=== PATIENT | female | born 1955 | race Caucasian/White ===

== ENCOUNTER 2020-07-27 19:47 | Emergency (ER) | payer OTHER, SELFPAY ==
[2020-07-27] VITALS (16 sets, daily range): BP systolic 140–192; BP diastolic 77–97; PULSE 60–78; RESP 8–20; TEMP 36.8; O2SAT 96–100
--- NOTE | ~2020-07-27 | XR_ITS ---
EXAMINATION: XR chest 2V DATE: 07/27/2020 20:49 INDICATION: Left-sided chest pain radiating down the left arm TECHNIQUE: PA and lateral views of the chest were obtained. COMPARISON: None FINDINGS: The lungs are clear with no focal airspace opacities, pulmonary edema, pleural effusion or pneumothor ax. The cardiomediastinal silhouette is normal. Dual lead pacemaker/AICD seen with leads projecting o ame the expected locations of the right atrium and right ventricle. Large calcified mediastinal lymph nodes consistent with old granulomatous disease. Cholecystectomy clips in right upper quadrant. Mild thoracic spondylosis. IMPRESSION: 1. No acute cardiopulmonary disease. Reviewed, dictated and finalized at location H. LOADER
--- NOTE | 2020-07-27 19:48 | ECG_ITS ---
Measurements Intervals [place] Rate: 68 P: 66 [place]: 166 QRS: -30 QRSD: 94 T: 12 QT: 441 QTc: 469 Interpretive Statements SINUS RHYTHM POSSIBLE LEFT ATRIAL ENLARGEMENT DELAYED PRECORDIAL R/S TRANSITION BORDERLINE ECG Electronically Signed On 07-27-2020 20:21:58 SLASHER TENDER HELPER by Cameron Rodrigues D.O.
--- NOTE | 2020-07-27 20:15 | PC.NURSE ---
patient in ED room 11 with elevated BP and left arm pain. see triage notes and initial assessment. patient on registered nurse cardiac telemetry. alert.oriented. daughter at bedside. patient initially frustrated with wait time and states that she had an EKG done but has not had labs drawn. states she has been here 30 minutes. SL inserted. labs drawn. warm blanket given. reviewed current treatment plan and expected wait time with patient and daughter. call light in reach.
[2020-07-27] MEDS: ASPIRIN 81 MG CHEWABLE TABLET 324 MG PO (20:30)
[2020-07-27 20:39] LABS: Basophils Absolute Auto 0.1 K/mm3 (0.0-0.1); Basophils Percent Auto 0.5 % (0.2-1.2); Eosinophils Absolute Auto 0.1 K/mm3 (0-0.3); Eosinophils Percent Auto 1.3 % (0-4.4); Hemoglobin 13.8 g/dL (12.0-15.0); Immature Granulocyte Absolute 0.04 K/mm3 (0.00-0.031); Immature Granulocyte Percent A 0.4 % (0-0.5); Lymphocytes Absolute Auto 1.04 K/mm3 (0.9-3.2); Mean Corpuscular HGB Conc 33.7 g/dl (32-36); Mean Corpuscular Hemoglobin 30.3 pg (26-34); Mean Corpuscular Volume 90.1 fl (80-100); Mean Platelet Volume 10.9 fl (7.4-10.4); Monocytes Absolute Auto 0.6 K/mm3 (0.1-0.6); Monocytes Percent Auto 6.7 % (2.6-8.5); Neutrophils Absolute Auto 7.6 K/mm3 (1.3-6.7); Neutrophils Percent Auto 80.1 % (45.5-73.1); Platelet Count Result 189 k/mm3 (150-375); Red Blood Count 4.55 M/mm3 (4.2-5.4); Red Cell Distribution Width 13.1 % (11.5-14.5); White Blood Count 9.5 K/mm3 (4.5-10.0)
[2020-07-27 20:50] LABS: Anion Gap 11 mmol/L (8-16); Blood Urea Nitrogen 18 mg/dL (7-17); Calcium 8.5 mg/dL (8.4-10.2); Carbon Dioxide 25 mmol/L (22-30); Chloride 105 mmol/L (98-107); Estimated Glomerular Filt Rate > 60; Glucose 164 mg/dL (65-105); INR 0.9; Potassium 3.2 mmol/L (3.4-5.0); Sodium 141 mmol/L (137-145)
[2020-07-27 20:51] LABS: Partial Thromboplastin Time 31.2 SECONDS (22.3-36.8)
--- NOTE | 2020-07-27 21:00 | ED.CHESTPAIN ---
HPI - Chest Pain General Chief Complaint: Chest Pain Stated Complaint: left arm pain Time Seen by Provider: 07/27/20 20:15 History of Present Illness HPI narrative: Patient is a 65-year-old female who presents the emergency department with chief complaint of chest pain. Patient reports that she had discomfort in her chest that radiated to her left arm. Patient reports that it is not improved by anything nor is worsened by anything. Patient reports that she has history of thyroid cancer and had a thyroidectomy that was complicated with having episodes of torsades that she had a AICD placed. The patient reports that she had a cardiac catheterization and stress test approximately 6 years ago that showed no evidence of blockages started at that time. Her Related Data Home Medications Medication Instructions Recorded Confirmed levothyroxine [Synthroid] 100 mcg DAILY 07/27/20 07/27/20 potassium chloride 20 meq PO DAILY 07/27/20 07/27/20 Allergies Allergy/AdvReac Type Severity Reaction Status Date / Time No Known Allergies Allergy Verified 07/27/20 22:34 Review of Systems Review of Systems: Narrative: CONSTITUTIONAL: Denies fever, chills, or sweats. EYES: Denies visual changes, redness, or discharge. ENT: Denies rhinorrhea, congestion, sore throat, or otalgia. CARDIOVASCULAR: Denies chest pain, palpitations, or edema. RESPIRATORY: Denies cough or dyspnea. GASTROINTESTINAL: Denies abdominal pain, nausea, vomiting, or diarrhea. GENITOURINARY: Denies dysuria or hematuria. SKIN: Denies rash or itching. MUSCULOSKELETAL: Denies back pain, joint pain, or myalgia. NEUROLOGIC: Denies headache, numbness, or weakness. PSYCHIATRIC: Denies anxiety or depression. All systems reviewed & are unremarkable except as noted in HPI and below PMFSH Comments Thyroid cancer, patient hemodynamically cardiac dysrhythmia room during prior COVID-19 low-dose infection AICD thyroidectomy Social history the patient denies smoking reports that she recently moved to the area after of her who from COVID-19 Exam Narrative: Exam Narrative: GENERAL: Well-appearing, well-nourished, and in no acute distress. HEAD: Normocephalic, atraumatic. EYES: PERRLA and EOMI. ENT: Nares clear, no rhinorrhea or epistaxis. Mucous membranes moist. NECK: Supple. CHEST: Clear to auscultation. No respiratory distress. HEART: Regular rate and rhythm. No murmur heard. Normal peripheral pulses. ABDOMEN: Soft, nontender, nondistended, normal active bowel sounds. EXTREMITIES: Normal range of motion. No edema. SKIN: Warm, dry, no rash. NEURO: No focal deficits. Alert and oriented x3. PSYCH: Normal mood and affect. Course Course Emergency Course: EKG shows sinus rhythm with no ST elevation or ST depression. Initial troponin was negative and repeat 3-hour troponin was negative. Patient's discomfort is feeling much better at this time Vital Signs Vital signs: Vital Signs Pulse Rate 70 07/27/20 19:56 Respiratory Rate 10 L 07/27/20 19:56 Pulse Oximetry 98 07/27/20 19:56 Temperature 36.8 C 07/27/20 23:25 Pulse Rate 60 07/27/20 23:25 Respiratory Rate 16 07/27/20 23:25 Blood Pressure 140/79 07/27/20 23:25 Pulse Oximetry 98 07/27/20 23:25 MDM - Chest Pain Lab Data Result diagrams: 07/27/20 20:32 07/27/20 20:32 Labs: Lab Results 07/27/20 07/27/20 07/27/20 Range/Units 20:32 20:32 20:32 WBC 9.5 (4.5-10.0) K/mm3 RBC 4.55 (4.2-5.4) M/mm3 Hgb 13.8 (12.0-15.0) g/dL Hct 41.0 (37.0-47.0) % MCV 90.1 (80-100) fl MCH 30.3 (26-34) pg MCHC 33.7 (32-36) g/dl RDW 13.1 (11.5-14.5) % Plt Count 189 (150-375) k/mm3 MPV 10.9 H (7.4-10.4) fl Immature Gran % (Auto) 0.4 (0-0.5) % Neut % (Auto) 80.1 H (45.5-73.1) % Lymph % (Auto) 11.0 L (18.3-44.2) % Mcdonough % (Auto) 6.7 (2.6-8.5) % Eos % (Auto) 1.3 (0-4.4) % Baso % (Auto) 0.5 (0.2-
[2020-07-27 21:02] LABS: Troponin I < 0.012 ng/mL (0.000-0.034)
--- NOTE | 2020-07-27 22:01 | PC.NURSE ---
provider at bedside. all test results reviewed with patient and daughter. will get repeat trop level around 2230 and plan for discharge. denies pain or needs at this time.
--- NOTE | 2020-07-27 22:35 | PC.NURSE ---
repeat trop drawn. patient wants to take monitors off and put her clothes back on. monitors removed. SL still in. daughter in room. call light in reach denies needs. aware of expected wait time for test results.
[2020-07-27 23:13] LABS: Troponin I < 0.012 ng/mL (0.000-0.034)
== END 2020-07-27 23:25 | disposition home or self-care (01) ==
PROVIDERS: Emergency Medicine; Emergency Provider Emergency Medicine; PCP Family Medicine
DX: R07.9 Chest pain, unspecified (principal); E89.0 Postprocedural hypothyroidism; Z85.850 Personal history of malignant neoplasm of thyroid; Z85.89 Personal history of malignant neoplasm of other organs and systems
CPT/HCPCS: 36415; 71046; 80048; 84484; 85025; 85610; 85730; 93005; 99284; A9270

== ENCOUNTER 2020-11-01 17:07 | Emergency (ER) | payer BC, SELFPAY ==
--- NOTE | ~2020-11-01 | XR_ITS ---
EXAMINATION: XR chest 2V DATE: 11/01/2020 17:47 INDICATION: Feeling of mass in throat. TECHNIQUE: Frontal and lateral views of the chest were obtained. COMPARISON: Chest 2 views 07/27/2020 FINDINGS: There is mild scarring at the lung apices. No pleural effusion or pneumothorax. The heart s ize is normal. Calcified mediastinal lymph nodes are consistent with old granulomatous disease. There is a left chest wall pacer with leads in the right atrium and right ventricle. Surgical clips in the right upper quadrant are likely from cholecystectomy. IMPRESSION: 1. Mild scarring at the lung apices. Reviewed, dictated and finalized at location A. SSED OR IMPRESSED LETTERING PAINTER
--- NOTE | ~2020-11-01 | XR_ITS ---
. EXAMINATION: XR soft tissue neck DATE: 11/01/2020 17:47 INDICATION: Feeling a mass in the throat. TECHNIQUE: 2 views of the neck soft tissues were obtained. COMPARISON: None. FINDINGS: The palatine tonsils, epiglottis, prevertebral soft tissues, and airway are normal. There a re surgical clips in the neck. IMPRESSION: 1. Normal neck soft tissues. Reviewed, dictated and finalized at location A. PENDENT SALES REPRESENTATIVE
--- NOTE | 2020-11-01 17:09 | ED.GENADULT ---
HPI - General Adult General Chief complaint: Skin/Abscess/Foreign Body Stated complaint: feeling like something is stuck in throat Time Seen by Provider: 11/01/20 17:09 Source: patient Mode of arrival: ambulatory Limitations: no limitations History of Present Illness HPI narrative: 65-year-old female patient presents to the [facility] with complaints of a sensation like something is in her throat. Patient states that she woke up about 330 this morning with the sensation and felt like she had to hack up a hairball . Patient states that she had Covid back in May and has been having intermittent nausea since then. Patient states she did take some meclizine which has helped the nausea. Denies any chest pain, shortness of breath. Patient states she is not having any trouble breathing or swallowing. Patient states she has been able to eat and drink without difficulty. Patient states she does take omeprazole twice a day as well as takes Tums intermittently. Related Data Home Medications Medication Instructions Recorded Confirmed levothyroxine [Synthroid] 100 mcg PO DAILY 11/01/20 11/01/20 omeprazole 20 mg PO DAILY 11/01/20 11/01/20 potassium chloride 10 meq PO DAILY 11/01/20 11/01/20 Allergies Allergy/AdvReac Type Severity Reaction Status Date / Time No Known Allergies Allergy Verified 11/01/20 17:09 Review of Systems Review of Systems: Narrative: CONSTITUTIONAL: Denies fever, chills, or sweats. EYES: Denies visual changes, redness, or discharge. ENT: Denies rhinorrhea, congestion, sore throat, or otalgia. Positive sensation of something in her throat since this morning CARDIOVASCULAR: Denies chest pain, palpitations, or edema. RESPIRATORY: Denies cough or dyspnea. GASTROINTESTINAL: Denies abdominal pain, nausea, vomiting, or diarrhea. GENITOURINARY: Denies dysuria or hematuria. SKIN: Denies rash or itching. MUSCULOSKELETAL: Denies back pain, joint pain, or myalgia. NEUROLOGIC: Denies headache, numbness, or weakness. PSYCHIATRIC: Denies anxiety or depression. [facility] Past Medical History Medical History (Updated 11/01/20 @ 17:53 by JIMENEZ Ochoa) GERD (gastroesophageal reflux disease) ICD (implantable cardioverter-defibrillator) battery depletion QT prolongation Thyroid cancer TMJ (dislocation of temporomandibular joint) Torsades de pointes Surgical History Surgical History (Updated 11/01/20 @ 17:49 by JIMENEZ Ochoa) History of appendectomy Hx of cholecystectomy Social History Social History Gender identity (if verbalized by the patient): Female Comments At the time of my signature I agree with nursing past medical history, surgical, social, and family history. There is no relevant family history pertinent to the presenting complaint. Exam Narrative: Exam Narrative: GENERAL: Well-appearing, well-nourished, and in no acute distress. HEAD: Normocephalic, atraumatic. EYES: PERRLA and EOMI. ENT: Nares clear, no rhinorrhea or epistaxis. Mucous membranes moist. Posterior pharynx with no erythema, tonsillar enlargement, exudates or lesions present. NECK: Supple. No lymphadenopathy CHEST: Clear to auscultation. No respiratory distress. Patient able talk in clear complete sentences. HEART: Regular rate and rhythm. No murmur heard. Normal peripheral pulses. ABDOMEN: Soft, nontender, nondistended, normal active bowel sounds. EXTREMITIES: Normal range of motion. No edema. SKIN: Warm, dry, no rash. NEURO: No focal deficits. Alert and oriented x3. Course Reevaluation(s) Reevaluation #1: Reevaluated patient after her x-rays had resulted. Notified her that the x-rays do not show any obvious foreign bodies or masses at this time. Discussed with patient that she could definitely have a flareup worsening of her GERD. Discussed with patient and we will go ahead and put her on some Pepcid along with her omeprazole for the next couple of weeks and s
[2020-11-01 17:18] VITALS: BP 132/78; PULSE 76; RESP 20; TEMP 36.7; O2SAT 99
== END 2020-11-01 17:55 | disposition home or self-care (01) ==
PROVIDERS: Emergency Provider Nurse Practitioner Family; PCP Family Medicine
DX: K21.9 Gastro-esophageal reflux disease without esophagitis (principal); Z95.810 Presence of automatic (implantable) cardiac defibrillator; Z85.850 Personal history of malignant neoplasm of thyroid
CPT/HCPCS: 70360; 71046; 99213; G0463

== ENCOUNTER 2021-06-27 02:47 | Day surgery (SDC) | payer MEDICARE, OTHER, SELFPAY ==
[2021-06-11 14:38] VITALS: BMI 24.9
--- NOTE | 2021-06-26 10:25 | WPDANESEPPF ---
Anes - Initial Pre Proc Eval Procedure: Operation Date: 06/27/21 09:15 Proposed Procedures p Esophagogastroduodenoscopy & Screening Colonoscopy - Ralph Hammonds MD Date/Time: 06/26/21 10:25 Surgeon: Ralph Hammonds MD Pre Op Diagnosis: neoplasm screening, GERD Patient Data Age: 66 Gender: F Height: 1.65 m Weight: 68 kg Allergies Allergy/AdvReac Type Severity Reaction Status Date / Time No Known Allergies Allergy Verified 06/27/21 08:18 Home Medications Medication Instructions Recorded Confirmed Type levothyroxine [Synthroid] 100 mcg PO DAILY 11/01/20 06/27/21 History omeprazole 20 mg PO DAILY 11/01/20 06/27/21 History potassium chloride 10 meq PO DAILY 11/01/20 06/27/21 History cholecalciferol (vitamin D3) 50 mcg PO DAILY 06/11/21 06/27/21 History [Vitamin D3] Patient hx anesthesia problems: none Family hx anesthesia problems: none Results Review: All pre-operative results and documents have been reviewed as part of the pre-operative evaluation. [facility] Past Medical History Medical History (Updated 05/31/21 @ 09:33 by Ralph Hammonds MD) Colon cancer screening GERD (gastroesophageal reflux disease) ICD (implantable cardioverter-defibrillator) battery depletion QT prolongation Thyroid cancer TMJ (dislocation of temporomandibular joint) Torsades de pointes Surgical History Surgical History History of appendectomy Hx of cholecystectomy Social History Social History (Updated 05/31/21 @ 09:09 by Natali Paige CMA) Smoking status: Never smoker Alcohol intake: never Substance use: never Living arrangements: with family Gender identity (if verbalized by the patient): Female Spiritual care concerns: No Anes - Eval Final PreProcedure Day of Procedure 06/26/21 10:25 Patient weight: normal Heart: regular rate and rhythm Lungs: clear to auscultation and normal air movement Airway: Mallampati scale class II Neurological: alert and oriented Last oral intake: >/= 8 hours ASA classification: IV Emergent: no Anesthetic plan: proceed Anesthesia type and monitoring: general GIVS and standard monitoring Results Review: All pre-operative results and documents have been reviewed as part of the pre-operative evaluation. Informed Consent: The patient's anesthetic plan and its attendant risks and benefits were discussed with the patient/family/POA. Questions were solicited and answers provided to the satisfaction of the patient/family/POA.
[2021-06-27 08:20] VITALS: BP 124/95; PULSE 84; RESP 16; TEMP 37; O2SAT 98
[2021-06-27] MEDS: LACTATED RINGERS 1,000 ML 150 ML IV CONT (08:30)
--- NOTE | 2021-06-27 09:47 | WPDHPUPDATE1 ---
History and Physical Update Update Date/Time: 06/27/21 09:47 History and Physical has been reviewed, including an updated exam of the patient. There are NO changes in the patient's condition. Risks, benefits, and alternatives have been discussed and questions answered. Patient agrees to proceed with procedure.
[2021-06-27 10:20] VITALS: BP 103/78; PULSE 85; RESP 21; O2SAT 100
[2021-06-27 10:30] VITALS: BP 129/72; PULSE 68; RESP 14; O2SAT 99
[2021-06-27 10:40] VITALS: BP 133/68; PULSE 70; RESP 24; O2SAT 100
== END 2021-06-27 11:04 | disposition home or self-care (01) ==
PROVIDERS: PCP Family Medicine; Visit Provider Internal Medicine Gastroenterology
PROC: 0DJ08ZZ Inspection of Upper Intestinal Tract, Via Natural or Artificial Opening Endoscopic (ICD-10-PCS; CPT 43235; principal; 2021-06-27 09:15)
DX: Z12.11 Encounter for screening for malignant neoplasm of colon (principal); K64.8 Other hemorrhoids; K44.9 Diaphragmatic hernia without obstruction or gangrene; K29.50 Unspecified chronic gastritis without bleeding; K21.9 Gastro-esophageal reflux disease without esophagitis; Z85.850 Personal history of malignant neoplasm of thyroid
CPT/HCPCS: 43239; G0121; 88305; J2704; J7120

== ENCOUNTER 2021-07-22 05:22 | Emergency (ER) | payer MEDICARE, OTHER, SELFPAY ==
--- NOTE | ~2021-07-22 | CT_ITS ---
EXAMINATION: CT thoracic spine wo con DATE: 07/22/2021 06:09 INDICATION: Thoracic back pain TECHNIQUE: Computed tomography (CT) of the thoracic spine was performed without intravenous contrast. The dose-length product (DLP) was 470.91 mGy-cm. Iterative reconstruction was used. COMPARISON: None FINDINGS: There is no fracture, dislocation, or subluxation. Thoracic dextrocurvature is noted. There is mild loss of intervertebral disc space height in the midthoracic spine. The vertebral body height s are maintained. The paravertebral soft tissues are normal. Small degenerative osteophytes project f rom the anterior endplates of multiple vertebral bodies. IMPRESSION: 1. Mild thoracic spondylosis without acute findings. Reviewed, dictated and finalized at location A. TEACHER
[2021-07-22 05:28] VITALS: BP 179/91; PULSE 97; RESP 18; TEMP 36.3; O2SAT 99
[2021-07-22] MEDS: KETOROLAC 30 MG/ML VIAL (*BKC) IM (05:50)
--- NOTE | 2021-07-22 05:57 | PC.NURSE ---
Patient in CT at this time.
--- NOTE | 2021-07-22 06:15 | ED.GENADULT ---
HPI - General Adult General Chief complaint: Back Pain/Injury <Leno Hammond MD - Last Filed: 07/22/21 06:18> Stated complaint: back pain since fri <Leno Hammond MD - Last Filed: 07/22/21 06:18> Time Seen by Provider: 07/22/21 05:37 <Leno Hammond MD - Last Filed: 07/22/21 06:18> History of Present Illness HPI narrative: Patient is a 66-year-old female who presents the emergency department. The patient is said several ago right is with her family and that she started having pain in her low back and also in her thoracic area. Patient reports she was manipulated by a chiropractor and still has been having pain severe in the thoracic region between her shoulder blades and reports that tonight she had some tingling in her left arm <Leno Hammond MD - Last Filed: 07/22/21 06:18> Related Data Home medications: Home Medications Medication Instructions Recorded Confirmed levothyroxine [Synthroid] 100 mcg PO DAILY 11/01/20 06/27/21 omeprazole 20 mg PO DAILY 11/01/20 06/27/21 potassium chloride 10 meq PO DAILY 11/01/20 06/27/21 cholecalciferol (vitamin D3) 50 mcg PO DAILY 06/11/21 06/27/21 [Vitamin D3] meclizine mg 07/22/21 <Leno Hammond MD - Last Filed: 07/22/21 06:18> Allergies/adverse reactions: Allergies Allergy/AdvReac Type Severity Reaction Status Date / Time No Known Allergies Allergy Verified 07/22/21 05:34 <Leno Hammond MD - Last Filed: 07/22/21 06:18> Review of Systems Review of Systems: A 10 system review of systems was completed on the patient and is negative except for what is stated in the HPI. Nursing and ancillary documentation was reviewed. <Leno Hammond MD - Last Filed: 07/22/21 06:18> PMFSH Past Medical History Medical History: Medical History Colon cancer screening GERD (gastroesophageal reflux disease) ICD (implantable cardioverter-defibrillator) battery depletion QT prolongation Thyroid cancer TMJ (dislocation of temporomandibular joint) Torsades de pointes <Leno Hammond MD - Last Filed: 07/22/21 06:18> Surgical History Surgical History: Surgical History History of appendectomy Hx of cholecystectomy <Leno Hammond MD - Last Filed: 07/22/21 06:18> Social History Social History: Social History Smoking status: Never smoker Alcohol intake: never Substance use: never Gender identity (if verbalized by the patient): Female Spiritual care concerns: No <Leno Hammond MD - Last Filed: 07/22/21 06:18> Exam Narrative: GENERAL: Well-appearing, well-nourished, and in no acute distress. HEAD: Normocephalic, atraumatic. EYES: PERRLA and EOMI. ENT: Nares clear, no rhinorrhea or epistaxis. Mucous membranes moist. NECK: Supple. CHEST: Clear to auscultation. No respiratory distress. HEART: Regular rate and rhythm. No murmur heard. Normal peripheral pulses. ABDOMEN: Soft, nontender, nondistended, normal active bowel sounds. EXTREMITIES: Normal range of motion. No edema. SKIN: Warm, dry, no rash. NEURO: No focal deficits. Alert and oriented x3. PSYCH: Normal mood and affect. <Leno Hammond MD - Last Filed: 07/22/21 06:18> Course Reevaluation(s) Reevaluation #1: Received signout on the patient pending imaging and urine. Imaging was without acute process urine did appear infectious. Patient was reassessed notified of results she did report some increased urinary frequency and subjective fever at home prior to arrival to the ER. Patient all did feel improved. Suspect UTI possibly early pyelonephritis patient is comfortable with a trial of outpatient antibiotics given her improvement. Return precautions given <Refugio Razo
[2021-07-22 06:40] LABS: Add Urine Microscopic? YES; Appearance Urine Cloudy (Clear); Bacteria Urine Trace /hpf; Bilirubin Urine Negative (Negative); Blood Urine Negative (Negative); Color Urine Yellow (Yellow); Glucose Urine UA Negative (Negative); Ketones Urine Negative (Negative); Leukocyte Esterase Ur 1+ LEU/UL (Negative); Mucus Urine Rare /lpf; Nitrate Urine Negative (Negative); Protein Urine 1+ mg/dL (Negative); Specific Grav Ur 1.013 (1.001-1.035); Urobilinogen Urine Negative mg/dL (<2.0); WBC Urine >75 /hpf
[2021-07-22 07:02] VITALS: BP 155/83; PULSE 90; RESP 17; O2SAT 98
== END 2021-07-22 07:56 | disposition home or self-care (01) ==
PROVIDERS: Emergency Medicine; Emergency Provider Emergency Medicine; PCP Family Medicine
DX: N39.0 Urinary tract infection, site not specified (principal); M54.9 Dorsalgia, unspecified; Z87.19 Personal history of other diseases of the digestive system; Z85.850 Personal history of malignant neoplasm of thyroid; Z90.89 Acquired absence of other organs; Z90.49 Acquired absence of other specified parts of digestive tract
CPT/HCPCS: 72128; 81001; 87077; 87086; 87186; 96372; 99284; J1885

== ENCOUNTER 2021-08-30 13:46 | Emergency (ER) | payer MEDICARE, OTHER, SELFPAY ==
[2021-08-30 14:27] VITALS: BP 136/74; PULSE 90; RESP 18; TEMP 37.3; O2SAT 98
--- NOTE | 2021-08-30 15:42 | ED.URI ---
HPI - URI/Sore Throat General Chief Complaint: Upper Respiratory Infection Stated Complaint: Headache,Nausea,Diarrhea,Cough,Body Aches Time Seen by Provider: 08/30/21 15:15 Source: patient, family and RN notes reviewed Mode of arrival: ambulatory Limitations: no limitations History of Present Illness HPI Narrative: 66 [facility] old [facility] by son with stated symptoms of headache cough, sore throat with some nausea and episodes of diarrhea. She reports that she has had symptoms for the past 3-4 days. She states that she has been COVID and flu vacciated and took home COVID test today which was negative.Patient reports that she has been taking some Tylenol and Ibuprofen and some OTC sinus medication. MD elicited complaint: cough, sore throat, rhinorrhea, nasal congestion and other (headache with nausea and diarrhea) Related Data Home Medications Medication Instructions Recorded Confirmed levothyroxine [Synthroid] 0.1 mcg DAILY 08/30/21 08/30/21 omeprazole 20 mg BID 08/30/21 08/30/21 potassium chloride 10 meq BID 08/30/21 08/30/21 Allergies Allergy/AdvReac Type Severity Reaction Status Date / Time anything prolongs QT Allergy Unknown Uncoded 08/30/21 14:42 Review of Systems Review of Systems: CONSTITUTIONAL: Reports low grade fever, no chills, or sweats. EYES: Denies visual changes, redness, or discharge. ENT:Positive for rhinorrhea, congestion, sore throat, no otalgia. CARDIOVASCULAR: Denies chest pain, palpitations, or edema. RESPIRATORY: Positive for cough denies dyspnea. GASTROINTESTINAL: Denies abdominal pain, positive for nausea,no vomiting, positive for episodes of diarrhea. GENITOURINARY: Denies dysuria or hematuria. SKIN: Denies rash or itching. MUSCULOSKELETAL: Denies back pain, joint pain,denies body aches. NEUROLOGIC: Positive for headache,no numbness, or weakness. PSYCHIATRIC: Denies anxiety or depression. All systems reviewed & are unremarkable except as noted in HPI and below PMFSH Past Medical History Medical History Colon cancer screening GERD (gastroesophageal reflux disease) ICD (implantable cardioverter-defibrillator) battery depletion QT prolongation Thyroid cancer TMJ (dislocation of temporomandibular joint) Torsades de pointes Surgical History Surgical History History of appendectomy Hx of cholecystectomy Social History Social History Smoking status: Never smoker Alcohol intake: never Substance use: never Gender identity (if verbalized by the patient): Female Spiritual care concerns: No Comments At time of signature, agree with nursing past medical, surgical, social and family history. There is no relevant family history pertinent to the presenting complaint Exam Narrative: GENERAL: Well-appearing, well-nourished, and in no acute distress. HEAD: Normocephalic, atraumatic. EYES: PERRLA and EOMI. ENT: Nares red with membranes swollen clear rhinorrhea no epistaxis. Mucous membranes moist.TM's normal with good light reflex, some dried wax noted.throat red with no lesions or exudates no acute tonsil enlargement. NECK: Supple.no lymphadenopathy CHEST: Clear to auscultation. No respiratory distress.cough noted with no tachypnea or dyspnea, SAO2 98% on room air. HEART: Regular rate and rhythm. No murmur heard. Normal peripheral pulses. ABDOMEN: Soft, nontender to palpation., nondistended, normal active bowel sounds. EXTREMITIES: Normal range of motion. No edema. SKIN: Warm, dry, no rash. NEURO: No focal deficits. Alert and oriented x3. Course Vital Signs Vital signs: Vital Signs Temperature 37.3 C 08/30/21 14:27 Pulse Rate 90 08/30/21 14:27 Respiratory Rate 18 08/30/21 14:27 Blood Pressure 136/74 08/30/21 14:27 Pulse Oximetry 98 08/30/21 14:27 Temperature 37.3 C
== END 2021-08-30 16:18 | disposition home or self-care (01) ==
PROVIDERS: Emergency Provider Registered Nurse; PCP Family Medicine
DX: J32.9 Chronic sinusitis, unspecified (principal); B96.89 Other specified bacterial agents as the cause of diseases classified elsewhere
CPT/HCPCS: 87081; 87804; 87880; 99213; G0463

== ENCOUNTER 2021-09-20 09:19 | Outpatient (CLI) | payer MEDICARE, OTHER, SELFPAY ==
--- NOTE | ~2021-09-20 | XR_ITS ---
EXAMINATION: XR chest 2V EXAM DATE: 09/20/2021 09:33 INDICATION: COVID follow-up. TECHNIQUE: Frontal and lateral projections of the chest obtained and reviewed. Comparison is made to prior examination from 11/01/2020. FINDINGS: Mild hyperinflation with narrow cardiac silhouette. There is a dual lead pacemaker/AICD se en with leads projecting over the expected locations of the right atrial appendage and right ventricl e. There are cholecystectomy clips. No confluent consolidation, pneumothorax or pleural effusion susp ected. There are no osseous abnormalities identified. IMPRESSION: No focal airspace disease. Reviewed, dictated and finalized at location A. RLEADER IMPRESSION: No focal airspace disease.
== END 2021-09-20 09:20 | disposition home or self-care (01) ==
PROVIDERS: PCP Family Medicine; Visit Provider Family Medicine
DX: R05.9 Cough, unspecified (principal)
CPT/HCPCS: 71046

== ENCOUNTER 2021-10-29 16:37 | Emergency (ER) | payer MEDICARE, OTHER, SELFPAY ==
--- NOTE | ~2021-10-29 | CT_ITS ---
EXAMINATION: CT abdomen pelvis w con EXAM DATE: 10/30/2021 00:15 INDICATION: Epigastric pain X 1 DAY. TECHNIQUE: Spiral CT of the abdomen and pelvis was performed following intravenous injection of 100 m L Omnipaque 350. Axial, coronal and sagittal images of the abdomen and pelvis were reviewed. The do se-length product (DLP) for this examination was 388.26 mGy-cm. The exposure was tailored according to patient size (auto mA exposure control), and iterative reconstruction (ASIR) was used as additiona l dose reduction technique. There is no prior study for comparison. FINDINGS: The liver, spleen, adrenal glands and pancreas are unremarkable. There are cholecystectomy clips. Portal and splenic veins are patent. Kidneys enhance symmetrically. There is no hydronephr osis. There is a 6 cm right renal cyst. The uterus is retroverted and morphologically normal. The bladder is unremarkable. There is no retroperitoneal or pelvic lymphadenopathy. The appendix is not positively visualized. There is no pericecal inflammatory change to suggest appe ndicitis. The stomach and small bowel are unremarkable. There is expected amount of colonic stool. No free intraperitoneal gas. The heart is normal in size. There are no pericardial or pleural e ffusions. The lung bases are unremarkable. The bones are unremarkable. Small bone island in L3. Car diac/AICD lead. IMPRESSION: 1. No acute intra-abdominal findings. Reviewed, dictated and finalized at location A. [employer] O[employer]UPATIONAL THER[employer]IST
[2021-10-29 16:40] VITALS: BP 164/88; PULSE 73; RESP 18; TEMP 36.4; O2SAT 100
[2021-10-29 20:23] VITALS: BP 152/78; PULSE 70; RESP 17; TEMP 36.6; O2SAT 99
--- NOTE | 2021-10-29 22:42 | ECG_ITS ---
Measurements Intervals [place] Rate: 72 P: 71 [place]: 177 QRS: -10 QRSD: 90 T: 30 QT: 433 QTc: 477 Interpretive Statements SINUS RHYTHM POSSIBLE LEFT ATRIAL ENLARGEMENT CANNOT RULE OUT SEPTAL INFARCT, AGE INDETERMINATE BORDERLINE ST ABNORMALITY- ANTEROLATERAL LEADS ABNORMAL ECG Electronically Signed On 10-30-2021 6:17:10 INSIDE SALES PROFESSIONAL by Cameron Rodrigues D.O.
--- NOTE | 2021-10-29 23:01 | ED.ABDPAIN ---
HPI - Abdominal Pain General Chief Complaint: Abdominal Pain Stated Complaint: epigastric pain, diaphoretic Time Seen by Provider: 10/29/21 22:44 Source: patient Mode of arrival: ambulatory Limitations: no limitations History of Present Illness HPI narrative: This is a 66 year old female that presents to the ER for epigastric pain. Reports it started earlier this afternoon. It has been constant since onset, but has improved. Reports history of similar episodes for which she has been diagnosed with Sphincter of Oddi spasm. Reports the pain is an intense ache. Denies fever, chest pain, shortness of breath, nausea, or vomiting. Related Data Home Medications Medication Instructions Recorded Confirmed levothyroxine [Synthroid] 0.1 mcg DAILY 08/30/21 08/30/21 omeprazole 20 mg BID 08/30/21 08/30/21 potassium chloride 10 meq BID 08/30/21 08/30/21 Allergies Allergy/AdvReac Type Severity Reaction Status Date / Time anything prolongs QT Allergy Unknown Uncoded 08/30/21 14:42 Review of Systems Review of Systems: CONSTITUTIONAL: Denies fever CARDIOVASCULAR: Denies chest pain RESPIRATORY: Denies dyspnea. GASTROINTESTINAL: Reports abdominal pain. Denies nausea, vomiting, or diarrhea. GENITOURINARY: Denies dysuria All systems reviewed & are unremarkable except as noted in HPI and below PMFSH Past Medical History Medical History Colon cancer screening GERD (gastroesophageal reflux disease) ICD (implantable cardioverter-defibrillator) battery depletion QT prolongation Thyroid cancer TMJ (dislocation of temporomandibular joint) Torsades de pointes Surgical History Surgical History History of appendectomy Hx of cholecystectomy Social History Social History Smoking status: Never smoker Alcohol intake: never Substance use: never Gender identity (if verbalized by the patient): Female Spiritual care concerns: No Exam Narrative: GENERAL: Well-appearing, well-nourished, and in no acute distress. HEAD: Normocephalic, atraumatic. EYES: EOMI. CHEST: Clear to auscultation. No respiratory distress. No wheezes rales or rhonchi HEART: Regular rate and rhythm. No murmur heard. Normal peripheral pulses. ABDOMEN: Soft, nondistended, normal active bowel sounds. Tender to palpation in epigastrium, without guarding EXTREMITIES: Normal range of motion. No edema. SKIN: Warm, dry, no rash. NEURO: No focal deficits. Alert and oriented x3. PSYCH: Normal mood and affect Course Vital Signs Vital signs: Vital Signs Temperature 97.6 F 10/29/21 16:40 Pulse Rate 73 10/29/21 16:40 Respiratory Rate 18 10/29/21 16:40 Blood Pressure 164/88 H 10/29/21 16:40 Pulse Oximetry 100 10/29/21 16:40 Temperature 97.9 F 10/29/21 20:23 Pulse Rate 70 10/29/21 23:35 Respiratory Rate 16 10/29/21 23:35 Blood Pressure 163/80 H 10/29/21 23:35 Pulse Oximetry 100 10/29/21 23:35 MDM - Abdominal Pain MDM Narrative Medical decision making narrative: Patient presents to the emergency department for epigastric pain present since this afternoon. She is afebrile and nontoxic-appearing. Abdominal exam is benign. CBC and metabolic panel without concerning findings. Lipase is normal. UA without evidence of infection. CT scan of the abdomen and pelvis shows findings consistent with distal esophagitis and antral gastritis. EKG without acute ST changes. Patient was updated on case findings. She reports relief with Protonix. 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 She was given warnings to return to the ER Lab Data Attestation: I reviewed the patient's lab results. Result diagrams: 10/29/21 23:28 10/29/21 23:28 Labs: Lab Results 10/29/21 10/29/21 10/29/21 Range/Units 23:28 23:28 23:28 WBC 7.4 (4.5-10.0) K/mm3 RB
[2021-10-29 23:35] VITALS: BP 163/80; PULSE 70; RESP 16; O2SAT 100
[2021-10-29 23:36] LABS: Basophils Percent Auto 0.5 % (0.2-1.2); Eosinophils Absolute Auto 0.1 K/mm3 (0-0.3); Eosinophils Percent Auto 1.7 % (0-4.4); Hematocrit 41.9 % (37.0-47.0); Immature Granulocyte Absolute 0.03 K/mm3 (0.00-0.031); Immature Granulocyte Percent A 0.4 % (0-0.5); Lymphocytes Absolute Auto 1.86 K/mm3 (0.9-3.2); Mean Corpuscular HGB Conc 33.4 g/dl (32-36); Mean Corpuscular Hemoglobin 30.8 pg (26-34); Mean Corpuscular Volume 92.1 fl (80-100); Mean Platelet Volume 10.9 fl (7.4-10.4); Monocytes Absolute Auto 0.6 K/mm3 (0.1-0.6); Monocytes Percent Auto 8.5 % (2.6-8.5); Neutrophils Absolute Auto 4.7 K/mm3 (1.3-6.7); Neutrophils Percent Auto 63.9 % (45.5-73.1); Platelet Count Result 198 k/mm3 (150-375); Red Blood Count 4.55 M/mm3 (4.2-5.4); White Blood Count 7.4 K/mm3 (4.5-10.0)
[2021-10-29] MEDS: PANTOPRAZOLE SODIUM IV 40 MG VIAL IV PUSH (23:36)
[2021-10-29 23:46] LABS: Add Urine Microscopic? YES; Appearance Urine Clear (Clear); Bilirubin Urine Negative (Negative); Blood Urine Negative (Negative); Color Urine Yellow (Yellow); Glucose Urine UA Negative (Negative); Ketones Urine 1+ mg/dL (Negative); Leukocyte Esterase Ur Negative LEU/UL (Negative); Mucus Urine Rare /lpf; Nitrate Urine Negative (Negative); Protein Urine Negative (Negative); RBC Urine 0-2 /hpf (0-2); Specific Grav Ur 1.017 (1.001-1.035); Urobilinogen Urine Negative mg/dL (<2.0); WBC Urine 0-3 /hpf
[2021-10-29 23:53] LABS: Alanine Aminotransferase 19 U/L (4-35); Albumin Level 4.5 g/dL (3.5-5.1); Alkaline Phosphatase 80 U/L (38-126); Anion Gap 8 mmol/L (8-16); Aspartate Amino Transferase 35 U/L (14-36); Bilirubin,Total 1.2 mg/dL (0.2-1.3); Blood Urea Nitrogen 22 mg/dL (7-17); Calcium 8.4 mg/dL (8.4-10.2); Carbon Dioxide 24 mmol/L (22-30); Chloride 105 mmol/L (98-107); Estimated CRCL calculation 62 ml/min; Estimated Glomerular Filt Rate > 60; Glucose 95 mg/dL (65-110); Lipase 115 U/L (23-300); Potassium 3.9 mmol/L (3.4-5.0); Sodium 137 mmol/L (137-145)
[2021-10-30 01:34] VITALS: BP 153/91; PULSE 100; RESP 14; O2SAT 100
== END 2021-10-30 01:35 | disposition home or self-care (01) ==
PROVIDERS: Physician Assistant; Emergency Provider Emergency Medicine; PCP Family Medicine
DX: K29.00 Acute gastritis without bleeding (principal); K21.9 Gastro-esophageal reflux disease without esophagitis; Z85.850 Personal history of malignant neoplasm of thyroid; R94.31 Abnormal electrocardiogram [ECG] [EKG]
CPT/HCPCS: 36415; 74177; 80053; 81001; 83690; 85025; 85610; 85730; 93005; 96374; 99284; C9113; Q9967

== ENCOUNTER 2021-12-04 14:58 | Outpatient (CLI) | payer MEDICARE, OTHER, SELFPAY ==
[2021-12-04 15:32] LABS: Alanine Aminotransferase 25 U/L (4-35); Albumin Level 4.1 g/dL (3.5-5.1); Alkaline Phosphatase 83 U/L (38-126); Aspartate Amino Transferase 27 U/L (14-36); Bilirubin,Total 0.4 mg/dL (0.2-1.3)
== END 2021-12-04 14:59 | disposition home or self-care (01) ==
LOC: ANHLAB 15:02
PROVIDERS: PCP Family Medicine; Visit Provider Nurse Practitioner Family
DX: R10.13 Epigastric pain (principal)
CPT/HCPCS: 36415; 80076

== ENCOUNTER 2022-10-23 04:03 | Emergency (ER) | payer MEDICARE, OTHER, SELFPAY ==
[2022-10-23 04:07] VITALS: BP 170/90; PULSE 76; RESP 20; TEMP 37; O2SAT 100
[2022-10-23 06:23] VITALS: BP 149/85; PULSE 64; RESP 16; O2SAT 100
== END 2022-10-23 06:25 | disposition left against medical advice (07) ==
PROVIDERS: PCP Family Medicine
DX: R51.9 Headache, unspecified (principal)
CPT/HCPCS: 99199

== ENCOUNTER 2022-12-21 16:06 | Emergency (ER) | payer MEDICARE, OTHER, SELFPAY ==
[2022-12-21 16:21] VITALS: BP 140/75; PULSE 80; RESP 18; TEMP 37.2; O2SAT 98
--- NOTE | 2022-12-21 16:52 | ED.URI ---
HPI - URI/Sore Throat General Chief Complaint: Upper Respiratory Infection Stated Complaint: sorethroat Time Seen by Provider: 12/21/22 16:25 Source: patient Mode of arrival: ambulatory Limitations: no limitations History of Present Illness HPI Narrative: Yasmine is a 67-year-old female patient presenting to the clinic today with complaints of sore throat, cough, and mild congestion times rate 3 days. She reports that her grandkids were positive with strep. She denies any fever or chills. MD elicited complaint: cough, sore throat and nasal congestion Related Data Home Medications Medication Instructions Recorded Confirmed levothyroxine 100 mcg tablet 0.1 mcg DAILY 08/30/21 12/04/21 (Synthroid) omeprazole 20 mg capsule,delayed 20 mg BID 08/30/21 12/04/21 release potassium chloride 10 mEq 10 meq BID 08/30/21 12/04/21 capsule,extended release cholecalciferol (vitamin D3) 250 2,000 mcg PO DAILY 12/04/21 12/04/21 mcg (10,000 unit) capsule Allergies Allergy/AdvReac Type Severity Reaction Status Date / Time anything prolongs QT Allergy Unknown Uncoded 12/04/21 13:50 Review of Systems Review of Systems: Pertinent positives per HPI. Patient denies any fever, chills, rash, headache, visual changes, dizziness, shortness of breath, chest pain, palpitations, nausea, vomiting, diarrhea, constipation, abdominal pain, or any urinary issues. [facility] Past Medical History Medical History (Updated 12/21/22 @ 16:53 by Ignacio Holbrook APRN) GERD (gastroesophageal reflux disease) ICD (implantable cardioverter-defibrillator) battery depletion QT prolongation Thyroid cancer TMJ (dislocation of temporomandibular joint) Torsades de pointes Surgical History Surgical History History of appendectomy Hx of cholecystectomy Social History Social History Smoking status: Never smoker Alcohol intake: never Substance use: never Living arrangements: with family Gender identity (if verbalized by the patient): Female Spiritual care concerns: No Comments At the time of my signature, I reviewed and agree with the nursing past medical, surgical, social, and family history. There is no relevant family history pertinent to the patient complaint. Exam Narrative: General: Well-developed, well nourished, in no apparent distress Head: Normocephalic, atraumatic Eyes: Pupils equally round and reactive to light bilaterally, EOM intact, sclera and conjunctive clear, no discharge, lids normal Ears: TMs intact and clear, ear canals clear, no drainage, grossly hearing normal. Nose: Nares patent, clear discharge, no inflammation, no sinus tenderness. Mouth: Oral pharynx mildly red without lesions or masses, good dentition, MMM. Postnasal drip Neck: Supple, trachea midline, no enlargement of anterior or posterior cervical nodes, no thyroid masses or goiter palpable. Cardio: Regular rate and rhythm, s1 and s2 normal, no murmur appreciated. Resp: Clear to auscultation bilaterally, no rhonchi, rales, wheezing or rubs Course Course Emergency Course: Portions of this record may have been created with voice recognition software. Level of Care: Express Care Visit Vital Signs Vital signs: Vital Signs Temperature 37.2 C 12/21/22 16:21 Pulse Rate 80 12/21/22 16:21 Respiratory Rate 18 12/21/22 16:21 Blood Pressure 140/75 12/21/22 16:21 Pulse Oximetry 98 12/21/22 16:21 Oxygen Delivery Room Air 12/21/22 16:21 Temperature 37.2 C 12/21/22 16:21 Pulse Rate 80 12/21/22 16:21 Respiratory Rate 18 12/21/22 16:21 Blood Pressure 140/75 12/21/22 16:21 Pulse Oximetry 98 12/21/22 16:21 Oxygen Delivery Room Air 12/21/22 16:21 Vital signs reviewed MDM - URI/Sore Throat MDM Narrative Medical decision making narrative: At the time of visit patient is resting comfor
== END 2022-12-21 16:55 | disposition home or self-care (01) ==
PROVIDERS: Emergency Provider Nurse Practitioner Family; PCP Family Medicine
DX: J06.9 Acute upper respiratory infection, unspecified (principal); J02.9 Acute pharyngitis, unspecified; Z20.822 Contact with and (suspected) exposure to COVID-19; K21.9 Gastro-esophageal reflux disease without esophagitis; Z95.810 Presence of automatic (implantable) cardiac defibrillator; Z85.850 Personal history of malignant neoplasm of thyroid
CPT/HCPCS: 87081; 87426; 87880; 99213; C9803; G0463

== ENCOUNTER 2022-12-27 10:15 | Emergency (ER) | payer MEDICARE, OTHER, SELFPAY ==
[2022-12-27 10:18] VITALS: BP 135/83; PULSE 65; RESP 15; TEMP 36.7; O2SAT 98
--- NOTE | 2022-12-27 10:35 | ED.GENADULT ---
HPI - General Adult General Chief complaint: Ear Stated complaint: Rt Ear Irritation,Sinus Pressure Time Seen by Provider: 12/27/22 10:26 Source: patient and RN notes reviewed Mode of arrival: ambulatory Limitations: no limitations History of Present Illness HPI narrative: Patient presents today complaining of a one-week history of nasal congestion and cough, worse over the last 2 days, 2 day history of right ear pain. Denies shortness of breath or fever. She has been taking Advil sinus and allergy with Mucinex DM with mild relief. Denies history of asthma or COPD. She is a nonsmoker. Related Data Home Medications Medication Instructions Recorded Confirmed levothyroxine 100 mcg tablet 0.1 mcg DAILY 08/30/21 12/27/22 (Synthroid) omeprazole 20 mg capsule,delayed 20 mg BID 08/30/21 12/27/22 release potassium chloride 10 mEq 10 meq BID 08/30/21 12/27/22 capsule,extended release cholecalciferol (vitamin D3) 250 2,000 mcg PO DAILY 12/04/21 12/27/22 mcg (10,000 unit) capsule Allergies Allergy/AdvReac Type Severity Reaction Status Date / Time diphenhydramine AdvReac Severe Palpitation Verified 12/27/22 10:27 [From Benadryl] s erythromycin base AdvReac Severe Palpitation Verified 12/27/22 10:28 s anything prolongs QT AdvReac Unknown Uncoded 12/27/22 10:16 Review of Systems Review of Systems: CONSTITUTIONAL: Denies body aches, fever, chills, or sweats. EYES: Denies visual changes, redness, or discharge. ENT: Denies rhinorrhea, sore throat.+ congestion, right ear pain, sinus pressure CARDIOVASCULAR: Denies chest pain, palpitations, or edema. RESPIRATORY: Denies dyspnea.+ cough GASTROINTESTINAL: Denies abdominal pain, nausea, vomiting, or diarrhea. GENITOURINARY: Denies dysuria or hematuria. SKIN: Denies rash, itching, or wounds. MUSCULOSKELETAL: Denies back pain, joint pain, or myalgia. NEUROLOGIC: Denies headache, numbness, tingling, or weakness. PSYCH: Denies depression or anxiety. [facility] Past Medical History Medical History GERD (gastroesophageal reflux disease) ICD (implantable cardioverter-defibrillator) battery depletion QT prolongation Thyroid cancer TMJ (dislocation of temporomandibular joint) Torsades de pointes Surgical History Surgical History History of appendectomy Hx of cholecystectomy Social History Social History Smoking status: Never smoker Alcohol intake: never Substance use: never Living arrangements: with family Gender identity (if verbalized by the patient): Female Spiritual care concerns: No Comments At time of signature, I have reviewed and agree with nursing past medical, surgical, social and family history unless otherwise noted. Please see nursing chart for further information. There is no relevant family history pertinent to the presenting complaint Exam Narrative: GENERAL: Well-appearing, well-nourished, and in no acute distress. HEAD: Normocephalic, atraumatic. EYES: EOMI. No redness or drainage. Conjunctivae normal. ENT: Mucous membranes pink and moist. Nares congested. Mucous membranes swollen with rhinorrhea. Left TM normal. Right TM with clear air-fluid line. Throat normal with small amount of postnasal drainage. Uvula midline. NECK: Normal AROM. Supple. No lymphadenopathy. CHEST: No respiratory distress. Clear to auscultation. Tight cough noted. HEART: Regular rate and rhythm. No murmur appreciated. Normal peripheral pulses. EXTREMITIES: Normal range of motion. No edema. SKIN: Warm, dry, no rash. Capillary refill normal. Normal skin turgor. NEURO: No focal deficits. Alert and oriented x3. Gait steady. PSYCH: Normal affect. No signs of depression or anxiety. Course Course Level of Care: Express Care Visit Vital Signs Vital signs: Vital Signs
== END 2022-12-27 10:40 | disposition home or self-care (01) ==
PROVIDERS: Emergency Provider Nurse Practitioner; PCP Family Medicine
DX: J30.2 Other seasonal allergic rhinitis (principal); J40 Bronchitis, not specified as acute or chronic; K21.9 Gastro-esophageal reflux disease without esophagitis; Z95.810 Presence of automatic (implantable) cardiac defibrillator; Z85.850 Personal history of malignant neoplasm of thyroid
CPT/HCPCS: 99213; G0463

== ENCOUNTER 2023-03-05 10:49 | Outpatient (CLI) | payer MEDICARE, OTHER, SELFPAY ==
--- NOTE | ~2023-03-05 | CT_ITS ---
Non-contrast Head CT History: Headache Technique: Axial non-contrast imaging of the brain was performed. Dose reduction technique was used on this scan by utilizing automated exposure control and iterative reconstruction technique. The dose -length product (DLP) was 605.33 mGy-cm. Findings: There is no evidence of intracranial hemorrhage, mass lesion, or acute infarct. Brain par enchyma appears normal. The ventricles and subarachnoid spaces are normal in size. The calvarium ap pears normal. The visualized paranasal sinuses and mastoid air cells are clear. Impression: No significant abnormality seen. Reviewed, dictated and finalized at location . Impression: No significant abnormality seen.
== END 2023-03-05 10:50 | disposition home or self-care (01) ==
PROVIDERS: PCP Family Medicine
DX: G44.89 Other headache syndrome (principal)
CPT/HCPCS: 70450

== ENCOUNTER 2023-05-13 19:08 | Emergency (ER) | payer MEDICARE, OTHER, SELFPAY ==
--- NOTE | 2023-05-13 19:11 | ED.URI ---
HPI - URI/Sore Throat General Chief Complaint: Upper Respiratory Infection Stated Complaint: Headache Time Seen by Provider: 05/13/23 19:10 Source: patient Mode of arrival: ambulatory Limitations: no limitations History of Present Illness HPI Narrative: Yasmine is a 68-year-old female patient presenting to the clinic today with complaints of a headache and nausea that just started around 230 today. She reports no history of high blood pressure and does not take any blood pressure medications currently. Blood pressure was 183/88 in the clinic initially-manual blood pressure was taken and was 182/102 in the left arm and then retaken again at patient's request and was 180/98 in the left arm. Patient denies any chest pain or shortness of breath. Reports headache behind the right eye and to the right occipital area. Denies any photosensitivity or aura-no history of migraine headaches MD elicited complaint: nasal congestion and other (Headache) Related Data Home Medications Medication Instructions Recorded Confirmed levothyroxine 100 mcg tablet 0.1 mcg DAILY 08/30/21 05/13/23 (Synthroid) omeprazole 20 mg capsule,delayed 20 mg BID 08/30/21 05/13/23 release potassium chloride 10 mEq 10 meq BID 08/30/21 05/13/23 capsule,extended release cholecalciferol (vitamin D3) 250 2,000 mcg PO DAILY 12/04/21 05/13/23 mcg (10,000 unit) capsule Allergies Allergy/AdvReac Type Severity Reaction Status Date / Time diphenhydramine AdvReac Severe Palpitation Verified 05/13/23 19:11 [From Benadryl] s erythromycin base AdvReac Severe Palpitation Verified 05/13/23 19:11 s anything prolongs QT AdvReac Unknown Uncoded 05/13/23 19:11 Review of Systems Review of Systems: Pertinent positives per HPI. Patient denies any fever, chills, rash, visual changes, dizziness, cough, shortness of breath, chest pain, palpitations, nausea, vomiting, diarrhea, constipation, abdominal pain, or any urinary issues. [facility] Past Medical History Medical History GERD (gastroesophageal reflux disease) ICD (implantable cardioverter-defibrillator) battery depletion QT prolongation Thyroid cancer TMJ (dislocation of temporomandibular joint) Torsades de pointes Surgical History Surgical History History of appendectomy Hx of cholecystectomy Social History Social History Smoking status: Never smoker Alcohol intake: never Substance use: never Living arrangements: with family Gender identity (if verbalized by the patient): Female Spiritual care concerns: No Comments At the time of my signature, I reviewed and agree with the nursing past medical, surgical, social, and family history. There is no relevant family history pertinent to the patient complaint. Exam Narrative: General: Well-developed, well nourished, in no apparent distress Head: Normocephalic, atraumatic. Pain behind the right eye and to the posterior right occipital area Cardio: Regular rate and rhythm, s1 and s2 normal, no murmur appreciated. Resp: Clear to auscultation bilaterally, no rhonchi, rales, wheezing or rubs. Extremities: No deformity, no edema, no cyanosis, capillary refill less than 2 seconds, peripheral pulses palpable and strong. Integumentary: [place], warm, and dry, intact without lesion, no rashes. Course Course Emergency Course: Portions of this record may have been created with voice recognition software. Level of Care: Express Care Visit Vital Signs Vital signs: Vital signs reviewed Transfer Transfered to: Dom Transportation: Other (Private car) Transfer rationale: Hypertension urgency-headache Accepting physician: Dr. Rodrigues Transfer comments: Transfer via private car. MDM - URI/Sore Throat MDM Narrative Medical decision making narrative: At the
[2023-05-13 19:17] VITALS: BP 183/88; PULSE 70; RESP 16; TEMP 36.4; O2SAT 100
[2023-05-13 19:30] VITALS: BP 182/102
[2023-05-13 19:45] VITALS: BP 180/98
[2023-05-13] MEDS: cloNIDine HCL 0.1 MG TABLET PO (19:45)
== END 2023-05-13 20:01 | disposition short-term general hospital (02) ==
PROVIDERS: Emergency Provider Nurse Practitioner Family; PCP Family Medicine
DX: I16.0 Hypertensive urgency (principal); K21.9 Gastro-esophageal reflux disease without esophagitis; Z85.850 Personal history of malignant neoplasm of thyroid
CPT/HCPCS: 99213; A9270; G0463

== ENCOUNTER 2023-05-13 20:00 | Emergency (ER) | payer MEDICARE, OTHER, SELFPAY ==
[2023-05-13 20:25] VITALS: BP 159/90; PULSE 75; RESP 16; TEMP 36.4; O2SAT 100
--- NOTE | 2023-05-13 20:29 | PC.NURSE ---
patient states that since her blood pressure is down she no longer wants to be seen. states will call md in am and left from waiting area
== END 2023-05-13 20:29 | disposition left against medical advice (07) ==
PROVIDERS: PCP Family Medicine
DX: R51.9 Headache, unspecified (principal)
CPT/HCPCS: 99199

== ENCOUNTER 2023-05-25 18:52 | Emergency (ER) | payer MEDICARE, OTHER, SELFPAY ==
[2023-05-25] VITALS (22 sets, daily range): BP systolic 143–182; BP diastolic 78–97; PULSE 60–74; RESP 9–22; TEMP 36.4; O2SAT 97–100
--- NOTE | ~2023-05-25 | XR_ITS ---
EXAMINATION: XR chest 1V portable DATE: 05/25/2023 20:24 INDICATION: Hypertension TECHNIQUE: frontal view of the chest was obtained. COMPARISON: Chest radiograph dated 09/20/2021 FINDINGS: The lungs remain clear with no focal airspace opacities, pulmonary edema, pleural effusion or pneumot horax. Heart size is normal. Dual lead pacemaker/AICD seen with leads projecting over the expected lo cations of the right atrium and right ventricle. Calcified mediastinal lymph nodes consistent with ol d granulomatous disease. IMPRESSION: 1. No acute cardiopulmonary disease. Reviewed, dictated and finalized at location A.
--- NOTE | 2023-05-25 19:55 | PC.NURSE ---
EDP at bedside to assess pt.
--- NOTE | 2023-05-25 19:59 | ED.GENADULT ---
HPI - General Adult General Chief complaint: Recheck/Abnormal Lab/Rx Stated complaint: blood pressure check Time Seen by Provider: 05/25/23 19:45 History of Present Illness HPI narrative: Patient presents the emergency department with concern for blood pressure. Patient does not normally take medication for her blood pressure. However she has had a couple headaches recently and blood pressure has been elevated at that time. She has been seen by her primary care provider and advised to take clonidine as needed for hypertension. She has been keeping track of her blood pressure and it has been 140s to 150s systolic. She woke up couple nights ago with a headache and it was 170 systolic. Prior to arrival today was elevated and increasingly worsened until she came to the emergency department where it was 166/95. Patient is slightly concerned about her thyroid function because she had thyroid cancer a few years ago. The 3-year anniversary of her 's is this weekend and she becomes tearful when discussing it. She is accompanied by her son who is very pleasant but does not contribute to her history. Patient is very nice and in no acute distress Related Data Home Medications Medication Instructions Recorded Confirmed levothyroxine 100 mcg tablet 0.1 mcg DAILY 08/30/21 05/13/23 (Synthroid) omeprazole 20 mg capsule,delayed 20 mg BID 08/30/21 05/13/23 release potassium chloride 10 mEq 10 meq BID 08/30/21 05/13/23 capsule,extended release cholecalciferol (vitamin D3) 250 2,000 mcg PO DAILY 12/04/21 05/13/23 mcg (10,000 unit) capsule Allergies Allergy/AdvReac Type Severity Reaction Status Date / Time diphenhydramine AdvReac Severe Palpitation Verified 05/25/23 19:56 [From Benadryl] s erythromycin base AdvReac Severe Palpitation Verified 05/25/23 19:56 s anything prolongs QT AdvReac Unknown Uncoded 05/25/23 19:56 Review of Systems Review of Systems: Review of systems negative except what is documented in the [facility] Past Medical History Medical History GERD (gastroesophageal reflux disease) ICD (implantable cardioverter-defibrillator) battery depletion QT prolongation Thyroid cancer TMJ (dislocation of temporomandibular joint) Torsades de pointes Surgical History Surgical History History of appendectomy Hx of cholecystectomy Social History Social History Smoking status: Never smoker Alcohol intake: never Substance use: never Living arrangements: with family Gender identity (if verbalized by the patient): Female Spiritual care concerns: No Course Course Emergency Course: Patient's blood pressure has been variable. She is concerned about it. Reassured. She is COVID-positive. Telemetry ordered due to hypertension to evaluate for dysrhythmias. Evaluated by myself. Rhythm NSR Rate 63 Vital Signs Vital signs: Vital Signs Temperature 36.4 C 05/25/23 18:56 Pulse Rate 74 05/25/23 18:56 Respiratory Rate 15 05/25/23 18:56 Blood Pressure 166/95 H 05/25/23 18:56 Pulse Oximetry 99 05/25/23 18:56 Temperature 36.4 C 05/25/23 18:56 Pulse Rate 63 05/25/23 23:00 Respiratory Rate 15 05/25/23 23:00 Blood Pressure 156/82 H 05/25/23 22:46 Pulse Oximetry 98 05/25/23 23:00 Medical Decision Making MDM Narrative Medical decision making narrative: Patient's labs ordered and reviewed. Troponin unremarkable. Mild hypocalcemia but additional electrolytes normal. Patient's blood pressure continues to be labile and elevated in the emergency department. She is very concerned about the number. I reassured her but she is very concerned. Will order home clonidine and advise following up with her primary care tomorrow just possibly start on low-dose antihypertensive medication.
--- NOTE | 2023-05-25 20:09 | ECG_ITS ---
Measurements Intervals Williams Rate: 63 P: 43 MA: 173 QRS: -22 QRSD: 93 T: 11 QT: 444 QTc: 456 Interpretive Statements SINUS RHYTHM DELAYED PRECORDIAL R/S TRANSITION VOLTAGE CRITERIA FOR LVH BASELINE WANDER- V4, V6 BORDERLINE ECG COMPARED TO ECG 10/29/2021 23:25:54 NO SIGNIFICANT CHANGES Electronically Signed On 05-26-2023 6:33:35 CDT by Cameron Rodrigues D.O.
[2023-05-25 20:30] LABS: Basophils Percent Auto 0.3 % (0.2-1.2); Eosinophils Absolute Auto 0.2 K/mm3 (0-0.3); Eosinophils Percent Auto 3.8 % (0-4.4); Hematocrit 37.4 % (37.0-47.0); Hemoglobin 12.4 g/dL (12.0-15.0); Immature Granulocyte Absolute 0.02 K/mm3 (0.00-0.031); Immature Granulocyte Percent A 0.3 % (0-0.5); Lymphocytes Percent Auto 19.9 % (18.3-44.2); Mean Corpuscular HGB Conc 33.2 g/dl (32-36); Mean Corpuscular Hemoglobin 29.9 pg (26-34); Mean Corpuscular Volume 90.1 fl (80-100); Mean Platelet Volume 11.2 fl (7.4-10.4); Monocytes Absolute Auto 0.4 K/mm3 (0.1-0.6); Monocytes Percent Auto 7.3 % (2.6-8.5); Neutrophils Absolute Auto 4.1 K/mm3 (1.3-6.7); Neutrophils Percent Auto 68.4 % (45.5-73.1); Platelet Count Result 177 k/mm3 (150-375); Red Blood Count 4.15 M/mm3 (4.2-5.4); Red Cell Distribution Width 12.8 % (11.5-14.5)
[2023-05-25 20:40] LABS: Alanine Aminotransferase 16 U/L (6-35); Albumin Level 3.9 g/dL (3.5-5.1); Alkaline Phosphatase 74 U/L (38-126); Anion Gap 7 mmol/L (8-16); Aspartate Amino Transferase 22 U/L (14-36); Bilirubin,Total 0.4 mg/dL (0.2-1.3); Blood Urea Nitrogen 18 mg/dL (7-17); Calcium 7.8 mg/dL (8.4-10.2); Carbon Dioxide 23 mmol/L (22-30); Chloride 108 mmol/L (98-107); Estimated CRCL calculation 56 ml/min; Estimated Glomerular Filt Rate > 60; Glucose 112 mg/dL (65-110); Potassium 3.4 mmol/L (3.4-5.0); Sodium 138 mmol/L (137-145)
[2023-05-25 21:05] LABS: Influenza A QL RT-PCR Negative (Negative); Influenza B QL RT-PCR Negative (Negative); SARS-CoV-2 RNA PCR Positive (Negative)
[2023-05-25 22:02] LABS: Magnesium 2.2 mg/dL (1.6-2.3)
[2023-05-25 22:15] LABS: Troponin I < 0.012 ng/mL (0.000-0.034)
--- NOTE | 2023-05-25 23:07 | PC.NURSE ---
Patient report given to Chantelle RN and Travis RN. All questions answered and care of patient transferred.
--- NOTE | 2023-05-25 23:10 | PC.NURSE ---
Assumed care of pt from ERIC Frye at this time.
[2023-05-25 23:39] LABS: Troponin I < 0.012 ng/mL (0.000-0.034)
[2023-05-26] MEDS: cloNIDine HCL 0.2 MG TABLET PO (00:08)
[2023-05-26 00:26] VITALS: BP 165/90; PULSE 70; RESP 16; O2SAT 98
== END 2023-05-26 00:33 | disposition home or self-care (01) ==
PROVIDERS: Emergency Provider Emergency Medicine; PCP Family Medicine
DX: U07.1 COVID-19 (principal); I10 Essential (primary) hypertension; E83.51 Hypocalcemia; Z85.850 Personal history of malignant neoplasm of thyroid; K21.9 Gastro-esophageal reflux disease without esophagitis; Z95.810 Presence of automatic (implantable) cardiac defibrillator
CPT/HCPCS: 36415; 71045; 80053; 83735; 84443; 84484; 85025; 87636; 93005; 99284; A9270

== ENCOUNTER 2023-06-02 14:02 | Outpatient (CLI) | payer MEDICARE, OTHER, SELFPAY ==
[2023-06-10 15:57] LABS: PRA 0.67 ng/mL/h (0.25-5.82)
== END 2023-06-02 14:03 | disposition home or self-care (01) ==
LOC: ANHLAB 14:05
PROVIDERS: PCP Family Medicine; Visit Provider Internal Medicine Cardiovascular Disease
DX: I10 Essential (primary) hypertension (principal); E87.6 Hypokalemia
CPT/HCPCS: 36415; 82088; 84244

== ENCOUNTER 2023-07-28 10:54 | Outpatient (CLI) | payer MEDICARE, OTHER, SELFPAY ==
--- NOTE | ~2023-07-28 | XR_ITS ---
EXAMINATION:XR cervical spine 4-5V DATE: 07/28/2023 11:56 INDICATION: Neck pain TECHNIQUE: AP, lateral, lateral swimmers and odontoid views of the cervical spine are provided. COMPARISON: None FINDINGS: There are 2 mm of anterolisthesis of C3 on C4 and 2 mm of retrolisthesis of C5 on C6. Align ment is otherwise normal. The odontoid process is intact. No fracture is identified. The vertebral jonah dy heights are maintained. There is mild loss of intervertebral disc space height at C5-6 and C6-7. S urgical clips in the neck are likely related to thyroidectomy. There is moderate uncovertebral joint osteoarthritis at C5-6 and C6-7. Prevertebral soft tissues are normal. IMPRESSION: 1. Mild cervical spondylosis without acute findings. Reviewed, dictated and finalized at location F. L [employer]
--- NOTE | ~2023-07-28 | XR_ITS ---
EXAMINATION: XR thoracic spine 2V DATE: 07/28/2023 11:56 INDICATION: Thoracic back pain TECHNIQUE: AP, lateral and lateral swimmer's views of the thoracic spine were obtained. COMPARISON: 07/22/2021 FINDINGS: Bone alignment is normal. There is no fracture. There is mild loss of intervertebral disc s pace height in the upper and midthoracic spine. The vertebral body heights are maintained. Small dege nerative osteophytes project from the anterior endplates of multiple vertebral bodies. Calcified medi astinal lymph nodes are consistent with old granulomatous disease. A dual-lead cardiac pacemaker of t he left chest wall ends with leads in expected locations. IMPRESSION: 1. Mild thoracic spondylosis without acute findings or significant interval change. Reviewed, dictated and finalized at location F. AISAL COORDINATOR IMPRESSION: 1. Mild thoracic spondylosis without acute findings or significant interval onesimo nge.
[2023-07-28 12:02] LABS: Hematocrit 41.9 % (37.0-47.0); Hemoglobin 13.2 g/dL (12.0-15.0); Mean Corpuscular HGB Conc 31.5 g/dl (32-36); Mean Corpuscular Hemoglobin 29.9 pg (26-34); Mean Corpuscular Volume 94.8 fl (80-100); Mean Platelet Volume 11.4 fl (7.4-10.4); Platelet Count Result 202 k/mm3 (150-375); Red Blood Count 4.42 M/mm3 (4.2-5.4); Red Cell Distribution Width 13.9 % (11.5-14.5); White Blood Count 6.9 K/mm3 (4.5-10.0)
[2023-07-28 12:12] LABS: Alanine Aminotransferase 17 U/L (6-35); Albumin Level 4.4 g/dL (3.5-5.1); Alkaline Phosphatase 82 U/L (38-126); Anion Gap 8 mmol/L (8-16); Aspartate Amino Transferase 23 U/L (14-36); Bilirubin,Total 0.8 mg/dL (0.2-1.3); Blood Urea Nitrogen 21 mg/dL (7-17); Calcium 8.5 mg/dL (8.4-10.2); Carbon Dioxide 28 mmol/L (22-30); Chloride 105 mmol/L (98-107); Estimated Glomerular Filt Rate > 60; Glucose 69 mg/dL (65-110); Lipase 165 U/L (23-300); Potassium 4.9 mmol/L (3.4-5.0); Sodium 141 mmol/L (137-145)
[2023-07-31 00:06] LABS: H pylori, Urea Breath NOT DETECTED (NOT DETECTED)
== END 2023-07-28 10:55 | disposition home or self-care (01) ==
PROVIDERS: PCP Family Medicine; Visit Provider Nurse Practitioner Family
DX: M54.2 Cervicalgia (principal); K21.9 Gastro-esophageal reflux disease without esophagitis; M43.02 Spondylolysis, cervical region; M43.04 Spondylolysis, thoracic region
CPT/HCPCS: 36415; 72050; 72070; 80053; 83013; 83690; 85027

== ENCOUNTER 2023-07-29 23:39 | Emergency (ER) | payer MEDICARE, OTHER, SELFPAY ==
--- NOTE | ~2023-07-29 | CT_ITS ---
EXAMINATION: CTA chest PE protocol DATE: 07/30/2023 01:16 INDICATION: Shortness of breath TECHNIQUE: Computed tomography angiography (CTA) of the chest was performed with 100 mL Omnipaque-350 intravenous contrast timed to evaluate the pulmonary arteries. Coronal maximum intensity projection 3D-reconstructions were created by the technologist. The dose-length product (DLP) was 274.51 mGy-cm. Automated exposure control and iterative reconstruction technique were employed. COMPARISON: None. FINDINGS: The pulmonary arteries are well-opacified. No pulmonary embolism is identified. The lungs a re free of acute opacities. No pleural effusion or pneumothorax. No pathologically enlarged thoracic lymph nodes are identified. The heart size is normal. Calcified right paratracheal lymph nodes are co nsistent with old granulomatous disease. Changes of cholecystectomy are noted. There is mild thoracic spondylosis. IMPRESSION: 1. No pulmonary embolism or acute cardiopulmonary abnormality. Reviewed, dictated and finalized at location F. RUPTCY PARALEGAL
--- NOTE | 2023-07-29 23:40 | ECG_ITS ---
Measurements Intervals [place] Rate: 73 P: 69 FL: 167 QRS: -18 QRSD: 90 T: 29 QT: 413 QTc: 456 Interpretive Statements SINUS RHYTHM POSSIBLE LEFT ATRIAL ENLARGEMENT CANNOT RULE OUT SEPTAL INFARCT, AGE INDETERMINATE BORDERLINE ST ABNORMALITY- LAT/HIGH LAT LEADS ABNORMAL ECG COMPARED TO ECG 05/25/2023 20:26:09 NO SIGNIFICANT CHANGES Electronically Signed On 07-30-2023 6:56:04 RN CLINICAL COORDINATOR by Cameron Rodrigues D.O.
[2023-07-29 23:41] VITALS: BP 173/94; PULSE 75; RESP 18; TEMP 37; O2SAT 100
[2023-07-30] VITALS (12 sets, daily range): BP systolic 164–186; BP diastolic 85–92; PULSE 66–82; RESP 14–17; O2SAT 92–100
--- NOTE | 2023-07-30 00:03 | ED.BACK ---
HPI - Back Pain/Injury General Chief Complaint: Back Pain/Injury Stated Complaint: back pain Time Seen by Provider: 07/29/23 23:52 History of Present Illness HPI Narrative: patient presents the emergency department from home. She has had mid back pain intermittent for the past few weeks. 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 Blood pressure has been under control. Tonight she became anxious associated with the back pain and her blood pressure continued to rise. Patient appears anxious on exam. Denies active chest pain Related Data Home Medications Medication Instructions Recorded Confirmed levothyroxine 100 mcg tablet 0.1 mcg DAILY 08/30/21 07/28/23 (Synthroid) potassium chloride 10 mEq 10 meq BID 08/30/21 07/28/23 capsule,extended release cholecalciferol (vitamin D3) 250 2,000 mcg PO DAILY 12/04/21 07/28/23 mcg (10,000 unit) capsule losartan 100 mg tablet 100 mg PO DAILY 07/28/23 07/28/23 Allergies Allergy/AdvReac Type Severity Reaction Status Date / Time diphenhydramine AdvReac Severe Palpitation Verified 07/28/23 09:59 [From Benadryl] s erythromycin base AdvReac Severe Palpitation Verified 07/28/23 09:59 s anything prolongs QT AdvReac Unknown Uncoded 07/28/23 09:59 Review of Systems Review of Systems: review of systems negative except what is documented in the [facility] Past Medical History Medical History (Updated 07/30/23 @ 03:37 by Claritza Moyer MD) Gastroesophageal reflux disease GERD (gastroesophageal reflux disease) ICD (implantable cardioverter-defibrillator) battery depletion Neck pain QT prolongation Thyroid cancer TMJ (dislocation of temporomandibular joint) Torsades de pointes Surgical History Surgical History History of appendectomy Hx of cholecystectomy Social History Social History Smoking status: Never smoker Alcohol intake: never Substance use: never Living arrangements: with family Gender identity (if verbalized by the patient): Female Spiritual care concerns: No Exam Narrative: GENERAL: Well-appearing, well-nourished, and in no acute distress. anxious HEAD: Normocephalic, atraumatic. EYES: PERRLA and EOMI. ENT: Nares clear, no rhinorrhea or epistaxis. Mucous membranes moist. NECK: Supple. CHEST: Clear to auscultation. No respiratory distress. HEART: Regular rate and rhythm. ABDOMEN: Soft, nontender, nondistended. EXTREMITIES: Normal range of motion. No edema. SKIN: Warm, dry, no rash. NEURO: No focal deficits. Alert and oriented x3. PSYCH: Normal mood and affect. Course Course Emergency Course: differential diagnosis includes but not limited to costochondritis, pleurisy, pulmonary embolism, pneumonia, dissection, CAD, anxiety EKG shows sinus rhythm with normal ST T waves. Rate 73 Telemetry ordered due to chest pain to evaluate for dysrhythmias. Evaluated by myself. Rhythm NS Rate 99 EKG ordered and reviewed by myself. almost identical to ekg aniket 05/31. Vital Signs Vital signs: Vital Signs Temperature 37.0 C 07/29/23 23:41 Pulse Rate 75 07/29/23 23:41 Respiratory Rate 18 07/29/23 23:41 Blood Pressure 173/94 H 07/29/23 23:41 Pulse Oximetry 100 07/29/23 23:41 Oxygen Delivery Room Air 07/29/23 23:41 Temperature 37.0 C 07/29/23 23:41 Pulse Rate 78 07/30/23 01:20 Respiratory Rate 17 07/30/23 00:02 Blood Pressure 184/86 H 07/30/23 01:20 Pulse Oximetry 100 07/30/23 01:20 Oxygen Delivery Room Air 07/29/23 23:41 MDM - Back Pain/Injury MDM Narrative Medical decision making narrative: CTA chest negative for acute pathology. Patient has been resting since her arrival. Initial repeat troponin negative. EKG no signs of acute ischemia. patient has been p
[2023-07-30 00:25] LABS: Basophils Percent Auto 0.5 % (0.2-1.2); Eosinophils Absolute Auto 0.2 K/mm3 (0-0.3); Eosinophils Percent Auto 1.9 % (0-4.4); Hematocrit 41.4 % (37.0-47.0); Hemoglobin 13.4 g/dL (12.0-15.0); Immature Granulocyte Absolute 0.02 K/mm3 (0.00-0.031); Immature Granulocyte Percent A 0.3 % (0-0.5); Lymphocytes Absolute Auto 1.43 K/mm3 (0.9-3.2); Lymphocytes Percent Auto 18.4 % (18.3-44.2); Mean Corpuscular HGB Conc 32.4 g/dl (32-36); Mean Corpuscular Hemoglobin 30.5 pg (26-34); Mean Corpuscular Volume 94.3 fl (80-100); Mean Platelet Volume 11.1 fl (7.4-10.4); Monocytes Absolute Auto 0.6 K/mm3 (0.1-0.6); Monocytes Percent Auto 7.5 % (2.6-8.5); Neutrophils Absolute Auto 5.6 K/mm3 (1.3-6.7); Neutrophils Percent Auto 71.4 % (45.5-73.1); Platelet Count Result 192 k/mm3 (150-375); Red Blood Count 4.39 M/mm3 (4.2-5.4); Red Cell Distribution Width 13.9 % (11.5-14.5); White Blood Count 7.8 K/mm3 (4.5-10.0)
[2023-07-30 00:31] LABS: Alanine Aminotransferase 18 U/L (6-35); Albumin Level 4.4 g/dL (3.5-5.1); Alkaline Phosphatase 79 U/L (38-126); Anion Gap 11 mmol/L (8-16); Aspartate Amino Transferase 27 U/L (14-36); Bilirubin,Total 0.6 mg/dL (0.2-1.3); Blood Urea Nitrogen 24 mg/dL (7-17); Calcium 8.3 mg/dL (8.4-10.2); Carbon Dioxide 25 mmol/L (22-30); Chloride 105 mmol/L (98-107); Estimated CRCL calculation 56 ml/min; Estimated Glomerular Filt Rate > 60; Glucose 107 mg/dL (65-110); Potassium 4.2 mmol/L (3.4-5.0); Sodium 141 mmol/L (137-145)
[2023-07-30 00:39] LABS: Troponin I < 0.012 ng/mL (0.000-0.034)
--- NOTE | 2023-07-30 01:07 | PC.NURSE ---
Patient stated she had to use the bathroom, and had an episode of diarrhea. Paper pants provided to patient.
[2023-07-30 03:23] LABS: Troponin I < 0.012 ng/mL (0.000-0.034)
[2023-07-30] MEDS: BELLADONNA ALK/PHENOB ELIX 10 ML, MAG HYDROX/ALUMINUM HYD/SIMETH 30 ML, LIDOCAINE HCL 2... PO (03:44)
== END 2023-07-30 04:06 | disposition home or self-care (01) ==
PROVIDERS: Physician Assistant; Emergency Provider Emergency Medicine; PCP Family Medicine
DX: M54.9 Dorsalgia, unspecified (principal); I10 Essential (primary) hypertension; K21.9 Gastro-esophageal reflux disease without esophagitis
CPT/HCPCS: 36415; 71275; 80053; 84484; 85025; 93005; 99284; A9270; Q9967

== ENCOUNTER 2023-09-04 08:00 | Outpatient (CLI) | payer MEDICARE, OTHER, SELFPAY ==
--- NOTE | ~2023-09-04 | XR_ITS ---
XR UGIAC w barium swallow DATE: 09/04/2023 09:20 INDICATION: Gastroesophageal reflux, epigastric burning, nausea TECHNIQUE: Air-contrast upper gastrointestinal series including rapid sequence spot images of the eso phagus during swallowing 2.2 minutes fluoroscopy time 33.5 Gycm2 total DAP 101 images COMPARISON: None FINDINGS: There is normal deglutition and esophageal peristalsis. No stricture, mucosal fold thickeni ng, erosion, ulceration or intraluminal mass lesion of the esophagus, stomach or duodenum is detected . The duodenal bulb is normally shaped, duodenal C-loop is normal. There is a small diverticulum of the second portion of the duodenum. Surgical clips at the gallbladder fossa, consistent with cholecystectomy. The proximal small bowel mucosal pattern appears normal. Left dual-lead pacemaker/defibrillator with leads overlying right atrium and right ventricle. IMPRESSION: Small diverticulum of second portion of duodenum No erosions or ulcerations, intraluminal mass lesion, hiatal hernia or gastroesophageal reflux Status post cholecystectomy Reviewed, dictated and finalized at Location [facility]. Reviewed, dictated and finalized at location A. SUPERVISOR IMPRESSION: Small diverticulum of second portion of duodenum No erosions or ulcerations, intraluminal mass lesion, hiatal hernia or gastroes ophageal reflux Status post cholecystectomy
== END 2023-09-04 08:01 | disposition home or self-care (01) ==
PROVIDERS: PCP Family Medicine; Visit Provider Nurse Practitioner Family
DX: K21.9 Gastro-esophageal reflux disease without esophagitis (principal); K57.10 Diverticulosis of small intestine without perforation or abscess without bleeding; Z90.49 Acquired absence of other specified parts of digestive tract
CPT/HCPCS: 74246

== ENCOUNTER 2023-10-28 17:34 | Emergency (ER) | payer MEDICARE, OTHER, SELFPAY ==
--- NOTE | 2023-10-28 17:41 | ED.GENADULT ---
HPI - General Adult General Chief complaint: Urogenital-Female Stated complaint: Urinary Problems Source: patient, RN notes reviewed and old records reviewed Mode of arrival: ambulatory Limitations: no limitations History of Present Illness HPI narrative: 68-year-old female presents to [facility] with complaints urinary frequency with suprapubic pain bilateral flank pain that started 1-2 days ago. Patient states gets frequent UTIs, and this is similar. Related Data Home Medications Medication Instructions Recorded Confirmed levothyroxine 100 mcg tablet 0.1 mcg DAILY 08/30/21 10/28/23 (Synthroid) potassium chloride 10 mEq 10 meq BID 08/30/21 10/28/23 capsule,extended release cholecalciferol (vitamin D3) 250 2,000 mcg PO DAILY 12/04/21 10/28/23 mcg (10,000 unit) capsule losartan 100 mg tablet 100 mg PO DAILY 07/28/23 10/28/23 meclizine 25 mg tablet 25 mg PO PRN Nausea 10/28/23 10/28/23 Allergies Allergy/AdvReac Type Severity Reaction Status Date / Time diphenhydramine AdvReac Severe Palpitation Verified 10/28/23 17:47 [From Benadryl] s erythromycin base AdvReac Severe Palpitation Verified 10/28/23 17:47 s anything prolongs QT AdvReac Unknown Uncoded 10/28/23 17:47 Review of Systems Constitutional: Constitutional: Reports no additional constitutional complaints, Denies body ache(s), Denies chills, Denies fatigue, Denies fever(s) and Denies headache(s) Eyes: Eyes: Reports no additional eye complaints and Denies blurry vision ENT: Reports system reviewed and no additional complaints, except as documented, Denies vertigo, Denies dizziness, Denies ear discharge, Denies otalgia, Denies facial pain, Denies headache(s), Denies nasal congestion, Denies nasal discharge, Denies sinus pain, Denies sinus pressure and Denies sore throat Cardiovascular: Cardiovascular: Reports no additional cardiovascular complaints, Denies chest pain, Denies chest pain at rest, Denies rapid heart rate and Denies dyspnea Respiratory: Respiratory: Reports no additional respiratory complaints, Denies chest congestion, Denies cough, Denies pain on inspiration, Denies pain with cough and Denies dyspnea Gastrointestinal: Gastrointestinal: Reports abdominal pain, Denies diarrhea, Denies nausea and Denies vomiting Genitourinary: Genitourinary: Reports nocturia, Denies dysuria, Reports flank pain, Denies urinary incontinence, Denies urinary hesitancy, Denies urinary urgency and Denies vaginal discharge Integumentary/Breasts: Skin/Breast: Denies rash Neurologic: Reports system reviewed and no additional complaints, except as documented, Denies vertigo, Denies dizziness and Denies headache(s) Endocrine: Endocrine: Denies fatigue PMFSH Past Medical History Medical History Gastroesophageal reflux disease GERD (gastroesophageal reflux disease) ICD (implantable cardioverter-defibrillator) battery depletion Neck pain QT prolongation Thyroid cancer TMJ (dislocation of temporomandibular joint) Torsades de pointes Surgical History Surgical History History of appendectomy Hx of cholecystectomy Social History Social History Smoking status: Never smoker Alcohol intake: never Substance use: never Living arrangements: with family Gender identity (if verbalized by the patient): Female Spiritual care concerns: No Comments At the time of my signature, I reviewed and agree with the nursing past medical, surgical, social, and family history. There is no relevant family history pertinent to the patient complaint. Exam Const: General: cooperative, healthy appearing, no acute distress and well nourished Nutritional Appearance: well nourished Orientation/consciousness: patient oriented x3 Limitations: no limitations HENMT: Head: normal to inspection and normocephal
[2023-10-28 17:50] VITALS: BP 148/83; PULSE 72; RESP 16; TEMP 36.7; O2SAT 100
== END 2023-10-28 18:01 | disposition home or self-care (01) ==
PROVIDERS: Emergency Provider Registered Nurse; PCP Family Medicine
DX: R35.89 Other polyuria (principal); K21.9 Gastro-esophageal reflux disease without esophagitis; Z95.810 Presence of automatic (implantable) cardiac defibrillator; Z85.850 Personal history of malignant neoplasm of thyroid
CPT/HCPCS: 81003; 87086; 99213; G0463

== ENCOUNTER 2023-10-30 12:55 | Emergency (ER) | payer MEDICARE, OTHER, SELFPAY ==
[2023-10-30 12:57] VITALS: BP 177/70; PULSE 87; RESP 20; TEMP 36.3; O2SAT 100
[2023-10-30 14:50] VITALS: BP 156/98; PULSE 75; RESP 16; O2SAT 98
[2023-10-30 14:50] LABS: Basophils Percent Auto 0.5 % (0.2-1.2); Eosinophils Absolute Auto 0.1 K/mm3 (0-0.3); Eosinophils Percent Auto 0.8 % (0-4.4); Hematocrit 40.4 % (37.0-47.0); Hemoglobin 13.1 g/dL (12.0-15.0); Immature Granulocyte Absolute 0.04 K/mm3 (0.00-0.031); Immature Granulocyte Percent A 0.6 % (0-0.5); Lymphocytes Absolute Auto 0.98 K/mm3 (0.9-3.2); Lymphocytes Percent Auto 15.1 % (18.3-44.2); Mean Corpuscular HGB Conc 32.4 g/dl (32-36); Mean Corpuscular Hemoglobin 29.8 pg (26-34); Mean Corpuscular Volume 91.8 fl (80-100); Mean Platelet Volume 10.5 fl (7.4-10.4); Monocytes Absolute Auto 0.4 K/mm3 (0.1-0.6); Monocytes Percent Auto 6.2 % (2.6-8.5); Neutrophils Percent Auto 76.8 % (45.5-73.1); Platelet Count Result 206 k/mm3 (150-375); Red Cell Distribution Width 12.6 % (11.5-14.5); White Blood Count 6.5 K/mm3 (4.5-10.0)
[2023-10-30 15:01] LABS: Alanine Aminotransferase 30 U/L (6-35); Albumin Level 4.3 g/dL (3.5-5.1); Alkaline Phosphatase 100 U/L (38-126); Anion Gap 7 mmol/L (8-16); Aspartate Amino Transferase 31 U/L (14-36); Bilirubin,Total 0.7 mg/dL (0.2-1.3); Blood Urea Nitrogen 18 mg/dL (7-17); CRP < 0.5 mg/dL (<1.0); Calcium 8.9 mg/dL (8.4-10.2); Carbon Dioxide 26 mmol/L (22-30); Chloride 106 mmol/L (98-107); Estimated CRCL calculation 54 ml/min; Estimated Glomerular Filt Rate > 60; Glucose 111 mg/dL (65-110); Potassium 3.8 mmol/L (3.4-5.0); Sodium 139 mmol/L (137-145)
[2023-10-30 15:36] LABS: Erythrocyte Sedimentation Rate 18 mm/hr (0-20)
--- NOTE | 2023-10-30 16:22 | ED.GENADULT ---
HPI - General Adult General Chief complaint: Extremity Problem,Nontraumatic Stated complaint: feet Time Seen by Provider: 10/30/23 14:06 History of Present Illness HPI narrative: Patient is a 68-year-old female who presents ER with pain to her toes. Ongoing intermittently over last days. It been preceded by pain in her elbow and hands. She is going to the [facility] while months make sure there was not something more serious occurring. Denies trauma. Denies any redness. No fevers. She reports she she recently underwent vaccinations in last 6 weeks and was concerned that she had Guillain-[place] syndrome. She has no weakness. Related Data Home Medications Medication Instructions Recorded Confirmed levothyroxine 100 mcg tablet 0.1 mcg DAILY 08/30/21 10/28/23 (Synthroid) potassium chloride 10 mEq 10 meq BID 08/30/21 10/28/23 capsule,extended release cholecalciferol (vitamin D3) 250 2,000 mcg PO DAILY 12/04/21 10/28/23 mcg (10,000 unit) capsule losartan 100 mg tablet 100 mg PO DAILY 07/28/23 10/28/23 meclizine 25 mg tablet 25 mg PO PRN Nausea 10/28/23 10/28/23 Allergies Allergy/AdvReac Type Severity Reaction Status Date / Time diphenhydramine AdvReac Severe Palpitation Verified 10/30/23 14:45 [From Benadryl] s erythromycin base AdvReac Severe Palpitation Verified 10/30/23 14:45 s anything prolongs QT AdvReac Unknown Uncoded 10/30/23 14:45 Review of Systems Constitutional: Constitutional: Reports no additional constitutional complaints ENT: Reports system reviewed and no additional complaints, except as documented Cardiovascular: Cardiovascular: Reports no additional cardiovascular complaints Respiratory: Respiratory: Reports no additional respiratory complaints Musculoskeletal: Musculoskeletal: Denies myalgias, Reports arthralgias and Denies muscle cramps Comments: Pain in the toes PMFSH Past Medical History Medical History Gastroesophageal reflux disease GERD (gastroesophageal reflux disease) ICD (implantable cardioverter-defibrillator) battery depletion Neck pain QT prolongation Thyroid cancer TMJ (dislocation of temporomandibular joint) Torsades de pointes Surgical History Surgical History History of appendectomy Hx of cholecystectomy Social History Social History Smoking status: Never smoker Alcohol intake: never Substance use: never Living arrangements: with family Gender identity (if verbalized by the patient): Female Spiritual care concerns: No Exam Narrative: GENERAL: Well-appearing, well-nourished, and in no acute distress. HEAD: Normocephalic, atraumatic. CHEST: Clear to auscultation. No respiratory distress. HEART: Regular rate and rhythm. Normal peripheral pulses. EXTREMITIES: Normal range of motion. No edema. toes without tenderness to palpation. No deformity. SKIN: Warm, dry . Feet bilaterally have flaky skin to the soles. No cracks between the toes. NEURO: Alert and oriented x3. PSYCH: Normal mood and affect. Course Course Emergency Course: Symptoms resolved during workup. Discussed that given the flaking discomfort to the toe she could have athlete's foot and will prescribe clotrimazole. I did not feel she has Guillain-[place] syndrome as there is weakness the feet. Vital Signs Vital signs: Vital Signs Temperature 97.3 F L 10/30/23 12:57 Pulse Rate 87 10/30/23 12:57 Respiratory Rate 20 10/30/23 12:57 Blood Pressure 177/70 H 10/30/23 12:57 Pulse Oximetry 100 10/30/23 12:57 Oxygen Delivery Room Air 10/30/23 12:57 Temperature 97.3 F L 10/30/23 12:57 Pulse Rate 75 10/30/23 14:50 Respiratory Rate 16 10/30/23 14:50 Blood Pressure 156/98 H 10/30/23 14:50 Pulse Oximetry 98 10/30/23 14:50 Oxygen Delivery Room Air 0
== END 2023-10-30 16:35 | disposition home or self-care (01) ==
PROVIDERS: Emergency Provider Emergency Medicine; PCP Family Medicine
DX: B35.3 Tinea pedis (principal); K21.9 Gastro-esophageal reflux disease without esophagitis; Z85.850 Personal history of malignant neoplasm of thyroid; Z90.49 Acquired absence of other specified parts of digestive tract
CPT/HCPCS: 36415; 80053; 85025; 85652; 86140; 99283

== ENCOUNTER 2024-01-02 13:44 | Emergency (ER) | payer MEDICARE, OTHER, SELFPAY ==
[2024-01-02 14:02] VITALS: BP 154/85; PULSE 100; RESP 16; TEMP 36.3; O2SAT 100
[2024-01-02 14:06] VITALS: BP 154/85; PULSE 100; RESP 16; TEMP 36.3; O2SAT 100
--- NOTE | 2024-01-02 14:06 | ED.FEMALEGU ---
HPI - Female Genitourinary General Chief complaint: Urogenital-Female Stated complaint: Urinary Problems Source: patient and RN notes reviewed Mode of arrival: ambulatory Limitations: no limitations History of Present Illness HPI Narrative: 68-year-old female presented for complaint of burning with urination over the past few days. Reports a history of chronic stress incontinence. Endorses most recent UTI 10/28/2023. Denies hematuria, nausea, vomiting, abdominal pain, flank pain, constipation, diarrhea, fevers or chills. Related Data Home Medications Medication Instructions Recorded Confirmed levothyroxine 100 mcg tablet 0.1 mcg DAILY 08/30/21 10/28/23 (Synthroid) potassium chloride 10 mEq 10 meq BID 08/30/21 10/28/23 capsule,extended release cholecalciferol (vitamin D3) 250 2,000 mcg PO DAILY 12/04/21 10/28/23 mcg (10,000 unit) capsule losartan 100 mg tablet 75 mg PO DAILY 07/28/23 10/28/23 meclizine 25 mg tablet 25 mg PO DIRECTED Nausea 10/28/23 10/28/23 cyanocobalamin (vitamin B-12) 50 50 mcg PO DAILY 01/02/24 01/02/24 mcg tablet dicyclomine 10 mg capsule 10 mg PO TID abdominal discomfort 01/02/24 omeprazole 20 mg capsule,delayed mg 01/02/24 01/02/24 release Allergies Allergy/AdvReac Type Severity Reaction Status Date / Time diphenhydramine AdvReac Severe Palpitation Verified 01/02/24 14:04 [From Benadryl] s erythromycin base AdvReac Severe Palpitation Verified 01/02/24 14:04 s anything prolongs QT AdvReac Unknown Uncoded 10/30/23 14:45 Review of Systems Review of Systems: CONSTITUTIONAL: Denies body aches, fever, chills, or sweats. CARDIOVASCULAR: Denies chest pain, palpitations, or edema. RESPIRATORY: Denies cough or dyspnea. GASTROINTESTINAL: Denies abdominal pain, nausea, vomiting, or diarrhea. GENITOURINARY: Reports dysuria, frequency, urgency, denies hematuria, flank pain SKIN: Denies rash, itching, or wounds. MUSCULOSKELETAL: Denies back pain or myalgia. [facility] Past Medical History Medical History Gastroesophageal reflux disease GERD (gastroesophageal reflux disease) ICD (implantable cardioverter-defibrillator) battery depletion Neck pain QT prolongation Thyroid cancer TMJ (dislocation of temporomandibular joint) Torsades de pointes Surgical History Surgical History History of appendectomy Hx of cholecystectomy Social History Social History Smoking status: Never smoker Alcohol intake: never Substance use: never Living arrangements: with family Gender identity (if verbalized by the patient): Female Spiritual care concerns: No Comments At time of signature, I have reviewed and agree with nursing past medical, surgical, social and family history unless otherwise noted. Please see nursing chart for further information. There is no relevant family history pertinent to the presenting complaint Exam Narrative: GENERAL: Well-appearing ENT: Mucous membranes pink and moist. NECK: Normal AROM. Supple. CHEST: No respiratory distress. Clear to auscultation. HEART: Regular rate and rhythm. ABDOMEN: Soft, nontender, nondistended, normal active bowel sounds. No CVA tenderness SKIN: Warm, dry, no rash. NEURO: No focal deficits. Alert and oriented x3. Gait steady. PSYCH: Normal affect. Course Course Emergency Course: Patient is aware of diagnosis, understands and agrees to treatment plan. Anticipatory guidance given. Patient agrees to follow-up as directed and is aware of reasons to seek care at the emergency department. Portions of this record may have been created with voice recognition software Level of Care: Express Care Visit Vital Signs Vital signs: Vital Signs Temperature 97.3 F L 01/02/24 14:02 Pulse Rate 100 01/02/24 14:02 Respiratory Rate 16 04
== END 2024-01-02 14:18 | disposition home or self-care (01) ==
PROVIDERS: Emergency Provider Nurse Practitioner Family; PCP Family Medicine
DX: N39.0 Urinary tract infection, site not specified (principal); K21.9 Gastro-esophageal reflux disease without esophagitis; Z95.810 Presence of automatic (implantable) cardiac defibrillator; Z85.850 Personal history of malignant neoplasm of thyroid
CPT/HCPCS: 81003; 87086; 87088; 99213; G0463

== ENCOUNTER 2024-04-02 09:54 | Emergency (ER) | payer MEDICARE, OTHER, SELFPAY ==
--- NOTE | ~2024-04-02 | CT_ITS ---
EXAMINATION: CT abdomen pelvis w con DATE: 04/02/2024 11:17 INDICATION: Colitis. Abdomen pain. TECHNIQUE: Computed tomography (CT) of the abdomen and pelvis was performed without intravenous contr ast. The dose-length product was 500.43 mGy-cm. Automated exposure control and iterative reconstructi on technique were employed. COMPARISON: CT dated 10/30/2021. FINDINGS: Heart size normal. No significant pleural or pericardial effusion. Fatty infiltration of th e liver. Status post cholecystectomy. There are calcified granulomas of the spleen. The pancreas, adr enal glands and left kidney are unremarkable. There is a 7.5 cm right renal cyst. Nonobstructive bob l gas pattern. No free air or free fluid. There is moderate spondylosis at L5-S1. There is a hemangio ma of L3. Additionally, there is a sclerotic lesion of L3, likely benign bone island. No significant vascular abnormality. No lymphadenopathy. No free air or free fluid. IMPRESSION: 1. No acute abdominal abnormality. Reviewed, dictated and finalized at location B.
[2024-04-02 10:00] VITALS: BP 119/80; PULSE 84; RESP 15; TEMP 36.9; O2SAT 98
[2024-04-02 10:31] LABS: Basophils Percent Auto 0.8 % (0.2-1.2); Eosinophils Absolute Auto 0.2 K/mm3 (0-0.3); Eosinophils Percent Auto 4.3 % (0-4.4); Hematocrit 42.4 % (37.0-47.0); Hemoglobin 14.2 g/dL (12.0-15.0); Immature Granulocyte Absolute 0.01 K/mm3 (0.00-0.031); Immature Granulocyte Percent A 0.2 % (0-0.5); Lymphocytes Absolute Auto 1.23 K/mm3 (0.9-3.2); Lymphocytes Percent Auto 24.2 % (18.3-44.2); Mean Corpuscular HGB Conc 33.5 g/dl (32-36); Mean Corpuscular Hemoglobin 31.1 pg (26-34); Mean Corpuscular Volume 92.8 fl (80-100); Monocytes Absolute Auto 0.4 K/mm3 (0.1-0.6); Monocytes Percent Auto 8.3 % (2.6-8.5); Neutrophils Absolute Auto 3.2 K/mm3 (1.3-6.7); Neutrophils Percent Auto 62.2 % (45.5-73.1); Platelet Count Result 190 k/mm3 (150-375); Red Blood Count 4.57 M/mm3 (4.2-5.4); Red Cell Distribution Width 12.4 % (11.5-14.5); White Blood Count 5.1 K/mm3 (4.5-10.0)
[2024-04-02 10:45] LABS: Lactic Acid Reflex 1.3 mmol/L (0.7-2.0)
[2024-04-02 10:46] LABS: Alanine Aminotransferase 14 U/L (6-35); Albumin Level 4.6 g/dL (3.5-5.1); Alkaline Phosphatase 61 U/L (38-126); Anion Gap 13 mmol/L (4-12); Aspartate Amino Transferase 23 U/L (14-36); Bilirubin,Total 0.6 mg/dL (0.2-1.3); Blood Urea Nitrogen 18 mg/dL (7-17); Calcium 8.5 mg/dL (8.4-10.2); Carbon Dioxide 24 mmol/L (22-30); Chloride 105 mmol/L (98-107); Estimated CRCL calculation 55 ml/min; Estimated Glomerular Filt Rate > 60; Glucose 104 mg/dL (65-110); Lipase 148 U/L (23-300); Potassium 3.7 mmol/L (3.4-5.0); Sodium 142 mmol/L (137-145)
--- NOTE | 2024-04-02 10:49 | ED.ABDPAIN ---
HPI - Abdominal Pain General Chief Complaint: Abdominal Pain Stated Complaint: abd pain Time Seen by Provider: 04/02/24 10:00 Source: patient Mode of arrival: ambulatory Limitations: no limitations History of Present Illness HPI narrative: Patient is a 69-year-old female who presents the ED with report of bright red rectal bleeding. Patient reports she has had intermittent abdominal pain over the last 2 weeks. She has been seeing her primary care doctor for this. She had an outpatient CT scan performed which showed colitis. She was started on Augmentin 3 days ago and has been taking this as prescribed. States symptoms have improved, pain was nearly resolved yesterday. She does note that she was constipated for the last 2 days. She was taking Dulcolax and Colace at home and had a bowel movement this morning, which was nonpainful. She did not have to strain. She did notice some bright red blood mixed in with the stool as well as with wiping. She then prompted here for further evaluation. She denies significant abdominal pain currently, nausea, vomiting, fevers. She does note history of internal hemorrhoid, but states she has never had issues with it before. Patient is not on any anticoagulation. Related Data Home Medications Medication Instructions Recorded Confirmed levothyroxine 100 mcg tablet 0.1 mcg DAILY 08/30/21 10/28/23 (Synthroid) potassium chloride 10 mEq 10 meq BID 08/30/21 10/28/23 capsule,extended release cholecalciferol (vitamin D3) 250 2,000 mcg PO DAILY 12/04/21 10/28/23 mcg (10,000 unit) capsule losartan 100 mg tablet 75 mg PO DAILY 07/28/23 10/28/23 meclizine 25 mg tablet 25 mg PO DIRECTED Nausea 10/28/23 10/28/23 cyanocobalamin (vitamin B-12) 50 50 mcg PO DAILY 01/02/24 01/02/24 mcg tablet dicyclomine 10 mg capsule 10 mg PO TID abdominal discomfort 01/02/24 omeprazole 20 mg capsule,delayed mg 01/02/24 01/02/24 release Allergies Allergy/AdvReac Type Severity Reaction Status Date / Time diphenhydramine AdvReac Severe Palpitation Verified 04/02/24 10:22 [From Benadryl] s erythromycin base AdvReac Severe Palpitation Verified 04/02/24 10:22 s anything prolongs QT AdvReac Unknown Uncoded 04/02/24 10:22 Review of Systems Review of Systems: CONSTITUTIONAL: Denies fever, chills, or sweats. GASTROINTESTINAL: See HPI. GENITOURINARY: Denies dysuria or hematuria. MUSCULOSKELETAL: Denies back pain, extremity pain, myalgia. All systems reviewed & are unremarkable except as noted in HPI and below PMFSH Past Medical History Medical History Gastroesophageal reflux disease GERD (gastroesophageal reflux disease) ICD (implantable cardioverter-defibrillator) battery depletion Neck pain QT prolongation Thyroid cancer TMJ (dislocation of temporomandibular joint) Torsades de pointes Surgical History Surgical History History of appendectomy Hx of cholecystectomy Social History Social History Smoking status: Never smoker Alcohol intake: never Substance use: never Living arrangements: with family Gender identity (if verbalized by the patient): Female Spiritual care concerns: No Exam Narrative: GENERAL: Well appearing, well-nourished, non-toxic, in no acute distress. HEAD: Normocephalic, atraumatic. RESPIRATORY: Airway patent, respirations nonlabored. Clear to auscultation bilaterally, no rales, rhonchi, wheezing. CARDIOVASCULAR: Regular rate and rhythm ABDOMINAL: Soft, no significant tenderness throughout abdomen, nondistended. Normoactive BS. RECTAL: Normal external rectal exam. No external hemorrhoids. Normal rectal tone. Stool brown, guaiac negative. No palpable internal hemorrhoids. MUSCULOSKELETAL: Moves all extremities. No gross deformities. SKIN: Warm, dry, normal color.
[2024-04-02 11:05] LABS: Appearance Urine Clear (Clear); Bilirubin Urine Negative (Negative); Blood Urine Negative (Negative); Color Urine Yellow (Yellow); Glucose Urine UA Negative (Negative); Ketones Urine Negative (Negative); Leukocyte Esterase Ur Negative LEU/UL (Negative); Nitrate Urine Negative (Negative); Protein Urine Negative (Negative); Specific Grav Ur 1.015 (1.001-1.035); Urobilinogen Urine 0.2 mg/dL (<2.0); pH Urine 5.5 (5.0-9.0)
[2024-04-02 11:08] LABS: Add Urine Microscopic? NO
[2024-04-02 11:17] VITALS: BP 149/87; PULSE 74; RESP 14; O2SAT 100
[2024-04-02 13:23] VITALS: BP 124/80; PULSE 75; RESP 14; O2SAT 100
== END 2024-04-02 13:25 | disposition home or self-care (01) ==
PROVIDERS: Emergency Provider Physician Assistant; PCP Family Medicine
DX: K62.5 Hemorrhage of anus and rectum (principal); K52.9 Noninfective gastroenteritis and colitis, unspecified; K21.9 Gastro-esophageal reflux disease without esophagitis; Z85.850 Personal history of malignant neoplasm of thyroid; Z90.49 Acquired absence of other specified parts of digestive tract
CPT/HCPCS: 36415; 74177; 80053; 81003; 83605; 83690; 85025; 86850; 86900; 86901; 99284; Q9967

== ENCOUNTER 2024-04-08 10:59 | Outpatient (CLI) | payer MEDICARE, OTHER, SELFPAY ==
[2024-04-15 20:24] LABS: Calprotectin, Stool 66 mcg/g
== END 2024-04-08 11:00 | disposition home or self-care (01) ==
LOC: ANHLAB 10:59
PROVIDERS: PCP Family Medicine; Visit Provider Nurse Practitioner Family
DX: R93.3 Abnormal findings on diagnostic imaging of other parts of digestive tract (principal)
CPT/HCPCS: 83993

== ENCOUNTER 2024-04-22 08:23 | Outpatient (CLI) | payer MEDICARE, OTHER, SELFPAY ==
--- NOTE | ~2024-04-22 | US_ITS ---
EXAMINATION: US abdomen limited DATE: 04/22/2024 09:10 INDICATION: Gallstones. TECHNIQUE: Multiple grayscale and Doppler ultrasound images of the abdomen were obtained. COMPARISON: CT abdomen and pelvis 04/02/2024 FINDINGS: The visualized portions of the head and body of the pancreas are normal. There is diffuse h epatic steatosis. There is normal flow in main portal vein. The gallbladder is absent. There are ston es in the cystic duct. The common duct is normal and measures 6 mm. IMPRESSION: 1. Diffuse hepatic steatosis. 2. Cholecystectomy. Cystic duct stones again seen. Reviewed, dictated and finalized at location A.
== END 2024-04-22 08:24 | disposition home or self-care (01) ==
PROVIDERS: PCP Family Medicine; Visit Provider Nurse Practitioner Family
DX: R93.2 Abnormal findings on diagnostic imaging of liver and biliary tract (principal); K76.0 Fatty (change of) liver, not elsewhere classified
CPT/HCPCS: 76705

== ENCOUNTER 2024-04-27 11:10 | Outpatient (CLI) | payer MEDICARE, OTHER, SELFPAY ==
--- NOTE | ~2024-04-27 | US_ITS ---
EXAMINATION: US renal BI DATE: 04/27/2024 11:37 INDICATION: Renal cysts TECHNIQUE: Multiple ultrasound grayscale images of the kidneys were obtained. COMPARISON: CT dated 04/02/2024 FINDINGS: The right kidney measures 9.8 x 3.8 x 3.3, exclusive of a 9.0 x 5.7 x 7.2 cm exophytic cyst arising f rom the lower pole. The left kidney measures 9.2 x 2.6 x 5.2 cm. The kidneys demonstrate normal echog enicity. There is no hydronephrosis in either kidney. No stones identified. The bladder is normal. IMPRESSION: 1. 9.0 cm simple appearing exophytic right renal cyst. Otherwise normal kidneys with no hydronephros is. Reviewed, dictated and finalized at location A. IMPRESSION: 1. 9.0 cm simple appearing exophytic right renal cyst. Otherwise normal kidney s with no hydronephrosis.
== END 2024-04-27 11:11 ==
LOC: GOSHIMG 11:12
PROVIDERS: PCP Family Medicine; Visit Provider Urology
DX: N28.1 Cyst of kidney, acquired (principal)
CPT/HCPCS: 76775

== ENCOUNTER 2024-07-06 09:01 | Outpatient (CLI) | payer MEDICARE, OTHER, SELFPAY ==
[2024-07-06] VITALS (10 sets, daily range): BP systolic 123–153; BP diastolic 73–89; PULSE 60–75; RESP 16–18; O2SAT 98–100
--- NOTE | ~2024-07-06 | US_ITS ---
CORRECTED REPORT corrected examination description to US guide asp renal cyst RT [facility] 07/12/24 This report was recreated on 07/12/24. Original report was INATION: US guide asp renal cyst RT DATE: 07/06/2024 11:27 INDICATION: Right renal cyst TECHNIQUE: The procedure and its risks and benefits were discussed with the patient. Potential risks discussed included bleeding and infection. The skin was prepped and draped in sterile fashion. 1% lidocaine was used for local anesthesia. Under ultrasound guidance, a 5 Fr catheter with trochar was advanced into the cyst at the lower pole of the right kidney. Fluid was aspirated until the cyst was completely decompressed. The catheter was removed, and a dressing was applied. There were no immediate complications. FINDINGS: Ultrasound images demonstrate an 8.6 x 5.9 x 7.6 cm anechoic cyst at the lower pole of the right kidney with catheter within the cyst. 240 mL of clear yellow fluid was aspirated from the cyst. Final images demonstrate residual cortical defect at the site of the now completely decompressed cyst at the lower pole of the right kidney. IMPRESSION: 1. Successful ultrasound-guided aspiration of an 8.6 cm cyst at the lower pole of the right kidney. Reviewed, dictated and finalized at location A. MTDD
[2024-07-06 09:35] LABS: Mean Platelet Volume 10.4 fl (7.4-10.4); Platelet Count Result 195 k/mm3 (150-375)
== END 2024-07-06 15:00 | disposition home or self-care (01) ==
PROVIDERS: Radiology Diagnostic Radiology; PCP Family Medicine; Visit Provider Urology
PROC: (CPT 76942; principal; 2024-07-06 10:30)
DX: N28.1 Cyst of kidney, acquired (principal)
CPT/HCPCS: 10160; 36415; 50390; 76942; 85049; 85610; C1729

== ENCOUNTER 2024-07-31 14:48 | Emergency (ER) | payer MEDICARE, OTHER, SELFPAY ==
--- NOTE | 2024-07-31 14:52 | ED_ITS ---
HPI - Female Genitourinary General Chief complaint: Urogenital-Female Stated complaint: uti symptoms Time Seen by Provider: 07/31/24 14:59 Source: patient, RN notes reviewed and old records reviewed Mode of arrival: ambulatory Limitations: no limitations History of Present Illness HPI Narrative: 69-year-old female presents to the [facility] with concerns for a UTI. Reports this morning started with frequency, urgency and burning with urination. Just noticed blood on her urine when she urinated. A couple weeks ago did have surgery on a kidney. Is scheduled on Friday for a CT scan for continued discomfort. Denies any new back pain, abdominal pain. Denies fevers. Related Data Home Medications Medication Instructions Recorded Confirmed levothyroxine 100 mcg tablet 0.1 mcg DAILY 08/30/21 07/31/24 (Synthroid) potassium chloride 10 mEq 10 meq BID 08/30/21 07/31/24 capsule,extended release cholecalciferol (vitamin D3) 250 2,000 mcg PO DAILY 12/04/21 07/31/24 mcg (10,000 unit) capsule meclizine 25 mg tablet 25 mg PO DIRECTED Nausea 10/28/23 07/31/24 cyanocobalamin (vitamin B-12) 50 50 mcg PO DAILY 01/02/24 07/31/24 mcg tablet omeprazole 20 mg capsule,delayed 20 mg DAILY 01/02/24 07/31/24 release losartan 100 mg tablet 50 mg PO BID 06/25/24 07/31/24 Allergies Allergy/AdvReac Type Severity Reaction Status Date / Time diphenhydramine AdvReac Severe Palpitation Verified 07/31/24 15:00 [From Benadryl] s erythromycin base AdvReac Severe Palpitation Verified 07/31/24 15:00 s anything prolongs QT AdvReac Unknown Uncoded 07/31/24 15:00 Review of Systems Review of Systems: All systems reviewed & are unremarkable except as noted in HPI and below Constitutional: Constitutional: Reports no additional constitutional com plaints ENT: Reports system reviewed and no additional complaints, except as documented Cardiovascular: Cardiovascular: Reports no additional cardiovascular complaints, Denies chest pain and Denies dyspnea Respiratory: Respiratory: Reports no additional respiratory complaints, Denies chest congestion, Denies cough and Denies dyspnea Gastrointestinal: Gastrointestinal: Reports no additional gastrointestinal complaints, Denies abdominal pain, Denies nausea and Denies vomiting Genitourinary: Genitourinary: Reports as per HPI Musculoskeletal: Musculoskeletal: Reports no additional musculoskeletal complaints Integumentary/Breasts: Skin/Breast: Reports system reviewed and no additional complaints, except as docu [facility] Past Medical History Medical History Abdominal pain Abnormal CT of the abdomen Calculus of cystic duct without obstruction Gastroesophageal reflux disease GERD (gastroesophageal reflux disease) ICD (implantable cardioverter-defibrillator) battery depletion Neck pain QT prolongation Rectal bleeding Thyroid cancer TMJ (dislocation of temporomandibular joint) Torsades de pointes Surgical History Surgical History History of appendectomy History of sphincterotomy of sphincter of Oddi Hx of cholecystectomy Social History Social History Smoking status: Never smoker Alcohol intake: never Substance use: never Living arrangements: with family Gender identity (if verbalized by the patient): Female Spiritual care concerns: No Comments At the time of my signature, I reviewed and agree with the nursing past medical, surgical, social, and family history. There is no relevant family history p ertinent to the patient complaint. Exam Const: General: cooperative, healthy appearing, comfortable, no acute distress, well developed, alert and well nourished Nutritional Appearance: well nourished Orientation/consciousness: patient oriented x3 Limitations: no limitations HENMT: Head: normal to inspection Ears: hearing grossly normal bilaterally and external ears normal Face/Nose/Sinus: Normal external nose present, normal facial exam and face symmetric Face and sinus: normal facial exam and face symmetric Eyes: General: appearance normal, both eyes and all related structures Alignment and Position: alignment normal Periorbital: periorbital findings normal Neck: Neck: normal visual inspection, full ROM, no lymphadenopathy and no meningeal signs Chest: Chest palpation & inspection: normal inspection of the chest Resp: Effort & Inspection: normal respiratory effort and able to speak in complete sentences Auscultation: clear to auscultation bilaterally, no crackles, no rales, no rhonchi and no wheezes Cardio: Rate: regular rate GI: GI Palp: No abdominal tenderness Skin: General skin exam: normal color and no rashes or lesions noted Lesions: no lesions Rashes: no rashes Wounds: no wounds Neuro: General: patient oriented x3, gait normal, tone normal, moves all extremities and no meningeal signs Cognition (Neuro): normal cognition Speech: normal speech Gait exam (Neuro): Normal gait present Extrem: General: normal to inspection, full ROM, capillary refill normal and normal gait Psych: Appearance: grossly normal and well kempt Mental Status: mental status grossly normal Speech and movement: Normal speech and movement present and Clear speech present Affect: normal affect Attitude: cooperative Course Course Level of Care: Express Care Visit Vital Signs Vital signs: Vital Signs Temperature 97.1 F L 07/31/24 14:56 Pulse Rate 72 07/31/24 14:56 Respiratory Rate 18 07/31/24 14:56 Blood Pressure 147/75 H 07/31/24 14:56 Pulse Oximetry 97 07/31/24 14:56 Oxygen Delivery Room Air 07/31/24 14:56 Temperature 97.1 F L 07/31/24 15:01 Pulse Rate 72 07/31/24 15:01 Respiratory Rate 18 07/31/24 15:01 Blood Pressure 147/75 H 07/31/24 15:01 Pulse Oximetry 97 07/31/24 15:01 Oxygen Delivery Room Air 07/31/24 15:01 Reviewed MDM - Female Genitourinary MDM Narrative Medical decision making narrative: Patient sitting comfortably in exam room. Nontoxic, vitals stable. Patient in no acute distress Patient presents with concerns for UTI Urine dip shows probability of a UTI, will treat with antibiotics. Culture sent Patient appropriate for outpatient treatment and follow-up Discharge instructions reviewed with patient, as well as provided in writing per nursing staff. The instructions also include specific and strict return/GO TO THE ER as well as f/u information. All questions have been answered, and the patient deny any further questions with discharge and discharge plan. Some parts of this dictation were generated by voice recognition software and may contain typographical and/or grammatical inaccuracies. Differential Diagnosis Differential diagnosis: Likely urinary tract infection and cystitis Lab Data Labs: Lab Results 07/31/24 Range/Units 15:02 POC Urine Color Light/pale POC Urine Clarity Cloudy POC Urine pH 6.0 POC Ur Specif [place] 1.015 POC Urine Protein 1+ (Negative) POC Ur Glucose (UA) Negative (Negative) POC Urine Ketones Negative (Negative) POC Urine Blood 3+ (Negative) POC Urine Nitrite Negative (Negative) POC Urine Bilirubin Negative (Negative) POC Urine Urobilinogen 0.2 POC U Leukocyte Esteras 2+ (Negative) Review Critical Care Time Critical Care Time Critical Care Time: No Discharge Plan Discharge Clinical Impression: Urinary tract infection Qualifiers: Urinary tract infection type: acute cystitis Hematuria presence: with hematuria Qualified Code(s): N30.01 - Acute cystitis with hematuria Patient Disposition: Home, Self-Care Condition: Stable Instructions: Antibiotic Form, Urinary Tract Infection in Women (DC) Additional Instructions: Increased water intake Take Tylenol as needed for pain Take antibiotic as prescribed Today your urine dip showed a probability of a UTI. You have been prescribed an antibiotic. Your urine will be sent to our lab for a culture. If at that time a bacteria grows that is not covered by the antibiotic prescribed you will be notified. Is important to keep your appointment for your CT scan on Friday. Follow-up with primary care For new or worsening symptoms go directly to the emergency room Patient Language: Amharic Prescriptions: New amoxicillin-pot clavulanate 875-125 mg tablet 1 tablet PO Q12H Qty: 10 0RF No Action potassium chloride 10 mEq capsule, extended release 10 meq BID levothyroxine [Synthroid] 100 mcg tablet 0.1 mcg DAILY meclizine 25 mg tablet 25 mg PO DIRECTED omeprazole 20 mg capsule,delayed release(DR/EC) 20 mg DAILY cyanocobalamin (vitamin B-12) 50 mcg Tablet 50 mcg PO DAILY losartan 100 mg tablet 50 mg PO BID cholecalciferol (vitamin D3) 250 mcg (10,000 unit) capsule 2,000 mcg PO DAILY dicyclomine 10 mg capsule 10 mg PO TID Qty: 90 3RF Follow-up/Referrals: Maeve,MD Amarilis [Primary Care Provider] - (express care follow up ) Time of Disposition: 15:13
[2024-07-31 14:56] VITALS: BP 147/75; PULSE 72; RESP 18; TEMP 36.2; O2SAT 97
[2024-07-31 15:01] VITALS: BP 147/75; PULSE 72; RESP 18; TEMP 36.2; O2SAT 97
[2024-07-31 15:05] LABS: EDUAAPPEAR Cloudy; EDUABILI Negative (Negative); EDUABLOOD 3+ (Negative); EDUACOLOR1 Light/Pale; EDUAGLUCOSE Negative (Negative); EDUAKETONE Negative (Negative); EDUALEUKO 2+ (Negative); EDUANITRATE Negative (Negative); EDUAPROTEIN 1+ (Negative); EDUASPGRAVITY 1.015; EDUAUROBILI 0.2
== END 2024-07-31 15:18 | disposition home or self-care (01) ==
PROVIDERS: Emergency Provider Nurse Practitioner; PCP Family Medicine
DX: N30.01 Acute cystitis with hematuria (principal); K21.9 Gastro-esophageal reflux disease without esophagitis; Z95.810 Presence of automatic (implantable) cardiac defibrillator; Z85.850 Personal history of malignant neoplasm of thyroid
CPT/HCPCS: 81003; 87086; 99213; G0463

== ENCOUNTER 2024-08-03 10:46 | Outpatient (CLI) | payer MEDICARE, OTHER, SELFPAY ==
--- NOTE | ~2024-08-03 | CT_ITS ---
EXAMINATION: CT abdomen pelvis wo con DATE: 08/03/2024 11:00 INDICATION: RENAL CYST TECHNIQUE: Computed tomography (CT) of the abdomen and pelvis was performed without intravenous contr ast. Automated exposure control and iterative reconstruction technique were employed. The dose-length product was 640.19 mGy-cm. COMPARISON: 04/02/2024. FINDINGS: Lower thorax: Small volume pericardial fluid. Pacer/AICD leads, terminating in expected position. Liver: Normal. Biliary/Gallbladder: Gallbladder is absent. Unchanged calcifications in the gallbladder fossa, likely dropped stones. No bile duct dilation. Pancreas: No mass or duct dilation. Spleen: Granulomatous calcifications. Adrenals:No mass. Kidneys: No suspicious mass, obstructing stone, or hydronephrosis. Punctate left lower pole calcifica tion. Mildly lobulated cyst in the right lower pole measuring up to 4.1 cm. GI tract: No small or large bowel dilation. Appendix surgically absent. Mesentery/Peritoneum: No ascites, mass, or free air. Retroperitoneum: No mass. Pelvis: Calcified peritoneal loose body in the right pelvis. Normal urinary bladder, uterus, and ovar ies. Soft Tissues: Soft tissues and body wall unremarkable. Bones: No acute osseous finding. L3 hemangioma and bone island. IMPRESSION: Small pericardial effusion. No acute abdominopelvic process detected. 4.1 cm simple right lower pole cyst, lobulated border likely related to recent drainage. Reviewed, dictated and finalized at location K. RERS HELPER
== END 2024-08-03 10:47 | disposition home or self-care (01) ==
LOC: MICIMG 10:46
PROVIDERS: PCP Family Medicine; Visit Provider Urology
DX: I31.39 Other pericardial effusion (noninflammatory) (principal); N28.1 Cyst of kidney, acquired
CPT/HCPCS: 74176

== ENCOUNTER 2024-10-26 16:48 | Emergency (ER) | payer MEDICARE, OTHER, SELFPAY ==
--- NOTE | ~2024-10-26 | XR_ITS ---
EXAMINATION: XR chest 2V Exam Date/Time: 10/26/2024 17:20 ROLLER HISTORY: CP WITH LEFT ARM PAIN INTERMITTENTLY Comparison: 05/25/2023. RESULT: Lines, tubes, and devices: Cholecystectomy clips. Right chest pacer/AICD, with intact leads. Lungs and pleura: Clear. Cardiomediastinal silhouette: Stable. Calcified nodes. Other: No acute osseous or upper abdominal finding. IMPRESSION: No acute cardiopulmonary process. Reviewed, dictated and finalized at location [facility]. ER
--- NOTE | 2024-10-26 16:49 | ECG_ITS ---
Test Date: 2024-10-26 16:53:57 Measurements Intervals Bee Rate: 88 P: 64 LA: 160 QRS: -20 QRSD: 89 T: 57 QT: 377 QTc: 458 Interpretive Statements SINUS RHYTHM CANNOT R/O SEPTAL INFARCT, AGE INDETERMINATE BORDERLINE ST ABNORMALITY- LAT/HIGH LAT LEADS ABNORMAL ECG No previous ECG available for comparison Electronically Signed On 10-26-2024 17:45:24 [employer]ARNESS [employer] HANDICAPPER by Cameron Rodrigues D.O.
--- OUTSIDE RECORDS SUMMARY | 2024-10-26 16:50 | XMS_ITS | Encounter Summary ---
Author Organization [facility] Care Team Providers Care Systems Administration Analyst Name Role Phone Brielle Mack MD Primary Care Provider Amarilis Mcfarlane MD Primary Care Provi julito Bayron Barclay DO Unavailable [phone] Encounter Details Date Type Department Care Team (Latest Contact Info) Description 02/29/2016 Orders Only [facility] CLINCONV ProviderIvonne MD [address] [place] [id number] Social History Tobacco Use Types Packs/Day Years Used Date Smoking Tobacco: Never Assessed Comments Unknown Sex and Gender Information Value Date Recorded Sex Assigned at Not on file Legal Sex Female 7:51 AM [employer] PUD[employer]ER Gender Identity Female 06/06/2023 10:34 AM CDT Sexual Orientation Straight 06/06/2023 10 :34 AM CDT documented as of this encounter Plan of Treatment Not on file documented as of this encounter Procedures Procedure Name Priority Date/Time Associated Diagnosis Comments CARDIOLOGY REPORT 03/06/2016 12: 00 AM CDT CARDIOLOGY REPORT 02/29/2016 12: 00 AM CDT documented in this encounter Results * CARDIOLOGY REPORT (03/06/2016 12:00 AM CDT) Anatomical Region Laterality Modality Other Narrative 03/06/2016 12:00 AM CDT Ordered by an unspecified provider. us Historical Provider [facility] C[facility] SERVICES PROCE DURES Final Result * CARDIOLOGY REPORT (02/29/2016 12:00 AM CDT) Anatomical Region Laterality Modality Other Narrative 02/29/2016 12:00 AM CDT Ordered by an unspecified provider. us Historical Provider CV CARDIAC SERVICES PROCE DURES Final Result documented in this encounter Visit Diagnoses Not on filedocumented in this encounter Additional Health Concerns Infection Onset Date Last Indicated Resolved Time COVID: Suspected 09/13/2021 09/13/2021 09/14/2021 12:34 AM C[employer] PUD[employer]ER COVID: Suspected 05/25/2024 05/25/2024 05/25/2024 9:56 AM CDT documented as of this encounter Care Teams Systems Administration Analyst Relationship Specialty Start Date End Date Brielle Mack MD PCP - General 10/23/17 06/28/20 Amarilis Mcfarlane MD [facility] [address] [place] [id number] PCP - General Family Medicine 06/29/20 Bayron Barclay DO [address] [place] [address] MEDICAL ONCOLOGY, [facility] [address] [place], [place] [id number] Medical Oncologist/Miter Operator Hematology and Oncology 04/28/23 documented as of this encounter
--- OUTSIDE RECORDS SUMMARY | 2024-10-26 16:50 | XMS_ITS | Patient Health Summary ---
Author Organization [facility] Address [address] [place] [address] Care Team Providers Care Release Engineer Name Role Phone Brielle Mack MD Primary Care Provider [phone] Note from [facility],non-owned Affiliates and Associated Physician Practices is amultiple site organization consisting of ambulatory clinics and hospital sitesin [place], [place], [place] and [place]. This disclosure is being madepursuant to the Care Everywhere program and may not contain all information available regarding this patient. Last updated 18.[facility] Allergies * Sulfa Drugs(Cardiac Injury) Medications * Be aware that medications may not be up to date on this document. Alwaysverify current medications with the patient. * propranolol (INDERAL) 10 MG tablet Take 10 mg by mouth once daily as needed * vitamin D, cholecalciferol, 2000 UNITS tablet Take 2,000 Units by mouth every morning * aspirin (ASPIRIN) 81 MG tablet Take 81 mg by mouth every morning * levothyroxine (SYNTHROID) 112 MCG tablet Take 112 mcg by mouth daily before breakfast * omeprazole (PRILOSEC) 20 MG capsule Take 20 mg by mouth every morning Active Problems Problem Noted Date Diagnosed Date Defibrillator discharge 06/17/2015 History of thyroid cancer 06/17/2015 Social History Tobacco Use Types Packs/Day Years Used Date Smoking Tobacco: Never Alcohol Use Standard Drinks/Week Comments No 0 (1 standard drink = 0.6 oz pur e alcohol) Sex and Gender Information Value Date Recorded Sex Assigned at Not on file Gender Identity Not on file Sexual Orientation Not on file Last Filed Vital Signs Vital Sign Reading Time Taken Comments Blood Pressure 154/87 01/08/2019 6:14 PM CDT Pulse 81 01/08/2019 3:40 PM CDT Temperature 36.5 C (97.7 F) 01/08/2019 3:40 PM CDT Respiratory Rate 20 01/08/2019 3:40 PM CDT Oxygen Saturation 98% 01/08/2019 6:23 PM CDT Inhaled Oxygen Concentration 100% 01/08/2019 3 :40 PM CDT Weight 79.1 kg (174 lb 6.1 oz) 01/08/2019 3:40 P M CDT Height 166.4 cm (5' 5.5 ) 01/08/2019 3:40 PM CDT Body Mass Index 28.58 01/08/2019 3:40 PM CDT Procedures * DIFFERENTIAL MANUAL(Performed 01/08/2019) * COMPREHENSIVE METABOLIC PANEL(Performed 01/08/2019) * CBC W AUTO DIFFERENTIAL(Performed 01/08/2019) * EKG 12-LEAD(Performed 01/08/2019) Performed for Dizziness * CT HEAD WO CONTRAST(Performed 01/08/2019) Performed for Dizziness * CULTURE URINE(Performed 06/17/2015) Performed for Dysuria * URINALYSIS AUTO - POINT OF CARE (AMB) [facility](Performed 06/17/2015) Performed for Dysuria Results * (ABNORMAL) DIFFERENTIAL MANUAL (01/08/2019 4:48 PM CDT) WBC Auto 11.5(H) 4.0 - 10.0 x10E9/L 01/08/2019 5:50 PM CDT [facility] Neutrophils % Manual 95(H) 40 - 75 % 01/08/2019 5:50 PM CDT [facility] Lymphocytes % Manual 2(L) 19 - 53 % 01/08/2019 5:50 PM CDT [facility] Monocytes % Manual 1(L) 5 - 13 % 01/08/2019 5:50 PM CDT [facility] Eosinophils % Manual 2 1 - 7 % 01/08/2019 5:50 PM CDT [facility] Neutrophils Absolute Manual 10.9(H) 1.6 - 6.1 x10E3/uL 01/08/2019 5:50 PM CDT [facility] Lymphocytes Absolute Manual 0.2(L) 1.2 - 3.7 x10E3/uL 01/08/2019 5:50 PM CDT [facility] Monocytes Absolute Manual 0.1(L) 0.2 - 0.9 x10E3/uL 01/08/2019 5:50 PM CDT [facility] Eosinophils Absolute Manual 0.2 0.0 - 0.5 x10E3/uL 01/08/2019 5:50 PM CDT [facility] Cells Counted 100 # cells 01/08/2019 5:50 PM CDT [facility] Platelet Estimation Adequate platelets Normal, Adequate platelets 01/08/2019 5:50 PM CDT [facility] RBC Morphology Normal 01/08/2019 5:50 PM CDT [facility] WBC Morph Normal 01/08/2019 5:50 PM CDT [facility] Large Platelets 1+(A) None 01/08/2019 5:50 PM CDT [facility] Blood BLOOD SPECIMEN / Unknown Venipuncture / Unknown 01/08/2019 4:48 PM CDT 01/08/2019 4:54 PM CDT Ashlylaura Ruano TARP REPAIRER-LEAD EMBEDDED SOFTWARE ENGINEER LAB - HEMATOL OGY ORDERABLES Performing Organization Address City/State/[facility] Co de Phone Number [facility] [address] * (ABNORMAL) CBC W AUTO DIFFERENTIAL (01/08/2019 4:48 PM CDT) WBC 11.5(H) 4.0 - 10.0 x10E9/L 01/08/2019 4:59 PM CDT [facility] RBC 4.57 3.93 - 5.22 x10E12/L 01/08/2019 4:59 PM CDT [facility] Hemoglobin 14.2 11.2 - 15.7 gm/dL 01/08/2019 4:59 PM CDT [facility] Hematocrit 42.0 34.1 - 44.9 % 01/08/2019 4:59 PM CDT [facility] MCV 91.9 78.0 - 100.0 fl 01/08/2019 4:59 PM CDT [facility] MCH 31.1 25.6 - 34.0 pg 01/08/2019 4:59 PM CDT [facility] MCHC 33.8 32.3 - 36.5 gm/dL 01/08/2019 4:59 PM CDT [facility] RDW 12.9 11.6 - 14.4 % 01/08/2019 4:59 PM CDT [facility] MPV 11.1 9.4 - 12.4 fl 01/08/2019 4:59 PM CDT [facility] Platelet Count 180 163 - 369 x10E9/L 01/08/2019 4:59 PM CDT [facility] nRBC Auto 0 <=0 /100 WBC 01/08/2019 4:59 PM CDT [facility] nRBC Absolute 0.00 <=0 x10E9/L 01/08/2019 4:59 PM CDT [facility] Blood BLOOD SPECIMEN / Unknown Venipuncture / Unknown 01/08/2019 4:48 PM CDT 01/08/2019 4:54 PM CDT Ashly Ruano TARP REPAIRER-LEAD EMBEDDED SOFTWARE ENGINEER LAB - HEMATOL OGY ORDERABLES Performing Organization Address City/State/[facility] Co de Phone Number [facility] [address] * (ABNORMAL) COMPREHENSIVE METABOLIC PANEL (01/08/2019 4:48 PM CDT) Glucose 129(H) 70 - 125 mg/dL 01/08/2019 5:25 PM CDT [facility] Sodium 142 136 - 145 mmol/L 01/08/2019 5:25 PM CDT [facility] Potassium 3.5 3.4 - 4.5 mmol/L 01/08/2019 5:25 PM CDT [facility] Chloride 109(H) 98 - 107 mmol/L 01/08/2019 5:25 PM CDT [facility] CO2 25 22 - 29 mmol/L 01/08/2019 5:25 PM CDT [facility] Calcium 9.13 8.4 - 10.2 mg/dL 01/08/2019 5:25 PM CDT [facility] Anion Gap 12 10 - 20 mmol/L 01/08/2019 5:25 PM CDT [facility] BUN 21.2(H) 9.8 - 20.1 mg/dL 01/08/2019 5:25 PM CDT [facility] Creatinine 0.96 0.57 - 1.11 mg/dL 01/08/2019 5:25 PM CDT [facility] eGFR by MDRD 59(L) >60 mL/min/1.7 3m2 01/08/2019 5:25 PM CDT [facility] eGFR by MDRD >60 >60 mL/min/1.7 3m2 01/08/2019 5:25 PM CDT [facility] Alkaline Phosphatase 82 40 - 150 U/L 01/08/2019 5:25 PM CDT [facility] ALT 18 5 - 55 U/L 01/08/2019 5:25 PM CDT [facility] AST 17 5 - 34 U/L 01/08/2019 5:25 PM CDT [facility] Protein Total 7.0 6.4 - 8.3 gm/dL 01/08/2019 5:25 PM CDT [facility] Albumin 4.2 3.5 - 5.0 gm/dL 01/08/2019 5:25 PM CDT [facility] Globulin Total 2.8 2.6 - 4.0 gm/dL 01/08/2019 5:25 PM CDT [facility] Albumin/Globulin Ratio 1.5 0.9 - 1.6 01/08/2019 5:25 PM CDT [facility] Bilirubin Total 0.5 0.2 - 1.2 mg/dL 01/08/2019 5:25 PM CDT [facility] Blood BLOOD SPECIMEN / Unknown Venipuncture / Unknown 01/08/2019 4:48 PM CDT 01/08/2019 4:54 PM CDT Ashly Ruano TARP REPAIRER-LEAD EMBEDDED SOFTWARE ENGINEER LAB - METAL WORK DUCT INSTALLER RY ORDERABLES [facility] [address] [place] [address], [facility] * EKG 12-LEAD (01/08/2019 4:05 PM CDT) Ventricular Rate 77 BPM [facility] Atrial Rate 77 BPM [facility] P-R Interval 156 ms [facility] QRS Duration ms 76 ms [facility] Q-T Interval ms 430 ms [facility] QTC Calculation (Bezet) 486 ms [facility] Calculated P [place] 64 degrees [facility] Calculated R [place] -3 degrees [facility] Calculated T [place] 38 degrees [facility] Interpretation EKG Sinus rhythm with Premature atrial complexes Otherwise normal ECG No previous ECGs available Confirmed by MD Samantha, [facility] ([id number]) on 01/08/2019 4:21:34 PM [facility] 01/08/2019 4:05 PM CDT 01/08/2019 4:21 PM CDT Mahin Santos MD ECG ORDERABLES [facility] * CT BRAIN WO CONTRAST [id number] (01/08/2019 3:54 PM CDT) Anatomical Region Laterality Modality Head Computed Tomogra phy 01/08/2019 3:55 PM CDT Impressions 01/08/2019 3:57 PM CDT 1. No acute intracranial process noted. Narrative 01/08/2019 3:57 PM CDT STUDY: CT HEAD WO CONTRAST. 01/08/2019 3:55 PM Radiation dose reduction technique was utilized. COMPARISON: No prior studies available HISTORY: Dizziness and giddiness FINDINGS: Ventricles are of normal size and configuration. No evidence of an acute bleed or acute infarct. No extra-axial collections noted. Partially visualized mucosal thickening/retention cyst in the right maxillary sinus. Rest of the visualized paranasal sinuses and mastoid air cells are clear. Calvarium is intact. Procedure Note Phani Smith, DO - 01/08/2019 STUDY: CT HEAD WO CONTRAST. 01/08/2019 3:55 PM Radiation dose reduction technique was utilized. COMPARISON: No prior studies available HISTORY: Dizziness and giddiness FINDINGS: Ventricles are of normal size and configuration. No evidence of an acute bleed or acute infarct. No extra-axial collections noted. Partially visualized mucosal thickening/retention cyst in the right maxillary sinus. Rest of the visualized paranasal sinuses and mastoid air cells are clear. Calvarium is intact. IMPRESSION 1. No acute intracranial process noted. Mahin Santos MD CT ORDERABLES * (ABNORMAL) CULTURE URINE (06/17/2015 10:29 AM CDT) Pathologist [facility] Culture >100,000 CFU/mL Escherichia coli(A) GRACE 06/19/2015 7:28 AM CDT [facility] Urine URINE SPECIMEN OBTAINED BY CLEAN CATCH PROCEDURE / Unknown Collection / Unknown 06/17/2015 10:29 AM CDT 06/17/2015 10:29 AM CDT Narrative Organism Antibiotic Method Susceptibility Escherichia coli Ampicillin GRACE <=2 ug/mL: Susceptible Escherichia coli Cefazolin GRACE <=4 ug/mL: Susceptible Escherichia coli Gentamicin GRACE <=1 ug/mL: Susceptible Escherichia coli Levofloxacin GRACE <=0.12 ug/mL: Susceptible Escherichia coli Nitrofurantoin GRACE <=16 ug/mL: Susceptible Escherichia coli Tobramycin GRACE <=1 ug/mL: Susceptible Escherichia coli Trimethoprim-sulfamethoxazole GRACE <=20 ug/mL: Susceptible Belen Arianna Samuel [facility] - MICROBIOLO GY ORDERABLES [facility] [address] [place] [address] * (ABNORMAL) URINALYSIS AUTO - POINT OF CARE (AMB) [facility] (06/17/2015 10:13 AM CDT) Pathologist [facility] Clarity UA POCT cloudy Color UA POCT yellow Glucose UA Negative Negative Bilirubin UA POCT Negative Negative Ketone UA Negative Negative Specific [place] UA POCT 1.020 1.015, 1.020, 1.025 Blood UA POCT Moderate(A) Negative pH UA 5.5 5.0 - 8.0 pH units Protein UA Trace(A) Negative Urobilinogen UA 0.2 0.1 - 1.0 Nitrite UA Negative Negative Leukocyte UA Large(A) Negative QC Verified Yes Yes Urine specimen (specimen) URINE / Unknown 06/17/2015 10:13 AM CDT Belen Baker APRN-[facility] - POINT OF C ARE ORDERABLES Care Teams Release Engineer Relationship Specialty Start Date End Date Brielle Mack MD PCP - General Family Medicine 01/08/19
--- OUTSIDE RECORDS SUMMARY | 2024-10-26 16:50 | XMS_ITS | Encounter Summary ---
Author Organization [facility] Facility Care Team Providers Care Tree Loader Meat Name Role Phone Brielle Mack MD Primary Care Provider Amarilis Mcfarlane MD Primary Care Provi julito Bayron Barclay DO Unavailable [phone] Encounter Details Date Type Department Care Team (Latest Contact Info) Description 11/11/2016 Orders Only [facility] CLINCON[facility] ProviderIvonne MD [address] [place] [address] Social History Tobacco Use Types Packs/Day Years Used Date Smoking Tobacco: Never Assessed Comments Unknown Sex and Gender Information Value Date Recorded Sex Assigned at Not on file Legal Sex Female 7:51 AM BETA TESTER Gender Identity Female 06/06/2023 10:34 AM CDT Sexual Orientation Straight 06/06/2023 10 :34 AM CDT documented as of this encounter Plan of Treatment Not on file documented as of this encounter Procedures Procedure Name Priority Date/Time Associated Diagnosis Comments CARDIOLOGY REPORT 11/13/2016 12: 00 AM BETA TESTER documented in this encounter Results * CARDIOLOGY REPORT (11/13/2016 12:00 AM BETA TESTER) Anatomical Region Laterality Modality Other Narrative 11/13/2016 12:00 AM BETA TESTER Ordered by an unspecified provider. Historical Provider [facility] YAMILET ZHANG Final Result documented in this encounter Visit Diagnoses Not on filedocumented in this encounter Additional Health Concerns Infection Onset Date Last Indicated Resolved Time COVID: Suspected 09/13/2021 09/13/2021 09/14/2021 12:34 AM BETA TESTER COVID: Suspected 05/25/2024 05/25/2024 05/25/2024 9:56 AM CDT documented as of this encounter Care Teams Tree Loader Meat Relationship Specialty Start Date End Date Brielle Mack MD PCP - General 10/23/17 06/28/20 Amarilis Mcfarlane MD [facility] [address] [place], [place] [id number] PCP - General Family Medicine 06/29/20 Bayron Barclay DO [address] [place] [address] MEDICAL ONCOLOGY, [facility] [address] [place] [address] Medical Oncologist/Grain Roaster Hematology and Oncology 04/28/23 documented as of this encounter
--- OUTSIDE RECORDS SUMMARY | 2024-10-26 16:50 | XMS_ITS | Referral Summary ---
Author Organization [facility] Address [address] [place] [address] Care Team Providers Care Guest History Clerk Name Role Phone Brielle Mack MD Primary Care Provider [phone] [facility],non-owned Affiliates and Associated Physician Practices is amultiple site organization consisting of ambulatory clinics and hospital sitesin [place], [place], [place] and [place]. This disclosure is being madepursuant to the Care Everywhere program and may not contain all information available regarding this patient. Last updated 18.[facility] Allergies Active Allergy Reactions Criticality Noted Date Comments Sulfa Drugs Cardiac Injury 06/17/2015 Episodes of Torsads - Medications * Be aware that medications may not be up to date on this document. Alwaysverify current medications with the patient. Medication Sig Dispensed Refills Start Date End Date Status propranolol (INDERAL) 10 MG tablet Take 10 mg by mouth once daily as needed Active vitamin D, cholecalciferol, 2000 UNITS tablet Take 2,000 Units by mouth every morning Active aspirin (ASPIRIN) 81 MG tablet Take 81 mg by mouth every morning Active levothyroxine (SYNTHROID) 112 MCG tablet Take 112 mcg by mouth daily before breakfast Active omeprazole (PRILOSEC) 20 MG capsule Take 20 mg by mouth every morning Active Active Problems Problem Noted Date Diagnosed Date [...] Mass Index 28.58 01/08/2019 3:40 PM CDT Plan of Treatment Not on file Care Teams Guest History Clerk Relationship Specialty Start Date End Date Brielle Mack MD PCP - General Family Medicine 01/08/19
--- OUTSIDE RECORDS SUMMARY | 2024-10-26 16:50 | XMS_ITS | Encounter Summary ---
Author Organization [facility] Facility Care Team Providers Care Art Museum Aide Name Role Phone Brielle Mack MD Primary Care Provider Amarilis Mcfarlane MD Primary Care Provi julito Bayron Barclay DO Unavailable [phone] Encounter Details Date Type Department Care Team (Latest Contact Info) Description 12/01/2017 Orders Only [facility] CLINCONV ProviderIvonne MD [address] [place] [address] Social History Tobacco Use Types Packs/Day Years Used Date Smoking Tobacco: Never Assessed Comments Unknown Sex and Gender Information Value Date Recorded Sex Assigned at Not on file Legal Sex Female 7:51 AM SEAFOOD CLERK Gender Identity Female 06/06/2023 10:34 AM CDT Sexual Orientation Straight 06/06/2023 10 :34 AM CDT documented as of this encounter Plan of Treatment Not on file documented as of this encounter Procedures Procedure Name Priority Date/Time Associated Diagnosis Comments CARDIOLOGY REPORT 12/01/2017 12: 00 AM CDT documented in this encounter Results * CARDIOLOGY REPORT (12/01/2017 12:00 AM CDT) Anatomical Region Laterality Modality Other Narrative 12/01/2017 12:00 AM CDT Ordered by an unspecified provider. Historical Provider [facility] YAMILET ZHANG Final Result documented in this encounter Visit Diagnoses Not on filedocumented in this encounter Additional Health Concerns Infection Onset Date Last Indicated Resolved Time COVID: Suspected 09/13/2021 09/13/2021 09/14/2021 12:34 AM SEAFOOD CLERK COVID: Suspected 05/25/2024 05/25/2024 05/25/2024 9:56 AM CDT documented as of this encounter Care Teams Art Museum Aide Relationship Specialty Start Date End Date Brielle Mack MD PCP - General 10/23/17 06/28/20 Amarilis Mcfarlane MD [address] [place] [address] PCP - General Family Medicine 06/29/20 Bayron Barclay DO [address] [place] [address] MEDICAL ONCOLOGY, [facility] [address] [place] [address] Medical Oncologist/Copy Camera Operator Hematology and Oncology 04/28/23 documented as of this encounter
--- OUTSIDE RECORDS SUMMARY | 2024-10-26 16:50 | XMS_ITS | Encounter Summary ---
Author Organization [facility] Facility Care Team Providers Care Security Auditor Name Role Phone Brielle Mack MD Primary Care Provider Amarilis Mcfarlane MD Primary Care Provi julito Bayron Barclay DO Unavailable [phone] Encounter Details Date Type Department Care Team (Latest Contact Info) Description 05/27/2016 Orders Only [facility] CLINCONV ProviderIvonne MD [address] [place] [address] Social History Tobacco Use Types Packs/Day Years Used Date Smoking Tobacco: Never Assessed Comments Unknown Sex and Gender Information Value Date Recorded Sex Assigned at Not on file Legal Sex Female 7:51 AM PAPER AND PULP MILL WORKER Gender Identity Female 06/06/2023 10:34 AM CDT Sexual Orientation Straight 06/06/2023 10 :34 AM CDT documented as of this encounter Plan of Treatment Not on file documented as of this encounter Procedures Procedure Name Priority Date/Time Associated Diagnosis Comments CARDIOLOGY REPORT 05/27/2016 12: 00 AM CDT CARDIOLOGY REPORT 05/27/2016 12: 00 AM CDT documented in this encounter Results * CARDIOLOGY REPORT (05/27/2016 12:00 AM CDT) Anatomical Region Laterality Modality Other Narrative 05/27/2016 12:00 AM CDT Ordered by an unspecified provider. us Historical Provider [facility] PROCE DURES Final Result * CARDIOLOGY REPORT (05/27/2016 12:00 AM CDT) Anatomical Region Laterality Modality Other Narrative 05/27/2016 12:00 AM CDT Ordered by an unspecified provider. us Historical Provider [facility] PROCE DURES Final Result documented in this encounter Visit Diagnoses Not on filedocumented in this encounter Additional Health Concerns Infection Onset Date Last Indicated Resolved Time COVID: Suspected 09/13/2021 09/13/2021 09/14/2021 12:34 AM PAPER AND PULP MILL WORKER COVID: Suspected 05/25/2024 05/25/2024 05/25/2024 9:56 AM CDT documented as of this encounter Care Teams Security Auditor Relationship Specialty Start Date End Date Brielle Mack MD PCP - General 10/23/17 06/28/20 Amarilis Mcfarlane MD [facility] [address] [place] [address] PCP - General Family Medicine 06/29/20 Bayron Barclay DO [address] [place] [address] MEDICAL ONCOLOGY, [facility] [address] [place], [place] [address] Medical Oncologist/A R Specialist Hematology and Oncology 04/28/23 documented as of this encounter
--- OUTSIDE RECORDS SUMMARY | 2024-10-26 16:50 | XMS_ITS | Encounter Summary ---
Author Organization [facility] Facility Care Team Providers Care Cardiology Clinical Consultant Name Role Phone Brielle Mack MD Primary Care Provider Amarilis Mcfarlane MD Primary Care Provi julito Bayron Barclay DO Unavailable [phone] Encounter Details Date Type Department Care Team (Latest Contact Info) Description 08/29/2016 Orders Only [facility] CLINCONV ProviderIvonne MD [address] [place] [address] Social History Tobacco Use Types Packs/Day Years Used Date Smoking Tobacco: Never Assessed Comments Unknown Sex and Gender Information Value Date Recorded Sex Assigned at Not on file Legal Sex Female 7:51 AM ESCALATOR OPERATOR Gender Identity Female 06/06/2023 10:34 AM CDT Sexual Orientation Straight 06/06/2023 10 :34 AM CDT documented as of this encounter Plan of Treatment Not on file documented as of this encounter Procedures Procedure Name Priority Date/Time Associated Diagnosis Comments CARDIOLOGY REPORT 09/04/2016 12: 00 AM ESCALATOR OPERATOR CARDIOLOGY REPORT 08/29/2016 12: 00 AM ESCALATOR OPERATOR documented in this encounter Results * CARDIOLOGY REPORT (09/04/2016 12:00 AM ESCALATOR OPERATOR) Anatomical Region Laterality Modality Other Narrative 09/04/2016 12:00 AM ESCALATOR OPERATOR Ordered by an unspecified provider. Historical Provider MD [facility] PROCE DURES Final Result * CARDIOLOGY REPORT (08/29/2016 12:00 AM ESCALATOR OPERATOR) Anatomical Region Laterality Modality Other Narrative 08/29/2016 12:00 AM ESCALATOR OPERATOR Ordered by an unspecified provider. Historical Provider [facility] PROCE DURPETR Final Result documented in this encounter Visit Diagnoses Not on filedocumented in this encounter Additional Health Concerns Infection Onset Date Last Indicated Resolved Time COVID: Suspected 09/13/2021 09/13/2021 09/14/2021 12:34 AM ESCALATOR OPERATOR COVID: Suspected 05/25/2024 05/25/2024 05/25/2024 9:56 AM CDT documented as of this encounter Care Teams Cardiology Clinical Consultant Relationship Specialty Start Date End Date Brielle Mack MD PCP - General 10/23/17 06/28/20 Amarilis Mcfarlane MD [address] [place] [phone] PCP - General Family Medicine 06/29/20 Bayron Barclay DO [address] [place] [address] MEDICAL ONCOLOGY, [facility] [address] [place] [address] Medical Oncologist/Business Support Associate Hematology and Oncology 04/28/23 documented as of this encounter
--- OUTSIDE RECORDS SUMMARY | 2024-10-26 16:50 | XMS_ITS | Clinical Summary ---
Author Organization [facility] Care Team Providers Care Biodiesel Engineering Manager Name Role Phone Unavailable Primary Care Provider Unavailabl e Social History Tobacco Use Types Packs/Day Years Used Date Smoking Tobacco: Never Assessed Comments Unknown Sex and Gender Information Value Date Recorded Sex Assigned at Not on file Legal Sex Female 8:12 AM HALL SUPERVISOR Gender Identity Not on file Sexual Orientation Not on file Plan of Treatment Health Maintenance Due Date Last Done Comments DEXA Bone Density 1955 Hepatitis C Virus (HCV) Screening 1955 TdaP Immunization 1955 Colonoscopy 2001 Colorectal Cancer Screening 2001 Cologuard 2006 Immunochemical Fecal Occult Blood 2006 Mammogram 2006 Pneumococcal Immunization (5 0+ years) (1 of 1 - PCV) 2006 Zoster Immunization (1 of 2) 2006 Influenza Immunization (#1) 05/09/202406/08, 06/29/2020 SARS-COV-2 Immunization ( season) 2024 11/13/2020, 10/21/2020 Respiratory Syncytial Virus (RSV) Immunization (Adult) (1 - 1-dose 75+ series) 2031 Hepatitis B Immunization Aged Out No longer eligible based on patient's age to complete this topic Meningococcal Immunization (ACWY) Aged Out No longer eligible b ased on patient's age to complete this topic Rotavirus Immunization Aged Out No lo nger eligible based on patient's age to complete this topic
--- OUTSIDE RECORDS SUMMARY | 2024-10-26 16:50 | XMS_ITS | Encounter Summary ---
Author Organization [facility] Address [address] [place] [address] Care Team Providers Care Intermediate Project Manager Name Role Phone Amarilis Mcfarlane MD Primary Care Provi julito Bayron Barclay DO Unavailable [phone] Reason for Visit * Reason Comments Hypertension Patient arrives with blood pressure concerns. No sxs Encounter Details Date Type Department Care Team (Late st Contact Info) Description 10/04/2024 1:30 PM CHOP SAW OPERATOR Office Visit [facility] Family Medicine [address] [id number] Angela Garrison PA [address] [address] Primary hypertension (Primary Dx); Postoperative hypothyroidism; Low serum calcium; Low bone mass; BMI 28.0-28.9,adult; Low serum vitamin B12; Medication monitoring encounter; Mixed hyperlipidemia Social History Tobacco Use Types Packs/Day Years Used Date Smoking Tobacco: Never Smokeless Tobacco: Never Tobacco Cessation:Counseling Given: Not Answered Alcohol Use Standard Drinks/Week Comments No 0 (1 standard drink = 0.6 oz pur e alcohol) AUDIT-C Answer Date Recorded Q1: How often do you have a drink containing alcohol? Never 10/04/2024 Q2: How many drinks containi ng alcohol do you have on a typical day when you are drinking? Patient does not drink Q3: How often do you have si x or more drinks on one occasion? Never 10/04/2024 PHQ-2 Answer Date Recorded PHQ-2 Total Score (If total score is 3 or more points, staff should administer the PHQ-9) 0 10/04/2024 Comments No Sex and Gender Information Value Date Recorded Sex Assigned at Not on file Legal Sex Female 7:51 AM CHOP SAW OPERATOR Gender Identity Female 06/06/2023 10:34 AM CDT Sexual Orientation Straight 06/06/2023 10 :34 AM CDT documented as of this encounter Last Filed Vital Signs Vital Sign Reading Time Taken Comments Blood Pressure 124/82 10/04/2024 1:11 PM CHOP SAW OPERATOR Pulse 78 10/04/2024 1:11 PM CHOP SAW OPERATOR Temperature 36.7 C (98.1 F) 10/04/2024 1:11 PM CHOP SAW OPERATOR Respiratory Rate 16 10/04/2024 1:11 PM CHOP SAW OPERATOR Oxygen Saturation 98% 10/04/2024 1:11 PM CHOP SAW OPERATOR Inhaled Oxygen Concentration - - Weight 78.8 kg (173 lb 12.8 oz) 10/04/2024 1:11 PM CHOP SAW OPERATOR Height 165.1 cm (5' 5 ) 10/04/2024 1:11 PM CHOP SAW OPERATOR Body Mass Index 28.92 10/04/2024 1:11 PM CHOP SAW OPERATOR documented in this encounter Functional Status * Audit-C Score Answer Date of Assessment Author 0 10/04/2024 1:11 PM CHOP SAW OPERATOR Shari Paredes MA * Question Answer Date of Assessment Author Q1: How often do you have a drink containing alcohol? Never 10/04/2024 1:11 PM Shari Valenzuela MA Q2: How many drinks containing alcohol do you have on a typical day when you are drinking? Patient does not drink 10/04/2024 1:11 PM CHOP SAW OPERATOR Shari Paredes MA Q3: How often do you have six or more drinks on one occasion? Never 10/04/2024 1:11 PM Shari Valenzuela MA documented as of this encounter Ordered Prescriptions Prescription Sig Dispense Quantity Refills Last Filled Start Date End Date levothyroxine (SYNTHROID) 112 mcg tablet Take 1 tablet (112 mcg total) by mouth congressional representative before breakfast 90 tablet 1 10/04/2024 documented in this encounter Progress Notes * Angela Garrison, PA - 10/04/2024 1:30 PM CST Images from the original note were not included. Subjective/Objective Patient ID: Yasmine Menjivar is a 69 y.o. female. Chief Complaint Hypertension (Patient arrives with blood pressure concerns. No sxs) HPI Patient presents for evaluation management of hypertension. Home log ranges from 115-135 systolic with occasional high of 160 over diastolic 70-80 with occasional highs of 98. She often feels anxious when blood is high. Currently taking Losartan 100 mg daily and Clonidine 0.1 mg as needed. She rarely uses the clonidine but was instructed to use from Cardiology if blood pressure is greater than 170/90. Denies CP, SOB, headache, blurry vision, decreased urinary output. Labs with recent hypocalcemia. She is taking supplemental vitamin D, calcium for low bone mass. Hypothyroidism - TSH elevated at last check. Patient would like to consider adjusting levothyroxine. Review of Systems Constitutional: Negative for chills and fever. HENT: Negative for congestion and sore throat. Respiratory: Negative for cough and shortness of breath. Gastrointestinal: Negative for abdominal pain, nausea and vomiting. Musculoskeletal: Negative for myalgias. Skin: Negative for rash. Neurological: Negative for headaches. Vitals: 10/04/24 1311 BP: 124/82 BP Location: Left arm Patient Position: Sitting Pulse: 78 Resp: 16 Temp: 36.7 ??C (98.1 ??F) TempSrc: Oral SpO2: 98% Weight: 78.8 kg (173 lb 12.8 oz) Height: 165.1 cm (5' 5 ) Physical Exam Vitals and nursing note reviewed. Constitutional: General: She is not in acute distress. Appearance: Normal appearance. HENT: Head: Normocephalic and atraumatic. Eyes: Conjunctiva/sclera: Conjunctivae normal. Cardiovascular: Rate and Rhythm: Normal rate and regular rhythm. Heart sounds: Normal heart sounds. Pulmonary: Effort: Pulmonary effort is normal. No respiratory distress. Breath sounds: Normal breath sounds. No wheezing, rhonchi or rales. Skin: General: Skin is warm and dry. Neurological: Mental Status: She is alert and oriented to person, place, and time. Psychiatric: Mood and Affect: Mood normal. Behavior: Behavior normal. Assessment/Plan Diagnoses and all orders for this visit: Primary hypertension (Primary) Assessment & Plan: Chronic. Mostly controlled. Patient's average readings from home log are 115-135 systolic though she does have some highs around 160 on occasion. Diastolic averaging 70-80 with high of 90 on occasion. - At this time recommend continuing losartan 100 mg daily and utilizing the clonidine if you noticeblood pressure greater than 170/ 90. - continue to keep log- can check 1-2x daily. - may consider trying new BP med if continues to have sporadic readings Postoperative hypothyroidism Assessment & Plan: Chronic. Elevated mildly at last 2 lab checks. - Increase levothyroxine from 100-112 mcg daily - Repeat labs in 6 weeks Orders: - TSH; Future - T4, free; Future Low serum calcium Comments: New issue. Patient reports history of low calcium after her thyroid ablation. - Check vitamin-D, PTH, further managment pending results Orders: - PTH; Future - Vitamin D 25 hydroxy; Future Low bone mass Assessment & Plan: Chronic. Discussed recommendation for 500 mg of calcium daily or 3 servings of calcium in diet daily. Discussed recommendation for vitamin-D [id number] international units daily. She may try to get this all from a multivitamin. Orders: - Vitamin D 25 hydroxy; Future BMI 28.0-28.9,adult Assessment & Plan: BMI Follow-up includes: education provided. Low serum vitamin B12 - Vitamin B12; Future Medication monitoring encounter - Lipid panel; Future Mixed hyperlipidemia - Lipid panel; Future Other orders - levothyroxine (SYNTHROID) 112 mcg tablet; Take 1 tablet (112 mcg total) by mouth congressional representative before breakfast No follow-ups on file. *This note is dictated using [email or web address] voice recognition software, variances in spelling and vocabulary are possible and unintentional.* JUAREZ Britt SAW OPERATOR documented in this encounter Miscellaneous Notes * Assessment & Plan Note - Angela Garrison PA - 10/04/2024 2:52 PM CHOP SAW OPERATOR Associated Problem(s): Primary hypertension Chronic. Mostly controlled. Patient's average readings from home log are 115-135 systolic though she does have some highs around 160 on occasion. Diastolic averaging 70-80 with high of 90 on occasion. - At this time recommend continuing losartan 100 mg daily and utilizing the clonidine if you noticeblood pressure greater than 170/ 90. - continue to keep log- can check 1-2x daily. - may consider trying new BP med if continues to have sporadic readings SAW OPERATOR * Assessment & Plan Note - Angela Garrison PA - 10/04/2024 2:50 PM CHOP SAW OPERATOR Associated Problem(s): Postoperative hypothyroidism Chronic. Elevated mildly at last 2 lab checks. - Increase levothyroxine from 100-112 mcg daily - Repeat labs in 6 weeks SAW OPERATOR * Assessment & Plan Note - Angela Garrison PA - 10/04/2024 2:49 PM CHOP SAW OPERATOR Associated Problem(s): Low bone mass Chronic. Discussed recommendation for 500 mg of calcium daily or 3 servings of calcium in diet daily. Discussed recommendation for vitamin-D [id number] international units daily. She may try to get this all from a multivitamin. SAW OPERATOR * Assessment & Plan Note - Angela Garrison PA - 10/04/2024 2:48 PM CHOP SAW OPERATOR Associated Problem(s): BMI 28.0-28.9,adult BMI Follow-up includes: education provided. SAW OPERATOR * Addendum Note - Itzel Kumar MA - 10/04/2024 1:30 PM CSTAddended by: ITZEL KUMAR on: 10/26/2024 02:21 PM Modules accepted: Orders SAW OPERATOR documented in this encounter Plan of Treatment Scheduled Orders Name Type Priority Associated Diagnoses Orde r Schedule Lipid panel Lab Routine Medication monitoring encounter Mixed hyperlipidemia Expected: 10/04/2024, Expires: 10/04/2025 Vitamin D 25 hydroxy Lab Routine Low serum calcium Low bone mass Expected: 10/07/2024, Expires: 10/04/2025 PTH Lab Routine Low serum calcium Expected: 10/07/2024, Expires: 10/04/2025 Vitamin B12 Lab Routine Low serum vitamin B12 Expected: 10/07/2024, Expires: 10/04/2025 T4, free Lab Routine Postoperative hypothyroidism Expected: 11/15/2024, Expires: 10/04/2025 TSH Lab Routine Postoperative hypothyroidism Expected: 11/15/2024, Expires: 10/04/2025 documented as of this encounter Visit Diagnoses Diagnosis Primary hypertension- Primary Unspecified essential hypertension Postoperative hypothyroidism Postsurgical hypothyroidism Low serum calcium Low bone mass BMI 28.0-28.9,adult Low serum vitamin B12 Medication monitoring encounter Encounter for therapeutic drug monitoring Mixed hyperlipidemia documented in this encounter Discontinued Medications Medication Sig Discontinue Reason Start Date End Da te levothyroxine (SYNTHROID) 100 mcg tablet Take 1 tablet (100 mcg total) by mouth daily Alternate therapy 03/01/2024 10/04/2024 documented as of this encounter Care Teams Intermediate Project Manager Relationship Specialty Start Date End Date Amarilsi Mcfarlane MD [facility] [address] [place] [id number] PCP - General Family Medicine 06/29/20 Bayron Barclay DO [address] [place] [address] MEDICAL ONCOLOGY, [address] [address] Medical Oncologist/Head Of Training And Development Hematology and Oncology 04/28/23 documented as of this encounter
--- OUTSIDE RECORDS SUMMARY | 2024-10-26 16:50 | XMS_ITS | Clinical Summary ---
Author Organization [facility] Address [address] [place] [address] Care Team Providers Care Firestop/Containment Worker Name Role Phone Brielle Mack MD Primary Care Provider [phone] Source Comments [facility]),non-owned Affiliates and Associated Physician Practices is amultiple site organization consisting of ambulatory clinics and hospital sitesin [place], [place], [place] and [place]. This disclosure is being madepursuant to the Care Everywhere program and may not contain all information available regarding this patient. Last updated 18.[facility] Allergies Active Allergy Reactions Criticality Noted Date [...] discharge 06/17/2015 History of thyroid cancer 06/17/2015 Family History Medical History Relation Name Comments Diabetes Brother 1 Heart Disease Brother 1 Lymphoma Brother 2 Diabetes Father Heart Disease Father Cancer - Prostate Maternal Grandfather Cancer - Colon Maternal Grandmother Hypertension Mother CVA Paternal Grandfather CVA Paternal Grandmother Cancer - Breast Sister Relation Name Status Comments Brother 1 Brother 2 Alive Father Maternal Grandfather Maternal Grandmother Mother Alive Paternal Grandfather Paternal Grandmother Sister Social History Tobacco Use Types Packs/Day Years [...] 01/08/2019 3:40 PM CDT Plan of Treatment Health Maintenance Due Date Last Done Comments BONE DENSITY TESTING 1955 COLOGUARD (AGES 45-75) - COL ON CA SCREENING 1955 COLON MONITORING 1956 COLONOSCOPY - COLON CA SCREENING 1956 CT COLONOGRAPHY - COLON CA SCREENING 1956 Colorectal Cancer Screening 1956 FIT - COLON CA SCREENING 1956 FLEX SIG - COLON CA SCREENING 1956 LIPID TESTING 1956 MAMMOGRAM 1956 MEDICARE AWV 12 MONTHS 1956 HEPATITIS C SCREENING 03/29/1974 DTAP/TDAP/TD VACCINES (1 - Tdap) 1975 PNEUMOCOCCAL VACCINE 50+ (1 of 1 - PCV) 2006 ZOSTER VACCINE (1 of 2) 2006 COVID-19 VACCINE ( - 2023-2 5 season) 2024 INFLUENZA VACCINE (#1) 2024 06/08/2017 DEPRESSION SCREENING 09/08/2024 Respiratory Syncytial Virus (RSV) Vaccine Pt: or over 60 yrs (1 - 1-dose 75+ series) 2031 HEPATITIS B VACCINE Aged Out No longe r eligible based on patient's age to complete this topic HIB VACCINE Aged Out No longer eligi ble based on patient's age to complete this topic HPV VACCINE Aged Out No longer eligi ble based on patient's age to complete this topic MENINGOCOCCAL (Group B) VACCINE Aged Out No longer eligible based on patient's age to complete this topic MENINGOCOCCAL VACCINE Aged Out No adamaris pam eligible based on patient's age to complete this topic Care Teams Firestop/Containment Worker Relationship Specialty Start Date End Date Brielle Mack MD PCP - General Family Medicine 01/08/19
--- OUTSIDE RECORDS SUMMARY | 2024-10-26 16:50 | XMS_ITS | Encounter Summary ---
Author Organization [facility] Care Team Providers Care Dough Machine Operator Name Role Phone Brielle Mack MD Primary Care Provider Amarilis Mcfarlane MD Primary Care Provi julito Bayron Barclay DO Unavailable [phone] Encounter Details Date Type Department Care Team (Latest Contact Info) Description 07/02/2017 Orders Only [facility] CLINCON[facility] ProviderIvonne MD [address] [place] [id number] Social History Tobacco Use Types Packs/Day Years Used Date Smoking Tobacco: Never Assessed Comments Unknown Sex and Gender Information Value Date Recorded Sex Assigned at Not on file Legal Sex Female 7:51 AM VP INTEGRITY Gender Identity Female 06/06/2023 10:34 AM CDT Sexual Orientation Straight 06/06/2023 10 :34 AM CDT documented as of this encounter Plan of Treatment Not on file documented as of this encounter Procedures Procedure Name Priority Date/Time Associated Diagnosis Comments CARDIOLOGY REPORT 07/04/2017 12: 00 AM CDT documented in this encounter Results * CARDIOLOGY REPORT (07/04/2017 12:00 AM CDT) Anatomical Region Laterality Modality Other Narrative 07/04/2017 12:00 AM CDT Ordered by an unspecified provider. Historical Provider [facility] YAMILET ZHANG Final Result documented in this encounter Visit Diagnoses Not on filedocumented in this encounter Additional Health Concerns Infection Onset Date Last Indicated Resolved Time COVID: Suspected 09/13/2021 09/13/2021 09/14/2021 12:34 AM VP INTEGRITY COVID: Suspected 05/25/2024 05/25/2024 05/25/2024 9:56 AM CDT documented as of this encounter Care Teams Dough Machine Operator Relationship Specialty Start Date End Date Brielle Mack MD PCP - General 10/23/17 06/28/20 Amarilis Mcfarlane MD [address] [place] [address] PCP - General Family Medicine 06/29/20 Bayron Barclay DO [address] [place] [address] MEDICAL ONCOLOGY, [facility] [address] [place] [address] Medical Oncologist/Want Ad Receiver Hematology and Oncology 04/28/23 documented as of this encounter
--- OUTSIDE RECORDS SUMMARY | 2024-10-26 16:51 | XMS_ITS | Referral Summary ---
Author Organization [facility] Address [address] [place] [address] Care Team Providers Care Manager Food Name Role Phone Amarilis Mcfarlane MD Primary Care Provi julito Bayron Barclay DO Unavailable [phone] Encounters Date Type Department Care Team Description 10/04/2024 1:30 PM STOCK TRACER [facility] Family Medicine [address] [address] Angela Garrison PA Primary hypertension (Primary Dx); Postoperative hypothyroidism; Low serum calcium; Low bone mass; BMI 28.0-28.9,adult; Low serum vitamin B12; Medication monitoring encounter; Mixed hyperlipidemia 08/23/2024 Telephone [facility] Cardiology [address] [facility] [address] [place] [address] Claude Milton MD 08/23/2024 3:00 PM STOCK TRACER Ancillary Procedure [facility] Cardiology [address] [place] [address] Pericardial effusion 08/19/2024 Telephone [facility] Family Medicine [address] [address] Amarilis Mcfarlane MD 08/19/2024 Orders Only [facility] Cardiology [address] [facility] 8th [place] [address] [place] [address] Brandy Jj MD ICD (implantable cardioverter-defibrill ator) in place (Primary Dx) 08/19/2024 Telephone [facility] Cardiology [address] [facility] 8th [place] [address] [place] [address] Sury Bournee 08/19/2024 8:30 AM STOCK TRACER Office Visit [facility] Cardiology [address] [place] [address] Claude Milton MD ICD (implantable cardioverter-defibrill ator) in place (Primary Dx); Pericardial effusion; PVC's (premature ventricular contractions); Nonsustained ventricular tachycardia (HCC); H/O cardiac arrest; Primary hypertension; Torsades de pointes (HCC); Mixed hyperlipidemia 08/12/2024 Orders Only [facility] Medicine [address] [place] [address] Amarilis Mcfarlane MD Hematuria, unspecified type (Primary Dx) 08/12/[address] [address] Amarilis Mcfarlane MD 08/11/[address] [address] Amarilis Mcfarlane MD 08/06/2024 8:30 AM STOCK TRACER Ancillary Procedure [facility] Cardiology [address] [facility] [address] [place] [address] ICD (implantable cardioverter-defibrill ator) in place; Torsades de pointes (HCC); QT prolongation from Last 3 Months Allergies Active Allergy Reactions Criticality Noted Date Comments Sulfasalazine Other (See comments) Low 06/17/2015 Episodes of Torsads - Prologs the QT interval Medications cholecalcifero l (VITAMIN D-3) 2000 unit capsule 1 capsule (2,000 Units total) Active miscellaneous medical supply (Blood Pressure Cuff) miscIndication s:Elevated blood pressure reading 1 arm blood pressure cuff. Check blood pressure once daily. 1 each 3 Active dicyclomine (BENTYL) 10 mg capsule Take 1 capsule (10 mg total) by mouth 3 Active cyanocobalamin (Vitamin B-12) 1,000 mcg sublingual tablet Take 2 tablets (2,000 mcg total) by mouth daily Active omeprazole (PriLOSEC) 20 mg capsuleIndicat ions:Nausea Take 1 capsule (20 mg total) by mouth 2 (two) times a day 180 capsule 1 4 Active Additional Information Patient not taking.Reported on 10/04/2024 potassium chloride ER 10 mEq CR tabletIndicati ons:ICD (implantable cardioverter-d efibrillator) in place Take 1 tablet/capsule (10 mEq total) by mouth daily 90 tablet/capsu le 1 4 Active losartan (COZAAR) 50 mg tablet Take 1 tablet (50 mg total) by mouth 2 (two) times a day 180 tablet 1 4 Active Additional Information Patient taking differently: 100 mgoralDaily, Reported on 10/04/2024 atorvastatin (LIPITOR) 20 mg tablet Take 1 tablet (20 mg total) by mouth daily 90 tablet 3 4 08/26/20 25 Active Additional Information Patient taking differently: 10 mgoral Daily, Reported on 10/04/2024 meclizine (ANTIVERT) 25 mg tablet TAKE 1 TABLET(25 MG) BY MOUTH THREE TIMES DAILY NEEDED FOR DIZZINESS 30 tablet 5 Active cloNIDine (CATAPRES) 0.1 mg tabletIndicati ons:Elevated blood pressure reading Take 1 tablet (0.1 mg total) by mouth daily as needed for high blood pressure 15 tablet 5 Active levothyroxine (SYNTHROID) 112 mcg tablet Take 1 tablet (112 mcg total) by mouth dining room attendant before breakfast 90 tablet 1 5 Active levothyroxine (SYNTHROID) 100 mcg tablet Take 1 tablet (100 mcg total) by mouth daily 90 tablet 3 4 10/04/19 25 Discontin ued(Alter miguel therapy) cloNIDine (CATAPRES) 0.1 mg tabletIndicati ons:Elevated blood pressure reading Take 1 tablet (0.1 mg total) by mouth daily as needed for high blood pressure 15 tablet 4 10/04/19 25 Discontin ued(Reord er) Active Problems Problem Noted Date Diagnosed Date BMI 28.0-28.9,adult 10/04/2024 Assessment & Plan (10/04/2024 2:48 PM STOCK TRACER): BMI Follow-up includes: education provided. Pericardial effusion 08/19/2024 Mixed hyperlipidemia 07/22/2024 Torsades de pointes 02/05/2024 Postoperative hypothyroidism 01/01/2024 Assessment & Plan (10/04/2024 2:50 PM STOCK TRACER): Chronic. Elevated mildly at last 2 lab checks. - Increase levothyroxine from 100-112 mcg daily - Repeat labs in 6 weeks Tingling in extremities 01/01/2024 Bilateral carpal tunnel syndrome 01/01/2024 Sphincter of Oddi dysfunction 07/22/2023 Overview (07/22/2024): Followed by GI Primary hypertension 05/26/2023 Assessment & Plan (10/04/2024 2:52 PM STOCK TRACER): Chronic. Mostly controlled. Patient's average readings from home log are 115-135 systolic though she does have some highs around 160 on occasion. Diastolic averaging 70-80 with high of 90 on occasion. - At this time recommend continuing losartan 100 mg daily and utilizing the clonidine if you notice blood pressure greater than 170/ 90. - continue to keep log- can check 1-2x daily. - may consider trying new BP med if continues to have sporadic readings Assessment & Plan (05/25/2024 10:01 AM CDT): Chronic. Evening blood pressure readings have been elevated for the past month. Patient increased her losartan to 100 mg daily, but blood pressure remains elevated. Recommend initially splitting her dosing, take losartan 50 mg twice daily. Will see if this helps improve her evening blood pressure readings. She will continue to monitor her blood pressure twice daily. If there is no improvement in her blood pressure readings then will add another daily medication. Patient voiced understanding. Update us in about a week. Assessment & Plan (07/22/2023 3:39 PM STOCK TRACER): Chronic, stabe Continue current regimen Assessment & Plan (06/10/2023 11:28 AM CDT): Chronic, improved Continue losartan Continue clonidine only if needed Continue to follow with Cardiology Update me with any changes Call for questions Low bone mass 05/30/2022 Assessment & Plan (10/04/2024 2:49 PM STOCK TRACER): Chronic. Discussed recommendation for 500 mg of calcium daily or 3 servings of calcium in diet daily. Discussed recommendation for vitamin-D 7946-3593 international units daily. She may try to get this all from a multivitamin. Assessment & Plan (07/22/2023 3:39 PM STOCK TRACER): Chronic, stable Continue vitamin d Follow up testing ordered Assessment & Plan (05/30/2022 10:13 AM CDT): Continue vitamin d, calcium Strength training, walking H/O cardiac arrest 11/13/2021 Assessment & Plan (07/22/2023 3:37 PM STOCK TRACER): Chronic, stable Managed by cardiology Update me with any changes or concerns Assessment & Plan (05/30/2022 10:11 AM CDT): Following with cardiology Other headache syndrome 10/31/2021 Assessment & Plan (07/22/2023 3:39 PM STOCK TRACER): Acute, resolved Continue to monitor Update me if anything changes or worsens Assessment & Plan (05/30/2022 10:14 AM CDT): Occasional headaches Keep track of headaches Avoid triggers Update me if her symptoms change or worsen Assessment & Plan (10/31/2021 1:02 PM STOCK TRACER): Differential migraine versus cluster versus other With her history of prolonged QT, we are limited in the medications we can use. We discussed verapamil versus propranolol Patient would like to hold off on medications at this time We reviewed rebound headache and use of ibuprofen, Aleve, Tylenol Encouraged to keep a headache journal Update me with any changes or concerns QT prolongation 05/11/2021 Assessment & Plan (07/22/2023 3:40 PM STOCK TRACER): Chronic, stable Managed by cardiology S/p ICD placement Assessment & Plan (05/30/2022 10:13 AM CDT): S/p pacemaker Continue to follow with cardiology PVC's (premature ventricular contractions) 05/11 Assessment & Plan (07/22/2023 3:40 PM STOCK TRACER): Chronic, stable Managed by cardiology Update me with any changes or concerns Assessment & Plan (05/30/2022 10:13 AM CDT): S/p pacemaker Continue to follow with cardiology Nonsustained ventricular tachycardia 05/11/2021 Assessment & Plan (07/22/2023 3:39 PM STOCK TRACER): Chronic, stable Managed by cardiology S/p ICD placement Assessment & Plan (05/30/2022 10:13 AM CDT): S/p pacemaker Continue to follow with cardiology Family history of heart disease 05/11/2021 Assessment & Plan (07/22/2023 3:29 PM STOCK TRACER): Chronic, stable Managed by cardiology Continue current regimen Assessment & Plan (05/30/2022 10:10 AM CDT): Chronic, stable Continue to follow with cardiology Encounter for Medicare annual wellness exam 04/08 Overview (07/22/2024): Encouraged healthy diet and activity Please look into a power of criminal defense attorney or living will Health Maintenance: Last mammogram:07/31, 08/01- WNL Last DEXA: 01/27- Low bone mass-ordered Last colonoscopy: 06/28-repeat in 10 years Last Tdap: encouraged Last pneumonia: up to date Last Shingrix: reviewed Last Flu: reviewed Last COVID: reviewed Assessment & Plan (07/22/2024 8:04 AM STOCK TRACER): Encouraged healthy diet and activity Please look into a power of criminal defense attorney or living will Health Maintenance: Last mammogram:07/31, 08/01- WNL Last DEXA: 01/27- Low bone mass-ordered Last colonoscopy: 06/28-repeat in 10 years Last Tdap: encouraged Last pneumonia: up to date Last Shingrix: reviewed Last Flu: reviewed Last COVID: reviewed Assessment & Plan (07/22/2023 3:28 PM STOCK TRACER): Encouraged healthy diet and activity Please look into a power of criminal defense attorney or living will Health Maintenance: Last mammogram:07/31- WNL Last DEXA: 01/27- Low bone mass Last colonoscopy: 06/28-repeat in 10 years Last Tdap: encouraged Last pneumonia: up to date Last Shingrix: reviewed Last Flu: reviewed Last COVID: reviewed Assessment & Plan (05/30/2022 10:09 AM CDT): Encouraged healthy diet and activity Please look into a power of criminal defense attorney or living will Health Maintenance: Last mammogram:scheduled Last DEXA: 2020- Low bone mass Last colonoscopy: 06/28-repeat in 10 years Last Tdap: encouraged Last pneumonia: due second one Last Shingrix: reviewed Last Flu: reviewed Last COVID: reviewed Assessment & Plan (04/25/2021 2:08 PM CDT): Encouraged healthy diet and activity Please look into a power of criminal defense attorney or living will Wear sun screen, seat belts Health Maintenance: Last mammogram:scheduled Last DEXA: ordered Last Pap: today Last colonoscopy: referral placed Last Tdap: encouraged Last pneumonia/Prevnar: reviewed Last Shingrix: reviewed Last Flu: up to date Last COVID: up to date GERD (gastroesophageal reflux disease) Assessment & Plan (07/22/2023 3:36 PM STOCK TRACER): Chronic, stable Continue prilosec for now Consider referral to gi for follow up Update me with any changes or concerns Assessment & Plan (05/30/2022 10:11 AM CDT): Continue prilosec We reviewed the benefits, cons, and possible side effects of the medication including the risk of C diff, pneumonia, bone loss, and possible kidney issues with proton pump inhibitors. We also reviewed the risks of leaving GERD untreated Assessment & Plan (10/31/2021 1:01 PM STOCK TRACER): With esophagitis and gastritis on her CT scan Continue Prilosec b.i.d. 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 land surveyor manager Update me after the visit Assessment & Plan (04/25/2021 12:16 PM CDT): Continue omeprazole Reviewed the risk and benefits of medication Grief 08/01/2020 Assessment & Plan (07/22/2023 3:37 PM STOCK TRACER): Chronic, stable Continue supportive care Assessment & Plan (05/30/2022 10:11 AM CDT): Improved, doing well with supportive care Assessment & Plan (04/25/2021 12:15 PM CDT): Patient with a significant amount of loss over the last year Continue supportive care Update me if her mood worsens or changes Assessment & Plan (08/01/2020 1:22 PM STOCK TRACER): Some of her symptoms may be related to her most recent loss- weight loss Continue to use the support around her Update me with any concerns ICD (implantable cardioverter-defibrillator) in place 05/27/2016 Overview (06/19/2022): Medtronic Dual ICD-Evera. Dx; Cardiac Arrest, VT. DOI 07/18/2014-Dr Bell. [employer] remote is not working. Patient prefers office checks Q3 months. Assessment & Plan (07/22/2023 3:38 PM STOCK TRACER): Chronic, stable Managed by cardiology Assessment & Plan (05/30/2022 10:12 AM CDT): S/p pacemaker Continue to follow with cardiology Assessment & Plan (04/25/2021 2:09 PM CDT): Continue to follow with cardiology- update me after the visit with her new EP Assessment & Plan (01/13/2020 1:11 PM CDT): Check remote today shows normal function. Underlying rhythm sinus. Excellent lead function. No treated events. Rare short runs of nonsustained VT. Only 1 event over the last 3 months. Seven beats on December 09. No episodes since. Assessment & Plan (01/07/2019 3:45 PM CDT): Check today shows normal function. 37% a pace no V pacing. Six years. History of thyroid cancer 06/17/2015 Assessment & Plan (07/22/2023 3:38 PM STOCK TRACER): Chronic, stable Managed by oncology Continue to monitor Assessment & Plan (05/30/2022 10:12 AM CDT): Chronic, stable Follows with oncology Continue synthroid Assessment & Plan (04/25/2021 2:10 PM CDT): Continue levothyroxine at current dose Continue to follow with Dr Barclay Resolved Problems Problem Noted Date Diagnosed Date Resolved Date Hypokalemia 06/02/2023 07/22/2024 Assessment & Plan (07/22/2023 3:38 PM STOCK TRACER): Chronic,s table Continue replacement History of torsades de pointes 05/08/2021 07/22/2024 Assessment & Plan (07/22/2023 3:38 PM STOCK TRACER): Chronic, stable Managed by cardiology S/p pacemaker Assessment & Plan (05/30/2022 10:12 AM CDT): S/p pacemaker Continue to follow with cardiology Allergic rhinitis 04/25/2021 07/22/2024 Assessment & Plan (07/22/2023 3:29 PM STOCK TRACER): Chronic, stable Asymptomatic Continue to monitor Assessment & Plan (05/30/2022 10:09 AM CDT): Chronic, stable Assessment & Plan (04/25/2021 2:11 PM CDT): Continue flonase Thyroid cancer ([facility]/HCC) 04/17/2018 Cardiac arrest 05/27/2016 11/13/2021 Assessment & Plan (04/25/2021 12:15 PM CDT): Continue to follow with Cardiology ICD in place Update me with any changes Assessment & Plan (01/13/2020 1:11 PM CDT): No indication for antiarrhythmics. Continue Inderal as needed for palpitations Assessment & Plan (01/07/2019 3:45 PM CDT): Intraop. Etiology unclear Defibrillator discharge 06/17/20150 11/2020 Immunizations Immunization Administration Dates Next Due Influenza, Quad, Adjuvantate d, Intramuscular 06/23/2023,06/03/2022,06/25/2021 Influenza, Quadrivalent, Rec ombinant, Egg Free, Preservative Free, Intramuscular 06/29/2020 Influenza, Quadrivalent, Spl it, Preservative Free, Intramuscular 06/16/2019 Influenza, Trivalent, Adjuva nted, Intramuscular 06/18/2024 Influenza, Unspecified 06/10/2023(Deferr ed: Patient ill today),05/26/2023(Deferred: Patient Refused),06/08/2017 Moderna SARS-CoV-2 Monovalen t Vaccination (12+ YRS) 11/13/2020,10/17/2020 Pneumococcal Conjugate PCV 13 10/31/2021 Pneumococcal Polysaccharide PPV23 12/09/2022 RSV Vaccine, Pref, Recombina nt, Subunit, Adjuvanted, PF, IM (Arexvy) 09/15/2023 TD Preservative Free 09/03/2023 Tdap 09/13/2023, 3(Deferred: Patient Refused) Varicella 06/10/2023(Deferred: Patient Ref used) Social History Tobacco Use Types Packs/Day Years [...] on file Legal Sex Female 7:51 AM STOCK TRACER Gender Identity Female 06/06/2023 10:34 AM CDT Sexual Orientation Straight 06/06/2023 10 :34 AM CDT Last Filed Vital Signs Vital Sign Reading Time Taken Comments Blood Pressure 124/82 10/04/2024 1:11 PM STOCK TRACER Pulse 78 10/04/2024 1:11 PM STOCK TRACER Temperature 36.7 C (98.1 F) 10/04/2024 1:11 PM STOCK TRACER Respiratory Rate 16 10/04/2024 1:11 PM STOCK TRACER Oxygen Saturation 98% 10/04/2024 1:11 PM STOCK TRACER Inhaled Oxygen Concentration - - Weight 78.8 kg (173 lb 12.8 oz) 10/04/2024 1:11 PM STOCK TRACER Height 165.1 cm (5' 5 ) 10/04/2024 1:11 PM STOCK TRACER Body Mass Index 28.92 10/04/2024 1:11 PM STOCK TRACER Plan of Treatment Not on file Procedures Procedure Name Priority Date/Time Associated Diagnosis Comments T4, FREE Routine 09/14/2024 8:10 AM STOCK TRACER COMPREHENSIVE METABOLIC PANEL Routine 09/14/2024 8:10 AM STOCK TRACER Primary hypertension Calculus of bile duct without cholecystitis and without obstruction THYROID FUNCTION CASCADE Routine 09/14/2024 8:10 AM STOCK TRACER Postoperative hypothyroidism TRANSTHORACIC ECHO (TTE) COMPLETE W DOPPLER/CF WO CONTRAST Routine 08/23/2024 4:18 PM STOCK TRACER Pericardial effusion REFLEXIVE URINE CULTURE Routine 08/19/2024 10:08 AM STOCK TRACER URINALYSIS AND REFLEX TO MICROSCOPIC AND CULTURE Routine 08/19/2024 10:08 AM STOCK TRACER Hematuria, unspecified type DEVICE CHECK - REMOTE Routine 08/09/2024 9:09 AM STOCK TRACER ICD (implantable cardioverter-defibri llator) in place Torsades de pointes (HCC) QT prolongation SCREENING MAMMOGRAM BILATERAL W ISAC Schedule Routine, Read Routine (OP Routine) 07/16/2024 9:37 AM STOCK TRACER Screening mammogram, encounter for HEPATITIS C ANTIBODY Routine 06/04/2022 9:22 AM CDT Need for hepatitis C screening test DEXA AXIAL SKELETON BONE DENSITY 1 OR MORE SITES Schedule Routine, Read Routine (OP Routine) 01/31/2022 9:03 AM CDT Postmenopausal status COLONOSCOPY Routine 06/27/2021 from Last 3 Months or Most Recently Relevant to Health Maintenance Results * (ABNORMAL) Thyroid Function [place] (09/14/2024 8:10 AM STOCK TRACER) TSH 4.89(H) 0.40 - 4.50 mIU/L [facility] Blood 09/14/2024 8:10 AM STOCK TRACER 09/14/2024 8:10 AM STOCK TRACER us Amarilis Mcfarlane MD LAB BLOOD ORDERABLE S Final Result [facility] [address] [place] [address] * T4, free (09/14/2024 8:10 AM STOCK TRACER) Free T4 1.3 0.8 - 1.8 ng/dL [facility] 09/14/2024 8:10 AM STOCK TRACER 09/14/2024 8:10 AM STOCK TRACER us Amarilis Mcfarlane MD LAB BLOOD ORDERABLE S Final Result [facility] [address] [place] [address] * (ABNORMAL) Comprehensive metabolic panel (09/14/2024 8:10 AM STOCK TRACER) Pathologist [facility] Glucose 81 65 - 99 mg/dL [facility] Comment: Fasting reference interval BUN 21 7 - 25 mg/dL [facility] Creatinine 0.94 0.50 - 1.05 mg/dL [facility] eGFR 66 > OR = 60 mL/min/1.7 3m2 [facility] BUN/creat ratio SEE NOTE: 6 - 22 (calc) [facility] Comment: Not Reported: BUN and Creatinine are within reference range. Sodium 143 135 - 146 mmol/L [facility] Potassium, pl 3.8 3.5 - 5.3 mmol/L [facility] Chloride 104 98 - 110 mmol/L [facility] CO2 31 20 - 32 mmol/L [facility] Calcium 8.5(L) 8.6 - 10.4 mg/dL [facility] Protein, sr 6.5 6.1 - 8.1 g/dL [facility] Albumin 4.3 3.6 - 5.1 g/dL [facility] GLOBULIN 2.2 1.9 - 3.7 g/dL (calc) [facility] Alb/glob ratio 2.0 1.0 - 2.5 (calc) [facility] Bilirubin, total 0.6 0.2 - 1.2 mg/dL [facility] Alk phos 78 37 - 153 U/L [facility] AST 17 10 - 35 U/L [facility] ALT (SGPT) 17 6 - 29 U/L [facility] Blood 09/14/2024 8:10 AM STOCK TRACER 09/14/2024 8:10 AM STOCK TRACER us Amarilis Mcfarlane MD LAB BLOOD ORDERABLE S Final Result [facility] [address] [place] [address] * TRANSTHORACIC ECHO (TTE) COMPLETE W DOPPLER/CF WO CONTRAST (08/23/2024 4:18 PM STOCK TRACER) Anatomical Region Laterality Modality Ultrasound 08/23/2024 3:28 PM STOCK TRACER Narrative 08/24/2024 11:46 AM STOCK TRACER [facility] Card[facility] [address] [facility] [address], [place] [address] [address] [facility] [address] [address] P:[phone] P:[phone] Echocardiographic Report Patient Name: YASMINE MENJIVAR M : 1955 Study Date: 08/23/2024 3:28:02 PM Gender: F Tech: Location: [facility] Provider: CLAUDE MILTON Height(Cm): 165 BSA: 1.9 Weight(Kg): 78.9 Heart Rate: 86 BP: 140 / 81 Quality: Good Order Provider: CLAUDE MILTON PROCEDURES: Echocardiographic Report: Transthoracic echocardiogram with complete 2D, M-Mode, and color Doppler examination. With Strain Analysis. INDICATIONS: I31.39 Other pericardial effusion (noninflammatory). MEASUREMENTS: 2D/MM Value Range Doppler Value Range Estimated EF 62 % RAMA Vmax 2.02 cm2 [ 2.00 - 4.00 ] LVIDd 2D 4.00 cm [ 3.80 - 5.20 ] AV Mean PG 5 mmHg LVIDs 2D 2.30 cm [ 2.20 - 3.50 ] AV Peak Antonio 1.44 m/s [ 1.00 - 1.70 ] LVPWd 2D 0.98 cm [ 0.60 - 0.90 ] AV Peak PG 8 mmHg IVSd 2D 1.05 cm [ 0.60 - 0.90 ] AV VTI 26.90 cm LA Volume Index 24 cc/m2 [ 16 - 34 ] LVOT Diam 1.96 cm [ 1.70 - 2.10 ] LVOT Peak Antonio 0.80 m/s [ 0.70 - 1.10 ] LVOT VTI 16.95 cm MV E Peak Antonio 0.95 m/s [ 0.60 - 1.30 ] MV A Peak Antonio 1.13 m/s [ 1.00 - 1.20 ] MV Decel Time 184 msec [ 104 - 258 ] TR Peak Antonio 2.47 m/s [ 1.00 - 2.80 ] TR Peak PG 24 mmHg Lateral E` 0.06 m/s [ 0.10 - 0.15 ] E` 0.06 m/s E/E` 16 2D/MM Value Range Doppler Value Range - FINDINGS: Interpretation Site: Exam was interpreted at [facility]. Left Ventricle: Ejection Fraction is visually estimated to be 62 %. Global Longitudinal Strain is -20 %. The left ventricle is normal in size and systolic function. The left ventricular ejection fraction is visually estimated to be 60-65%. Resting Segmental Wall Motion Analysis: Total wall motion score is 1.00. There are no regional wall motion abnormalities. Right Ventricle: Linear artifact in right ventricle suggestive of catheter(s), pacemaker lead(s), or ICD lead(s). The right ventricle is normal in size and systolic function. Left Atrium: The left atrium is normal in size. Right Atrium: The right atrium is normal in size. Atrial Septum: The atrial septum is not well visualized. Mitral Valve: The mitral valve is normal. There is trace mitral regurgitation. Aortic Valve: The aortic valve is trileaflet and opens well. There is no aortic regurgitation. Tricuspid Valve: The tricuspid valve is grossly normal. There is trace tricuspid regurgitation. Pulmonic Valve: The pulmonic valve is not well visualized. There is no pulmonic valve regurgitation. Pericardium: Small pericardial effusion. There is a 0.4 cm size pericardial effusion that is seen in the available views anterior to the right ventricle. Aorta: The aortic root measures 3.0 cm in diameter. IVC: The IVC is not well visualized. CONCLUSIONS: Small pericardial effusion. There is a 0.4 cm size pericardial effusion that is seen in the available views anterior to the right ventricle. Electronically Signed By: Dr. Ayaan Mitchell 08/24/2024 11:46:08 AM STOCK TRACER 62 Procedure Note Ayaan Mitchell MD - 08/24/2024 [facility] [address] [facility] [address], [place] [address] [address] [facility] [address] [address] P:[phone] P:[phone] Echocardiographic Report Patient Name: YASMINE MENJIVAR M : 1955 Study Date: 08/23/2024 3:28:02 PM Gender: F Tech: Location: [facility] Provider: CLAUDE MILTON Height(Cm): 165 BSA: 1.9 Weight(Kg): 78.9 Heart Rate: 86 BP: 140 / 81 Quality: Good Order Provider: CLAUDE MILTON PROCEDURES: Echocardiographic Report: Transthoracic echocardiogram with complete 2D, M-Mode, and color Dopplerexamination. With Strain Analysis. INDICATIONS: I31.39 Other pericardial effusion (noninflammatory). MEASUREMENTS: 2D/MM Value Range Doppler ValueRange Estimated EF 62 % RAMA Vmax 2.02cm2 [ 2.00 - 4.00 ] LVIDd 2D 4.00 cm [ 3.80 - 5.20 ] AV Mean PG 5mmHg LVIDs 2D 2.30 cm [ 2.20 - 3.50 ] AV Peak Antonio 1.44m/s [ 1.00 - 1.70 ] LVPWd 2D 0.98 cm [ 0.60 - 0.90 ] AV Peak PG 8mmHg IVSd 2D 1.05 cm [ 0.60 - 0.90 ] AV VTI 26.90cm LA Volume Index 24 cc/m2 [ 16 - 34 ] LVOT Diam 1.96 cm[ 1.70 - 2.10 ] LVOT Peak Antonio 0.80 m/s [ 0.70 - 1.10 ] LVOT VTI 16.95 cm MV E Peak Antonio 0.95 m/s [ 0.60 - 1.30 ] MV A Peak Antonio 1.13 m/s [ 1.00 - 1.20 ] MV Decel Time 184 msec [ 104 - 258 ] TR Peak Antonio 2.47 m/s [ 1.00 - 2.80 ] TR Peak PG 24 mmHg Lateral E` 0.06 m/s [ 0.10 - 0.15 ] E` 0.06 m/s E/E` 16 2D/MM Value Range Doppler ValueRange - FINDINGS: Interpretation Site: Exam was interpreted at [facility]. Left Ventricle: Ejection Fraction is visually estimated to be 62 %. Global LongitudinalStrain is -20 %. The left ventricle is normal in size and systolic function. The leftventricular ejection fraction is visually estimated to be 60-65%. Resting Segmental Wall Motion Analysis: Total wall motion score is 1.00. There are no regional wall motionabnormalities. Right Ventricle: Linear artifact in right ventricle suggestive of catheter(s), pacemakerlead(s), or ICD lead(s). The right ventricle is normal in size and systolic function. Left Atrium: The left atrium is normal in size. Right Atrium: The right atrium is normal in size. Atrial Septum: The atrial septum is not well visualized. Mitral Valve: The mitral valve is normal. There is trace mitral regurgitation. Aortic Valve: The aortic valve is trileaflet and opens well. There is no aorticregurgitation. Tricuspid Valve: The tricuspid valve is grossly normal. There is trace tricuspidregurgitation. Pulmonic Valve: The pulmonic valve is not well visualized. There is no pulmonic valveregurgitation. Pericardium: Small pericardial effusion. There is a 0.4 cm size pericardial effusionthat is seen in the available views anterior to the right ventricle. Aorta: The aortic root measures 3.0 cm in diameter. IVC: The IVC is not well visualized. CONCLUSIONS: Small pericardial effusion. There is a 0.4 cm size pericardial effusionthat is seen in the available views anterior to the right ventricle. Electronically Signed By: Dr. Ayaan Mitchell 08/24/2024 11:46:08 AM STOCK TRACER 62 us Claude Milton MD CV ECHO PROCEDURES Milagros l Result * REFLEXIVE URINE CULTURE (08/19/2024 10:08 AM STOCK TRACER) Urine culture [facility] Comment:NO CULTURE INDICATED 08/19/2024 10:0 8 AM STOCK TRACER 08/19/2024 10:08 AM STOCK TRACER us Amarilis Mcfarlane MD LAB MICROBIOLOGY - GENERAL ORDERABLES Final Result [facility] [address] [place] [address] * Urinalysis reflex to microscopic and culture Urine (08/19/2024 10:08 AM STOCK TRACER) Color, ur YELLOW YELLOW [facility] Appearance, ur CLEAR CLEAR [facility] Specific gravity 1.016 1.001 - 1.035 [facility] pH, ur 5.5 5.0 - 8.0 [facility] Glucose, ur NEGATIVE NEGATIVE [facility] Bilirubin, ur NEGATIVE NEGATIVE [facility] Ketones, ur NEGATIVE NEGATIVE [facility] Blood, ur NEGATIVE NEGATIVE [facility] Protein, ur, quant NEGATIVE NEGATIVE [facility] Nitrites, ur NEGATIVE NEGATIVE [facility] Leukocyte esterase, ur NEGATIVE NEGATIVE [facility] WBC, ur NONE SEEN < OR = 5 /HPF [facility] RBC, ur NONE SEEN < OR = 2 /HPF [facility] Epithelial cells, squamous, ur NONE SEEN < OR = 5 /HPF [facility] Bacteria, ur, quant NONE SEEN NONE SEEN /HPF [facility] Hyaline cast NONE SEEN NONE SEEN /LPF [facility] Note [facility] Comment: This urine was analyzed for the presence of WBC, RBC, bacteria, casts, and other formed elements. Only those elements seen were reported. Urine 08/19/2024 10:0 8 AM STOCK TRACER 08/19/2024 10:08 AM STOCK TRACER us Amarilis Mcfarlane MD LAB MICROBIOLOGY - GENERAL ORDERABLES Final Result [facility] [address] [place] [address] * DEVICE CHECK - REMOTE (08/09/2024 9:09 AM STOCK TRACER) Anatomical Region Laterality Modality Other Narrative 09/10/2024 8:46 AM STOCK TRACER Table formatting from the original result was not included. Patient ID: Yasmine Menjivar is a 69 y.o. female This patient has a(n) Medtronic dual chamber ICD. They had a remote transmission on 08/06/2024. Device implant indications: VT arrest Interrogation of the patient's device demonstrates the following: Presenting EGM: /VS Mode: MVP 60/130 bpm Device Settings Right Atrium Right Ventricle Sensitivity 0.30 mV 0.60 mV Pacing outputs 1.5 V @ 0.4 ms 3.0 V @ 0.4 ms Testing Measurements Right Atrium RA previous/trend Right Ventricle RV previous/trend Sensitivity 3.0 mV 4.9 mV 9.6 mV 11.4 mV Impedance 551 ohms 589 ohms 608 ohms 722 ohms HV lead impedance 42 ohms 47 ohms Pacing threshold 0.375 V @ 0.4 ms 0.5 V @ 0.4 ms 1.5 V @ 0.4 ms 0.5 V @ 0.4 ms Pacing % 28.6% 10.5% <0.1% <0.1% Battery Status: 7 months to ZARINA. Charge time 4.6 seconds Episodes last 90 days: None Comments: Programming appropriate for device measurements. RV threshold increase since last in-clinic check in January. Less than a year to ZARINA. See attached report. Medications: Anticoagulant(s): n/a Antiarrhythmic(s): n/a Plan: EP follow up scheduled with Dr. Muhammad at [facility]. Yun Viera RN Addendum: 7 months to ZARNIA Increase in RV capture threshold since previous. Review of graft shows gradual increase over the last 6-8 months, continuing to increase from a baseline of approximately 0.5, increasing then to 1, now to 1.5. Other lead metrics are stable Eliceo Montanez MD Cardiac Electrophysiology us Eliceo Montanez MD CV CARDIAC SERVICES PROCE [facility] Final Result * Screening Mammogram Bilateral [facility] (07/16/2024 9:37 AM STOCK TRACER) Anatomical Region Laterality Modality Breast Bilateral Mammography Impressions 07/16/2024 5:12 PM STOCK TRACER BI-RADS ATLAS category (overall): 1 - Negative There is no mammographic evidence of malignancy. A 1 year screening mammogram is recommended. The patient has been or will be contacted. We recommend annual screening mammography for women at average risk of breast cancer beginning at age 40, based on guidelines of the [employer] [employer] (ACR Practice Parameter for the Performance of Screening and Diagnostic Mammography) and [place] [employer]. For women with and elevated risk of breast cancer, please refer to the ACR Practice Parameter for specific screening recommendations. The patient will be entered into a reminder system with a target due date of 1 year for her next screening exam. Narrative 07/16/2024 5:12 PM STOCK TRACER Screening Mammogram Bilateral W Isac: 07/16/24 The study was acquired using full field digital technology and interpreted from soft copy. 2D digital mammographic views, as well as 3D digital tomosynthesis were performed in the CC and MLO projections. CLINICAL: Screening mammogram, encounter for. Medical history includes hypertension, cancer, and thyroid disease. History of breast cancer in Sister. COMPARISONS: 07/15/2023 Screening Mammogram Bilateral W [facility] 07/12/2022 Screening Mammogram Bilateral [facility] 05/03/2021 Diagnostic Mammogram Left [facility] 05/03/2021 US Breast Left Limited 04/30/2021 Screening Mammogram Bilateral [facility] BREAST TISSUE: The breasts are heterogeneously dense, which may obscure small masses. FINDINGS: No suspicious masses, suspicious calcifications, or other suspicious findings are seen within either breast. There has been no suspicious change...A pacing device obscures a portion of the left axilla. us Self Screening Mammogram IMG MAMMO PROCEDURES Fi nal Result * Hepatitis C antibody (06/04/2022 9:22 AM CDT) Hep C Ab NON-REACTI VE NON-REACT UMESH [facility] SIGNAL TO CUT-OFF 0.01 <1.00 [facility] Comment: HCV antibody was non-reactive. There is no laboratory evidence of HCV infection. In most cases, no further action is required. However, if recent HCV exposure is suspected, a test for HCV RNA (test code 52131) is suggested. For additional information please refer to http://education.LetsBuy.com/faq/VOT86g2 (This link is being provided for informational/ educational purposes only.) Blood 06/04/2022 9:22 AM CDT 06/04/2022 9:25 AM CDT Narrative [facility] - 06/05/2022 10:11 AM CDT FASTING:YES FASTING: YES Amarilis Mcfarlane MD LAB MICROBIOLOGY - GENERAL ORDERABLES Final Result [facility] [address] [place] [address] * Dexa Axial Skeleton Bone Density 1 or 2 Site (01/31/2022 9:03 AM CDT) Anatomical Region Laterality Modality Body N/A Mammography 01/31/2022 3:21 PM CDT Narrative 01/31/2022 3:21 PM CDT EXAM DESCRIPTION: DEXA AXIAL SKELETON BONE DENSITY 1 OR MORE SITES REASON FOR STUDY: 66 y/o year old F with given history of screening. 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 FINDINGS: AP LUMBAR SPINE L1-L4: Total BMD is 0.907 g/cm2 T-score is -1.3 LEFT HIP: Total BMD is 0.834 g/cm2 T-score is -0.9 Femoral neck BMD is 0.646 g/cm2 T-score is -1.8 FRAX: 10 year risk for a major osteoporotic fracture is 25 %, 10 year risk for a hip fracture is 4.1 % IMPRESSION: Low bone mass REFERENCE: Bone mineral density: Normal (T-score above or = -1.0) Low bone mass (T-score between -1.0 and -2.5) replaces the previously used term osteopenia Osteoporosis (T-score = or below -2.5) Medical evaluation for secondary causes of low bone mineral density may be appropriate. FRAX is a World Health Organization validated fracture risk assessment tool that calculates a person's 10 year probability of a major osteoporosis related fracture and hip fracture. According to the National Osteoporosis Foundation guidelines, postmenopausal women and men age 50 or older with low bone mass and a 10 year probability of a major osteoporosis related fracture = or greater than 20% or a 10 year probability of a hip fracture = or greater than 3% should be considered for treatment. For further information, including treatment recommendations, please refer to the 2013 ISCD Official Positions (http://www.iscd.org) and the NOF's Clinician's Guide to Prevention and Treatment of Osteoporosis (http://www.nof.org/professionals/clinical-guidelines) THIS IS AN ELECTRONICALLY VERIFIED FINAL REPORT 01/31/2022 3:21 PM - Electronically signed by Amrita Dennison M.D. TB: TB Report ID: [id number] Reading Location: [facility] [place] Procedure Note Amrita Middleton MD - 01/31/2022 EXAM DESCRIPTION: DEXA AXIAL SKELETON BONE DENSITY 1 OR MORE SITES REASON FOR STUDY: 66 y/o year old F with given history ofscreening. 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 FINDINGS: AP LUMBAR SPINE L1-L4: Total BMD is 0.907 g/cm2 T-score is -1.3 LEFT HIP: Total BMD is 0.834 g/cm2 T-score is -0.9 Femoral neck BMD is 0.646 g/cm2 T-score is -1.8 FRAX: 10 year risk for a major osteoporotic fracture is 25 %, 10 year risk for ahip fracture is 4.1 % IMPRESSION: Low bone mass REFERENCE: Bone mineral density: Normal (T-score above or = -1.0) Low bone mass (T-score between -1.0 and -2.5) replaces thepreviously used term osteopenia Osteoporosis (T-score = or below -2.5) Medical evaluation for secondary causes of low bone mineral density may be appropriate. FRAX is a World Health Organization validated fracture risk assessmenttool that calculates a person's 10 year probability of a major osteoporosisrelated fracture and hip fracture. According to the National OsteoporosisFoundation guidelines, postmenopausal women and men age 50 or older with low bonemass and a 10 year probability of a major osteoporosis related fracture = or greater than 20% or a 10 year probability of a hip fracture = or greaterthan 3% should be considered for treatment. For further information, including treatment recommendations, please referto the 2013 ISCD Official Positions (http://www.iscd.org) and the NOF's Clinician's Guide to Prevention and Treatment of Osteoporosis (http://www.nof.org/professionals/clinical-guidelines) THIS IS AN ELECTRONICALLY VERIFIED FINAL REPORT 01/31/2022 3:21 PM - Electronically signed by Amrita Dennison M.D. TB: TB Report ID: [id number] Reading Location: [facility] [place] us Amarilis Mcfarlane MD IMG DXA PROCEDURES Final Result * Colonoscopy (06/27/2021) Anatomical Region Laterality Modality Other Historical Provider ENDOSCOPY PROCEDURES Milagros l Result from Last 3 Months or Most Recently Relevant to Health Maintenance Insurance MEDICARE [facility] MEDICARE [facility] MEDICARE [facility] [employer] Care Teams Manager Food Relationship Specialty Start Date End Date Amarilis Mcfarlane MD [address] [facility] [place], [place] [id number] PCP - General Family Medicine 06/29/20 Bayron Barclay DO [address] [place] [address] [facility], [facility] [address] [place], [place] [id number] Medical Oncologist/Marketing Information Analyst Hematology and Oncology 04/28/23
--- OUTSIDE RECORDS SUMMARY | 2024-10-26 16:51 | XMS_ITS | Encounter Summary ---
Author Organization [facility] Healthcare Address [address] [place] [address] Care Team Providers Care Route Delivery Service Driver Name Role Phone Amarilis Mcfarlane MD Primary Care Provi julito Bayron Barclay DO Unavailable [phone] Encounter Details Date Type Department Care Team (Late st Contact Info) Description 12/18/2023 Telephone [facility] Family Medicine [address] [address] Amarilis Mcfarlane MD [address] [place] [phone] Social History Tobacco Use Types Packs/Day Years Used Date Smoking Tobacco: Never Smokeless Tobacco: Never Alcohol Use Standard Drinks/Week Comments No 0 (1 standard drink = 0.6 oz pur e alcohol) AUDIT-C Answer Date Recorded Q1: How often do you have a drink containing alcohol? Never 11/13/2023 Q2: How many drinks containi ng alcohol do you have on a typical day when you are drinking? Patient does not drink Q3: How often do you have si x or more drinks on one occasion? 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 SERVICE ATTENDANT Gender Identity Female 06/06/2023 10:34 AM CDT Sexual Orientation Straight 06/06/2023 10 :34 AM CDT documented as of this encounter Plan of Treatment Not on file documented as of this encounter Visit Diagnoses Not on filedocumented in this encounter Additional Health Concerns Infection Onset Date Last Indicated Resolved Time COVID: Suspected 05/25/2024 05/25/2024 05/25/2024 9:56 AM CDT documented as of this encounter Care Teams Route Delivery Service Driver Relationship Specialty Start Date End Date Amarilis Mcfarlane MD [address] [place] [address] PCP - General Family Medicine 06/29/20 Bayron Barclay DO [address] [place] [address] MEDICAL ONCOLOGY, [facility] [address] [place] [address] Medical Oncologist/Production Broacher Hematology and Oncology 04/28/23 documented as of this encounter
--- OUTSIDE RECORDS SUMMARY | 2024-10-26 16:51 | XMS_ITS | Clinical Summary ---
Author Organization [facility] Address [address] [place] [address] Care Team Providers Care Note Keeper Name Role Phone Amarilis Mcfarlane MD Primary Care Provi julito Bayron Barclay DO Unavailable [phone] Allergies Active Allergy Reactions Criticality Noted Date [...] 1 tablet (112 mcg total) by mouth scrap metal burner before breakfast 90 tablet 1 5 Active [...] 10/04/2024 Assessment & Plan (10/04/2024 2:48 PM DIRECTOR LEARNING AND DEVELOPMENT): BMI Follow-up includes: education provided. Pericardial effusion 08/19/2024 Mixed hyperlipidemia 07/22/2024 Torsades de pointes 02/05/2024 Postoperative hypothyroidism 01/01/2024 Assessment & Plan (10/04/2024 2:50 PM DIRECTOR LEARNING AND DEVELOPMENT): Chronic. Elevated mildly at last 2 lab checks. - Increase levothyroxine from 100-112 mcg daily - Repeat labs in 6 weeks Tingling in extremities 01/01/2024 Bilateral carpal tunnel syndrome 01/01/2024 Sphincter of Oddi dysfunction 07/22/2023 Overview (07/22/2024): Followed by GI Primary hypertension 05/26/2023 Assessment & Plan (10/04/2024 2:52 PM DIRECTOR LEARNING AND DEVELOPMENT): Chronic. Mostly controlled. Patient's average readings from [...] week. Assessment & Plan (07/22/2023 3:39 PM DIRECTOR LEARNING AND DEVELOPMENT): Chronic, stabe Continue current regimen Assessment & Plan (06/10/2023 11:28 AM CDT): Chronic, improved Continue losartan Continue clonidine only if needed Continue to follow with Cardiology Update me with any changes Call for questions Low bone mass 05/30/2022 Assessment & Plan (10/04/2024 2:49 PM DIRECTOR LEARNING AND DEVELOPMENT): Chronic. Discussed recommendation for 500 mg of calcium daily or 3 servings of calcium in diet daily. Discussed recommendation for vitamin-D 6677-9812 international units daily. She may try to get this all from a multivitamin. Assessment & Plan (07/22/2023 3:39 PM DIRECTOR LEARNING AND DEVELOPMENT): Chronic, stable Continue vitamin d Follow up testing ordered Assessment & Plan (05/30/2022 10:13 AM CDT): Continue vitamin d, calcium Strength training, walking H/O cardiac arrest 11/13/2021 Assessment & Plan (07/22/2023 3:37 PM DIRECTOR LEARNING AND DEVELOPMENT): Chronic, stable Managed by cardiology Update me with any changes or concerns Assessment & Plan (05/30/2022 10:11 AM CDT): Following with cardiology Other headache syndrome 10/31/2021 Assessment & Plan (07/22/2023 3:39 PM DIRECTOR LEARNING AND DEVELOPMENT): Acute, resolved Continue to monitor Update me if anything changes or worsens Assessment & Plan (05/30/2022 10:14 AM CDT): Occasional headaches Keep track of headaches Avoid triggers Update me if her symptoms change or worsen Assessment & Plan (10/31/2021 1:02 PM DIRECTOR LEARNING AND DEVELOPMENT): Differential migraine versus cluster versus other With [...] 05/11/2021 Assessment & Plan (07/22/2023 3:40 PM DIRECTOR LEARNING AND DEVELOPMENT): Chronic, stable Managed by cardiology S/p ICD placement Assessment & Plan (05/30/2022 10:13 AM CDT): S/p pacemaker Continue to follow with cardiology PVC's (premature ventricular contractions) 05/11 Assessment & Plan (07/22/2023 3:40 PM DIRECTOR LEARNING AND DEVELOPMENT): Chronic, stable Managed by cardiology Update me with any changes or concerns Assessment & Plan (05/30/2022 10:13 AM CDT): S/p pacemaker Continue to follow with cardiology Nonsustained ventricular tachycardia 05/11/2021 Assessment & Plan (07/22/2023 3:39 PM DIRECTOR LEARNING AND DEVELOPMENT): Chronic, stable Managed by cardiology S/p ICD placement Assessment & Plan (05/30/2022 10:13 AM CDT): S/p pacemaker Continue to follow with cardiology Family history of heart disease 05/11/2021 Assessment & Plan (07/22/2023 3:29 PM DIRECTOR LEARNING AND DEVELOPMENT): Chronic, stable Managed by cardiology Continue current regimen Assessment & Plan (05/30/2022 10:10 AM CDT): Chronic, stable Continue to follow with cardiology Encounter for Medicare annual wellness exam 04/08 Overview (07/22/2024): Encouraged healthy diet and activity Please look into a power of head of insight or living will Health Maintenance: Last mammogram:07/31, 08/01- WNL Last DEXA: 01/27- Low bone mass-ordered Last colonoscopy: 06/28-repeat in 10 years Last Tdap: encouraged Last pneumonia: up to date Last Shingrix: reviewed Last Flu: reviewed Last COVID: reviewed Assessment & Plan (07/22/2024 8:04 AM DIRECTOR LEARNING AND DEVELOPMENT): Encouraged healthy diet and activity Please look into a power of head of insight or living will Health Maintenance: Last mammogram:07/31, 08/01- WNL Last DEXA: 01/27- Low bone mass-ordered Last colonoscopy: 06/28-repeat in 10 years Last Tdap: encouraged Last pneumonia: up to date Last Shingrix: reviewed Last Flu: reviewed Last COVID: reviewed Assessment & Plan (07/22/2023 3:28 PM DIRECTOR LEARNING AND DEVELOPMENT): Encouraged healthy diet and activity Please look into a power of head of insight or living will Health Maintenance: Last mammogram:07/31- WNL Last DEXA: 5/22- Low bone mass Last colonoscopy: 06/28-repeat in 10 years Last Tdap: encouraged Last pneumonia: up to date Last Shingrix: reviewed Last Flu: reviewed Last COVID: reviewed Assessment & Plan (05/30/2022 10:09 AM CDT): Encouraged healthy diet and activity Please look into a power of head of insight or living will Health Maintenance: Last mammogram:scheduled Last DEXA: 2020- Low bone mass Last colonoscopy: 06/28-repeat in 10 years Last Tdap: encouraged Last pneumonia: due second one Last Shingrix: reviewed Last Flu: reviewed Last COVID: reviewed Assessment & Plan (04/25/2021 2:08 PM CDT): Encouraged healthy diet and activity Please look into a power of head of insight or living will Wear sun screen, seat belts Health Maintenance: Last mammogram:scheduled Last DEXA: ordered Last Pap: today Last colonoscopy: referral placed Last Tdap: encouraged Last pneumonia/Prevnar: reviewed Last Shingrix: reviewed Last Flu: up to date Last COVID: up to date GERD (gastroesophageal reflux disease) Assessment & Plan (07/22/2023 3:36 PM DIRECTOR LEARNING AND DEVELOPMENT): Chronic, stable Continue prilosec for now Consider [...] untreated Assessment & Plan (10/31/2021 1:01 PM DIRECTOR LEARNING AND DEVELOPMENT): With esophagitis and gastritis on her CT scan Continue Prilosec b.i.d. 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 correction officer Update me after the visit Assessment & Plan (04/25/2021 12:16 PM CDT): Continue omeprazole Reviewed the risk and benefits of medication Grief 08/01/2020 Assessment & Plan (07/22/2023 3:37 PM DIRECTOR LEARNING AND DEVELOPMENT): Chronic, stable Continue supportive care Assessment & Plan (05/30/2022 10:11 AM CDT): Improved, doing well with supportive care Assessment & Plan (04/25/2021 12:15 PM CDT): Patient with a significant amount of loss over the last year Continue supportive care Update me if her mood worsens or changes Assessment & Plan (08/01/2020 1:22 PM DIRECTOR LEARNING AND DEVELOPMENT): Some of her symptoms may be related to her most recent loss- weight loss Continue to use the support around her Update me with any concerns ICD (implantable cardioverter-defibrillator) in place 05/27/2016 Overview (06/19/2022): Medtronic Dual ICD-Evera. Dx; Cardiac Arrest, [place]. DOI 07/18/2014-Dr Bell. Carelink remote is not working. Patient prefers office checks Q3 months. Assessment & Plan (07/22/2023 3:38 PM DIRECTOR LEARNING AND DEVELOPMENT): Chronic, stable Managed by cardiology Assessment & [...] 06/17/2015 Assessment & Plan (07/22/2023 3:38 PM DIRECTOR LEARNING AND DEVELOPMENT): Chronic, stable Managed by oncology Continue to monitor Assessment & Plan (05/30/2022 10:12 AM CDT): Chronic, stable Follows with oncology Continue synthroid Assessment & Plan (04/25/2021 2:10 PM CDT): Continue levothyroxine at current dose Continue to follow with Dr Barclay Resolved Problems Problem Noted Date Diagnosed Date Resolved Date Hypokalemia 06/02/2023 07/22/2024 Assessment & Plan (07/22/2023 3:38 PM DIRECTOR LEARNING AND DEVELOPMENT): Chronic,s table Continue replacement History of torsades de pointes 05/08/2021 07/22/2024 Assessment & Plan (07/22/2023 3:38 PM DIRECTOR LEARNING AND DEVELOPMENT): Chronic, stable Managed by cardiology S/p pacemaker Assessment & Plan (05/30/2022 10:12 AM CDT): S/p pacemaker Continue to follow with cardiology Allergic rhinitis 04/25/2021 07/22/2024 Assessment & Plan (07/22/2023 3:29 PM DIRECTOR LEARNING AND DEVELOPMENT): Chronic, stable Asymptomatic Continue to monitor Assessment & Plan (05/30/2022 10:09 AM CDT): Chronic, stable Assessment & Plan (04/25/2021 2:11 PM CDT): Continue flonase Thyroid cancer ([facility]/HCC) 04/17/2018 Cardiac arrest 05/27/2016 11/13/2021 Assessment & Plan (04/25/2021 12:15 PM CDT): Continue to follow with Cardiology ICD in place Update me with any changes Assessment & Plan (01/13/2020 1:11 PM CDT): No indication for antiarrhythmics. Continue Inderal as needed for palpitations Assessment & Plan (01/07/2019 3:45 PM CDT): Intraop. Etiology unclear Defibrillator discharge 06/17/2015 09/0 11/2020 Encounters Date Type Department Care Team Description 10/04/2024 1:30 PM DIRECTOR LEARNING AND DEVELOPMENT Office Visit [facility] [address] [phone] Angela Garrison PA Primary hypertension (Primary Dx); Postoperative hypothyroidism; Low serum calcium; Low bone mass; BMI 28.0-28.9,adult; Low serum vitamin B12; Medication monitoring encounter; Mixed hyperlipidemia 08/23/2024 3:00 PM DIRECTOR LEARNING AND DEVELOPMENT Ancillary Procedure [facility] [address] [place] [address] [place] [phone] Pericardial effusion 08/23/[address] [phone] Claude Milton MD 08/19/2024 8:30 AM DIRECTOR LEARNING AND DEVELOPMENT Office Visit [facility] [address] [place] [address] [place] [phone] Claude Milton MD ICD (implantable cardioverter-defibrill ator) in place (Primary Dx); Pericardial effusion; PVC's (premature ventricular contractions); Nonsustained ventricular tachycardia (HCC); H/O cardiac arrest; Primary hypertension; Torsades de pointes (HCC); Mixed hyperlipidemia 08/19/2024 Telephone [facility] [address] [place] [phone] Amarilis Mcfarlane MD 08/19/2024 Orders Only [facility] [address] [facility] 8th [place] [address] [place] [address] Brandy Jj MD ICD (implantable cardioverter-defibrill ator) in place (Primary Dx) 08/19/2024 Telephone [facility] [address] [facility] 8th [place] [address] [place] [address] Zoya Bourne 08/12/2024 Orders Only [facility] [address] [phone] Amarilis Mcfarlane MD Hematuria, unspecified type (Primary Dx) 08/12/2024 Telephone [facility] [address] [phone] Amarilis Mcfarlane MD 08/11/2024 Telephone [facility] [address] [phone] Amarilis Mcfarlane MD 08/06/2024 8:30 AM DIRECTOR LEARNING AND DEVELOPMENT Ancillary Procedure [facility] [address] [place] [address] ICD (implantable cardioverter-defibrill ator) in place; Torsades de pointes (HCC); QT prolongation from Last 3 Months Immunizations Immunization Administration Dates Next Due Influenza, [...] Patient Refused) Varicella 06/10/2023(Deferred: Patient Ref used) Surgical History Surgery Date Site/Laterality Comments COLONOSCOPY TONSILLECTOMY THYROIDECTOMY APPENDECTOMY Medical History Medical History Date Comments Thyroid cancer (HCC) Thyroid cancer (HCC) Cardiac arrhythmia Hx of thyroid cancer QT prolongation 2014 [facility], reult ing in [place] cardiac arrest Cardiac arrest (HCC) 2014 [place] ICD (implantable cardioverter-defibrillator) in place 2014 Medtronic Hypertension Varicella Kidney cysts Right cysts gerardo osuna. Allergic rhinitis 04/25/2021 History of torsades de pointes 05/08/2021 Family History Medical History Relation Name Comments Cardiomyopathy Brother 1 ate 63, CAD, CABG, stents, Diabetes Brother 1 Hypertension Brother 2 Hypertension Brother 3 Lymphoma Brother 3 Coronary artery disease Father Diabetes Father Heart disease Father Sudden Cardiac Father Presume d to have heart dz; no h/o CAD. Heart attack Mother age 90 of [place] Hypertension Mother Breast cancer Sister Relation Name Status Comments Brother 1 (Age 63) Brother 2 Alive Brother 3 Alive Father (Age 79) Mother Sister Alive Social History Tobacco Use Types Packs/Day Years [...] on file Legal Sex Female 7:51 AM DIRECTOR LEARNING AND DEVELOPMENT Gender Identity Female 06/06/2023 10:34 AM CDT Sexual Orientation Straight 06/06/2023 10 :34 AM CDT Obstetrics History Para Term AB IAB SAB Ectopic Multiple Livin g Live Births 3 3 3 Date Outcome GA Total Labor Labor/2nd/3rd Weight Sex Type Anes PTL Fela A1 A5 Name Clin Term Term Term Last Filed Vital Signs Vital Sign Reading Time Taken Comments Blood Pressure 124/82 10/04/2024 1:11 PM DIRECTOR LEARNING AND DEVELOPMENT Pulse 78 10/04/2024 1:11 PM DIRECTOR LEARNING AND DEVELOPMENT Temperature 36.7 C (98.1 F) 10/04/2024 1:11 PM DIRECTOR LEARNING AND DEVELOPMENT Respiratory Rate 16 10/04/2024 1:11 PM DIRECTOR LEARNING AND DEVELOPMENT Oxygen Saturation 98% 10/04/2024 1:11 PM DIRECTOR LEARNING AND DEVELOPMENT Inhaled Oxygen Concentration - - Weight 78.8 kg (173 lb 12.8 oz) 10/04/2024 1:11 PM DIRECTOR LEARNING AND DEVELOPMENT Height 165.1 cm (5' 5 ) 10/04/2024 1:11 PM DIRECTOR LEARNING AND DEVELOPMENT Body Mass Index 28.92 10/04/2024 1:11 PM DIRECTOR LEARNING AND DEVELOPMENT Plan of Treatment Health Maintenance Due Date Last Done Comments Hepatitis B Screening 1974 Zoster Vaccine (1 of 2) 2006 Osteoporosis Screening-Bone Density Scan 02/01/2024 01/31/2022 Covid-19 Vaccine (2023-2 5 season) 2024 09/15/2023, 11/13/2020, 10/17/2020 Breast Cancer Screening-Mammogram 07/16/2025 07/16/2024, 07/15/2023, 07/12/2022, Additional history exists Fall Risk Assessment 07/22/2025 07/22/2024, 07/22/2023, 05/30/2022, Additional history exists Well Visit 65+ 07/22/2025 07/22/2024, 07/09, 07/22/2023, Additional history exists Depression Screening 10/04/2025 10/04/2024, 07/22/2024, 07/22/2024, Additional history exists Colon Cancer Screening-Colonoscopy 06/27/2031 06/27/2021 DTaP/Tdap/Td Vaccine (2 - Td or Tdap) 09/13/2033 09/13/2023, 09/03/2023 Colon Cancer Screening-CT Colonography Discontinued 06/27/2021 Colon Cancer Screening-DNA Stool Discontinued 06/27/20 Colon Cancer Screening-FIT Discontinued 06/27/2021 Colon Cancer Screening-Sigmoidoscopy Discontinued 06/27/2021 Hepatitis C Screening Completed 06/04/2022 Pneumococcal vaccine 65+ Completed 12/09/2022, 10/10 Influenza Vaccine Completed 06/18/2024, , 06/03/2022, Additional history exists Procedures Procedure Name Priority Date/Time Associated Diagnosis Comments T4, FREE Routine 09/14/2024 8:10 AM DIRECTOR LEARNING AND DEVELOPMENT COMPREHENSIVE METABOLIC PANEL Routine 09/14/2024 8:10 AM DIRECTOR LEARNING AND DEVELOPMENT Primary hypertension Calculus of bile duct without cholecystitis and without obstruction THYROID FUNCTION CASCADE Routine 09/14/2024 8:10 AM DIRECTOR LEARNING AND DEVELOPMENT Postoperative hypothyroidism TRANSTHORACIC ECHO (TTE) COMPLETE W DOPPLER/CF WO CONTRAST Routine 08/23/2024 4:18 PM DIRECTOR LEARNING AND DEVELOPMENT Pericardial effusion REFLEXIVE URINE CULTURE Routine 08/19/2024 10:08 AM DIRECTOR LEARNING AND DEVELOPMENT URINALYSIS AND REFLEX TO MICROSCOPIC AND CULTURE Routine 08/19/2024 10:08 AM DIRECTOR LEARNING AND DEVELOPMENT Hematuria, unspecified type DEVICE CHECK - REMOTE Routine 08/09/2024 9:09 AM DIRECTOR LEARNING AND DEVELOPMENT ICD (implantable cardioverter-defibri llator) in place Torsades de pointes (HCC) QT prolongation SCREENING MAMMOGRAM BILATERAL W ISAC Schedule Routine, Read Routine (OP Routine) 07/16/2024 9:37 AM DIRECTOR LEARNING AND DEVELOPMENT Screening mammogram, encounter for HEPATITIS C ANTIBODY Routine 06/04/2022 9:22 AM CDT Need for hepatitis C screening test DEXA AXIAL SKELETON BONE DENSITY 1 OR MORE SITES Schedule Routine, Read Routine (OP Routine) 01/31/2022 9:03 AM CDT Postmenopausal status COLONOSCOPY Routine 06/27/2021 from Last 3 Months or Most Recently Relevant to Health Maintenance Results * (ABNORMAL) Thyroid Function K[place]y (09/14/2024 8:10 AM DIRECTOR LEARNING AND DEVELOPMENT) TSH 4.89(H) 0.40 - 4.50 mIU/L [facility] Blood 09/14/2024 8:10 AM DIRECTOR LEARNING AND DEVELOPMENT 09/14/2024 8:10 AM DIRECTOR LEARNING AND DEVELOPMENT Amarilis Mcfarlane MD LAB BLOOD ORDERABLE S Final Result Performing Organization Address [facility] Co de Phone Number [facility] [address] [place] [address] * T4, free (09/14/2024 8:10 AM DIRECTOR LEARNING AND DEVELOPMENT) Free T4 1.3 0.8 - 1.8 ng/dL [facility] 09/14/2024 8:10 AM DIRECTOR LEARNING AND DEVELOPMENT 09/14/2024 8:10 AM DIRECTOR LEARNING AND DEVELOPMENT Amarilis Mcfarlane MD LAB BLOOD ORDERABLE S Final Result Performing Organization Address [facility] de Phone Number [facility] [address] [place] [address] * (ABNORMAL) Comprehensive metabolic panel (09/14/2024 8:10 AM DIRECTOR LEARNING AND DEVELOPMENT) Pathologist [facility] Glucose 81 65 - 99 mg/dL [facility] [...] [facility] Blood 09/14/2024 8:10 AM DIRECTOR LEARNING AND DEVELOPMENT 09/14/2024 8:10 AM DIRECTOR LEARNING AND DEVELOPMENT us Amarilis Mcfarlane MD LAB BLOOD ORDERABLE S Final Result [facility] [address] [place] [address] * TRANSTHORACIC ECHO (TTE) COMPLETE W DOPPLER/CF WO CONTRAST (08/23/2024 4:18 PM DIRECTOR LEARNING AND DEVELOPMENT) Anatomical Region Laterality Modality Ultrasound 08/23/2024 3:28 PM DIRECTOR LEARNING AND DEVELOPMENT Narrative 08/24/2024 11:46 AM DIRECTOR LEARNING AND DEVELOPMENT [facility] [address] [facility] [address] [address] [address] [facility] [address] [address] P:[phone] P:[phone] Echocardiographic Report Patient Name: YASMINE MENJIVAR M : 1955 Study Date: 08/23/2024 3:28:02 PM Gender: F Tech: DEA Location: [facility] Provider: CLAUDE MILTON Height(Cm): 165 BSA: [...] FINDINGS: Interpretation Site: Exam was interpreted at [facility]. Left Ventricle: Ejection Fraction is visually estimated [...] By: Dr. Ayaan Mitchell 08/24/2024 11:46:08 AM DIRECTOR LEARNING AND DEVELOPMENT 62 Procedure Note Ayaan Mitchell MD - 08/24/2024 [facility] [address] [facility] [address] [address] [address] [facility] [address], [place] [address] P:[phone] P:[phone] Echocardiographic Report Patient Name: YASMINE MENJIVAR M : 1955 Study Date: 08/23/2024 3:28:02 PM Gender: F Tech: Location: [facility] Provider: CLAUDE MILTON Height(Cm): 165 BSA: [...] FINDINGS: Interpretation Site: Exam was interpreted at [facility]. Left Ventricle: Ejection Fraction is visually estimated [...] By: Dr. Ayaan Mitchell 08/24/2024 11:46:08 AM DIRECTOR LEARNING AND DEVELOPMENT 62 us Claude Milton MD CV ECHO PROCEDURES Milagros l Result * REFLEXIVE URINE CULTURE (08/19/2024 10:08 AM DIRECTOR LEARNING AND DEVELOPMENT) [facility]rine culture [facility] Comment:NO CULTURE INDICATED 08/19/2024 10:0 8 AM DIRECTOR LEARNING AND DEVELOPMENT 08/19/2024 10:08 AM DIRECTOR LEARNING AND DEVELOPMENT us Amarilis Mcfarlane MD LAB MICROBIOLOGY - GENERAL ORDERABLES Final Result [facility] [address] [place] [address] * Urinalysis reflex to microscopic and culture Urine (08/19/2024 10:08 AM DIRECTOR LEARNING AND DEVELOPMENT) Color, ur YELLOW YELLOW [facility] Appearance, ur CLEAR CLEAR [facility] Specific gravity 1.016 1.001 - 1.035 [facility] pH, ur 5.5 5.0 - 8.0 [facility] [...] NONE SEEN < OR = 2 /HPF [facility] Epithelial cells, squamous, ur NONE SEEN < OR = 5 /HPF [facility] Bacteria, ur, quant NONE SEEN NONE SEEN /HPF [facility] Hyaline cast NONE SEEN NONE SEEN /LPF [facility] Note [facility] Comment: This urine was analyzed for the presence of WBC, RBC, bacteria, casts, and other formed elements. Only those elements seen were reported. Urine 08/19/2024 10:0 8 AM DIRECTOR LEARNING AND DEVELOPMENT 08/19/2024 10:08 AM DIRECTOR LEARNING AND DEVELOPMENT us Amarilis Mcfarlane MD LAB MICROBIOLOGY - GENERAL ORDERABLES Final Result Performing Organization Address City/State/[facility] Co de Phone Number [facility] [address] [place] [address] * DEVICE CHECK - REMOTE (08/09/2024 9:09 AM DIRECTOR LEARNING AND DEVELOPMENT) Anatomical Region Laterality Modality Other Narrative 09/10/2024 8:46 AM DIRECTOR LEARNING AND DEVELOPMENT Table formatting from the original result was [...] follow up scheduled with Dr. Muhammad at [facility]. Yun Viera RN Addendum: 7 months to ZARINA Increase in RV capture threshold since previous. Review of graft shows gradual increase over the last 6-8 months, continuing to increase from a baseline of approximately 0.5, increasing then to 1, now to 1.5. Other lead metrics are stable Eliceo Montanez MD Cardiac Electrophysiology Eliceo Montanez MD CV CARDIAC SERVICES [facility] Final Result * Screening Mammogram Bilateral W [place] (07/16/2024 9:37 AM DIRECTOR LEARNING AND DEVELOPMENT) Anatomical Region Laterality Modality Breast Bilateral Mammography Impressions 07/16/2024 5:12 PM DIRECTOR LEARNING AND DEVELOPMENT BI-RADS ATLAS category (overall): 1 - Negative There is no mammographic evidence of malignancy. A 1 year screening mammogram is recommended. The patient has been or will be contacted. We recommend annual screening mammography for women at average risk of breast cancer beginning at age 40, based on guidelines of the [employer] (ACR Practice Parameter for the Performance of Screening and Diagnostic Mammography) and [employer]. For women with and elevated risk of breast cancer, please refer to the ACR Practice Parameter for specific screening recommendations. The patient will be entered into a reminder system with a target due date of 1 year for her next screening exam. Narrative 07/16/2024 5:12 PM DIRECTOR LEARNING AND DEVELOPMENT Screening Mammogram Bilateral W Isac: 07/16/24 The [...] a test for HCV RNA (test code 81636) is suggested. For additional information please refer to http://education.PhotoRocket.FluGen/faq/MEQ27d5 (This link is being provided for informational/ educational purposes only.) Blood 06/04/2022 9:22 AM CDT 06/04/2022 9:25 AM CDT Narrative [facility] - 06/05/2022 10:11 AM CDT FASTING:YES FASTING: YES Amarilis Mcfarlane MD LAB MICROBIOLOGY - GENERAL ORDERABLES Final Result [facility] [address] [place] [address] * Dexa Axial Skeleton Bone Density 1 or 2 Site (01/31/2022 9:03 AM CDT) Anatomical Region Laterality Modality Body N/A Mammography 01/31/2022 3:21 PM CDT Narrative 01/31/2022 3:21 PM CDT EXAM DESCRIPTION: DEXA AXIAL SKELETON BONE DENSITY 1 OR MORE SITES REASON FOR STUDY: 66 y/o year old F with given history of screening. Silver Steward/Model: [place] A (S/N [id number]) CLINICAL INFORMATION: Current height: 65 inches Maximum [...] Amrita Dennison M.D. TB: TB Report ID: [id number] Reading Location: [facility] Procedure Note MiddletonAmrita MD - 01/31/2022 EXAM DESCRIPTION: DEXA AXIAL SKELETON BONE DENSITY 1 OR MORE SITES REASON FOR STUDY: 66 y/o year old F with given history ofscreening. Silver Steward/Model: [place] A (S/N [id number]) CLINICAL INFORMATION: Current height: 65 inches Maximum [...] Amrita Dennison M.D. TB: TB Report ID: [id number] Reading Location: [id number] Amarilis Mcfarlane MD IMG DXA PROCEDURES Final Result * Colonoscopy (06/27/2021) Anatomical Region Laterality Modality Other Historical Provider ENDOSCOPY PROCEDURES Milagros l Result from Last 3 Months or Most Recently Relevant to Health Maintenance [place] [address] [place] [id number] [employer]IC[employer] [place] [address] Care Teams Note Keeper Relationship Specialty Start Date End Date Amarilis Mcfarlane MD [facility] [address] [place] [address] PCP - General Family Medicine 06/29/20 Bayron Barclay DO [address] [place] [address] MEDICAL ONCOLOGY, [address] [address] Medical Oncologist/Gauge Inspector Hematology and Oncology 04/28/23
[2024-10-26 16:57] VITALS: BP 156/81; PULSE 86; RESP 20; TEMP 36.4; O2SAT 100
[2024-10-26 17:17] LABS: Basophils Percent Auto 0.5 % (0.2-1.2); Eosinophils Absolute Auto 0.1 K/mm3 (0-0.3); Eosinophils Percent Auto 1.6 % (0-4.4); Hematocrit 42.4 % (37.0-47.0); Hemoglobin 14.2 g/dL (12.0-15.0); Immature Granulocyte Absolute 0.02 K/mm3 (0.00-0.031); Immature Granulocyte Percent A 0.3 % (0-0.5); Lymphocytes Absolute Auto 1.52 K/mm3 (0.9-3.2); Lymphocytes Percent Auto 19.2 % (18.3-44.2); Mean Corpuscular HGB Conc 33.5 g/dl (32-36); Mean Corpuscular Hemoglobin 30.3 pg (26-34); Mean Corpuscular Volume 90.6 fl (80-100); Mean Platelet Volume 10.7 fl (7.4-10.4); Monocytes Absolute Auto 0.6 K/mm3 (0.1-0.6); Monocytes Percent Auto 7.5 % (2.6-8.5); Neutrophils Absolute Auto 5.6 K/mm3 (1.3-6.7); Neutrophils Percent Auto 70.9 % (45.5-73.1); Platelet Count Result 199 k/mm3 (150-375); Red Blood Count 4.68 M/mm3 (4.2-5.4); Red Cell Distribution Width 13.4 % (11.5-14.5); White Blood Count 7.9 K/mm3 (4.5-10.0)
[2024-10-26 17:27] LABS: Alanine Aminotransferase 17 U/L (6-35); Albumin Level 4.7 g/dL (3.5-5.1); Alkaline Phosphatase 102 U/L (38-126); Anion Gap 14 mmol/L (4-12); Aspartate Amino Transferase 23 U/L (14-36); Blood Urea Nitrogen 18 mg/dL (7-17); Calcium 9.2 mg/dL (8.4-10.2); Carbon Dioxide 22 mmol/L (22-30); Chloride 105 mmol/L (98-107); Estimated CRCL calculation 49 ml/min; Estimated Glomerular Filt Rate > 60; Glucose 108 mg/dL (65-110); Lipase 165 U/L (23-300); Potassium 3.8 mmol/L (3.4-5.0); Sodium 141 mmol/L (137-145)
[2024-10-26 17:29] LABS: Prothrombin Time 13.3 Seconds (11.1-14.7)
[2024-10-26 17:30] LABS: Partial Thromboplastin Time 30.6 Seconds (22.3-36.8)
[2024-10-26 17:39] LABS: Troponin I < 0.012 ng/mL (0.000-0.034)
[2024-10-26 18:07] VITALS: O2SAT 100
[2024-10-26 18:10] VITALS: BP 161/90; PULSE 76; RESP 16; TEMP 36.4; O2SAT 100
[2024-10-26] MEDS: ASPIRIN 81 MG CHEWABLE TABLET 324 MG PO (18:14)
--- OUTSIDE RECORDS SUMMARY | 2024-10-26 18:40 | XMS_ITS | Encounter Summary ---
Author Organization [facility] Facility Care Team Providers Care 7Th Grade Teacher Name Role Phone Brielle Mack MD Primary Care Provider [phone] Amarilis Mcfarlane MD Primary Care Provi julito Bayron Barclay DO Unavailable [phone] Encounter Details Date Type Department Care Team (Latest Contact Info) Description 05/27/2016 Orders Only [facility] CLINCONV ProviderIvonne MD [address] [place] [address] Social History Tobacco Use Types Packs/Day Years Used Date Smoking Tobacco: Never Assessed Comments Unknown Sex and Gender Information Value Date Recorded Sex Assigned at Not on file Legal Sex Female 7:51 AM CREDIT RISK OFFICER Gender Identity Female 06/06/2023 10:34 AM CDT [...] COVID: Suspected 09/13/2021 09/13/2021 09/14/2021 12:34 AM CREDIT RISK OFFICER COVID: Suspected 05/25/2024 05/25/2024 05/25/2024 9:56 AM CDT documented as of this encounter Care Teams 7Th Grade Teacher Relationship Specialty Start Date End Date Brielle Mack MD PCP - General 10/23/17 06/28/20 Amarilis Mcfarlane MD [facility] [address] [place] [id number] PCP - General Family Medicine 06/29/20 Bayron Barclay DO [address] [place] [address] MEDICAL ONCOLOGY, [facility] [address] [place], [place] [address] Medical Oncologist/Steam Fitter Helper Hematology and Oncology 04/28/23 documented as of this encounter
--- OUTSIDE RECORDS SUMMARY | 2024-10-26 18:40 | XMS_ITS | Encounter Summary ---
Author Organization [facility] Facility Care Team Providers Care Invoicing Specialist Name Role Phone Brielle Mack MD Primary Care Provider Amarilis Mcfarlane MD Primary Care Provi julito Bayron Barclay DO Unavailable [phone] Encounter Details Date Type Department Care Team (Latest Contact Info) Description 11/11/2016 Orders Only [facility] CLINCONV ProviderIvonne MD [address] [place] [address] Social History Tobacco Use Types Packs/Day Years Used Date Smoking Tobacco: Never Assessed Comments Unknown Sex and Gender Information Value Date Recorded Sex Assigned at Not on file Legal Sex Female 7:51 AM FUDGER Gender Identity Female 06/06/2023 10:34 AM CDT Sexual Orientation Straight 06/06/2023 10 :34 AM CDT documented as of this encounter Plan of Treatment Not on file documented as of this encounter Procedures Procedure Name Priority Date/Time Associated Diagnosis Comments CARDIOLOGY REPORT 11/13/2016 12: 00 AM FUDGER documented in this encounter Results * CARDIOLOGY REPORT (11/13/2016 12:00 AM FUDGER) Anatomical Region Laterality Modality Other Narrative 11/13/2016 12:00 AM FUDGER Ordered by an unspecified provider. Historical Provider [facility] YAMILET ZHANG Final Result documented in this encounter Visit Diagnoses Not on filedocumented in this encounter Additional Health Concerns Infection Onset Date Last Indicated Resolved Time COVID: Suspected 09/13/2021 09/13/2021 09/14/2021 12:34 AM FUDGER COVID: Suspected 05/25/2024 05/25/2024 05/25/2024 9:56 AM CDT documented as of this encounter Care Teams Invoicing Specialist Relationship Specialty Start Date End Date Brielle Mack MD PCP - General 10/23/17 06/28/20 Amarilis Mcfarlane MD [facility] [address] [place], [place] [id number] PCP - General Family Medicine 06/29/20 Bayron Barclay DO [address] [place] [address] MEDICAL ONCOLOGY, [facility] [place] [address] Medical Oncologist/Water Treatment Plant Mechanic Hematology and Oncology 04/28/23 documented as of this encounter
--- OUTSIDE RECORDS SUMMARY | 2024-10-26 18:40 | XMS_ITS | Encounter Summary ---
Author Organization [facility] Facility Care Team Providers Care Operation Shift Supervisor Name Role Phone Brielle Mack MD Primary Care Provider [phone] Amarilis Mcfarlane MD Primary Care Provi julito Bayron Barclay DO Unavailable [phone] Encounter Details Date Type Department Care Team (Latest Contact Info) Description 12/01/2017 Orders Only [facility] CLINCONV ProviderIvonne MD [address] [place] [address] Social History Tobacco Use Types Packs/Day Years Used Date Smoking Tobacco: Never Assessed Comments Unknown Sex and Gender Information Value Date Recorded Sex Assigned at Not on file Legal Sex Female 7:51 AM MANAGER INTEGRATED Gender Identity Female 06/06/2023 10:34 AM CDT [...] COVID: Suspected 09/13/2021 09/13/2021 09/14/2021 12:34 AM MANAGER INTEGRATED COVID: Suspected 05/25/2024 05/25/2024 05/25/2024 9:56 AM CDT documented as of this encounter Care Teams Operation Shift Supervisor Relationship Specialty Start Date End Date Brielle Mack MD PCP - General 10/23/17 06/28/20 Amarilis Mcfarlane MD [address] [place] [address] PCP - General Family Medicine 06/29/20 Bayron Barclay DO [address] [place] [address] MEDICAL ONCOLOGY, [facility] [address] [place] [address] Medical Oncologist/Model And Mold Maker Plaster Hematology and Oncology 04/28/23 documented as of this encounter
--- OUTSIDE RECORDS SUMMARY | 2024-10-26 18:40 | XMS_ITS | Encounter Summary ---
Author Organization [facility] Facility Care Team Providers Care Channel Opener Name Role Phone Brielle Mack MD Primary Care Provider Amarilis Mcfarlane MD Primary Care Provi julito Bayron Barclay DO Unavailable [phone] Encounter Details Date Type Department Care Team (Latest Contact Info) Description 08/29/2016 Orders Only [facility] CLINCONV ProviderIvonne MD [address] [place] [address] Social History Tobacco Use Types Packs/Day Years Used Date Smoking Tobacco: Never Assessed Comments Unknown Sex and Gender Information Value Date Recorded Sex Assigned at Not on file Legal Sex Female 7:51 AM LABORATORY MECHANIC HELPER Gender Identity Female 06/06/2023 10:34 AM CDT Sexual Orientation Straight 06/06/2023 10 :34 AM CDT documented as of this encounter Plan of Treatment Not on file documented as of this encounter Procedures Procedure Name Priority Date/Time Associated Diagnosis Comments CARDIOLOGY REPORT 09/04/2016 12: 00 AM LABORATORY MECHANIC HELPER CARDIOLOGY REPORT 08/29/2016 12: 00 AM LABORATORY MECHANIC HELPER documented in this encounter Results * CARDIOLOGY REPORT (09/04/2016 12:00 AM LABORATORY MECHANIC HELPER) Anatomical Region Laterality Modality Other Narrative 09/04/2016 12:00 AM LABORATORY MECHANIC HELPER Ordered by an unspecified provider. Historical Provider MD [facility] PROCE DURES Final Result * CARDIOLOGY REPORT (08/29/2016 12:00 AM LABORATORY MECHANIC HELPER) Anatomical Region Laterality Modality Other Narrative 08/29/2016 12:00 AM LABORATORY MECHANIC HELPER Ordered by an unspecified provider. Historical Provider [facility] PROCE DURPETR Final Result documented in this encounter Visit Diagnoses Not on filedocumented in this encounter Additional Health Concerns Infection Onset Date Last Indicated Resolved Time COVID: Suspected 09/13/2021 09/13/2021 09/14/2021 12:34 AM LABORATORY MECHANIC HELPER COVID: Suspected 05/25/2024 05/25/2024 05/25/2024 9:56 AM CDT documented as of this encounter Care Teams Channel Opener Relationship Specialty Start Date End Date Brielle Mack MD PCP - General 10/23/17 06/28/20 Amarilis Mcfarlane MD [address] [place] [id number] PCP - General Family Medicine 06/29/20 Bayron Barclay DO [address] [place] [address] MEDICAL ONCOLOGY, [facility] [address] [place] [address] Medical Oncologist/Appliance Mechanic Hematology and Oncology 04/28/23 documented as of this encounter
--- OUTSIDE RECORDS SUMMARY | 2024-10-26 18:40 | XMS_ITS | Encounter Summary ---
Author Organization [facility] Facility Care Team Providers Care Reimbursement Analyst Name Role Phone Brielle Mack MD Primary Care Provider [phone] Amarilis Mcfarlane MD Primary Care Provi julito Bayron Barclay DO Unavailable [phone] Encounter Details Date Type Department Care Team (Latest Contact Info) Description 07/02/2017 Orders Only [facility] CLINCONV ProviderIvonne MD [address] [place] [address] Social History Tobacco Use Types Packs/Day Years Used Date Smoking Tobacco: Never Assessed Comments Unknown Sex and Gender Information Value Date Recorded Sex Assigned at Not on file Legal Sex Female 7:51 AM GARMENT FINISHER Gender Identity Female 06/06/2023 10:34 AM CDT [...] COVID: Suspected 09/13/2021 09/13/2021 09/14/2021 12:34 AM GARMENT FINISHER COVID: Suspected 05/25/2024 05/25/2024 05/25/2024 9:56 AM CDT documented as of this encounter Care Teams Reimbursement Analyst Relationship Specialty Start Date End Date Brielle Mack MD PCP - General 10/23/17 06/28/20 Amarilis Mcfarlane MD [address] [place] [address] PCP - General Family Medicine 06/29/20 Bayron Barclay DO [address] [place] [address] MEDICAL ONCOLOGY, [facility] [address] [place] [address] Medical Oncologist/Business Info Consultant Hematology and Oncology 04/28/23 documented as of this encounter
--- OUTSIDE RECORDS SUMMARY | 2024-10-26 18:40 | XMS_ITS | Clinical Summary ---
Author Organization [facility] Address [address] [place] [address] Care Team Providers Care Surgical Services Director Name Role Phone Brielle Mack MD Primary Care Provider [phone] Source Comments [facility],non-owned Affiliates and Associated Physician Practices is amultiple site organization consisting of ambulatory clinics and hospital sitesin [place], [place], [place] and [place]. This disclosure is being madepursuant to the Care Everywhere program and may not contain all information available regarding this patient. Last updated 18.[facility] Allergies Active Allergy Reactions Criticality Noted Date [...] age to complete this topic Care Teams Surgical Services Director Relationship Specialty Start Date End Date Brielle Mack MD PCP - General Family Medicine 01/08/19
--- OUTSIDE RECORDS SUMMARY | 2024-10-26 18:40 | XMS_ITS | Clinical Summary ---
Author Organization [facility] Address [address] [place] [address] Care Team Providers Care Kitchen Designer Name Role Phone Amarilis Mcfarlane MD Primary Care Provi julito Bayron Barclay DO Unavailable [phone] Allergies Active Allergy Reactions Criticality Noted Date [...] 1 tablet (112 mcg total) by mouth quality control microbiology supervisor before breakfast 90 tablet 1 5 Active [...] 10/04/2024 Assessment & Plan (10/04/2024 2:48 PM SKIMMER REVERBERATORY): BMI Follow-up includes: education provided. Pericardial effusion 08/19/2024 Mixed hyperlipidemia 07/22/2024 Torsades de pointes 02/05/2024 Postoperative hypothyroidism 01/01/2024 Assessment & Plan (10/04/2024 2:50 PM SKIMMER REVERBERATORY): Chronic. Elevated mildly at last 2 lab checks. - Increase levothyroxine from 100-112 mcg daily - Repeat labs in 6 weeks Tingling in extremities 01/01/2024 Bilateral carpal tunnel syndrome 01/01/2024 Sphincter of Oddi dysfunction 07/22/2023 Overview (07/22/2024): Followed by GI Primary hypertension 05/26/2023 Assessment & Plan (10/04/2024 2:52 PM SKIMMER REVERBERATORY): Chronic. Mostly controlled. Patient's average readings from [...] week. Assessment & Plan (07/22/2023 3:39 PM SKIMMER REVERBERATORY): Chronic, stabe Continue current regimen Assessment & Plan (06/10/2023 11:28 AM CDT): Chronic, improved Continue losartan Continue clonidine only if needed Continue to follow with Cardiology Update me with any changes Call for questions Low bone mass 05/30/2022 Assessment & Plan (10/04/2024 2:49 PM SKIMMER REVERBERATORY): Chronic. Discussed recommendation for 500 mg of calcium daily or 3 servings of calcium in diet daily. Discussed recommendation for vitamin-D 8825-6341 international units daily. She may try to get this all from a multivitamin. Assessment & Plan (07/22/2023 3:39 PM SKIMMER REVERBERATORY): Chronic, stable Continue vitamin d Follow up testing ordered Assessment & Plan (05/30/2022 10:13 AM CDT): Continue vitamin d, calcium Strength training, walking H/O cardiac arrest 11/13/2021 Assessment & Plan (07/22/2023 3:37 PM SKIMMER REVERBERATORY): Chronic, stable Managed by cardiology Update me with any changes or concerns Assessment & Plan (05/30/2022 10:11 AM CDT): Following with cardiology Other headache syndrome 10/31/2021 Assessment & Plan (07/22/2023 3:39 PM SKIMMER REVERBERATORY): Acute, resolved Continue to monitor Update me if anything changes or worsens Assessment & Plan (05/30/2022 10:14 AM CDT): Occasional headaches Keep track of headaches Avoid triggers Update me if her symptoms change or worsen Assessment & Plan (10/31/2021 1:02 PM SKIMMER REVERBERATORY): Differential migraine versus cluster versus other With [...] 05/11/2021 Assessment & Plan (07/22/2023 3:40 PM SKIMMER REVERBERATORY): Chronic, stable Managed by cardiology S/p ICD placement Assessment & Plan (05/30/2022 10:13 AM CDT): S/p pacemaker Continue to follow with cardiology PVC's (premature ventricular contractions) 05/11 Assessment & Plan (07/22/2023 3:40 PM SKIMMER REVERBERATORY): Chronic, stable Managed by cardiology Update me with any changes or concerns Assessment & Plan (05/30/2022 10:13 AM CDT): S/p pacemaker Continue to follow with cardiology Nonsustained ventricular tachycardia 05/11/2021 Assessment & Plan (07/22/2023 3:39 PM SKIMMER REVERBERATORY): Chronic, stable Managed by cardiology S/p ICD placement Assessment & Plan (05/30/2022 10:13 AM CDT): S/p pacemaker Continue to follow with cardiology Family history of heart disease 05/11/2021 Assessment & Plan (07/22/2023 3:29 PM SKIMMER REVERBERATORY): Chronic, stable Managed by cardiology Continue current regimen Assessment & Plan (05/30/2022 10:10 AM CDT): Chronic, stable Continue to follow with cardiology Encounter for Medicare annual wellness exam 04/08 Overview (07/22/2024): Encouraged healthy diet and activity Please look into a power of commonwealth attorney or living will Health Maintenance: Last mammogram:07/31, 08/01- WNL Last DEXA: 01/27- Low bone mass-ordered Last colonoscopy: 06/28-repeat in 10 years Last Tdap: encouraged Last pneumonia: up to date Last Shingrix: reviewed Last Flu: reviewed Last COVID: reviewed Assessment & Plan (07/22/2024 8:04 AM SKIMMER REVERBERATORY): Encouraged healthy diet and activity Please look into a power of commonwealth attorney or living will Health Maintenance: Last mammogram:07/31, 08/01- WNL Last DEXA: 01/27- Low bone mass-ordered Last colonoscopy: 06/28-repeat in 10 years Last Tdap: encouraged Last pneumonia: up to date Last Shingrix: reviewed Last Flu: reviewed Last COVID: reviewed Assessment & Plan (07/22/2023 3:28 PM SKIMMER REVERBERATORY): Encouraged healthy diet and activity Please look into a power of commonwealth attorney or living will Health Maintenance: Last mammogram:07/31- WNL Last DEXA: 5/22- Low bone mass Last colonoscopy: 06/28-repeat in 10 years Last Tdap: encouraged Last pneumonia: up to date Last Shingrix: reviewed Last Flu: reviewed Last COVID: reviewed Assessment & Plan (05/30/2022 10:09 AM CDT): Encouraged healthy diet and activity Please look into a power of commonwealth attorney or living will Health Maintenance: Last mammogram:scheduled Last DEXA: 2020- Low bone mass Last colonoscopy: 06/28-repeat in 10 years Last Tdap: encouraged Last pneumonia: due second one Last Shingrix: reviewed Last Flu: reviewed Last COVID: reviewed Assessment & Plan (04/25/2021 2:08 PM CDT): Encouraged healthy diet and activity Please look into a power of commonwealth attorney or living will Wear sun screen, seat belts Health Maintenance: Last mammogram:scheduled Last DEXA: ordered Last Pap: today Last colonoscopy: referral placed Last Tdap: encouraged Last pneumonia/Prevnar: reviewed Last Shingrix: reviewed Last Flu: up to date Last COVID: up to date GERD (gastroesophageal reflux disease) Assessment & Plan (07/22/2023 3:36 PM SKIMMER REVERBERATORY): Chronic, stable Continue prilosec for now Consider [...] untreated Assessment & Plan (10/31/2021 1:01 PM SKIMMER REVERBERATORY): With esophagitis and gastritis on her CT scan Continue Prilosec b.i.d. 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 director of financial reporting Update me after the visit Assessment & Plan (04/25/2021 12:16 PM CDT): Continue omeprazole Reviewed the risk and benefits of medication Grief 08/01/2020 Assessment & Plan (07/22/2023 3:37 PM SKIMMER REVERBERATORY): Chronic, stable Continue supportive care Assessment & Plan (05/30/2022 10:11 AM CDT): Improved, doing well with supportive care Assessment & Plan (04/25/2021 12:15 PM CDT): Patient with a significant amount of loss over the last year Continue supportive care Update me if her mood worsens or changes Assessment & Plan (08/01/2020 1:22 PM SKIMMER REVERBERATORY): Some of her symptoms may be related to her most recent loss- weight loss Continue to use the support around her Update me with any concerns ICD (implantable cardioverter-defibrillator) in place 05/27/2016 Overview (06/19/2022): Medtronic Dual ICD-Evera. Dx; Cardiac Arrest, [place]. DOI 07/18/2014-Dr Bell. Carelink remote is not working. Patient prefers office checks Q3 months. Assessment & Plan (07/22/2023 3:38 PM SKIMMER REVERBERATORY): Chronic, stable Managed by cardiology Assessment & [...] 06/17/2015 Assessment & Plan (07/22/2023 3:38 PM SKIMMER REVERBERATORY): Chronic, stable Managed by oncology Continue to monitor Assessment & Plan (05/30/2022 10:12 AM CDT): Chronic, stable Follows with oncology Continue synthroid Assessment & Plan (04/25/2021 2:10 PM CDT): Continue levothyroxine at current dose Continue to follow with Dr Barclay Resolved Problems Problem Noted Date Diagnosed Date Resolved Date Hypokalemia 06/02/2023 07/22/2024 Assessment & Plan (07/22/2023 3:38 PM SKIMMER REVERBERATORY): Chronic,s table Continue replacement History of torsades de pointes 05/08/2021 07/22/2024 Assessment & Plan (07/22/2023 3:38 PM SKIMMER REVERBERATORY): Chronic, stable Managed by cardiology S/p pacemaker Assessment & Plan (05/30/2022 10:12 AM CDT): S/p pacemaker Continue to follow with cardiology Allergic rhinitis 04/25/2021 07/22/2024 Assessment & Plan (07/22/2023 3:29 PM SKIMMER REVERBERATORY): Chronic, stable Asymptomatic Continue to monitor Assessment & Plan (05/30/2022 10:09 AM CDT): Chronic, stable Assessment & Plan (04/25/2021 2:11 PM CDT): Continue flonase Thyroid cancer ([facility]/HCC) 04/17/2018 Cardiac arrest 05/27/2016 11/13/2021 Assessment [...] Department Care Team Description 10/04/2024 1:30 PM SKIMMER REVERBERATORY Office Visit [facility] Family [facility] [address] [phone] Angela Garrison PA Primary hypertension (Primary Dx); Postoperative hypothyroidism; Low serum calcium; Low bone mass; BMI 28.0-28.9,adult; Low serum vitamin B12; Medication monitoring encounter; Mixed hyperlipidemia 08/23/2024 3:00 PM SKIMMER REVERBERATORY Ancillary Procedure [facility] Cardiology [address] [place] [address] [place] [phone] Pericardial effusion 08/23/[address] [phone] Claude Milton MD 08/19/2024 8:30 AM SKIMMER REVERBERATORY Office Visit [facility] Cardiology [address] [place] [address] [place] [phone] Claude Milton MD ICD (implantable cardioverter-defibrill ator) in place (Primary Dx); Pericardial effusion; PVC's (premature ventricular contractions); Nonsustained ventricular tachycardia (HCC); H/O cardiac arrest; Primary hypertension; Torsades de pointes (HCC); Mixed hyperlipidemia 08/19/2024 Telephone [facility] Medicine [address] [place] [phone] Amarilis Mcfarlane MD 08/19/2024 Orders Only [facility] Cardiology [address] [facility] 8th [place] [address] [place] [address] Brandy Jj MD ICD (implantable cardioverter-defibrill ator) in place (Primary Dx) 08/19/2024 Telephone [facility] Cardiology [address] [facility] 8th [place] [address] [place] [address] Zoya Bourne 08/12/2024 Orders Only [facility] [address] [phone] Amarilis Mcfarlane MD Hematuria, unspecified type (Primary Dx) 08/12/2024 Telephone [facility] [address] [address] Amarilis Mcfarlane MD 08/11/2024 Telephone [facility] [address] [address] Amarilis Mcfarlane MD 08/06/2024 8:30 AM SKIMMER REVERBERATORY Ancillary Procedure [facility] Cardiology [address] [place] [address] ICD (implantable cardioverter-defibrill ator) in [...] CAD. Heart attack Mother age 90 of [place] Hypertension Mother Breast cancer Sister Relation Name [...] on file Legal Sex Female 7:51 AM SKIMMER REVERBERATORY Gender Identity Female 06/06/2023 10:34 AM CDT [...] Comments Blood Pressure 124/82 10/04/2024 1:11 PM SKIMMER REVERBERATORY Pulse 78 10/04/2024 1:11 PM SKIMMER REVERBERATORY Temperature 36.7 C (98.1 F) 10/04/2024 1:11 PM SKIMMER REVERBERATORY Respiratory Rate 16 10/04/2024 1:11 PM SKIMMER REVERBERATORY Oxygen Saturation 98% 10/04/2024 1:11 PM SKIMMER REVERBERATORY Inhaled Oxygen Concentration - - Weight 78.8 kg (173 lb 12.8 oz) 10/04/2024 1:11 PM SKIMMER REVERBERATORY Height 165.1 cm (5' 5 ) 10/04/2024 1:11 PM SKIMMER REVERBERATORY Body Mass Index 28.92 10/04/2024 1:11 PM SKIMMER REVERBERATORY Plan of Treatment Health Maintenance Due Date [...] Comments T4, FREE Routine 09/14/2024 8:10 AM SKIMMER REVERBERATORY COMPREHENSIVE METABOLIC PANEL Routine 09/14/2024 8:10 AM SKIMMER REVERBERATORY Primary hypertension Calculus of bile duct without cholecystitis and without obstruction THYROID FUNCTION CASCADE Routine 09/14/2024 8:10 AM SKIMMER REVERBERATORY Postoperative hypothyroidism TRANSTHORACIC ECHO (TTE) COMPLETE W DOPPLER/CF WO CONTRAST Routine 08/23/2024 4:18 PM SKIMMER REVERBERATORY Pericardial effusion REFLEXIVE URINE CULTURE Routine 08/19/2024 10:08 AM SKIMMER REVERBERATORY URINALYSIS AND REFLEX TO MICROSCOPIC AND CULTURE Routine 08/19/2024 10:08 AM SKIMMER REVERBERATORY Hematuria, unspecified type DEVICE CHECK - REMOTE Routine 08/09/2024 9:09 AM SKIMMER REVERBERATORY ICD (implantable cardioverter-defibri llator) in place Torsades de pointes (HCC) QT prolongation SCREENING MAMMOGRAM BILATERAL W ISAC Schedule Routine, Read Routine (OP Routine) 07/16/2024 9:37 AM SKIMMER REVERBERATORY Screening mammogram, encounter for HEPATITIS C ANTIBODY Routine 06/04/2022 9:22 AM CDT Need for hepatitis C screening test DEXA AXIAL SKELETON BONE DENSITY 1 OR MORE SITES Schedule Routine, Read Routine (OP Routine) 01/31/2022 9:03 AM CDT Postmenopausal status COLONOSCOPY Routine 06/27/2021 from Last 3 Months or Most Recently Relevant to Health Maintenance Results * (ABNORMAL) Thyroid Function [place] (09/14/2024 8:10 AM SKIMMER REVERBERATORY) TSH 4.89(H) 0.40 - 4.50 mIU/L [facility] Blood 09/14/2024 8:10 AM SKIMMER REVERBERATORY 09/14/2024 8:10 AM SKIMMER REVERBERATORY Amarilis Mcfarlane MD LAB BLOOD ORDERABLE S Final Result Performing Organization Address [facility] Co de Phone Number [facility] [address] [place] [address] * T4, free (09/14/2024 8:10 AM SKIMMER REVERBERATORY) Free T4 1.3 0.8 - 1.8 ng/dL [facility] 09/14/2024 8:10 AM SKIMMER REVERBERATORY 09/14/2024 8:10 AM SKIMMER REVERBERATORY Amarilis Mcfarlane MD LAB BLOOD ORDERABLE S Final Result Performing Organization Address [facility] de Phone Number [facility] [address] [place] [address] * (ABNORMAL) Comprehensive metabolic panel (09/14/2024 8:10 AM SKIMMER REVERBERATORY) Pathologist [facility] Glucose 81 65 - 99 mg/dL [facility] [...] [facility] Blood 09/14/2024 8:10 AM SKIMMER REVERBERATORY 09/14/2024 8:10 AM SKIMMER REVERBERATORY us Amarilis Mcfarlane MD LAB BLOOD ORDERABLE S Final Result [facility] [address] [place] [address] * TRANSTHORACIC ECHO (TTE) COMPLETE W DOPPLER/CF WO CONTRAST (08/23/2024 4:18 PM SKIMMER REVERBERATORY) Anatomical Region Laterality Modality Ultrasound 08/23/2024 3:28 PM SKIMMER REVERBERATORY Narrative 08/24/2024 11:46 AM SKIMMER REVERBERATORY [facility] Cardiology [address] [facility] [address] [address] [address] [facility] [address], [place] [address] P:[phone] P:[phone] Echocardiographic Report Patient Name: YASMINE MENJIVAR M : 1955 Study Date: 08/23/2024 3:28:02 PM Gender: F Tech: DEA Location: [facility] Provider: CLAUDE MILTON Height(Cm): 165 BSA: 1.9 [...] FINDINGS: Interpretation Site: Exam was interpreted at [facility]. Left Ventricle: Ejection Fraction is visually estimated [...] By: Dr. Ayaan Mitchell 08/24/2024 11:46:08 AM SKIMMER REVERBERATORY 62 Procedure Note Ayaan Mitchell MD - 08/24/2024 [facility] Medical [facility] Cardiology [address] [facility] [address], [place] [address] [address] [facility] [address], [place] [address] P:[phone] P:[phone] Echocardiographic Report Patient Name: YASMINE MENJIVAR M : 1955 Study Date: 08/23/2024 3:28:02 PM Gender: F Tech: Location: [facility] Provider: CLAUDE MILTON Height(Cm): 165 BSA: 1.9 [...] FINDINGS: Interpretation Site: Exam was interpreted at [facility]. Left Ventricle: Ejection Fraction is visually estimated [...] By: Dr. Ayaan Mitchell 08/24/2024 11:46:08 AM SKIMMER REVERBERATORY 62 us Claude Milton MD CV ECHO PROCEDURES Milagrso l Result * REFLEXIVE URINE CULTURE (08/19/2024 10:08 AM SKIMMER REVERBERATORY) Urine culture [employer] [facility] Comment:NO CULTURE INDICATED 08/19/2024 10:0 8 AM SKIMMER REVERBERATORY 08/19/2024 10:08 AM SKIMMER REVERBERATORY us Amarilis Mcfarlane MD LAB MICROBIOLOGY - GENERAL ORDERABLES Final Result [facility] [address] [place] [address] * Urinalysis reflex to microscopic and culture Urine (08/19/2024 10:08 AM SKIMMER REVERBERATORY) Color, ur YELLOW YELLOW [facility] [...] were reported. Urine 08/19/2024 10:0 8 AM SKIMMER REVERBERATORY 08/19/2024 10:08 AM SKIMMER REVERBERATORY us Amarilis Mcfarlane MD LAB MICROBIOLOGY - GENERAL ORDERABLES Final Result Performing Organization Address City/State/[facility] Co de Phone Number [facility] [address] [place] [address] * DEVICE CHECK - REMOTE (08/09/2024 9:09 AM SKIMMER REVERBERATORY) Anatomical Region Laterality Modality Other Narrative 09/10/2024 8:46 AM SKIMMER REVERBERATORY Table formatting from the original result was [...] follow up scheduled with Dr. Muhammad at [facility]. Yun Viera RN Addendum: 7 months to ZARINA Increase in RV capture threshold since previous. Review of graft shows gradual increase over the last 6-8 months, continuing to increase from a baseline of approximately 0.5, increasing then to 1, now to 1.5. Other lead metrics are stable Eliceo Montanez MD Cardiac Electrophysiology Eliceo Montanez MD CV CARDIAC SERVICES MERGED WITH [facility] Final Result * Screening Mammogram Bilateral W Isac (07/16/2024 9:37 AM SKIMMER REVERBERATORY) Anatomical Region Laterality Modality Breast Bilateral Mammography Impressions 07/16/2024 5:12 PM SKIMMER REVERBERATORY BI-RADS ATLAS category (overall): 1 - Negative There is no mammographic evidence of malignancy. A 1 year screening mammogram is recommended. The patient has been or will be contacted. We recommend annual screening mammography for women at average risk of breast cancer beginning at age 40, based on guidelines of the [employer] (ACR Practice Parameter for the Performance of Screening and Diagnostic Mammography) and [employer]. For women with and elevated risk of breast cancer, please refer to the ACR Practice Parameter for specific screening recommendations. The patient will be entered into a reminder system with a target due date of 1 year for her next screening exam. Narrative 07/16/2024 5:12 PM SKIMMER REVERBERATORY Screening Mammogram Bilateral W Isac: 07/16/24 The [...] a test for HCV RNA (test code 92675) is suggested. For additional information please refer to http://education.Venturesity.Spins.FM/faq/BFH12r6 (This link is being provided for informational/ educational purposes only.) Blood 06/04/2022 9:22 AM CDT 06/04/2022 9:25 AM CDT Narrative [facility] - 06/05/2022 10:11 AM CDT FASTING:YES FASTING: YES Amarilis Mcfarlane MD LAB MICROBIOLOGY - GENERAL ORDERABLES Final Result [facility] [address] [place] [address] * Dexa Axial Skeleton Bone Density 1 or 2 Site (01/31/2022 9:03 AM CDT) Anatomical Region Laterality Modality Body N/A Mammography 01/31/2022 3:21 PM CDT Narrative 01/31/2022 3:21 PM CDT EXAM DESCRIPTION: DEXA AXIAL SKELETON BONE DENSITY 1 OR MORE SITES REASON FOR STUDY: 66 y/o year old F with given history of screening. 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 TB: TB Report ID: [id number] Reading Location: [facility] Procedure Note MiddletonAmrita MD - 01/31/2022 EXAM DESCRIPTION: DEXA AXIAL SKELETON BONE DENSITY 1 OR MORE SITES REASON FOR STUDY: 66 y/o year old F with given history ofscreening. 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 TB: TB Report ID: [id number] Reading Location: [facility] Amarilis Mcfarlane MD IMG DXA PROCEDURES Final Result * Colonoscopy (06/27/2021) Anatomical Region Laterality Modality Other Historical Provider ENDOSCOPY PROCEDURES Milagros l Result from Last 3 Months or Most Recently Relevant to Health Maintenance Insurance MED[place] [id number] MEDICARE [employer] [place] [address] Care Teams Kitchen Designer Relationship Specialty Start Date End Date Amarilis Mcfarlane MD [facility] [address] [place] [address] PCP - General Family Medicine 06/29/20 Bayron Barclay DO [address] [place] [address] MEDICAL ONCOLOGY, [address] [address] Medical Oncologist/Book Retailer Hematology and Oncology 04/28/23
--- OUTSIDE RECORDS SUMMARY | 2024-10-26 18:40 | XMS_ITS | Clinical Summary ---
Author Organization [facility] Care Team Providers Care Real Estate Utilization Officer Name Role Phone Unavailable Primary Care Provider Unavailabl e Social History Tobacco Use Types Packs/Day Years Used Date Smoking Tobacco: Never Assessed Comments Unknown Sex and Gender Information Value Date Recorded Sex Assigned at Not on file Legal Sex Female 8:[address] REPORTER Gender Identity Not on file Sexual Orientation [...]
--- OUTSIDE RECORDS SUMMARY | 2024-10-26 18:40 | XMS_ITS | Patient Health Summary ---
Author Organization [facility] Address [address] [place] [address] Care Team Providers Care Bullet Swaging Machine Operator Name Role Phone Brielle Mack MD Primary Care Provider [phone] Note from [facility],non-owned Affiliates and Associated Physician Practices is amultiple site organization consisting of ambulatory clinics and hospital sitesin [place], [place], [place] and [place]. This disclosure is being madepursuant to the Care Everywhere program and may not contain all information available regarding this patient. Last updated 18.[facility] Allergies * Sulfa Drugs(Cardiac Injury) Medications * [...] CDT 01/08/2019 4:54 PM CDT Ashlylaura Ruano WINDING LATHE OPERATOR-PAVING FOREMAN LAB - HEMATOL OGY ORDERABLES Performing Organization Address City/State/[facility] Co de Phone Number [facility] [address] * (ABNORMAL) CBC W AUTO DIFFERENTIAL [...] CDT 01/08/2019 4:54 PM CDT Ashly Ruano WINDING LATHE OPERATOR-PAVING FOREMAN LAB - HEMATOL OGY ORDERABLES Performing Organization Address City/State/[facility] Co de Phone Number [facility] [address] * (ABNORMAL) COMPREHENSIVE METABOLIC PANEL (01/08/2019 4:48 PM CDT) Glucose 129(H) 70 - 125 mg/dL 01/08/2019 5:25 PM CDT [facility] Sodium 142 136 - 145 mmol/L 01/08/2019 5:25 PM CDT [facility] Potassium 3.5 3.4 - 4.5 mmol/L [...] CDT 01/08/2019 4:54 PM CDT Ashly Ruano WINDING LATHE OPERATOR-PAVING FOREMAN LAB - SITE RELIABILITY ENGINEER RY ORDERABLES [facility] [address] [place] [address], [facility] * EKG 12-LEAD (01/08/2019 4:05 PM CDT) Ventricular Rate 77 BPM [facility] Atrial Rate 77 BPM [facility] P-R Interval 156 ms [facility] QRS Duration ms 76 ms [facility] Q-T Interval ms 430 ms [facility] QTC Calculation (Bezet) 486 ms [facility] Calculated P [place] 64 degrees [facility] Calculated R [place] -3 degrees [facility] Calculated T [place] 38 degrees [facility] Interpretation EKG Sinus rhythm with Premature atrial complexes Otherwise normal ECG No previous ECGs available Confirmed by MD Samantha, [facility] ([id number]) on 01/08/2019 4:21:34 PM [facility] 01/08/2019 4:05 PM CDT 01/08/2019 4:21 PM CDT Mahin Santos MD ECG ORDERABLES [facility] * CT BRAIN WO CONTRAST [id number] (01/08/2019 3:54 PM CDT) Anatomical Region Laterality [...] URINE (06/17/2015 10:29 AM CDT) Pathologist [facility] Culture >100,000 CFU/mL Escherichia coli(A) GRACE 06/19/2015 7:28 AM CDT [facility] Urine URINE SPECIMEN OBTAINED [...] GRACE <=20 ug/mL: Susceptible Belen Arianna Samuel [facility] - MICROBIOLO GY ORDERABLES [facility] [address] [place] [address] * (ABNORMAL) URINALYSIS AUTO - POINT OF CARE (AMB) [facility] (06/17/2015 10:13 AM CDT) Pathologist [facility] Clarity UA POCT cloudy Color UA POCT yellow Glucose UA Negative Negative Bilirubin UA POCT Negative Negative Ketone UA Negative Negative Specific [place] UA POCT 1.020 1.015, 1.020, 1.025 Blood UA POCT Moderate(A) Negative pH UA 5.5 5.0 - 8.0 pH units Protein UA Trace(A) Negative Urobilinogen UA 0.2 0.1 - 1.0 Nitrite UA Negative Negative Leukocyte UA Large(A) Negative QC Verified Yes Yes Urine specimen (specimen) URINE / Unknown 06/17/2015 10:13 AM CDT Belen Baker APRN-[facility] - POINT OF C ARE ORDERABLES Care Teams Bullet Swaging Machine Operator Relationship Specialty Start Date End Date Brielle Mack MD PCP - General Family Medicine 01/08/19
--- OUTSIDE RECORDS SUMMARY | 2024-10-26 18:40 | XMS_ITS | Encounter Summary ---
Author Organization [facility] Healthcare Address [address] [place] [address] Care Team Providers Care Natural Resources Engineer Name Role Phone Amarilis Mcfarlane MD Primary Care Provi julito Bayron Barclay DO Unavailable [phone] Reason for Visit * Reason Comments Hypertension Patient arrives with blood pressure concerns. No sxs Encounter Details Date Type Department Care Team (Late st Contact Info) Description 10/04/2024 1:30 PM EMERGENCY VEHICLE DISPATCHER Office Visit [facility] Medical Group Family Medicine [address] [phone] Angela Garrison PA [address] [address] Primary hypertension (Primary Dx); Postoperative [...] on file Legal Sex Female 7:51 AM EMERGENCY VEHICLE DISPATCHER Gender Identity Female 06/06/2023 10:34 AM CDT Sexual Orientation Straight 06/06/2023 10 :34 AM CDT documented as of this encounter Last Filed Vital Signs Vital Sign Reading Time Taken Comments Blood Pressure 124/82 10/04/2024 1:11 PM EMERGENCY VEHICLE DISPATCHER Pulse 78 10/04/2024 1:11 PM EMERGENCY VEHICLE DISPATCHER Temperature 36.7 C (98.1 F) 10/04/2024 1:11 PM EMERGENCY VEHICLE DISPATCHER Respiratory Rate 16 10/04/2024 1:11 PM EMERGENCY VEHICLE DISPATCHER Oxygen Saturation 98% 10/04/2024 1:11 PM EMERGENCY VEHICLE DISPATCHER Inhaled Oxygen Concentration - - Weight 78.8 kg (173 lb 12.8 oz) 10/04/2024 1:11 PM EMERGENCY VEHICLE DISPATCHER Height 165.1 cm (5' 5 ) 10/04/2024 1:11 PM EMERGENCY VEHICLE DISPATCHER Body Mass Index 28.92 10/04/2024 1:11 PM EMERGENCY VEHICLE DISPATCHER documented in this encounter Functional Status * Audit-C Score Answer Date of Assessment Author 0 10/04/2024 1:11 PM EMERGENCY VEHICLE DISPATCHER Shari Paredes MA * Question Answer Date of Assessment Author Q1: How often do you have a drink containing alcohol? Never 10/04/2024 1:11 PM Shari Valenzuela MA Q2: How many drinks containing alcohol do you have on a typical day when you are drinking? Patient does not drink 10/04/2024 1:11 PM EMERGENCY VEHICLE DISPATCHER Shari Paredes MA Q3: How often do you have six or more drinks on one occasion? Never 10/04/2024 1:11 PM Shari Valenzuela MA documented as of this encounter Ordered Prescriptions Prescription Sig Dispense Quantity Refills Last Filled Start Date End Date levothyroxine (SYNTHROID) 112 mcg tablet Take 1 tablet (112 mcg total) by mouth nutritional health coach before breakfast 90 tablet 1 10/04/2024 documented [...] in diet daily. Discussed recommendation for vitamin-D 9890-3095 international units daily. She may try to [...] 1 tablet (112 mcg total) by mouth nutritional health coach before breakfast No follow-ups on file. *This note is dictated using [employer] voice recognition software, variances in spelling and vocabulary are possible and unintentional.* JUAREZ Britt GENCY VEHICLE DISPATCHER documented in this encounter Miscellaneous Notes * Assessment & Plan Note - Angela Garrison PA - 10/04/2024 2:52 PM EMERGENCY VEHICLE DISPATCHER Associated Problem(s): Primary hypertension Chronic. Mostly controlled. [...] med if continues to have sporadic readings GENCY VEHICLE DISPATCHER * Assessment & Plan Note - Angela Garrison PA - 10/04/2024 2:50 PM EMERGENCY VEHICLE DISPATCHER Associated Problem(s): Postoperative hypothyroidism Chronic. Elevated mildly at last 2 lab checks. - Increase levothyroxine from 100-112 mcg daily - Repeat labs in 6 weeks GENCY VEHICLE DISPATCHER * Assessment & Plan Note - Angela Garrison PA - 10/04/2024 2:49 PM EMERGENCY VEHICLE DISPATCHER Associated Problem(s): Low bone mass Chronic. Discussed recommendation for 500 mg of calcium daily or 3 servings of calcium in diet daily. Discussed recommendation for vitamin-D 9852-7868 international units daily. She may try to get this all from a multivitamin. GENCY VEHICLE DISPATCHER * Assessment & Plan Note - Angela Garrison PA - 10/04/2024 2:48 PM EMERGENCY VEHICLE DISPATCHER Associated Problem(s): BMI 28.0-28.9,adult BMI Follow-up includes: education provided. GENCY VEHICLE DISPATCHER * Addendum Note - Itzel Kumar MA - 10/04/2024 1:30 PM CSTAddended by: ITZEL KUMAR on: 10/26/2024 02:21 PM Modules accepted: Orders GENCY VEHICLE DISPATCHER documented in this encounter Plan of Treatment [...] documented as of this encounter Care Teams Natural Resources Engineer Relationship Specialty Start Date End Date Amarilis Mcfarlane MD [facility] [address] [place] [address] PCP - General Family Medicine 06/29/20 Bayron Barclay DO [address] [place] [address] MEDICAL ONCOLOGY, [address] [address] Medical Oncologist/Last Putter Away Hematology and Oncology 04/28/23 documented as of this encounter
--- OUTSIDE RECORDS SUMMARY | 2024-10-26 18:40 | XMS_ITS | Referral Summary ---
Author Organization [facility] [employer] Address [address] [place] [address] Care Team Providers Care Cinder Worker Name Role Phone Brielle Mack MD Primary Care Provider [phone] Source Comments [facility],non-owned Affiliates and Associated Physician Practices is amultiple site organization consisting of ambulatory clinics and hospital sitesin [place], [place], [place] and [place]. This disclosure is being madepursuant to the Care Everywhere program and may not contain all information available regarding this patient. Last updated 18.[facility] [employer] Allergies Active Allergy Reactions Criticality Noted Date [...] of Treatment Not on file Care Teams Cinder Worker Relationship Specialty Start Date End Date Brielle Mack MD PCP - General Family Medicine 01/08/19
--- OUTSIDE RECORDS SUMMARY | 2024-10-26 18:40 | XMS_ITS | Encounter Summary ---
Author Organization [facility] Care Team Providers Care Furnace Door Tender Name Role Phone Brielle Mack MD Primary Care Provider [phone] Amarilis Mcfarlnae MD Primary Care Provi julito Bayron Barclay DO Unavailable [phone] Encounter Details Date Type Department Care Team (Latest Contact Info) Description 02/29/2016 Orders Only [facility]INCON[facility] ProviderIvonne MD [address] [place] [address] Social History Tobacco Use Types Packs/Day Years Used Date Smoking Tobacco: Never Assessed Comments Unknown Sex and Gender Information Value Date Recorded Sex Assigned at Not on file Legal Sex Female 7:51 AM CIRCULAR TANK COOPER Gender Identity Female 06/06/2023 10:34 AM CDT [...] COVID: Suspected 09/13/2021 09/13/2021 09/14/2021 12:34 AM CIRCULAR TANK COOPER COVID: Suspected 05/25/2024 05/25/2024 05/25/2024 9:56 AM CDT documented as of this encounter Care Teams Furnace Door Tender Relationship Specialty Start Date End Date Brielle Mack MD PCP - General 10/23/17 06/28/20 Amarilis Mcfarlane MD [facility] [address] [place] [address] PCP - General Family Medicine 06/29/20 Bayron Barclay DO [address] [place] [address] MEDICAL ONCOLOGY, [facility] [address] [place], [place] [address] Medical Oncologist/High School Music Teacher Hematology and Oncology 04/28/23 documented as of this encounter
--- OUTSIDE RECORDS SUMMARY | 2024-10-26 18:41 | XMS_ITS | Encounter Summary ---
Author Organization [facility] Healthcare Address [address] [place] [address] Care Team Providers Care Cartography/Mapping Technician Name Role Phone Amarilis Mcfarlane MD Primary Care Provi julito Bayron Barclay DO Unavailable [phone] Encounter Details Date Type Department Care Team (Late st Contact Info) Description 12/18/2023 Telephone [facility] Medical Group Family Medicine [address] [phone] Amarilis Mcfarlane MD [address] [place] [address] Social History Tobacco Use Types Packs/Day [...] on file Legal Sex Female 7:51 AM LAY OUT HELPER Gender Identity Female 06/06/2023 10:34 AM [...] documented as of this encounter Care Teams Cartography/Mapping Technician Relationship Specialty Start Date End Date Amarilis Mcfarlane MD [address] [place] [address] PCP - General Family Medicine 06/29/20 Bayron Barclay DO [address] [place] [address] MEDICAL ONCOLOGY, [facility] [address] [place] [address] Medical Oncologist/Director Of Retail Operations Hematology and Oncology 04/28/23 documented as of this encounter
--- OUTSIDE RECORDS SUMMARY | 2024-10-26 18:41 | XMS_ITS | Referral Summary ---
Author Organization [facility] Address [address] [place] [address] Care Team Providers Care Digester Capper Name Role Phone Amarilis Mcfarlane MD Primary Care Provi julito Bayron Barclay DO Unavailable [phone] Encounters Date Type Department Care Team Description 10/04/2024 1:30 PM SHOW CARD WRITER Office Visit [facility] Medical [facility] Family Medicine [address] [address] Angela Garrison PA Primary hypertension (Primary Dx); Postoperative hypothyroidism; Low serum calcium; Low bone mass; BMI 28.0-28.9,adult; Low serum vitamin B12; Medication monitoring encounter; Mixed hyperlipidemia 08/23/2024 Telephone [facility] Medical [facility] Cardiology [address] [facility] [address] [place] [address] Claude Milton MD 08/23/2024 3:00 PM SHOW CARD WRITER Ancillary Procedure [facility] Cardiology [address] [place] [address] Pericardial effusion 08/19/2024 Telephone [facility] Family Medicine [address] [address] Amarilis Mcfarlane MD 08/19/2024 Orders Only [facility] Cardiology [address] [facility] 8th [place] [address] [place] [address] Brandy Jj MD ICD (implantable cardioverter-defibrill ator) in place (Primary Dx) 08/19/2024 Telephone [facility] Cardiology [address] [facility] 8th [place] [address] [place] [address] Sury Bournee 08/19/2024 8:30 AM SHOW CARD WRITER Office Visit [facility] Cardiology [address] [place] [address] Claude Milton MD ICD (implantable cardioverter-defibrill ator) in place (Primary Dx); Pericardial effusion; PVC's (premature ventricular contractions); Nonsustained ventricular tachycardia (HCC); H/O cardiac arrest; Primary hypertension; Torsades de pointes (HCC); Mixed hyperlipidemia 08/12/2024 Orders Only [facility] Medicine [address] [place] [address] Amarilis Mcfarlane MD Hematuria, unspecified type (Primary Dx) 08/12/[address] [address] Amarilis Mcfarlane MD 08/11/[address] [address] Amarilis Mcfarlane MD 08/06/2024 8:30 AM SHOW CARD WRITER Ancillary Procedure [facility] Cardiology [address] [facility] [address] [place] [address] ICD (implantable cardioverter-defibrill ator) in [...] 1 tablet (112 mcg total) by mouth kettle coordinator before breakfast 90 tablet 1 5 Active [...] 10/04/2024 Assessment & Plan (10/04/2024 2:48 PM SHOW CARD WRITER): BMI Follow-up includes: education provided. Pericardial effusion 08/19/2024 Mixed hyperlipidemia 07/22/2024 Torsades de pointes 02/05/2024 Postoperative hypothyroidism 01/01/2024 Assessment & Plan (10/04/2024 2:50 PM SHOW CARD WRITER): Chronic. Elevated mildly at last 2 lab checks. - Increase levothyroxine from 100-112 mcg daily - Repeat labs in 6 weeks Tingling in extremities 01/01/2024 Bilateral carpal tunnel syndrome 01/01/2024 Sphincter of Oddi dysfunction 07/22/2023 Overview (07/22/2024): Followed by GI Primary hypertension 05/26/2023 Assessment & Plan (10/04/2024 2:52 PM SHOW CARD WRITER): Chronic. Mostly controlled. Patient's average readings from [...] week. Assessment & Plan (07/22/2023 3:39 PM SHOW CARD WRITER): Chronic, stabe Continue current regimen Assessment & Plan (06/10/2023 11:28 AM CDT): Chronic, improved Continue losartan Continue clonidine only if needed Continue to follow with Cardiology Update me with any changes Call for questions Low bone mass 05/30/2022 Assessment & Plan (10/04/2024 2:49 PM SHOW CARD WRITER): Chronic. Discussed recommendation for 500 mg of calcium daily or 3 servings of calcium in diet daily. Discussed recommendation for vitamin-D 4382-9658 international units daily. She may try to get this all from a multivitamin. Assessment & Plan (07/22/2023 3:39 PM SHOW CARD WRITER): Chronic, stable Continue vitamin d Follow up testing ordered Assessment & Plan (05/30/2022 10:13 AM CDT): Continue vitamin d, calcium Strength training, walking H/O cardiac arrest 11/13/2021 Assessment & Plan (07/22/2023 3:37 PM SHOW CARD WRITER): Chronic, stable Managed by cardiology Update me with any changes or concerns Assessment & Plan (05/30/2022 10:11 AM CDT): Following with cardiology Other headache syndrome 10/31/2021 Assessment & Plan (07/22/2023 3:39 PM SHOW CARD WRITER): Acute, resolved Continue to monitor Update me if anything changes or worsens Assessment & Plan (05/30/2022 10:14 AM CDT): Occasional headaches Keep track of headaches Avoid triggers Update me if her symptoms change or worsen Assessment & Plan (10/31/2021 1:02 PM SHOW CARD WRITER): Differential migraine versus cluster versus other With [...] 05/11/2021 Assessment & Plan (07/22/2023 3:40 PM SHOW CARD WRITER): Chronic, stable Managed by cardiology S/p ICD placement Assessment & Plan (05/30/2022 10:13 AM CDT): S/p pacemaker Continue to follow with cardiology PVC's (premature ventricular contractions) 05/11 Assessment & Plan (07/22/2023 3:40 PM SHOW CARD WRITER): Chronic, stable Managed by cardiology Update me with any changes or concerns Assessment & Plan (05/30/2022 10:13 AM CDT): S/p pacemaker Continue to follow with cardiology Nonsustained ventricular tachycardia 05/11/2021 Assessment & Plan (07/22/2023 3:39 PM SHOW CARD WRITER): Chronic, stable Managed by cardiology S/p ICD placement Assessment & Plan (05/30/2022 10:13 AM CDT): S/p pacemaker Continue to follow with cardiology Family history of heart disease 05/11/2021 Assessment & Plan (07/22/2023 3:29 PM SHOW CARD WRITER): Chronic, stable Managed by cardiology Continue current regimen Assessment & Plan (05/30/2022 10:10 AM CDT): Chronic, stable Continue to follow with cardiology Encounter for Medicare annual wellness exam 04/08 Overview (07/22/2024): Encouraged healthy diet and activity Please look into a power of veneer department manager or living will Health Maintenance: Last mammogram:07/31, 08/01- WNL Last DEXA: 01/27- Low bone mass-ordered Last colonoscopy: 06/28-repeat in 10 years Last Tdap: encouraged Last pneumonia: up to date Last Shingrix: reviewed Last Flu: reviewed Last COVID: reviewed Assessment & Plan (07/22/2024 8:04 AM SHOW CARD WRITER): Encouraged healthy diet and activity Please look into a power of veneer department manager or living will Health Maintenance: Last mammogram:07/31, 08/01- WNL Last DEXA: 01/27- Low bone mass-ordered Last colonoscopy: 06/28-repeat in 10 years Last Tdap: encouraged Last pneumonia: up to date Last Shingrix: reviewed Last Flu: reviewed Last COVID: reviewed Assessment & Plan (07/22/2023 3:28 PM SHOW CARD WRITER): Encouraged healthy diet and activity Please look into a power of veneer department manager or living will Health Maintenance: Last mammogram:07/31- WNL Last DEXA: 01/27- Low bone mass Last colonoscopy: 06/28-repeat in 10 years Last Tdap: encouraged Last pneumonia: up to date Last Shingrix: reviewed Last Flu: reviewed Last COVID: reviewed Assessment & Plan (05/30/2022 10:09 AM CDT): Encouraged healthy diet and activity Please look into a power of veneer department manager or living will Health Maintenance: Last mammogram:scheduled Last DEXA: 2020- Low bone mass Last colonoscopy: 06/28-repeat in 10 years Last Tdap: encouraged Last pneumonia: due second one Last Shingrix: reviewed Last Flu: reviewed Last COVID: reviewed Assessment & Plan (04/25/2021 2:08 PM CDT): Encouraged healthy diet and activity Please look into a power of veneer department manager or living will Wear sun screen, seat belts Health Maintenance: Last mammogram:scheduled Last DEXA: ordered Last Pap: today Last colonoscopy: referral placed Last Tdap: encouraged Last pneumonia/Prevnar: reviewed Last Shingrix: reviewed Last Flu: up to date Last COVID: up to date GERD (gastroesophageal reflux disease) Assessment & Plan (07/22/2023 3:36 PM SHOW CARD WRITER): Chronic, stable Continue prilosec for now Consider [...] untreated Assessment & Plan (10/31/2021 1:01 PM SHOW CARD WRITER): With esophagitis and gastritis on her CT scan Continue Prilosec b.i.d. 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 detector car operator Update me after the visit Assessment & Plan (04/25/2021 12:16 PM CDT): Continue omeprazole Reviewed the risk and benefits of medication Grief 08/01/2020 Assessment & Plan (07/22/2023 3:37 PM SHOW CARD WRITER): Chronic, stable Continue supportive care Assessment & Plan (05/30/2022 10:11 AM CDT): Improved, doing well with supportive care Assessment & Plan (04/25/2021 12:15 PM CDT): Patient with a significant amount of loss over the last year Continue supportive care Update me if her mood worsens or changes Assessment & Plan (08/01/2020 1:22 PM SHOW CARD WRITER): Some of her symptoms may be related to her most recent loss- weight loss Continue to use the support around her Update me with any concerns ICD (implantable cardioverter-defibrillator) in place 05/27/2016 Overview (06/19/2022): Medtronic Dual ICD-Evera. Dx; Cardiac Arrest, [place]. DOI 07/18/2014-Dr Bell. CareAppleTreeBook remote is not working. Patient prefers office checks Q3 months. Assessment & Plan (07/22/2023 3:38 PM SHOW CARD WRITER): Chronic, stable Managed by cardiology Assessment & [...] 06/17/2015 Assessment & Plan (07/22/2023 3:38 PM SHOW CARD WRITER): Chronic, stable Managed by oncology Continue to monitor Assessment & Plan (05/30/2022 10:12 AM CDT): Chronic, stable Follows with oncology Continue synthroid Assessment & Plan (04/25/2021 2:10 PM CDT): Continue levothyroxine at current dose Continue to follow with Dr Barclay Resolved Problems Problem Noted Date Diagnosed Date Resolved Date Hypokalemia 06/02/2023 07/22/2024 Assessment & Plan (07/22/2023 3:38 PM SHOW CARD WRITER): Chronic,s table Continue replacement History of torsades de pointes 05/08/2021 07/22/2024 Assessment & Plan (07/22/2023 3:38 PM SHOW CARD WRITER): Chronic, stable Managed by cardiology S/p pacemaker Assessment & Plan (05/30/2022 10:12 AM CDT): S/p pacemaker Continue to follow with cardiology Allergic rhinitis 04/25/2021 07/22/2024 Assessment & Plan (07/22/2023 3:29 PM SHOW CARD WRITER): Chronic, stable Asymptomatic Continue to monitor Assessment & Plan (05/30/2022 10:09 AM CDT): Chronic, stable Assessment & Plan (04/25/2021 2:11 PM CDT): Continue flonase Thyroid cancer ([facility]/HCC) 04/17/2018 Cardiac arrest 05/27/2016 11/13/2021 Assessment [...] on file Legal Sex Female 7:51 AM SHOW CARD WRITER Gender Identity Female 06/06/2023 10:34 AM CDT Sexual Orientation Straight 06/06/2023 10 :34 AM CDT Last Filed Vital Signs Vital Sign Reading Time Taken Comments Blood Pressure 124/82 10/04/2024 1:11 PM SHOW CARD WRITER Pulse 78 10/04/2024 1:11 PM SHOW CARD WRITER Temperature 36.7 C (98.1 F) 10/04/2024 1:11 PM SHOW CARD WRITER Respiratory Rate 16 10/04/2024 1:11 PM SHOW CARD WRITER Oxygen Saturation 98% 10/04/2024 1:11 PM SHOW CARD WRITER Inhaled Oxygen Concentration - - Weight 78.8 kg (173 lb 12.8 oz) 10/04/2024 1:11 PM SHOW CARD WRITER Height 165.1 cm (5' 5 ) 10/04/2024 1:11 PM SHOW CARD WRITER Body Mass Index 28.92 10/04/2024 1:11 PM SHOW CARD WRITER Plan of Treatment Not on file Procedures Procedure Name Priority Date/Time Associated Diagnosis Comments T4, FREE Routine 09/14/2024 8:10 AM SHOW CARD WRITER COMPREHENSIVE METABOLIC PANEL Routine 09/14/2024 8:10 AM SHOW CARD WRITER Primary hypertension Calculus of bile duct without cholecystitis and without obstruction THYROID FUNCTION CASCADE Routine 09/14/2024 8:10 AM SHOW CARD WRITER Postoperative hypothyroidism TRANSTHORACIC ECHO (TTE) COMPLETE W DOPPLER/CF WO CONTRAST Routine 08/23/2024 4:18 PM SHOW CARD WRITER Pericardial effusion REFLEXIVE URINE CULTURE Routine 08/19/2024 10:08 AM SHOW CARD WRITER URINALYSIS AND REFLEX TO MICROSCOPIC AND CULTURE Routine 08/19/2024 10:08 AM SHOW CARD WRITER Hematuria, unspecified type DEVICE CHECK - REMOTE Routine 08/09/2024 9:09 AM SHOW CARD WRITER ICD (implantable cardioverter-defibri llator) in place Torsades de pointes (HCC) QT prolongation SCREENING MAMMOGRAM BILATERAL W ISAC Schedule Routine, Read Routine (OP Routine) 07/16/2024 9:37 AM SHOW CARD WRITER Screening mammogram, encounter for HEPATITIS C ANTIBODY Routine 06/04/2022 9:22 AM CDT Need for hepatitis C screening test DEXA AXIAL SKELETON BONE DENSITY 1 OR MORE SITES Schedule Routine, Read Routine (OP Routine) 01/31/2022 9:03 AM CDT Postmenopausal status COLONOSCOPY Routine 06/27/2021 from Last 3 Months or Most Recently Relevant to Health Maintenance Results * (ABNORMAL) Thyroid Function [place] (09/14/2024 8:10 AM SHOW CARD WRITER) TSH 4.89(H) 0.40 - 4.50 mIU/L [facility] Blood 09/14/2024 8:10 AM SHOW CARD WRITER 09/14/2024 8:10 AM SHOW CARD WRITER us Amarilis Mcfarlane MD LAB BLOOD ORDERABLE S Final Result [facility] [address] [place] [address] * T4, free (09/14/2024 8:10 AM SHOW CARD WRITER) Free T4 1.3 0.8 - 1.8 ng/dL [facility] 09/14/2024 8:10 AM SHOW CARD WRITER 09/14/2024 8:10 AM SHOW CARD WRITER us Amarliis Mcfarlane MD LAB BLOOD ORDERABLE S Final Result [facility] [address] [place] [address] * (ABNORMAL) Comprehensive metabolic panel (09/14/2024 8:10 AM SHOW CARD WRITER) Pathologist [facility] Glucose 81 65 - 99 mg/dL [facility] [...] [facility] Blood 09/14/2024 8:10 AM SHOW CARD WRITER 09/14/2024 8:10 AM SHOW CARD WRITER us Amarilis Mcfarlane MD LAB BLOOD ORDERABLE S Final Result [facility] [address] [address] * TRANSTHORACIC ECHO (TTE) COMPLETE W DOPPLER/CF WO CONTRAST (08/23/2024 4:18 PM SHOW CARD WRITER) Anatomical Region Laterality Modality Ultrasound 08/23/2024 3:28 PM SHOW CARD WRITER Narrative 08/24/2024 11:46 AM SHOW CARD WRITER [facility] Medical Group Cardiology [address] [facility] [place] [address], [place] [address] [address] [facility] [address] [place] [address], [place] [address] P:[phone] P:[phone] Echocardiographic Report Patient Name: YASMINE MENJIVAR M : 1955 Study Date: 08/23/2024 3:28:02 PM Gender: F Tech: Location: [facility] Provider: CLAUDE MILTON Height(Cm): 165 [...] FINDINGS: Interpretation Site: Exam was interpreted at [facility]. Left Ventricle: Ejection Fraction is visually estimated [...] By: Dr. Ayaan Mitchell 08/24/2024 11:46:08 AM SHOW CARD WRITER 62 Procedure Note Ayaan Mitchell MD - 08/24/2024 [facility] Medical Group Cardiology [address] [facility] [address], [place] [address] [address] [facility] [address], [place], [place] [address] P:[phone] P:[phone] Echocardiographic Report Patient Name: YASMINE MENJIVAR M : 1955 Study Date: 08/23/2024 3:28:02 PM Gender: F Tech: Location: [facility] Provider: CLAUDE MILTON Height(Cm): 165 [...] FINDINGS: Interpretation Site: Exam was interpreted at [facility]. Left Ventricle: Ejection Fraction is visually estimated [...] By: Dr. Ayaan Mitchell 08/24/2024 11:46:08 AM SHOW CARD WRITER 62 us Claude Milton MD CV ECHO PROCEDURES Milagros l Result * REFLEXIVE URINE CULTURE (08/19/2024 10:08 AM SHOW CARD WRITER) Urine culture [facility] Comment:NO CULTURE INDICATED 08/19/2024 10:0 8 AM SHOW CARD WRITER 08/19/2024 10:08 AM SHOW CARD WRITER us Amarilis Mcfarlane MD LAB MICROBIOLOGY - GENERAL ORDERABLES Final Result [facility] [address] [place] [address] * Urinalysis reflex to microscopic and culture Urine (08/19/2024 10:08 AM SHOW CARD WRITER) Color, ur YELLOW YELLOW [facility] [...] were reported. Urine 08/19/2024 10:0 8 AM SHOW CARD WRITER 08/19/2024 10:08 AM SHOW CARD WRITER us Amrailis Mcfarlane MD LAB MICROBIOLOGY - GENERAL ORDERABLES Final Result [facility] [place] [address] [place] [address] * DEVICE CHECK - REMOTE (08/09/2024 9:09 AM SHOW CARD WRITER) Anatomical Region Laterality Modality Other Narrative 09/10/2024 8:46 AM SHOW CARD WRITER Table formatting from the original result was [...] follow up scheduled with Dr. Muhammad at [facility]. Yun Viera RN Addendum: 7 months to ZARINA Increase in RV capture threshold since previous. Review of graft shows gradual increase over the last 6-8 months, continuing to increase from a baseline of approximately 0.5, increasing then to 1, now to 1.5. Other lead metrics are stable Eliceo Montanez MD Cardiac Electrophysiology us Eliceo Montanez MD CV CARDIAC SERVICES PROCE [facility] Final Result * Screening Mammogram Bilateral W Isac (07/16/2024 9:37 AM SHOW CARD WRITER) Anatomical Region Laterality Modality Breast Bilateral Mammography Impressions 07/16/2024 5:12 PM SHOW CARD WRITER BI-RADS ATLAS category (overall): 1 - Negative There is no mammographic evidence of malignancy. A 1 year screening mammogram is recommended. The patient has been or will be contacted. We recommend annual screening mammography for women at average risk of breast cancer beginning at age 40, based on guidelines of the [employer] (ACR Practice Parameter for the Performance of Screening and Diagnostic Mammography) and [employer]. For women with and elevated risk of breast cancer, please refer to the ACR Practice Parameter for specific screening recommendations. The patient will be entered into a reminder system with a target due date of 1 year for her next screening exam. Narrative 07/16/2024 5:12 PM SHOW CARD WRITER Screening Mammogram Bilateral W Isac: 07/16/24 The [...] a test for HCV RNA (test code 63254) is suggested. For additional information please refer to http://education.[employer]/faq/HZY77p5 (This link is being provided for informational/ educational purposes only.) Blood 06/04/2022 9:22 AM CDT 06/04/2022 9:25 AM CDT Narrative [facility] - 06/05/2022 10:11 AM CDT FASTING:YES FASTING: YES Amarilis Mcfarlane MD LAB MICROBIOLOGY - GENERAL ORDERABLES Final Result [facility] [address] [place] [address] * Dexa Axial Skeleton Bone Density 1 or 2 Site (01/31/2022 9:03 AM CDT) Anatomical Region Laterality Modality Body N/A Mammography 01/31/2022 3:21 PM CDT Narrative 01/31/2022 3:21 PM CDT EXAM DESCRIPTION: DEXA AXIAL SKELETON BONE DENSITY 1 OR MORE SITES REASON FOR STUDY: 66 y/o year old F with given history of screening. Telephone Surveyor/Model: HoloEver[employer]e A (S/N [id number]) CLINICAL INFORMATION: Current height: 65 inches Maximum [...] Amrita Dennison M.D. TB: TB Report ID: [id number] Reading Location: [facility] Procedure Note Amrita Middleton MD - 01/31/2022 EXAM DESCRIPTION: DEXA AXIAL SKELETON BONE DENSITY 1 OR MORE SITES REASON FOR STUDY: 66 y/o year old F with given history ofscreening. Telephone Surveyor/Model: Cog[employer]ion A (S/N [id number]) CLINICAL INFORMATION: Current height: 65 inches Maximum [...] Amrita Dennison M.D. TB: TB Report ID: [id number] Reading Location: [facility] us Amairlis Mcfarlane MD IMG DXA PROCEDURES Final Result * Colonoscopy (06/27/2021) Anatomical Region Laterality Modality Other Historical Provider ENDOSCOPY PROCEDURES Milagros l Result from Last 3 Months or Most Recently Relevant to Health Maintenance Insurance MEDICARE [facility] MEDICARE [facility] MEDICARE [place] Care Teams Digester Capper Relationship Specialty Start Date End Date Amarilis Mcfarlane MD [address] [facility] [place], [place] [id number] PCP - General Family Medicine 06/29/20 Bayron Barclay DO [address] [place] [address] MEDICAL ONCOLOGY, [facility] [address] [place], [place] [address] Medical Oncologist/Plant Clerk Hematology and Oncology 04/28/23
[2024-10-26 19:32] VITALS: BP 150/81; PULSE 73; RESP 17; O2SAT 100
--- NOTE | 2024-10-26 19:37 | ECG_ITS ---
Test Date: 2024-10-26 19:47:36 Measurements Intervals [place] Rate: 72 P: 57 MI: 166 QRS: -20 QRSD: 92 T: 42 QT: 428 QTc: 470 Interpretive Statements SINUS RHYTHM POSSIBLE LEFT ATRIAL ENLARGEMENT VOLTAGE CRITERIA FOR LVH CANNOT R/O SEPTAL INFARCT, AGE INDETERMINATE ABNORMAL ECG Compared to ECG 10/26/2024 16:53:57 No significant changes Electronically Signed On 10-27-2024 07:15:45 BACK TACKER by Cameron Rodrigues D.O.
--- NOTE | 2024-10-26 19:45 | ED_ITS ---
HPI - General Adult General Chief complaint: Chest Pain Stated complaint: back and left arm pain Time Seen by Provider: 10/26/24 18:11 History of Present Illness HPI narrative: 69-year-old female presented to the emergency department for evaluation for some left-sided shoulder pain. Patient states he also did have a short period of back pain. Patient does have a prior history of torsades does have an implanted defibrillator. Patient denies any history of coronary disease. Patient did have a cardiac catheterization approximately 10 years ago and did have a negative stress test last year. Patient does attribute her sensation to anxiety. Related Data Home Medications ?Medication ?Instructions ?Recorded ?Confirmed ?Last Taken ?Type levothyroxine 100 mcg tablet 0.1 mcg PO DAILY 08/30/21 10/26/24 10/26/24 History (Synthroid) potassium chloride 10 mEq 10 meq PO BID 08/30/21 10/26/24 10/26/24 History capsule,extended release cholecalciferol (vitamin D3) 250 2,000 mcg PO DAILY 12/04/21 10/26/24 10/26/24 History mcg (10,000 unit) capsule cyanocobalamin (vitamin B-12) 50 50 mcg PO DAILY 01/02/24 10/26/24 10/26/24 History mcg tablet omeprazole 20 mg capsule,delayed 20 mg PO DAILY PRN nausea 01/02/24 10/26/24 Unknown History release losartan 100 mg tablet 100 mg PO BID 06/25/24 10/26/24 10/26/24 History clonidine HCl 0.1 mg tablet 0.1 mg PO .prn 08/26/24 10/26/24 Unknown History dicyclomine 10 mg capsule 10 mg PO .prn abdominal discomfort 08/26/24 10/26/24 Unknown History meclizine 25 mg tablet 25 mg PO .prn Nausea 08/26/24 10/26/24 Unknown History atorvastatin 20 mg tablet 10 mg PO QPM 10/26/24 10/26/24 10/26/24 History Allergies Allergy/AdvReac Type Severity Reaction Status Date / Time diphenhydramine (From AdvReac Severe Palpitation Verified 10/26/24 18:16 Benadryl) s erythromycin base AdvReac Severe Palpitation Verified 10/26/24 18:16 s anything prolongs QT AdvReac Unknown Uncoded 10/26/24 18:16 Review of Systems 2 Review of Systems: All systems reviewed & are unremarkable except as noted in HPI and below PMFSH Past Medical History Medical History (Updated 10/26/24 @ 20:23 by Cassius Antoine MD) Diarrhea Calculus of cystic duct without obstruction Rectal bleeding Abdominal pain Abnormal CT of the abdomen Neck pain Gastroesophageal reflux disease QT prolongation ICD (implantable cardioverter-defibrillator) battery depletion Torsades de pointes TMJ (dislocation of temporomandibular joint) GERD (gastroesophageal reflux disease) Thyroid cancer Surgical History Surgical History History of sphincterotomy of sphincter of Oddi Hx of cholecystectomy History of appendectomy Social History Social History Smoking status: Never smoker Alcohol intake: never Substance use: never Living arrangements: with family Gender identity (if verbalized by the patient): Female Spiritual care concerns: No Exam 2 Narrative: APPEARANCE: Well appearing, no pain, no distress, well-nourished. HEAD: normocephalic, atraumatic. EYES: PERRLA/EOMI, conjunctivae clear. NOSE: Normal no drainage EARS:TMS clear with good light reflex. THROAT: Pharynx clear, no exudate. NECK: Supple. No adenopathy, no masses. RESPIRATORY: Airway patent, respirations nonlabored. Clear to auscultation bilaterally, no rales, rhonchi, wheezing. CARDIOVASCULAR: Regular rate and rhythm without murmurs rubs or gallops. ABDOMINAL: Soft, nontender, nondistended, normal bowel sounds MUSCULOSKELETAL: Moves all extremities. Strength/ROM intact, No edema, No calf tenderness. NEURO: Alert. Cranial nerves II through XII intact. Good gait. Good coordination SKIN: Warm, dry. Normal Color PSYCHIATRIC: Anxious affect Course Vital Signs Vital signs: Vital Signs Temperature 97.6 F 10/26/24 16:57 Pulse Rate 86 10/26/24 16:57 Respiratory Rate 20 10/26/24 16:57 Blood Pressure 156/81 H 10/26/24 16:57 Pulse Oximetry 100 10/26/24 16:57 Oxygen Delivery Room Air 10/26/24 16:57 Temperature 97.6 F 10/26/24 18:10 Pulse Rate 93 10/26/24 20:35 Respiratory Rate 20 10/26/24 20:35 Blood Pressure 150/81 H 10/26/24 19:32 Pulse Oximetry 97 10/26/24 20:35 Oxygen Delivery Room Air 10/26/24 18:07 Medical Decision Making MDM Narrative Medical decision making narrative: 61-year-old female presents emergency department for evaluation for nonspecific back pain and some intermittent left-sided shoulder pain. Patient denies any symptoms and she has been in the emergency department. Patient states symptoms were not consult with her intermittent. Patient states she does have a history of anxiety and feels this may be contributing to her concern and causing her to be observed today. Patient is currently afebrile with no leukocytosis and hemoglobin of 14.2. Patient's INR was 1.0. Patient has no acute abnormalities on her CMP of concern. Patient did have negative serial EKGs and negative serial troponins. Chest x-ray shows no acute cardiopulmonary abnormality. Patient reports he did have a Angiocath approximately 10 years ago and a negative stress test approximately 2 years ago. Patient does have history of hypertension high cholesterol but does not have history of diabetes. With her heart score patient is suitable for discharge home and close outpatient follow- up for additional outpatient cardiac testing. Patient was comfortable with this plan. All questions concerns were addressed. Differential Diagnosis Differential Diagnosis: Chest pain, back pain, arm pain, anxiety Vital Signs Vital Signs: Vital Signs Temperature 97.6 F 10/26/24 16:57 Pulse Rate 86 10/26/24 16:57 Respiratory Rate 20 10/26/24 16:57 Blood Pressure 156/81 H 10/26/24 16:57 Pulse Oximetry 100 10/26/24 16:57 Oxygen Delivery Room Air 10/26/24 16:57 Temperature 97.6 F 10/26/24 18:10 Pulse Rate 93 10/26/24 20:35 Respiratory Rate 20 10/26/24 20:35 Blood Pressure 150/81 H 10/26/24 19:32 Pulse Oximetry 97 10/26/24 20:35 Oxygen Delivery Room Air 10/26/24 18:07 Lab Data Lab results reviewed: Yes I reviewed the patient's lab results. 10/26/24 17:11 10/26/24 17:11 Labs: Lab Results 10/26/24 10/26/24 Range/Units 17:11 19:41 WBC 7.9 (4.5-10.0) K/mm3 RBC 4.68 (4.2-5.4) M/mm3 Hgb 14.2 (12.0-15.0) g/dL Hct 42.4 (37.0-47.0) % MCV 90.6 (80-100) fl MCH 30.3 (26-34) pg MCHC 33.5 (32-36) g/dl RDW 13.4 (11.5-14.5) % Plt Count 199 (150-375) k/mm3 MPV 10.7 H (7.4-10.4) fl Immature Gran % (Auto) 0.3 (0-0.5) % Neut % (Auto) 70.9 (45.5-73.1) % Lymph % (Auto) 19.2 (18.3-44.2) % Toole % (Auto) 7.5 (2.6-8.5) % Eos % (Auto) 1.6 (0-4.4) % Baso % (Auto) 0.5 (0.2-1.2) % Lymph # (Auto) 1.52 (0.9-3.2) K/mm3 Toole # (Auto) 0.6 (0.1-0.6) K/mm3 Eos # (Auto) 0.1 (0-0.3) K/mm3 Baso # (Auto) 0.0 (0.0-0.1) K/mm3 Abs Immat Gran (auto) 0.02 (0.00-0.031) K/mm3 Absolute Neuts (auto) 5.6 (1.3-6.7) K/mm3 Absolute Nucleated RBC 0.000 (0.0-0.012) K/mm3 Nucleated RBC % 0.0 (0.0-0.2) % PT 13.3 (11.1-14.7) Seconds INR 1.0 APTT 30.6 (22.3-36.8) Seconds Sodium 141 (137-145) mmol/L Potassium 3.8 (3.4-5.0) mmol/L Chloride 105 (98-107) mmol/L Carbon Dioxide 22 (22-30) mmol/L Anion Gap 14 H (4-12) mmol/L BUN 18 H (7-17) mg/dL Creatinine 0.91 (0.7-1.0) mg/dL Estim Creat Clear Calc 49 ml/min Estimated GFR > 60 (59 - ) Glucose 108 (65-110) mg/dL Calcium 9.2 (8.4-10.2) mg/dL Total Bilirubin 1.0 (0.2-1.3) mg/dL AST 23 (14-36) U/L ALT 17 (6-35) U/L Alkaline Phosphatase 102 (38-126) U/L Troponin I < 0.012 < 0.012 (0.000-0.034) ng/mL Total Protein 8.0 (6.3-8.2) g/dL Albumin 4.7 (3.5-5.1) g/dL Lipase 165 (23-300) U/L Imaging Data Radiologist's impression: Impressions Chest X-Ray 10/26/24 17:37 IMPRESSION: No acute cardiopulmonary process. Discharge Plan Discharge Clinical Impression: Chest pain Patient Disposition: Home, Self-Care Condition: Stable Instructions: Antibiotic Form, Chest Pain (ED) Additional Instructions: Have close follow-up with your primary care physician for additional outpatient cardiac testing. If you have any worsening symptoms then please call or return to the emergency department. Patient Language: Bruneian Prescriptions: No Action potassium chloride 10 mEq capsule, extended release 10 meq PO BID levothyroxine [Synthroid] 100 mcg tablet 0.1 mcg PO DAILY meclizine 25 mg tablet 25 mg PO .prn omeprazole 20 mg capsule,delayed release(DR/EC) 20 mg PO DAILY PRN (Reason: nausea) cyanocobalamin (vitamin B-12) 50 mcg Tablet 50 mcg PO DAILY losartan 100 mg tablet 100 mg PO BID dicyclomine 10 mg capsule 10 mg PO .prn clonidine HCl 0.1 mg tablet 0.1 mg PO .prn cholecalciferol (vitamin D3) 250 mcg (10,000 unit) capsule 2,000 mcg PO DAILY atorvastatin 20 mg tablet 10 mg PO QPM Follow-up/Referrals: Maeve,MD Amarilis [Primary Care Provider] - Quality HEART score for chest pain patients History: slightly suspicious ECG: normal Age: > or = to 65 years Risk factors: 1 or 2 risk factors Troponin: < or = to 1x normal limit Heart score: 3
[2024-10-26 20:12] LABS: Troponin I < 0.012 ng/mL (0.000-0.034)
[2024-10-26 20:35] VITALS: PULSE 93; RESP 20; O2SAT 97
== END 2024-10-26 20:39 | disposition home or self-care (01) ==
PROVIDERS: Emergency Provider Emergency Medicine; PCP Family Medicine
DX: R07.9 Chest pain, unspecified (principal); K21.9 Gastro-esophageal reflux disease without esophagitis
CPT/HCPCS: 36415; 71046; 80053; 83690; 84484; 85025; 85610; 85730; 93005; 99284; A9270

== ENCOUNTER 2024-12-27 08:26 | Emergency (ER) | payer MEDICARE, OTHER, SELFPAY ==
[2024-12-27 08:38] VITALS: BP 147/87; PULSE 87; RESP 18; TEMP 36.5; O2SAT 100
--- NOTE | 2024-12-27 08:52 | ED.FEMALEGU ---
HPI - Female Genitourinary General Chief complaint: Urogenital-Female Stated complaint: uti Time Seen by Provider: 12/27/24 08:54 Source: patient Mode of arrival: ambulatory Limitations: no limitations History of Present Illness HPI Narrative: She is here with a 2 day history of burning with urination and increased urinary frequency. She denies any abdominal pain, fevers, or pain in back back. She denies any new concerns today. She reports an ongoing concern with muscle soreness after starting Lipitor over the last few months. She reports she is otherwise in her usual state of health without any complaints. Related Data Home Medications ?Medication ?Instructions ?Recorded ?Confirmed ?Last Taken ?Type levothyroxine 100 mcg tablet 0.1 mcg PO DAILY 08/30/21 10/26/24 10/26/24 History (Synthroid) potassium chloride 10 mEq 10 meq PO BID 08/30/21 10/26/24 10/26/24 History capsule,extended release cholecalciferol (vitamin D3) 250 2,000 mcg PO DAILY 12/04/21 10/26/24 10/26/24 History mcg (10,000 unit) capsule cyanocobalamin (vitamin B-12) 50 50 mcg PO DAILY 01/02/24 10/26/24 10/26/24 History mcg tablet omeprazole 20 mg capsule,delayed 20 mg PO DAILY PRN nausea 01/02/24 10/26/24 Unknown History release losartan 100 mg tablet 100 mg PO BID 06/25/24 10/26/24 10/26/24 History clonidine HCl 0.1 mg tablet 0.1 mg PO .prn 08/26/24 10/26/24 Unknown History dicyclomine 10 mg capsule 10 mg PO .prn abdominal discomfort 08/26/24 10/26/24 Unknown History meclizine 25 mg tablet 25 mg PO .prn Nausea 08/26/24 10/26/24 Unknown History atorvastatin 20 mg tablet 10 mg PO QPM 10/26/24 10/26/24 10/26/24 History Allergies Allergy/AdvReac Type Severity Reaction Status Date / Time diphenhydramine (From AdvReac Severe Palpitation Verified 12/27/24 08:39 Benadryl) s erythromycin base AdvReac Severe Palpitation Verified 12/27/24 08:39 s anything prolongs QT AdvReac Unknown Uncoded 12/27/24 08:39 Review of Systems Review of Systems: CONSTITUTIONAL: Denies fever, chills, or sweats. EYES: Denies visual changes, redness, or discharge. ENT: Denies rhinorrhea, congestion, sore throat, or otalgia. CARDIOVASCULAR: Denies chest pain, palpitations, or edema. +defibrillator. RESPIRATORY: Denies cough or dyspnea. GASTROINTESTINAL: Denies abdominal pain, nausea, vomiting, or diarrhea. GENITOURINARY: Urinary frequency and burning with urination. SKIN: Denies rash or itching. MUSCULOSKELETAL: Denies back pain or joint pain. Muscle pain as noted in ROS, mainly in legs. NEUROLOGIC: Denies headache, numbness, or weakness. PSYCHIATRIC: Denies anxiety or depression. All other systems reviewed are negative, except as documented in HPI. [facility] Past Medical History Medical History (Updated 12/27/24 @ 09:06 by Leyla Alan, PROCUREMENT ASSISTANT) Diarrhea Calculus of cystic duct without obstruction Rectal bleeding Abdominal pain Abnormal CT of the abdomen Neck pain Gastroesophageal reflux disease QT prolongation ICD (implantable cardioverter-defibrillator) battery depletion Torsades de pointes TMJ (dislocation of temporomandibular joint) GERD (gastroesophageal reflux disease) Thyroid cancer Surgical History Surgical History History of sphincterotomy of sphincter of Oddi Hx of cholecystectomy History of appendectomy Social History Social History Smoking status: Never smoker Alcohol intake: never Substance use: never Living arrangements: with family Gender identity (if verbalized by the patient): Female Spiritual care concerns: No Exam Narrative: GENERAL: This is a well-nourished, well-developed patient, in no apparent distress. HEAD: normocephalic, atraumatic. EYES: Sclera clear/white. NOSE: External nose normal with no obvious nasal discharge. NECK: Neck supple, trachea midline. CARDIOVASCULAR: Regular rate and rhythm without murmurs, gallops, or rubs. RESPIRATORY: Clear to auscultation. Breath sounds equal bilaterally. No wheezes, rales, or rhonchi. SKIN: warm, Dry, intact with no suspicious lesions or rash, good texture and turgor. NEURO: awake, alert, and oriented to person, place and time. There were no obvious focal neurologic abnormalities. EXTREMITIES: No joint tenderness, effusion, or edema noted. BACK: Nontender without deformity. No CVA tenderness. Course Course Emergency Course: Patient is aware of diagnosis, understands and agrees to treatment plan. Anticipatory guidance was given. Patient agrees to follow-up as directed and is aware of reasons to seek care at the emergency department. Please be advised this is a medical document. It is intended for [id number] communication. It is written in medical language and may contain unfamiliar abbreviations or verbiage. Medical documents are intended to carry relevant information, facts as evident, and the clinical opinion of the practitioner at the time of the encounter. This report may have been done utilizing a voice recognition system. Attempts have been made to correct errors. However, there may be uncorrected grammatical, spelling, and recognition errors present. The file time of this note does not necessarily represent the time the patient was seen. Level of Care: Express Care Visit Vital Signs Vital signs: Vital Signs Temperature 36.5 C 12/27/24 08:38 Pulse Rate 87 12/27/24 08:38 Respiratory Rate 18 12/27/24 08:38 Blood Pressure 147/87 H 12/27/24 08:38 Pulse Oximetry 100 12/27/24 08:38 Oxygen Delivery Room Air 12/27/24 08:38 Temperature 36.5 C 12/27/24 08:38 Pulse Rate 87 12/27/24 08:38 Respiratory Rate 18 12/27/24 08:38 Blood Pressure 147/87 H 12/27/24 08:38 Pulse Oximetry 100 12/27/24 08:38 Oxygen Delivery Room Air 12/27/24 08:38 reviewed. MDM - Female Genitourinary MDM Narrative Medical decision making narrative: Patient was nontoxic appearing. UA in office with +leukocytes and +blood. Sent for culture. Reviewed medication options with patient related to ICD and concern for medications prolonging QT. She checked her george and stated Bactrim was safe and would not prolong QT. Shared decision making used today. Discharge Plan Discharge Clinical Impression: Urinary tract infection Qualifiers: Urinary tract infection type: acute cystitis Hematuria presence: with hematuria Qualified Code(s): N30.01 - Acute cystitis with hematuria Patient Disposition: Home Condition: Stable Instructions: Antibiotic Form, Urinary Tract Infection in Women (ED) Additional Instructions: Take medications as prescribed.? Follow printed instructions provided. Follow-up with primary care provider. Go to the ER for any worsening symptoms or concerns. Patient Language: Burkinan Prescriptions: New nitrofurantoin monohyd/m-cryst [Macrobid] 100 mg capsule 100 mg PO Q12H 5 Days Qty: 10 0RF Rx Instructions: must administer with a meal/food No Action potassium chloride 10 mEq capsule, extended release 10 meq PO BID levothyroxine [Synthroid] 100 mcg tablet 0.1 mcg PO DAILY meclizine 25 mg tablet 25 mg PO .prn omeprazole 20 mg capsule,delayed release(DR/EC) 20 mg PO DAILY PRN (Reason: nausea) cyanocobalamin (vitamin B-12) 50 mcg Tablet 50 mcg PO DAILY losartan 100 mg tablet 100 mg PO BID dicyclomine 10 mg capsule 10 mg PO .prn clonidine HCl 0.1 mg tablet 0.1 mg PO .prn cholecalciferol (vitamin D3) 250 mcg (10,000 unit) capsule 2,000 mcg PO DAILY atorvastatin 20 mg tablet 10 mg PO QPM Follow-up/Referrals: Maeve,MD Amarilis [Primary Care Provider] - Time of Disposition: 09:05
[2024-12-27 08:57] LABS: EDUAAPPEAR Cloudy; EDUABILI Negative (Negative); EDUABLOOD Trace (Negative); EDUACOLOR1 Yellow; EDUAGLUCOSE Negative (Negative); EDUAKETONE Negative (Negative); EDUALEUKO 2+ (Negative); EDUANITRATE Negative (Negative); EDUAPH 5.5; EDUAPROTEIN Negative (Negative); EDUASPGRAVITY 1.015; EDUAUROBILI 0.2
--- OUTSIDE RECORDS SUMMARY | 2024-12-27 09:01 | XMS_ITS | Clinical Summary ---
Author Organization [facility] Care Team Providers Care Sugar Mixer Name Role Phone Unavailable Primary Care Provider Unavailabl e Social History Tobacco Use Types Packs/Day Years Used Date Smoking Tobacco: Never Assessed Comments Unknown Sex and Gender Information Value Date Recorded Sex Assigned at Not on file Legal Sex Female 8:12 AM ACTUARIAL DIRECTOR Gender Identity Not on file Sexual Orientation [...]
--- OUTSIDE RECORDS SUMMARY | 2024-12-27 09:01 | XMS_ITS | Encounter Summary ---
Author Organization [facility] Healthcare Address [address] [place] [address] Care Team Providers Care Tight Barrel Inspector Name Role Phone Amarilis Mcfarlane MD Primary Care Provi julito Bayron Barclay DO Unavailable [phone] Encounter Details Date Type Department Care Team (Late st Contact Info) Description 11/14/2024 Results Follow-Up [facility] Family Medicine [address] [phone] Amarilis Mcfarlane MD [address] [place] [id number] Social History Tobacco Use Types Packs/Day [...] staff should administer the PHQ-9) 0 10/04/2024 PHQ-9 Answer Date Recorded PHQ-9 Total Score 3 07/22/2024 Comments No Sex and Gender Information Value Date Recorded Sex Assigned at Not on file 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 Gender Identity Female 06/06/2023 10:34 AM CDT Sexual Orientation Straight 06/06/2023 10 :34 AM CDT documented as of this encounter Plan of Treatment Not on file documented as of this encounter Visit Diagnoses Not on filedocumented in this encounter Care Teams Tight Barrel Inspector Relationship Specialty Start Date End Date Amarilis Mcfarlane MD [facility] [address] [place] [address] PCP - General Family Medicine 06/29/20 Bayron Barclay DO [address] [place] [address] MEDICAL ONCOLOGY, [facility] [address] [place] [address] Medical Oncologist/Cardiac Catheterization Technologist Hematology and Oncology 04/28/23 documented as of this encounter
--- OUTSIDE RECORDS SUMMARY | 2024-12-27 09:01 | XMS_ITS | Encounter Summary ---
Author Organization [facility] Facility Care Team Providers Care Core Mounter Name Role Phone Brielle Mack MD Primary Care Provider Amarilis Mcfarlane MD Primary Care Provi julito Bayron Barclay DO Unavailable [phone] Encounter Details Date Type Department Care Team (Latest Contact Info) Description 05/27/2016 Orders Only [facility] CLINCON[facility] ProviderIvonne MD [address] [place] [id number] Social History Tobacco Use Types Packs/Day Years Used Date Smoking Tobacco: Never Assessed Comments Unknown Sex and Gender Information Value Date Recorded Sex Assigned at Not on file Legal Sex Female 7:51 AM INSURANCE 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 Gender Identity Female 06/06/2023 10:34 AM CDT [...] COVID: Suspected 09/13/2021 09/13/2021 09/14/2021 12:34 AM INSURANCE 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 COVID: Suspected 05/25/2024 05/25/2024 05/25/2024 9:56 AM CDT documented as of this encounter Care Teams Core Mounter Relationship Specialty Start Date End Date Brielle Mack MD PCP - General 10/23/17 06/28/20 Amarilis Mcfarlane MD [facility] [address] [place] [id number] PCP - General Family Medicine 06/29/20 Bayron Barclay DO [address] [place] [address] MEDICAL ONCOLOGY, [facility] [address] [place], [place] [id number] Medical Oncologist/Site Safety Coordinator Hematology and Oncology 04/28/23 documented as of this encounter
--- OUTSIDE RECORDS SUMMARY | 2024-12-27 09:01 | XMS_ITS | Encounter Summary ---
Author Organization [facility] Facility Care Team Providers Care Counselor Camp Name Role Phone Brielle Mack MD Primary Care Provider Amarilis Mcfarlane MD Primary Care Provi julito Bayron Barclay DO Unavailable [phone] Encounter Details Date Type Department Care Team (Latest Contact Info) Description 08/29/2016 Orders Only [facility] CLINCONV ProviderIvonne MD [address] [place] [address] Social History Tobacco Use Types Packs/Day Years Used Date Smoking Tobacco: Never Assessed Comments Unknown Sex and Gender Information Value Date Recorded Sex Assigned at Not on file Legal Sex Female 7:51 AM HEALTH POLICY MANAGER Gender Identity Female 06/06/2023 10:34 AM CDT Sexual Orientation Straight 06/06/2023 10 :34 AM CDT documented as of this encounter Plan of Treatment Not on file documented as of this encounter Procedures Procedure Name Priority Date/Time Associated Diagnosis Comments CARDIOLOGY REPORT 09/04/2016 12: 00 AM HEALTH POLICY MANAGER CARDIOLOGY REPORT 08/29/2016 12: 00 AM HEALTH POLICY MANAGER documented in this encounter Results * CARDIOLOGY REPORT (09/04/2016 12:00 AM HEALTH POLICY MANAGER) Anatomical Region Laterality Modality Other Narrative 09/04/2016 12:00 AM HEALTH POLICY MANAGER Ordered by an unspecified provider. Historical Provider MD [facility] CARDIAC SERVICES PROCE DURES Final Result * CARDIOLOGY REPORT (08/29/2016 12:00 AM HEALTH POLICY MANAGER) Anatomical Region Laterality Modality Other Narrative 08/29/2016 12:00 AM HEALTH POLICY MANAGER Ordered by an unspecified provider. Historical Provider [facility] CARDIAC SERVICES PROCE DURPETR Final Result documented in this encounter Visit Diagnoses Not on filedocumented in this encounter Additional Health Concerns Infection Onset Date Last Indicated Resolved Time COVID: Suspected 09/13/2021 09/13/2021 09/14/2021 12:34 AM HEALTH POLICY MANAGER COVID: Suspected 05/25/2024 05/25/2024 05/25/2024 9:56 AM CDT documented as of this encounter Care Teams Counselor Camp Relationship Specialty Start Date End Date Brielle Mack MD PCP - General 10/23/17 06/28/20 Amarilis Mcfarlane MD [address] [place] [id number] PCP - General Family Medicine 06/29/20 Bayron Barclay DO [address] [place] [address] MEDICAL ONCOLOGY, [facility] [address] [place] [address] Medical Oncologist/Head Of Acquisitions Hematology and Oncology 04/28/23 documented as of this encounter
--- OUTSIDE RECORDS SUMMARY | 2024-12-27 09:01 | XMS_ITS | Encounter Summary ---
Author Organization [facility] Care Team Providers Care Files Supervisor Name Role Phone Brielle Mack MD Primary Care Provider Amarilis Mcfarlane MD Primary Care Provi julito Bayron Barclay DO Unavailable [phone] Encounter Details Date Type Department Care Team (Latest Contact Info) Description 12/01/2017 Orders Only [facility] CLINCONV ProviderIvonne MD [address] [place] [id number] Social History Tobacco Use Types Packs/Day Years Used Date Smoking Tobacco: Never Assessed Comments Unknown Sex and Gender Information Value Date Recorded Sex Assigned at Not on file Legal Sex Female 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 MOTEL 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 Gender Identity Female 06/06/2023 10:34 AM CDT [...] COVID: Suspected 09/13/2021 09/13/2021 09/14/2021 12:34 AM MOTEL MAID COVID: Suspected 05/25/2024 05/25/2024 05/25/2024 9:56 AM CDT documented as of this encounter Care Teams Files Supervisor Relationship Specialty Start Date End Date Brielle Mack MD PCP - General 10/23/17 06/28/20 Amarilis Mcfarlane MD [address] [place] [address] PCP - General Family Medicine 06/29/20 Bayron Barclay DO [address] [place] [address] MEDICAL ONCOLOGY, [facility] [address] [place] [address] Medical Oncologist/Key Sander Hematology and Oncology 04/28/23 documented as of this encounter
--- OUTSIDE RECORDS SUMMARY | 2024-12-27 09:01 | XMS_ITS | Encounter Summary ---
Author Organization [facility] Facility Care Team Providers Care Business Development Recruiter Name Role Phone Brielle Mack MD Primary Care Provider Amarilis Mcfarlane MD Primary Care Provi julito Bayron Barclay DO Unavailable [phone] Encounter Details Date Type Department Care Team (Latest Contact Info) Description 02/29/2016 Orders Only [facility] CLINCONV ProviderIvonne MD [address] [place] [id number] Social History Tobacco Use Types Packs/Day Years Used Date Smoking Tobacco: Never Assessed Comments Unknown Sex and Gender Information Value Date Recorded Sex Assigned at Not on file 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 Gender Identity Female 06/06/2023 10:34 AM [...] COVID: Suspected 09/13/2021 09/13/2021 09/14/2021 12:34 AM 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
--- OUTSIDE RECORDS SUMMARY | 2024-12-27 09:02 | XMS_ITS | Encounter Summary ---
Author Organization [facility] Address [address] [place] [address] Phone Care Team Providers Care Costume Seamstress Name Role Phone Amarilis Mcfarlane MD Primary Care Provi julito Bayron Barclay DO Unavailable [phone] Encounter Details Date Type Department Care Team (Late st Contact Info) Description 12/10/2024 Telephone [facility] Cardiology [address] [facility] [address] [place] [address] [place] [address] Lisy Diego Social History Tobacco Use Types Packs/Day Years Used Date Smoking Tobacco: Never Smokeless Tobacco: Never Alcohol Use Standard Drinks/Week Comments No 0 (1 standard drink = 0.6 oz pur e alcohol) AUDIT-C Answer Date Recorded Q1: How often do you have a drink containing alcohol? Never 12/08/2024 Q2: How many drinks containi ng alcohol do you have on a typical day when you are drinking? Patient does not drink Q3: How often do you have si x or more drinks on one occasion? 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 Muhammad or EP Thank you * Telephone Encounter - Lisy Diego - 12/10/2024 10:13 AM CDT [facility] RETURNING CALL. STATES TRANSFERRING CARE TO DR GARRETT [facility] documented in this encounter Plan of Treatment Not on file documented as of this encounter Visit Diagnoses Not on filedocumented in this encounter Care Teams Costume Seamstress Relationship Specialty Start Date End Date Amarilis Mcfarlane MD [address] [place] [address] PCP - General Family Medicine 06/29/20 Bayron Barclay DO [address] [place] [address] MEDICAL ONCOLOGY, [address] [address] Medical Oncologist/Wrapper Layer And Examiner Soft Work Hematology and Oncology 04/28/23 documented as of this encounter
--- OUTSIDE RECORDS SUMMARY | 2024-12-27 09:02 | XMS_ITS | Clinical Summary ---
Author Organization [facility] Address [address] [place] [address] Care Team Providers Care Call Center Support Representative Name Role Phone Amarilis Mcfarlane MD Primary Care Provi julito NingBayron collado DO Unavailable [phone] Allergies Active Allergy Reactions Criticality Noted Date Comments Sulfasalazine Other (See comments) Low 06/17/2015 Episodes of Torsads - Prologs the QT interval Medications cholecalciferol (VITAMIN D-3) 2000 unit capsule Take 0.5 capsules (1,000 Units total) by mouth 3 (three) times a week Active miscellaneous medical supply (Blood Pressure Cuff) miscIndications:E levated blood pressure reading 1 arm blood pressure cuff. Check blood pressure once daily. 1 each 023 Active dicyclomine (BENTYL) 10 mg capsule Take 1 capsule (10 mg total) by mouth 023 Active potassium chloride ER 10 mEq CR tabletIndications :ICD (implantable cardioverter-defi brillator) in place Take 1 tablet/capsule (10 mEq total) by mouth daily 90 tablet/caps ule 1 024 Active losartan (COZAAR) 100 mg tabletIndications :Primary hypertension Take 0.5 tablets (50 mg total) by mouth daily 90 tablet 3 025 Active Additional Information Patient taking differently: 100 mgoral Daily, Reported on 12/21/2024 cloNIDine (CATAPRES) 0.1 mg tabletIndications :Elevated blood pressure reading TAKE 1 TABLET(0.1 MG) BY MOUTH DAILY NEEDED FOR HIGH BLOOD PRESSURE 15 tablet 025 Active meclizine (ANTIVERT) 25 mg tablet TAKE 1 TABLET(25 MG) BY MOUTH THREE TIMES DAILY NEEDED FOR DIZZINESS 30 tablet 025 Active Synthroid 100 mcg tabletIndications :Postoperative hypothyroidism Take 1 tablet (100 mcg total) by mouth early childhood teacher before breakfast 90 tablet 3 025 Active omeprazole (PriLOSEC) 20 mg capsuleIndication s:Gastroesophagea l reflux disease without esophagitis Take 1 capsule (20 mg total) by mouth daily as needed (heartburn) 025 Active Additional Information Patient not taking.Reported on 12/21/2024 famotidine (PEPCID) 20 mg tablet Take 1 tablet (20 mg total) by mouth 2 (two) times a day as needed for heartburn Active cyanocobalamin (Vitamin B-12) 1,000 mcg sublingual tablet Take 2 tablets (2,000 mcg total) by mouth daily 2024 Discontinued(T herapy completed) omeprazole (PriLOSEC) 20 mg capsuleIndication s:Nausea Take 1 capsule (20 mg total) by mouth 2 (two) times a day 180 capsule 1 024 2024 Discontinued atorvastatin (LIPITOR) 20 mg tablet Take 1 tablet (20 mg total) by mouth daily 90 tablet 3 024 2024 Discontinued(T herapy completed) Active Problems Problem Noted Date Diagnosed Date Statin intolerance 11/25/2024 Assessment & Plan (12/21/2024 12:26 PM CDT): Myalgias are improving Assessment & Plan (11/25/2024 11:51 AM CDT): Orders: CT Coronary Calcium Scoring; Future Myalgia 11/25/2024 Assessment & Plan (12/08/2024 3:09 PM CDT): Assessment & Plan (11/25/2024 11:51 AM CDT): Orders: CT Coronary Calcium Scoring; Future Synthroid 125 mcg tablet; Take 1 tablet (125 mcg total) by mouth early childhood teacher before breakfast Thyroid Function [place]; Future Erythrocyte sedimentation rate; Future Comprehensive metabolic panel; Future BMI 28.0-28.9,adult 10/04/2024 Assessment & Plan (10/04/2024 2:48 PM METAL RIVETING MACHINE OPERATOR): BMI Follow-up includes: education provided. Pericardial effusion 08/19/2024 Mixed hyperlipidemia 07/22/2024 Assessment & Plan (12/21/2024 12:26 PM CDT): Statin therapy is not indicated despite elevated ASCVD score due to no evidence of coronary calcium calcifications on CT coronary calcium score Repeat coronary calcium score in 5 years which would be 2029 Assessment & Plan (12/08/2024 3:09 PM CDT): Assessment & Plan (11/25/2024 11:51 AM CDT): Orders: CT Coronary Calcium Scoring; Future Torsades de pointes 02/05/2024 Assessment & Plan (11/25/2024 11:51 AM CDT): Orders: CT Coronary Calcium Scoring; Future Postoperative hypothyroidism 01/01/2024 Assessment & Plan (12/21/2024 12:26 PM CDT): Assessment & Plan (12/08/2024 3:09 PM CDT): Orders: Thyroid Function [place]; Future Assessment & Plan (11/25/2024 11:51 AM CDT): Orders: Synthroid 125 mcg tablet; Take 1 tablet (125 mcg total) by mouth early childhood teacher before breakfast Thyroid Function [place]; Future Erythrocyte sedimentation rate; Future Comprehensive metabolic panel; Future Assessment & Plan (10/04/2024 2:50 PM METAL RIVETING MACHINE OPERATOR): Chronic. Elevated mildly at last 2 lab checks. - Increase levothyroxine from 100-112 mcg daily - Repeat labs in 6 weeks Tingling in extremities 01/01/2024 Bilateral carpal tunnel syndrome 01/01/2024 Sphincter of Oddi dysfunction 07/22/2023 Overview (07/22/2024): Followed by GI Primary hypertension 05/26/2023 Assessment & Plan (12/08/2024 3:09 PM CDT): Assessment & Plan (10/04/2024 2:52 PM METAL RIVETING MACHINE OPERATOR): Chronic. Mostly controlled. Patient's average readings from [...] week. Assessment & Plan (07/22/2023 3:39 PM METAL RIVETING MACHINE OPERATOR): Chronic, stabe Continue current regimen Assessment & Plan (06/10/2023 11:28 AM CDT): Chronic, improved Continue losartan Continue clonidine only if needed Continue to follow with Cardiology Update me with any changes Call for questions Low bone mass 05/30/2022 Assessment & Plan (10/04/2024 2:49 PM METAL RIVETING MACHINE OPERATOR): Chronic. Discussed recommendation for 500 mg of calcium daily or 3 servings of calcium in diet daily. Discussed recommendation for vitamin-D [id number] international units daily. She may try to get this all from a multivitamin. Assessment & Plan (07/22/2023 3:39 PM METAL RIVETING MACHINE OPERATOR): Chronic, stable Continue vitamin d Follow up testing ordered Assessment & Plan (05/30/2022 10:13 AM CDT): Continue vitamin d, calcium Strength training, walking H/O cardiac arrest 11/13/2021 Assessment & Plan (07/22/2023 3:37 PM METAL RIVETING MACHINE OPERATOR): Chronic, stable Managed by cardiology Update me with any changes or concerns Assessment & Plan (05/30/2022 10:11 AM CDT): Following with cardiology Other headache syndrome 10/31/2021 Assessment & Plan (07/22/2023 3:39 PM METAL RIVETING MACHINE OPERATOR): Acute, resolved Continue to monitor Update me if anything changes or worsens Assessment & Plan (05/30/2022 10:14 AM CDT): Occasional headaches Keep track of headaches Avoid triggers Update me if her symptoms change or worsen Assessment & Plan (10/31/2021 1:02 PM METAL RIVETING MACHINE OPERATOR): Differential migraine versus cluster versus other With [...] 05/11/2021 Assessment & Plan (07/22/2023 3:40 PM METAL RIVETING MACHINE OPERATOR): Chronic, stable Managed by cardiology S/p ICD placement Assessment & Plan (05/30/2022 10:13 AM CDT): S/p pacemaker Continue to follow with cardiology PVC's (premature ventricular contractions) 05/11 Assessment & Plan (07/22/2023 3:40 PM METAL RIVETING MACHINE OPERATOR): Chronic, stable Managed by cardiology Update me with any changes or concerns Assessment & Plan (05/30/2022 10:13 AM CDT): S/p pacemaker Continue to follow with cardiology Nonsustained ventricular tachycardia 05/11/2021 Assessment & Plan (07/22/2023 3:39 PM METAL RIVETING MACHINE OPERATOR): Chronic, stable Managed by cardiology S/p ICD placement Assessment & Plan (05/30/2022 10:13 AM CDT): S/p pacemaker Continue to follow with cardiology Family history of heart disease 05/11/2021 Assessment & Plan (07/22/2023 3:29 PM METAL RIVETING MACHINE OPERATOR): Chronic, stable Managed by cardiology Continue current regimen Assessment & Plan (05/30/2022 10:10 AM CDT): Chronic, stable Continue to follow with cardiology Encounter for Medicare annual wellness exam 04/08 Overview (07/22/2024): Encouraged healthy diet and activity Please look into a power of floor polisher or living will Health Maintenance: Last mammogram:07/31, 08/01- WNL Last DEXA: 01/27- Low bone mass-ordered Last colonoscopy: 06/28-repeat in 10 years Last Tdap: encouraged Last pneumonia: up to date Last Shingrix: reviewed Last Flu: reviewed Last COVID: reviewed Assessment & Plan (07/22/2024 8:04 AM METAL RIVETING MACHINE OPERATOR): Encouraged healthy diet and activity Please look into a power of floor polisher or living will Health Maintenance: Last mammogram:07/31, 08/01- WNL Last DEXA: 01/27- Low bone mass-ordered Last colonoscopy: 06/28-repeat in 10 years Last Tdap: encouraged Last pneumonia: up to date Last Shingrix: reviewed Last Flu: reviewed Last COVID: reviewed Assessment & Plan (07/22/2023 3:28 PM METAL RIVETING MACHINE OPERATOR): Encouraged healthy diet and activity Please look into a power of floor polisher or living will Health Maintenance: Last mammogram:07/31- WNL Last DEXA: 01/27- Low bone mass Last colonoscopy: 06/28-repeat in 10 years Last Tdap: encouraged Last pneumonia: up to date Last Shingrix: reviewed Last Flu: reviewed Last COVID: reviewed Assessment & Plan (05/30/2022 10:09 AM CDT): Encouraged healthy diet and activity Please look into a power of floor polisher or living will Health Maintenance: Last mammogram:scheduled Last DEXA: 2020- Low bone mass Last colonoscopy: 06/28-repeat in 10 years Last Tdap: encouraged Last pneumonia: due second one Last Shingrix: reviewed Last Flu: reviewed Last COVID: reviewed Assessment & Plan (04/25/2021 2:08 PM CDT): Encouraged healthy diet and activity Please look into a power of floor polisher or living will Wear sun screen, seat belts Health Maintenance: Last mammogram:scheduled Last DEXA: ordered Last Pap: today Last colonoscopy: referral placed Last Tdap: encouraged Last pneumonia/Prevnar: reviewed Last Shingrix: reviewed Last Flu: up to date Last COVID: up to date GERD (gastroesophageal reflux disease) Assessment & Plan (12/08/2024 3:09 PM CDT): Orders: omeprazole (PriLOSEC) 20 mg capsule; Take 1 capsule (20 mg total) by mouth daily as needed (heartburn) Assessment & Plan (07/22/2023 3:36 PM METAL RIVETING MACHINE OPERATOR): Chronic, stable Continue prilosec for now Consider [...] untreated Assessment & Plan (10/31/2021 1:01 PM METAL RIVETING MACHINE OPERATOR): With esophagitis and gastritis on her CT scan Continue Prilosec b.i.d. 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 tunnel elastic operator chainstitch Update me after the visit Assessment & Plan (04/25/2021 12:16 PM CDT): Continue omeprazole Reviewed the risk and benefits of medication Grief 08/01/2020 Assessment & Plan (07/22/2023 3:37 PM METAL RIVETING MACHINE OPERATOR): Chronic, stable Continue supportive care Assessment & Plan (05/30/2022 10:11 AM CDT): Improved, doing well with supportive care Assessment & Plan (04/25/2021 12:15 PM CDT): Patient with a significant amount of loss over the last year Continue supportive care Update me if her mood worsens or changes Assessment & Plan (08/01/2020 1:22 PM METAL RIVETING MACHINE OPERATOR): Some of her symptoms may be related to her most recent loss- weight loss Continue to use the support around her Update me with any concerns ICD (implantable cardioverter-defibrillator) in place 05/27/2016 Overview (06/19/2022): Medtronic Dual ICD-Evera. Dx; Cardiac Arrest, [place]. DOI 07/18/2014-Dr Bell. Carelink remote is not working. Patient prefers office checks Q3 months. Assessment & Plan (11/25/2024 11:51 AM CDT): Orders: CT Coronary Calcium Scoring; Future Assessment & Plan (07/22/2023 3:38 PM METAL RIVETING MACHINE OPERATOR): Chronic, stable Managed by cardiology Assessment & [...] of thyroid cancer 06/17/2015 Assessment & Plan (12/21/2024 12:26 PM CDT): Assessment & Plan (07/22/2023 3:38 PM METAL RIVETING MACHINE OPERATOR): Chronic, stable Managed by oncology Continue to monitor Assessment & Plan (05/30/2022 10:12 AM CDT): Chronic, stable Follows with oncology Continue synthroid Assessment & Plan (04/25/2021 2:10 PM CDT): Continue levothyroxine at current dose Continue to follow with Dr Barclay Resolved Problems Problem Noted Date Diagnosed Date Resolved Date Hypokalemia 06/02/2023 07/22/2024 Assessment & Plan (07/22/2023 3:38 PM METAL RIVETING MACHINE OPERATOR): Chronic,s table Continue replacement History of torsades de pointes 05/08/2021 07/22/2024 Assessment & Plan (07/22/2023 3:38 PM METAL RIVETING MACHINE OPERATOR): Chronic, stable Managed by cardiology S/p pacemaker Assessment & Plan (05/30/2022 10:12 AM CDT): S/p pacemaker Continue to follow with cardiology Allergic rhinitis 04/25/2021 07/22/2024 Assessment & Plan (07/22/2023 3:29 PM METAL RIVETING MACHINE OPERATOR): Chronic, stable Asymptomatic Continue to monitor Assessment & Plan (05/30/2022 10:09 AM CDT): Chronic, stable Assessment & Plan (04/25/2021 2:11 PM CDT): Continue flonase Thyroid cancer ([facility]/HCC) 04/17/2018 Cardiac arrest 05/27/2016 11/13/2021 Assessment [...] Encounters Date Type Department Care Team Description 12/23/2024 Orders Only [address] [phone] Amarilis Mcfarlane MD Abnormal mammogram (Primary Dx) 12/23/[address] [phone] Amarilis Mcfarlane MD 12/22/2024 Results Follow-Up [address] [phone] Amarilis Mcfarlane MD 12/21/2024 10:00 AM CDT Lab [facility] OP Lab [address] [place] [address] Postoperative hypothyroidism 12/21/2024 9:30 AM CDT Office Visit [address] [phone] Christine Katz PA Mass of lower inner quadrant of left breast (Primary Dx); History of thyroid cancer; Statin intolerance; Postoperative hypothyroidism; Primary insomnia; Mixed hyperlipidemia 12/21/2024 Results Follow-Up [address] [address] Amarilis Mcfarlane MD 12/20/2024 Results Follow-Up [address] [address] Christine Katz PA 12/16/2024 Orders Only [address] [phone] Amarilis Mcfarlane MD Postoperative hypothyroidism (Primary Dx) 12/14/2024 6:59 AM CDT - 12/14/2024 11:59 PM CDT Hospital Encounter [facility] Medical Office Building [address] [address] Mixed hyperlipidemia; ICD (implantable cardioverter-defibrill ator) in place; Torsades de pointes (HCC); Myalgia; Statin intolerance Discharge Disposition: Discharge to home or self care 12/13/2024 Results Follow-Up [facility] Cardiology [address] [facility] Medical Office Building [address] [place] [address] Bairon Muhammad MD 12/10/2024 Telephone [facility] Cardiology [address] [place] [address] 8th [place] [address] [place] [address] Lsiy Diego 12/10/2024 Telephone [facility] Cardiology [facility] 8th [place] [address] [place] [address] Bairon Muhammad MD 12/08/2024 2:30 PM CDT Office Visit [address] [phone] Amarilis Mcfarlane MD Mixed hyperlipidemia (Primary Dx); Myalgia; Postoperative hypothyroidism; Gastroesophageal reflux disease without esophagitis; Primary hypertension 11/29/2024 Orders Only [facility] Cardiology [address] [place] [address] 8th [place] [address] [place] [address] Nathan Irvin MD 11/25/2024 1:00 PM CDT Lab [facility] Lab [address] [place] [address] Myalgia; Postoperative hypothyroidism 11/25/2024 11:00 AM CDT Office Visit [address] [phone] Christine Katz PA Myalgia (Primary Dx); Postoperative hypothyroidism; Mixed hyperlipidemia; Statin intolerance; ICD (implantable cardioverter-defibrill ator) in place; Torsades de pointes (HCC) 11/25/2024 Results Follow-Up [address] [phone] Christine Katz PA Postoperative hypothyroidism (Primary Dx) 11/14/2024 Results Follow-Up [address] [phone] Amarilis Mcfarlane MD 11/03/2024 10:00 AM METAL RIVETING MACHINE OPERATOR Office Visit [address] [phone] Amarilis Mcfarlane MD Mixed hyperlipidemia (Primary Dx); Primary hypertension; Postoperative hypothyroidism; Palpitations; PVC's (premature ventricular contractions); Low serum vitamin B12; Hypocalcemia; Myalgia; Postmenopausal status 11/03/2024 Telephone [facility] Cardiology [address] [place] [phone] Agnes Milton MD Med Management; Muscle Pain; Spasms 11/01/[address] [phone] Amarilis Mcfarlane MD 11/01/2024 Results Follow-Up [address] [phone] Angela Garrison PA 10/28/2024 8:45 AM METAL RIVETING MACHINE OPERATOR Office Visit [facility] Cardiology [address] [place] [address] Office Building [address] [place] [address] Bairon Muhammad MD [place] (ventricular tachycardia) (HCC) (Primary Dx); ICD (implantable cardioverter-defibrill ator) in place 10/28/2024 8:15 AM METAL RIVETING MACHINE OPERATOR Ancillary Procedure [facility] Cardiology [address] [place] [address] Office Building [address] [place] [address] [place] (ventricular tachycardia) (HCC) (Primary Dx); Encounter for fitting or adjustment of implantable cardioverter-defibrill ator (ICD) 10/27/[address] [phone] Amarilis Mcfarlane MD 10/04/2024 1:30 PM METAL RIVETING MACHINE OPERATOR Office Visit [address] [phone] Angela Garrison PA Primary hypertension (Primary Dx); Postoperative hypothyroidism; Low serum calcium; Low bone mass; BMI 28.0-28.9,adult; Low serum vitamin B12; Medication monitoring encounter; Mixed hyperlipidemia from Last 3 Months Immunizations Immunization Administration [...] CAD. Heart attack Mother age 90 of [place] Hypertension Mother Breast cancer Sister Relation Name [...] you have a drink containing alcohol? Never 12/21/2024 Q2: How many drinks containi ng alcohol do you have on a typical day when you are drinking? Patient does not drink Q3: How often do you have si x or more drinks on one occasion? Never 12/21/2024 PHQ-2 Answer Date Recorded PHQ-2 Total Score (If total score is 3 or more points, staff should administer the PHQ-9) 0 12/21/2024 PHQ-9 Answer Date Recorded PHQ-9 Total Score 3 07/22/2024 Comments No Sex and Gender Information Value Date Recorded Sex Assigned at Not on file Legal Sex Female 7:51 AM METAL RIVETING MACHINE OPERATOR Gender Identity Female 06/06/2023 10:34 AM CDT Sexual Orientation Straight 06/06/2023 10 :34 AM CDT Obstetrics History Para Term AB IAB SAB Ectopic Multiple Livin g Live Births 3 3 3 Date Outcome GA Total Labor Labor/2nd/3rd Weight Sex Type Anes PTL Fela A1 A5 Name Clin Term Term Term Last Filed Vital Signs Vital Sign Reading Time Taken Comments Blood Pressure 128/82 12/21/2024 9:17 AM CDT Pulse 83 12/21/2024 9:17 AM CDT Temperature 37.1 C (98.8 F) 12/21/2024 9:17 AM CDT Respiratory Rate 16 12/21/2024 9:17 AM CDT Oxygen Saturation 98% 12/21/2024 9:17 AM CDT Inhaled Oxygen Concentration - - Weight 73.2 kg (161 lb 6.4 oz) 12/21/2024 9:17 A M CDT Height 165.1 cm (5' 5 ) 12/21/2024 9:17 AM CDT Body Mass Index 26.86 12/21/2024 9:17 AM CDT Plan of Treatment Health Maintenance Due [...] 07/09, 07/22/2023, Additional history exists Depression Screening 12/21/2025 12/21/2024, 12/08/2024, 11/25/2024, Additional history exists Colon Cancer Screening-Colonoscopy 06/27/2031 [...] Procedure Name Priority Date/Time Associated Diagnosis Comments THYROID PEROXIDASE ANTIBODY Routine 12/21/2024 10:04 AM CDT Postoperative hypothyroidism THYROID FUNCTION CASCADE Routine 12/20/2024 7:05 AM CDT Postoperative hypothyroidism CT HEART CALCIUM Schedule Routine, Read Routine (OP Routine) 12/14/2024 7:40 AM CDT Mixed hyperlipidemia ICD (implantable cardioverter-defibri llator) in place Torsades de pointes (HCC) Myalgia Statin intolerance DEVICE CHECK - REMOTE Routine 11/29/2024 4:24 AM CDT EGFR Routine 11/25/2024 1:06 PM CDT Myalgia Postoperative hypothyroidism THYROID FUNCTION CASCADE Routine 11/25/2024 1:06 PM CDT Myalgia Postoperative hypothyroidism ERYTHROCYTE SEDIMENTATION RATE Routine 11/25/2024 1:06 PM CDT Myalgia Postoperative hypothyroidism COMPREHENSIVE METABOLIC PANEL Routine 11/25/2024 1:06 PM CDT Myalgia Postoperative hypothyroidism LIPID PANEL Routine 11/12/2024 9:39 AM METAL RIVETING MACHINE OPERATOR Mixed hyperlipidemia ERYTHROCYTE SEDIMENTATION RATE Routine 11/12/2024 9:39 AM METAL RIVETING MACHINE OPERATOR Myalgia CRP (ACUTE PHASE) Routine 11/12/2024 9:3 9 AM METAL RIVETING MACHINE OPERATOR Myalgia CREATINE KINASE (CK), TOTAL Routine 11/12/2024 9:39 AM METAL RIVETING MACHINE OPERATOR Myalgia MAGNESIUM Routine 11/12/2024 9:39 AM METAL RIVETING MACHINE OPERATOR Hypocalcemia PHOSPHORUS Routine 11/12/2024 9:39 AM METAL RIVETING MACHINE OPERATOR Hypocalcemia PTH Routine 11/12/2024 9:39 AM METAL RIVETING MACHINE OPERATOR Hypocalcemia VITAMIN D 25 HYDROXY Routine 11/12/2024 9:39 AM METAL RIVETING MACHINE OPERATOR Hypocalcemia CALCIUM, IONIZED Routine 11/12/2024 9:39 AM METAL RIVETING MACHINE OPERATOR Hypocalcemia VITAMIN B12 Routine 11/12/2024 9:39 AM METAL RIVETING MACHINE OPERATOR Low serum vitamin B12 THYROID FUNCTION CASCADE Routine 11/12/2024 9:39 AM METAL RIVETING MACHINE OPERATOR Postoperative hypothyroidism TSH Routine 10/29/2024 12:31 PM METAL RIVETING MACHINE OPERATOR Postoperative hypothyroidism T4, FREE Routine 10/29/2024 12:31 PM METAL RIVETING MACHINE OPERATOR Postoperative hypothyroidism ECG 12-LEAD Routine 10/28/2024 9:29 AM METAL RIVETING MACHINE OPERATOR ICD (implantable cardioverter-defibri llator) in place [place] (ventricular tachycardia) (HCC) DEVICE CHECK - IN OFFICE Routine 10/28/2024 7:51 AM METAL RIVETING MACHINE OPERATOR Encounter for fitting or adjustment of implantable cardioverter-defibri llator (ICD) SCREENING MAMMOGRAM BILATERAL W ISAC Schedule Routine, Read Routine (OP Routine) 07/16/2024 9:37 AM METAL RIVETING MACHINE OPERATOR Screening mammogram, encounter for HEPATITIS C ANTIBODY Routine 06/04/2022 9:22 AM CDT Need for hepatitis C screening test DEXA AXIAL SKELETON BONE DENSITY 1 OR MORE SITES Schedule Routine, Read Routine (OP Routine) 01/31/2022 9:03 AM CDT Postmenopausal status COLONOSCOPY Routine 06/27/2021 from Last 3 Months or Most Recently Relevant to Health Maintenance Results * Thyroid peroxidase antibody (TPO) (12/21/2024 10:04 AM CDT) Anti Thyroid Peroxidase <30 <=34 IUnits/mL Comment: ATPO Interpretive Data Results may be up to 28% higher in patients receiving Itraconazole. Current interpretive data was last revised 2020. Testing performed by: [facility], [address] [facility], [place]., [address] Blood 12/21/2024 10:0 4 AM CDT 12/21/2024 3:27 PM CDT us Amarilis Mcfarlane MD LAB BLOOD ORDERABLE S Final Result [facility] [address] [facility] Department [place] [address] * Thyroid Function [place] (12/20/2024 7:05 AM CDT) TSH 1.22 0.40 - 4.50 mIU/L [facility] Blood 12/20/2024 7:05 AM CDT 12/20/2024 7:05 AM CDT us Amarilis Mcfarlane MD LAB BLOOD ORDERABLE S Final Result [facility] [address] [place] [address] * CT Coronary Calcium Scoring (12/14/2024 7:40 AM CDT) Anatomical Region Laterality Modality Chest Computed Tomogra phy 12/19/2024 3:21 PM CDT Narrative 12/19/2024 3:26 PM CDT EXAM DESCRIPTION: CT CORONARY CALCIUM SCORING REASON FOR STUDY: CAD screening, borderline/intermediate risk 5-20% High cholesterol. No complaints. . Calcium score screening. TECHNIQUE: CT scan of the heart performed without intravenous and without oral contrast using helical scanning technique. Images reviewed with lung, soft tissue and bone windows. Reconstructed coronal and sagittal MPR images reviewed. Coronary calcium scoring images were reviewed. All images stored on PACS. Automated exposure control was used as a dose optimization technique for this examination. COMPARISON: No prior. FINDINGS: Calcium score: 0 Right coronary artery and Posterior descendin Left main: 0 Left anterior descendin Circumflex: 0 Heart: No cardiomegaly. Trace pericardial effusion inferiorly. Other: More limited view of the adjacent aorta demonstrates no aneurysmal dilatation where seen. Mediastinal windows demonstrate prominent calcified granuloma right hilar region there is artifact as result of AICD or pacing leads. No adjacent infiltrate. IMPRESSION: Total coronary calcium score is 0. Trace pericardial effusion inferiorly. REFERENCE: Coronary calcium scoring should be interpreted in the context of the overall patient including other cardiac risk factors. Consider further evaluation if multi-vessel or left-main predominant disease is present. Coronary calcium scoring is for screening asymptomatic patients, symptomatic patients require prompt evaluation. Calcium Score 0: Does not imply complete absence of coronary artery disease as non-calcified plaques may be present, but these patients may require less aggressive medical/lipid targets. Typically, does not warrant further imaging evaluation. Calcium score>0: Recommend further clinical evaluation and consider lipid/medical therapy. Scores >100 are at higher risk and therapy should be more strongly considered. Scores greater than 300 may require more aggressive medical targets/therapy and evaluation. Preeti, S, Vega, R, Amador Isaacs. Coronary Artery Calcium Score as a Graded Decision Tool. JACC Adv. 2022, 2 (9) . Jose De Jesus Hubbard. Jagdish, Jadyn. Elli, et al. 2018 AHA/ACC/AACVPR/AAPA/ABC/ACPM/ADA/AGS/APhA/ASPC/NLA/PCNA guideline on the management of blood cholesterol: a report of the [place] [employer]/[place] Heart Association Task Force on Clinical Practice Guidelines. J Am Rakel Cardiol, 73 (24) (2019), pp. h423-v481 THIS IS AN ELECTRONICALLY VERIFIED FINAL REPORT 12/19/2024 3:26 PM - Electronically signed by Felix Babcock M.D. MJ: MARICRUZ Report ID: [id number] Reading Location: [id number] Procedure Note Felix Babcock MD - 12/19/2024 EXAM DESCRIPTION: CT CORONARY CALCIUM SCORING REASON FOR STUDY: CAD screening, borderline/intermediate risk 5-20% High cholesterol. No complaints. . Calcium score screening. TECHNIQUE: CT scan of the heart performed without intravenous andwithout oral contrast using helical scanning technique. Images reviewed withlung, soft tissue and bone windows. Reconstructed coronal and sagittal MPRimages reviewed. Coronary calcium scoring images were reviewed. All imagesstored on PACS. Automated exposure control was used as a dose optimizationtechnique for this examination. COMPARISON: No prior. FINDINGS: Calcium score: 0 Right coronary artery and Posterior descendin Left main: 0 Left anterior descendin Circumflex: 0 Heart: No cardiomegaly. Trace pericardial effusion inferiorly. Other: More limited view of the adjacent aorta demonstrates no aneurysmal dilatation where seen. Mediastinal windows demonstrate prominentcalcified granuloma right hilar region there is artifact as result of AICD or pacing leads. No adjacent infiltrate. IMPRESSION: Total coronary calcium score is 0. Trace pericardial effusion inferiorly. REFERENCE: Coronary calcium scoring should be interpreted in the contextof the overall patient including other cardiac risk factors. Consider further evaluation if multi-vessel or left-main predominant disease is present. Coronary calcium scoring is for screening asymptomatic patients,symptomatic patients require prompt evaluation. Calcium Score 0: Does not imply complete absence of coronary arterydisease as non-calcified plaques may be present, but these patients may require less aggressive medical/lipid targets. Typically, does not warrant furtherimaging evaluation. Calcium score>0: Recommend further clinical evaluation and consider lipid/medical therapy. Scores >100 are at higher risk and therapy shouldbe more strongly considered. Scores greater than 300 may require moreaggressive medical targets/therapy and evaluation. Devon Álvarez, Vega R, Amador Isaacs. Coronary Artery Calcium Score as aGraded Decision Tool. JACC Adv. 2022, 2 (9) . Tianna Hubbard A.L. Elli, et al. 2018 AHA/ACC/AACVPR/AAPA/ABC/ACPM/ADA/AGS/APhA/ASPC/NLA/PCNA guideline on the management of blood cholesterol: a report of the [place] [employer]/[place] Heart Association Task Force on Clinical Practice Guidelines. J Am Rakel Cardiol, 73 (24) (2019), pp. c030-c457 THIS IS AN ELECTRONICALLY VERIFIED FINAL REPORT 12/19/2024 3:26 PM - Electronically signed by Felix Babcock M.D. MJ: MARICRUZ Report ID: [id number] Reading Location: [id number] Christine PIZARRO IMG CT PROCEDURES Final Result * DEVICE CHECK - REMOTE (11/29/2024 4:24 AM CDT) Anatomical Region Laterality Modality Other 11/29/2024 4:24 AM CDT Narrative 12/08/2024 7:03 PM CDT Interpretation Summary: Battery and Leads (BL) Normal parameters noted on battery and lead(s) --- 3 months remaining longevity (implanted 2013). Lead impedance, sensing, and RA threshold trends stable and appropriate. No short V-V intervals. Less than 6 months of battery longevity noted Capture threshold gradually increasing on trending --- RV threshold 1.75/0.4. Trend shows gradual increase. RV output is programmed Adaptive, currently 3.5/0.4. Presenting Rhythm (ID) Atrial Pacing-Ventricular Sensing (AP-VS) --- AP/VS 60 bpm. Arrhythmic events (AE) No new arrhythmic events in monitoring period --- Since 11/04/24: No AHR or VHR episodes. Transmission Information (TI) Device Summary Report Procedure Note Nathan Irvin MD - 12/08/2024 Interpretation Summary: Battery and Leads (BL) Normal parameters noted on battery and lead(s) --- 3 months remaininglongevity (implanted 2013). Lead impedance, sensing, and RA thresholdtrends stable and appropriate. No short V-V intervals. Less than 6 months of battery longevity noted Capture threshold gradually increasing on trending --- RV threshold1.75/0.4. Trend shows gradual increase. RV output is programmedAdaptive, currently 3.5/0.4. Presenting Rhythm (ID) Atrial Pacing-Ventricular Sensing (AP-VS) --- AP/VS 60 bpm. Arrhythmic events (AE) No new arrhythmic events in monitoring period --- Since 11/04/24: No AHRor VHR episodes. Transmission Information (TI) Device Summary Report us Nathan Irvin MD [facility] C[facility] PROCEDURES Final Result * eGFR (11/25/2024 1:06 PM CDT) eGFR 70 >=60 mL/min/1. 73 m2 Comment: Interpretive Data Reference Interval Normal >/= 90 mL/min/1.73m2 Mildly decreased* 60 - 89 mL/min/1.73m2 Mildly to moderately decreased 45 - 59 mL/min/1.73m2 Moderately to severely decreased 30 - 44 mL/min/1.73m2 Severely decreased 15 - 29 mL/min/1.73m2 Kidney Failure < 15 mL/min/1.73m2 *Relative to young adult level Estimated glomerular filtration rate is determined by the 2020 CKD-EPI equation recommended by the National Kidney Foundation (A Unifying Approach to GFR Estimation: Recommendations of the NKF-ASK Task Force on Reassessing the Inclusion of Race in Diagnosing Kidney Disease, JASN 2020). The CKD-EPI equation should not be used for patients with unstable renal function and has not been validated in children and those over 70. Current interpretive data was last reviewed 2021. Testing performed by: [facility], [address] [place] [address], [place]., [address] Blood 11/25/2024 1:06 PM CDT 11/25/2024 2:12 PM CDT us Christine PIZARRO LAB BLOOD ORDERABLES Final Resul t OWENACC [address] [facility] Department [place] [employer] [place] [address] * Thyroid Function [place] (11/25/2024 1:06 PM CDT) [facility] TSH 1.58 0.30 - 4.20 mcIUnit/mL Comment:Testing performed by : [address] [address] Blood 11/25/2024 1:06 PM CDT 11/25/2024 2:12 PM CDT Christine PIZRARO LAB BLOOD ORDERABLES Final Resul t Performing Organization Address [facility]/ZIP Co de Phone Number [address] [employer] [place] [address] * Erythrocyte sedimentation rate (11/25/2024 1:06 PM CDT) [facility] Erythrocyte sedimentation rate 5 1 - 30 mm/hr Comment:Testing performed by : [address] [address] Blood 11/25/2024 1:06 PM CDT 11/25/2024 2:12 PM CDT Christine PIZARRO LAB BLOOD ORDERABLES Final Resul t Performing Organization Address [facility]/ZIP Co de Phone Number [address] [address] * Comprehensive metabolic panel (11/25/2024 1:06 PM CDT) [facility] Sodium 142 135 - 145 mmol/L Comment:Testing performed by : [address] [address] Potassium, pl 4.0 3.3 - 4.9 mmol/L SHARON Comment:Testing performed by : [address] [address] Chloride 105 97 - 110 mmol/L SHARON Comment:Testing performed by : [address] [address] CO2 25 22 - 32 mmol/L SHARON Comment:Testing performed by : [address] [address] Anion gap 12 2 - 15 mmol/L SHARON Comment:Testing performed by : [address] [address] BUN 13 6 - 25 mg/dL SHARON Comment:Testing performed by : [address], [place]., [address] Creatinine 0.90 0.60 - 1.10 mg/dL SHARON Comment:Testing performed by : [address] [address] Glucose 131 70 - 199 mg/dL SHARON Comment: Interpretive Data Fasting glucose >/= 126 mg/dl is diagnostic for diabetes. Fasting is defined as no caloric intake for at least 8 hours. Fasting glucose between 100 mg/dl to 125 mg/dl is diagnostic of prediabetes. In a patient with classic symptoms of hyperglycemia or hyperglycemic crisis, a random glucose >/= 200 mg/dl is diagnostic for diabetes. In the absence of unequivocal hyperglycemia, results should be confirmed by repeat testing. The classification and Diagnosis of Diabetes Diabetes Care 202; 46: S19-S40. Current interpretive data was last revised 2022. Testing performed by: [address] [address] Calcium 8.8 8.5 - 10.3 mg/dL SHARON Comment:Testing performed by : [address] [address] Bilirubin, total 0.7 0.1 - 1.2 mg/dL SHARON Comment:Testing performed by : [address] [address] Protein, pl 6.9 6.5 - 8.5 g/dL SHARON Comment:Testing performed by : [address] [address] Albumin 4.3 3.5 - 5.0 g/dL SHARON Comment:Testing performed by : [address] [address] Alk phos 76 40 - 130 Units/L SHARON Comment:Testing performed by : [address] [address] ALT 11 7 - 45 Units/L SHARON QUINN Comment:Testing performed by : [facility], [address] [place] [address]., [address] AST 15 10 - 45 Units/L SHARON Comment:Testing performed by : [facility], [address] [place] [address]., [address] Blood 11/25/2024 1:06 PM CDT 11/25/2024 2:12 PM CDT us Christine PIZARRO LAB BLOOD ORDERABLES Final Resul t SHARON QUINN [address] [facility] Department [place] [address] * Thyroid Function [place] (11/12/2024 9:39 AM METAL RIVETING MACHINE OPERATOR) Pathologist [facility] TSH 3.87 0.40 - 4.50 mIU/L [facility] Blood 11/12/2024 9:39 AM METAL RIVETING MACHINE OPERATOR 11/12/2024 9:39 AM METAL RIVETING MACHINE OPERATOR Narrative [facility] - 11/13/2024 10:52 AM METAL RIVETING MACHINE OPERATOR FASTING:YES FASTING: YES us Amarilis Mcfarlane MD LAB BLOOD ORDERABLE S Final Result Performing Organization Address City/[facility]/ZIP Co de Phone Number QUEST [facility] [address] [place] [address] * Calcium, ionized (11/12/2024 9:39 AM METAL RIVETING MACHINE OPERATOR) Calcium, Ionized 4.7 4.7 - 5.5 mg/dL [facility] Blood 11/12/2024 9:39 AM METAL RIVETING MACHINE OPERATOR 11/12/2024 9:39 AM METAL RIVETING MACHINE OPERATOR Narrative [facility] - 11/13/2024 10:52 AM METAL RIVETING MACHINE OPERATOR FASTING:YES FASTING: YES us Amarilis Mcfarlane MD LAB BLOOD ORDERABLE S Final Result [facility] [address] [place] [address] * Vitamin D 25 hydroxy (11/12/2024 9:39 AM METAL RIVETING MACHINE OPERATOR) Pathologist [facility] Vitamin D 25-OH 51 30 - 100 ng/mL [facility] Comment: Vitamin D Status 25-OH Vitamin D: Deficiency: <20 ng/mL Insufficiency: 20 - 29 ng/mL Optimal: > or = 30 ng/mL For 25-OH Vitamin D testing on patients on D2-supplementation and patients for whom quantitation of D2 and D3 fractions is required, the QuestAssureD(TM) 25-OH VIT D, (D2,D3), LC/MS/MS is recommended: order code 92776 (patients >2yrs). See Note 1 Note 1 For additional information, please refer to http://education.[employer]/faq/EOC392 (This link is being provided for informational/ educational purposes only.) Blood 11/12/2024 9:39 AM METAL RIVETING MACHINE OPERATOR 11/12/2024 9:39 AM METAL RIVETING MACHINE OPERATOR Narrative [facility] - 11/13/2024 10:52 AM METAL RIVETING MACHINE OPERATOR FASTING:YES FASTING: YES us Amarilis Mcfarlane MD LAB BLOOD ORDERABLE S Final Result Performing Organization Address [facility]/ZIP Co de Phone Number [facility] [address] [place] [address] * Erythrocyte sedimentation rate (11/12/2024 9:39 AM METAL RIVETING MACHINE OPERATOR) [facility] Erythrocyte sedimentation rate 2 < OR = 30 mm/h [facility] [place] Blood 11/12/2024 9:39 AM METAL RIVETING MACHINE OPERATOR 11/12/2024 9:39 AM METAL RIVETING MACHINE OPERATOR Narrative [facility] - 11/13/2024 10:52 AM METAL RIVETING MACHINE OPERATOR FASTING:YES FASTING: YES us Amarilis Mcfarlane MD LAB BLOOD ORDERABLE S Final Result [facility] [address] [place] [address] * CRP (acute phase) (11/12/2024 9:39 AM METAL RIVETING MACHINE OPERATOR) [facility] C-RP <3.0 <8.0 mg/L [facility] Blood 11/12/2024 9:39 AM METAL RIVETING MACHINE OPERATOR 11/12/2024 9:39 AM METAL RIVETING MACHINE OPERATOR Narrative [facility] - 11/13/2024 10:52 AM METAL RIVETING MACHINE OPERATOR FASTING:YES FASTING: YES Amarilis Mcfarlane MD LAB BLOOD ORDERABLE S Final Result Performing Organization Address [facility] Co de Phone Number QUEST [facility] [address] [place] [address] * Phosphorus (11/12/2024 9:39 AM METAL RIVETING MACHINE OPERATOR) [facility] Phosphorus, sr 4.0 2.1 - 4.3 mg/dL [facility] Blood 11/12/2024 9:39 AM METAL RIVETING MACHINE OPERATOR 11/12/2024 9:39 AM METAL RIVETING MACHINE OPERATOR Narrative [facility] - 11/13/2024 10:52 AM METAL RIVETING MACHINE OPERATOR FASTING:YES FASTING: YES Amarilis Mcfarlane MD LAB BLOOD ORDERABLE S Final Result Performing Organization Address [facility] de Phone Number QUEST [facility] [address] [place] [address] * PTH (11/12/2024 9:39 AM METAL RIVETING MACHINE OPERATOR) [facility] Parathyroid hormone, intact 24 16 - 77 pg/mL [facility] Comment: Interpretive Guide Intact PTH Calcium ------- Normal Parathyroid Normal Normal Hypoparathyroidism Low or Low Normal Low Hyperparathyroidism Primary Normal or High High Secondary High Normal or Low Tertiary High High Non-Parathyroid Hypercalcemia Low or Low Normal High Blood 11/12/2024 9:39 AM METAL RIVETING MACHINE OPERATOR 11/12/2024 9:39 AM METAL RIVETING MACHINE OPERATOR Narrative [facility] - 11/13/2024 10:52 AM METAL RIVETING MACHINE OPERATOR FASTING:YES FASTING: YES us Amarilis Mcfarlane MD LAB BLOOD ORDERABLE S Final Result Performing Organization Address [facility] de Phone Number [facility] [employer] [facility] [address] [place] [address] * Magnesium (11/12/2024 9:39 AM METAL RIVETING MACHINE OPERATOR) Magnesium 2.2 1.5 - 2.5 mg/dL [facility] Blood 11/12/2024 9:39 AM METAL RIVETING MACHINE OPERATOR 11/12/2024 9:39 AM METAL RIVETING MACHINE OPERATOR Narrative [facility] - 11/13/2024 10:52 AM METAL RIVETING MACHINE OPERATOR FASTING:YES FASTING: YES us Amarilis Mcfarlane MD LAB BLOOD ORDERABLE S Final Result Performing Organization Address [facility] Phone Number [facility] [employer] [facility] [address] [place] [address] * (ABNORMAL) Vitamin B12 (11/12/2024 9:39 AM METAL RIVETING MACHINE OPERATOR) Vitamin B12 1,112(H) 200 - 1,100 pg/mL [facility] Blood 11/12/2024 9:39 AM METAL RIVETING MACHINE OPERATOR 11/12/2024 9:39 AM METAL RIVETING MACHINE OPERATOR Narrative [facility] - 11/13/2024 10:52 AM METAL RIVETING MACHINE OPERATOR FASTING:YES FASTING: YES us Amarilis Mcfarlane MD LAB BLOOD ORDERABLE S Final Result Performing Organization Address [facility] de Phone Number [facility] [address] [place] [address] * Creatine kinase (CK), total (11/12/2024 9:39 AM METAL RIVETING MACHINE OPERATOR) CK 51 20 - 243 U/L [facility] Blood 11/12/2024 9:39 AM METAL RIVETING MACHINE OPERATOR 11/12/2024 9:39 AM METAL RIVETING MACHINE OPERATOR Narrative [facility] - 11/13/2024 10:52 AM METAL RIVETING MACHINE OPERATOR FASTING:YES FASTING: YES us Amarilis Mcfarlane MD LAB BLOOD ORDERABLE S Final Result Performing Organization Address City/[facility]/ZIP Co de Phone Number [facility] [address] [place] [address] * (ABNORMAL) Lipid panel (11/12/2024 9:39 AM METAL RIVETING MACHINE OPERATOR) Pathologist [facility] Cholesterol 175 <200 mg/dL [facility] HDL 55 > OR = 50 mg/dL [facility] Triglycerides 76 <150 mg/dL [facility] LDL 103(H) mg/dL (calc) [facility] Comment: Reference range: <100 Desirable range <100 mg/dL for primary prevention; <70 mg/dL for patients with CHD or diabetic patients with > or = 2 CHD risk factors. LDL-C is now calculated using the Eric-Kristopher calculation, which is a validated novel method providing better accuracy than the Friedewald equation in the estimation of LDL-C. Eric SS et al. LEXX. 2013;310(19): 1352-1727 (http://education.CashEdge.Fewzion/faq/VPG644) Chol/HDL ratio 3.2 <5.0 (calc) [facility] Non-HDL, (LDL+VLDL) 120 <130 mg/dL (calc) [facility] Comment: For patients with diabetes plus 1 major ASCVD risk factor, treating to a non-HDL-C goal of <100 mg/dL (LDL-C of <70 mg/dL) is considered a therapeutic option. Blood 11/12/2024 9:39 AM METAL RIVETING MACHINE OPERATOR 11/12/2024 9:39 AM METAL RIVETING MACHINE OPERATOR Narrative [facility] - 11/13/2024 10:52 AM METAL RIVETING MACHINE OPERATOR FASTING:YES FASTING: YES us Amarilis Mcfarlane MD LAB BLOOD ORDERABLE S Final Result [facility] [address] [place] [address] * (ABNORMAL) TSH (10/29/2024 12:31 PM METAL RIVETING MACHINE OPERATOR) TSH 7.74(H) 0.40 - 4.50 mIU/L [facility] Blood 10/29/2024 12:3 1 PM METAL RIVETING MACHINE OPERATOR 10/29/2024 12:31 PM METAL RIVETING MACHINE OPERATOR Angela PIZARRO LAB BLOOD ORDERABLES Milagros l Result Performing Organization Address [facility]/ZIP Co de Phone Number QUEST [facility] [address] [place] [address] * T4, free (10/29/2024 12:31 PM METAL RIVETING MACHINE OPERATOR) Free T4 1.3 0.8 - 1.8 ng/dL [facility] Blood 10/29/2024 12:3 1 PM METAL RIVETING MACHINE OPERATOR 10/29/2024 12:31 PM METAL RIVETING MACHINE OPERATOR Angela PIZARRO LAB BLOOD ORDERABLES Milagros l Result Performing Organization Address [facility] de Phone Number QUEST [facility] [address] [place] [address] * ECG 12 lead (10/28/2024 9:29 AM METAL RIVETING MACHINE OPERATOR) Bairon Muhammad MD ECG ORDERABLES Final R esult * DEVICE CHECK - IN OFFICE (10/28/2024 7:51 AM METAL RIVETING MACHINE OPERATOR) Anatomical Region Laterality Modality Other 10/28/2024 2:00 AM METAL RIVETING MACHINE OPERATOR Narrative 11/01/2024 7:23 PM METAL RIVETING MACHINE OPERATOR Interpretation Summary: Battery and Leads (BL) Less than 1 year of battery longevity noted --- battery longevity estimate: 5 months Normal parameters identified on lead(s) Presenting Rhythm (ID) Atrial Sensing-Ventricular Sensing (-VS) --- Underlying rhythm: NSR Procedure Note Bairon Muhammad MD - 11/01/2024 Interpretation Summary: Battery and Leads (BL) Less than 1 year of battery longevity noted --- battery longevityestimate: 5 months Normal parameters identified on lead(s) Presenting Rhythm (ID) Atrial Sensing-Ventricular Sensing (-VS) --- Underlying rhythm: NSR us Brandy Jj MD [facility] PROCEDURES Final Result * Screening Mammogram Bilateral [place] (07/16/2024 9:37 AM METAL RIVETING MACHINE OPERATOR) Anatomical Region Laterality Modality Breast Bilateral Mammography Impressions 07/16/2024 5:12 PM METAL RIVETING MACHINE OPERATOR BI-RADS ATLAS category (overall): 1 - Negative There is no mammographic evidence of malignancy. A 1 year screening mammogram is recommended. The patient has been or will be contacted. We recommend annual screening mammography for women at average risk of breast cancer beginning at age 40, based on guidelines of the [place] [employer] (ACR Practice Parameter for the Performance of Screening and Diagnostic Mammography) and [place] [employer]. For women with and elevated risk of breast cancer, please refer to the ACR Practice Parameter for specific screening recommendations. The patient will be entered into a reminder system with a target due date of 1 year for her next screening exam. Narrative 07/16/2024 5:12 PM METAL RIVETING MACHINE OPERATOR Screening Mammogram Bilateral W [place]: 07/16/24 The [...] a test for HCV RNA (test code 85038) is suggested. For additional information please refer to http://education.[employer]/faq/RVK31f3 (This link is being provided for informational/ educational purposes only.) Blood 06/04/2022 9:22 AM CDT 06/04/2022 9:25 AM CDT Narrative [facility] - 06/05/2022 10:11 AM CDT FASTING:YES FASTING: YES Amarilis Mcfarlane MD LAB MICROBIOLOGY - GENERAL ORDERABLES Final Result [facility] [address] [place] [address] * Dexa Axial Skeleton Bone Density 1 or 2 Site (01/31/2022 9:03 AM CDT) Anatomical Region Laterality Modality Body N/A Mammography 01/31/2022 3:21 PM CDT Narrative 01/31/2022 3:21 PM CDT EXAM DESCRIPTION: DEXA AXIAL SKELETON BONE DENSITY 1 OR MORE SITES REASON FOR STUDY: 66 y/o year old F with given history of screening. 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 TB: TB Report ID: [id number] Reading Location: [facility] [place] Procedure Note MiddletonAmrita MD - 01/31/2022 EXAM DESCRIPTION: DEXA AXIAL SKELETON BONE DENSITY 1 OR MORE SITES REASON FOR STUDY: 66 y/o year old F with given history ofscreening. 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 TB: TB Report ID: [id number] [facility] Amarilis Mcfarlane MD IMG DXA PROCEDURES Final Result * Colonoscopy (06/27/2021) Anatomical Region Laterality Modality Other us Historical Provider ENDOSCOPY PROCEDURES Milagros l Result from Last 3 Months or Most Recently Relevant to Health Maintenance Insurance MEDICARE [facility] MEDICARE [facility] [place] [address] [employer]AU[employer] Care Teams Call Center Support Representative Relationship Specialty Start Date End Date Amarilis Mcfarlane MD [facility] [address] [place], [place] [id number] PCP - General Family Medicine 06/29/20 Bayron Barclay DO [address] [place] [address] MEDICAL ONCOLOGY, [facility] [address] [place] [address] Medical Oncologist/Military Nurse Hematology and Oncology 04/28/23
--- OUTSIDE RECORDS SUMMARY | 2024-12-27 09:02 | XMS_ITS | Encounter Summary ---
Author Organization [facility] Healthcare Address [address] [place] [address] Care Team Providers Care Band Sawing Machine Operator Name Role Phone Amarilis Mcfarlane MD Primary Care Provi julito Bayron Barclay DO Unavailable [phone] Encounter Details Date Type Department Care Team (Late st Contact Info) Description 11/01/2024 Results Follow-Up [facility] Family Medicine [address] [address] Angela Garrison PA [address] [address] Social History Tobacco Use Types Packs/Day [...] on file Legal Sex Female 7:51 AM RN [facility] Gender Identity Female 06/06/2023 10:34 AM CDT Sexual Orientation Straight 06/06/2023 10 :34 AM CDT documented as of this encounter Plan of Treatment Not on file documented as of this encounter Visit Diagnoses Not on filedocumented in this encounter Care Teams Band Sawing Machine Operator Relationship Specialty Start Date End Date Amarilis Mcfarlane MD [facility] [address] [place] [address] PCP - General Family Medicine 06/29/20 Bayron Barclay DO [address] [place] [address] MEDICAL ONCOLOGY, [facility] [address] [place] [address] Medical Oncologist/Computer Security Manager Hematology and Oncology 04/28/23 documented as of this encounter
--- OUTSIDE RECORDS SUMMARY | 2024-12-27 09:02 | XMS_ITS | Encounter Summary ---
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
--- OUTSIDE RECORDS SUMMARY | 2024-12-27 09:02 | XMS_ITS | Encounter Summary ---
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 Never 12/21/2024 9:23 AM Yessy Mcclelland MA Q2: How many drinks containing alcohol do you have on a typical day when you are drinking? Patient does not drink 12/21/2024 9:23 AM Yessy Mcclelland MA Q3: How often do you have six or more drinks on one occasion? Never 12/21/2024 9:23 AM Yessy Mcclelland MA documented as of this encounter Plan of Treatment Not on file documented as of this encounter Visit Diagnoses Not on filedocumented in this encounter Care Teams Crystal Attacher Relationship Specialty Start Date End Date Amarilis Mcfarlane MD [address] [place] [address] PCP - General Family Medicine 06/29/20 Bayron Barclay DO [address] [place] [address] MEDICAL ONCOLOGY, [address] [address] Medical Oncologist/Computer Operations Analyst Hematology and Oncology 04/28/23 documented as of this encounter
--- OUTSIDE RECORDS SUMMARY | 2024-12-27 09:02 | XMS_ITS | Clinical Summary ---
Author Organization [facility] Address [address] [place] [address] Care Team Providers Care Tool Room Attendant Name Role Phone Amarilis Mcfarlane MD Primary Care Provider Allergies Active Allergy Reactions Criticality Noted Date Comments Sulfasalazine Other (see comment) Low 06/17/2015 Episodes of Torsads - Prologs the QT interval Medications potassium chloride CR (K-TAB) 10 MEQ Tab CR tablet Take 1 tablet (10 mEq total) by mouth daily. 4 Active cloNIDine (CATAPRES) 0.1 MG tablet TAKE 1 TABLET(0.1 MG) BY MOUTH DAILY NEEDED FOR HIGH BLOOD PRESSURE 5 Active dicyclomine (BENTYL) 10 MG capsule TAKE 1 CAPSULE BY MOUTH THREE TIMES DAILY FOR ABDOMINAL DISCOMFORT 4 Active SYNTHROID 100 MCG tablet TAKE 1 TABLET BY MOUTH DAILY PROGRAMMER OR ANALYST BEFORE BREAKFAST Active losartan (COZAAR) 100 MG tablet Take 1 tablet (100 mg total) by mouth daily. 5 Active meclizine (ANTIVERT) 25 MG tablet TAKE 1 TABLET(25 MG) BY MOUTH THREE TIMES DAILY NEEDED FOR DIZZINESS 5 Active omeprazole (PRILOSEC) 20 MG capsule Take 1 capsule (20 mg total) by mouth. 5 Active Active Problems Problem Noted Date Diagnosed Date SSS (sick sinus syndrome) (CMS/HCC HHS/HCC) 12/2024 Overview (12/10/2024): Medtronic Evera ICD implanted 07/18/2014 for SSS Pericardial effusion (HHS/HCC) 08/19/2024 Mixed hyperlipidemia 07/22/2024 Postoperative hypothyroidism 01/01/2024 Tingling in extremities 01/01/2024 Sphincter of Oddi dysfunction 07/22/2023 Overview (11/25/2024): Followed by GI Primary hypertension 05/26/2023 H/O cardiac arrest 11/13/2021 Family history of heart disease 05/11/2021 Nonsustained ventricular tachycardia (CMS/HCC HH S/HCC) 05/11/2021 PVC's (premature ventricular contractions) 05/11 QT prolongation 05/11/2021 GERD (gastroesophageal reflux disease) ICD (implantable cardioverter-defibrillator) in place 05/27/2016 Overview (12/10/2024): Medtronic Evera ICD implanted 07/18/2014 for SSS History of thyroid cancer 06/17/2015 Defibrillator discharge 06/17/2015 Encounters Date Type Department Care Team Description 12/10/2024 Scan [facility] [address] Scanned, Doc Pccl 12/09/2024 9:15 AM CDT Office Visit [facility], [address] [address] Felix Chand MD Ventricular Tachycardia (Medt ICD - New Consult ); Arrhythmia 12/09/2024 Telephone [facility], [address] [address] Felix Chand MD Information (ANESTHESIA NEEDED FOR GEN CHG) 12/09/2024 Travel from Last 3 Months Family History Medical History Relation Comments Cancer Brother 1 Lymphoma Diabetes Brother 2 Heart Disease Brother 2 DE Brother 2 Diabetes Brother 3 Diabetes Father Heart Disease Father DE Father Hyperlipidemia Mother Hypertension Mother Stroke Paternal Grandfather Stroke Paternal Grandmother Cancer Sister Breast Relation Status Comments Brother 1 Brother 2 Brother 3 Father Mother Paternal Grandfather Paternal Grandmother Sister Social History Tobacco Use Types Packs/Day Years Used Date Smoking Tobacco: Never Smokeless Tobacco: Never Alcohol Use Standard Drinks/Week Comments Never 0 (1 standard drink = 0.6 oz pur e alcohol) Comments Unknown Sex and Gender Information Value Date Recorded Sex Assigned at Not on file 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 Gender Identity Not on file Sexual Orientation Not on file Last Filed Vital Signs Vital Sign Reading Time Taken Comments Blood Pressure 128/80 12/09/2024 9:16 AM CDT Pulse 88 12/09/2024 9:16 AM CDT Temperature - - Respiratory Rate - - Oxygen Saturation 98% 12/09/2024 9:16 AM CDT Inhaled Oxygen Concentration - - Weight 73.9 kg (163 lb) 12/09/2024 9:16 AM CDT Height 167.6 cm (5' 6 ) 12/09/2024 9:16 AM CDT Body Mass Index 26.31 12/09/2024 9:16 AM CDT Plan of Treatment Upcoming Encounters Date Type Department Care Team (Late st Contact Info) Description 03/14/2025 2:10 PM CDT Allied Health/Nurse Visit [facility], [address] [address] Felix Chand MD [facility]. [address] [address] 12/15/2025 9:45 AM CDT Office Visit [facility], [address] [address] Felix Chand MD [facility]. [address] [address] Health Maintenance Due Date Last Done Comments Colorectal Cancer Screening Colonoscopy (10 Years) 1955 Hepatitis C 1974 Zoster Vaccines (1 of 2) 2006 Annual Medicare Wellness Visit 2021 COVID-19 Vaccine ( season) 2024 09/15/2023, 11/13/2020, 10/21/2020 Mammogram Screening 07/16/2026 07/16/2024, 07/15/2023, 07/12/2022, Additional history exists DTaP, Tdap and Td Vaccines (2 - Td or Tdap) 09/13/2033 09/13/2023, 09/03/2023 Dexa Scan (General) Completed 01/31/2022, Pneumococcal Vaccine: 50+ Years Completed 12/09/2022, 10/31/2021 RSV Immunization or 60+ Years Completed 09/15/2023 Meningococcal B Vaccine Aged Out No l onger eligible based on patient's age to complete this topic Meningococcal Vaccine Aged Out No adamaris pam eligible based on patient's age to complete this topic RSV Immunizations Under 20 Months Aged Out No longer eligible based on patient's age to complete this topic Medical Devices Implanted Type Area Industrial Engineering Device Identifier Shelf Expiration Date Model / Serial / Lot Luz-Jcl-Zkcji- Mri-07/18/2014 Implanted:Qty: 1 on 07/18/2014 by Yoan Bell MD ICD MEDTRONIC CARDIAC RHYTHM AND HEART FAILURE - DIV M [id number] / [id number] / Rv Lead Qinzczm-Yhq-Uo i-07/18/2014 Implanted:Qty: 1 on 07/18/2014 by Yoan Bell MD Lead Implant MEDTRONIC CARDIAC RHYTHM AND HEART FAILURE - DIV M [id number] / [id number] / Description:RV-[facility] Lead Cmmbztd-Kmn-Zq i-07/18/2014 Implanted:Qty: 1 on 07/18/2014 by Yoan Bell MD Lead Implant MEDTRONIC CARDIAC RHYTHM AND HEART FAILURE - DIV M [id number] / [id number] / Description:RA-Appendage Procedures Procedure Name Priority Date/Time Associated Diagnosis Comments ELECTROCARDIOGRAM (NON MIDMARK ACQUIRED) Routine 12/09/2024 9:20 AM CDT PVC's (premature ventricular contractions) from Last 3 Months Results * ELECTROCARDIOGRAM (12/09/2024 9:20 AM CDT) 12/09/2024 9:20 AM CDT Narrative [facility] - 12/11/2024 4:28 PM CDT [facility] Test Date: 2024-12-09 Pat Name: YASMINE THORPE Department: 112 Room: Gender: Female Clinical Lab Scientist: : [id number] Requested By: FELIX CHAND Order Number: [id number] Reading DARCY Cahnd Measurements Intervals [place] Rate: 81 P: 68 VA: 166 QRS: -18 QRSD: 85 T: 58 QT: 396 QTc: 461 Interpretive Statements SINUS RHYTHM POSSIBLE LEFT ATRIAL ENLARGEMENT ANTEROSEPTAL MYOCARDIAL INFARCTION, OF INDETERMINATE AGE Procedure Note Felix Chand MD - 12/11/2024 [facility] Test Date: 2024-12-09 Pat Name: YASMINE MARTINESSUSANNA Department: 112 Room: Gender: Female Clinical Lab Scientist: : [id number] Requested By: FELIX CHAND Order Number: [id number] Reading DARCY Chand Measurements Intervals [place] Rate: 81 P: 68 VA: 166 QRS: -18 QRSD: 85 T: 58 QT: 396 QTc: 461 Interpretive Statements SINUS RHYTHM POSSIBLE LEFT ATRIAL ENLARGEMENT ANTEROSEPTAL MYOCARDIAL INFARCTION, OF INDETERMINATE AGE Felix Chand MD PROCEDURES-ORDERABLE NO YONATHAN RGE Final Result [facility] from Last 3 Months Insurance MEDICARE [employer] Care Teams Tool Room Attendant Relationship Specialty Start Date End Date Amarilis Mcfarlane MD [address] [facility] [address] [place] [address] PCP - General FAMILY PRACTICE 12/09/24
--- OUTSIDE RECORDS SUMMARY | 2024-12-27 09:02 | XMS_ITS | Encounter Summary ---
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 Gender Identity Female 06/06/2023 10:34 AM CDT Sexual Orientation Straight 06/06/2023 10 :34 AM CDT documented as of this encounter Plan of Treatment Not on file documented as of this encounter Visit Diagnoses Not on filedocumented in this encounter Care Teams Rvda Master Certified Rv Technician Relationship Specialty Start Date End Date Amarilis Mcfarlane MD [facility] [address] [place] [address] PCP - General Family Medicine 06/29/20 Bayron Barclay DO [address] [place] [address] MEDICAL ONCOLOGY, [facility] [address] [place] [address] Medical Oncologist/Bead Forming Machine Set Up Operator Hematology and Oncology 04/28/23 documented as of this encounter
--- OUTSIDE RECORDS SUMMARY | 2024-12-27 09:02 | XMS_ITS | Encounter Summary ---
Author Organization [facility] Care Team Providers Care Renewals Specialist Name Role Phone Brielle Mack MD Primary Care Provider Amarilis Mcfarlane MD Primary Care Provi julito Bayron Barclay DO Unavailable [phone] Encounter Details Date Type Department Care Team (Latest Contact Info) Description 11/11/2016 Orders Only [facility] ProviderIvonne MD [address] [place] [address] Social History Tobacco Use Types Packs/Day Years Used Date Smoking Tobacco: Never Assessed Comments Unknown Sex and Gender Information Value Date Recorded Sex Assigned at Not on file 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 Historical Provider [facility] YAMILET ZHANG Final Result documented in this encounter Visit Diagnoses Not on filedocumented in this encounter Additional Health Concerns Infection Onset Date Last Indicated Resolved Time COVID: Suspected 09/13/2021 09/13/2021 09/14/2021 12:34 AM FINAL INSPECTOR AND TESTER COVID: Suspected 05/25/2024 05/25/2024 05/25/2024 9:56 AM CDT documented as of this encounter Care Teams Renewals Specialist Relationship Specialty Start Date End Date Brielle Mack MD PCP - General 10/23/17 06/28/20 Amarilis Mcfarlane MD [facility] [address] [place], [place] [id number] PCP - General Family Medicine 06/29/20 Bayron Barclay DO [address] [place] [address] MEDICAL ONCOLOGY, [facility] [address] [place] [address] Medical Oncologist/Nurse Aide Evaluator Hematology and Oncology 04/28/23 documented as of this encounter
--- OUTSIDE RECORDS SUMMARY | 2024-12-27 09:02 | XMS_ITS | Encounter Summary ---
Author Organization [facility] Healthcare Address [address] [place] [address] Care Team Providers Care Plant Physiologist Name Role Phone Amarilis Mcfarlane MD Primary Care Provi julito Bayron Barclay DO Unavailable [phone] Encounter Details Date Type Department Care Team (Latest Contact Info) Description 11/25/2024 Results Follow-Up [facility] Medical Group Family Medicine [address] [address] Christine Katz PA [address] [address] Postoperative hypothyroidism (Primary Dx) Social History Tobacco Use Types Packs/Day Years Used Date Smoking Tobacco: Never Smokeless Tobacco: Never Alcohol Use Standard Drinks/Week Comments No 0 (1 standard drink = 0.6 oz pur e alcohol) AUDIT-C Answer Date Recorded Q1: How often do you have a drink containing alcohol? Never 11/25/2024 Q2: How many drinks containi ng alcohol do you have on a typical day when you are drinking? Patient does not drink Q3: How often do you have si x or more drinks on one occasion? 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 Never 11/25/2024 10:49 AM Yessy Mcclelland MA Q2: How many drinks containing alcohol do you have on a typical day when you are drinking? Patient does not drink 11/25/2024 10:49 AM Yessy Mcclelland MA Q3: How often do you have six or more drinks on one occasion? Never 11/25/2024 10:49 AM Yessy Mcclelland MA documented as of this encounter Ordered Prescriptions Prescription Sig Dispense Quantity Refills Last Filled Start Date End Date Synthroid 100 mcg tabletIndications:Po stoperative hypothyroidism Take 1 tablet (100 mcg total) by mouth business planner before breakfast 90 tablet 3 11/25/2024 documented in this encounter Plan of Treatment Not on file documented as of this encounter Visit Diagnoses Diagnosis Postoperative hypothyroidism- Primary Postsurgical hypothyroidism documented in this encounter Discontinued Medications Medication Sig Discontinue Reason Start Date End Da te Synthroid 125 mcg tabletIndications:Myalgia ,Postoperative hypothyroidism Take 1 tablet (125 mcg total) by mouth business planner before breakfast Alternate therapy 11/25/2024 11/25/2024 documented as of this encounter Care Teams Plant Physiologist Relationship Specialty Start Date End Date Amarilis Mcfarlane MD [address] [place] [address] PCP - General Family Medicine 06/29/20 Bayron Barclay DO [facility] MEDICAL ONCOLOGY, [address] [place] [address] Medical Oncologist/Pump Runner Hematology and Oncology 04/28/23 documented as of this encounter
--- OUTSIDE RECORDS SUMMARY | 2024-12-27 09:02 | XMS_ITS | Clinical Summary ---
Author Organization [facility] Address [address] [place] [address] Care Team Providers Care Machine Specialist Name Role Phone Brielle Mack MD Primary Care Provider [phone] [facility],non-owned Affiliates and Associated Physician Practices is amultiple site organization consisting of ambulatory clinics and hospital sitesin [place], [place], [place] and [place]. This disclosure is being madepursuant to the Care Everywhere program and may not contain all information available regarding this patient. Last updated 18.[facility] Allergies Active Allergy Reactions Criticality Noted Date Comments Sulfa Drugs Cardiac Injury 06/17/2015 Episodes of Torsads - Medications * Be aware that medications may not be up to date on this document. Alwaysverify current medications with the patient. propranolol (INDERAL) 10 MG tablet Take 10 mg by mouth once daily as needed Active vitamin D, cholecalciferol , 2000 UNITS tablet Take 2,000 Units by [...] = 0.6 oz pur e alcohol) Comments No Sex and Gender Information Value Date Recorded Sex Assigned at Not on file Legal Sex Female 9:47 AM CDT Gender Identity Not on file Sexual Orientation [...] VACCINE (1 of 2) 2006 COVID-19 VACCINE (2023-2 5 season) 2024 DEPRESSION SCREENING 09/08/2024 INFLUENZA VACCINE (Season Ended) 2025 06/08/20 Respiratory Syncytial Virus (RSV) Vaccine Pt: or [...] to complete this topic MENINGOCOCCAL (Group B) VACC INE SHARED DECISION-MAKING Aged Out No longer eligibl e based on patient's age to complete this topic MENINGOCOCCAL GROUPS A/C/Y/W VACCINE Aged Out No longer eligible b ased on patient's age to complete this topic Insurance [facility] Address: [facility] [address] [place] [address] [employer] Care Teams Machine Specialist Relationship Specialty Start Date End Date Brielle Mack MD PCP - General Family Medicine 01/08/19
--- OUTSIDE RECORDS SUMMARY | 2024-12-27 09:02 | XMS_ITS | Encounter Summary ---
Author Organization [facility] Address [address] [place] [address] Phone Care Team Providers Care Cnc Manager Name Role Phone Amarilis Mcfarlane MD Primary Care Provi julito Bayron Barclay DO Unavailable [phone] Encounter Details Date Type Department Care Team (Late st Contact Info) Description 12/13/2024 Results Follow-Up [facility] Cardiology [address] [facility] Medical Office Building [address] [place] [address] Bairon Muhammad MD [address] [facility] [address] [place] [address] Social History Tobacco Use Types Packs/Day Years [...] on file 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 [address] [place] [address] Medical Oncologist/Statistical Consultant Hematology and Oncology 04/28/23 documented as of this encounter
--- OUTSIDE RECORDS SUMMARY | 2024-12-27 09:02 | XMS_ITS | Encounter Summary ---
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 Never 12/21/2024 9:23 AM SAQIBT Yessy Swift MA Q2: How many drinks containing alcohol do you have on a typical day when you are drinking? Patient does not drink 12/21/2024 9:23 AM SAQIBT Yessy Swift MA Q3: How often do you have six or more drinks on one occasion? Never 12/21/2024 9:23 AM CDT Yessy Swift MA documented as of this encounter Miscellaneous Notes * Telephone Encounter - Amarilis Mcfarlane MD - 12/21/2024 4:44 PM CDT Noted, thank you. documented in this encounter Plan of Treatment Not on file documented as of this encounter Visit Diagnoses Not on filedocumented in this encounter Care Teams Social And Human Services Assistant Relationship Specialty Start Date End Date Amarilis Mcfarlane MD [facility] [address] [place] [address] PCP - General Family Medicine 06/29/20 Bayron Barclay DO [address] [place] [address] MEDICAL ONCOLOGY, [facility] [address] [place] [address] Medical Oncologist/Tax Clerk Hematology and Oncology 04/28/23 documented as of this encounter
--- OUTSIDE RECORDS SUMMARY | 2024-12-27 09:02 | XMS_ITS | Encounter Summary ---
Author Organization [facility] Facility Care Team Providers Care V/Stol Landing Signal Officer Name Role Phone Brielle Mack MD Primary Care Provider [phone] Amarilis Mcfarlane MD Primary Care Provi julito Bayron Barclay DO Unavailable [phone] Encounter Details Date Type Department Care Team (Latest Contact Info) Description 07/02/2017 Orders Only [facility] CLINCONV ProviderIvonne MD [address] [place] [id number] Social History Tobacco Use Types Packs/Day Years Used Date Smoking Tobacco: Never Assessed Comments Unknown Sex and Gender Information Value Date Recorded Sex Assigned at Not on file Legal 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 Female 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 Gender Identity Female 06/06/2023 10:34 AM CDT [...] COVID: Suspected 09/13/2021 09/13/2021 09/14/2021 12:34 AM EVENT MARKETING SPECIALIST COVID: Suspected 05/25/2024 05/25/2024 05/25/2024 9:56 AM CDT documented as of this encounter Care Teams V/Stol Landing Signal Officer Relationship Specialty Start Date End Date Brielle Mack MD PCP - General 10/23/17 06/28/20 Amarilis Mcfarlane MD [address] [place] [address] PCP - General Family Medicine 06/29/20 Bayron Barclay DO [address] [place] [address] MEDICAL ONCOLOGY, [facility] [address] [place] [address] Medical Oncologist/Waiter/Waitress First Class Hematology and Oncology 04/28/23 documented as of this encounter
--- OUTSIDE RECORDS SUMMARY | 2024-12-27 09:02 | XMS_ITS | Referral Summary ---
Author Organization [facility] Address [address] [place] [address] Care Team Providers Care Fruit Washer Name Role Phone Amarilis Mcfarlane MD Primary Care Provi julito Bayron Barclay DO Unavailable [phone] Encounters Date Type Department Care Team Description 12/23/2024 Orders Only [facility] Family Medicine [address] [place] [phone] Amarilis Mcfarlane MD Abnormal mammogram (Primary Dx) 12/23/2024 Telephone [facility] Medicine [address] [place] [phone] Amarilis Mcfarlane MD 12/22/2024 Results Follow-Up [address] [phone] Amarilis Mcfarlane MD 12/21/2024 10:00 AM CDT Lab [facility] OP Lab [address] [place] [address] Postoperative hypothyroidism 12/21/2024 Results Follow-Up [facility] Medicine [address] [place] [phone] Amarilis Mcfarlane MD 12/21/2024 9:30 AM CDT Office Visit [address] [phone] Christine Katz PA Mass of lower inner quadrant of left breast (Primary Dx); History of thyroid cancer; Statin intolerance; Postoperative hypothyroidism; Primary insomnia; Mixed hyperlipidemia 12/20/2024 Results Follow-Up [address] [phone] Christine Katz PA 12/16/2024 Orders Only [address] [phone] Amarilis Mcfarlane MD Postoperative hypothyroidism (Primary Dx) 12/14/2024 6:59 AM CDT - 12/14/2024 11:59 PM CDT Hospital Encounter [facility] Medical Office Building [address] [address] Mixed hyperlipidemia; ICD (implantable cardioverter-defibrill ator) in place; Torsades de pointes (HCC); Myalgia; Statin intolerance Discharge Disposition: Discharge to home or self care 12/13/2024 Results Follow-Up [facility] Cardiology [address] [facility] Office Building [address] [place] [address] Bairon Muhammad MD 12/10/2024 Telephone [facility] Cardiology [facility] Advanced Medicine 8th [place] [address] [place] [address] Lisy Diego 12/10/2024 Telephone [facility] Cardiology [address] [facility] Medicine 8th [place] [address] [place] [address] Bairon Muhammad MD 12/08/2024 2:30 PM CDT Office Visit [address] [phone] Amarilis Mcfarlane MD Mixed hyperlipidemia (Primary Dx); Myalgia; Postoperative hypothyroidism; Gastroesophageal reflux disease without esophagitis; Primary hypertension 11/29/2024 Orders Only [facility] Cardiology [address] [facility] 8th [place] [address] [place] [address] Nathan Irvin MD 11/25/2024 Results Follow-Up [address] [phone] Christine Katz PA Postoperative hypothyroidism (Primary Dx) 11/25/2024 1:00 PM CDT Lab [facility] Lab [address] [place] [address] Myalgia; Postoperative hypothyroidism 11/25/2024 11:00 AM CDT Office Visit [address] [phone] Christine Katz PA Myalgia (Primary Dx); Postoperative hypothyroidism; Mixed hyperlipidemia; Statin intolerance; ICD (implantable cardioverter-defibrill ator) in place; Torsades de pointes (HCC) 11/14/2024 Results Follow-Up [address] [phone] Amarilis Mcfarlane MD 11/03/2024 Telephone [facility] Cardiology [address] [facility] [address] [place] [address] Agnes Milton MD Med Management; Muscle Pain; Spasms 11/03/2024 10:00 AM JIGGER MACHINE OPERATOR Office Visit [address] [phone] Amarilis Mcfarlane MD Mixed hyperlipidemia (Primary Dx); Primary hypertension; Postoperative hypothyroidism; Palpitations; PVC's (premature ventricular contractions); Low serum vitamin B12; Hypocalcemia; Myalgia; Postmenopausal status 11/01/[address] [phone] Amarilis Mcfarlane MD 11/01/2024 Results Follow-Up [address] [phone] Angela Garrison PA 10/28/2024 8:45 AM JIGGER MACHINE OPERATOR Office Visit [facility] Cardiology [address] [place] [address] Office Building [address] [place] [address] Bairon Muhammad MD [place] (ventricular tachycardia) (HCC) (Primary Dx); ICD (implantable cardioverter-defibrill ator) in place 10/28/2024 8:15 AM JIGGER MACHINE OPERATOR Ancillary Procedure [facility] Cardiology [address] [place] [address] Office Building [address] [place] [address] [place] (ventricular tachycardia) (HCC) (Primary Dx); Encounter for fitting or adjustment of implantable cardioverter-defibrill ator (ICD) 10/27/[address] [phone] Amarilis Mcfarlane MD 10/04/2024 1:30 PM JIGGER MACHINE OPERATOR Office Visit [address] [phone] Angela Garrison PA Primary hypertension (Primary Dx); Postoperative hypothyroidism; Low serum calcium; Low bone mass; BMI 28.0-28.9,adult; Low serum vitamin B12; Medication monitoring encounter; Mixed hyperlipidemia from Last 3 Months Allergies Active Allergy [...] 1 tablet (100 mcg total) by mouth women's activities adviser before breakfast 90 tablet 3 025 Active [...] 1 tablet (125 mcg total) by mouth women's activities adviser before breakfast Thyroid Function [place]; Future Erythrocyte sedimentation rate; Future Comprehensive metabolic panel; Future BMI 28.0-28.9,adult 10/04/2024 Assessment & Plan (10/04/2024 2:48 PM JIGGER MACHINE OPERATOR): BMI Follow-up includes: education provided. Pericardial effusion 08/19/2024 Mixed hyperlipidemia 07/22/2024 Assessment & Plan (12/21/2024 12:26 PM CDT): Statin therapy is not indicated despite elevated ASCVD score due to no evidence of coronary calcium calcifications on CT coronary calcium score Repeat coronary calcium score in 5 years which would be 2030 Assessment & Plan (12/08/2024 3:09 PM CDT): Assessment & Plan (11/25/2024 11:51 AM CDT): Orders: CT Coronary Calcium Scoring; Future Torsades de pointes 02/05/2024 Assessment & Plan (11/25/2024 11:51 AM CDT): Orders: CT Coronary Calcium Scoring; Future Postoperative hypothyroidism 01/01/2024 Assessment & Plan (12/21/2024 12:26 PM CDT): Assessment & Plan (12/08/2024 3:09 PM CDT): Orders: Thyroid Function [place]; Future Assessment & Plan (11/25/2024 11:51 AM CDT): Orders: Synthroid 125 mcg tablet; Take 1 tablet (125 mcg total) by mouth women's activities adviser before breakfast Thyroid Function [place]; Future Erythrocyte sedimentation rate; Future Comprehensive metabolic panel; Future Assessment & Plan (10/04/2024 2:50 PM JIGGER MACHINE OPERATOR): Chronic. Elevated mildly at last 2 lab checks. - Increase levothyroxine from 100-112 mcg daily - Repeat labs in 6 weeks Tingling in extremities 01/01/2024 Bilateral carpal tunnel syndrome 01/01/2024 Sphincter of Oddi dysfunction 07/22/2023 Overview (07/22/2024): Followed by GI Primary hypertension 05/26/2023 Assessment & Plan (12/08/2024 3:09 PM CDT): Assessment & Plan (10/04/2024 2:52 PM JIGGER MACHINE OPERATOR): Chronic. Mostly controlled. Patient's average [...] week. Assessment & Plan (07/22/2023 3:39 PM JIGGER MACHINE OPERATOR): Chronic, stabe Continue current regimen Assessment & Plan (06/10/2023 11:28 AM CDT): Chronic, improved Continue losartan Continue clonidine only if needed Continue to follow with Cardiology Update me with any changes Call for questions Low bone mass 05/30/2022 Assessment & Plan (10/04/2024 2:49 PM JIGGER MACHINE OPERATOR): Chronic. Discussed recommendation for 500 mg of calcium daily or 3 servings of calcium in diet daily. Discussed recommendation for vitamin-D 2400-1308 international units daily. She may try to get this all from a multivitamin. Assessment & Plan (07/22/2023 3:39 PM JIGGER MACHINE OPERATOR): Chronic, stable Continue vitamin d Follow up testing ordered Assessment & Plan (05/30/2022 10:13 AM CDT): Continue vitamin d, calcium Strength training, walking H/O cardiac arrest 11/13/2021 Assessment & Plan (07/22/2023 3:37 PM JIGGER MACHINE OPERATOR): Chronic, stable Managed by cardiology Update me with any changes or concerns Assessment & Plan (05/30/2022 10:11 AM CDT): Following with cardiology Other headache syndrome 10/31/2021 Assessment & Plan (07/22/2023 3:39 PM JIGGER MACHINE OPERATOR): Acute, resolved Continue to monitor Update me if anything changes or worsens Assessment & Plan (05/30/2022 10:14 AM CDT): Occasional headaches Keep track of headaches Avoid triggers Update me if her symptoms change or worsen Assessment & Plan (10/31/2021 1:02 PM JIGGER MACHINE OPERATOR): Differential migraine versus cluster versus [...] 05/11/2021 Assessment & Plan (07/22/2023 3:40 PM JIGGER MACHINE OPERATOR): Chronic, stable Managed by cardiology S/p ICD placement Assessment & Plan (05/30/2022 10:13 AM CDT): S/p pacemaker Continue to follow with cardiology PVC's (premature ventricular contractions) 05/11 Assessment & Plan (07/22/2023 3:40 PM JIGGER MACHINE OPERATOR): Chronic, stable Managed by cardiology Update me with any changes or concerns Assessment & Plan (05/30/2022 10:13 AM CDT): S/p pacemaker Continue to follow with cardiology Nonsustained ventricular tachycardia 05/11/2021 Assessment & Plan (07/22/2023 3:39 PM JIGGER MACHINE OPERATOR): Chronic, stable Managed by cardiology S/p ICD placement Assessment & Plan (05/30/2022 10:13 AM CDT): S/p pacemaker Continue to follow with cardiology Family history of heart disease 05/11/2021 Assessment & Plan (07/22/2023 3:29 PM JIGGER MACHINE OPERATOR): Chronic, stable Managed by cardiology Continue current regimen Assessment & Plan (05/30/2022 10:10 AM CDT): Chronic, stable Continue to follow with cardiology Encounter for Medicare annual wellness exam 04/08 Overview (07/22/2024): Encouraged healthy diet and activity Please look into a power of assistant city attorney or living will Health Maintenance: Last mammogram:07/31, 08/01- WNL Last DEXA: 01/27- Low bone mass-ordered Last colonoscopy: 06/28-repeat in 10 years Last Tdap: encouraged Last pneumonia: up to date Last Shingrix: reviewed Last Flu: reviewed Last COVID: reviewed Assessment & Plan (07/22/2024 8:04 AM JIGGER MACHINE OPERATOR): Encouraged healthy diet and activity Please look into a power of assistant city attorney or living will Health Maintenance: Last mammogram:07/31, 08/01- WNL Last DEXA: 01/27- Low bone mass-ordered Last colonoscopy: 06/28-repeat in 10 years Last Tdap: encouraged Last pneumonia: up to date Last Shingrix: reviewed Last Flu: reviewed Last COVID: reviewed Assessment & Plan (07/22/2023 3:28 PM JIGGER MACHINE OPERATOR): Encouraged healthy diet and activity Please look into a power of assistant city attorney or living will Health Maintenance: Last mammogram:07/31- WNL Last DEXA: 01/27- Low bone mass Last colonoscopy: 06/28-repeat in 10 years Last Tdap: encouraged Last pneumonia: up to date Last Shingrix: reviewed Last Flu: reviewed Last COVID: reviewed Assessment & Plan (05/30/2022 10:09 AM CDT): Encouraged healthy diet and activity Please look into a power of assistant city attorney or living will Health Maintenance: Last mammogram:scheduled Last DEXA: 2020- Low bone mass Last colonoscopy: 06/28-repeat in 10 years Last Tdap: encouraged Last pneumonia: due second one Last Shingrix: reviewed Last Flu: reviewed Last COVID: reviewed Assessment & Plan (04/25/2021 2:08 PM CDT): Encouraged healthy diet and activity Please look into a power of assistant city attorney or living will Wear sun screen, [...] (heartburn) Assessment & Plan (07/22/2023 3:36 PM JIGGER MACHINE OPERATOR): Chronic, stable Continue prilosec for [...] untreated Assessment & Plan (10/31/2021 1:01 PM JIGGER MACHINE OPERATOR): With esophagitis and gastritis on her CT scan Continue Prilosec b.i.d. 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 aging room hand Update me after the visit Assessment & Plan (04/25/2021 12:16 PM CDT): Continue omeprazole Reviewed the risk and benefits of medication Grief 08/01/2020 Assessment & Plan (07/22/2023 3:37 PM JIGGER MACHINE OPERATOR): Chronic, stable Continue supportive care Assessment & Plan (05/30/2022 10:11 AM CDT): Improved, doing well with supportive care Assessment & Plan (04/25/2021 12:15 PM CDT): Patient with a significant amount of loss over the last year Continue supportive care Update me if her mood worsens or changes Assessment & Plan (08/01/2020 1:22 PM JIGGER MACHINE OPERATOR): Some of her symptoms may be related to her most recent loss- weight loss Continue to use the support around her Update me with any concerns ICD (implantable cardioverter-defibrillator) in place 05/27/2016 Overview (06/19/2022): Medtronic Dual ICD-Evera. Dx; Cardiac Arrest, [place]. DOI 07/18/2014-Dr Bell. CarePervacio remote is not working. Patient prefers office checks Q3 months. Assessment & Plan (11/25/2024 11:51 AM CDT): Orders: CT Coronary Calcium Scoring; Future Assessment & Plan (07/22/2023 3:38 PM JIGGER MACHINE OPERATOR): Chronic, stable Managed by cardiology [...] CDT): Assessment & Plan (07/22/2023 3:38 PM JIGGER MACHINE OPERATOR): Chronic, stable Managed by oncology Continue to monitor Assessment & Plan (05/30/2022 10:12 AM CDT): Chronic, stable Follows with oncology Continue synthroid Assessment & Plan (04/25/2021 2:10 PM CDT): Continue levothyroxine at current dose Continue to follow with Dr Barclay Resolved Problems Problem Noted Date Diagnosed Date Resolved Date Hypokalemia 06/02/2023 07/22/2024 Assessment & Plan (07/22/2023 3:38 PM JIGGER MACHINE OPERATOR): Chronic,s table Continue replacement History of torsades de pointes 05/08/2021 07/22/2024 Assessment & Plan (07/22/2023 3:38 PM JIGGER MACHINE OPERATOR): Chronic, stable Managed by cardiology S/p pacemaker Assessment & Plan (05/30/2022 10:12 AM CDT): S/p pacemaker Continue to follow with cardiology Allergic rhinitis 04/25/2021 07/22/2024 Assessment & Plan (07/22/2023 3:29 PM JIGGER MACHINE OPERATOR): Chronic, stable Asymptomatic Continue to monitor Assessment & Plan (05/30/2022 10:09 AM CDT): Chronic, stable Assessment & Plan (04/25/2021 2:11 PM CDT): Continue flonase Thyroid cancer ([facility]) 04/17/2018 Cardiac arrest 05/27/2016 11/13/2021 Assessment & [...] on file Legal Sex Female 7:51 AM JIGGER MACHINE OPERATOR Gender Identity Female 06/06/2023 10:34 [...] 12/21/2024 9:17 AM CDT Plan of Treatment Not on file Procedures [...] hypothyroidism LIPID PANEL Routine 11/12/2024 9:39 AM JIGGER MACHINE OPERATOR Mixed hyperlipidemia ERYTHROCYTE SEDIMENTATION RATE Routine 11/12/2024 9:39 AM JIGGER MACHINE OPERATOR Myalgia CRP (ACUTE PHASE) Routine 11/12/2024 9:3 9 AM JIGGER MACHINE OPERATOR Myalgia CREATINE KINASE (CK), TOTAL Routine 11/12/2024 9:39 AM JIGGER MACHINE OPERATOR Myalgia MAGNESIUM Routine 11/12/2024 9:39 AM JIGGER MACHINE OPERATOR Hypocalcemia PHOSPHORUS Routine 11/12/2024 9:39 AM JIGGER MACHINE OPERATOR Hypocalcemia PTH Routine 11/12/2024 9:39 AM JIGGER MACHINE OPERATOR Hypocalcemia VITAMIN D 25 HYDROXY Routine 11/12/2024 9:39 AM JIGGER MACHINE OPERATOR Hypocalcemia CALCIUM, IONIZED Routine 11/12/2024 9:39 AM JIGGER MACHINE OPERATOR Hypocalcemia VITAMIN B12 Routine 11/12/2024 9:39 AM JIGGER MACHINE OPERATOR Low serum vitamin B12 THYROID FUNCTION CASCADE Routine 11/12/2024 9:39 AM JIGGER MACHINE OPERATOR Postoperative hypothyroidism TSH Routine 10/29/2024 12:31 PM JIGGER MACHINE OPERATOR Postoperative hypothyroidism T4, FREE Routine 10/29/2024 12:31 PM JIGGER MACHINE OPERATOR Postoperative hypothyroidism ECG 12-LEAD Routine 10/28/2024 9:29 AM JIGGER MACHINE OPERATOR ICD (implantable cardioverter-defibri llator) in place [place] (ventricular tachycardia) (HCC) DEVICE CHECK - IN OFFICE Routine 10/28/2024 7:51 AM JIGGER MACHINE OPERATOR Encounter for fitting or adjustment of implantable cardioverter-defibri llator (ICD) SCREENING MAMMOGRAM BILATERAL W ISAC Schedule Routine, Read Routine (OP Routine) 07/16/2024 9:37 AM JIGGER MACHINE OPERATOR Screening mammogram, encounter for HEPATITIS [...] was last revised 2020. Testing performed by: [facility], [address] [facility], [place]., [address] Blood 12/21/2024 10:0 4 AM CDT 12/21/2024 3:27 PM CDT Amarilis Mcfarlane MD LAB BLOOD ORDERABLE S Final Result [facility] [place] [address] * Thyroid Function [place] (12/20/2024 7:05 AM CDT) TSH 1.22 0.40 - 4.50 mIU/L [facility] Blood 12/20/2024 7:05 AM CDT 12/20/2024 7:05 AM CDT Amarilis Mcfarlane MD LAB BLOOD ORDERABLE S Final Result [facility] [address] [place] [address] * CT Coronary Calcium Scoring (12/14/2024 7:40 [...] require more aggressive medical targets/therapy and evaluation. Devon Álvarez, Vega R, Amador Isaacs. Coronary Artery Calcium Score as a Graded Decision Tool. JACC Adv. 2022, 2 (9) . Tianna Hubbard A.L. Elli, et al. 2018 AHA/ACC/AACVPR/AAPA/ABC/ACPM/ADA/AGS/APhA/ASPC/NLA/PCNA guideline on the management of blood cholesterol: a report of the [place] College of Cardiology/[place] Heart Association Task Force on Clinical Practice Guidelines. J Am Rakel Cardiol, 73 (24) (2019), pp. o316-t900 THIS IS AN ELECTRONICALLY VERIFIED FINAL REPORT 12/19/2024 3:26 PM - Electronically signed by Felix Babcock M.D. MJ: [email or web address] Report ID: [id number] Reading Location: [place] [address] Procedure Note Felix Babcock MD - 12/19/2024 [...] may require moreaggressive medical targets/therapy and evaluation. Preeti, S, Vega R, Amador Isaacs. Coronary Artery Calcium Score as aGraded Decision Tool. JACC Adv. 2022, 2 (9) . Tianna Hubbard, Jadyn. Elli, et al. 2018 AHA/ACC/AACVPR/AAPA/ABC/ACPM/ADA/AGS/APhA/ASPC/NLA/PCNA guideline on the management of blood cholesterol: a report of the [place] [employer] of Cardiology/[place] Heart Association Task Force on Clinical Practice Guidelines. J Am Rakel Cardiol, 73 (24) (2019), pp. i653-s573 THIS IS AN ELECTRONICALLY VERIFIED FINAL REPORT 12/19/2024 3:26 PM - Electronically signed by Felix Babcock M.D. MJ: [email or web address] Report ID: [id number] Reading Location: [id number] Christine PIZARRO IMG CT PROCEDURES Final Result [...] is programmed Adaptive, currently 3.5/0.4. Presenting Rhythm ([place]) Atrial Pacing-Ventricular Sensing (AP-VS) --- AP/VS 60 [...] output is programmedAdaptive, currently 3.5/0.4. Presenting Rhythm ([place]) Atrial Pacing-Ventricular Sensing (AP-VS) --- AP/VS 60 bpm. Arrhythmic events (AE) No new arrhythmic events in monitoring period --- Since 11/04/24: No AHRor VHR episodes. Transmission Information (TI) Device Summary Report Nathan Irvin MD CV CARDIAC SERVICES PROCEDURES [...] was last reviewed 2021. Testing performed by: [facility], [address] [place] [address]., [address] Blood 11/25/2024 1:06 PM CDT 11/25/2024 2:12 PM CDT us Christine PIZARRO LAB BLOOD ORDERABLES Final Resul t [facility] [place] [address] * Thyroid Function [place] (11/25/2024 1:06 PM CDT) TSH 1.58 0.30 - 4.20 mcIUnit/mL Comment:Testing performed by : [address] [address] Blood 11/25/2024 1:06 PM CDT 11/25/2024 2:12 PM CDT Christine PIZARRO LAB BLOOD ORDERABLES Final Resul t Performing Organization Address City/[facility] Co de Phone Number [place] [phone] [facility] [place] [address] * Erythrocyte sedimentation rate (11/25/2024 1:06 PM CDT) [facility] Erythrocyte sedimentation rate 5 1 - 30 mm/hr Comment:Testing performed by : [address] [address] Blood 11/25/2024 1:06 PM CDT 11/25/2024 2:12 PM CDT Christine PIZARRO LAB BLOOD ORDERABLES Final Resul t Performing Organization Address [facility] Co de Phone Number [place] [phone] [facility] [place] [address] * Comprehensive metabolic panel (11/25/2024 1:06 PM CDT) [facility] Sodium 142 135 - 145 mmol/L Comment:Testing performed by : [address] [address] Potassium, pl 4.0 3.3 - 4.9 mmol/L [facility] Comment:Testing performed by : [address] [address] Chloride 105 97 - 110 mmol/L [facility] Comment:Testing performed by : [address] [address] CO2 25 22 - 32 mmol/L [facility] Comment:Testing performed by : [address] [address] Anion gap 12 2 - 15 mmol/L [facility] Comment:Testing performed by : [address] [address] BUN 13 6 - 25 mg/dL [facility] Comment:Testing performed by : [address] [address] Creatinine 0.90 0.60 - 1.10 mg/dL [facility] Comment:Testing performed by : [address] [address] Glucose 131 70 - 199 mg/dL SH[facility]ON [...] classification and Diagnosis of Diabetes Diabetes Care 2021; 46: S19-S40. Current interpretive data was last revised 2022. Testing performed by: [address] [address] Calcium 8.8 8.5 - 10.3 mg/dL [facility] Comment:Testing performed by : [address] [address] Bilirubin, total 0.7 0.1 - 1.2 mg/dL [facility] Comment:Testing performed by : [address] [address] Protein, pl 6.9 6.5 - 8.5 g/dL [facility] Comment:Testing performed by : [address] [address] Albumin 4.3 3.5 - 5.0 g/dL [facility] Comment:Testing performed by : [address] [address] Alk phos 76 40 - 130 Units/L [facility] Comment:Testing performed by : [address] [address] ALT 11 7 - 45 Units/L [facility] Comment:Testing performed by : [address] [address] AST 15 10 - 45 Units/L [facility] Comment:Testing performed by : [address] [address] Blood 11/25/2024 1:06 PM CDT 11/25/2024 2:12 PM CDT Christine PIZARRO LAB BLOOD ORDERABLES Final Resul t Performing Organization Address [facility] Co de Phone Number SH[facility] [address] [facility] Department [place] [address] * Thyroid Function [place] (11/12/2024 9:39 AM JIGGER MACHINE OPERATOR) Pathologist [facility] TSH 3.87 0.40 - 4.50 mIU/L [facility] Blood 11/12/2024 9:39 AM JIGGER MACHINE OPERATOR 11/12/2024 9:39 AM JIGGER MACHINE OPERATOR Narrative [facility] - 11/13/2024 10:52 AM JIGGER MACHINE OPERATOR FASTING:YES FASTING: YES us Amarilis Mcfarlane MD LAB BLOOD ORDERABLE S Final Result Performing Organization Address [facility] de Phone Number [facility] [address] [place] [address] * Calcium, ionized (11/12/2024 9:39 AM JIGGER MACHINE OPERATOR) [facility] Calcium, Ionized 4.7 4.7 - 5.5 mg/dL [facility] Blood 11/12/2024 9:39 AM JIGGER MACHINE OPERATOR 11/12/2024 9:39 AM JIGGER MACHINE OPERATOR Narrative [facility] - 11/13/2024 10:52 AM JIGGER MACHINE OPERATOR FASTING:YES FASTING: YES us Amarilis Mcfarlane MD LAB BLOOD ORDERABLE S Final Result Performing Organization Address [facility] de Phone Number [facility] [address] [place] [address] * Vitamin D 25 hydroxy (11/12/2024 9:39 AM JIGGER MACHINE OPERATOR) Pathologist [facility] Vitamin D 25-OH 51 30 - 100 ng/mL [facility] Comment: Vitamin D Status 25-OH Vitamin D: Deficiency: <20 ng/mL Insufficiency: 20 - 29 ng/mL Optimal: > or = 30 ng/mL For 25-OH Vitamin D testing on patients on D2-supplementation and patients for whom quantitation of D2 and D3 fractions is required, the QuestAssureD(TM) 25-OH VIT D, (D2,D3), LC/MS/MS is recommended: order code 94292 (patients >2yrs). See Note 1 Note 1 For additional information, please refer to http://education.DocRun/faq/OQO959 (This link is being provided for informational/ educational purposes only.) Blood 11/12/2024 9:39 AM JIGGER MACHINE OPERATOR 11/12/2024 9:39 AM JIGGER MACHINE OPERATOR Narrative [facility] - 11/13/2024 10:52 AM JIGGER MACHINE OPERATOR FASTING:YES FASTING: YES us Amarilis Mcfarlane MD LAB BLOOD ORDERABLE S Final Result Performing Organization Address [facility] de Phone Number [facility] [address] [place] [address] * Erythrocyte sedimentation rate (11/12/2024 9:39 AM JIGGER MACHINE OPERATOR) Erythrocyte sedimentation rate 2 < OR = 30 mm/h [facility] Blood 11/12/2024 9:39 AM JIGGER MACHINE OPERATOR 11/12/2024 9:39 AM JIGGER MACHINE OPERATOR Narrative [facility] - 11/13/2024 10:52 AM JIGGER MACHINE OPERATOR FASTING:YES FASTING: YES Amarilis Mcfarlane MD LAB BLOOD ORDERABLE S Final Result Performing Organization Address [facility] de Phone Number [facility] [address] [place] [address] * CRP (acute phase) (11/12/2024 9:39 AM JIGGER MACHINE OPERATOR) C-RP <3.0 <8.0 mg/L [facility] Blood 11/12/2024 9:39 AM JIGGER MACHINE OPERATOR 11/12/2024 9:39 AM JIGGER MACHINE OPERATOR Narrative [facility] - 11/13/2024 10:52 AM JIGGER MACHINE OPERATOR FASTING:YES FASTING: YES us Amarilis Mcfarlane MD LAB BLOOD ORDERABLE S Final Result Performing Organization Address [facility]/ZIP Co de Phone Number [facility] [address] [place] [address] * Phosphorus (11/12/2024 9:39 AM JIGGER MACHINE OPERATOR) Phosphorus, sr 4.0 2.1 - 4.3 mg/dL [facility] Blood 11/12/2024 9:39 AM JIGGER MACHINE OPERATOR 11/12/2024 9:39 AM JIGGER MACHINE OPERATOR Narrative [facility] - 11/13/2024 10:52 AM JIGGER MACHINE OPERATOR FASTING:YES FASTING: YES Amarilis Mcfarlane MD LAB BLOOD ORDERABLE S Final Result Performing Organization Address [facility] de Phone Number [facility] [address] [place] [address] * PTH (11/12/2024 9:39 AM JIGGER MACHINE OPERATOR) Parathyroid hormone, intact 24 16 - 77 pg/mL [facility] Comment: Interpretive Guide Intact PTH Calcium ------- Normal Parathyroid Normal Normal Hypoparathyroidism Low or Low Normal Low Hyperparathyroidism Primary Normal or High High Secondary High Normal or Low Tertiary High High Non-Parathyroid Hypercalcemia Low or Low Normal High Blood 11/12/2024 9:39 AM JIGGER MACHINE OPERATOR 11/12/2024 9:39 AM JIGGER MACHINE OPERATOR Narrative [facility] - 11/13/2024 10:52 AM JIGGER MACHINE OPERATOR FASTING:YES FASTING: YES us Amarilis Mcfarlane MD LAB BLOOD ORDERABLE S Final Result Performing Organization Address [facility] de Phone Number [facility] [address] [place] [address] * Magnesium (11/12/2024 9:39 AM JIGGER MACHINE OPERATOR) Magnesium 2.2 1.5 - 2.5 mg/dL [facility] Blood 11/12/2024 9:39 AM JIGGER MACHINE OPERATOR 11/12/2024 9:39 AM JIGGER MACHINE OPERATOR Narrative [facility] - 11/13/2024 10:52 AM JIGGER MACHINE OPERATOR FASTING:YES FASTING: YES us Amarilis Mcfarlane MD LAB BLOOD ORDERABLE S Final Result Performing Organization Address [facility] Co de Phone Number QUE[facility] [address] [place] [address] * (ABNORMAL) Vitamin B12 (11/12/2024 9:39 AM JIGGER MACHINE OPERATOR) Vitamin B12 1,112(H) 200 - 1,100 pg/mL [facility] Blood 11/12/2024 9:39 AM JIGGER MACHINE OPERATOR 11/12/2024 9:39 AM JIGGER MACHINE OPERATOR Narrative [facility] - 11/13/2024 10:52 AM JIGGER MACHINE OPERATOR FASTING:YES FASTING: YES us Amarilis Mcfarlane MD LAB BLOOD ORDERABLE S Final Result Performing Organization Address [facility] Co de Phone Number [facility] [address] [place] [address] * Creatine kinase (CK), total (11/12/2024 9:39 AM JIGGER MACHINE OPERATOR) Pathologist [facility] CK 51 20 - 243 U/L [facility] Blood 11/12/2024 9:39 AM JIGGER MACHINE OPERATOR 11/12/2024 9:39 AM JIGGER MACHINE OPERATOR Narrative [facility] - 11/13/2024 10:52 AM JIGGER MACHINE OPERATOR FASTING:YES FASTING: YES us Amarilis Mcfarlane MD LAB BLOOD ORDERABLE S Final Result Performing Organization Address [facility] de Phone Number [facility] [address] [facility] [place] [address] * (ABNORMAL) Lipid panel (11/12/2024 9:39 AM JIGGER MACHINE OPERATOR) Cholesterol 175 <200 mg/dL [facility] [...] factors. LDL-C is now calculated using the Conor calculation, which is a validated novel method providing better accuracy than the Friedewald equation in the estimation of LDL-C. Eric SS et al. LEXX. 2013;310(98): 3019-4002 (http://education.DocRun/faq/XTJ865) Chol/HDL ratio 3.2 <5.0 (calc) [facility] Non-HDL, (LDL+VLDL) 120 <130 mg/dL (calc) [facility] Comment: For patients with diabetes plus 1 major ASCVD risk factor, treating to a non-HDL-C goal of <100 mg/dL (LDL-C of <70 mg/dL) is considered a therapeutic option. Blood 11/12/2024 9:39 AM JIGGER MACHINE OPERATOR 11/12/2024 9:39 AM JIGGER MACHINE OPERATOR Narrative [facility] - 11/13/2024 10:52 AM JIGGER MACHINE OPERATOR FASTING:YES FASTING: YES us Amarilis Mcfarlane MD LAB BLOOD ORDERABLE S Final Result [facility] [address] [place] [address] * (ABNORMAL) TSH (10/29/2024 12:31 PM JIGGER MACHINE OPERATOR) TSH 7.74(H) 0.40 - 4.50 mIU/L [facility] Blood 10/29/2024 12:3 1 PM JIGGER MACHINE OPERATOR 10/29/2024 12:31 PM JIGGER MACHINE OPERATOR us Angela PIZARRO LAB BLOOD ORDERABLES Milagros l Result [facility] [address] [place] [address] * T4, free (10/29/2024 12:31 PM JIGGER MACHINE OPERATOR) Free T4 1.3 0.8 - 1.8 ng/dL [facility] Blood 10/29/2024 12:3 1 PM JIGGER MACHINE OPERATOR 10/29/2024 12:31 PM JIGGER MACHINE OPERATOR Angela Garrison PA LAB BLOOD ORDERABLES Milagros l Result [facility] [address] [place] [address] * ECG 12 lead (10/28/2024 9:29 AM JIGGER MACHINE OPERATOR) Bairon Muhammad MD ECG ORDERABLES Final R esult * DEVICE CHECK - IN OFFICE (10/28/2024 7:51 AM JIGGER MACHINE OPERATOR) Anatomical Region Laterality Modality Other 10/28/2024 2:00 AM JIGGER MACHINE OPERATOR Narrative 11/01/2024 7:23 PM JIGGER MACHINE OPERATOR Interpretation Summary: Battery and Leads (BL) Less than 1 year of battery longevity noted --- battery longevity estimate: 5 months Normal parameters identified on lead(s) Presenting Rhythm ([place]) Atrial Sensing-Ventricular Sensing (-VS) --- Underlying rhythm: NSR Procedure Note Bairon Muhammad MD - 11/01/2024 Interpretation Summary: Battery and Leads (BL) Less than 1 year of battery longevity noted --- battery longevityestimate: 5 months Normal parameters identified on lead(s) Presenting Rhythm ([place]) Atrial Sensing-Ventricular Sensing (-VS) --- Underlying rhythm: NSR Brandy Jj MD CV CARDIAC SERVICES PROCEDURES Final Result * Screening Mammogram Bilateral W Isac (07/16/2024 9:37 AM JIGGER MACHINE OPERATOR) Anatomical Region Laterality Modality Breast Bilateral Mammography Impressions 07/16/2024 5:12 PM JIGGER MACHINE OPERATOR BI-RADS ATLAS category (overall): 1 - Negative There is no mammographic evidence of malignancy. A 1 year screening mammogram is recommended. The patient has been or will be contacted. We recommend annual screening mammography for women at average risk of breast cancer beginning at age 40, based on guidelines of the [place] [employer] (ACR Practice Parameter for the Performance of Screening and Diagnostic Mammography) and [place] [employer]. For women with and elevated risk of breast cancer, please refer to the ACR Practice Parameter for specific screening recommendations. The patient will be entered into a reminder system with a target due date of 1 year for her next screening exam. Narrative 07/16/2024 5:12 PM JIGGER MACHINE OPERATOR Screening Mammogram Bilateral W Isac: [...] a test for HCV RNA (test code 68011) is suggested. For additional information please refer to http://education.Segetis/faq/BWZ06a3 (This link is being provided for informational/ educational purposes only.) Blood 06/04/2022 9:22 AM CDT 06/04/2022 9:25 AM CDT Narrative [facility] - 06/05/2022 10:11 AM CDT FASTING:YES FASTING: YES us Amarilis Mcfarlane MD LAB MICROBIOLOGY - GENERAL ORDERABLES Final Result [facility] [address] [place] [address] * Dexa Axial Skeleton Bone Density 1 or 2 Site (01/31/2022 9:03 AM CDT) Anatomical Region Laterality Modality Body N/A Mammography 01/31/2022 3:21 PM CDT Narrative 01/31/2022 3:21 PM CDT EXAM DESCRIPTION: DEXA AXIAL SKELETON BONE DENSITY 1 OR MORE SITES REASON FOR STUDY: 66 y/o year old F with given history of screening. Varnish Inspector/Model: Synack A (S/N [id number]) CLINICAL INFORMATION: Current height: 65 inches Maximum [...] Amrita Dennison M.D. TB: TB Report ID: [id number] [facility] Procedure Note [place], Amrita Hall MD - 01/31/2022 EXAM DESCRIPTION: DEXA AXIAL SKELETON BONE DENSITY 1 OR MORE SITES REASON FOR STUDY: 66 y/o year old F with given history ofscreening. Varnish Inspector/Model: Synack A (S/N [id number]) CLINICAL INFORMATION: Current height: 65 inches Maximum [...] Amrita Dennison M.D. TB: TB Report ID: [id number] Reading Location: [facility] [place] Amarilis Mcfarlane MD IMG DXA PROCEDURES Final Result * Colonoscopy (06/27/2021) Anatomical Region Laterality Modality Other Historical Provider ENDOSCOPY PROCEDURES Milagros l Result from Last 3 Months or Most Recently Relevant to Health Maintenance Insurance [employer]ICARE [employer] [place] [employer] [place] [address] [facility] [place] Care Teams Fruit Washer Relationship Specialty Start Date End Date Amarilis Mcfarlane MD [address] [place] [address] PCP - General Family Medicine 06/29/20 Bayron Barclay DO [address] [place] [address] MEDICAL ONCOLOGY, [facility] [address] [place] [address] Medical Oncologist/Public Relations Intern Hematology and Oncology 04/28/23
== END 2024-12-27 09:08 | disposition home or self-care (01) ==
PROVIDERS: Emergency Provider Nurse Practitioner; PCP Family Medicine
DX: N30.01 Acute cystitis with hematuria (principal); K21.9 Gastro-esophageal reflux disease without esophagitis; Z95.810 Presence of automatic (implantable) cardiac defibrillator; Z85.850 Personal history of malignant neoplasm of thyroid
CPT/HCPCS: 81003; 87086; 87186; 99213; G0463

== ENCOUNTER 2024-12-27 13:02 | Outpatient (CLI) | payer MEDICARE, OTHER, SELFPAY ==
--- NOTE | ~2024-12-27 | MMUS_ITS ---
EXAMINATION: MM diagnostic case BI w brinda, US breast LT limited HISTORY: 69-year-old woman with a significant family history of breast cancer presents for diagnostic evaluation of a palpable abnormality within the left breast, and yearly diagnostic evaluation of the right breast. TECHNIQUE: Craniocaudal and mediolateral oblique 3-D tomosynthesis images were obtained and synthetic 2-D images were generated. CAD analysis was submitted and interpreted. High resolution limited left breast ultrasound was performed. COMPARISON: 07/16/2024 and dating back to 04/30/2021. Reference is also made to a focused ultrasound examination of the left breast dated 05/03/2021. BREAST PARENCHYMAL COMPOSITION: Not Dense. There are scattered areas of fibroglandular density. FINDINGS: MAMMOGRAPHIC FINDINGS: Within the lower inner left breast (the area of palpable concern) no suspicious mammographic or tomog raphic finding is detected. However, within the retroareolar position of the left breast is a 5 mm well-circumscribed asymmetry, which has increased in size when compared with previous examinations performed most recently on 2023 and dating back to 07/12/2022, for which focused ultrasound examination will be performed. Otherwise stable parenchymal pattern without suspicious microcalcifications, architectural distortion , discrete masses or significant asymmetry. ULTRASOUND: Within the lower inner left breast (the area of palpable concern) no suspicious sonographic finding i s present. However, within the retroareolar position of the left breast is a well-circumscribed anechoic avascul ar focus with increased through transmission measuring 4.9 x 3.6 x 5.7 mm, corresponding to the abnor mality seen mammographically. This focus represents a simple cyst, for which no further follow-up is needed. Multiple 2 and 3 mm simple cysts are also noted within the lower inner left breast, for which no furt her follow-up is needed. Sonographic evaluation of the remainder of the lower inner left breast demonstrates benign fibrogland ular elements without a cystic or solid lesion of concern. IMPRESSION: No mammographic/tomographic or sonographic evidence to suggest the presence of malignancy, specifical ly within the area of palpable concern (the lower inner left breast). If clinical suspicion persists, consultation with a breast surgeon is suggested for further evaluatio n. Resumption of yearly mammography is recommended. BI-RADS Category 2: Benign finding(s). Reviewed, dictated and finalized at location A. IMPRESSION: No mammographic/tomographic or sonographic evidence to suggest the presence of malignancy, specifically within the area of palpable concern (the lower inner l eft breast). If clinical suspicion persists, consultation with a breast surgeon is suggested for further evaluation. Resumption of yearly mammography is recommended. BI-RADS Category 2: Benign finding(s).
--- OUTSIDE RECORDS SUMMARY | 2024-12-27 14:39 | XMS_ITS | Clinical Summary ---
Author Organization [facility] Care Team Providers Care [employer] Name Role Phone Unavailable Primary Care Provider Unavailabl e Social History Tobacco Use Types Packs/Day Years Used Date Smoking Tobacco: Never Assessed Comments Unknown Sex and Gender Information Value Date Recorded Sex Assigned at Not on file Legal Sex Female 8:12 AM PADDER CUSHION Gender Identity Not on file Sexual Orientation [...]
--- OUTSIDE RECORDS SUMMARY | 2024-12-27 14:40 | XMS_ITS | Encounter Summary ---
Author Organization [facility] Care Team Providers Care Eyeglass Assembler Name Role Phone Brielle Mack MD Primary Care Provider [phone] Amarilis Mcfarlane MD Primary Care Provi julito Bayron Barclay DO Unavailable [phone] Encounter Details Date Type Department Care Team (Latest Contact Info) Description 08/29/2016 Orders Only [facility] CLINCONV ProviderIvonne MD [address] [place] [address] Social History Tobacco Use Types Packs/Day Years Used Date Smoking Tobacco: Never Assessed Comments Unknown Sex and Gender Information Value Date Recorded Sex Assigned at Not on file Legal Sex Female 7:51 AM BRIDGE INSPECTOR Gender Identity Female 06/06/2023 10:34 AM CDT Sexual Orientation Straight 06/06/2023 10 :34 AM CDT documented as of this encounter Plan of Treatment Not on file documented as of this encounter Procedures Procedure Name Priority Date/Time Associated Diagnosis Comments CARDIOLOGY REPORT 09/04/2016 12: 00 AM BRIDGE INSPECTOR CARDIOLOGY REPORT 08/29/2016 12: 00 AM BRIDGE INSPECTOR documented in this encounter Results * CARDIOLOGY REPORT (09/04/2016 12:00 AM BRIDGE INSPECTOR) Anatomical Region Laterality Modality Other Narrative 09/04/2016 12:00 AM BRIDGE INSPECTOR Ordered by an unspecified provider. Historical Provider MD [facility] CARDIAC SERVICES PROCE DURES Final Result * CARDIOLOGY REPORT (08/29/2016 12:00 AM BRIDGE INSPECTOR) Anatomical Region Laterality Modality Other Narrative 08/29/2016 12:00 AM BRIDGE INSPECTOR Ordered by an unspecified provider. Historical Provider [facility] CARDIAC SERVICES PROCE DURPETR Final Result documented in this encounter Visit Diagnoses Not on filedocumented in this encounter Additional Health Concerns Infection Onset Date Last Indicated Resolved Time COVID: Suspected 09/13/2021 09/13/2021 09/14/2021 12:34 AM BRIDGE INSPECTOR COVID: Suspected 05/25/2024 05/25/2024 05/25/2024 9:56 AM CDT documented as of this encounter Care Teams Eyeglass Assembler Relationship Specialty Start Date End Date Brielle Mack MD PCP - General 10/23/17 06/28/20 Amarilis Mcfarlane MD [address] [place] [id number] PCP - General Family Medicine 06/29/20 Bayron Barclay DO [address] [place] [address] MEDICAL ONCOLOGY, [facility] [address] [place] [address] Medical Oncologist/Gas Distribution Supervisor Hematology and Oncology 04/28/23 documented as of this encounter
--- OUTSIDE RECORDS SUMMARY | 2024-12-27 14:40 | XMS_ITS | Clinical Summary ---
Author Organization [facility] Address [address] [place] [address] Care Team Providers Care Home School Teacher Name Role Phone Amarilis Mcfarlane MD Primary Care Provi julito NingBayron collado DO Unavailable [phone] Allergies Active Allergy Reactions Criticality Noted Date [...] 1 tablet (100 mcg total) by mouth earth burner before breakfast 90 tablet 3 025 Active [...] 1 tablet (125 mcg total) by mouth earth burner before breakfast Thyroid Function [place]; Future Erythrocyte sedimentation rate; Future Comprehensive metabolic panel; Future BMI 28.0-28.9,adult 10/04/2024 Assessment & Plan (10/04/2024 2:48 PM QA AUTOMATION ENGINEER): BMI Follow-up includes: education provided. Pericardial effusion [...] (12/08/2024 3:09 PM CDT): Orders: Thyroid Function [place]; Future Assessment & Plan (11/25/2024 11:51 AM CDT): Orders: Synthroid 125 mcg tablet; Take 1 tablet (125 mcg total) by mouth earth burner before breakfast Thyroid Function [place]; Future Erythrocyte sedimentation rate; Future Comprehensive metabolic panel; Future Assessment & Plan (10/04/2024 2:50 PM QA AUTOMATION ENGINEER): Chronic. Elevated mildly at last 2 lab checks. - Increase levothyroxine from 100-112 mcg daily - Repeat labs in 6 weeks Tingling in extremities 01/01/2024 Bilateral carpal tunnel syndrome 01/01/2024 Sphincter of Oddi dysfunction 07/22/2023 Overview (07/22/2024): Followed by GI Primary hypertension 05/26/2023 Assessment & Plan (12/08/2024 3:09 PM CDT): Assessment & Plan (10/04/2024 2:52 PM QA AUTOMATION ENGINEER): Chronic. Mostly controlled. Patient's average readings from home log are 115- 135 systolic though she does have some highs [...] week. Assessment & Plan (07/22/2023 3:39 PM QA AUTOMATION ENGINEER): Chronic, stabe Continue current regimen Assessment & Plan (06/10/2023 11:28 AM CDT): Chronic, improved Continue losartan Continue clonidine only if needed Continue to follow with Cardiology Update me with any changes Call for questions Low bone mass 05/30/2022 Assessment & Plan (10/04/2024 2:49 PM QA AUTOMATION ENGINEER): Chronic. Discussed recommendation for 500 mg of calcium daily or 3 servings of calcium in diet daily. Discussed recommendation for vitamin-D 3248-5828 international units daily. She may try to get this all from a multivitamin. Assessment & Plan (07/22/2023 3:39 PM QA AUTOMATION ENGINEER): Chronic, stable Continue vitamin d Follow up testing ordered Assessment & Plan (05/30/2022 10:13 AM CDT): Continue vitamin d, calcium Strength training, walking H/O cardiac arrest 11/13/2021 Assessment & Plan (07/22/2023 3:37 PM QA AUTOMATION ENGINEER): Chronic, stable Managed by cardiology Update me with any changes or concerns Assessment & Plan (05/30/2022 10:11 AM CDT): Following with cardiology Other headache syndrome 10/31/2021 Assessment & Plan (07/22/2023 3:39 PM QA AUTOMATION ENGINEER): Acute, resolved Continue to monitor Update me if anything changes or worsens Assessment & Plan (05/30/2022 10:14 AM CDT): Occasional headaches Keep track of headaches Avoid triggers Update me if her symptoms change or worsen Assessment & Plan (10/31/2021 1:02 PM QA AUTOMATION ENGINEER): Differential migraine versus cluster versus other With [...] 05/11/2021 Assessment & Plan (07/22/2023 3:40 PM QA AUTOMATION ENGINEER): Chronic, stable Managed by cardiology S/p ICD placement Assessment & Plan (05/30/2022 10:13 AM CDT): S/p pacemaker Continue to follow with cardiology PVC's (premature ventricular contractions) 05/11 Assessment & Plan (07/22/2023 3:40 PM QA AUTOMATION ENGINEER): Chronic, stable Managed by cardiology Update me with any changes or concerns Assessment & Plan (05/30/2022 10:13 AM CDT): S/p pacemaker Continue to follow with cardiology Nonsustained ventricular tachycardia 05/11/2021 Assessment & Plan (07/22/2023 3:39 PM QA AUTOMATION ENGINEER): Chronic, stable Managed by cardiology S/p ICD placement Assessment & Plan (05/30/2022 10:13 AM CDT): S/p pacemaker Continue to follow with cardiology Family history of heart disease 05/11/2021 Assessment & Plan (07/22/2023 3:29 PM QA AUTOMATION ENGINEER): Chronic, stable Managed by cardiology Continue current regimen Assessment & Plan (05/30/2022 10:10 AM CDT): Chronic, stable Continue to follow with cardiology Encounter for Medicare annual wellness exam 04/08 Overview (07/22/2024): Encouraged healthy diet and activity Please look into a power of attorney lawyer or living will Health Maintenance: Last mammogram:07/31, 08/01- WNL Last DEXA: 01/27- Low bone mass-ordered Last colonoscopy: 06/28-repeat in 10 years Last Tdap: encouraged Last pneumonia: up to date Last Shingrix: reviewed Last Flu: reviewed Last COVID: reviewed Assessment & Plan (07/22/2024 8:04 AM QA AUTOMATION ENGINEER): Encouraged healthy diet and activity Please look into a power of attorney lawyer or living will Health Maintenance: Last mammogram:07/31, 08/01- WNL Last DEXA: 01/27- Low bone mass-ordered Last colonoscopy: 06/28-repeat in 10 years Last Tdap: encouraged Last pneumonia: up to date Last Shingrix: reviewed Last Flu: reviewed Last COVID: reviewed Assessment & Plan (07/22/2023 3:28 PM QA AUTOMATION ENGINEER): Encouraged healthy diet and activity Please look into a power of attorney lawyer or living will Health Maintenance: Last mammogram:07/31- WNL Last DEXA: 01/27- Low bone mass Last colonoscopy: 06/28-repeat in 10 years Last Tdap: encouraged Last pneumonia: up to date Last Shingrix: reviewed Last Flu: reviewed Last COVID: reviewed Assessment & Plan (05/30/2022 10:09 AM CDT): Encouraged healthy diet and activity Please look into a power of attorney lawyer or living will Health Maintenance: Last mammogram:scheduled Last DEXA: 2020- Low bone mass Last colonoscopy: 06/28-repeat in 10 years Last Tdap: encouraged Last pneumonia: due second one Last Shingrix: reviewed Last Flu: reviewed Last COVID: reviewed Assessment & Plan (04/25/2021 2:08 PM CDT): Encouraged healthy diet and activity Please look into a power of attorney lawyer or living will Wear sun screen, seat [...] (heartburn) Assessment & Plan (07/22/2023 3:36 PM QA AUTOMATION ENGINEER): Chronic, stable Continue prilosec for now Consider [...] untreated Assessment & Plan (10/31/2021 1:01 PM QA AUTOMATION ENGINEER): With esophagitis and gastritis on her CT scan Continue Prilosec b.i.d. 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 Update me after the visit Assessment & Plan (04/25/2021 12:16 PM CDT): Continue omeprazole Reviewed the risk and benefits of medication Grief 08/01/2020 Assessment & Plan (07/22/2023 3:37 PM QA AUTOMATION ENGINEER): Chronic, stable Continue supportive care Assessment & Plan (05/30/2022 10:11 AM CDT): Improved, doing well with supportive care Assessment & Plan (04/25/2021 12:15 PM CDT): Patient with a significant amount of loss over the last year Continue supportive care Update me if her mood worsens or changes Assessment & Plan (08/01/2020 1:22 PM QA AUTOMATION ENGINEER): Some of her symptoms may be related [...] Future Assessment & Plan (07/22/2023 3:38 PM QA AUTOMATION ENGINEER): Chronic, stable Managed by cardiology Assessment & [...] CDT): Assessment & Plan (07/22/2023 3:38 PM QA AUTOMATION ENGINEER): Chronic, stable Managed by oncology Continue to monitor Assessment & Plan (05/30/2022 10:12 AM CDT): Chronic, stable Follows with oncology Continue synthroid Assessment & Plan (04/25/2021 2:10 PM CDT): Continue levothyroxine at current dose Continue to follow with Dr Barclay Resolved Problems Problem Noted Date Diagnosed Date Resolved Date Hypokalemia 06/02/2023 07/22/2024 Assessment & Plan (07/22/2023 3:38 PM QA AUTOMATION ENGINEER): Chronic,s table Continue replacement History of torsades de pointes 05/08/2021 07/22/2024 Assessment & Plan (07/22/2023 3:38 PM QA AUTOMATION ENGINEER): Chronic, stable Managed by cardiology S/p pacemaker Assessment & Plan (05/30/2022 10:12 AM CDT): S/p pacemaker Continue to follow with cardiology Allergic rhinitis 04/25/2021 07/22/2024 Assessment & Plan (07/22/2023 3:29 PM QA AUTOMATION ENGINEER): Chronic, stable Asymptomatic Continue to monitor Assessment & Plan (05/30/2022 10:09 AM CDT): Chronic, stable Assessment & Plan (04/25/2021 2:11 PM CDT): Continue flonase Thyroid cancer ([facility]/HCC) 04/17/2018 Cardiac arrest 05/27/2016 11/13/2021 Assessment & [...] Department Care Team Description 12/23/2024 Orders Only [address] [phone] Amarilis Mcfarlane MD Abnormal mammogram (Primary Dx) 12/23/[address] [address] Amarilis Mcfarlane MD 12/22/2024 Results Follow-Up [address] [phone] Amarilis Mcfarlane MD 12/21/2024 10:00 AM CDT Lab [facility] OP Lab [address] [place] [address] Postoperative hypothyroidism 12/21/2024 9:30 AM CDT Office Visit [address] [phone] Christine Katz PA Mass of lower inner quadrant of left breast (Primary Dx); History of thyroid cancer; Statin intolerance; Postoperative hypothyroidism; Primary insomnia; Mixed hyperlipidemia 12/21/2024 Results Follow-Up [address] [address] Amarilis Mcfarlane MD 12/20/2024 Results Follow-Up [address] [address] Christine Katz PA 12/16/2024 Orders Only [address] [phone] Amarilis Mcfarlane MD Postoperative hypothyroidism (Primary Dx) 12/14/2024 6:59 AM CDT - 12/14/2024 11:59 PM CDT Hospital Encounter [facility] Medical Office Building [address] [address] Mixed hyperlipidemia; ICD (implantable cardioverter-defibrill ator) in place; Torsades de pointes (HCC); Myalgia; Statin intolerance Discharge Disposition: Discharge to home or self care 12/13/2024 Results Follow-Up [facility] Cardiology [address] [facility] Medical Office Building [address] [place] [address] Bairon Muhammad MD 12/10/2024 Telephone [facility] Cardiology [address] [place] [address] 8th [place] [address] [place] [address] Lisy Diego 12/10/2024 Telephone [facility] Cardiology Formerly [facility], [address] [facility] 8th [place] [address] [place] [address] Bairon Muhammad MD 12/08/2024 2:30 PM CDT Office Visit [address] [phone] Amarilis Mcfarlane MD Mixed hyperlipidemia (Primary Dx); Myalgia; Postoperative hypothyroidism; Gastroesophageal reflux disease without esophagitis; Primary hypertension 11/29/2024 Orders Only [facility] Cardiology [address] [place] [address] 8th [place] [address] [place] [address] Nathan Irvin MD 11/25/2024 1:00 PM CDT Lab [facility] Lab [address] [place] [address] Myalgia; Postoperative hypothyroidism 11/25/2024 11:00 AM CDT Office Visit [address] [phone] Christine Katz PA Myalgia (Primary Dx); Postoperative hypothyroidism; Mixed hyperlipidemia; Statin intolerance; ICD (implantable cardioverter-defibrill ator) in place; Torsades de pointes (HCC) 11/25/2024 Results Follow-Up [address] [phone] Christine Katz PA Postoperative hypothyroidism (Primary Dx) 11/14/2024 Results Follow-Up [address] [phone] Amarilis Mcfarlane MD 11/03/2024 10:00 AM QA AUTOMATION ENGINEER Office Visit [address] [phone] Amarilis Mcfarlane MD Mixed hyperlipidemia (Primary Dx); Primary hypertension; Postoperative hypothyroidism; Palpitations; PVC's (premature ventricular contractions); Low serum vitamin B12; Hypocalcemia; Myalgia; Postmenopausal status 11/03/2024 Telephone [facility] Cardiology [address] [place] [phone] Agnes Milton MD Med Management; Muscle Pain; Spasms 11/01/[address] [phone] Amarilis Mcfarlane MD 11/01/2024 Results Follow-Up [address] [phone] Angela Garrison PA 10/28/2024 8:45 AM QA AUTOMATION ENGINEER Office Visit [facility] Cardiology [address] [place] [address] Office Building [address] [place] [address] Bairon Muhammad MD [place] (ventricular tachycardia) (HCC) (Primary Dx); ICD (implantable cardioverter-defibrill ator) in place 10/28/2024 8:15 AM QA AUTOMATION ENGINEER Ancillary Procedure [facility] Cardiology [address] [place] [address] Office Building [address] [place] [address] [place] (ventricular tachycardia) (HCC) (Primary Dx); Encounter for fitting or adjustment of implantable cardioverter-defibrill ator (ICD) 10/27/[address] [phone] Amarilis Mcfarlane MD 10/04/2024 1:30 PM QA AUTOMATION ENGINEER Office Visit [address] [phone] Angela Garrison PA Primary hypertension [...] CAD. Heart attack Mother age 90 of [place] Hypertension Mother Breast cancer Sister Relation Name [...] on file Legal Sex Female 7:51 AM QA AUTOMATION ENGINEER Gender Identity Female 06/06/2023 10:34 AM CDT [...] hypothyroidism LIPID PANEL Routine 11/12/2024 9:39 AM QA AUTOMATION ENGINEER Mixed hyperlipidemia ERYTHROCYTE SEDIMENTATION RATE Routine 11/12/2024 9:39 AM QA AUTOMATION ENGINEER Myalgia CRP (ACUTE PHASE) Routine 11/12/2024 9:3 9 AM QA AUTOMATION ENGINEER Myalgia CREATINE KINASE (CK), TOTAL Routine 11/12/2024 9:39 AM QA AUTOMATION ENGINEER Myalgia MAGNESIUM Routine 11/12/2024 9:39 AM QA AUTOMATION ENGINEER Hypocalcemia PHOSPHORUS Routine 11/12/2024 9:39 AM QA AUTOMATION ENGINEER Hypocalcemia PTH Routine 11/12/2024 9:39 AM QA AUTOMATION ENGINEER Hypocalcemia VITAMIN D 25 HYDROXY Routine 11/12/2024 9:39 AM QA AUTOMATION ENGINEER Hypocalcemia CALCIUM, IONIZED Routine 11/12/2024 9:39 AM QA AUTOMATION ENGINEER Hypocalcemia VITAMIN B12 Routine 11/12/2024 9:39 AM QA AUTOMATION ENGINEER Low serum vitamin B12 THYROID FUNCTION CASCADE Routine 11/12/2024 9:39 AM QA AUTOMATION ENGINEER Postoperative hypothyroidism TSH Routine 10/29/2024 12:31 PM QA AUTOMATION ENGINEER Postoperative hypothyroidism T4, FREE Routine 10/29/2024 12:31 PM QA AUTOMATION ENGINEER Postoperative hypothyroidism ECG 12-LEAD Routine 10/28/2024 9:29 AM QA AUTOMATION ENGINEER ICD (implantable cardioverter-defibri llator) in place [place] (ventricular tachycardia) (HCC) DEVICE CHECK - IN OFFICE Routine 10/28/2024 7:51 AM QA AUTOMATION ENGINEER Encounter for fitting or adjustment of implantable cardioverter-defibri llator (ICD) SCREENING MAMMOGRAM BILATERAL W ISAC Schedule Routine, Read Routine (OP Routine) 07/16/2024 9:37 AM QA AUTOMATION ENGINEER Screening mammogram, encounter for HEPATITIS C ANTIBODY [...] was last revised 2020. Testing performed by: [facility], [address] [facility], [place]., [address] Blood 12/21/2024 10:0 4 AM CDT 12/21/2024 3:27 PM CDT us Amarilis Mcfarlane MD LAB BLOOD ORDERABLE S Final Result [facility] [address] [facility] Department [place] [address] * Thyroid Function [place] (12/20/2024 7:05 AM CDT) TSH 1.22 0.40 - 4.50 mIU/L [facility] Blood 12/20/2024 7:05 AM CDT 12/20/2024 7:05 AM CDT us Amarilis Mcfarlane MD LAB BLOOD ORDERABLE S Final Result [facility] [address] [place] [address] * CT Coronary Calcium Scoring (12/14/2024 7:40 [...] of blood cholesterol: a report of the [employer] College [employer]iology/[employer] Heart Association Task Force on Clinical Practice Guidelines. J Am Rakel Cardiol, 73 (24) (2019), pp. u880-r477 THIS IS AN ELECTRONICALLY VERIFIED FINAL REPORT 12/19/2024 3:26 PM - Electronically signed by Felix Babcock M.D. MJ: MARICRUZ Report ID: [id number] Reading Location: [id number] Procedure Note Felix Babcock MD - 12/19/2024 [...] of blood cholesterol: a report of the [employer] Heart Association Task Force on Clinical Practice Guidelines. J Am Rakel Cardiol, 73 (24) (2019), pp. [phone] THIS IS AN ELECTRONICALLY VERIFIED FINAL REPORT 12/19/2024 3:26 PM - Electronically signed by Felix Babcock M.D. MJ: MARICRUZ Report ID: [id number] Reading Location: [id number] Christine PIZARRO IMG CT PROCEDURES Final Result [...] was last reviewed 2021. Testing performed by: [facility], [address] [place] [address], [place]., [address] Blood 11/25/2024 1:06 PM CDT 11/25/2024 2:12 PM CDT us Christine PIZARRO LAB BLOOD ORDERABLES Final Resul t [facility] [address] [facility] Department [place] [address] * Thyroid Function [place] (11/25/2024 1:06 PM CDT) [facility] TSH 1.58 0.30 - 4.20 mcIUnit/mL Comment:Testing performed by : [address] [address] Blood 11/25/2024 1:06 PM CDT 11/25/2024 2:12 PM CDT Christine PIZARRO LAB BLOOD ORDERABLES Final Resul t Performing Organization Address [facility]/ZIP Co de Phone Number [address] [place] [address] * Erythrocyte sedimentation rate (11/25/2024 1:06 PM CDT) [facility] Erythrocyte sedimentation rate 5 1 - 30 mm/hr Comment:Testing performed by : [address] [address] Blood 11/25/2024 1:06 PM CDT 11/25/2024 2:12 PM CDT Christine PIZARRO LAB BLOOD ORDERABLES Final Resul t Performing Organization Address [facility]/ZIP Co de Phone Number [address] [address] * Comprehensive metabolic panel (11/25/2024 1:06 PM CDT) [facility] Sodium 142 135 - 145 mmol/L Comment:Testing performed by : [address] [address] Potassium, pl 4.0 3.3 - 4.9 mmol/L SHARON Comment:Testing performed by : [address] [address] Chloride 105 97 - 110 mmol/L SHARON Comment:Testing performed by : [address] [address] CO2 25 22 - 32 mmol/L SHARON Comment:Testing performed by : [address] [address] Anion gap 12 2 - 15 mmol/L SH[facility]ON Comment:Testing performed by : [address] [address] BUN 13 6 - 25 mg/dL SH[facility]ON Comment:Testing performed by : [address], [place]., [address] Creatinine 0.90 0.60 - 1.10 mg/dL SH[facility]ON Comment:Testing performed by : [address] [address] Glucose 131 70 - 199 mg/dL SHARON [...] was last revised 2022. Testing performed by: [address] [address] Calcium 8.8 8.5 - 10.3 mg/dL SHARON Comment:Testing performed by : [address] [address] Bilirubin, total 0.7 0.1 - 1.2 mg/dL SHARON Comment:Testing performed by : [address] [address] Protein, pl 6.9 6.5 - 8.5 g/dL SHARON Comment:Testing performed by : [address] [address] Albumin 4.3 3.5 - 5.0 g/dL SHARON Comment:Testing performed by : [address] [address] Alk phos 76 40 - 130 Units/L SHARON Comment:Testing performed by : [address] [address] ALT 11 7 - 45 Units/L SH[facility]ON QUINN Comment:Testing performed by : [facility], [address] [place] [address]., [address] AST 15 10 - 45 Units/L SHARON Comment:Testing performed by : [facility], [address] [place] [address]., [address] Blood 11/25/2024 1:06 PM CDT 11/25/2024 2:12 PM CDT us Christine PIZARRO LAB BLOOD ORDERABLES Final Resul t SHARON QUINN [address] [facility] Department [place] [address] * Thyroid Function [place] (11/12/2024 9:39 AM QA AUTOMATION ENGINEER) Pathologist [facility] TSH 3.87 0.40 - 4.50 mIU/L [facility] Blood 11/12/2024 9:39 AM QA AUTOMATION ENGINEER 11/12/2024 9:39 AM QA AUTOMATION ENGINEER Narrative [facility] - 11/13/2024 10:52 AM QA AUTOMATION ENGINEER FASTING:YES FASTING: YES us Amarilis Mcfarlane MD LAB BLOOD ORDERABLE S Final Result Performing Organization Address City/[facility]/ZIP Co de Phone Number [facility] [address] [place] [address] * Calcium, ionized (11/12/2024 9:39 AM QA AUTOMATION ENGINEER) Calcium, Ionized 4.7 4.7 - 5.5 mg/dL [facility] Blood 11/12/2024 9:39 AM QA AUTOMATION ENGINEER 11/12/2024 9:39 AM QA AUTOMATION ENGINEER Narrative [facility] - 11/13/2024 10:52 AM QA AUTOMATION ENGINEER FASTING:YES FASTING: YES us Amarilis Mcfarlane MD LAB BLOOD ORDERABLE S Final Result [facility] [address] [place] [address] * Vitamin D 25 hydroxy (11/12/2024 9:39 AM QA AUTOMATION ENGINEER) Pathologist [facility] Vitamin D 25-OH 51 30 - 100 ng/mL [facility] Comment: Vitamin D Status 25-OH Vitamin D: Deficiency: <20 ng/mL Insufficiency: 20 - 29 ng/mL Optimal: > or = 30 ng/mL For 25-OH Vitamin D testing on patients on D2-supplementation and patients for whom quantitation of D2 and D3 fractions is required, the Quest[facility]ure[facility](TM) 25-OH VIT D, (D2,D3), LC/MS/MS is recommended: order code 82412 (patients >2yrs). See Note 1 Note 1 For additional information, please refer to http://education.Xenoport/faq/TOW968 (This link is being provided for informational/ educational purposes only.) Blood 11/12/2024 9:39 AM QA AUTOMATION ENGINEER 11/12/2024 9:39 AM QA AUTOMATION ENGINEER Narrative [facility] - 11/13/2024 10:52 AM QA AUTOMATION ENGINEER FASTING:YES FASTING: YES us Amarilis Mcfarlane MD LAB BLOOD ORDERABLE S Final Result Performing Organization Address [facility]/ZIP Co de Phone Number [facility] [address] [place] [address] * Erythrocyte sedimentation rate (11/12/2024 9:39 AM QA AUTOMATION ENGINEER) [facility] Erythrocyte sedimentation rate 2 < OR = 30 mm[facility] Blood 11/12/2024 9:39 AM QA AUTOMATION ENGINEER 11/12/2024 9:39 AM QA AUTOMATION ENGINEER Narrative [facility] - 11/13/2024 10:52 AM QA AUTOMATION ENGINEER FASTING:YES FASTING: YES us Amarilis Mcfarlane MD LAB BLOOD ORDERABLE S Final Result [facility] [address] [place] [address] * CRP (acute phase) (11/12/2024 9:39 AM QA AUTOMATION ENGINEER) [facility] C-RP <3.0 <8.0 mg/L [facility] Blood 11/12/2024 9:39 AM QA AUTOMATION ENGINEER 11/12/2024 9:39 AM QA AUTOMATION ENGINEER Narrative [facility] - 11/13/2024 10:52 AM QA AUTOMATION ENGINEER FASTING:YES FASTING: YES Amarilis Mcfarlane MD LAB BLOOD ORDERABLE S Final Result Performing Organization Address [facility] Co de Phone Number [facility] [address] [place] [address] * Phosphorus (11/12/2024 9:39 AM QA AUTOMATION ENGINEER) [facility] Phosphorus, sr 4.0 2.1 - 4.3 mg/dL [facility] Blood 11/12/2024 9:39 AM QA AUTOMATION ENGINEER 11/12/2024 9:39 AM QA AUTOMATION ENGINEER Narrative [facility] - 11/13/2024 10:52 AM QA AUTOMATION ENGINEER FASTING:YES FASTING: YES Amarilis Mcfarlane MD LAB BLOOD ORDERABLE S Final Result Performing Organization Address [facility] de Phone Number [facility] [address] [place] [address] * PTH (11/12/2024 9:39 AM QA AUTOMATION ENGINEER) [facility] Parathyroid hormone, intact 24 16 - 77 pg/mL [facility] Comment: Interpretive Guide Intact PTH Calcium ------- Normal Parathyroid Normal Normal Hypoparathyroidism Low or Low Normal Low Hyperparathyroidism Primary Normal or High High Secondary High Normal or Low Tertiary High High Non-Parathyroid Hypercalcemia Low or Low Normal High Blood 11/12/2024 9:39 AM QA AUTOMATION ENGINEER 11/12/2024 9:39 AM QA AUTOMATION ENGINEER Narrative [facility] - 11/13/2024 10:52 AM QA AUTOMATION ENGINEER FASTING:YES FASTING: YES us Amarilis Mcfarlane MD LAB BLOOD ORDERABLE S Final Result Performing Organization Address [facility] de Phone Number [facility] [address] [place] [address] * Magnesium (11/12/2024 9:39 AM QA AUTOMATION ENGINEER) Magnesium 2.2 1.5 - 2.5 mg/dL [facility] Blood 11/12/2024 9:39 AM QA AUTOMATION ENGINEER 11/12/2024 9:39 AM QA AUTOMATION ENGINEER Narrative [facility] - 11/13/2024 10:52 AM QA AUTOMATION ENGINEER FASTING:YES FASTING: YES us Amarilis Mcfarlane MD LAB BLOOD ORDERABLE S Final Result Performing Organization Address [facility] Phone Number [facility] [address] [place] [address] * (ABNORMAL) Vitamin B12 (11/12/2024 9:39 AM QA AUTOMATION ENGINEER) Vitamin B12 1,112(H) 200 - 1,100 pg/mL [facility] Blood 11/12/2024 9:39 AM QA AUTOMATION ENGINEER 11/12/2024 9:39 AM QA AUTOMATION ENGINEER Narrative [facility] - 11/13/2024 10:52 AM QA AUTOMATION ENGINEER FASTING:YES FASTING: YES us Amarilis Mcfarlane MD LAB BLOOD ORDERABLE S Final Result Performing Organization Address [facility] de Phone Number [facility] [address] [place] [address] * Creatine kinase (CK), total (11/12/2024 9:39 AM QA AUTOMATION ENGINEER) CK 51 20 - 243 U/L [facility] Blood 11/12/2024 9:39 AM QA AUTOMATION ENGINEER 11/12/2024 9:39 AM QA AUTOMATION ENGINEER Narrative [facility] - 11/13/2024 10:52 AM QA AUTOMATION ENGINEER FASTING:YES FASTING: YES us Amarilis Mcfarlane MD LAB BLOOD ORDERABLE S Final Result Performing Organization Address City/[facility]/ZIP Co de Phone Number [facility] [address] [place] [address] * (ABNORMAL) Lipid panel (11/12/2024 9:39 AM QA AUTOMATION ENGINEER) Pathologist [facility] Cholesterol 175 <200 mg/dL [facility] [...] LDL-C. Eric SS et al. LEXX. 2013;310(19): 7501-4194 (http://education.[employer].Nonoba/faq/PNB769) Chol/HDL ratio 3.2 <5.0 (calc) [facility] Non-HDL, (LDL+VLDL) 120 <130 mg/dL (calc) [facility] Comment: For patients with diabetes plus 1 major ASCVD risk factor, treating to a non-HDL-C goal of <100 mg/dL (LDL-C of <70 mg/dL) is considered a therapeutic option. Blood 11/12/2024 9:39 AM QA AUTOMATION ENGINEER 11/12/2024 9:39 AM QA AUTOMATION ENGINEER Narrative [facility] - 11/13/2024 10:52 AM QA AUTOMATION ENGINEER FASTING:YES FASTING: YES us Amarilis Mcfarlane MD LAB BLOOD ORDERABLE S Final Result [facility] [address] [place] [address] * (ABNORMAL) TSH (10/29/2024 12:31 PM QA AUTOMATION ENGINEER) TSH 7.74(H) 0.40 - 4.50 mIU/L [facility] Blood 10/29/2024 12:3 1 PM QA AUTOMATION ENGINEER 10/29/2024 12:31 PM QA AUTOMATION ENGINEER Angela PIZARRO LAB BLOOD ORDERABLES Milagros l Result Performing Organization Address [facility]/ZIP Co de Phone Number [facility] [address] [place] [address] * T4, free (10/29/2024 12:31 PM QA AUTOMATION ENGINEER) Free T4 1.3 0.8 - 1.8 ng/dL [facility] Blood 10/29/2024 12:3 1 PM QA AUTOMATION ENGINEER 10/29/2024 12:31 PM QA AUTOMATION ENGINEER Angela PIZARRO LAB BLOOD ORDERABLES Milagros l Result Performing Organization Address [facility] de Phone Number [facility] [address] [place] [address] * ECG 12 lead (10/28/2024 9:29 AM QA AUTOMATION ENGINEER) Bairon Muhammad MD ECG ORDERABLES Final R esult * DEVICE CHECK - IN OFFICE (10/28/2024 7:51 AM QA AUTOMATION ENGINEER) Anatomical Region Laterality Modality Other 10/28/2024 2:00 AM QA AUTOMATION ENGINEER Narrative 11/01/2024 7:23 PM QA AUTOMATION ENGINEER Interpretation Summary: Battery and Leads (BL) Less [...] Mammogram Bilateral W Isac (07/16/2024 9:37 AM QA AUTOMATION ENGINEER) Anatomical Region Laterality Modality Breast Bilateral Mammography Impressions 07/16/2024 5:12 PM QA AUTOMATION ENGINEER BI-RADS ATLAS category (overall): 1 - Negative There is no mammographic evidence of malignancy. A 1 year screening mammogram is recommended. The patient has been or will be contacted. We recommend annual screening mammography for women at average risk of breast cancer beginning at age 40, based on guidelines of the [employer] (ACR Practice Parameter for the Performance of Screening and Diagnostic Mammography) and [employer]stetric[employer]nec[employer]. For women with and elevated risk of breast cancer, please refer to the ACR Practice Parameter for specific screening recommendations. The patient will be entered into a reminder system with a target due date of 1 year for her next screening exam. Narrative 07/16/2024 5:12 PM QA AUTOMATION ENGINEER Screening Mammogram Bilateral W Isac: 07/16/24 The [...] a test for HCV RNA (test code 62132) is suggested. For additional information please refer to http://education.echoBase/faq/LDT75j1 (This link is being provided for informational/ educational purposes only.) Blood 06/04/2022 9:22 AM CDT 06/04/2022 9:25 AM CDT Narrative [facility] - 06/05/2022 10:11 AM CDT FASTING:YES FASTING: YES Amarilis Mcfarlane MD LAB MICROBIOLOGY - GENERAL ORDERABLES Final Result [facility] [address] [place] [address] * Dexa Axial Skeleton Bone Density 1 or 2 Site (01/31/2022 9:03 AM CDT) Anatomical Region Laterality Modality Body N/A Mammography 01/31/2022 3:21 PM CDT Narrative 01/31/2022 3:21 PM CDT EXAM DESCRIPTION: DEXA AXIAL SKELETON BONE DENSITY 1 OR MORE SITES REASON FOR STUDY: 66 y/o year old F with given history of screening. Brisket Puller/Model: Zurn A ([id number]/N [id number]) CLINICAL INFORMATION: Current height: 65 inches Maximum [...] Amrita Dennison M.D. TB: TB Report ID: [id number] Reading Location: [facility] Procedure Note MiddletonAmrita MD - 01/31/2022 EXAM DESCRIPTION: DEXA AXIAL SKELETON BONE DENSITY 1 OR MORE SITES REASON FOR STUDY: 66 y/o year old F with given history ofscreening. Brisket Puller/Model: [employer] Horizon A (S/N [id number]) CLINICAL INFORMATION: Current height: 65 inches Maximum [...] Amrita Dennison M.D. TB: TB Report ID: [id number] Reading [facility] Amarilis Mcfarlane MD IMG DXA PROCEDURES Final Result * Colonoscopy (06/27/2021) Anatomical Region Laterality Modality Other us Historical Provider ENDOSCOPY PROCEDURES Milagros l Result from Last 3 Months or Most Recently Relevant to Health Maintenance Insurance MEDICARE [facility] MEDICARE [facility] MEDICARE M[employer]UAL NIRMAL STAUFFER Care Teams Home School Teacher Relationship Specialty Start Date End Date Amarilis Mcfarlane MD [facility] [address] [place], [place] [phone] PCP - General Family Medicine 06/29/20 Bayron Barclay DO [address] [place] [address] MEDICAL ONCOLOGY, [facility] [address] [place] [address] Medical Oncologist/Can Marker Hematology and Oncology 04/28/23
--- OUTSIDE RECORDS SUMMARY | 2024-12-27 14:40 | XMS_ITS | Encounter Summary ---
Author Organization [facility] Healthcare Address [address] [place] [address] Care Team Providers Care Presiding Judge Name Role Phone Amarilis Mcfarlane MD Primary Care Provi julito Bayron Barclay DO Unavailable [phone] Encounter Details Date Type Department Care Team (Latest Contact Info) Description 11/25/2024 Results Follow-Up [facility] Family Medicine [address] [address] Christine Katz PA [address] [address] Postoperative hypothyroidism (Primary Dx) Social [...] on file Legal Sex Female 7:51 AM CART ATTENDANT Gender Identity Female 06/06/2023 10:34 AM [...] (100 mcg total) by mouth early childhood assistant before breakfast 90 tablet 3 11/25/2024 documented in this encounter Plan of Treatment Not on file documented as of this encounter Visit Diagnoses Diagnosis Postoperative hypothyroidism- Primary Postsurgical hypothyroidism documented in this encounter Discontinued Medications Medication Sig Discontinue Reason Start Date End Da te Synthroid 125 mcg tabletIndications:Myalgia ,Postoperative hypothyroidism Take 1 tablet (125 mcg total) by mouth early childhood assistant before breakfast Alternate therapy 11/25/2024 11/25/2024 documented as of this encounter Care Teams Presiding Judge Relationship Specialty Start Date End Date Amarilis Mcfarlane MD [address] [place] [address] PCP - General Family Medicine 06/29/20 Bayron Barclay DO [facility]8 [facility], [place] [address] [place] [address] Medical Oncologist/Cellar Packer Hematology and Oncology 04/28/23 documented as of this encounter
--- OUTSIDE RECORDS SUMMARY | 2024-12-27 14:40 | XMS_ITS | Encounter Summary ---
Author Organization [facility] Healthcare Address [address] [place] [address] Care Team Providers Care Technical Data Analyst Name Role Phone Amarilis Mcfarlane MD Primary Care Provi julito Bayron Barclay DO Unavailable [phone] Encounter Details Date Type Department Care Team (Late st Contact Info) Description 12/22/2024 Results Follow-Up [facility] Medical Group Family Medicine [address] [address] Amarilis Mcfarlane MD [address] [place] [address] Social History Tobacco Use Types Packs/Day [...] file Legal Sex Female 7:51 AM HEALTH PLAN ADVISOR Gender Identity Female 06/06/2023 10:34 AM CDT Sexual Orientation Straight 06/06/2023 10 :34 AM CDT documented as of this encounter Plan of Treatment Not on file documented as of this encounter Visit Diagnoses Not on filedocumented in this encounter Care Teams Technical Data Analyst Relationship Specialty Start Date End Date Amarilis Mcfarlane MD [facility] [address] [place] [address] PCP - General Family Medicine 06/29/20 Bayron Barclay DO [address] [place] [address] MEDICAL ONCOLOGY, [facility] [address] [place] [address] Medical Oncologist/Fieldwork Coordinator Hematology and Oncology 04/28/23 documented as of this encounter
--- OUTSIDE RECORDS SUMMARY | 2024-12-27 14:40 | XMS_ITS | Encounter Summary ---
Author Organization [facility] Facility Care Team Providers Care Chemical Research Engineer Name Role Phone Brielle Mack MD Primary Care Provider Amarilis Mcfarlane MD Primary Care Provi julito Bayron Barclay DO Unavailable [phone] Encounter Details Date Type Department Care Team (Latest Contact Info) Description 11/11/2016 Orders Only [facility] CLINCONV ProviderIvonne MD [address] [place] [address] Social History Tobacco Use Types Packs/Day Years Used Date Smoking Tobacco: Never Assessed Comments Unknown Sex and Gender Information Value Date Recorded Sex Assigned at Not on file Legal Sex Female 7:51 AM DISPATCH CLERK Gender Identity Female 06/06/2023 10:34 AM CDT Sexual Orientation Straight 06/06/2023 10 :34 AM CDT documented as of this encounter Plan of Treatment Not on file documented as of this encounter Procedures Procedure Name Priority Date/Time Associated Diagnosis Comments CARDIOLOGY REPORT 11/13/2016 12: 00 AM DISPATCH CLERK documented in this encounter Results * CARDIOLOGY REPORT (11/13/2016 12:00 AM DISPATCH CLERK) Anatomical Region Laterality Modality Other Narrative 11/13/2016 12:00 AM DISPATCH CLERK Ordered by an unspecified provider. Historical Provider [facility] YAMILET ZHANG Final Result documented in this encounter Visit Diagnoses Not on filedocumented in this encounter Additional Health Concerns Infection Onset Date Last Indicated Resolved Time COVID: Suspected 09/13/2021 09/13/2021 09/14/2021 12:34 AM DISPATCH CLERK COVID: Suspected 05/25/2024 05/25/2024 05/25/2024 9:56 AM CDT documented as of this encounter Care Teams Chemical Research Engineer Relationship Specialty Start Date End Date Brielle Mack MD PCP - General 10/23/17 06/28/20 Amarilis Mcfarlane MD [facility] N [address] [place], [place] [phone] PCP - General Family Medicine 06/29/20 Bayron Barclay DO [address] [place] [address] MEDICAL ONCOLOGY, [facility] [address] [place] [address] Medical Oncologist/Reconciliation Specialist Hematology and Oncology 04/28/23 documented as of this encounter
--- OUTSIDE RECORDS SUMMARY | 2024-12-27 14:40 | XMS_ITS | Encounter Summary ---
Author Organization [facility] Healthcare Address [address] [place] [address] Care Team Providers Care Railway Traction Line Worker Name Role Phone Amarilis Mcfarlane MD Primary Care Provi julito Bayron Barclay DO Unavailable [phone] Encounter Details Date Type Department Care Team (Late st Contact Info) Description 12/20/2024 Results Follow-Up [facility] Family Medicine [address] [address] Christine Katz PA [address] [address] Social History Tobacco Use Types [...] on file Legal Sex Female 7:51 AM INGREDIENT MIXER Gender Identity Female 06/06/2023 10:34 AM CDT [...] on filedocumented in this encounter Care Teams Railway Traction Line Worker Relationship Specialty Start Date End Date Amarilis Mcfarlane MD [address] [place] [address] PCP - General Family Medicine 06/29/20 Bayron Barclay DO [address] [place] [address] MEDICAL ONCOLOGY, [address] [address] Medical Oncologist/Reinforcing Steel Placer Hematology and Oncology 04/28/23 documented as of this encounter
--- OUTSIDE RECORDS SUMMARY | 2024-12-27 14:40 | XMS_ITS | Encounter Summary ---
Author Organization [facility] Facility Care Team Providers Care Engraver Copperplate Name Role Phone Brielle Mack MD Primary Care Provider Amarilis Mcfarlane MD Primary Care Provi julito Bayron Barclay DO Unavailable [phone] Encounter Details Date Type Department Care Team (Latest Contact Info) Description 02/29/2016 Orders Only [facility] CLINCONV ProviderIvonne MD [address] [place] [address] Social History Tobacco Use Types Packs/Day Years Used Date Smoking Tobacco: Never Assessed Comments Unknown Sex and Gender Information Value Date Recorded Sex Assigned at Not on file Legal Sex Female 7:51 AM INSOLE STIFFENER Gender Identity Female 06/06/2023 10:34 AM CDT [...] COVID: Suspected 09/13/2021 09/13/2021 09/14/2021 12:34 AM INSOLE STIFFENER COVID: Suspected 05/25/2024 05/25/2024 05/25/2024 9:56 AM CDT documented as of this encounter Care Teams Engraver Copperplate Relationship Specialty Start Date End Date Brielle Mack MD PCP - General 10/23/17 06/28/20 Amarilis Mcfarlane MD [facility] N [address] [place] [address] PCP - General Family Medicine 06/29/20 Bayron Barclay DO [address] [place] [address] MEDICAL ONCOLOGY, [facility] 180 [place], [place] [address] Medical Oncologist/Medical Management Trainer Hematology and Oncology 04/28/23 documented as of this encounter
--- OUTSIDE RECORDS SUMMARY | 2024-12-27 14:40 | XMS_ITS | Encounter Summary ---
Author Organization [facility] Facility Care Team Providers Care Electromechanical Technician Name Role Phone Brielle Mack MD Primary Care Provider Amarilis Mcfarlane MD Primary Care Provi julito Bayron Barclay DO Unavailable [phone] Encounter Details Date Type Department Care Team (Latest Contact Info) Description 12/01/2017 Orders Only [facility] CLINCONV ProviderIvonne MD [address] [place] [address] Social History Tobacco Use Types Packs/Day Years Used Date Smoking Tobacco: Never Assessed Comments Unknown Sex and Gender Information Value Date Recorded Sex Assigned at Not on file Legal Sex Female 7:51 AM SUPERVISOR QUILTING Gender Identity Female 06/06/2023 10:34 AM CDT [...] COVID: Suspected 09/13/2021 09/13/2021 09/14/2021 12:34 AM SUPERVISOR QUILTING COVID: Suspected 05/25/2024 05/25/2024 05/25/2024 9:56 AM CDT documented as of this encounter Care Teams Electromechanical Technician Relationship Specialty Start Date End Date Brielle Mack MD PCP - General 10/23/17 06/28/20 Amarilis Mcfarlane MD [address] [place] [address] PCP - General Family Medicine 06/29/20 Bayron Barclay DO [address] [place] [address] MEDICAL ONCOLOGY, [facility] 180 [place] [address] Medical Oncologist/Color Dipper Hematology and Oncology 04/28/23 documented as of this encounter
--- OUTSIDE RECORDS SUMMARY | 2024-12-27 14:40 | XMS_ITS | Encounter Summary ---
Author Organization [facility] Facility Care Team Providers Care Tapper Supervisor Name Role Phone Brielle Mack MD Primary Care Provider [phone] Amarilis Mcfarlane MD Primary Care Provi julito Bayron Barclay DO Unavailable [phone] Encounter Details Date Type Department Care Team (Latest Contact Info) Description 07/02/2017 Orders Only [facility] CLINCONV ProviderIvonne MD [address] [place] [address] Social History Tobacco Use Types Packs/Day Years Used Date Smoking Tobacco: Never Assessed Comments Unknown Sex and Gender Information Value Date Recorded Sex Assigned at Not on file Legal Sex Female 7:51 AM EDGE GLUER Gender Identity Female 06/06/2023 10:34 AM CDT [...] COVID: Suspected 09/13/2021 09/13/2021 09/14/2021 12:34 AM EDGE GLUER COVID: Suspected 05/25/2024 05/25/2024 05/25/2024 9:56 AM CDT documented as of this encounter Care Teams Tapper Supervisor Relationship Specialty Start Date End Date Brielle Mack MD PCP - General 10/23/17 06/28/20 Amarilis Mcfarlane MD [address] [place] [address] PCP - General Family Medicine 06/29/20 Bayron Barclay DO [address] [place] [address] MEDICAL ONCOLOGY, [facility] [address] [place] [address] Medical Oncologist/Economic Manager Hematology and Oncology 04/28/23 documented as of this encounter
--- OUTSIDE RECORDS SUMMARY | 2024-12-27 14:40 | XMS_ITS | Clinical Summary ---
Author Organization [facility] Address [address] [place] [address] Care Team Providers Care Parking Cashier Name Role Phone Amarilis Mcfarlane MD Primary [...] tablet TAKE 1 TABLET BY MOUTH DAILY CAR SHUNTER BEFORE BREAKFAST Active losartan (COZAAR) 100 MG [...] Type Department Care Team Description 12/10/2024 Scan [facility] [address] Scanned, Doc Pccl 12/09/2024 9:15 AM CDT Office Visit [facility], [address] [address] Felix Chand MD Ventricular Tachycardia (Medt ICD - New Consult ); Arrhythmia 12/09/2024 Telephone [facility], [address] [address] Felix Chand MD Information (ANESTHESIA NEEDED FOR GEN CHG) 12/09/2024 Travel from Last 3 Months Family History Medical History Relation Comments Cancer Brother 1 Lymphoma Diabetes Brother 2 Heart Disease Brother 2 NC Brother 2 Diabetes Brother 3 Diabetes Father Heart Disease Father NC Father Hyperlipidemia Mother Hypertension Mother Stroke Paternal [...] on file Legal Sex Female 3:46 PM DIGITAL ASSET MANAGER Gender Identity Not on file Sexual Orientation [...] Health/Nurse Visit [facility], [address] [address] Felix Chand MD [facility]. [address] [address] 12/15/2025 9:45 AM CDT Office Visit [facility], [address] [address] Felix Chand MD [facility]. [address] [address] Health Maintenance Due Date Last Done Comments [...] this topic Medical Devices Implanted Type Area Roads And Parking Lots Sweeper Operator Device Identifier Shelf Expiration Date Model / Serial / Lot Ipw-[id number]-Fvlxv- Mri-07/18/2014 Implanted:Qty: 1 on 07/18/2014 by Yoan Bell MD ICD [employer] CARDIAC RHYTHM AND HEART FAILURE - DIV M [id number] / [id number] / Rv Lead Ncwvkbl-Mkw-Ul i-07/18/2014 Implanted:Qty: 1 on 07/18/2014 by Yoan Bell MD Lead Implant [employer] CARDIAC RHYTHM AND HEART FAILURE - DIV M 6944-58 / [id number] / Description:RV-Callahan Ra Lead Otnwqgi-Kcv-Xr i-07/18/2014 Implanted:Qty: 1 on 07/18/2014 by Yoan Bell MD Lead Implant [employer] CARDIAC RHYTHM AND HEART FAILURE - DIV M 5076-45 / [id number] / Description:RA-Appendage Procedures Procedure Name Priority Date/Time Associated Diagnosis Comments ELECTROCARDIOGRAM (NON MIDMARK ACQUIRED) Routine 12/09/2024 9:20 AM CDT PVC's (premature ventricular contractions) from Last 3 Months Results * ELECTROCARDIOGRAM (12/09/2024 9:20 AM CDT) 12/09/2024 9:20 AM CDT Narrative [facility] - 12/11/2024 4:28 PM CDT [facility] Test Date: 2024-12-09 Pat Name: YASMINE THORPE Department: 112 Room: Gender: Female Key Holder: : [id number] Requested By: FELIX CHAND Order Number: [id number] Reading DARCY Chand Measurements Intervals [place] Rate: 81 P: 68 RI: 166 QRS: -18 QRSD: 85 T: 58 QT: 396 QTc: 461 Interpretive Statements SINUS RHYTHM POSSIBLE LEFT ATRIAL ENLARGEMENT ANTEROSEPTAL MYOCARDIAL INFARCTION, OF INDETERMINATE AGE Procedure Note Felix Chand MD - 12/11/2024 [facility] Test Date: 2024-12-09 Pat Name: YASMINE MARTINESSUSANNA Department: 112 Room: Gender: Female Key Holder: : [id number] Requested By: FELIX CHAND Order Number: [id number] Reading DARCY Chand Measurements Intervals [place] Rate: 81 P: 68 RI: 166 QRS: -18 QRSD: 85 T: 58 QT: 396 QTc: 461 Interpretive Statements SINUS RHYTHM POSSIBLE LEFT ATRIAL ENLARGEMENT ANTEROSEPTAL MYOCARDIAL INFARCTION, OF INDETERMINATE AGE Felix Chand MD PROCEDURES-ORDERABLE NO YONATHAN RGE Final Result [facility] from Last 3 Months Insurance MEDICARE [employer] Care Teams Parking Cashier Relationship Specialty Start Date End Date Amarilsi Mcfarlane MD [address] [facility] [address] [place] [address] PCP - General FAMILY PRACTICE 12/09/24
--- OUTSIDE RECORDS SUMMARY | 2024-12-27 14:40 | XMS_ITS | Encounter Summary ---
Author Organization [facility] Healthcare Address [address] [place] [address] Care Team Providers Care Bariatric Physician Name Role Phone Amarilis Mcfarlane MD Primary Care Provi julito Bayron Barclay DO Unavailable [phone] Encounter Details Date Type Department Care Team (Late st Contact Info) Description 11/14/2024 Results Follow-Up [facility] Medical Group Family Medicine [address] [address] Amarilis Mcfarlane MD [address] [place] [address] Social History Tobacco Use Types Packs/Day [...] on file Legal Sex Female 7:51 AM CLINICAL RESEARCH TECH Gender Identity Female 06/06/2023 10:34 AM CDT Sexual Orientation Straight 06/06/2023 10 :34 AM CDT documented as of this encounter Plan of Treatment Not on file documented as of this encounter Visit Diagnoses Not on filedocumented in this encounter Care Teams Bariatric Physician Relationship Specialty Start Date End Date Amarilis Mcfarlane MD [facility] [address] [place] [address] PCP - General Family Medicine 06/29/20 Bayron Barclay DO [address] [place] [address] MEDICAL ONCOLOGY, [facility] [address] [place] [address] Medical Oncologist/Gas Or Petroleum Operator Hematology and Oncology 04/28/23 documented as of this encounter
--- OUTSIDE RECORDS SUMMARY | 2024-12-27 14:40 | XMS_ITS | Encounter Summary ---
Author Organization [facility] Address [address] [place] [address] Phone Care Team Providers Care Boilers And Pressure Vessels Inspector Name Role Phone Amarilis Mcfarlane MD Primary Care Provi julito Bayron Barclay DO Unavailable [phone] Encounter Details Date Type Department Care Team (Late st Contact Info) Description 12/10/2024 Telephone [facility] Cardiology [address] [facility] Advanced Medicine 8th [place] [address] [place] [address] Lisy Diego Social History Tobacco [...] on file Legal Sex Female 7:51 AM ASSEMBLER FISHING FLOATS Gender Identity Female 06/06/2023 10:34 AM CDT [...] STATES TRANSFERRING CARE TO DR GARRETT WITH [facility] documented in this encounter Plan of Treatment Not on file documented as of this encounter Visit Diagnoses Not on filedocumented in this encounter Care Teams Boilers And Pressure Vessels Inspector Relationship Specialty Start Date End Date Amarilis Mcfarlane MD [address] [place] [address] PCP - General Family Medicine 06/29/20 Bayron Barclay DO [address] [place] [address] MEDICAL ONCOLOGY, [address] [address] Medical Oncologist/Mosaic Technician Hematology and Oncology 04/28/23 documented as of this encounter
--- OUTSIDE RECORDS SUMMARY | 2024-12-27 14:40 | XMS_ITS | Clinical Summary ---
Author Organization [facility] Address [address] [place] [address] Care Team Providers Care Tool Smith Name Role Phone Brielle Mack MD Primary Care Provider [phone] Source Comments [facility],non-owned Affiliates and Associated Physician Practices is amultiple site organization consisting of ambulatory clinics and hospital sitesin [place], [place], [place]. This disclosure is being madepursuant to the Care Everywhere program and may not contain all information available regarding this patient. Last updated 18.[facility] Allergies Active Allergy Reactions Criticality Noted Date [...] age to complete this topic Insurance [employer] HE[employer] MEDICARE Care Teams Tool Smith Relationship Specialty Start Date End Date Brielle Mack MD PCP - General Family Medicine 01/08/19
--- OUTSIDE RECORDS SUMMARY | 2024-12-27 14:40 | XMS_ITS | Encounter Summary ---
Author Organization [facility] Healthcare Address [address] [place] [address] Care Team Providers Care Auto Wash Buffer Name Role Phone Amarilis Mcfarlane MD Primary Care Provi julito Bayron Barclay DO Unavailable [phone] Encounter Details Date Type Department Care Team (Late st Contact Info) Description 12/18/2023 Telephone [facility] Family Medicine [address] [phone] Amarilis Mcfarlane MD [address] [place] [phone] Social History Tobacco Use Types Packs/Day [...] on file Legal Sex Female 7:51 AM HEADMASTER/MISTRESS Gender Identity Female 06/06/2023 10:34 AM CDT [...] documented as of this encounter Care Teams Auto Wash Buffer Relationship Specialty Start Date End Date Amarilis Mcfarlane MD [address] [place] [address] PCP - General Family Medicine 06/29/20 Bayron Barclay DO [address] [place] [address] MEDICAL ONCOLOGY, [facility] [address] [place] [address] Medical Oncologist/Aircraft Design Engineer Hematology and Oncology 04/28/23 documented as of this encounter
--- OUTSIDE RECORDS SUMMARY | 2024-12-27 14:40 | XMS_ITS | Referral Summary ---
Author Organization [facility] Address [address] [place] [address] Care Team Providers Care Web Applications Administrator Name Role Phone Amarilis Mcfarlane MD Primary Care Provi julito Bayron Barclay DO Unavailable [phone] Encounters Date Type Department Care Team Description 12/23/2024 Orders Only [facility] Family Medicine [address] [place] [phone] Amarilis Mcfarlane MD Abnormal mammogram (Primary Dx) 12/23/2024 Telephone [facility] Medicine [address] [place] [phone] Amarilis Mcfarlane MD 12/22/2024 Results Follow-Up [address] [phone] Amarilis Mcfarlane MD 12/21/2024 10:00 AM CDT Lab [facility] OP Lab [address] [place] [address] Postoperative hypothyroidism 12/21/2024 Results Follow-Up [facility] Medicine [address] [place] [phone] Amarilis Mcfarlane MD 12/21/2024 9:30 AM CDT Office Visit [address] [phone] Christine Katz PA Mass of lower inner quadrant of left breast (Primary Dx); History of thyroid cancer; Statin intolerance; Postoperative hypothyroidism; Primary insomnia; Mixed hyperlipidemia 12/20/2024 Results Follow-Up [address] [phone] Christine Katz PA 12/16/2024 Orders Only [address] [phone] Amarilis Mcfarlane MD Postoperative hypothyroidism (Primary Dx) 12/14/2024 6:59 AM CDT - 12/14/2024 11:59 PM CDT Hospital Encounter [facility] Medical Office Building [address] [address] Mixed hyperlipidemia; ICD (implantable cardioverter-defibrill ator) in place; Torsades de pointes (HCC); Myalgia; Statin intolerance Discharge Disposition: Discharge to home or self care 12/13/2024 Results Follow-Up [facility] Cardiology [address] [facility] Medical Office Building [address] [place] [address] Bairon Muhammad MD 12/10/2024 Telephone [facility] Cardiology [facility] Advanced Medicine 8th [place] [address] [place] [address] Lisy Diego 12/10/2024 Telephone [facility] Cardiology [address] [facility] Medicine 8th [place] [address] [place] [address] Bairon Muhammad MD 12/08/2024 2:30 PM CDT Office Visit [address] [phone] Amarilis Mcfarlane MD Mixed hyperlipidemia (Primary Dx); Myalgia; Postoperative hypothyroidism; Gastroesophageal reflux disease without esophagitis; Primary hypertension 11/29/2024 Orders Only [facility] Cardiology [address] [facility] 8th [place] [address] [place] [address] Nathan Irvin MD 11/25/2024 Results Follow-Up [address] [phone] Christine Katz PA Postoperative hypothyroidism (Primary Dx) 11/25/2024 1:00 PM CDT Lab [facility] Lab [address] [place] [address] Myalgia; Postoperative hypothyroidism 11/25/2024 11:00 AM CDT Office Visit [address] [phone] Christine Katz PA Myalgia (Primary Dx); Postoperative hypothyroidism; Mixed hyperlipidemia; Statin intolerance; ICD (implantable cardioverter-defibrill ator) in place; Torsades de pointes (HCC) 11/14/2024 Results Follow-Up [address] [phone] Amarilis Mcfarlane MD 11/03/2024 Telephone [facility] Cardiology [address] [facility] [address] [place] [address] Agnes Milton MD Med Management; Muscle Pain; Spasms 11/03/2024 10:00 AM GAUGE AND WEIGH MACHINE ADJUSTER Office Visit [address] [phone] Amarilis Mcfarlane MD Mixed hyperlipidemia (Primary Dx); Primary hypertension; Postoperative hypothyroidism; Palpitations; PVC's (premature ventricular contractions); Low serum vitamin B12; Hypocalcemia; Myalgia; Postmenopausal status 11/01/[address] [phone] Amarilis Mcfarlane MD 11/01/2024 Results Follow-Up [address] [phone] Angela Garrison PA 10/28/2024 8:45 AM GAUGE AND WEIGH MACHINE ADJUSTER Office Visit [facility] Cardiology [address] [place] [address] Office Building [address] [place] [address] Bairon Muhammad MD [place] (ventricular tachycardia) (HCC) (Primary Dx); ICD (implantable cardioverter-defibrill ator) in place 10/28/2024 8:15 AM GAUGE AND WEIGH MACHINE ADJUSTER Ancillary Procedure [facility] Cardiology [address] [place] [address] Office Building [address] [place] [address] [place] (ventricular tachycardia) (HCC) (Primary Dx); Encounter for fitting or adjustment of implantable cardioverter-defibrill ator (ICD) 10/27/[address] [phone] Amarilis Mcfarlane MD 10/04/2024 1:30 PM GAUGE AND WEIGH MACHINE ADJUSTER Office Visit [address] [phone] Angela Garrison PA Primary hypertension (Primary Dx); [...] 1 tablet (100 mcg total) by mouth leadership development manager before breakfast 90 tablet 3 025 Active [...] 1 tablet (125 mcg total) by mouth leadership development manager before breakfast Thyroid Function [place]; Future Erythrocyte sedimentation rate; Future Comprehensive metabolic panel; Future BMI 28.0-28.9,adult 10/04/2024 Assessment & Plan (10/04/2024 2:48 PM GAUGE AND WEIGH MACHINE ADJUSTER): BMI Follow-up includes: education provided. Pericardial effusion [...] (12/08/2024 3:09 PM CDT): Orders: Thyroid Function [place]; Future Assessment & Plan (11/25/2024 11:51 AM CDT): Orders: Synthroid 125 mcg tablet; Take 1 tablet (125 mcg total) by mouth leadership development manager before breakfast Thyroid Function [place]; Future Erythrocyte sedimentation rate; Future Comprehensive metabolic panel; Future Assessment & Plan (10/04/2024 2:50 PM GAUGE AND WEIGH MACHINE ADJUSTER): Chronic. Elevated mildly at last 2 lab checks. - Increase levothyroxine from 100-112 mcg daily - Repeat labs in 6 weeks Tingling in extremities 01/01/2024 Bilateral carpal tunnel syndrome 01/01/2024 Sphincter of Oddi dysfunction 07/22/2023 Overview (07/22/2024): Followed by GI Primary hypertension 05/26/2023 Assessment & Plan (12/08/2024 3:09 PM CDT): Assessment & Plan (10/04/2024 2:52 PM GAUGE AND WEIGH MACHINE ADJUSTER): Chronic. Mostly controlled. Patient's average readings from [...] week. Assessment & Plan (07/22/2023 3:39 PM GAUGE AND WEIGH MACHINE ADJUSTER): Chronic, stabe Continue current regimen Assessment & Plan (06/10/2023 11:28 AM CDT): Chronic, improved Continue losartan Continue clonidine only if needed Continue to follow with Cardiology Update me with any changes Call for questions Low bone mass 05/30/2022 Assessment & Plan (10/04/2024 2:49 PM GAUGE AND WEIGH MACHINE ADJUSTER): Chronic. Discussed recommendation for 500 mg of calcium daily or 3 servings of calcium in diet daily. Discussed recommendation for vitamin-D 6542-6278 international units daily. She may try to get this all from a multivitamin. Assessment & Plan (07/22/2023 3:39 PM GAUGE AND WEIGH MACHINE ADJUSTER): Chronic, stable Continue vitamin d Follow up testing ordered Assessment & Plan (05/30/2022 10:13 AM CDT): Continue vitamin d, calcium Strength training, walking H/O cardiac arrest 11/13/2021 Assessment & Plan (07/22/2023 3:37 PM GAUGE AND WEIGH MACHINE ADJUSTER): Chronic, stable Managed by cardiology Update me with any changes or concerns Assessment & Plan (05/30/2022 10:11 AM CDT): Following with cardiology Other headache syndrome 10/31/2021 Assessment & Plan (07/22/2023 3:39 PM GAUGE AND WEIGH MACHINE ADJUSTER): Acute, resolved Continue to monitor Update me if anything changes or worsens Assessment & Plan (05/30/2022 10:14 AM CDT): Occasional headaches Keep track of headaches Avoid triggers Update me if her symptoms change or worsen Assessment & Plan (10/31/2021 1:02 PM GAUGE AND WEIGH MACHINE ADJUSTER): Differential migraine versus cluster versus other With [...] 05/11/2021 Assessment & Plan (07/22/2023 3:40 PM GAUGE AND WEIGH MACHINE ADJUSTER): Chronic, stable Managed by cardiology S/p ICD placement Assessment & Plan (05/30/2022 10:13 AM CDT): S/p pacemaker Continue to follow with cardiology PVC's (premature ventricular contractions) 05/11 Assessment & Plan (07/22/2023 3:40 PM GAUGE AND WEIGH MACHINE ADJUSTER): Chronic, stable Managed by cardiology Update me with any changes or concerns Assessment & Plan (05/30/2022 10:13 AM CDT): S/p pacemaker Continue to follow with cardiology Nonsustained ventricular tachycardia 05/11/2021 Assessment & Plan (07/22/2023 3:39 PM GAUGE AND WEIGH MACHINE ADJUSTER): Chronic, stable Managed by cardiology S/p ICD placement Assessment & Plan (05/30/2022 10:13 AM CDT): S/p pacemaker Continue to follow with cardiology Family history of heart disease 05/11/2021 Assessment & Plan (07/22/2023 3:29 PM GAUGE AND WEIGH MACHINE ADJUSTER): Chronic, stable Managed by cardiology Continue current regimen Assessment & Plan (05/30/2022 10:10 AM CDT): Chronic, stable Continue to follow with cardiology Encounter for Medicare annual wellness exam 04/08 Overview (07/22/2024): Encouraged healthy diet and activity Please look into a power of insurance defense attorney or living will Health Maintenance: Last mammogram:07/31, 08/01- WNL Last DEXA: 01/27- Low bone mass-ordered Last colonoscopy: 06/28-repeat in 10 years Last Tdap: encouraged Last pneumonia: up to date Last Shingrix: reviewed Last Flu: reviewed Last COVID: reviewed Assessment & Plan (07/22/2024 8:04 AM GAUGE AND WEIGH MACHINE ADJUSTER): Encouraged healthy diet and activity Please look into a power of insurance defense attorney or living will Health Maintenance: Last mammogram:07/31, 08/01- WNL Last DEXA: 01/27- Low bone mass-ordered Last colonoscopy: 06/28-repeat in 10 years Last Tdap: encouraged Last pneumonia: up to date Last Shingrix: reviewed Last Flu: reviewed Last COVID: reviewed Assessment & Plan (07/22/2023 3:28 PM GAUGE AND WEIGH MACHINE ADJUSTER): Encouraged healthy diet and activity Please look into a power of insurance defense attorney or living will Health Maintenance: Last mammogram:07/31- WNL Last DEXA: 01/27- Low bone mass Last colonoscopy: 06/28-repeat in 10 years Last Tdap: encouraged Last pneumonia: up to date Last Shingrix: reviewed Last Flu: reviewed Last COVID: reviewed Assessment & Plan (05/30/2022 10:09 AM CDT): Encouraged healthy diet and activity Please look into a power of insurance defense attorney or living will Health Maintenance: Last mammogram:scheduled Last DEXA: 2020- Low bone mass Last colonoscopy: 06/28-repeat in 10 years Last Tdap: encouraged Last pneumonia: due second one Last Shingrix: reviewed Last Flu: reviewed Last COVID: reviewed Assessment & Plan (04/25/2021 2:08 PM CDT): Encouraged healthy diet and activity Please look into a power of insurance defense attorney or living will Wear sun [...] (heartburn) Assessment & Plan (07/22/2023 3:36 PM GAUGE AND WEIGH MACHINE ADJUSTER): Chronic, stable Continue prilosec for now Consider [...] untreated Assessment & Plan (10/31/2021 1:01 PM GAUGE AND WEIGH MACHINE ADJUSTER): With esophagitis and gastritis on her CT scan Continue Prilosec b.i.d. 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 network security analyst Update me after the visit Assessment & Plan (04/25/2021 12:16 PM CDT): Continue omeprazole Reviewed the risk and benefits of medication Grief 08/01/2020 Assessment & Plan (07/22/2023 3:37 PM GAUGE AND WEIGH MACHINE ADJUSTER): Chronic, stable Continue supportive care Assessment & Plan (05/30/2022 10:11 AM CDT): Improved, doing well with supportive care Assessment & Plan (04/25/2021 12:15 PM CDT): Patient with a significant amount of loss over the last year Continue supportive care Update me if her mood worsens or changes Assessment & Plan (08/01/2020 1:22 PM GAUGE AND WEIGH MACHINE ADJUSTER): Some of her symptoms may be related to her most recent loss- weight loss Continue to use the support around her Update me with any concerns ICD (implantable cardioverter-defibrillator) in place 05/27/2016 Overview (06/19/2022): Medtronic Dual ICD-Evera. Dx; Cardiac Arrest, [place]. DOI 07/18/2014-Dr Bell. CareEcociclus remote is not working. Patient prefers office checks Q3 months. Assessment & Plan (11/25/2024 11:51 AM CDT): Orders: CT Coronary Calcium Scoring; Future Assessment & Plan (07/22/2023 3:38 PM GAUGE AND WEIGH MACHINE ADJUSTER): Chronic, stable Managed by cardiology Assessment & [...] CDT): Assessment & Plan (07/22/2023 3:38 PM GAUGE AND WEIGH MACHINE ADJUSTER): Chronic, stable Managed by oncology Continue to monitor Assessment & Plan (05/30/2022 10:12 AM CDT): Chronic, stable Follows with oncology Continue synthroid Assessment & Plan (04/25/2021 2:10 PM CDT): Continue levothyroxine at current dose Continue to follow with Dr Barclay Resolved Problems Problem Noted Date Diagnosed Date Resolved Date Hypokalemia 06/02/2023 07/22/2024 Assessment & Plan (07/22/2023 3:38 PM GAUGE AND WEIGH MACHINE ADJUSTER): Chronic,s table Continue replacement History of torsades de pointes 05/08/2021 07/22/2024 Assessment & Plan (07/22/2023 3:38 PM GAUGE AND WEIGH MACHINE ADJUSTER): Chronic, stable Managed by cardiology S/p pacemaker Assessment & Plan (05/30/2022 10:12 AM CDT): S/p pacemaker Continue to follow with cardiology Allergic rhinitis 04/25/2021 07/22/2024 Assessment & Plan (07/22/2023 3:29 PM GAUGE AND WEIGH MACHINE ADJUSTER): Chronic, stable Asymptomatic Continue to monitor Assessment & Plan (05/30/2022 10:09 AM CDT): Chronic, stable Assessment & Plan (04/25/2021 2:11 PM CDT): Continue flonase Thyroid cancer ([facility]) 04/17/2018 Cardiac arrest 05/27/2016 11/13/2021 Assessment & [...] on file Legal Sex Female 7:51 AM GAUGE AND WEIGH MACHINE ADJUSTER Gender Identity Female 06/06/2023 10:34 AM CDT [...] hypothyroidism LIPID PANEL Routine 11/12/2024 9:39 AM GAUGE AND WEIGH MACHINE ADJUSTER Mixed hyperlipidemia ERYTHROCYTE SEDIMENTATION RATE Routine 11/12/2024 9:39 AM GAUGE AND WEIGH MACHINE ADJUSTER Myalgia CRP (ACUTE PHASE) Routine 11/12/2024 9:3 9 AM GAUGE AND WEIGH MACHINE ADJUSTER Myalgia CREATINE KINASE (CK), TOTAL Routine 11/12/2024 9:39 AM GAUGE AND WEIGH MACHINE ADJUSTER Myalgia MAGNESIUM Routine 11/12/2024 9:39 AM GAUGE AND WEIGH MACHINE ADJUSTER Hypocalcemia PHOSPHORUS Routine 11/12/2024 9:39 AM GAUGE AND WEIGH MACHINE ADJUSTER Hypocalcemia PTH Routine 11/12/2024 9:39 AM GAUGE AND WEIGH MACHINE ADJUSTER Hypocalcemia VITAMIN D 25 HYDROXY Routine 11/12/2024 9:39 AM GAUGE AND WEIGH MACHINE ADJUSTER Hypocalcemia CALCIUM, IONIZED Routine 11/12/2024 9:39 AM GAUGE AND WEIGH MACHINE ADJUSTER Hypocalcemia VITAMIN B12 Routine 11/12/2024 9:39 AM GAUGE AND WEIGH MACHINE ADJUSTER Low serum vitamin B12 THYROID FUNCTION CASCADE Routine 11/12/2024 9:39 AM GAUGE AND WEIGH MACHINE ADJUSTER Postoperative hypothyroidism TSH Routine 10/29/2024 12:31 PM GAUGE AND WEIGH MACHINE ADJUSTER Postoperative hypothyroidism T4, FREE Routine 10/29/2024 12:31 PM GAUGE AND WEIGH MACHINE ADJUSTER Postoperative hypothyroidism ECG 12-LEAD Routine 10/28/2024 9:29 AM GAUGE AND WEIGH MACHINE ADJUSTER ICD (implantable cardioverter-defibri llator) in place [place] (ventricular tachycardia) (HCC) DEVICE CHECK - IN OFFICE Routine 10/28/2024 7:51 AM GAUGE AND WEIGH MACHINE ADJUSTER Encounter for fitting or adjustment of implantable cardioverter-defibri llator (ICD) SCREENING MAMMOGRAM BILATERAL W ISAC Schedule Routine, Read Routine (OP Routine) 07/16/2024 9:37 AM GAUGE AND WEIGH MACHINE ADJUSTER Screening mammogram, encounter for HEPATITIS C ANTIBODY [...] was last revised 2020. Testing performed by: [facility], [address] [facility], [place]., [address] Blood 12/21/2024 10:0 4 AM CDT 12/21/2024 3:27 PM CDT Amarilis Mcfarlane MD LAB BLOOD ORDERABLE S Final Result [facility] Department [place] [address] * Thyroid Function [place] (12/20/2024 7:05 AM CDT) TSH 1.22 0.40 - 4.50 mIU/L [facility] Blood 12/20/2024 7:05 AM CDT 12/20/2024 7:05 AM CDT Amarilis Mcfarlane MD LAB BLOOD ORDERABLE S Final Result [facility] [address] [place] [address] * CT Coronary Calcium Scoring (12/14/2024 7:40 [...] of blood cholesterol: a report of the [place] [employer]/[place] [employer] Association Task Force on Clinical Practice Guidelines. J Am Rakel Cardiol, 73 (24) (2019), pp. [phone] THIS IS AN ELECTRONICALLY VERIFIED FINAL REPORT 12/19/2024 3:26 PM - Electronically signed by Felix Babcock M.D. MJ: [email or web address] Report ID: [id number] Reading Location: [place] [address] Procedure Note Felix Babcock MD - 12/19/2024 [...] of blood cholesterol: a report of the [place] [employer]/[place] [employer] Association Task Force on Clinical Practice Guidelines. J Am Rakel Cardiol, 73 (24) (2019), pp. [id number] THIS IS AN ELECTRONICALLY VERIFIED FINAL REPORT 12/19/2024 3:26 PM - Electronically signed by Felix Babcock M.D. MJ: [email or web address] Report ID: [id number] Reading Location: [id number] Christine PIZARRO IMG CT PROCEDURES Final Result [...] is programmed Adaptive, currently 3.5/0.4. Presenting Rhythm (HI) Atrial Pacing-Ventricular Sensing (AP-VS) --- AP/VS 60 [...] output is programmedAdaptive, currently 3.5/0.4. Presenting Rhythm (HI) Atrial Pacing-Ventricular Sensing (AP-VS) --- AP/VS 60 [...] reviewed 2021. Testing performed by: [facility], [address] [place] [address]., [address] Blood 11/25/2024 1:06 PM CDT 11/25/2024 2:12 PM CDT us Christine PIZARRO LAB BLOOD ORDERABLES Final Resul t [facility] [address] [facility] Department [place] [address] * Thyroid Function [place] (11/25/2024 1:06 PM CDT) TSH 1.58 0.30 - 4.20 mcIUnit/mL Comment:Testing performed by : [address] [address] Blood 11/25/2024 1:06 PM CDT 11/25/2024 2:12 PM CDT Christine PIZARRO LAB BLOOD ORDERABLES Final Resul t Performing Organization Address City/[facility] Co de Phone Number [place] [address] [facility] [place] [address] * Erythrocyte sedimentation rate (11/25/2024 1:06 PM CDT) [facility] Erythrocyte sedimentation rate 5 1 - 30 mm/hr Comment:Testing performed by : [address] [address] Blood 11/25/2024 1:06 PM CDT 11/25/2024 2:12 PM CDT Christine PIZARRO LAB BLOOD ORDERABLES Final Resul t Performing Organization Address [facility] Co de Phone Number [place] [address] [facility] [place] [address] * Comprehensive metabolic panel (11/25/2024 1:06 PM CDT) [facility] Sodium 142 135 - 145 mmol/L Comment:Testing performed by : [address] [address] Potassium, pl 4.0 3.3 - 4.9 mmol/L [facility] Comment:Testing performed by : [address] [address] Chloride 105 97 - 110 mmol/L [facility] Comment:Testing performed by : [address] [address] CO2 25 22 - 32 mmol/L [facility] Comment:Testing performed by : [address] [address] Anion gap 12 2 - 15 mmol/L [facility] Comment:Testing performed by : [address] [address] BUN 13 6 - 25 mg/dL [facility] Comment:Testing performed by : [address] [address] Creatinine 0.90 0.60 - 1.10 mg/dL [facility] Comment:Testing performed by : [address] [address] Glucose 131 70 - 199 mg/dL [facility] [...] was last revised 2022. Testing performed by: [address] [address] Calcium 8.8 8.5 - 10.3 mg/dL [facility] Comment:Testing performed by : [address] [address] Bilirubin, total 0.7 0.1 - 1.2 mg/dL [facility] Comment:Testing performed by : [address] [address] Protein, pl 6.9 6.5 - 8.5 g/dL [facility] Comment:Testing performed by : [address] [address] Albumin 4.3 3.5 - 5.0 g/dL [facility] Comment:Testing performed by : [address] [address] Alk phos 76 40 - 130 Units/L [facility] Comment:Testing performed by : [address] [address] ALT 11 7 - 45 Units/L [facility] Comment:Testing performed by : [address] [address] AST 15 10 - 45 Units/L [facility] Comment:Testing performed by : [address] [address] Blood 11/25/2024 1:06 PM CDT 11/25/2024 2:12 PM CDT Christine PIZARRO LAB BLOOD ORDERABLES Final Resul t Performing Organization Address [facility] Co de Phone Number [facility] [address] [facility] Department [place] [address] * Thyroid Function [place] (11/12/2024 9:39 AM GAUGE AND WEIGH MACHINE ADJUSTER) Pathologist [facility] TSH 3.87 0.40 - 4.50 mIU/L [facility] Blood 11/12/2024 9:39 AM GAUGE AND WEIGH MACHINE ADJUSTER 11/12/2024 9:39 AM GAUGE AND WEIGH MACHINE ADJUSTER Narrative [facility] - 11/13/2024 10:52 AM GAUGE AND WEIGH MACHINE ADJUSTER FASTING:YES FASTING: YES us Amarilis Mcfarlane MD LAB BLOOD ORDERABLE S Final Result Performing Organization Address [facility] Phone Number [facility] [address] [place] [address] * Calcium, ionized (11/12/2024 9:39 AM GAUGE AND WEIGH MACHINE ADJUSTER) [facility] Calcium, Ionized 4.7 4.7 - 5.5 mg/dL [facility] Blood 11/12/2024 9:39 AM GAUGE AND WEIGH MACHINE ADJUSTER 11/12/2024 9:39 AM GAUGE AND WEIGH MACHINE ADJUSTER Narrative [facility] - 11/13/2024 10:52 AM GAUGE AND WEIGH MACHINE ADJUSTER FASTING:YES FASTING: YES us Amarilis Mcfarlane MD LAB BLOOD ORDERABLE S Final Result Performing Organization Address [facility] Phone Number [facility] [address] [place] [address] * Vitamin D 25 hydroxy (11/12/2024 9:39 AM GAUGE AND WEIGH MACHINE ADJUSTER) Pathologist [facility] Vitamin D 25-OH 51 30 - 100 [...] D, (D2,D3), LC/MS/MS is recommended: order code 73547 (patients >2yrs). See Note 1 Note 1 For additional information, please refer to http://education.Trampoline/faq/IDH021 (This link is being provided for informational/ educational purposes only.) Blood 11/12/2024 9:39 AM GAUGE AND WEIGH MACHINE ADJUSTER 11/12/2024 9:39 AM GAUGE AND WEIGH MACHINE ADJUSTER Narrative [facility] - 11/13/2024 10:52 AM GAUGE AND WEIGH MACHINE ADJUSTER FASTING:YES FASTING: YES us Amarilis Mcfarlane MD LAB BLOOD ORDERABLE S Final Result Performing Organization Address [facility] de Phone Number [facility] [address] [place] [address] * Erythrocyte sedimentation rate (11/12/2024 9:39 AM GAUGE AND WEIGH MACHINE ADJUSTER) Erythrocyte sedimentation rate 2 < OR = 30 mm/h [facility] Blood 11/12/2024 9:39 AM GAUGE AND WEIGH MACHINE ADJUSTER 11/12/2024 9:39 AM GAUGE AND WEIGH MACHINE ADJUSTER Narrative [facility] - 11/13/2024 10:52 AM GAUGE AND WEIGH MACHINE ADJUSTER FASTING:YES FASTING: YES Amarilis Mcfarlane MD LAB BLOOD ORDERABLE S Final Result Performing Organization Address [facility] de Phone Number [facility] [address] [place] [address] * CRP (acute phase) (11/12/2024 9:39 AM GAUGE AND WEIGH MACHINE ADJUSTER) C-RP <3.0 <8.0 mg/L [facility] Blood 11/12/2024 9:39 AM GAUGE AND WEIGH MACHINE ADJUSTER 11/12/2024 9:39 AM GAUGE AND WEIGH MACHINE ADJUSTER Narrative [facility] - 11/13/2024 10:52 AM GAUGE AND WEIGH MACHINE ADJUSTER FASTING:YES FASTING: YES us Amarilis Mcfarlane MD LAB BLOOD ORDERABLE S Final Result Performing Organization Address [facility]/ZIP Co de Phone Number [facility] [address] [place] [address] * Phosphorus (11/12/2024 9:39 AM GAUGE AND WEIGH MACHINE ADJUSTER) Phosphorus, sr 4.0 2.1 - 4.3 mg/dL [facility] Blood 11/12/2024 9:39 AM GAUGE AND WEIGH MACHINE ADJUSTER 11/12/2024 9:39 AM GAUGE AND WEIGH MACHINE ADJUSTER Narrative [facility] - 11/13/2024 10:52 AM GAUGE AND WEIGH MACHINE ADJUSTER FASTING:YES FASTING: YES Amarilis Mcfarlane MD LAB BLOOD ORDERABLE S Final Result Performing Organization Address [facility] de Phone Number [facility] [employer] [facility] [address] [place] [address] * PTH (11/12/2024 9:39 AM GAUGE AND WEIGH MACHINE ADJUSTER) Parathyroid hormone, intact 24 16 - 77 pg/mL [facility] Comment: Interpretive Guide Intact PTH Calcium ------- Normal Parathyroid Normal Normal Hypoparathyroidism Low or Low Normal Low Hyperparathyroidism Primary Normal or High High Secondary High Normal or Low Tertiary High High Non-Parathyroid Hypercalcemia Low or Low Normal High Blood 11/12/2024 9:39 AM GAUGE AND WEIGH MACHINE ADJUSTER 11/12/2024 9:39 AM GAUGE AND WEIGH MACHINE ADJUSTER Narrative QUEST - 11/13/2024 10:52 AM GAUGE AND WEIGH MACHINE ADJUSTER FASTING:YES FASTING: YES us Amarilis Mcfarlane MD LAB BLOOD ORDERABLE S Final Result Performing Organization Address [facility] de Phone Number [facility] [employer] [facility] [address] [place] [address] * Magnesium (11/12/2024 9:39 AM GAUGE AND WEIGH MACHINE ADJUSTER) Magnesium 2.2 1.5 - 2.5 mg/dL [facility] Blood 11/12/2024 9:39 AM GAUGE AND WEIGH MACHINE ADJUSTER 11/12/2024 9:39 AM GAUGE AND WEIGH MACHINE ADJUSTER Narrative [facility] - 11/13/2024 10:52 AM GAUGE AND WEIGH MACHINE ADJUSTER FASTING:YES FASTING: YES us Amarilis Mcfarlane MD LAB BLOOD ORDERABLE S Final Result Performing Organization Address [facility] Co de Phone Number [facility] [address] [place] [address] * (ABNORMAL) Vitamin B12 (11/12/2024 9:39 AM GAUGE AND WEIGH MACHINE ADJUSTER) Vitamin B12 1,112(H) 200 - 1,100 pg/mL [facility] Blood 11/12/2024 9:39 AM GAUGE AND WEIGH MACHINE ADJUSTER 11/12/2024 9:39 AM GAUGE AND WEIGH MACHINE ADJUSTER Narrative [facility] - 11/13/2024 10:52 AM GAUGE AND WEIGH MACHINE ADJUSTER FASTING:YES FASTING: YES us Amarilis Mcfarlane MD LAB BLOOD ORDERABLE S Final Result Performing Organization Address [facility] Co de Phone Number [facility] [employer] [facility] [address] [place] [address] * Creatine kinase (CK), total (11/12/2024 9:39 AM GAUGE AND WEIGH MACHINE ADJUSTER) Pathologist [facility] CK 51 20 - 243 U/L [facility] Blood 11/12/2024 9:39 AM GAUGE AND WEIGH MACHINE ADJUSTER 11/12/2024 9:39 AM GAUGE AND WEIGH MACHINE ADJUSTER Narrative [facility]ST - 11/13/2024 10:52 AM GAUGE AND WEIGH MACHINE ADJUSTER FASTING:YES FASTING: YES us Amarilis Mcfarlane MD LAB BLOOD ORDERABLE S Final Result Performing Organization Address [facility] de Phone Number [facility] [address] [facility] [place] [address] * (ABNORMAL) Lipid panel (11/12/2024 9:39 AM GAUGE AND WEIGH MACHINE ADJUSTER) Cholesterol 175 <200 mg/dL [facility] [...] of LDL-C. Eric SS et al. LEXX. 2013;310(33): 4556-4284 (http://education.Trampoline/faq/UXO836) Chol/HDL ratio 3.2 <5.0 (calc) [facility] Non-HDL, (LDL+VLDL) 120 <130 mg/dL (calc) [facility] Comment: For patients with diabetes plus 1 major ASCVD risk factor, treating to a non-HDL-C goal of <100 mg/dL (LDL-C of <70 mg/dL) is considered a therapeutic option. Blood 11/12/2024 9:39 AM GAUGE AND WEIGH MACHINE ADJUSTER 11/12/2024 9:39 AM GAUGE AND WEIGH MACHINE ADJUSTER Narrative [facility]ST - 11/13/2024 10:52 AM GAUGE AND WEIGH MACHINE ADJUSTER FASTING:YES FASTING: YES us Amarilis Mcfarlane MD LAB BLOOD ORDERABLE S Final Result [facility] [address] [place] [address] * (ABNORMAL) TSH (10/29/2024 12:31 PM GAUGE AND WEIGH MACHINE ADJUSTER) TSH 7.74(H) 0.40 - 4.50 mIU/L [facility] Blood 10/29/2024 12:3 1 PM GAUGE AND WEIGH MACHINE ADJUSTER 10/29/2024 12:31 PM GAUGE AND WEIGH MACHINE ADJUSTER us Angela PIZARRO LAB BLOOD ORDERABLES Milagros l Result [facility] [address] [place] [address] * T4, free (10/29/2024 12:31 PM GAUGE AND WEIGH MACHINE ADJUSTER) Free T4 1.3 0.8 - 1.8 ng/dL [facility] [employer] [facility] [place] Blood 10/29/2024 12:3 1 PM GAUGE AND WEIGH MACHINE ADJUSTER 10/29/2024 12:31 PM GAUGE AND WEIGH MACHINE ADJUSTER Angela Garrison PA LAB BLOOD ORDERABLES Milagros l Result [facility] [address] [place] [address] * ECG 12 lead (10/28/2024 9:29 AM GAUGE AND WEIGH MACHINE ADJUSTER) Bairon Muhammad MD ECG ORDERABLES Final R esult * DEVICE CHECK - IN OFFICE (10/28/2024 7:51 AM GAUGE AND WEIGH MACHINE ADJUSTER) Anatomical Region Laterality Modality Other 10/28/2024 2:00 AM GAUGE AND WEIGH MACHINE ADJUSTER Narrative 11/01/2024 7:23 PM GAUGE AND WEIGH MACHINE ADJUSTER Interpretation Summary: Battery and Leads (BL) Less than 1 year of battery longevity noted --- battery longevity estimate: 5 months Normal parameters identified on lead(s) Presenting Rhythm (HI) Atrial Sensing-Ventricular Sensing (-VS) --- Underlying rhythm: NSR Procedure Note Bairon Muhammad MD - 11/01/2024 Interpretation Summary: Battery and Leads (BL) Less than 1 year of battery longevity noted --- battery longevityestimate: 5 months Normal parameters identified on lead(s) Presenting Rhythm (HI) Atrial Sensing-Ventricular Sensing (-VS) --- Underlying rhythm: NSR Brandy Jj MD [facility] CARDIAC SERVICES PROCEDURES Final Result * Screening Mammogram Bilateral W Isac (07/16/2024 9:37 AM GAUGE AND WEIGH MACHINE ADJUSTER) Anatomical Region Laterality Modality Breast Bilateral Mammography Impressions 07/16/2024 5:12 PM GAUGE AND WEIGH MACHINE ADJUSTER BI-RADS ATLAS category (overall): 1 - Negative There is no mammographic evidence of malignancy. A 1 year screening mammogram is recommended. The patient has been or will be contacted. We recommend annual screening mammography for women at average risk of breast cancer beginning at age 40, based on guidelines of the [place] [employer] (ACR Practice Parameter for the Performance of Screening and Diagnostic Mammography) and [place] [employer]. For women with and elevated risk of breast cancer, please refer to the ACR Practice Parameter for specific screening recommendations. The patient will be entered into a reminder system with a target due date of 1 year for her next screening exam. Narrative 07/16/2024 5:12 PM GAUGE AND WEIGH MACHINE ADJUSTER Screening Mammogram Bilateral W Isac: 07/16/24 The [...] a test for HCV RNA (test code 39023) is suggested. For additional information please refer to http://education.[place]ream [place]/faq/FUM81w5 (This link is being provided for informational/ educational purposes only.) Blood 06/04/2022 9:22 AM CDT 06/04/2022 9:25 AM CDT Narrative QUE[facility] - 06/05/2022 10:11 AM CDT FASTING:YES FASTING: YES us Amarilis Mcfarlane MD LAB MICROBIOLOGY - GENERAL ORDERABLES Final Result [facility] [address] [place] [address] * Dexa Axial Skeleton Bone Density 1 or 2 Site (01/31/2022 9:03 AM CDT) Anatomical Region Laterality Modality Body N/A Mammography 01/31/2022 3:21 PM CDT Narrative 01/31/2022 3:21 PM CDT EXAM DESCRIPTION: DEXA AXIAL SKELETON BONE DENSITY 1 OR MORE SITES REASON FOR STUDY: 66 y/o year old F with given history of screening. 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 TB: TB Report ID: [id number] [facility] Procedure Note [place], Amrita Hall MD - 01/31/2022 EXAM DESCRIPTION: DEXA AXIAL SKELETON BONE DENSITY 1 OR MORE SITES REASON FOR STUDY: 66 y/o year old F with given history ofscreening. 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 TB: TB Report ID: [id number] Reading Location: [facility] Amarilis Mcfarlane MD IMG DXA PROCEDURES Final Result * Colonoscopy (06/27/2021) Anatomical Region Laterality Modality Other Historical Provider ENDOSCOPY PROCEDURES Milagros l Result from Last 3 Months or Most Recently Relevant to Health Maintenance Insurance MEDICARE [place] MEDICARE [employer] [place] MEDICARE [facility] [place] Care Teams Web Applications Administrator Relationship Specialty Start Date End Date Amarilis Mcfarlane MD [address] [place] [address] PCP - General Family Medicine 06/29/20 Bayron Barclay DO [address] [place] [address] MEDICAL ONCOLOGY, [facility] [address] [place] [address] Medical Oncologist/Application Development Director Hematology and Oncology 04/28/23
--- OUTSIDE RECORDS SUMMARY | 2024-12-27 14:40 | XMS_ITS | Encounter Summary ---
Author Organization [facility] Address [address] [place] [address] Phone Care Team Providers Care Electroformer Name Role Phone Amarilis Mcfarlane MD Primary Care Provi julito Bayron Barclay DO Unavailable [phone] Encounter Details Date Type Department Care Team (Late st Contact Info) Description 12/13/2024 Results Follow-Up [facility] Cardiology [address] [facility] Medical Office Building [address] [place] [address] Bairon Muhammad MD [address] [facility] [address] [place] [address] Social History Tobacco Use Types [...] on file Legal Sex Female 7:51 AM COLD MILL INSPECTOR Gender Identity Female 06/06/2023 10:34 AM CDT Sexual Orientation Straight 06/06/2023 10 :34 AM CDT documented as of this encounter Plan of Treatment Not on file documented as of this encounter Visit Diagnoses Not on filedocumented in this encounter Care Teams Electroformer Relationship Specialty Start Date End Date Amarilis Mcfarlane MD [address] [place], [place] [id number] PCP - General Family Medicine 06/29/20 Bayron Barclay DO [address] [place] [address] MEDICAL ONCOLOGY, [facility] [address] [place] [address] Medical Oncologist/Oil Pipeline Dispatcher Hematology and Oncology 04/28/23 documented as of this encounter
--- OUTSIDE RECORDS SUMMARY | 2024-12-27 14:40 | XMS_ITS | Encounter Summary ---
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 Gender Identity Female 06/06/2023 10:34 AM CDT Sexual Orientation Straight 06/06/2023 10 :34 AM CDT documented as of this encounter Plan of Treatment Not on file documented as of this encounter Visit Diagnoses Not on filedocumented in this encounter Care Teams Contamination Consultant Relationship Specialty Start Date End Date Amarilis Mcfarlane MD [facility] [address] [place] [address] PCP - General Family Medicine 06/29/20 Bayron Barclay DO [address] [place] [address] MEDICAL ONCOLOGY, [facility] [address] [place] [address] Medical Oncologist/Inside Sales Professional Hematology and Oncology 04/28/23 documented as of this encounter
--- OUTSIDE RECORDS SUMMARY | 2024-12-27 14:40 | XMS_ITS | Encounter Summary ---
Author Organization [facility] Facility Care Team Providers Care Sales And Training Specialist Name Role Phone Brielle Mack MD Primary Care Provider Amarilis Mcfarlane MD Primary Care Provi julito Bayron Barclay DO Unavailable [phone] Encounter Details Date Type Department Care Team (Latest Contact Info) Description 05/27/2016 Orders Only [facility] CLINCONV ProviderIovnne MD [address] [place] [address] Social History Tobacco Use Types Packs/Day Years Used Date Smoking Tobacco: Never Assessed Comments Unknown Sex and Gender Information Value Date Recorded Sex Assigned at Not on file Legal Sex Female 7:51 AM PROGRAM ADVOCATE Gender Identity Female 06/06/2023 10:34 AM CDT [...] COVID: Suspected 09/13/2021 09/13/2021 09/14/2021 12:34 AM PROGRAM ADVOCATE COVID: Suspected 05/25/2024 05/25/2024 05/25/2024 9:56 AM CDT documented as of this encounter Care Teams Sales And Training Specialist Relationship Specialty Start Date End Date Brielle Mack MD PCP - General 10/23/17 06/28/20 Amarilis Mcfarlane MD [facility] [address] [place] [address] PCP - General Family Medicine 06/29/20 Bayron Barclay DO [address] [place] [address] MEDICAL ONCOLOGY, [facility] [address] [place], [place] [address] Medical Oncologist/Training Project Manager Hematology and Oncology 04/28/23 documented as of this encounter
--- OUTSIDE RECORDS SUMMARY | 2024-12-27 14:40 | XMS_ITS | Encounter Summary ---
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
== END 2024-12-27 13:03 | disposition home or self-care (01) ==
PROVIDERS: PCP Family Medicine; Visit Provider Family Medicine
DX: R92.8 Other abnormal and inconclusive findings on diagnostic imaging of breast (principal)
CPT/HCPCS: 76642; 77062; 77066; G0279

== ENCOUNTER 2025-03-25 17:00 | Emergency (ER) | payer MEDICARE, OTHER, SELFPAY ==
--- OUTSIDE RECORDS SUMMARY | 2025-03-25 17:02 | XMS_ITS | Clinical Summary ---
Author Organization [facility] Address [address] [place] [address] Care Team Providers Care Licensed Home Inspector Name Role Phone Amarilis Mcfarlane MD [...] tablet TAKE 1 TABLET BY MOUTH DAILY CHANGE MANAGEMENT SPECIALIST BEFORE BREAKFAST Active losartan (COZAAR) 100 MG tablet Take 1 tablet (100 mg total) by mouth daily. 5 Active meclizine (ANTIVERT) 25 MG tablet TAKE 1 TABLET(25 MG) BY MOUTH THREE TIMES DAILY NEEDED FOR DIZZINESS 5 Active omeprazole (PRILOSEC) 20 MG capsule Take 1 capsule (20 mg total) by mouth. 5 Active Active Problems Problem Noted Date Diagnosed Date Paroxysmal ventricular tachycardia ([facility]HS/ [facility]) 03/06/2025 Overview (03/06/2025): Medtronic Evera DCICD implanted 07/18/2014 for Paroxsymal VT. SSS (sick sinus syndrome) ([facility] HHS/HCC) 12/2024 Overview (12/10/2024): Medtronic Evera ICD implanted 07/18/2014 for SSS Pericardial effusion ([facility]) 08/19/2024 Mixed hyperlipidemia 07/22/2024 Postoperative hypothyroidism 01/01/2024 Tingling in extremities 01/01/2024 Sphincter of Oddi dysfunction 07/22/2023 Overview (11/25/2024): Followed by GI Primary hypertension 05/26/2023 H/O cardiac arrest 11/13/2021 Family history of heart disease 05/11/2021 Nonsustained ventricular tachycardia ([facility] HH S/HCC) 05/11/2021 PVC's (premature ventricular contractions) 05/11 QT prolongation 05/11/2021 GERD (gastroesophageal reflux disease) ICD (implantable cardioverter-defibrillator) in place 05/27/2016 Overview (12/10/2024): Medtronic Evera ICD implanted 07/18/2014 for SSS History of thyroid cancer 06/17/2015 Defibrillator discharge 06/17/2015 Encounters Date Type Department Care Team Description 02/28/2025 Travel 02/27/2025 2:30 PM CDT Allied Health/Nurse Visit [facility] [address] [address] Felix Wild MD Remote Device Check from Last 3 Months Family History Medical History Relation Comments Cancer Brother 1 Lymphoma Diabetes Brother 2 Heart Disease Brother 2 AR Brother 2 Diabetes Brother 3 Diabetes Father Heart Disease Father AR Father Hyperlipidemia Mother Hypertension Mother Stroke Paternal [...] on file Legal Sex Female 3:46 PM 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 [facility] [address] [place] [address] 05/30/2025 2:40 PM CDT Allied Health/Nurse Visit [facility] [address] [place] [address] Felix Wild MD [facility]. [facility] [address] [place] [address] 12/15/2025 9:45 AM CDT Office Visit [facility] [address] [place] [address] Felix Wild MD [facility]. [facility] [address] [place] [address] Health Maintenance Due Date Last Done Comments [...] this topic Medical Devices Implanted Type Area Tool Coordinator Device Identifier Shelf Expiration Date Model / Serial / Lot Bms-Fny-Zxswk- Mri-07/18/2014 Implanted:Qty: 1 on 07/18/2014 by Yoan Bell MD ICD [employer] CARDIAC RHYTHM AND HEART FAILURE - DIV M [id number] / [id number] / Rv Lead Htylion-Nhs-Uj i-07/18/2014 Implanted:Qty: 1 on 07/18/2014 by Yoan Bell MD Lead Implant [employer] CARDIAC RHYTHM AND HEART FAILURE - DIV M 6944-58 / [id number] / Description:[place] Ra Lead Jpsgkhy-Xfm-No i-07/18/2014 Implanted:Qty: 1 on 07/18/2014 by Yoan Bell MD Lead Implant [employer] CARDIAC RHYTHM AND HEART FAILURE - DIV M [id number] / [id number] / Description:RA-Appendage Insurance MEDICARE 3G Multimedia Care Teams Licensed Home Inspector Relationship Specialty Start Date End Date Amarilis Mcfarlane MD [address] [facility] [address] [place] [address] PCP - General FAMILY PRACTICE 12/09/24
--- OUTSIDE RECORDS SUMMARY | 2025-03-25 17:02 | XMS_ITS | Encounter Summary ---
Author Organization [facility] Facility Care Team Providers Care Nursing Specialist Name Role Phone Brielle Mack MD Primary Care Provider Amarilis Mcfarlane MD Primary Care Provi julito Bayron Barclay DO Unavailable [phone] Christine Katz Unavailable Encounter Details Date Type Department Care Team (Latest Contact Info) Description 08/29/2016 Orders Only [facility] CLINCONV Provider, MD Ivonne [address] [place] [address] Social History Tobacco Use Types Packs/Day Years Used Date Smoking Tobacco: Never Assessed Comments Unknown Sex and Gender Information Value Date Recorded Sex Assigned at Not on file Legal Sex Female 7:51 AM PHOTOGRAPHER MODEL Gender Identity Female 06/06/2023 10:34 AM CDT Sexual Orientation Straight 06/06/2023 10 :34 AM CDT documented as of this encounter Plan of Treatment Not on file documented as of this encounter Procedures Procedure Name Priority Date/Time Associated Diagnosis Comments CARDIOLOGY REPORT 09/04/2016 12: 00 AM PHOTOGRAPHER MODEL CARDIOLOGY REPORT 08/29/2016 12: 00 AM PHOTOGRAPHER MODEL documented in this encounter Results * CARDIOLOGY REPORT (09/04/2016 12:00 AM PHOTOGRAPHER MODEL) Anatomical Region Laterality Modality Other Narrative 09/04/2016 12:00 AM PHOTOGRAPHER MODEL Ordered by an unspecified provider. us Historical Provider CV CARDIAC SERVICES PROCE DURES Final Result * CARDIOLOGY REPORT (08/29/2016 12:00 AM PHOTOGRAPHER MODEL) Anatomical Region Laterality Modality Other Narrative 08/29/2016 12:00 AM PHOTOGRAPHER MODEL Ordered by an unspecified provider. us Historical Provider CV CARDIAC SERVICES PROCE DURES Final Result documented in this encounter Visit Diagnoses Not on filedocumented in this encounter Additional Health Concerns Infection Onset Date Last Indicated Resolved Time COVID: Suspected 09/13/2021 09/13/2021 09/14/2021 12:34 AM PHOTOGRAPHER MODEL COVID: Suspected 05/25/2024 05/25/2024 05/25/2024 9:56 AM CDT documented as of this encounter Care Teams Nursing Specialist Relationship Specialty Start Date End Date Brielle Mack MD PCP - General 10/23/17 06/28/20 Amarilsi Mcfarlane MD [address] [place], [place] [address] PCP - General Family Medicine 06/29/20 Bayron Barclay DO [address] [place] [address] MEDICAL ONCOLOGY, [facility] [address] [place], [place] [id number] Medical Oncologist/Shaper Machine Hand Hematology and Oncology 04/28/23 Christine Katz PA [address] [place], [place] [address] Physician Rivet Passer Family Medicine 03/03/25 documented as of this encounter
--- OUTSIDE RECORDS SUMMARY | 2025-03-25 17:02 | XMS_ITS | Clinical Summary ---
Author Organization [facility] Care Team Providers Care Roller Checker Name Role Phone Unavailable Primary Care Provider Unavailabl e Social History Tobacco Use Types Packs/Day Years Used Date Smoking Tobacco: Never Assessed Comments Unknown Sex and Gender Information Value Date Recorded Sex Assigned at Not on file Legal Sex Female 8:12 AM OXYGEN EQUIPMENT AIDE Gender Identity Not on file Sexual Orientation [...]
--- OUTSIDE RECORDS SUMMARY | 2025-03-25 17:02 | XMS_ITS | Encounter Summary ---
Author Organization [facility] Facility Care Team Providers Care Director Internal Control Name Role Phone Brielle Mack MD Primary Care Provider Amarilis Mcfarlane MD Primary Care Provi julito Bayron Barclay DO Unavailable [phone] Christine Katz Unavailable Encounter Details Date Type Department Care Team (Latest Contact Info) Description 12/01/2017 Orders Only MMG CLINCONV Provider, MD Ivonne [address] [place] [address] Social History Tobacco Use Types Packs/Day Years Used Date Smoking Tobacco: Never Assessed Comments Unknown Sex and Gender Information Value Date Recorded Sex Assigned at Not on file Legal Sex Female 7:51 AM ANALYTICS ARCHITECT Gender Identity Female 06/06/2023 10:34 AM [...] COVID: Suspected 09/13/2021 09/13/2021 09/14/2021 12:34 AM ANALYTICS ARCHITECT COVID: Suspected 05/25/2024 05/25/2024 05/25/2024 9:56 AM CDT documented as of this encounter Care Teams Director Internal Control Relationship Specialty Start Date End Date Brielle Mack MD PCP - General 10/23/17 06/28/20 Amarilis Mcfarlane MD [address] [place], [place] [phone] PCP - General Family Medicine 06/29/20 Bayron Barclay DO [address] [place] [address] MEDICAL ONCOLOGY, [facility] [address] [place], [place] [phone] Medical Oncologist/Internal Grinding Machine Operator Hematology and Oncology 04/28/23 Christine Katz PA [address] [place], [place] [phone] Physician Senior Ruby Developer Family Medicine 03/03/25 documented as of this encounter
--- OUTSIDE RECORDS SUMMARY | 2025-03-25 17:02 | XMS_ITS | Encounter Summary ---
Author Organization [facility] Facility Care Team Providers Care Bilingual Recruiter Name Role Phone Brielle Mack MD Primary Care Provider Amarilis Mcfarlane MD Primary Care Provi julito Bayron Barclay DO Unavailable [phone] Christine Katz Unavailable Encounter Details Date Type Department Care Team (Latest Contact Info) Description 11/11/2016 Orders Only [facility]G CLINCONV Provider, MD Ivonne [address] [place] [address] Social History Tobacco Use Types Packs/Day Years Used Date Smoking Tobacco: Never Assessed Comments Unknown Sex and Gender Information Value Date Recorded Sex Assigned at Not on file Legal Sex Female 7:51 AM QUAL FIELD MANAGER Gender Identity Female 06/06/2023 10:34 AM CDT Sexual Orientation Straight 06/06/2023 10 :34 AM CDT documented as of this encounter Plan of Treatment Not on file documented as of this encounter Procedures Procedure Name Priority Date/Time Associated Diagnosis Comments CARDIOLOGY REPORT 11/13/2016 12: 00 AM QUAL FIELD MANAGER documented in this encounter Results * CARDIOLOGY REPORT (11/13/2016 12:00 AM QUAL FIELD MANAGER) Anatomical Region Laterality Modality Other Narrative 11/13/2016 12:00 AM QUAL FIELD MANAGER Ordered by an unspecified provider. us Historical Provider [facility] CARDIAC SERVICES YAMILET ZHANG Final Result documented in this encounter Visit Diagnoses Not on filedocumented in this encounter Additional Health Concerns Infection Onset Date Last Indicated Resolved Time COVID: Suspected 09/13/2021 09/13/2021 09/14/2021 12:34 AM QUAL FIELD MANAGER COVID: Suspected 05/25/2024 05/25/2024 05/25/2024 9:56 AM CDT documented as of this encounter Care Teams Bilingual Recruiter Relationship Specialty Start Date End Date Brielle Mack MD PCP - General 10/23/17 06/28/20 Amarilis Mcfarlane MD [address] [place], [place] [phone] PCP - General Family Medicine 06/29/20 Bayron Barclay DO [address] [place] [address] MEDICAL ONCOLOGY, [address] [id number] Medical Oncologist/Atomic Physics Teacher Hematology and Oncology 04/28/23 Christine Katz PA [address] [place], [place] [phone] Physician Manager Of Planning Family Medicine 03/03/25 documented as of this encounter
--- OUTSIDE RECORDS SUMMARY | 2025-03-25 17:02 | XMS_ITS | Encounter Summary ---
Author Organization [facility] Healthcare Address [address] [place] [address] Care Team Providers Care Chief Juvenile Probation Officer Name Role Phone Amarilis Mcfarlane MD Primary Care Provi julito Bayron Barclay DO Unavailable [phone] Christine Katz Unavailable Encounter Details Date Type Department Care Team (Late st Contact Info) Description 03/18/2025 Results Follow-Up [facility] Family Medicine [address] [address] Amarilis Mcfarlane MD [address] [address] Thyroid Function [place] Social History Tobacco Use Types Packs/Day Years Used Date Smoking Tobacco: Never Smokeless Tobacco: Never Alcohol Use Standard Drinks/Week Comments No 0 (1 standard drink = 0.6 oz pur e alcohol) AUDIT-C Answer Date Recorded Q1: How often do you have a drink containing alcohol? Never 03/03/2025 Q2: How many drinks containi ng alcohol do you have on a typical day when you are drinking? Patient does not drink Q3: How often do you have si x or more drinks on one occasion? Never 03/03/2025 PHQ-2 Answer Date Recorded PHQ-2 Total Score (If total score is 3 or more points, staff should administer the PHQ-9) 0 03/03/2025 PHQ-9 Answer Date Recorded PHQ-9 Total Score 3 07/22/2024 Comments No Sex and Gender Information Value Date Recorded Sex Assigned at Not on file Legal Sex Female 7:51 AM BUTTER FAT TESTER Gender Identity Female 06/06/2023 10:34 AM CDT Sexual Orientation Straight 06/06/2023 10 :34 AM CDT documented as of this encounter Plan of Treatment Not on file documented as of this encounter Visit Diagnoses Not on filedocumented in this encounter Care Teams Chief Juvenile Probation Officer Relationship Specialty Start Date End Date Amarilis Mcfarlane MD [address] [place] [address] PCP - General Family Medicine 06/29/20 Bayron Barclay DO [facility] MEDICAL ONCOLOGY, [facility] [address] [place], [place] [address] Medical Oncologist/Wardrobe Coordinator Hematology and Oncology 04/28/23 Christine Katz PA [address] [place] [address] Physician Curtain Cutter Hand Family Medicine 03/03/25 documented as of this encounter
--- OUTSIDE RECORDS SUMMARY | 2025-03-25 17:02 | XMS_ITS | Encounter Summary ---
Author Organization [facility] Healthcare Address [address] [place] [address] Care Team Providers Care It Trainee Name Role Phone Amarilis Mcfarlane MD Primary Care Provi julito Bayron Barclay DO Unavailable [phone] Christine Katz Unavailable Encounter Details Date Type Department Care Team (Late st Contact Info) Description 01/25/2025 Results Follow-Up [facility] Family Medicine [address] [address] Amarilis Mcfarlane MD [address] [address] Thyroid Function [place] Social History Tobacco Use Types Packs/Day Years [...] on file Legal Sex Female 7:51 AM SETTER UP Gender Identity Female 06/06/2023 10:34 AM CDT Sexual Orientation Straight 06/06/2023 10 :34 AM CDT documented as of this encounter Plan of Treatment Not on file documented as of this encounter Visit Diagnoses Not on filedocumented in this encounter Care Teams It Trainee Relationship Specialty Start Date End Date Amarilis Mcfarlane MD [address] [place] [address] PCP - General Family Medicine 06/29/20 Bayron Barclay DO [facility] MEDICAL ONCOLOGY, [facility] [address] [place], [place] [address] Medical Oncologist/Large Engine Assembler Hematology and Oncology 04/28/23 Christine Katz PA [address] [place] [address] Physician Accounting Methods Analyst Family Medicine 03/03/25 documented as of this encounter
--- OUTSIDE RECORDS SUMMARY | 2025-03-25 17:02 | XMS_ITS | Encounter Summary ---
Author Organization [facility] Facility Care Team Providers Care Service Mechanic Name Role Phone Brielle Mack MD Primary Care Provider Amarilis Mcfarlane MD Primary Care Provi julito Bayron Barclay DO Unavailable [phone] Christine Katz Unavailable Encounter Details Date Type Department Care Team (Latest Contact Info) Description 05/27/2016 Orders Only [facility]G CLINCONV Provider, MD Ivonne [address] [place] [address] Social History Tobacco Use Types Packs/Day Years Used Date Smoking Tobacco: Never Assessed Comments Unknown Sex and Gender Information Value Date Recorded Sex Assigned at Not on file Legal Sex Female 7:51 AM BILINGUAL INTERPRETER Gender Identity Female 06/06/2023 10:34 AM CDT [...] COVID: Suspected 09/13/2021 09/13/2021 09/14/2021 12:34 AM BILINGUAL INTERPRETER COVID: Suspected 05/25/2024 05/25/2024 05/25/2024 9:56 AM CDT documented as of this encounter Care Teams Service Mechanic Relationship Specialty Start Date End Date Brielle Mack MD PCP - General 10/23/17 06/28/20 Amarilis Mcfarlane MD [address] [place], [place] [address] PCP - General Family Medicine 06/29/20 Bayron Barclay DO [address] [place] [address] MEDICAL ONCOLOGY, [facility] [address] [place], [place] [address] Medical Oncologist/Bale Tie Machine Operator Hematology and Oncology 04/28/23 Christine Katz PA [address] [place], [place] [address] Physician Robotic Maintenance Technician Family Medicine 03/03/25 documented as of this encounter
--- OUTSIDE RECORDS SUMMARY | 2025-03-25 17:02 | XMS_ITS | Encounter Summary ---
Author Organization [facility] Healthcare Address [address] [place] [address] Care Team Providers Care Mechanical Design Drafter Name Role Phone Amarilis Mcfarlane MD Primary Care Provi julito Bayron Barclay DO Unavailable [phone] Christine Katz Unavailable Reason for Visit * Reason Onset Date Comments Med Management 03/24/2025 Encounter Details Date Type Department Care Team (Late st Contact Info) Description 03/24/2025 Telephone [facility] [address] [address] Candi Le MD [address] [place] [address] Med Management Social History Tobacco Use Types Packs/Day Years [...] on file Legal Sex Female 7:51 AM CLOTH HANDLER Gender Identity Female 06/06/2023 10:34 AM CDT Sexual Orientation Straight 06/06/2023 10 :34 AM CDT documented as of this encounter Miscellaneous Notes * Telephone Encounter - Talita Preciado MA - 03/24/2025 1:37 PM CDT OUTGOING CALL: RODNEY: 03/22/25 NOV: 06/21/25 Call To: Yasmine Menjivar [phone] Call Reason: Called related message per Dr. Le Patient understood message documented in this encounter Plan of Treatment Not on file documented as of this encounter Visit Diagnoses Not on filedocumented in this encounter Care Teams Mechanical Design Drafter Relationship Specialty Start Date End Date Amarilis Mcfarlane MD [address] [place] [address] PCP - General Family Medicine 06/29/20 Bayron Barclay DO [address] [place] [address] MEDICAL ONCOLOGY, [facility] [address] [place], [place] [phone] Medical Oncologist/Outreach Worker Hematology and Oncology 04/28/23 Christine Katz PA [address] [place], [place] [address] Physician Fur Drummer Family Medicine 03/03/25 documented as of this encounter
--- OUTSIDE RECORDS SUMMARY | 2025-03-25 17:02 | XMS_ITS | Encounter Summary ---
Author Organization [facility] Facility Care Team Providers Care Ice Cream Van Vendor Name Role Phone Brielle Mack MD Primary Care Provider [phone] Amarilis Mcfarlane MD Primary Care Provi julito Bayron Barclay DO Unavailable [phone] Christine Katz Unavailable Encounter Details Date Type Department Care Team (Latest Contact Info) Description 07/02/2017 Orders Only MMG CLINCONV Provider, MD Ivonne [address] [place] [address] Social History Tobacco Use Types Packs/Day Years Used Date Smoking Tobacco: Never Assessed Comments Unknown Sex and Gender Information Value Date Recorded Sex Assigned at Not on file Legal Sex Female 7:51 AM JET DYEING MACHINE TENDER Gender Identity Female 06/06/2023 10:34 AM CDT [...] COVID: Suspected 09/13/2021 09/13/2021 09/14/2021 12:34 AM JET DYEING MACHINE TENDER COVID: Suspected 05/25/2024 05/25/2024 05/25/2024 9:56 AM CDT documented as of this encounter Care Teams Ice Cream Van Vendor Relationship Specialty Start Date End Date Brielle Mack MD PCP - General 10/23/17 06/28/20 Amarilis Mcfarlane MD [address] [place], [place] [phone] PCP - General Family Medicine 06/29/20 Bayron Barclay DO [address] [place] [address] MEDICAL ONCOLOGY, [facility] [address] [place], [place] [phone] Medical Oncologist/Multiple Effect Evaporator Operator Hematology and Oncology 04/28/23 Christine Katz PA [address] [place], [place] [phone] Physician Fret Saw Operator Family Medicine 03/03/25 documented as of this encounter
--- OUTSIDE RECORDS SUMMARY | 2025-03-25 17:02 | XMS_ITS | Encounter Summary ---
Author Organization [facility] Facility Care Team Providers Care Dope Sprayer Name Role Phone Brielle Mack MD Primary Care Provider Amarilis Mcfarlane MD Primary Care Provi julito Bayron Barclay DO Unavailable [phone] Christine Katz Unavailable Encounter Details Date Type Department Care Team (Latest Contact Info) Description 02/29/2016 Orders Only MMG CLINCONV Provider, MD Ivonne [address] [place] [address] Social History Tobacco Use Types Packs/Day Years Used Date Smoking Tobacco: Never Assessed Comments Unknown Sex and Gender Information Value Date Recorded Sex Assigned at Not on file Legal Sex Female 7:51 AM LOCOMOTIVE OBSERVER Gender Identity Female 06/06/2023 10:34 AM CDT [...] COVID: Suspected 09/13/2021 09/13/2021 09/14/2021 12:34 AM LOCOMOTIVE OBSERVER COVID: Suspected 05/25/2024 05/25/2024 05/25/2024 9:56 AM CDT documented as of this encounter Care Teams Dope Sprayer Relationship Specialty Start Date End Date Brielle Mack MD PCP - General 10/23/17 06/28/20 Amarilis Mcfarlane MD [address] [place], [place] [address] PCP - General Family Medicine 06/29/20 Bayron Barclay DO [address] [place] [address] MEDICAL ONCOLOGY, [facility] [address] [place], [place] [address] Medical Oncologist/Tucking Machine Operator Hematology and Oncology 04/28/23 Christine Katz PA [address] [place], [place] [address] Physician Receiving Teller Family Medicine 03/03/25 documented as of this encounter
--- OUTSIDE RECORDS SUMMARY | 2025-03-25 17:02 | XMS_ITS | Referral Summary ---
Author Organization [facility] Address [address] [place] [address] Care Team Providers Care Sales And Marketing Intern Name Role Phone Amarilis Mcfarlane MD Primary Care Provi julito Bayron Barclay DO Unavailable [phone] Christine Katz PA Unavailable Encounters Date Type Department Care Team Description 03/24/[address] [facility] [address] [address] Candi Le MD Med Management 03/22/2025 8:00 AM CDT Office Visit [facility] [address] [address] Candi Le MD Postoperative hypothyroidism; History of thyroid cancer 03/18/2025 Results Follow-Up [facility] [address] [place] [phone] Amarilis Mcfarlane MD Thyroid Function Otero 03/15/2025 Orders Only [facility] [address] [place] [phone] Amarilis Mcfarlane MD Postoperative hypothyroidism 03/15/2025 Telephone [facility] Medicine [address] [place] [phone] Amarilis Mcfarlane MD Labs Only 03/03/2025 Results Follow-Up [address] [phone] Christine Katz PA Magnesium, Basic metabolic panel, eGFR 03/03/2025 9:35 AM CDT Lab [facility] [address] [place] [address] Palpitation 03/03/2025 9:00 AM CDT Office Visit [address] [phone] Christine Katz PA Postoperative hypothyroidism (Primary Dx); History of thyroid cancer; Palpitation 02/24/2025 Results Follow-Up [address] [phone] Christine Katz PA Thyroid Function Otero 01/28/2025 Orders Only [address] [phone] Amarilis Mcfarlane MD Acute cystitis with hematuria (Primary Dx); Postoperative hypothyroidism 01/25/2025 Results Follow-Up [address] [phone] Amarilis Mcfarlane MD Thyroid Function Otero 01/03/2025 Results Follow-Up [address] [phone] Amarilis Mcfarlane MD Thyroglobulin antibodies 12/31/2024 Orders Only [address] [phone] Amarilis Mcfarlane MD History of thyroid cancer 12/29/2024 Results Follow-Up [address] [phone] Amarilis Mcfarlane MD MAMMOGRAPHY 12/27/2024 Orders Only [facility] [address] [phone] Amarilis Mcfarlane MD Primary hypertension from Last 3 Months Allergies Active Allergy [...] (10 mg total) by mouth 023 Active cloNIDine (CATAPRES) 0.1 mg tabletIndications :Elevated blood pressure reading TAKE 1 TABLET(0.1 MG) BY MOUTH DAILY NEEDED FOR HIGH BLOOD PRESSURE 15 tablet 025 Active meclizine (ANTIVERT) 25 mg tablet TAKE 1 TABLET(25 MG) BY MOUTH THREE TIMES DAILY NEEDED FOR DIZZINESS 30 tablet 025 Active omeprazole (PriLOSEC) 20 mg capsuleIndication s:Gastroesophagea l reflux disease without esophagitis Take 1 capsule (20 mg total) by mouth daily as needed (heartburn) 025 Active Additional Information Patient not taking.Reported on 03/03/2025 famotidine (PEPCID) 20 mg tablet Take 1 tablet (20 mg total) by mouth 2 (two) times a day as needed for heartburn Active losartan (COZAAR) 100 mg tabletIndications :Primary hypertension Take 1 tablet (100 mg total) by mouth daily 90 tablet 2 025 Active levothyroxine (Synthroid) 88 mcg tabletIndications :Postoperative hypothyroidism Take 1 tablet (88 mcg total) by mouth unix administrator before breakfast 90 tablet 1 025 Active potassium chloride ER 10 mEq CR tabletIndications :ICD (implantable cardioverter-defi brillator) in place TAKE 1 CAPSULE(10 MEQ) BY MOUTH TWICE DAILY 200 tablet/caps ule 1 025 Active potassium chloride ER 10 mEq CR tabletIndications :ICD (implantable cardioverter-defi brillator) in place Take 1 tablet/capsule (10 mEq total) by mouth daily 90 tablet/caps ule 1 024 2024 Discontinued Active Problems Problem Noted Date Diagnosed Date [...] 1 tablet (125 mcg total) by mouth unix administrator before breakfast Thyroid Function Otero; Future Erythrocyte sedimentation rate; Future Comprehensive metabolic panel; Future BMI 28.0-28.9,adult 10/04/2024 Assessment & Plan (10/04/2024 2:48 PM GERIATRIC PHYSICIAN): BMI Follow-up includes: education provided. Pericardial effusion [...] Future Postoperative hypothyroidism 01/01/2024 Assessment & Plan (03/25/2025 2:22 PM CDT): Her labs were reviewed with the patient last TSH was 3.69 which is above target, currently patient takes Synthroid 88 mcg daily, we will change Synthroid dose to 88 mcg daily and on Friday she will take 1-1/2 tablet, we will get TSH with reflex free T4 in 6 weeks[address] of taking Synthroid, and how to make up for missed Synthroid was discussed. Any supplement that has iron or calcium in it should be at least 4 hours apart from Synthroid Orders: Ambulatory referral to Endocrinology Assessment & Plan (03/03/2025 9:16 AM CDT): Orders: Ambulatory referral to Endocrinology; Future Assessment & Plan (12/21/2024 12:26 PM CDT): Assessment & Plan (12/08/2024 3:09 PM CDT): Orders: Thyroid Function Otero; Future Assessment & Plan (11/25/2024 11:51 AM CDT): Orders: Synthroid 125 mcg tablet; Take 1 tablet (125 mcg total) by mouth unix administrator before breakfast Thyroid Function Otero; Future Erythrocyte sedimentation rate; Future Comprehensive metabolic panel; Future Assessment & Plan (10/04/2024 2:50 PM GERIATRIC PHYSICIAN): Chronic. Elevated mildly at last 2 lab checks. - Increase levothyroxine from 100-112 mcg daily - Repeat labs in 6 weeks Tingling in extremities 01/01/2024 Bilateral carpal tunnel syndrome 01/01/2024 Sphincter of Oddi dysfunction 07/22/2023 Overview (07/22/2024): Followed by GI Primary hypertension 05/26/2023 Assessment & Plan (12/08/2024 3:09 PM CDT): Assessment & Plan (10/04/2024 2:52 PM GERIATRIC PHYSICIAN): Chronic. Mostly controlled. Patient's average readings from [...] week. Assessment & Plan (07/22/2023 3:39 PM GERIATRIC PHYSICIAN): Chronic, stabe Continue current regimen Assessment & Plan (06/10/2023 11:28 AM CDT): Chronic, improved Continue losartan Continue clonidine only if needed Continue to follow with Cardiology Update me with any changes Call for questions Low bone mass 05/30/2022 Assessment & Plan (10/04/2024 2:49 PM GERIATRIC PHYSICIAN): Chronic. Discussed recommendation for 500 mg of calcium daily or 3 servings of calcium in diet daily. Discussed recommendation for vitamin-D 5665-1967 international units daily. She may try to get this all from a multivitamin. Assessment & Plan (07/22/2023 3:39 PM GERIATRIC PHYSICIAN): Chronic, stable Continue vitamin d Follow up testing ordered Assessment & Plan (05/30/2022 10:13 AM CDT): Continue vitamin d, calcium Strength training, walking H/O cardiac arrest 11/13/2021 Assessment & Plan (07/22/2023 3:37 PM GERIATRIC PHYSICIAN): Chronic, stable Managed by cardiology Update me with any changes or concerns Assessment & Plan (05/30/2022 10:11 AM CDT): Following with cardiology Other headache syndrome 10/31/2021 Assessment & Plan (07/22/2023 3:39 PM GERIATRIC PHYSICIAN): Acute, resolved Continue to monitor Update me if anything changes or worsens Assessment & Plan (05/30/2022 10:14 AM CDT): Occasional headaches Keep track of headaches Avoid triggers Update me if her symptoms change or worsen Assessment & Plan (10/31/2021 1:02 PM GERIATRIC PHYSICIAN): Differential migraine versus cluster versus other With [...] 05/11/2021 Assessment & Plan (07/22/2023 3:40 PM GERIATRIC PHYSICIAN): Chronic, stable Managed by cardiology S/p ICD placement Assessment & Plan (05/30/2022 10:13 AM CDT): S/p pacemaker Continue to follow with cardiology PVC's (premature ventricular contractions) 05/11 Assessment & Plan (07/22/2023 3:40 PM GERIATRIC PHYSICIAN): Chronic, stable Managed by cardiology Update me with any changes or concerns Assessment & Plan (05/30/2022 10:13 AM CDT): S/p pacemaker Continue to follow with cardiology Nonsustained ventricular tachycardia 05/11/2021 Assessment & Plan (07/22/2023 3:39 PM GERIATRIC PHYSICIAN): Chronic, stable Managed by cardiology S/p ICD placement Assessment & Plan (05/30/2022 10:13 AM CDT): S/p pacemaker Continue to follow with cardiology Family history of heart disease 05/11/2021 Assessment & Plan (07/22/2023 3:29 PM GERIATRIC PHYSICIAN): Chronic, stable Managed by cardiology Continue current regimen Assessment & Plan (05/30/2022 10:10 AM CDT): Chronic, stable Continue to follow with cardiology Encounter for Medicare annual wellness exam 04/08 Overview (07/22/2024): Encouraged healthy diet and activity Please look into a power of document review attorney or living will Health Maintenance: Last mammogram:07/31, 08/01- WNL Last DEXA: 01/27- Low bone mass-ordered Last colonoscopy: 06/28-repeat in 10 years Last Tdap: encouraged Last pneumonia: up to date Last Shingrix: reviewed Last Flu: reviewed Last COVID: reviewed Assessment & Plan (07/22/2024 8:04 AM GERIATRIC PHYSICIAN): Encouraged healthy diet and activity Please look into a power of document review attorney or living will Health Maintenance: Last mammogram:07/31, 08/01- WNL Last DEXA: 01/27- Low bone mass-ordered Last colonoscopy: 06/28-repeat in 10 years Last Tdap: encouraged Last pneumonia: up to date Last Shingrix: reviewed Last Flu: reviewed Last COVID: reviewed Assessment & Plan (07/22/2023 3:28 PM GERIATRIC PHYSICIAN): Encouraged healthy diet and activity Please look into a power of document review attorney or living will Health Maintenance: Last mammogram:07/31- WNL Last DEXA: 01/27- Low bone mass Last colonoscopy: 06/28-repeat in 10 years Last Tdap: encouraged Last pneumonia: up to date Last Shingrix: reviewed Last Flu: reviewed Last COVID: reviewed Assessment & Plan (05/30/2022 10:09 AM CDT): Encouraged healthy diet and activity Please look into a power of document review attorney or living will Health Maintenance: Last mammogram:scheduled Last DEXA: 2020- Low bone mass Last colonoscopy: 06/28-repeat in 10 years Last Tdap: encouraged Last pneumonia: due second one Last Shingrix: reviewed Last Flu: reviewed Last COVID: reviewed Assessment & Plan (04/25/2021 2:08 PM CDT): Encouraged healthy diet and activity Please look into a power of document review attorney or living will Wear sun screen, [...] (heartburn) Assessment & Plan (07/22/2023 3:36 PM GERIATRIC PHYSICIAN): Chronic, stable Continue prilosec for now Consider [...] untreated Assessment & Plan (10/31/2021 1:01 PM GERIATRIC PHYSICIAN): With esophagitis and gastritis on her CT scan Continue Prilosec b.i.d. 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 tail sawyer Update me after the visit Assessment & Plan (04/25/2021 12:16 PM CDT): Continue omeprazole Reviewed the risk and benefits of medication Grief 08/01/2020 Assessment & Plan (07/22/2023 3:37 PM GERIATRIC PHYSICIAN): Chronic, stable Continue supportive care Assessment & Plan (05/30/2022 10:11 AM CDT): Improved, doing well with supportive care Assessment & Plan (04/25/2021 12:15 PM CDT): Patient with a significant amount of loss over the last year Continue supportive care Update me if her mood worsens or changes Assessment & Plan (08/01/2020 1:22 PM GERIATRIC PHYSICIAN): Some of her symptoms may be related [...] Future Assessment & Plan (07/22/2023 3:38 PM GERIATRIC PHYSICIAN): Chronic, stable Managed by cardiology Assessment & [...] of thyroid cancer 06/17/2015 Assessment & Plan (03/25/2025 2:22 PM CDT): History of thyroid cancer in 2014 status post total thyroidectomy, pathology report is not available, no history of radioactive iodine. Initially patient has positive thyroglobulin and TPO antibodies however according to last labs TPO antibodies were undetectable, and thyroglobulin antibodies was 1, which indicates biochemical remission, Thyroid ultrasound in April 2024 did not show any recurrence. So far according to available data clinically and biochemically patient is in remission. We will get thyroglobulin, thyroglobulin antibodies along with next TSH. She is supposed to get thyroid ultrasound through her cancer care's physician's office. Patient had multiple questions regarding her labs all questions were answered. Orders: Ambulatory referral to Endocrinology Thyroid Function Otero; Future Thyroglobulin antibodies; Future Assessment & Plan (03/03/2025 9:16 AM CDT): Orders: Ambulatory referral to Endocrinology; Future Assessment & Plan (12/21/2024 12:26 PM CDT): Assessment & Plan (07/22/2023 3:38 PM GERIATRIC PHYSICIAN): Chronic, stable Managed by oncology Continue to monitor Assessment & Plan (05/30/2022 10:12 AM CDT): Chronic, stable Follows with oncology Continue synthroid Assessment & Plan (04/25/2021 2:10 PM CDT): Continue levothyroxine at current dose Continue to follow with Dr Barclay Resolved Problems Problem Noted Date Diagnosed Date Resolved Date Hypokalemia 06/02/2023 07/22/2024 Assessment & Plan (07/22/2023 3:38 PM GERIATRIC PHYSICIAN): Chronic,s table Continue replacement History of torsades de pointes 05/08/2021 07/22/2024 Assessment & Plan (07/22/2023 3:38 PM GERIATRIC PHYSICIAN): Chronic, stable Managed by cardiology S/p pacemaker Assessment & Plan (05/30/2022 10:12 AM CDT): S/p pacemaker Continue to follow with cardiology Allergic rhinitis 04/25/2021 07/22/2024 Assessment & Plan (07/22/2023 3:29 PM GERIATRIC PHYSICIAN): Chronic, stable Asymptomatic Continue to monitor Assessment & Plan (05/30/2022 10:09 AM CDT): Chronic, stable Assessment & Plan (04/25/2021 2:11 PM CDT): Continue flonase Thyroid cancer ([facility]) 04/17/2018 Cardiac arrest 05/27/2016 11/13/2021 Assessment & [...] on file Legal Sex Female 7:51 AM GERIATRIC PHYSICIAN Gender Identity Female 06/06/2023 10:34 AM CDT Sexual Orientation Straight 06/06/2023 10 :34 AM CDT Last Filed Vital Signs Vital Sign Reading Time Taken Comments Blood Pressure 118/68 03/22/2025 8:06 AM CDT Pulse 89 03/22/2025 8:06 AM CDT Temperature 37.2 C (99 F) 03/22/2025 8:06 AM CDT Respiratory Rate 16 03/03/2025 8:42 AM CDT Oxygen Saturation 98% 03/03/2025 8:42 AM CDT Inhaled Oxygen Concentration - - Weight 75.3 kg (166 lb) 03/22/2025 8:06 AM CDT Height 165.1 cm (5' 5) 03/22/2025 8:06 AM CDT Body Mass Index 27.62 03/22/2025 8:06 AM CDT Plan of Treatment Not on file Procedures Procedure Name Priority Date/Time Associated Diagnosis Comments THYROID FUNCTION CASCADE Routine 03/17/2025 8:29 AM CDT Postoperative hypothyroidism CREATINE KINASE (CK), TOTAL Routine 03/03/2025 9:40 AM CDT Palpitation AST Routine 03/03/2025 9:40 AM CDT Palpitation ALT Routine 03/03/2025 9:40 AM CDT Palpitation EGFR Routine 03/03/2025 9:40 AM CDT Palpitation BASIC METABOLIC PANEL Routine 03/03/2025 9:40 AM CDT Palpitation MAGNESIUM Routine 03/03/2025 9:40 AM CDT Palpitation THYROID FUNCTION CASCADE Routine 02/23/2025 7:53 AM CDT Postoperative hypothyroidism T4, FREE Routine 01/24/2025 10:05 AM CDT THYROID FUNCTION CASCADE Routine 01/24/2025 10:05 AM CDT History of thyroid cancer THYROGLOBULIN ANTIBODIES Routine 12/31/2024 9:15 AM CDT History of thyroid cancer HM MAMMOGRAPHY Routine 12/27/2024 1:02 PM CDT HEPATITIS C ANTIBODY Routine 06/04/2022 9:22 AM CDT Need for hepatitis C screening test DEXA AXIAL SKELETON BONE DENSITY 1 OR MORE SITES Schedule Routine, Read Routine (OP Routine) 01/31/2022 9:03 AM CDT Postmenopausal status COLONOSCOPY Routine 06/27/2021 from Last 3 Months or Most Recently Relevant to Health Maintenance Results * Thyroid Function Otero (03/17/2025 8:29 AM CDT) TSH 3.69 0.40 - 4.50 mIU/L [facility] Blood 03/17/2025 8:29 AM CDT 03/17/2025 8:30 AM CDT us Amarilis Mcfarlane MD LAB BLOOD ORDERABLE S Final Result Performing Organization Address City/[facility]/ZIP Co de Phone Number [facility] [address] [place] [address] * (ABNORMAL) eGFR (03/03/2025 9:40 AM CDT) eGFR 56(L) >=60 mL/min/1. 73 m2 Comment: Interpretive Data [...] was last reviewed 2021. Testing performed by: [facility], [address] [place] [address]., [id number] Blood 03/03/2025 9:40 AM CDT 03/03/2025 10:09 AM CDT us Christine PIZARRO LAB BLOOD ORDERABLES Final Resul t SHARON [address] [facility] Department [place] [address] * ALT (03/03/2025 9:40 AM CDT) ALT 10 7 - 45 Units/L Comment:Testing performed by : [address] [address] Blood 03/03/2025 9:40 AM CDT 03/03/2025 10:09 AM CDT us Amarilis Mcfarlane MD LAB BLOOD ORDERABLE S Final Result Performing Organization Address City/[facility]/ZIP Co de Phone Number [address] [address] * AST (03/03/2025 9:40 AM CDT) Pathologist [facility] AST 16 10 - 45 Units/L Comment:Testing performed by : [address] [address] Blood 03/03/2025 9:40 AM CDT 03/03/2025 10:09 AM CDT us Amarilis Mcfarlane MD LAB BLOOD ORDERABLE S Final Result Performing Organization Address [facility] Co de Phone Number [address] [address] * Magnesium (03/03/2025 9:40 AM CDT) [facility] Magnesium 2.2 1.4 - 2.5 mg/dL Comment:Testing performed by : [address] [address] Blood 03/03/2025 9:40 AM CDT 03/03/2025 10:09 AM CDT us Christine PIZARRO LAB BLOOD ORDERABLES Final Resul t Performing Organization Address City/[facility] Co de Phone Number [address] [place] [address] * Creatine kinase (CK), total (03/03/2025 9:40 AM CDT) Pathologist [facility] CK 132 30 - 200 Units/L Comment:Testing performed by : [address] [address] Blood 03/03/2025 9:40 AM CDT 03/03/2025 10:09 AM CDT us Amarilis Mcfarlane MD LAB BLOOD ORDERABLE S Final Result [facility] [address] [facility] Department [place] [address] * (ABNORMAL) Basic metabolic panel (03/03/2025 9:40 AM CDT) Pathologist [facility] Sodium 143 135 - 145 mmol/L Comment:Testing performed by : [address] [address] Potassium, pl 4.3 3.3 - 4.9 mmol/L SHARON Comment:Testing performed by : [address] [address] Chloride 105 97 - 110 mmol/L SH[facility]ON Comment:Testing performed by : [address] [address] CO2 28 22 - 32 mmol/L SHARON Comment:Testing performed by : [address] [address] Anion gap 10 2 - 15 mmol/L SHARON Comment:Testing performed by : [address] [address] BUN 19 6 - 25 mg/dL SHARON Comment:Testing performed by : [address] [address] Creatinine 1.08 0.60 - 1.10 mg/dL SHARON Comment:Testing performed by : [address] [address] Glucose 67(L) 70 - 199 mg/dL SHARON Comment: Interpretive [...] was last revised 2022. Testing performed by: [facility], [address] [place] [address]., [address] Calcium 9.1 8.5 - 10.3 mg/dL SHARON Comment:Testing performed by : [facility], [address] [place] [address]., [address] Blood 03/03/2025 9:40 AM CDT 03/03/2025 10:09 AM CDT us Christine PIZARRO LAB BLOOD ORDERABLES Final Resul t Performing Organization Address City/[facility]/ZIP Co de Phone Number SH[facility] [address] [facility] [place] [address] * Thyroid Function Otero (02/23/2025 7:53 AM CDT) TSH 2.25 0.40 - 4.50 mIU/L [facility] Blood 02/23/2025 7:53 AM CDT 02/23/2025 7:53 AM CDT us Amarilis Mcfarlane MD LAB BLOOD ORDERABLE S Final Result [facility] [facility] [address] [place] [address] * (ABNORMAL) Thyroid Function Otero (01/24/2025 10:05 AM CDT) TSH 0.39(L) 0.40 - 4.50 mIU/L [facility] Blood 01/24/2025 10:0 5 AM CDT 01/24/2025 10:05 AM CDT Christine PIZARRO LAB BLOOD ORDERABLES Final Resul t Performing Organization Address [facility] de Phone Number [facility] [facility] [address] [place] [address] * T4, free (01/24/2025 10:05 AM CDT) Free T4 1.7 0.8 - 1.8 ng/dL [facility] 01/24/2025 10:0 5 AM CDT 01/24/2025 10:05 AM CDT Christine PIZARRO LAB BLOOD ORDERABLES Final Resul t Performing Organization Address [facility] de Phone Number [facility] [facility] [address] [place] [address] * Thyroglobulin antibodies (12/31/2024 9:15 AM CDT) Pathologist [facility] Thyroglobulin ab 1 < or = 1 IU/mL [facility] Blood 12/31/2024 9:15 AM CDT 12/31/2024 9:15 AM CDT Amarilis Mcfarlane MD LAB BLOOD ORDERABLE S Final Result Performing Organization Address [facility] de Phone Number [facility] [address] [place] [address] * HM MAMMOGRAPHY (12/27/2024 1:02 PM CDT) Ivonne Provider HEALTH MAINTENANCE Final Result * Hepatitis C antibody (06/04/2022 9:22 AM CDT) Hep C Ab NON-REACTI VE NON-REACT UMESH [facility] SIGNAL TO CUT-OFF 0.01 <1.00 [facility] Comment: HCV antibody was non-reactive. There is no laboratory evidence of HCV infection. In most cases, no further action is required. However, if recent HCV exposure is suspected, a test for HCV RNA (test code 63785) is suggested. For additional information please refer to http://education.[employer]/faq/JHQ25e1 (This link is being provided for informational/ educational purposes only.) Blood 06/04/2022 9:22 AM CDT 06/04/2022 9:25 AM CDT Narrative [facility] - 06/05/2022 10:11 AM CDT FASTING:YES FASTING: YES us Amarilis Mcfarlane MD LAB MICROBIOLOGY - GENERAL ORDERABLES Final Result [facility] [address] [place] [address] * Dexa Axial Skeleton Bone Density 1 or 2 Site (01/31/2022 9:03 AM CDT) Anatomical Region Laterality Modality Body N/A Mammography 01/31/2022 3:21 PM CDT Narrative 01/31/2022 3:21 PM CDT EXAM DESCRIPTION: DEXA AXIAL SKELETON BONE DENSITY 1 OR MORE SITES REASON FOR STUDY: 66 y/o year old F with given history of screening. 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 TB: TB Report ID: [id number] Reading Location: [facility] Procedure Note Middleton, Amrita Hall MD - 01/31/2022 EXAM DESCRIPTION: DEXA AXIAL SKELETON BONE DENSITY 1 OR MORE SITES REASON FOR STUDY: 66 y/o year old F with given history ofscreening. 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 TB: TB Report ID: [id number] Reading Location: [facility] [place] Amarilis Mcfarlane MD IMG DXA PROCEDURES Final Result * Colonoscopy (06/27/2021) Anatomical Region Laterality Modality Other Historical Provider ENDOSCOPY PROCEDURES Milagros l Result from Last 3 Months or Most Recently Relevant to Health Maintenance Insurance MEDICARE [facility] MEDICARE [facility] MEDICARE [employer] Care Teams Sales And Marketing Intern Relationship Specialty Start Date End Date Amarilis Mcfarlane MD [address] [place] [address] PCP - General Family Medicine 06/29/20 Bayron Barclay DO [facility], [facility] [address] [place], [place] [address] Medical Oncologist/Order To Delivery Supervisor Hematology and Oncology 04/28/23 Christine Katz PA [address] [place] [address] Physician Web Search Evaluator Family Medicine 03/03/25
--- OUTSIDE RECORDS SUMMARY | 2025-03-25 17:02 | XMS_ITS | Clinical Summary ---
Author Organization [facility] Address [address] [place] [address] Care Team Providers Care Sales Clerk Supervisor Name Role Phone Amarilis Mcfarlane MD Primary Care Provi julito Bayron Barclay DO Unavailable [phone] Christine Katz Unavailable Allergies Active Allergy Reactions Criticality Noted Date [...] 1 tablet (88 mcg total) by mouth wound care coordinator before breakfast 90 tablet 1 025 Active [...] 1 tablet (125 mcg total) by mouth wound care coordinator before breakfast Thyroid Function Carlin; Future Erythrocyte sedimentation rate; Future Comprehensive metabolic panel; Future BMI 28.0-28.9,adult 10/04/2024 Assessment & Plan (10/04/2024 2:48 PM INSURANCE LOSS CONTROL SURVEYOR): BMI Follow-up includes: education provided. Pericardial effusion [...] (12/08/2024 3:09 PM CDT): Orders: Thyroid Function Carlin; Future Assessment & Plan (11/25/2024 11:51 AM CDT): Orders: Synthroid 125 mcg tablet; Take 1 tablet (125 mcg total) by mouth wound care coordinator before breakfast Thyroid Function Carlin; Future Erythrocyte sedimentation rate; Future Comprehensive metabolic panel; Future Assessment & Plan (10/04/2024 2:50 PM INSURANCE LOSS CONTROL SURVEYOR): Chronic. Elevated mildly at last 2 lab checks. - Increase levothyroxine from 100-112 mcg daily - Repeat labs in 6 weeks Tingling in extremities 01/01/2024 Bilateral carpal tunnel syndrome 01/01/2024 Sphincter of Oddi dysfunction 07/22/2023 Overview (07/22/2024): Followed by GI Primary hypertension 05/26/2023 Assessment & Plan (12/08/2024 3:09 PM CDT): Assessment & Plan (10/04/2024 2:52 PM INSURANCE LOSS CONTROL SURVEYOR): Chronic. Mostly controlled. Patient's average readings from [...] week. Assessment & Plan (07/22/2023 3:39 PM INSURANCE LOSS CONTROL SURVEYOR): Chronic, stabe Continue current regimen Assessment & Plan (06/10/2023 11:28 AM CDT): Chronic, improved Continue losartan Continue clonidine only if needed Continue to follow with Cardiology Update me with any changes Call for questions Low bone mass 05/30/2022 Assessment & Plan (10/04/2024 2:49 PM INSURANCE LOSS CONTROL SURVEYOR): Chronic. Discussed recommendation for 500 mg of calcium daily or 3 servings of calcium in diet daily. Discussed recommendation for vitamin-D 4242-7322 international units daily. She may try to get this all from a multivitamin. Assessment & Plan (07/22/2023 3:39 PM INSURANCE LOSS CONTROL SURVEYOR): Chronic, stable Continue vitamin d Follow up testing ordered Assessment & Plan (05/30/2022 10:13 AM CDT): Continue vitamin d, calcium Strength training, walking H/O cardiac arrest 11/13/2021 Assessment & Plan (07/22/2023 3:37 PM INSURANCE LOSS CONTROL SURVEYOR): Chronic, stable Managed by cardiology Update me with any changes or concerns Assessment & Plan (05/30/2022 10:11 AM CDT): Following with cardiology Other headache syndrome 10/31/2021 Assessment & Plan (07/22/2023 3:39 PM INSURANCE LOSS CONTROL SURVEYOR): Acute, resolved Continue to monitor Update me if anything changes or worsens Assessment & Plan (05/30/2022 10:14 AM CDT): Occasional headaches Keep track of headaches Avoid triggers Update me if her symptoms change or worsen Assessment & Plan (10/31/2021 1:02 PM INSURANCE LOSS CONTROL SURVEYOR): Differential migraine versus cluster versus other With [...] 05/11/2021 Assessment & Plan (07/22/2023 3:40 PM INSURANCE LOSS CONTROL SURVEYOR): Chronic, stable Managed by cardiology S/p ICD placement Assessment & Plan (05/30/2022 10:13 AM CDT): S/p pacemaker Continue to follow with cardiology PVC's (premature ventricular contractions) 05/11 Assessment & Plan (07/22/2023 3:40 PM INSURANCE LOSS CONTROL SURVEYOR): Chronic, stable Managed by cardiology Update me with any changes or concerns Assessment & Plan (05/30/2022 10:13 AM CDT): S/p pacemaker Continue to follow with cardiology Nonsustained ventricular tachycardia 05/11/2021 Assessment & Plan (07/22/2023 3:39 PM INSURANCE LOSS CONTROL SURVEYOR): Chronic, stable Managed by cardiology S/p ICD placement Assessment & Plan (05/30/2022 10:13 AM CDT): S/p pacemaker Continue to follow with cardiology Family history of heart disease 05/11/2021 Assessment & Plan (07/22/2023 3:29 PM INSURANCE LOSS CONTROL SURVEYOR): Chronic, stable Managed by cardiology Continue current regimen Assessment & Plan (05/30/2022 10:10 AM CDT): Chronic, stable Continue to follow with cardiology Encounter for Medicare annual wellness exam 04/08 Overview (07/22/2024): Encouraged healthy diet and activity Please look into a power of fancy sewer or living will Health Maintenance: Last mammogram:07/31, 08/01- WNL Last DEXA: 01/27- Low bone mass-ordered Last colonoscopy: 06/28-repeat in 10 years Last Tdap: encouraged Last pneumonia: up to date Last Shingrix: reviewed Last Flu: reviewed Last COVID: reviewed Assessment & Plan (07/22/2024 8:04 AM INSURANCE LOSS CONTROL SURVEYOR): Encouraged healthy diet and activity Please look into a power of fancy sewer or living will Health Maintenance: Last mammogram:07/31, 08/01- WNL Last DEXA: 01/27- Low bone mass-ordered Last colonoscopy: 06/28-repeat in 10 years Last Tdap: encouraged Last pneumonia: up to date Last Shingrix: reviewed Last Flu: reviewed Last COVID: reviewed Assessment & Plan (07/22/2023 3:28 PM INSURANCE LOSS CONTROL SURVEYOR): Encouraged healthy diet and activity Please look into a power of fancy sewer or living will Health Maintenance: Last mammogram:07/31- WNL Last DEXA: 01/27- Low bone mass Last colonoscopy: 06/28-repeat in 10 years Last Tdap: encouraged Last pneumonia: up to date Last Shingrix: reviewed Last Flu: reviewed Last COVID: reviewed Assessment & Plan (05/30/2022 10:09 AM CDT): Encouraged healthy diet and activity Please look into a power of fancy sewer or living will Health Maintenance: Last mammogram:scheduled Last DEXA: 2020- Low bone mass Last colonoscopy: 06/28-repeat in 10 years Last Tdap: encouraged Last pneumonia: due second one Last Shingrix: reviewed Last Flu: reviewed Last COVID: reviewed Assessment & Plan (04/25/2021 2:08 PM CDT): Encouraged healthy diet and activity Please look into a power of fancy sewer or living will Wear sun screen, seat [...] (heartburn) Assessment & Plan (07/22/2023 3:36 PM INSURANCE LOSS CONTROL SURVEYOR): Chronic, stable Continue prilosec for now Consider [...] untreated Assessment & Plan (10/31/2021 1:01 PM INSURANCE LOSS CONTROL SURVEYOR): With esophagitis and gastritis on her CT scan Continue Prilosec b.i.d. 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 emergency service restorer Update me after the visit Assessment & Plan (04/25/2021 12:16 PM CDT): Continue omeprazole Reviewed the risk and benefits of medication Grief 08/01/2020 Assessment & Plan (07/22/2023 3:37 PM INSURANCE LOSS CONTROL SURVEYOR): Chronic, stable Continue supportive care Assessment & Plan (05/30/2022 10:11 AM CDT): Improved, doing well with supportive care Assessment & Plan (04/25/2021 12:15 PM CDT): Patient with a significant amount of loss over the last year Continue supportive care Update me if her mood worsens or changes Assessment & Plan (08/01/2020 1:22 PM INSURANCE LOSS CONTROL SURVEYOR): Some of her symptoms may be related to her most recent loss- weight loss Continue to use the support around her Update me with any concerns ICD (implantable cardioverter-defibrillator) in place 05/27/2016 Overview (06/19/2022): Medtronic Dual ICD-Evera. Dx; Cardiac Arrest, [place]. DOI 07/18/2014-Dr Bell. CareCounterTack remote is not working. Patient prefers office checks Q3 months. Assessment & Plan (11/25/2024 11:51 AM CDT): Orders: CT Coronary Calcium Scoring; Future Assessment & Plan (07/22/2023 3:38 PM INSURANCE LOSS CONTROL SURVEYOR): Chronic, stable Managed by cardiology Assessment & [...] PM CDT): History of thyroid cancer in 2013 status post total thyroidectomy, pathology report is [...] Orders: Ambulatory referral to Endocrinology Thyroid Function Carlin; Future Thyroglobulin antibodies; Future Assessment & Plan (03/03/2025 9:16 AM CDT): Orders: Ambulatory referral to Endocrinology; Future Assessment & Plan (12/21/2024 12:26 PM CDT): Assessment & Plan (07/22/2023 3:38 PM INSURANCE LOSS CONTROL SURVEYOR): Chronic, stable Managed by oncology Continue to monitor Assessment & Plan (05/30/2022 10:12 AM CDT): Chronic, stable Follows with oncology Continue synthroid Assessment & Plan (04/25/2021 2:10 PM CDT): Continue levothyroxine at current dose Continue to follow with Dr Barclay Resolved Problems Problem Noted Date Diagnosed Date Resolved Date Hypokalemia 06/02/2023 07/22/2024 Assessment & Plan (07/22/2023 3:38 PM INSURANCE LOSS CONTROL SURVEYOR): Chronic,s table Continue replacement History of torsades de pointes 05/08/2021 07/22/2024 Assessment & Plan (07/22/2023 3:38 PM INSURANCE LOSS CONTROL SURVEYOR): Chronic, stable Managed by cardiology S/p pacemaker Assessment & Plan (05/30/2022 10:12 AM CDT): S/p pacemaker Continue to follow with cardiology Allergic rhinitis 04/25/2021 07/22/2024 Assessment & Plan (07/22/2023 3:29 PM INSURANCE LOSS CONTROL SURVEYOR): Chronic, stable Asymptomatic Continue to monitor Assessment & Plan (05/30/2022 10:09 AM CDT): Chronic, stable Assessment & Plan (04/25/2021 2:11 PM CDT): Continue flonase Thyroid cancer ([facility]) 04/17/2018 Cardiac arrest 05/27/2016 11/13/2021 [...] Type Department Care Team Description 03/24/2025 Telephone [facility] of [address] [address] Candi Le MD Med Management 03/22/2025 8:00 AM CDT Office Visit [facility] [address] [address] Candi Le MD Postoperative hypothyroidism; History of thyroid cancer 03/18/2025 Results Follow-Up [address] [phone] Amarilis Mcfarlane MD Thyroid Function Carlin 03/15/2025 Orders Only [address] [phone] Amarilis Mcfarlane MD Postoperative hypothyroidism 03/15/[address] [phone] Amarilis Mcfarlane MD Labs Only 03/03/2025 9:35 AM CDT Lab [facility] [address] [place] [id number] Palpitation 03/03/2025 9:00 AM CDT Office Visit [address] [phone] Christine Katz PA Postoperative hypothyroidism (Primary Dx); History of thyroid cancer; Palpitation 03/03/2025 Results Follow-Up [address] [address] Christine Katz PA Magnesium, Basic metabolic panel, eGFR 02/24/2025 Results Follow-Up [address] [phone] Christine Katz PA Thyroid Function Carlin 01/28/2025 Orders Only [address] [phone] Amarilis Mcfarlane MD Acute cystitis with hematuria (Primary Dx); Postoperative hypothyroidism 01/25/2025 Results Follow-Up [address] [phone] Amarilis Mcfarlane MD Thyroid Function Carlin 01/03/2025 Results Follow-Up [address] [phone] Amarilis Mcfarlane MD Thyroglobulin antibodies 12/31/2024 Orders Only [address] [phone] Amarilis Mcfarlane MD History of thyroid cancer 12/29/2024 Results Follow-Up [address] [phone] Amarilis Mcfarlane MD HM MAMMOGRAPHY 12/27/2024 Orders Only [address] [phone] Amarilis Mcfarlane MD Primary hypertension from Last 3 Months Immunizations Immunization Administration [...] CAD. Heart attack Mother age 90 of [place] Hypertension Mother Breast cancer Sister Relation Name [...] file Legal Sex Female 7:51 AM INSURANCE LOSS CONTROL SURVEYOR Gender Identity Female 06/06/2023 10:34 AM CDT [...] 03/22/2025 8:06 AM CDT Plan of Treatment Health Maintenance Due Date Last Done Comments Hepatitis B Screening 1974 Zoster Vaccine (1 of 2) 2006 Osteoporosis Screening-Bone Density Scan 02/01/2024 01/31/2022 Covid-19 Vaccine ( - 2023-2 5 season) 2024 09/15/2023, 11/13/2020, 10/17/2020 Influenza Vaccine (#1) 2025 , 06/23/2023, 06/03/2022, Additional history exists Well Visit 65+ 07/22/2025 07/22/2024, 07/09, 07/22/2023, Additional history exists Breast Cancer Screening-Mammogram 12/27/2025 12/27/2024, 07/16/2024, 07/15/2023, Additional history exists Depression Screening 03/03/2026 03/03/2025, 12/21/2024, 12/08/2024, Additional history exists Fall Risk Assessment 03/22/2026 03/22/2025, 07/22/2024, 07/22/2023, Additional history exists Colon Cancer Screening-Colonoscopy 06/27/2031 06/27/2021 DTaP/Tdap/Td Vaccine (2 - Td or Tdap) 09/13/2033 09/13/2023, 09/03/2023 Colon Cancer Screening-CT Colonography Discontinued 06/27/2021 Colon Cancer Screening-DNA Stool Discontinued 06/27/20 Colon Cancer Screening-FIT Discontinued 06/27/2021 Colon Cancer Screening-Sigmoidoscopy Discontinued 06/27/2021 Hepatitis C Screening Completed 06/04/2022 Pneumococcal vaccine 65+ Completed 12/09/2022, 10/10 Procedures Procedure Name Priority Date/Time Associated Diagnosis [...] to Health Maintenance Results * Thyroid Function Carlin (03/17/2025 8:29 AM CDT) TSH 3.69 0.40 - 4.50 mIU/L [facility] Blood 03/17/2025 8:29 AM CDT 03/17/2025 8:30 AM CDT us Amarilis Mcfarlane MD LAB BLOOD ORDERABLE S Final Result [facility] [address] [place] [address] * (ABNORMAL) eGFR (03/03/2025 9:40 AM CDT) [...] last reviewed 2021. Testing performed by: [facility], [address] [place] [address]., [address] Blood 03/03/2025 9:40 AM CDT 03/03/2025 10:09 AM CDT us Christine PIZARRO LAB BLOOD ORDERABLES Final Resul t Performing Organization Address City/[facility]/ZIP Co de Phone Number [address] [place] [address] * ALT (03/03/2025 9:40 AM CDT) ALT 10 7 - 45 Units/L Comment:Testing performed by : [address] [address] Blood 03/03/2025 9:40 AM CDT 03/03/2025 10:09 AM CDT us Amarilis Mcfarlane MD LAB BLOOD ORDERABLE S Final Result Performing Organization Address [facility] Co de Phone Number [address] [address] * AST (03/03/2025 9:40 AM CDT) AST 16 10 - 45 Units/L Comment:Testing performed by : [address] [address] Blood 03/03/2025 9:40 AM CDT 03/03/2025 10:09 AM CDT us Amarilis Mcfarlane MD LAB BLOOD ORDERABLE S Final Result Performing Organization Address City/[facility] Co de Phone Number [address] [address] * Magnesium (03/03/2025 9:40 AM CDT) Magnesium 2.2 1.4 - 2.5 mg/dL Comment:Testing performed by : [address] [address] Blood 03/03/2025 9:40 AM CDT 03/03/2025 10:09 AM CDT us Christine PIZARRO LAB BLOOD ORDERABLES Final Resul t Performing Organization Address City/[facility] Co de Phone Number [address] [place] [address] * Creatine kinase (CK), total (03/03/2025 9:40 AM CDT) Pathologist [facility] CK 132 30 - 200 Units/L Comment:Testing performed by : [address] [address] Blood 03/03/2025 9:40 AM CDT 03/03/2025 10:09 AM CDT us Amarilis Mcfarlane MD LAB BLOOD ORDERABLE S Final Result Performing Organization Address [facility] Co de Phone Number [address] [address] * (ABNORMAL) Basic metabolic panel (03/03/2025 9:40 AM CDT) Pathologist [facility] Sodium 143 135 - 145 mmol/L Comment:Testing performed by : [address] [address] Potassium, pl 4.3 3.3 - 4.9 mmol/L SHARON Comment:Testing performed by : [address] [address] Chloride 105 97 - 110 mmol/L SHARON Comment:Testing performed by : [address] [address] CO2 28 22 - 32 mmol/L SHARON Comment:Testing performed by : [address] [address] Anion gap 10 2 - 15 mmol/L SHARON Comment:Testing performed by : [address] [address] BUN 19 6 - 25 mg/dL SHARON Comment:Testing performed by : [address] [address] Creatinine 1.08 0.60 - 1.10 mg/dL SHARON Comment:Testing performed by : [address] [address] Glucose 67(L) 70 - 199 mg/dL SHARON [...] was last revised 2022. Testing performed by: [address] [address] Calcium 9.1 8.5 - 10.3 mg/dL SHARON Comment:Testing performed by : [address] [address] Blood 03/03/2025 9:40 AM CDT 03/03/2025 10:09 AM CDT us Christine PIZARRO LAB BLOOD ORDERABLES Final Resul t SHARON [address] [facility] Department [place] [address] * Thyroid Function Carlin (02/23/2025 7:53 AM CDT) TSH 2.25 0.40 - 4.50 mIU/L [facility] Blood 02/23/2025 7:53 AM CDT 02/23/2025 7:53 AM CDT us Amarilis Mcfarlane MD LAB BLOOD ORDERABLE S Final Result Performing Organization Address [facility] Co de Phone Number [facility] [address] [place] [address] * (ABNORMAL) Thyroid Function Carlin (01/24/2025 10:05 AM CDT) TSH 0.39(L) 0.40 - 4.50 mIU/L [facility] Blood 01/24/2025 10:0 5 AM CDT 01/24/2025 10:05 AM CDT us Christine PIZARRO LAB BLOOD ORDERABLES Final Resul t Performing Organization Address [facility] de Phone Number [facility] [address] [place] [address] * T4, free (01/24/2025 10:05 AM CDT) Free T4 1.7 0.8 - 1.8 ng/dL [facility] 01/24/2025 10:0 5 AM CDT 01/24/2025 10:05 AM CDT us Christine PIZARRO LAB BLOOD ORDERABLES Final Resul t Performing Organization Address [facility] Co de Phone Number [facility] [address] [place] [address] * Thyroglobulin antibodies (12/31/2024 9:15 AM CDT) Thyroglobulin ab 1 < or = 1 IU/mL [facility] Blood 12/31/2024 9:15 AM CDT 12/31/2024 9:15 AM CDT us Amarilis Mcfarlane MD LAB BLOOD ORDERABLE S Final Result Performing Organization Address [facility] Co de Phone Number [facility] [address] [place] [address] * HM MAMMOGRAPHY (12/27/2024 1:02 PM CDT) Historical Provider HEALTH MAINTENANCE Final Result * Hepatitis [...] a test for HCV RNA (test code 42401) is suggested. For additional information please refer to http://education.PriceTag/faq/VGH43t9 (This link is being provided for informational/ educational purposes only.) Blood 06/04/2022 9:22 AM CDT 06/04/2022 9:25 AM CDT Narrative [facility] - 06/05/2022 10:11 AM CDT FASTING:YES FASTING: YES Amarilis Mcfarlane MD LAB MICROBIOLOGY - GENERAL ORDERABLES Final Result [facility] [address] [place] [address] * Dexa Axial Skeleton Bone Density 1 or 2 Site (01/31/2022 9:03 AM CDT) Anatomical Region Laterality Modality Body N/A Mammography 01/31/2022 3:21 PM CDT Narrative 01/31/2022 3:21 PM CDT EXAM DESCRIPTION: DEXA AXIAL SKELETON BONE DENSITY 1 OR MORE SITES REASON FOR STUDY: 66 y/o year old F with given history of screening. Business Analysis Analyst/Model: [place] Gardner A ([id number]/N [id number]) CLINICAL INFORMATION: Current height: 65 inches Maximum [...] Amrita Dennison M.D. TB: TB Report ID: [id number] Reading Location: [facility] Procedure Note MiddletonAmrita MD - 01/31/2022 EXAM DESCRIPTION: DEXA AXIAL SKELETON BONE DENSITY 1 OR MORE SITES REASON FOR STUDY: 66 y/o year old F with given history ofscreening. Business Analysis Analyst/Model: [place] Gardner A ([id number]) CLINICAL INFORMATION: Current height: 65 inches Maximum [...] Amrita Dennison M.D. TB: TB Report ID: [id number] [facility] Amarilis Mcfarlane MD IMG DXA PROCEDURES Final Result * Colonoscopy (06/27/2021) Anatomical Region Laterality Modality Other Historical Provider ENDOSCOPY PROCEDURES Milagros l Result from Last 3 Months or Most Recently Relevant to Health Maintenance Insurance MEDICARE [facility] MEDICARE [facility] MEDICARE [facility] [place] [address] Care Teams Sales Clerk Supervisor Relationship Specialty Start Date End Date Amarilis Mcfarlane MD [address] [place], [place] [phone] PCP - General Family Medicine 06/29/20 Bayron Barclay DO [address] [place] [address] MEDICAL ONCOLOGY, [facility] [address] [place] [address] Medical Oncologist/Loan Assistant Hematology and Oncology 04/28/23 Christine Katz PA [address] [place], [place] [phone] Physician Robotics Testing Technician Family Medicine 03/03/25
--- OUTSIDE RECORDS SUMMARY | 2025-03-25 17:02 | XMS_ITS | Encounter Summary ---
Author Organization [facility] Address [address] [place] [address] Care Team Providers Care Fruit Harvester Machine Operator Name Role Phone Amarilis Mcfarlane MD Primary Care Provi julito Bayron Barclay DO Unavailable [phone] Christine Katz Unavailable Encounter Details Date Type Department Care Team (Late st Contact Info) Description 03/03/2025 Results Follow-Up [facility] Family Medicine [address] [phone] Christine Katz PA [address] [address] Magnesium, Basic metabolic panel, eGFR Social History Tobacco Use Types Packs/Day Years [...] on file Legal Sex Female 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 Never 03/03/2025 8:48 AM Yessy Mcclelland MA Q2: How many drinks containing alcohol do you have on a typical day when you are drinking? Patient does not drink 03/03/2025 8:48 AM Yessy Mcclelland MA Q3: How often do you have six or more drinks on one occasion? Never 03/03/2025 8:48 AM Yessy Mcclelland MA documented as of this encounter Plan of Treatment Not on file documented as of this encounter Visit Diagnoses Not on filedocumented in this encounter Care Teams Fruit Harvester Machine Operator Relationship Specialty Start Date End Date Amarilis Mcfarlane MD [address] [place] [address] PCP - General Family Medicine 06/29/20 Bayron Barclay DO [address] [place] [address] MEDICAL ONCOLOGY, [facility] [address] [place] [address] Medical Oncologist/Rn Anesthesiology Hematology and Oncology 04/28/23 Christine Katz PA [address] [place] [address] Physician Transportation Department Head Family Medicine 03/03/25 documented as of this encounter
--- OUTSIDE RECORDS SUMMARY | 2025-03-25 17:02 | XMS_ITS | Clinical Summary ---
Author Organization [facility] Address [address] [address] Care Team Providers Care Analytical Technician Name Role Phone Brielle Mack MD Primary Care Provider [phone] Source Comments [facility],non-owned Affiliates and Associated Physician Practices is amultiple site organization consisting of ambulatory clinics and hospital sitesin [place], [place], [place] and [place]. This disclosure is being madepursuant to the Care Everywhere program and may not contain all information available regarding this patient. Last updated 18.[facility] Allergies Active Allergy Reactions Criticality Noted Date [...] P M CDT Height 166.4 cm (5' 5.5) 01/08/2019 3:40 PM CDT Body Mass Index [...] SCREENING 1956 LIPID TESTING 1955 MAMMOGRAM 1956 HEPATITIS C SCREENING 03/29/1974 DTAP/TDAP/TD VACCINES (1 - Tdap) 1975 PNEUMOCOCCAL VACCINE 50+ (1 of 1 - PCV) 2006 ZOSTER VACCINE (1 of 2) 2006 COVID-19 VACCINE (1 - 2023-2 5 season) 2024 DEPRESSION SCREENING 09/08/2024 INFLUENZA VACCINE (#1) 2025 06/08/2017 Respiratory Syncytial Virus (RSV) Vaccine Pt: or [...] age to complete this topic [place] [facility] Address: [address] [address] [employer] Care Teams Analytical Technician Relationship Specialty Start Date End Date Brielle Mack MD PCP - General Family Medicine 01/08/19
--- NOTE | 2025-03-25 17:10 | ED.FEMALEGU ---
HPI - Female Genitourinary General Chief complaint: Urogenital-Female Stated complaint: uti Time Seen by Provider: 03/25/25 17:10 Source: patient, RN notes reviewed and old records reviewed Mode of arrival: ambulatory Limitations: no limitations History of Present Illness HPI Narrative: 69-year-old female presents to the [facility] with concerns for a UTI. Reports burning, frequency, decreased output. Symptoms started this morning. Denies abdominal pain, no CVA tenderness. No nausea or vomiting. Denies fevers Reports that she had some blood on her tissue when wiping. Related Data Home Medications ?Medication ?Instructions ?Recorded ?Confirmed ?Last Taken ?Type potassium chloride 10 mEq 10 meq PO BID 08/30/21 10/26/24 10/26/24 History capsule,extended release cholecalciferol (vitamin D3) 250 2,000 mcg PO DAILY 12/04/21 10/26/24 10/26/24 History mcg (10,000 unit) capsule cyanocobalamin (vitamin B-12) 50 50 mcg PO DAILY 01/02/24 10/26/24 10/26/24 History mcg tablet omeprazole 20 mg capsule,delayed 20 mg PO DAILY PRN nausea 01/02/24 10/26/24 Unknown History release losartan 100 mg tablet 100 mg PO BID 06/25/24 10/26/24 10/26/24 History clonidine HCl 0.1 mg tablet 0.1 mg PO .prn 08/26/24 10/26/24 Unknown History dicyclomine 10 mg capsule 10 mg PO .prn abdominal discomfort 08/26/24 10/26/24 Unknown History meclizine 25 mg tablet 25 mg PO .prn Nausea 08/26/24 10/26/24 Unknown History atorvastatin 20 mg tablet 10 mg PO QPM 10/26/24 10/26/24 10/26/24 History levothyroxine 88 mcg tablet mcg 03/25/25 Unknown History (Synthroid) Allergies Allergy/AdvReac Type Severity Reaction Status Date / Time diphenhydramine (From AdvReac Severe Palpitation Verified 03/25/25 17:10 Benadryl) s erythromycin base AdvReac Severe Palpitation Verified 03/25/25 17:10 s anything prolongs QT AdvReac Unknown Uncoded 12/27/24 08:39 Review of Systems Review of Systems: All systems reviewed & are unremarkable except as noted in HPI and below Constitutional: Constitutional: Reports no additional constitutional complaints Gastrointestinal: Gastrointestinal: Reports no additional gastrointestinal complaints Genitourinary: Genitourinary: Reports as per HPI Musculoskeletal: Musculoskeletal: Reports no additional musculoskeletal complaints Integumentary/Breasts: Skin/Breast: Reports system reviewed and no additional complaints, except as docu PMFSH Past Medical History Medical History Diarrhea Calculus of cystic duct without obstruction Rectal bleeding Abdominal pain Abnormal CT of the abdomen Neck pain Gastroesophageal reflux disease QT prolongation ICD (implantable cardioverter-defibrillator) battery depletion Torsades de pointes TMJ (dislocation of temporomandibular joint) GERD (gastroesophageal reflux disease) Thyroid cancer Surgical History Surgical History History of sphincterotomy of sphincter of Oddi Hx of cholecystectomy History of appendectomy Social History Social History Smoking status: Never smoker Alcohol intake: never Substance use: never Living arrangements: with family Gender identity (if verbalized by the patient): Female Spiritual care concerns: No Comments At the time of my signature, I reviewed and agree with the nursing past medical, surgical, social, and family history. There is no relevant family history pertinent to the patient complaint. Exam Const: General: cooperative, healthy appearing, comfortable, no acute distress, well developed, alert and well nourished Nutritional Appearance: well nourished Orientation/consciousness: patient oriented x3 Limitations: no limitations HENMT: Head: normal to inspection Eyes: General: appearance normal, both eyes and all related structures Alignment and Position: alignment normal Neck: Neck: normal visual inspection, full ROM, no lymphadenopathy and no meningeal signs Chest: Chest palpation & inspection: normal inspection of the chest Resp: Effort & Inspection: normal respiratory effort and able to speak in complete sentences Auscultation: clear to auscultation bilaterally, no crackles, no rales, no rhonchi and no wheezes Cardio: Rate: regular rate GI: GI Palp: No abdominal tenderness : General: Yes no CVA tenderness Skin: General skin exam: normal color and no rashes or lesions noted Neuro: General: patient oriented x3, gait normal, moves all extremities and no meningeal signs Cognition (Neuro): normal cognition Speech: normal speech Gait exam (Neuro): Normal gait present Extrem: General: normal to inspection, full ROM, capillary refill normal and normal gait Psych: Appearance: grossly normal and well kempt Mental Status: mental status grossly normal Speech and movement: Normal speech and movement present and Clear speech present Affect: normal affect Attitude: cooperative Course Course Level of Care: Express Care Visit Vital Signs Vital signs: Vital Signs Temperature 98.5 F 03/25/25 17:13 Pulse Rate 79 03/25/25 17:13 Respiratory Rate 14 03/25/25 17:13 Blood Pressure 144/77 H 03/25/25 17:13 Pulse Oximetry 100 03/25/25 17:13 Oxygen Delivery Room Air 03/25/25 17:13 Temperature 98.5 F 03/25/25 17:13 Pulse Rate 79 03/25/25 17:13 Respiratory Rate 14 03/25/25 17:13 Blood Pressure 144/77 H 03/25/25 17:13 Pulse Oximetry 100 03/25/25 17:13 Oxygen Delivery Room Air 03/25/25 17:13 Reviewed MDM - Female Genitourinary MDM Narrative Medical decision making narrative: Patient sitting comfortably in exam room. Patient is nontoxic, vitals stable. Patient presents with concern for UTI. Patient positive blood, positive leukocytes, will culture. Start on Augmentin Patient appropriate for outpatient treatment with close follow-up with her urologist Discharge instructions reviewed with patient, as well as provided in writing per nursing staff. The instructions also include specific and strict return/GO TO THE ER as well as f/u information. All questions have been answered, and the patient deny any further questions with discharge and discharge plan. Some parts of this dictation were generated by voice recognition software and may contain typographical and/or grammatical inaccuracies. Differential Diagnosis Differential diagnosis: Likely urinary tract infection and cystitis Lab Data Labs: Lab Results 03/25/25 Range/Units 17:17 POC Urine Color Yellow POC Urine Clarity Cloudy POC Urine pH 6.0 POC Ur Specif [place] 1.015 POC Urine Protein 3+ (Negative) POC Ur Glucose (UA) Negative (Negative) POC Urine Ketones Negative (Negative) POC Urine Blood 3+ (Negative) POC Urine Nitrite Negative (Negative) POC Urine Bilirubin Negative (Negative) POC Urine Urobilinogen 0.2 POC U Leukocyte Esteras 2+ (Negative) Reviewed Critical Care Time Critical Care Time Critical Care Time: No Discharge Plan Discharge Clinical Impression: Urinary tract infection Qualifiers: Urinary tract infection type: acute cystitis Hematuria presence: with hematuria Qualified Code(s): N30.01 - Acute cystitis with hematuria Patient Disposition: Home Condition: Stable Instructions: Antibiotic Form, Urinary Tract Infection in Women (DC) Additional Instructions: Increased water intake Take Tylenol as needed for pain Take antibiotic as prescribed Today your urine dip showed a probability of a UTI. You have been prescribed an antibiotic. Your urine will be sent to our lab for a culture. If at that time a bacteria grows that is not covered by the antibiotic prescribed you will be notified. Follow-up with primary care For new or worsening symptoms go directly to the emergency room Patient Language: [place] Prescriptions: New amoxicillin-pot clavulanate 875-125 mg tablet 1 tablet PO Q12H Qty: 14 0RF No Action potassium chloride 10 mEq capsule, extended release 10 meq PO BID nitrofurantoin monohyd/m-cryst [Macrobid] 100 mg capsule 100 mg PO Q12H 5 Days Qty: 10 0RF Rx Instructions: must administer with a meal/food levothyroxine [Synthroid] 88 mcg tablet meclizine 25 mg tablet 25 mg PO .prn omeprazole 20 mg capsule,delayed release(DR/EC) 20 mg PO DAILY PRN (Reason: nausea) cyanocobalamin (vitamin B-12) 50 mcg Tablet 50 mcg PO DAILY losartan 100 mg tablet 100 mg PO BID dicyclomine 10 mg capsule 10 mg PO .prn clonidine HCl 0.1 mg tablet 0.1 mg PO .prn cholecalciferol (vitamin D3) 250 mcg (10,000 unit) capsule 2,000 mcg PO DAILY atorvastatin 20 mg tablet 10 mg PO QPM Follow-up/Referrals: Maeve,MD Amarilis [Primary Care Provider] - 1 Week (express care follow up) Time of Disposition: 17:17
[2025-03-25 17:13] VITALS: BP 144/77; PULSE 79; RESP 14; TEMP 36.9; O2SAT 100
[2025-03-25 17:20] LABS: EDUAAPPEAR Cloudy; EDUABILI Negative (Negative); EDUABLOOD 3+ (Negative); EDUACOLOR1 Yellow; EDUAGLUCOSE Negative (Negative); EDUAKETONE Negative (Negative); EDUALEUKO 2+ (Negative); EDUANITRATE Negative (Negative); EDUAPH 6.0; EDUAPROTEIN 3+ (Negative); EDUASPGRAVITY 1.015; EDUAUROBILI 0.2
== END 2025-03-25 17:26 | disposition home or self-care (01) ==
PROVIDERS: Emergency Provider Nurse Practitioner; PCP Family Medicine
DX: N30.01 Acute cystitis with hematuria (principal); K21.9 Gastro-esophageal reflux disease without esophagitis; Z95.810 Presence of automatic (implantable) cardiac defibrillator; Z85.850 Personal history of malignant neoplasm of thyroid
CPT/HCPCS: 81003; 87086; 99213; G0463

== ENCOUNTER 2025-04-07 07:00 | Emergency (ER) | payer MEDICARE, OTHER, SELFPAY ==
--- NOTE | ~2025-04-07 | CT_ITS ---
CLINICAL INDICATION: Right flank pain COMPARISON: 08/03/2024. TECHNIQUE: Multiple contiguous axial images of the abdomen and pelvis were performed without the admi nistration of intravenous contrast The dose-length product (DLP) was 453.49 mGy-cm. Automated exposure control and iterative reconstruction technique were employed. FINDINGS/OBSERVATIONS: Visualized lower thorax: Left basilar nodular pleural thickening, an interval change from 2023 examination. The remainder of the bilateral lung bases are otherwise clear. The heart is of normal size, with a small pericardial effusion, unchanged. Small hiatal hernia is present. Liver: The liver demonstrates homogeneous attenuation and is not enlarged proximal. Gallbladder and biliary system: The gallbladder is surgically absent. Pancreas: Limited evaluation of the pancreas secondary to the lack of intravenous contrast. Spleen: Punctate calcifications identified within the splenic parenchyma, suggesting prior granulomat ous disease. The remainder of the spleen demonstrates otherwise homogeneous attenuation and is not enlarged. Kidneys: Interval enlargement of the right renal cyst, seen on previous examination and previously aspirated o n 07/06/2024. This cyst previously measured 28 x 36 x 40 mm (anterior to posterior x medial to lateral x cranial to caudal dimension) on 08/03/2024. On today's study, this cyst measures 76 x 76 x 85 mm (anterior to posterior x medial to lateral x craft center director nial to caudal dimension) - more than doubled in size. The left kidney demonstrates bulky calcifications, but is otherwise unremarkable. Adrenal glands: Unremarkable. Gastrointestinal tract: Colonic diverticulosis without surrounding inflammatory change. Appendix: Absent. Vasculature: Calcified atherosclerotic disease. Lymph nodes: No pathologically enlarged or morphologically suspicious lymph nodes within the retroperitoneum or at the root of the mesentery. Pelvic structures: The bladder is minimally distended, and otherwise unremarkable. The uterus is retroverted and retroflexed containing bulky calcifications consistent with fibroid dis ease. Body wall and musculoskeletal: Trace degenerative disease within the lower thoracic and lumbosacral spine. IMPRESSION: Interval enlargement of the right renal cyst when compared with previous examination performed 2023 Reviewed, dictated and finalized at location A. IMPRESSION: Interval enlargement of the right renal cyst when compared with previous examin ation performed 08/03/2024
--- OUTSIDE RECORDS SUMMARY | 2025-04-07 07:03 | XMS_ITS | Encounter Summary ---
Author Organization [facility] Facility Care Team Providers Care Vibration Technician Name Role Phone Brielle Mack MD Primary Care Provider Amarilis Mcfarlane MD Primary Care Provi julito Bayron Barclay DO Unavailable [phone] Christine Katz Unavailable Encounter Details Date Type Department Care Team (Latest Contact Info) Description 07/02/2017 Orders Only [facility] CLINCONV Provider, MD Ivonne [address] [place] [address] Social History Tobacco Use Types Packs/Day Years Used Date Smoking Tobacco: Never Assessed Comments Unknown Sex and Gender Information Value Date Recorded Sex Assigned at Not on file Legal Sex Female 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 [address] [place], [place] [phone] Medical Oncologist/Postdoctoral Fellow Hematology and Oncology 04/28/23 Christine Katz PA [address] [place], [place] [id number] Physician Executive Vice President Family Medicine 03/03/25 documented as of this encounter
--- OUTSIDE RECORDS SUMMARY | 2025-04-07 07:03 | XMS_ITS | Encounter Summary ---
Author Organization [facility] Facility Care Team Providers Care Research Laboratory Technician Name Role Phone Brielle Mack MD Primary Care Provider Amarilis Mcfarlane MD Primary Care Provi julito Bayron Barclay DO Unavailable [phone] Christine Katz Unavailable Encounter Details Date Type Department Care Team (Latest Contact Info) Description 05/27/2016 Orders Only [facility] CLINCONV Provider, MD Ivonne [address] [place] [address] Social History Tobacco Use Types Packs/Day Years Used Date Smoking Tobacco: Never Assessed Comments Unknown Sex and Gender Information Value Date Recorded Sex Assigned at Not on file Legal Sex Female 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 Gender Identity Female 06/06/2023 10:34 AM [...] COVID: Suspected 09/13/2021 09/13/2021 09/14/2021 12:34 AM CONSERVATION OR HERITAGE ARCHITECT COVID: Suspected 05/25/2024 05/25/2024 05/25/2024 9:56 AM CDT documented as of this encounter Care Teams Research Laboratory Technician Relationship Specialty Start Date End Date Brielle Mack MD PCP - General 10/23/17 06/28/20 Amarilis Mcfarlane MD [address] [place], [place] [address] PCP - General Family Medicine 06/29/20 Bayron Barclay DO [address] [place] [address] MEDICAL ONCOLOGY, [facility] [address] [place], [place] [address] Medical Oncologist/Probate Clerk Hematology and Oncology 04/28/23 Christine Katz PA [address] [place], [place] [address] Physician Senior Tableau Developer Family Medicine 03/03/25 documented as of this encounter
--- OUTSIDE RECORDS SUMMARY | 2025-04-07 07:03 | XMS_ITS | Encounter Summary ---
Author Organization [facility] Healthcare Address [address] [place] [address] Care Team Providers Care Emergency Department Aide Name Role Phone Amarilis Mcfarlane MD Primary Care Provi julito Bayron Barclay DO Unavailable [phone] Christine Katz Unavailable Encounter Details Date Type Department Care Team (Late st Contact Info) Description 03/18/2025 Results Follow-Up [facility] Medical Group Family Medicine [address] [phone] Amarilis Mcfarlane MD [address] [address] Thyroid Function [place] Social History Tobacco Use Types Packs/Day Years [...] on file Legal 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 Gender Identity Female 06/06/2023 10:34 AM CDT Sexual Orientation Straight 06/06/2023 10 :34 AM CDT documented as of this encounter Plan of Treatment Not on file documented as of this encounter Visit Diagnoses Not on filedocumented in this encounter Care Teams Emergency Department Aide Relationship Specialty Start Date End Date Amarilis Mcfarlane MD [address] [place] [address] PCP - General Family Medicine 06/29/20 Bayron Barclay DO [employer] MEDICAL ONCOLOGY, [facility] [address] [place], [place] [address] Medical Oncologist/Exercise Physiologist Certified Hematology and Oncology 04/28/23 Christine Katz PA [address] [place] [address] Physician Store Group Manager Family Medicine 03/03/25 documented as of this encounter
--- OUTSIDE RECORDS SUMMARY | 2025-04-07 07:03 | XMS_ITS | Encounter Summary ---
Author Organization [facility] Facility Care Team Providers Care Healthcare Account Manager Name Role Phone Brielle Mack MD Primary Care Provider [phone] Amarilis Mcfarlane MD Primary Care Provi julito Bayron Barclay DO Unavailable [phone] Christine Katz Unavailable Encounter Details Date Type Department Care Team (Latest Contact Info) Description 08/29/2016 Orders Only [facility] CLINCONV Provider, MD Ivonne [address] [place] [address] Social History Tobacco Use Types Packs/Day Years Used Date Smoking Tobacco: Never Assessed Comments Unknown Sex and Gender Information Value Date Recorded Sex Assigned at Not on file Legal Sex Female 7:51 AM MEDICAL RECORDS TECHNICIAN Gender Identity Female 06/06/2023 10:34 AM CDT Sexual Orientation Straight 06/06/2023 10 :34 AM CDT documented as of this encounter Plan of Treatment Not on file documented as of this encounter Procedures Procedure Name Priority Date/Time Associated Diagnosis Comments CARDIOLOGY REPORT 09/04/2016 12: 00 AM MEDICAL RECORDS TECHNICIAN CARDIOLOGY REPORT 08/29/2016 12: 00 AM MEDICAL RECORDS TECHNICIAN documented in this encounter Results * CARDIOLOGY REPORT (09/04/2016 12:00 AM MEDICAL RECORDS TECHNICIAN) Anatomical Region Laterality Modality Other Narrative 09/04/2016 12:00 AM MEDICAL RECORDS TECHNICIAN Ordered by an unspecified provider. us Historical Provider CV CARDIAC SERVICES PROCE DURES Final Result * CARDIOLOGY REPORT (08/29/2016 12:00 AM MEDICAL RECORDS TECHNICIAN) Anatomical Region Laterality Modality Other Narrative 08/29/2016 12:00 AM MEDICAL RECORDS TECHNICIAN Ordered by an unspecified provider. us Historical Provider CV CARDIAC SERVICES PROCE DURES Final Result documented in this encounter Visit Diagnoses Not on filedocumented in this encounter Additional Health Concerns Infection Onset Date Last Indicated Resolved Time COVID: Suspected 09/13/2021 09/13/2021 09/14/2021 12:34 AM MEDICAL RECORDS TECHNICIAN COVID: Suspected 05/25/2024 05/25/2024 05/25/2024 9:56 AM CDT documented as of this encounter Care Teams Healthcare Account Manager Relationship Specialty Start Date End Date Brielle Mack MD PCP - General 10/23/17 06/28/20 Amarilis Mcfarlane MD [address] [place], [place] [id number] PCP - General Family Medicine 06/29/20 Bayron Barclay DO [address] [place] [address] MEDICAL ONCOLOGY, [facility] [address] [place], [place] [phone] Medical Oncologist/Retread Operator Hematology and Oncology 04/28/23 Christine Katz PA [address] [place], [place] [address] Physician Range Master Family Medicine 03/03/25 documented as of this encounter
--- OUTSIDE RECORDS SUMMARY | 2025-04-07 07:03 | XMS_ITS | Encounter Summary ---
Author Organization [facility] Facility Care Team Providers Care Yeast Washer Name Role Phone Brielle Mack MD Primary Care Provider Amarilis Mcfarlane MD Primary Care Provi julito Bayron Barclay DO Unavailable [phone] Christine Katz Unavailable Encounter Details Date Type Department Care Team (Latest Contact Info) Description 02/29/2016 Orders Only [facility] CLINCONV Provider, MD Ivonne [address] [place] [address] Social History Tobacco Use Types Packs/Day Years Used Date Smoking Tobacco: Never Assessed Comments Unknown Sex and Gender Information Value Date Recorded Sex Assigned at Not on file Legal Sex Female 7:51 AM SHADE MAKER Gender Identity Female 06/06/2023 10:34 AM CDT [...] COVID: Suspected 09/13/2021 09/13/2021 09/14/2021 12:34 AM SHADE MAKER COVID: Suspected 05/25/2024 05/25/2024 05/25/2024 9:56 AM CDT documented as of this encounter Care Teams Yeast Washer Relationship Specialty Start Date End Date Brielle Mack MD PCP - General 10/23/17 06/28/20 Amarilis Mcfarlane MD [address] [place], [place] [address] PCP - General Family Medicine 06/29/20 Bayron Barclay DO [address] [place] [address] MEDICAL ONCOLOGY, [facility] [address] [place], [place] [address] Medical Oncologist/Rn Sane Hematology and Oncology 04/28/23 Christine Katz PA [address] [place], [place] [address] Physician Car Pusher Family Medicine 03/03/25 documented as of this encounter
--- OUTSIDE RECORDS SUMMARY | 2025-04-07 07:03 | XMS_ITS | Encounter Summary ---
Author Organization [facility] Facility Care Team Providers Care Wildlife Ecologist Name Role Phone Brielle Mack MD Primary Care Provider [phone] Amarilis Mcfarlane MD Primary Care Provi julito Bayron Barclay DO Unavailable [phone] Christine Katz Unavailable Encounter Details Date Type Department Care Team (Latest Contact Info) Description 12/01/2017 Orders Only [facility] CLINCONV Provider, MD Ivonne [address] [place] [address] Social History Tobacco Use Types Packs/Day Years Used Date Smoking Tobacco: Never Assessed Comments Unknown Sex and Gender Information Value Date Recorded Sex Assigned at Not on file Legal Sex Female 7:51 AM REGISTRY NP Gender Identity Female 06/06/2023 10:34 AM CDT [...] COVID: Suspected 09/13/2021 09/13/2021 09/14/2021 12:34 AM REGISTRY NP COVID: Suspected 05/25/2024 05/25/2024 05/25/2024 9:56 AM CDT documented as of this encounter Care Teams Wildlife Ecologist Relationship Specialty Start Date End Date Brielle Mack MD PCP - General 10/23/17 06/28/20 Amarilis Mcfarlane MD [address] [place], [place] [phone] PCP - General Family Medicine 06/29/20 Bayron Barclay DO [address] [place] [address] MEDICAL ONCOLOGY, [facility] [address] [place], [place] [phone] Medical Oncologist/Coal Sampler Hematology and Oncology 04/28/23 Christine Katz PA [address] [place], [place] [phone] Physician Skin Care Consultant Family Medicine 03/03/25 documented as of this encounter
--- OUTSIDE RECORDS SUMMARY | 2025-04-07 07:03 | XMS_ITS | Clinical Summary ---
Author Organization [facility] Address [address] [place] [address] Care Team Providers Care Loan Processor Name Role Phone Amarilis Mcfarlane MD Primary Care Provi julito Bayron Barclay DO Unavailable Christine Katz Unavailable Allergies Active Allergy Reactions [...] HIGH BLOOD PRESSURE 15 tablet 025 Active Additional Information Patient taking differently: 0.1 mg oral Daily PRN, Reported on 04/04/2025 meclizine (ANTIVERT) 25 mg tablet TAKE 1 TABLET(25 MG) BY MOUTH THREE TIMES DAILY NEEDED FOR DIZZINESS 30 tablet 025 Active Additional Information Patient taking differently: 25 mg oral 3 times daily PRN, Reported on 04/04/2025 omeprazole (PriLOSEC) 20 mg capsuleIndication s:Gastroesophagea l reflux disease without esophagitis Take 1 capsule (20 mg total) by mouth daily as needed (heartburn) 025 Active Additional Information Patient not taking.Reported on 04/04/2025 famotidine (PEPCID) 20 mg tablet Take 1 tablet (20 mg total) by mouth 2 (two) times a day as needed for heartburn Active losartan (COZAAR) 100 mg tabletIndications :Primary hypertension Take 1 tablet (100 mg total) by mouth daily 90 tablet 2 025 Active levothyroxine (Synthroid) 88 mcg tabletIndications :Postoperative hypothyroidism Take 1 tablet (88 mcg total) by mouth jig grinder before breakfast 90 tablet 1 025 Active potassium chloride ER 10 mEq CR tabletIndications :ICD (implantable cardioverter-defi brillator) in place TAKE 1 CAPSULE(10 MEQ) BY MOUTH TWICE DAILY 200 tablet/caps ule 1 025 Active Additional Information Patient taking differently: 10 mEq oral Daily, Reported on 04/04/2025 levothyroxine (SYNTHROID) 88 mcg tablet Take 0.5 tablets (44 mcg total) by mouth once a week Active potassium chloride ER 10 mEq CR [...] 1 tablet (125 mcg total) by mouth jig grinder before breakfast Thyroid Function Rachel; Future Erythrocyte sedimentation rate; Future Comprehensive metabolic panel; Future BMI 28.0-28.9,adult 10/04/2024 Assessment & Plan (10/04/2024 2:48 PM EXERCISE PHYSIOLOGIST): BMI Follow-up includes: education provided. Pericardial effusion [...] (12/08/2024 3:09 PM CDT): Orders: Thyroid Function Rachel; Future Assessment & Plan (11/25/2024 11:51 AM CDT): Orders: Synthroid 125 mcg tablet; Take 1 tablet (125 mcg total) by mouth jig grinder before breakfast Thyroid Function Rachel; Future Erythrocyte sedimentation rate; Future Comprehensive metabolic panel; Future Assessment & Plan (10/04/2024 2:50 PM EXERCISE PHYSIOLOGIST): Chronic. Elevated mildly at last 2 lab checks. - Increase levothyroxine from 100-112 mcg daily - Repeat labs in 6 weeks Tingling in extremities 01/01/2024 Bilateral carpal tunnel syndrome 01/01/2024 Sphincter of Oddi dysfunction 07/22/2023 Overview (07/22/2024): Followed by GI Primary hypertension 05/26/2023 Assessment & Plan (12/08/2024 3:09 PM CDT): Assessment & Plan (10/04/2024 2:52 PM EXERCISE PHYSIOLOGIST): Chronic. Mostly controlled. Patient's average readings from [...] week. Assessment & Plan (07/22/2023 3:39 PM EXERCISE PHYSIOLOGIST): Chronic, stabe Continue current regimen Assessment & Plan (06/10/2023 11:28 AM CDT): Chronic, improved Continue losartan Continue clonidine only if needed Continue to follow with Cardiology Update me with any changes Call for questions Low bone mass 05/30/2022 Assessment & Plan (10/04/2024 2:49 PM EXERCISE PHYSIOLOGIST): Chronic. Discussed recommendation for 500 mg of calcium daily or 3 servings of calcium in diet daily. Discussed recommendation for vitamin-D 2922-8033 international units daily. She may try to get this all from a multivitamin. Assessment & Plan (07/22/2023 3:39 PM EXERCISE PHYSIOLOGIST): Chronic, stable Continue vitamin d Follow up testing ordered Assessment & Plan (05/30/2022 10:13 AM CDT): Continue vitamin d, calcium Strength training, walking H/O cardiac arrest 11/13/2021 Assessment & Plan (07/22/2023 3:37 PM EXERCISE PHYSIOLOGIST): Chronic, stable Managed by cardiology Update me with any changes or concerns Assessment & Plan (05/30/2022 10:11 AM CDT): Following with cardiology Other headache syndrome 10/31/2021 Assessment & Plan (07/22/2023 3:39 PM EXERCISE PHYSIOLOGIST): Acute, resolved Continue to monitor Update me if anything changes or worsens Assessment & Plan (05/30/2022 10:14 AM CDT): Occasional headaches Keep track of headaches Avoid triggers Update me if her symptoms change or worsen Assessment & Plan (10/31/2021 1:02 PM EXERCISE PHYSIOLOGIST): Differential migraine versus cluster versus other With [...] 05/11/2021 Assessment & Plan (07/22/2023 3:40 PM EXERCISE PHYSIOLOGIST): Chronic, stable Managed by cardiology S/p ICD placement Assessment & Plan (05/30/2022 10:13 AM CDT): S/p pacemaker Continue to follow with cardiology PVC's (premature ventricular contractions) 05/11 Assessment & Plan (07/22/2023 3:40 PM EXERCISE PHYSIOLOGIST): Chronic, stable Managed by cardiology Update me with any changes or concerns Assessment & Plan (05/30/2022 10:13 AM CDT): S/p pacemaker Continue to follow with cardiology Nonsustained ventricular tachycardia 05/11/2021 Assessment & Plan (07/22/2023 3:39 PM EXERCISE PHYSIOLOGIST): Chronic, stable Managed by cardiology S/p ICD placement Assessment & Plan (05/30/2022 10:13 AM CDT): S/p pacemaker Continue to follow with cardiology Family history of heart disease 05/11/2021 Assessment & Plan (07/22/2023 3:29 PM EXERCISE PHYSIOLOGIST): Chronic, stable Managed by cardiology Continue current regimen Assessment & Plan (05/30/2022 10:10 AM CDT): Chronic, stable Continue to follow with cardiology Encounter for Medicare annual wellness exam 04/08 Overview (07/22/2024): Encouraged healthy diet and activity Please look into a power of environmental attorney or living will Health Maintenance: Last mammogram:07/31, 08/01- WNL Last DEXA: 01/27- Low bone mass-ordered Last colonoscopy: 06/28-repeat in 10 years Last Tdap: encouraged Last pneumonia: up to date Last Shingrix: reviewed Last Flu: reviewed Last COVID: reviewed Assessment & Plan (07/22/2024 8:04 AM EXERCISE PHYSIOLOGIST): Encouraged healthy diet and activity Please look into a power of environmental attorney or living will Health Maintenance: Last mammogram:07/31, 08/01- WNL Last DEXA: 01/27- Low bone mass-ordered Last colonoscopy: 06/28-repeat in 10 years Last Tdap: encouraged Last pneumonia: up to date Last Shingrix: reviewed Last Flu: reviewed Last COVID: reviewed Assessment & Plan (07/22/2023 3:28 PM EXERCISE PHYSIOLOGIST): Encouraged healthy diet and activity Please look into a power of environmental attorney or living will Health Maintenance: Last mammogram:07/31- WNL Last DEXA: 01/27- Low bone mass Last colonoscopy: 06/28-repeat in 10 years Last Tdap: encouraged Last pneumonia: up to date Last Shingrix: reviewed Last Flu: reviewed Last COVID: reviewed Assessment & Plan (05/30/2022 10:09 AM CDT): Encouraged healthy diet and activity Please look into a power of environmental attorney or living will Health Maintenance: Last mammogram:scheduled Last DEXA: 2020- Low bone mass Last colonoscopy: 06/28-repeat in 10 years Last Tdap: encouraged Last pneumonia: due second one Last Shingrix: reviewed Last Flu: reviewed Last COVID: reviewed Assessment & Plan (04/25/2021 2:08 PM CDT): Encouraged healthy diet and activity Please look into a power of environmental attorney or living will Wear sun screen, [...] (heartburn) Assessment & Plan (07/22/2023 3:36 PM EXERCISE PHYSIOLOGIST): Chronic, stable Continue prilosec for now Consider [...] untreated Assessment & Plan (10/31/2021 1:01 PM EXERCISE PHYSIOLOGIST): With esophagitis and gastritis on her CT scan Continue Prilosec b.i.d. 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 advisory services associate Update me after the visit Assessment & Plan (04/25/2021 12:16 PM CDT): Continue omeprazole Reviewed the risk and benefits of medication Grief 08/01/2020 Assessment & Plan (07/22/2023 3:37 PM EXERCISE PHYSIOLOGIST): Chronic, stable Continue supportive care Assessment & Plan (05/30/2022 10:11 AM CDT): Improved, doing well with supportive care Assessment & Plan (04/25/2021 12:15 PM CDT): Patient with a significant amount of loss over the last year Continue supportive care Update me if her mood worsens or changes Assessment & Plan (08/01/2020 1:22 PM EXERCISE PHYSIOLOGIST): Some of her symptoms may be related [...] Future Assessment & Plan (07/22/2023 3:38 PM EXERCISE PHYSIOLOGIST): Chronic, stable Managed by cardiology Assessment & [...] Orders: Ambulatory referral to Endocrinology Thyroid Function Rachel; Future Thyroglobulin antibodies; Future Assessment & Plan (03/03/2025 9:16 AM CDT): Orders: Ambulatory referral to Endocrinology; Future Assessment & Plan (12/21/2024 12:26 PM CDT): Assessment & Plan (07/22/2023 3:38 PM EXERCISE PHYSIOLOGIST): Chronic, stable Managed by oncology Continue to monitor Assessment & Plan (05/30/2022 10:12 AM CDT): Chronic, stable Follows with oncology Continue synthroid Assessment & Plan (04/25/2021 2:10 PM CDT): Continue levothyroxine at current dose Continue to follow with Dr Barclay Resolved Problems Problem Noted Date Diagnosed Date Resolved Date Hypokalemia 06/02/2023 07/22/2024 Assessment & Plan (07/22/2023 3:38 PM EXERCISE PHYSIOLOGIST): Chronic,s table Continue replacement History of torsades de pointes 05/08/2021 07/22/2024 Assessment & Plan (07/22/2023 3:38 PM EXERCISE PHYSIOLOGIST): Chronic, stable Managed by cardiology S/p pacemaker Assessment & Plan (05/30/2022 10:12 AM CDT): S/p pacemaker Continue to follow with cardiology Allergic rhinitis 04/25/2021 07/22/2024 Assessment & Plan (07/22/2023 3:29 PM EXERCISE PHYSIOLOGIST): Chronic, stable Asymptomatic Continue to monitor Assessment & Plan (05/30/2022 10:09 AM CDT): Chronic, stable Assessment & Plan (04/25/2021 2:11 PM CDT): Continue flonase Thyroid cancer (CMS/HCC) 04/17/2018 Cardiac arrest 05/27/2016 11/13/2021 Assessment & Plan (04/25/2021 12:15 PM CDT): Continue to follow with Cardiology ICD in place Update me with any changes Assessment & Plan (01/13/2020 1:11 PM CDT): No indication for antiarrhythmics. Continue Inderal as needed for palpitations Assessment & Plan (01/07/2019 3:45 PM CDT): Intraop. Etiology unclear Defibrillator discharge 06/17/20150 11/2020 Encounters Date Type Department Care Team Description 04/04/2025 8:30 AM CDT Office Visit [address] [phone] Angela Garrison PA Myalgia (Primary Dx); Acute right-sided thoracic back pain; Renal cyst; Mixed hyperlipidemia; Statin intolerance; Postoperative hypothyroidism; History of thyroid cancer 03/24/2025 Telephone [facility] of [address] [address] Candi Le MD Med Management 03/22/2025 8:00 AM CDT Office Visit [facility] of [address] [address] Candi Le MD Postoperative hypothyroidism; History of thyroid cancer 03/18/2025 Results Follow-Up [address] [phone] Amarilis Mcfarlane MD Thyroid Function Rachel 03/15/2025 Orders Only [address] [phone] Amarilis Mcfarlane MD Postoperative hypothyroidism 03/15/[address] [phone] Amarilis Mcfarlane MD Labs Only 03/03/2025 9:35 AM CDT Lab [facility] [address] [place] [address] Palpitation 03/03/2025 9:00 AM CDT Office Visit [address] [phone] Christine Katz PA Postoperative hypothyroidism (Primary Dx); History of thyroid cancer; Palpitation 03/03/2025 Results Follow-Up [address] [phone] Christine Katz PA Magnesium, Basic metabolic panel, eGFR 02/24/2025 Results Follow-Up [address] [phone] Christine Katz PA Thyroid Function Rachel 01/28/2025 Orders Only [address] [phone] Amarilis Mcfarlane MD Acute cystitis with hematuria (Primary Dx); Postoperative hypothyroidism 01/25/2025 Results Follow-Up [address] [phone] Amarilis Mcfarlane MD Thyroid Function Rachel from Last 3 Months Immunizations Immunization Administration [...] CAD. Heart attack Mother age 90 of [place] Hypertension Mother Breast cancer Sister Relation Name [...] you have a drink containing alcohol? Never 04/04/2025 Q2: How many drinks containi ng alcohol do you have on a typical day when you are drinking? Patient does not drink Q3: How often do you have si x or more drinks on one occasion? Never 04/04/2025 PHQ-2 Answer Date Recorded PHQ-2 Total Score (If total score is 3 or more points, staff should administer the PHQ-9) 0 04/04/2025 PHQ-9 Answer Date Recorded PHQ-9 Total Score 3 07/22/2024 Comments No Sex and Gender Information Value Date Recorded Sex Assigned at Not on file Legal Sex Female 7:51 AM EXERCISE PHYSIOLOGIST Gender Identity Female 06/06/2023 10:34 AM CDT Sexual Orientation Straight 06/06/2023 10 :34 AM CDT Obstetrics History Para Term AB IAB SAB Ectopic Multiple Livin g Live Births 3 3 3 Date Outcome GA Total Labor Labor/2nd/3rd Weight Sex Type Anes PTL Fela A1 A5 Name Clin Term Term Term Last Filed Vital Signs Vital Sign Reading Time Taken Comments Blood Pressure 110/70 04/04/2025 8:16 AM CDT Pulse 78 04/04/2025 8:16 AM CDT Temperature 36.4 C (97.6 F) 04/04/2025 8:16 AM CDT Respiratory Rate 16 04/04/2025 8:16 AM CDT Oxygen Saturation 98% 04/04/2025 8:16 AM CDT Inhaled Oxygen Concentration - - Weight 75 kg (165 lb 6.4 oz) 04/04/2025 8:16 AM CDT Height 165.1 cm (5' 5) 04/04/2025 8:16 AM CDT Body Mass Index 27.52 04/04/2025 8:16 AM CDT Plan of Treatment Health Maintenance Due Date Last Done Comments Hepatitis B Screening 1973 Zoster Vaccine (1 of 2) 2006 Osteoporosis Screening-Bone Density Scan 02/01/2024 01/31/2022 Covid-19 Vaccine (2023-2 5 season) 2024 09/15/2023, 11/13/2020, 10/17/2020 Influenza Vaccine (#1) 2025 , 06/23/2023, 06/03/2022, Additional history exists Well Visit 65+ 07/22/2025 07/22/2024, 07/09, 07/22/2023, Additional history exists Breast Cancer Screening-Mammogram 12/27/2025 12/27/2024, 07/16/2024, 07/15/2023, Additional history exists Fall Risk Assessment 03/22/2026 03/22/2025, 07/22/2024, 07/22/2023, Additional history exists Depression Screening 04/04/2026 04/04/2025, 03/03/2025, 12/21/2024, Additional history exists Colon Cancer Screening-Colonoscopy 06/27/2031 [...] 10:05 AM CDT History of thyroid cancer HM [...] to Health Maintenance Results * Thyroid Function Rachel (03/17/2025 8:29 AM CDT) TSH 3.69 0.40 - 4.50 mIU/L [facility] Blood 03/17/2025 8:29 AM CDT 03/17/2025 8:30 AM CDT us Amarilis Mcfarlane MD LAB BLOOD ORDERABLE S Final Result [facility] [address] [place] [address] * (ABNORMAL) eGFR (03/03/2025 9:40 AM CDT) [...] reviewed 2021. Testing performed by: [facility], [address] [place] [address], [place]., [address] Blood 03/03/2025 9:40 AM CDT 03/03/2025 10:09 AM CDT us Christine PIZARRO LAB BLOOD ORDERABLES Final Resul t Performing Organization Address [facility] Co de Phone Number [address] [address] * ALT (03/03/2025 9:40 AM CDT) ALT 10 7 - 45 Units/L Comment:Testing performed by : [address] [address] Blood 03/03/2025 9:40 AM CDT 03/03/2025 10:09 AM CDT us Amarilis Mcfarlane MD LAB BLOOD ORDERABLE S Final Result Performing Organization Address [facility] de Phone Number [address] [address] * AST (03/03/2025 9:40 AM CDT) AST 16 10 - 45 Units/L Comment:Testing performed by : [address] [address] Blood 03/03/2025 9:40 AM CDT 03/03/2025 10:09 AM CDT us Amarilis Mcfarlane MD LAB BLOOD ORDERABLE S Final Result Performing Organization Address [facility] de Phone Number [address] [address] * Magnesium (03/03/2025 9:40 AM CDT) Magnesium 2.2 1.4 - 2.5 mg/dL Comment:Testing performed by : [address] [address] Blood 03/03/2025 9:40 AM CDT 03/03/2025 10:09 AM CDT us Christine PIZARRO LAB BLOOD ORDERABLES Final Resul t Performing Organization Address City/[facility] Co de Phone Number [address] [address] * Creatine kinase (CK), total (03/03/2025 9:40 AM CDT) CK 132 30 - 200 Units/L Comment:Testing performed by : [address] [address] Blood 03/03/2025 9:40 AM CDT 03/03/2025 10:09 AM CDT us Amarilis Mcfarlane MD LAB BLOOD ORDERABLE S Final Result Performing Organization Address [facility] Co de Phone Number [address] [address] * (ABNORMAL) Basic metabolic panel (03/03/2025 9:40 AM CDT) Sodium 143 135 - 145 mmol/L Comment:Testing performed by : [address] [address] Potassium, pl 4.3 3.3 - 4.9 mmol/L [facility] Comment:Testing performed by : [address] [address] Chloride 105 97 - 110 mmol/L [facility] Comment:Testing performed by : [address] [address] CO2 28 22 - 32 mmol/L [facility] Comment:Testing performed by : [address] [address] Anion gap 10 2 - 15 mmol/L [facility] Comment:Testing performed by : [address] [address] BUN 19 6 - 25 mg/dL [facility] Comment:Testing performed by : [address] [address] Creatinine 1.08 0.60 - 1.10 mg/dL [facility] Comment:Testing performed by : [address] [address] Glucose 67(L) 70 - 199 mg/dL SHARON [...] was last revised 2022. Testing performed by: [address] [address] Calcium 9.1 8.5 - 10.3 mg/dL [facility] Comment:Testing performed by : [address] [address] Blood 03/03/2025 9:40 AM CDT 03/03/2025 10:09 AM CDT us Christine PIZARRO LAB BLOOD ORDERABLES Final Resul t [facility] [address] [facility] Department [place] [address] * Thyroid Function Rachel (02/23/2025 7:53 AM CDT) TSH 2.25 0.40 - 4.50 mIU/L [facility] Blood 02/23/2025 7:53 AM CDT 02/23/2025 7:53 AM CDT us Amarilis Mcfarlane MD LAB BLOOD ORDERABLE S Final Result [facility] [address] [place] [address] * (ABNORMAL) Thyroid Function Rachel (01/24/2025 10:05 AM CDT) Pathologist [facility] TSH 0.39(L) 0.40 - 4.50 mIU/L [facility] Blood 01/24/2025 10:0 5 AM CDT 01/24/2025 10:05 AM CDT Christine PIZARRO LAB BLOOD ORDERABLES Final Resul t Performing Organization Address [facility]/ZIP Co de Phone Number [facility] [address] [place] [address] * T4, free (01/24/2025 10:05 AM CDT) Pathologist [facility] Free T4 1.7 0.8 - 1.8 ng/dL [facility] 01/24/2025 10:0 5 AM CDT 01/24/2025 10:05 AM CDT Christine PIZARRO LAB BLOOD ORDERABLES Final Resul t Performing Organization Address [facility] de Phone Number [facility] [address] [place] [address] * HM MAMMOGRAPHY (12/27/2024 1:02 PM CDT) Historical Provider HEALTH MAINTENANCE Final Result * Hepatitis C antibody (06/04/2022 9:22 AM CDT) Pathologist [facility] Hep C Ab NON-REACTI VE NON-REACT UMESH [facility] SIGNAL TO CUT-OFF 0.01 <1.00 [facility] Comment: HCV antibody was non-reactive. There is no laboratory evidence of HCV infection. In most cases, no further action is required. However, if recent HCV exposure is suspected, a test for HCV RNA (test code 12040) is suggested. For additional information please refer to http://education.ThinkSmart/faq/MMR03n0 (This link is being provided for informational/ educational purposes only.) Blood 06/04/2022 9:22 AM CDT 06/04/2022 9:25 AM CDT Narrative [facility] - 06/05/2022 10:11 AM CDT FASTING:YES FASTING: YES Amarilis Mcfarlane MD LAB MICROBIOLOGY - GENERAL ORDERABLES Final Result [facility] [address] [place] [address] * Dexa Axial Skeleton Bone Density 1 or 2 Site (01/31/2022 9:03 AM CDT) Anatomical Region Laterality Modality Body N/A Mammography 01/31/2022 3:21 PM CDT Narrative 01/31/2022 3:21 PM CDT EXAM DESCRIPTION: DEXA AXIAL SKELETON BONE DENSITY 1 OR MORE SITES REASON FOR STUDY: 66 y/o year old F with given history of screening. 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 TB: TB Report ID: [id number] Reading Location: [facility] Procedure Note MiddletonAmrita MD - 01/31/2022 EXAM DESCRIPTION: DEXA AXIAL SKELETON BONE DENSITY 1 OR MORE SITES REASON FOR STUDY: 66 y/o year old F with given history ofscreening. 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 TB: TB Report ID: [id number] Reading [facility] Amarilis Mcfarlane MD IMG DXA PROCEDURES Final Result * Colonoscopy (06/27/2021) Anatomical Region Laterality Modality Other Historical Provider ENDOSCOPY PROCEDURES Milagros l Result from Last 3 Months or Most Recently Relevant to Health Maintenance Insurance MEDICARE [facility] MEDICARE [facility] [place] [id number] Care Teams Loan Processor Relationship Specialty Start Date End Date Amarilis Mcfarlane MD [address] [place] [address] PCP - General Family Medicine 06/29/20 Bayron Barclay DO [address] [place] [address] MEDICAL ONCOLOGY, [facility] [address] [place] [address] Medical Oncologist/Public Health Doctor Hematology and Oncology 04/28/23 Christine Katz PA [address] [place] [address] Physician Mail Machine Operator Family Medicine 03/03/25
--- OUTSIDE RECORDS SUMMARY | 2025-04-07 07:03 | XMS_ITS | Referral Summary ---
Author Organization [facility] Address [address] [place] [address] Care Team Providers Care Associate Director Qa Name Role Phone Amarilis Mcfarlane MD Primary Care Provi julito Bayron Barclay DO Unavailable [phone] Christine Katz PA Unavailable Encounters Date Type Department Care Team Description 04/04/2025 8:30 AM CDT Office Visit [facility] Family Medicine [address] [phone] Angela Garrison PA Myalgia (Primary Dx); Acute right-sided thoracic back pain; Renal cyst; Mixed hyperlipidemia; Statin intolerance; Postoperative hypothyroidism; History of thyroid cancer 03/24/2025 Telephone [facility] [address] [address] Candi Le MD Med Management 03/22/2025 8:00 AM CDT Office Visit [facility] [address] [address] Candi Le MD Postoperative hypothyroidism; History of thyroid cancer 03/18/2025 Results Follow-Up [facility] Medicine [address] [phone] Amarilis Mcfarlane MD Thyroid Function Kendall 03/15/2025 Orders Only [address] [phone] Amarilis Mcfarlane MD Postoperative hypothyroidism 03/15/[address] [phone] Amarilis Mcfarlane MD Labs Only 03/03/2025 Results Follow-Up [address] [phone] Christine Katz PA Magnesium, Basic metabolic panel, eGFR 03/03/2025 9:35 AM CDT Lab [facility] [address] [place] [address] Palpitation 03/03/2025 9:00 AM CDT Office Visit [address] [phone] Christine Katz PA Postoperative hypothyroidism (Primary Dx); History of thyroid cancer; Palpitation 02/24/2025 Results Follow-Up [address] [phone] Christine Katz PA Thyroid Function Kendall 01/28/2025 Orders Only [address] [phone] Amarilis Mcfarlane MD Acute cystitis with hematuria (Primary Dx); Postoperative hypothyroidism 01/25/2025 Results Follow-Up [address] [phone] Amarilis Mcfarlane MD Thyroid Function Kendall from Last 3 Months Allergies Active Allergy [...] 1 tablet (88 mcg total) by mouth assistant professor of dietetics before breakfast 90 tablet 1 025 Active [...] 1 tablet (125 mcg total) by mouth assistant professor of dietetics before breakfast Thyroid Function Kendall; Future Erythrocyte sedimentation rate; Future Comprehensive metabolic panel; Future BMI 28.0-28.9,adult 10/04/2024 Assessment & Plan (10/04/2024 2:48 PM RESEARCH PROFESSIONAL): BMI Follow-up includes: education provided. Pericardial effusion [...] (12/08/2024 3:09 PM CDT): Orders: Thyroid Function Kendall; Future Assessment & Plan (11/25/2024 11:51 AM CDT): Orders: Synthroid 125 mcg tablet; Take 1 tablet (125 mcg total) by mouth assistant professor of dietetics before breakfast Thyroid Function Kendall; Future Erythrocyte sedimentation rate; Future Comprehensive metabolic panel; Future Assessment & Plan (10/04/2024 2:50 PM RESEARCH PROFESSIONAL): Chronic. Elevated mildly at last 2 lab checks. - Increase levothyroxine from 100-112 mcg daily - Repeat labs in 6 weeks Tingling in extremities 01/01/2024 Bilateral carpal tunnel syndrome 01/01/2024 Sphincter of Oddi dysfunction 07/22/2023 Overview (07/22/2024): Followed by GI Primary hypertension 05/26/2023 Assessment & Plan (12/08/2024 3:09 PM CDT): Assessment & Plan (10/04/2024 2:52 PM RESEARCH PROFESSIONAL): Chronic. Mostly controlled. Patient's average readings from [...] week. Assessment & Plan (07/22/2023 3:39 PM RESEARCH PROFESSIONAL): Chronic, stabe Continue current regimen Assessment & Plan (06/10/2023 11:28 AM CDT): Chronic, improved Continue losartan Continue clonidine only if needed Continue to follow with Cardiology Update me with any changes Call for questions Low bone mass 05/30/2022 Assessment & Plan (10/04/2024 2:49 PM RESEARCH PROFESSIONAL): Chronic. Discussed recommendation for 500 mg of calcium daily or 3 servings of calcium in diet daily. Discussed recommendation for vitamin-D 1536-3131 international units daily. She may try to get this all from a multivitamin. Assessment & Plan (07/22/2023 3:39 PM RESEARCH PROFESSIONAL): Chronic, stable Continue vitamin d Follow up testing ordered Assessment & Plan (05/30/2022 10:13 AM CDT): Continue vitamin d, calcium Strength training, walking H/O cardiac arrest 11/13/2021 Assessment & Plan (07/22/2023 3:37 PM RESEARCH PROFESSIONAL): Chronic, stable Managed by cardiology Update me with any changes or concerns Assessment & Plan (05/30/2022 10:11 AM CDT): Following with cardiology Other headache syndrome 10/31/2021 Assessment & Plan (07/22/2023 3:39 PM RESEARCH PROFESSIONAL): Acute, resolved Continue to monitor Update me if anything changes or worsens Assessment & Plan (05/30/2022 10:14 AM CDT): Occasional headaches Keep track of headaches Avoid triggers Update me if her symptoms change or worsen Assessment & Plan (10/31/2021 1:02 PM RESEARCH PROFESSIONAL): Differential migraine versus cluster versus other With [...] 05/11/2021 Assessment & Plan (07/22/2023 3:40 PM RESEARCH PROFESSIONAL): Chronic, stable Managed by cardiology S/p ICD placement Assessment & Plan (05/30/2022 10:13 AM CDT): S/p pacemaker Continue to follow with cardiology PVC's (premature ventricular contractions) 05/11 Assessment & Plan (07/22/2023 3:40 PM RESEARCH PROFESSIONAL): Chronic, stable Managed by cardiology Update me with any changes or concerns Assessment & Plan (05/30/2022 10:13 AM CDT): S/p pacemaker Continue to follow with cardiology Nonsustained ventricular tachycardia 05/11/2021 Assessment & Plan (07/22/2023 3:39 PM RESEARCH PROFESSIONAL): Chronic, stable Managed by cardiology S/p ICD placement Assessment & Plan (05/30/2022 10:13 AM CDT): S/p pacemaker Continue to follow with cardiology Family history of heart disease 05/11/2021 Assessment & Plan (07/22/2023 3:29 PM RESEARCH PROFESSIONAL): Chronic, stable Managed by cardiology Continue current regimen Assessment & Plan (05/30/2022 10:10 AM CDT): Chronic, stable Continue to follow with cardiology Encounter for Medicare annual wellness exam 04/08 Overview (07/22/2024): Encouraged healthy diet and activity Please look into a power of asw specialist or living will Health Maintenance: Last mammogram:07/31, 08/01- WNL Last DEXA: 01/27- Low bone mass-ordered Last colonoscopy: 06/28-repeat in 10 years Last Tdap: encouraged Last pneumonia: up to date Last Shingrix: reviewed Last Flu: reviewed Last COVID: reviewed Assessment & Plan (07/22/2024 8:04 AM RESEARCH PROFESSIONAL): Encouraged healthy diet and activity Please look into a power of asw specialist or living will Health Maintenance: Last mammogram:07/31, 08/01- WNL Last DEXA: 01/27- Low bone mass-ordered Last colonoscopy: 06/28-repeat in 10 years Last Tdap: encouraged Last pneumonia: up to date Last Shingrix: reviewed Last Flu: reviewed Last COVID: reviewed Assessment & Plan (07/22/2023 3:28 PM RESEARCH PROFESSIONAL): Encouraged healthy diet and activity Please look into a power of asw specialist or living will Health Maintenance: Last mammogram:07/31- WNL Last DEXA: 01/27- Low bone mass Last colonoscopy: 06/28-repeat in 10 years Last Tdap: encouraged Last pneumonia: up to date Last Shingrix: reviewed Last Flu: reviewed Last COVID: reviewed Assessment & Plan (05/30/2022 10:09 AM CDT): Encouraged healthy diet and activity Please look into a power of asw specialist or living will Health Maintenance: Last mammogram:scheduled Last DEXA: 2020- Low bone mass Last colonoscopy: 06/28-repeat in 10 years Last Tdap: encouraged Last pneumonia: due second one Last Shingrix: reviewed Last Flu: reviewed Last COVID: reviewed Assessment & Plan (04/25/2021 2:08 PM CDT): Encouraged healthy diet and activity Please look into a power of asw specialist or living will Wear sun screen, seat [...] (heartburn) Assessment & Plan (07/22/2023 3:36 PM RESEARCH PROFESSIONAL): Chronic, stable Continue prilosec for now Consider [...] untreated Assessment & Plan (10/31/2021 1:01 PM RESEARCH PROFESSIONAL): With esophagitis and gastritis on her CT scan Continue Prilosec b.i.d. 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 body corporate manager Update me after the visit Assessment & Plan (04/25/2021 12:16 PM CDT): Continue omeprazole Reviewed the risk and benefits of medication Grief 08/01/2020 Assessment & Plan (07/22/2023 3:37 PM RESEARCH PROFESSIONAL): Chronic, stable Continue supportive care Assessment & Plan (05/30/2022 10:11 AM CDT): Improved, doing well with supportive care Assessment & Plan (04/25/2021 12:15 PM CDT): Patient with a significant amount of loss over the last year Continue supportive care Update me if her mood worsens or changes Assessment & Plan (08/01/2020 1:22 PM RESEARCH PROFESSIONAL): Some of her symptoms may be related to her most recent loss- weight loss Continue to use the support around her Update me with any concerns ICD (implantable cardioverter-defibrillator) in place 05/27/2016 Overview (06/19/2022): Medtronic Dual ICD-Evera. Dx; Cardiac Arrest, [place]. DOI 07/18/2014-Dr Bell. [email or web address] remote is not working. Patient prefers office checks Q3 months. Assessment & Plan (11/25/2024 11:51 AM CDT): Orders: CT Coronary Calcium Scoring; Future Assessment & Plan (07/22/2023 3:38 PM RESEARCH PROFESSIONAL): Chronic, stable Managed by cardiology Assessment & [...] Orders: Ambulatory referral to Endocrinology Thyroid Function Kendall; Future Thyroglobulin antibodies; Future Assessment & Plan (03/03/2025 9:16 AM CDT): Orders: Ambulatory referral to Endocrinology; Future Assessment & Plan (12/21/2024 12:26 PM CDT): Assessment & Plan (07/22/2023 3:38 PM RESEARCH PROFESSIONAL): Chronic, stable Managed by oncology Continue to monitor Assessment & Plan (05/30/2022 10:12 AM CDT): Chronic, stable Follows with oncology Continue synthroid Assessment & Plan (04/25/2021 2:10 PM CDT): Continue levothyroxine at current dose Continue to follow with Dr Barclay Resolved Problems Problem Noted Date Diagnosed Date Resolved Date Hypokalemia 06/02/2023 07/22/2024 Assessment & Plan (07/22/2023 3:38 PM RESEARCH PROFESSIONAL): Chronic,s table Continue replacement History of torsades de pointes 05/08/2021 07/22/2024 Assessment & Plan (07/22/2023 3:38 PM RESEARCH PROFESSIONAL): Chronic, stable Managed by cardiology S/p pacemaker Assessment & Plan (05/30/2022 10:12 AM CDT): S/p pacemaker Continue to follow with cardiology Allergic rhinitis 04/25/2021 07/22/2024 Assessment & Plan (07/22/2023 3:29 PM RESEARCH PROFESSIONAL): Chronic, stable Asymptomatic Continue to monitor Assessment [...] on file Legal Sex Female 7:51 AM RESEARCH PROFESSIONAL Gender Identity Female 06/06/2023 10:34 AM CDT [...] 04/04/2025 8:16 AM CDT Plan of Treatment Not on [...] to Health Maintenance Results * Thyroid Function Kendall (03/17/2025 8:29 AM CDT) TSH 3.69 0.40 - 4.50 mIU/L [facility] Blood 03/17/2025 8:29 AM CDT 03/17/2025 8:30 AM CDT us Amarilis Mcfarlane MD LAB BLOOD ORDERABLE S Final Result Object[facility]ica [address] [address] [place] [phone] * (ABNORMAL) eGFR (03/03/2025 9:40 AM CDT) [...] was last reviewed 2021. Testing performed by: [address] [address] Blood 03/03/2025 9:40 AM CDT 03/03/2025 10:09 AM CDT us Christine PIZARRO LAB BLOOD ORDERABLES Final Resul t SHARON [address] [facility] Department [place] [address] * ALT (03/03/2025 9:40 AM CDT) ALT 10 7 - 45 Units/L Comment:Testing performed by : [address] [address] Blood 03/03/2025 9:40 AM CDT 03/03/2025 10:09 AM CDT Amarilis Mcfarlane MD LAB BLOOD ORDERABLE S Final Result Performing Organization Address City/[facility] Co de Phone Number [address] [address] * AST (03/03/2025 9:40 AM CDT) AST 16 10 - 45 Units/L Comment:Testing performed by : [address] [address] Blood 03/03/2025 9:40 AM CDT 03/03/2025 10:09 AM CDT us Amarilis Mcfarlane MD LAB BLOOD ORDERABLE S Final Result Performing Organization Address [facility] Co de Phone Number [address] [address] * Magnesium (03/03/2025 9:40 AM CDT) Pathologist [facility] Magnesium 2.2 1.4 - 2.5 mg/dL Comment:Testing performed by : [address] [address] Blood 03/03/2025 9:40 AM CDT 03/03/2025 10:09 AM CDT us Christine PIZARRO LAB BLOOD ORDERABLES Final Resul t Performing Organization Address [facility] Co de Phone Number [address] [address] * Creatine kinase (CK), total (03/03/2025 9:40 AM CDT) Pathologist [facility] CK 132 30 - 200 Units/L Comment:Testing performed by : [address] [address] Blood 03/03/2025 9:40 AM CDT 03/03/2025 10:09 AM CDT us Amarilis Mcfarlane MD LAB BLOOD ORDERABLE S Final Result SHARON [address] [facility] Department [place] [address] * (ABNORMAL) Basic metabolic panel (03/03/2025 9:40 AM CDT) Sodium 143 135 - 145 mmol/L Comment:Testing performed by : [address] [address] Potassium, pl 4.3 3.3 - 4.9 mmol/L SHARON Comment:Testing performed by : [address] [address] Chloride 105 97 - 110 mmol/L SHARON Comment:Testing performed by : [address] [address] CO2 28 22 - 32 mmol/L SHARON Comment:Testing performed by : [address] [address] Anion gap 10 2 - 15 mmol/L SHARON Comment:Testing performed by : [address] [address] BUN 19 6 - 25 mg/dL SHARON Comment:Testing performed by : [address] [address] Creatinine 1.08 0.60 - 1.10 mg/dL SHARON Comment:Testing performed by : [address] [address] Glucose 67(L) 70 - 199 mg/dL SHARON [...] classification and Diagnosis of Diabetes Diabetes Care 2022; 46: S19-S40. Current interpretive data was last revised 2022. Testing performed by: [facility], [address] [place] [address]., [address] Calcium 9.1 8.5 - 10.3 mg/dL SHARON QUINN Comment:Testing performed by : [facility], [address] [place] [address]., [address] Blood 03/03/2025 9:40 AM CDT 03/03/2025 10:09 AM CDT us Christine PIZARRO LAB BLOOD ORDERABLES Final Resul t Performing Organization Address City/[facility] Co de Phone Number SHARON QUINN [address] [facility] Department [place] [address] * Thyroid Function Kendall (02/23/2025 7:53 AM CDT) TSH 2.25 0.40 - 4.50 mIU/L [facility] Blood 02/23/2025 7:53 AM CDT 02/23/2025 7:53 AM CDT us Amarilis Mcfarlane MD LAB BLOOD ORDERABLE S Final Result Performing Organization Address [facility] Co de Phone Number QUEST [facility] [address] [place] [address] * (ABNORMAL) Thyroid Function Kendall (01/24/2025 10:05 AM CDT) TSH 0.39(L) 0.40 - 4.50 mIU/L [facility] Blood 01/24/2025 10:0 5 AM CDT 01/24/2025 10:05 AM CDT us Christine PIZARRO LAB BLOOD ORDERABLES Final Resul t Performing Organization Address City/[facility] Co de Phone Number QUEST [facility] [address] [place] [address] * T4, free (01/24/2025 10:05 AM CDT) Free T4 1.7 0.8 - 1.8 ng/dL [facility] 01/24/2025 10:0 5 AM CDT 01/24/2025 10:05 AM CDT Christine PIZARRO LAB BLOOD ORDERABLES Final Resul t Performing Organization Address City/[facility]/ZIP Co de Phone Number QUEST [facility] [address] [place] [address] * HM MAMMOGRAPHY (12/27/2024 1:02 PM CDT) Ivonne Merida MD HEALTH MAINTENANCE Final Result * Hepatitis C antibody (06/04/2022 9:22 AM CDT) Pathologist [facility] Hep C Ab NON-REACTI VE NON-REACT UMESH [facility] SIGNAL TO CUT-OFF 0.01 <1.00 [facility] Comment: HCV antibody was non-reactive. There is no laboratory evidence of HCV infection. In most cases, no further action is required. However, if recent HCV exposure is suspected, a test for HCV RNA (test code 49630) is suggested. For additional information please refer to http://education.BuddyTV.Jin-Magic/faq/VVC94e4 (This link is being provided for informational/ educational purposes only.) Blood 06/04/2022 9:22 AM CDT 06/04/2022 9:25 AM CDT Narrative [facility] - 06/05/2022 10:11 AM CDT FASTING:YES FASTING: YES Amarilis Mcfarlane MD LAB MICROBIOLOGY - GENERAL ORDERABLES Final Result PEPE [facility] [address] [facility] [place] [address] * Dexa Axial Skeleton Bone Density 1 or 2 Site (01/31/2022 9:03 AM CDT) Anatomical Region Laterality Modality Body N/A Mammography 01/31/2022 3:21 PM CDT Narrative 01/31/2022 3:21 PM CDT EXAM DESCRIPTION: DEXA AXIAL SKELETON BONE DENSITY 1 OR MORE SITES REASON FOR STUDY: 66 y/o year old F with given history of screening. Patient Financial Counselor/Model: [employer] A (S/N [id number]) CLINICAL INFORMATION: Current height: 65 inches Maximum [...] 3:21 PM - Electronically signed by Amrita HeathD. TB: TB Report ID: [id number] Reading Location: [facility] Procedure Note MiddletonAmrita MD - 01/31/2022 EXAM DESCRIPTION: DEXA AXIAL SKELETON BONE DENSITY 1 OR MORE SITES REASON FOR STUDY: 66 y/o year old F with given history ofscreening. Patient Financial Counselor/Model: [employer] A (S/N [id number]) CLINICAL INFORMATION: Current height: 65 inches Maximum [...] Amrita Dennison M.D. TB: TB Report ID: [id number] Reading Location: [facility] Amarilis Mcfarlane MD IMG DXA PROCEDURES Final Result * Colonoscopy (06/27/2021) Anatomical Region Laterality Modality Other Historical Provider ENDOSCOPY PROCEDURES Milagros l Result from Last 3 Months or Most Recently Relevant to Health Maintenance Insurance MEDICARE [facility] MEDICARE [place] MEDICARE [place] Care Teams Associate Director Qa Relationship Specialty Start Date End Date Amarilis Mcfarlane MD [address] [place] [id number] PCP - General Family Medicine 06/29/20 Bayron Barclay DO [address] [place] [address] MEDICAL ONCOLOGY, [facility] [address] [place] [address] Medical Oncologist/Cycle Touring Guide Hematology and Oncology 04/28/23 Christine Katz PA [address] [place] [address] Physician It Program Engagement Director Family Medicine 03/03/25
--- OUTSIDE RECORDS SUMMARY | 2025-04-07 07:03 | XMS_ITS | Encounter Summary ---
Author Organization [facility] Care Team Providers Care Movie Star Name Role Phone Brielle Mack MD Primary Care Provider Amarilis Mcfarlane MD Primary Care Provi julito Bayron Barclay DO Unavailable [phone] Christine Katz Unavailable Encounter Details Date Type Department Care Team (Latest Contact Info) Description 11/11/2016 Orders Only [facility] CLINCONV Provider, MD Ivonne [address] [place] [address] Social History Tobacco Use Types Packs/Day Years Used Date Smoking Tobacco: Never Assessed Comments Unknown Sex and Gender Information Value Date Recorded Sex Assigned at Not on file Legal Sex Female 7:51 AM MANAGER CORPORATE Gender Identity Female 06/06/2023 10:34 AM CDT Sexual Orientation Straight 06/06/2023 10 :34 AM CDT documented as of this encounter Plan of Treatment Not on file documented as of this encounter Procedures Procedure Name Priority Date/Time Associated Diagnosis Comments CARDIOLOGY REPORT 11/13/2016 12: 00 AM MANAGER CORPORATE documented in this encounter Results * CARDIOLOGY REPORT (11/13/2016 12:00 AM MANAGER CORPORATE) Anatomical Region Laterality Modality Other Narrative 11/13/2016 12:00 AM MANAGER CORPORATE Ordered by an unspecified provider. us Historical Provider [facility] YAMILET ZHANG Final Result documented in this encounter Visit Diagnoses Not on filedocumented in this encounter Additional Health Concerns Infection Onset Date Last Indicated Resolved Time COVID: Suspected 09/13/2021 09/13/2021 09/14/2021 12:34 AM MANAGER CORPORATE COVID: Suspected 05/25/2024 05/25/2024 05/25/2024 9:56 AM CDT documented as of this encounter Care Teams Movie Star Relationship Specialty Start Date End Date Brielle Mack MD PCP - General 10/23/17 06/28/20 Amarilis Mcfarlane MD [address] [place], [place] [phone] PCP - General Family Medicine 06/29/20 Bayron Barclay DO [address] [place] [address] MEDICAL ONCOLOGY, [address] [id number] Medical Oncologist/Labor Utilization Superintendent Hematology and Oncology 04/28/23 Christine Katz PA [address] [place], [place] [phone] Physician Truck Mechanic Apprentice Family Medicine 03/03/25 documented as of this encounter
--- OUTSIDE RECORDS SUMMARY | 2025-04-07 07:03 | XMS_ITS | Clinical Summary ---
Author Organization [facility] Address [address] [place] [address] Care Team Providers Care Process Control Supervisor Name Role Phone Amarilis Mcfarlane MD [...] tablet TAKE 1 TABLET BY MOUTH DAILY PRE K TEACHER BEFORE BREAKFAST Active losartan (COZAAR) 100 MG tablet Take 1 tablet (100 mg total) by mouth daily. 5 Active meclizine (ANTIVERT) 25 MG tablet TAKE 1 TABLET(25 MG) BY MOUTH THREE TIMES DAILY NEEDED FOR DIZZINESS 5 Active omeprazole (PRILOSEC) 20 MG capsule Take 1 capsule (20 mg total) by mouth. 5 Active Active Problems Problem Noted Date Diagnosed Date Paroxysmal ventricular tachycardia ([facility]) 03/06/2025 Overview (03/06/2025): Medtronic Evera DCICD implanted 07/18/2014 for Paroxsymal VT. SSS (sick sinus syndrome) ([facility]/HCC) 12/2024 Overview (12/10/2024): Medtronic Evera ICD implanted 07/18/2014 for SSS Pericardial effusion ([facility]) 08/19/2024 Mixed hyperlipidemia 07/22/2024 Postoperative hypothyroidism 01/01/2024 Tingling in extremities 01/01/2024 Sphincter of Oddi dysfunction 07/22/2023 Overview (11/25/2024): Followed by GI Primary hypertension 05/26/2023 H/O cardiac arrest 11/13/2021 Family history of heart disease 05/11/2021 Nonsustained ventricular tachycardia ([facility] HH S/HCC) 05/11/2021 PVC's (premature ventricular contractions) 05/11 QT prolongation 05/11/2021 GERD (gastroesophageal reflux disease) ICD (implantable cardioverter-defibrillator) in place 05/27/2016 Overview (12/10/2024): Medtronic Evera ICD implanted 07/18/2014 for SSS History of thyroid cancer 06/17/2015 Defibrillator discharge 06/17/2015 Encounters Date Type Department Care Team Description 02/28/2025 Travel 02/27/2025 2:30 PM CDT Allied Health/Nurse Visit [facility] [address] [address] Felix Wild MD Remote Device Check from Last 3 Months Family History Medical History Relation Comments Cancer Brother 1 Lymphoma Diabetes Brother 2 Heart Disease Brother 2 CO Brother 2 Diabetes Brother 3 Diabetes Father Heart Disease Father CO Father Hyperlipidemia Mother Hypertension Mother Stroke Paternal [...] on file Legal Sex Female 3:46 PM CASE ASSEMBLER Gender Identity Not on file Sexual Orientation [...] 05/29/2025 2:25 PM CDT Allied Health/Nurse Visit [email or web address] [address] [place] [address] Felix Wild MD [facility] [address] [place] [address] 05/30/2025 2:40 PM CDT Allied Health/Nurse Visit [email or web address] [address] [place] [address] Felix Wild MD [facility]. [facility] [address] [place] [address] 12/15/2025 9:45 AM CDT Office Visit [facility] [[email or web address] [address] [place] [address] Felix Wild MD [facility]. [facility] [address] [place] [address] Health Maintenance Due Date Last Done Comments [...] this topic Medical Devices Implanted Type Area Director Special Education Device Identifier Shelf Expiration Date Model / Serial / Lot [id number]- Mri-07/18/2014 Implanted:Qty: 1 on 07/18/2014 by Yoan Bell MD ICD MEDTRONIC CARDIAC RHYTHM AND HEART FAILURE - DIV M [id number] / [id number] / Rv Lead [id number] i-07/18/2014 Implanted:Qty: 1 on 07/18/2014 by Yoan Bell MD Lead Implant MEDTRONIC CARDIAC RHYTHM AND HEART FAILURE - DIV M 6944-58 / [id number] / Description:RV-[place] Ra Lead [id number]-Pbw-El i-07/18/2014 Implanted:Qty: 1 on 07/18/2014 by Yoan Bell MD Lead Implant MEDTRONIC CARDIAC RHYTHM AND HEART FAILURE - DIV M 5076-45 / [id number] / Description:RA-Appendage Insurance MEDICARE [employer] Care Teams Process Control Supervisor Relationship Specialty Start Date End Date Amarilis Mcfarlane MD [address] [facility] [address] [place] [address] PCP - General FAMILY PRACTICE 12/09/24
--- OUTSIDE RECORDS SUMMARY | 2025-04-07 07:03 | XMS_ITS | Encounter Summary ---
Author Organization [facility] Healthcare Address [address] [place] [address] Care Team Providers Care Medical Office Manager Name Role Phone Amarilis Mcfarlane MD Primary Care Provi julito Bayron Barclay DO Unavailable [phone] Christine Katz Unavailable Encounter Details Date Type Department Care Team (Late st Contact Info) Description 03/03/2025 Results Follow-Up [facility] Medical Group Family Medicine [address] [address] Christine Katz PA [address] [address] Magnesium, Basic metabolic panel, eGFR [...] on file Legal Sex Female 7:51 AM BATTER DEPOSITOR Gender Identity Female 06/06/2023 10:34 AM CDT [...] on filedocumented in this encounter Care Teams Medical Office Manager Relationship Specialty Start Date End Date Amarilis Mcfarlane MD [address] [place] [address] PCP - General Family Medicine 06/29/20 Bayron Barclay DO [address] [place] [address] MEDICAL ONCOLOGY, [address] [place] [address] Medical Oncologist/Assistant Manager/Embalmer Hematology and Oncology 04/28/23 Christine Katz PA [address] [place] [address] Physician Restaurant Cashier Family Medicine 03/03/25 documented as of this encounter
--- OUTSIDE RECORDS SUMMARY | 2025-04-07 07:03 | XMS_ITS | Clinical Summary ---
Author Organization [facility] Address [address] [place] [address] Care Team Providers Care Picking Supervisor Name Role Phone Brielle Mack MD Primary Care Provider [phone] Source Comments [facility],non-owned Affiliates and Associated Physician Practices is amultiple site organization consisting of ambulatory clinics and hospital sitesin [place], [place], [place] and [place]. This disclosure is being madepursuant to the Care Everywhere program and may not contain all information available regarding this patient. Last updated 18.[facility] Allergies Active Allergy Reactions Criticality Noted Date [...] topic Insurance HEALTHLINK HEALTHLINK MEDICARE Care Teams Picking Supervisor Relationship Specialty Start Date End Date Brielle Mack MD PCP - General Family Medicine 01/08/19
--- OUTSIDE RECORDS SUMMARY | 2025-04-07 07:03 | XMS_ITS | Clinical Summary ---
Author Organization [facility] Care Team Providers Care Winterizer Name Role Phone Unavailable Primary Care Provider Unavailabl e Social History Tobacco Use Types Packs/Day Years Used Date Smoking Tobacco: Never Assessed Comments Unknown Sex and Gender Information Value Date Recorded Sex Assigned at Not on file Legal Sex Female 8:12 AM HISTOPATHOLOGY TECHNICIAN Gender Identity Not on file Sexual Orientation Not on file Plan of Treatment Health Maintenance Due Date Last Done Comments Hepatitis C Virus (HCV) Screening 1955 TdaP Immunization 1955 Cologuard 2001 Colonoscopy 2001 Colorectal Cancer Screening 2001 Immunochemical Fecal Occult Blood 2001 Pneumococcal Immunization (5 0+ years) (1 of 1 - PCV) 2006 Zoster Immunization (1 of 2) 2006 SARS-COV-2 Immunization (3 - season) 2024 11/13/2020, 10/21/2020 Influenza Immunization (#1) 05/09/202506/08, 06/29/2020 Respiratory Syncytial Virus (RSV) Immunization (Adult) (1 - 1-dose 75+ series) 2031 Hepatitis B Immunization Aged Out No longer eligible based on patient's age to complete this topic Human Papillomavirus (HPV) Immunization Aged Out No longer eligible b ased on patient's age to complete this topic Meningococcal Immunization (ACWY) Aged Out No longer eligible b ased on patient's age to complete this topic Rotavirus Immunization Aged Out No lo nger eligible based on patient's age to complete this topic
[2025-04-07 07:23] VITALS: BP 162/93; PULSE 73; RESP 16; TEMP 36.8; O2SAT 97
--- OUTSIDE RECORDS SUMMARY | 2025-04-07 07:30 | XMS_ITS | Clinical Summary ---
Author Organization [facility] Address [address] [place] [address] Care Team Providers Care Speech Pathology Assistant Name Role Phone Amarilis Mcfarlane MD [...] tablet TAKE 1 TABLET BY MOUTH DAILY BANK REPRESENTATIVE BEFORE BREAKFAST Active losartan (COZAAR) 100 MG tablet Take 1 tablet (100 mg total) by mouth daily. 5 Active meclizine (ANTIVERT) 25 MG tablet TAKE 1 TABLET(25 MG) BY MOUTH THREE TIMES DAILY NEEDED FOR DIZZINESS 5 Active omeprazole (PRILOSEC) 20 MG capsule Take 1 capsule (20 mg total) by mouth. 5 Active Active Problems Problem Noted Date Diagnosed Date Paroxysmal ventricular tachycardia ([facility]) 03/06/2025 Overview (03/06/2025): Medtronic Evera DCICD implanted 07/18/2014 for Paroxsymal VT. SSS (sick sinus syndrome) ([facility]/HCC) 12/2024 Overview (12/10/2024): Medtronic Evera ICD implanted 07/18/2014 for SSS Pericardial effusion ([facility]) 08/19/2024 Mixed hyperlipidemia 07/22/2024 Postoperative hypothyroidism 01/01/2024 Tingling in extremities 01/01/2024 Sphincter of Oddi dysfunction 07/22/2023 Overview (11/25/2024): Followed by GI Primary hypertension 05/26/2023 H/O cardiac arrest 11/13/2021 Family history of heart disease 05/11/2021 Nonsustained ventricular tachycardia ([facility] HH S/HCC) 05/11/2021 PVC's (premature ventricular contractions) 05/11 QT prolongation 05/11/2021 GERD (gastroesophageal reflux disease) ICD (implantable cardioverter-defibrillator) in place 05/27/2016 Overview (12/10/2024): Medtronic Evera ICD implanted 07/18/2014 for SSS History of thyroid cancer 06/17/2015 Defibrillator discharge 06/17/2015 Encounters Date Type Department Care Team Description 02/28/2025 Travel 02/27/2025 2:30 PM CDT Allied Health/Nurse Visit [facility] [address] [address] Felix Wild MD Remote Device Check from Last 3 Months Family History Medical History Relation Comments Cancer Brother 1 Lymphoma Diabetes Brother 2 Heart Disease Brother 2 AL Brother 2 Diabetes Brother 3 Diabetes Father Heart Disease Father AL Father Hyperlipidemia Mother Hypertension Mother Stroke Paternal [...] on file Legal Sex Female 3:46 PM ROUTE SERVICE 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 [facility] [address] [place] [address] 05/30/2025 2:40 PM CDT Allied Health/Nurse Visit [facility] [address] [place] [address] Felix Wild MD [facility]. [facility] [address] [place] [address] 12/15/2025 9:45 AM CDT Office Visit [facility] [address] [place] [address] Felix Wild MD [facility]. [facility] [address] [place] [address] Health Maintenance Due Date Last Done Comments [...] this topic Medical Devices Implanted Type Area Case Technician Device Identifier Shelf Expiration Date Model / Serial / Lot [id number]- Mri-07/18/2014 Implanted:Qty: 1 on 07/18/2014 by Yoan Bell MD ICD MEDTRONIC CARDIAC RHYTHM AND HEART FAILURE - DIV M [id number] / [id number] / Rv Lead [id number] i-07/18/2014 Implanted:Qty: 1 on 07/18/2014 by Yoan Bell MD Lead Implant MEDTRONIC CARDIAC RHYTHM AND HEART FAILURE - DIV M 6944-58 / [id number] / Description:RV-[place] Ra Lead [id number] i-07/18/2014 Implanted:Qty: 1 on 07/18/2014 by Yoan Bell MD Lead Implant MEDTRONIC CARDIAC RHYTHM AND HEART FAILURE - DIV M 5076-45 / [id number] / Description:RA-Appendage Insurance MEDICARE Risk I/O Care Teams Speech Pathology Assistant Relationship Specialty Start Date End Date Amarilis Mcfarlane MD [address] [facility] [address] [place] [address] PCP - General FAMILY PRACTICE 12/09/24
--- OUTSIDE RECORDS SUMMARY | 2025-04-07 07:30 | XMS_ITS | Encounter Summary ---
Author Organization [facility] Facility Care Team Providers Care Workforce Management Manager Name Role Phone Brielle Mack MD Primary Care Provider Amarilis Mcfarlane MD Primary Care Provi julito Bayron Barclay DO Unavailable [phone] Christine Katz Unavailable Encounter Details Date Type Department Care Team (Latest Contact Info) Description 12/01/2017 Orders Only [facility] CLINCONV Provider, MD Ivonne [address] [place] [address] Social History Tobacco Use Types Packs/Day Years Used Date Smoking Tobacco: Never Assessed Comments Unknown Sex and Gender Information Value Date Recorded Sex Assigned at Not on file Legal Sex Female 7:51 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 Gender Identity Female 06/06/2023 10:34 AM [...] COVID: Suspected 09/13/2021 09/13/2021 09/14/2021 12:34 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 COVID: Suspected 05/25/2024 05/25/2024 05/25/2024 9:56 AM CDT documented as of this encounter Care Teams Workforce Management Manager Relationship Specialty Start Date End Date Brielle Mack MD PCP - General 10/23/17 06/28/20 Amarilis Mcfarlane MD [address] [place], [place] [phone] PCP - General Family Medicine 06/29/20 Bayron Barclay DO [address] [place] [address] MEDICAL ONCOLOGY, [facility] [address] [place], [place] [id number] Medical Oncologist/Barber Apprentice Hematology and Oncology 04/28/23 Christine Katz PA [address] [place], [place] [phone] Physician Patient Access Director Family Medicine 03/03/25 documented as of this encounter
--- OUTSIDE RECORDS SUMMARY | 2025-04-07 07:30 | XMS_ITS | Encounter Summary ---
Author Organization [facility] Facility Care Team Providers Care Lawn And Tree Service Spray Supervisor Name Role Phone Brielle Mack MD Primary Care Provider Amarilis Mcfarlane MD Primary Care Provi julito Bayron Barclay DO Unavailable [phone] Christine Katz Unavailable Encounter Details Date Type Department Care Team (Latest Contact Info) Description 11/11/2016 Orders Only [facility] CLINCONV Provider, MD Ivonne [address] [place] [address] Social History Tobacco Use Types Packs/Day Years Used Date Smoking Tobacco: Never Assessed Comments Unknown Sex and Gender Information Value Date Recorded Sex Assigned at Not on file Legal Sex Female 7:51 AM HAULAGE ENGINE OPERATOR Gender Identity Female 06/06/2023 10:34 AM CDT Sexual Orientation Straight 06/06/2023 10 :34 AM CDT documented as of this encounter Plan of Treatment Not on file documented as of this encounter Procedures Procedure Name Priority Date/Time Associated Diagnosis Comments CARDIOLOGY REPORT 11/13/2016 12: 00 AM HAULAGE ENGINE OPERATOR documented in this encounter Results * CARDIOLOGY REPORT (11/13/2016 12:00 AM HAULAGE ENGINE OPERATOR) Anatomical Region Laterality Modality Other Narrative 11/13/2016 12:00 AM HAULAGE ENGINE OPERATOR Ordered by an unspecified provider. us Historical Provider [facility] YAMILET ZHANG Final Result documented in this encounter Visit Diagnoses Not on filedocumented in this encounter Additional Health Concerns Infection Onset Date Last Indicated Resolved Time COVID: Suspected 09/13/2021 09/13/2021 09/14/2021 12:34 AM HAULAGE ENGINE OPERATOR COVID: Suspected 05/25/2024 05/25/2024 05/25/2024 9:56 AM CDT documented as of this encounter Care Teams Lawn And Tree Service Spray Supervisor Relationship Specialty Start Date End Date Brielle Mack MD PCP - General 10/23/17 06/28/20 Amarilis Mcfarlane MD [address] [place], [place] [phone] PCP - General Family Medicine 06/29/20 Bayron Barclay DO [address] [place] [address] MEDICAL ONCOLOGY, [address] [phone] Medical Oncologist/Tuckpointer Cleaner Caulker Hematology and Oncology 04/28/23 Christine Katz PA [address] [place], [place] [phone] Physician Mobile Marketing Specialist Family Medicine 03/03/25 documented as of this encounter
--- OUTSIDE RECORDS SUMMARY | 2025-04-07 07:30 | XMS_ITS | Encounter Summary ---
Author Organization [facility] Facility Care Team Providers Care Channel Cementer Insole Machine Name Role Phone Brielle Mack MD Primary Care Provider Amarilis Mcfarlane MD Primary Care Provi julito Bayron Barclay DO Unavailable [phone] Christine Katz Unavailable Encounter Details Date Type Department Care Team (Latest Contact Info) Description 07/02/2017 Orders Only [facility] CLINCONV Provider, MD Ivonne [address] [place] [address] Social History Tobacco Use Types Packs/Day Years Used Date Smoking Tobacco: Never Assessed Comments Unknown Sex and Gender Information Value Date Recorded Sex Assigned at Not on file Legal Sex Female 7:51 AM BRAND COORDINATOR Gender Identity Female 06/06/2023 10:34 AM CDT [...] COVID: Suspected 09/13/2021 09/13/2021 09/14/2021 12:34 AM BRAND COORDINATOR COVID: Suspected 05/25/2024 05/25/2024 05/25/2024 9:56 AM CDT documented as of this encounter Care Teams Channel Cementer Insole Machine Relationship Specialty Start Date End Date Brielle Mack MD PCP - General 10/23/17 06/28/20 Amarilis Mcfarlane MD [address] [place], [place] [phone] PCP - General Family Medicine 06/29/20 Bayron Barclay DO [address] [place] [address] MEDICAL ONCOLOGY, [address] [place], [place] [phone] Medical Oncologist/Buffer Machine Hematology and Oncology 04/28/23 Christine Katz PA [address] [place], [place] [phone] Physician Green Chainer Family Medicine 03/03/25 documented as of this encounter
--- OUTSIDE RECORDS SUMMARY | 2025-04-07 07:30 | XMS_ITS | Encounter Summary ---
Author Organization [facility] Facility Care Team Providers Care Manager Photo Name Role Phone Brielle Mack MD Primary Care Provider Amarilis Mcfarlane MD Primary Care Provi julito Bayron Barclay DO Unavailable [phone] Christine Katz Unavailable Encounter Details Date Type Department Care Team (Latest Contact Info) Description 05/27/2016 Orders Only [facility] CLINCONV Provider, MD Ivonne [address] [place] [address] Social History Tobacco Use Types Packs/Day [...] COVID: Suspected 09/13/2021 09/13/2021 09/14/2021 12:34 AM LINE SERVICE ATTENDANT COVID: Suspected 05/25/2024 05/25/2024 05/25/2024 9:56 AM CDT documented as of this encounter Care Teams Manager Photo Relationship Specialty Start Date End Date Brielle Mack MD PCP - General 10/23/17 06/28/20 Amarilis Mcfarlane MD [address] [place], [place] [address] PCP - General Family Medicine 06/29/20 Bayron Barclay DO [address] [place] [address] MEDICAL ONCOLOGY, [facility] [address] [place], [place] [address] Medical Oncologist/Veterinary Microbiologist Hematology and Oncology 04/28/23 Christine Katz PA [address] [place], [place] [address] Physician Cardiovascular Tech Family Medicine 03/03/25 documented as of this encounter
--- OUTSIDE RECORDS SUMMARY | 2025-04-07 07:30 | XMS_ITS | Encounter Summary ---
Author Organization [facility] Facility Care Team Providers Care Kiln Stoker Name Role Phone Brielle Mack MD Primary Care Provider Amarilis Mcfarlane MD Primary Care Provi julito Bayron Barclay DO Unavailable [phone] Christine Katz Unavailable Encounter Details Date Type Department Care Team (Latest Contact Info) Description 08/29/2016 Orders Only [facility] CLINCONV Provider, MD Ivonne [address] [place] [address] Social History Tobacco Use Types Packs/Day Years Used Date Smoking Tobacco: Never Assessed Comments Unknown Sex and Gender Information Value Date Recorded Sex Assigned at Not on file Legal Sex Female 7:51 AM DIRECTOR CORPORATE SECURITY Gender Identity Female 06/06/2023 10:34 AM CDT Sexual Orientation Straight 06/06/2023 10 :34 AM CDT documented as of this encounter Plan of Treatment Not on file documented as of this encounter Procedures Procedure Name Priority Date/Time Associated Diagnosis Comments CARDIOLOGY REPORT 09/04/2016 12: 00 AM DIRECTOR CORPORATE SECURITY CARDIOLOGY REPORT 08/29/2016 12: 00 AM DIRECTOR CORPORATE SECURITY documented in this encounter Results * CARDIOLOGY REPORT (09/04/2016 12:00 AM DIRECTOR CORPORATE SECURITY) Anatomical Region Laterality Modality Other Narrative 09/04/2016 12:00 AM DIRECTOR CORPORATE SECURITY Ordered by an unspecified provider. us Historical Provider [facility] C[facility]IAC SERVICES PROCE DURES Final Result * CARDIOLOGY REPORT (08/29/2016 12:00 AM DIRECTOR CORPORATE SECURITY) Anatomical Region Laterality Modality Other Narrative 08/29/2016 12:00 AM DIRECTOR CORPORATE SECURITY Ordered by an unspecified provider. us Historical Provider CV CARDIAC SERVICES PROCE DURES Final Result documented in this encounter Visit Diagnoses Not on filedocumented in this encounter Additional Health Concerns Infection Onset Date Last Indicated Resolved Time COVID: Suspected 09/13/2021 09/13/2021 09/14/2021 12:34 AM DIRECTOR CORPORATE SECURITY COVID: Suspected 05/25/2024 05/25/2024 05/25/2024 9:56 AM CDT documented as of this encounter Care Teams Kiln Stoker Relationship Specialty Start Date End Date Brielle Mack MD PCP - General 10/23/17 06/28/20 Amarilis Mcfarlane MD [address] [place], [place] [address] PCP - General Family Medicine 06/29/20 Bayron Barclay DO [address] [place] [address] MEDICAL ONCOLOGY, [facility] [address] [place], [place] [phone] Medical Oncologist/Animal Rides Manager Hematology and Oncology 04/28/23 Christine Katz PA [address] [place], [place] [address] Physician Pupil Personnel Services Director Family Medicine 03/03/25 documented as of this encounter
--- OUTSIDE RECORDS SUMMARY | 2025-04-07 07:30 | XMS_ITS | Clinical Summary ---
Author Organization [facility] Care Team Providers Care Cap Parts Cutter Name Role Phone Unavailable Primary Care Provider Unavailabl e Social History Tobacco Use Types Packs/Day Years Used Date Smoking Tobacco: Never Assessed Comments Unknown Sex and Gender Information Value Date Recorded Sex Assigned at Not on file Legal Sex Female 8:12 AM FRONT COUNTER CLERK Gender Identity Not on file Sexual Orientation [...]
--- OUTSIDE RECORDS SUMMARY | 2025-04-07 07:30 | XMS_ITS | Clinical Summary ---
Author Organization [facility] Address [address] [place] [address] Care Team Providers Care Meal Cook Name Role Phone Brielle Mack MD Primary Care Provider [phone] Source Comments [facility],non-owned Affiliates and Associated Physician Practices is amultiple site organization consisting of ambulatory clinics and hospital sitesin [place], [place], [place] and [place]. This disclosure is being madepursuant to the Care Everywhere program and may not contain all information available regarding this patient. Last updated 18.[facility] Allergies Active Allergy Reactions Criticality Noted Date [...] age to complete this topic Insurance [employer] [facility] Address: [address] [address] [employer] MEDICARE Care Teams Meal Cook Relationship Specialty Start Date End Date Brielle Mack MD PCP - General Family Medicine 01/08/19
--- OUTSIDE RECORDS SUMMARY | 2025-04-07 07:30 | XMS_ITS | Encounter Summary ---
Author Organization [facility] Care Team Providers Care Clark Driver Name Role Phone Brielle Mack MD Primary Care Provider Amarilis Mcfarlane MD Primary Care Provi julito Bayron Barclay DO Unavailable [phone] Christine Katz Unavailable Encounter Details Date Type Department Care Team (Latest Contact Info) Description 02/29/2016 Orders Only [facility]INCONV Provider, MD Ivonne [address] [place] [id number] Social History Tobacco Use Types Packs/Day Years Used Date Smoking Tobacco: Never Assessed Comments Unknown Sex and Gender Information Value Date Recorded Sex Assigned at Not on file Legal Sex Female 7:51 AM SCHEDULER MAINTENANCE Gender Identity Female 06/06/2023 10:34 AM CDT [...] COVID: Suspected 09/13/2021 09/13/2021 09/14/2021 12:34 AM SCHEDULER MAINTENANCE COVID: Suspected 05/25/2024 05/25/2024 05/25/2024 9:56 AM CDT documented as of this encounter Care Teams Clark Driver Relationship Specialty Start Date End Date Brielle Mack MD PCP - General 10/23/17 06/28/20 Amarilis Mcfarlane MD [address] [place], [place] [address] PCP - General Family Medicine 06/29/20 Bayron Barclay DO [address] [place] [address] MEDICAL ONCOLOGY, [facility] [address] [place], [place] [address] Medical Oncologist/Cd Manufacturing Supervisor Hematology and Oncology 04/28/23 Christine Katz PA [address] [place], [place] [address] Physician Certified Technician Specialist Family Medicine 03/03/25 documented as of this encounter
--- OUTSIDE RECORDS SUMMARY | 2025-04-07 07:31 | XMS_ITS | Clinical Summary ---
Author Organization [facility] Address [address] [place] [address] Care Team Providers Care Prop And Scenery Maker Name Role Phone Amarilis Mcfarlane MD Primary Care Provi julito Bayron Barclay DO Unavailable [phone] Christine Katz Unavailable Allergies Active Allergy Reactions [...] 1 tablet (88 mcg total) by mouth school psychological examiner before breakfast 90 tablet 1 025 Active [...] 1 tablet (125 mcg total) by mouth school psychological examiner before breakfast Thyroid Function [place]; Future Erythrocyte sedimentation rate; Future Comprehensive metabolic panel; Future BMI 28.0-28.9,adult 10/04/2024 Assessment & Plan (10/04/2024 2:48 PM LEGAL STENOGRAPHER): BMI Follow-up includes: education provided. Pericardial effusion [...] (12/08/2024 3:09 PM CDT): Orders: Thyroid Function [place]; Future Assessment & Plan (11/25/2024 11:51 AM CDT): Orders: Synthroid 125 mcg tablet; Take 1 tablet (125 mcg total) by mouth school psychological examiner before breakfast Thyroid Function [place]; Future Erythrocyte sedimentation rate; Future Comprehensive metabolic panel; Future Assessment & Plan (10/04/2024 2:50 PM LEGAL STENOGRAPHER): Chronic. Elevated mildly at last 2 lab checks. - Increase levothyroxine from 100-112 mcg daily - Repeat labs in 6 weeks Tingling in extremities 01/01/2024 Bilateral carpal tunnel syndrome 01/01/2024 Sphincter of Oddi dysfunction 07/22/2023 Overview (07/22/2024): Followed by GI Primary hypertension 05/26/2023 Assessment & Plan (12/08/2024 3:09 PM CDT): Assessment & Plan (10/04/2024 2:52 PM LEGAL STENOGRAPHER): Chronic. Mostly controlled. Patient's average readings from [...] week. Assessment & Plan (07/22/2023 3:39 PM LEGAL STENOGRAPHER): Chronic, stabe Continue current regimen Assessment & Plan (06/10/2023 11:28 AM CDT): Chronic, improved Continue losartan Continue clonidine only if needed Continue to follow with Cardiology Update me with any changes Call for questions Low bone mass 05/30/2022 Assessment & Plan (10/04/2024 2:49 PM LEGAL STENOGRAPHER): Chronic. Discussed recommendation for 500 mg of calcium daily or 3 servings of calcium in diet daily. Discussed recommendation for vitamin-D 4779-8467 international units daily. She may try to get this all from a multivitamin. Assessment & Plan (07/22/2023 3:39 PM LEGAL STENOGRAPHER): Chronic, stable Continue vitamin d Follow up testing ordered Assessment & Plan (05/30/2022 10:13 AM CDT): Continue vitamin d, calcium Strength training, walking H/O cardiac arrest 11/13/2021 Assessment & Plan (07/22/2023 3:37 PM LEGAL STENOGRAPHER): Chronic, stable Managed by cardiology Update me with any changes or concerns Assessment & Plan (05/30/2022 10:11 AM CDT): Following with cardiology Other headache syndrome 10/31/2021 Assessment & Plan (07/22/2023 3:39 PM LEGAL STENOGRAPHER): Acute, resolved Continue to monitor Update me if anything changes or worsens Assessment & Plan (05/30/2022 10:14 AM CDT): Occasional headaches Keep track of headaches Avoid triggers Update me if her symptoms change or worsen Assessment & Plan (10/31/2021 1:02 PM LEGAL STENOGRAPHER): Differential migraine versus cluster versus other With [...] 05/11/2021 Assessment & Plan (07/22/2023 3:40 PM LEGAL STENOGRAPHER): Chronic, stable Managed by cardiology S/p ICD placement Assessment & Plan (05/30/2022 10:13 AM CDT): S/p pacemaker Continue to follow with cardiology PVC's (premature ventricular contractions) 05/11 Assessment & Plan (07/22/2023 3:40 PM LEGAL STENOGRAPHER): Chronic, stable Managed by cardiology Update me with any changes or concerns Assessment & Plan (05/30/2022 10:13 AM CDT): S/p pacemaker Continue to follow with cardiology Nonsustained ventricular tachycardia 05/11/2021 Assessment & Plan (07/22/2023 3:39 PM LEGAL STENOGRAPHER): Chronic, stable Managed by cardiology S/p ICD placement Assessment & Plan (05/30/2022 10:13 AM CDT): S/p pacemaker Continue to follow with cardiology Family history of heart disease 05/11/2021 Assessment & Plan (07/22/2023 3:29 PM LEGAL STENOGRAPHER): Chronic, stable Managed by cardiology Continue current regimen Assessment & Plan (05/30/2022 10:10 AM CDT): Chronic, stable Continue to follow with cardiology Encounter for Medicare annual wellness exam 04/08 Overview (07/22/2024): Encouraged healthy diet and activity Please look into a power of health care attorney or living will Health Maintenance: Last mammogram:07/31, 08/01- WNL Last DEXA: 01/27- Low bone mass-ordered Last colonoscopy: 06/28-repeat in 10 years Last Tdap: encouraged Last pneumonia: up to date Last Shingrix: reviewed Last Flu: reviewed Last COVID: reviewed Assessment & Plan (07/22/2024 8:04 AM LEGAL STENOGRAPHER): Encouraged healthy diet and activity Please look into a power of health care attorney or living will Health Maintenance: Last mammogram:07/31, 08/01- WNL Last DEXA: 01/27- Low bone mass-ordered Last colonoscopy: 06/28-repeat in 10 years Last Tdap: encouraged Last pneumonia: up to date Last Shingrix: reviewed Last Flu: reviewed Last COVID: reviewed Assessment & Plan (07/22/2023 3:28 PM LEGAL STENOGRAPHER): Encouraged healthy diet and activity Please look into a power of health care attorney or living will Health Maintenance: Last mammogram:07/31- WNL Last DEXA: 01/27- Low bone mass Last colonoscopy: 06/28-repeat in 10 years Last Tdap: encouraged Last pneumonia: up to date Last Shingrix: reviewed Last Flu: reviewed Last COVID: reviewed Assessment & Plan (05/30/2022 10:09 AM CDT): Encouraged healthy diet and activity Please look into a power of health care attorney or living will Health Maintenance: Last mammogram:scheduled Last DEXA: 2020- Low bone mass Last colonoscopy: 06/28-repeat in 10 years Last Tdap: encouraged Last pneumonia: due second one Last Shingrix: reviewed Last Flu: reviewed Last COVID: reviewed Assessment & Plan (04/25/2021 2:08 PM CDT): Encouraged healthy diet and activity Please look into a power of health care attorney or living will Wear sun screen, [...] (heartburn) Assessment & Plan (07/22/2023 3:36 PM LEGAL STENOGRAPHER): Chronic, stable Continue prilosec for now Consider [...] untreated Assessment & Plan (10/31/2021 1:01 PM LEGAL STENOGRAPHER): With esophagitis and gastritis on her CT scan Continue Prilosec b.i.d. 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 airport ramp agent Update me after the visit Assessment & Plan (04/25/2021 12:16 PM CDT): Continue omeprazole Reviewed the risk and benefits of medication Grief 08/01/2020 Assessment & Plan (07/22/2023 3:37 PM LEGAL STENOGRAPHER): Chronic, stable Continue supportive care Assessment & Plan (05/30/2022 10:11 AM CDT): Improved, doing well with supportive care Assessment & Plan (04/25/2021 12:15 PM CDT): Patient with a significant amount of loss over the last year Continue supportive care Update me if her mood worsens or changes Assessment & Plan (08/01/2020 1:22 PM LEGAL STENOGRAPHER): Some of her symptoms may be related [...] Future Assessment & Plan (07/22/2023 3:38 PM LEGAL STENOGRAPHER): Chronic, stable Managed by cardiology Assessment & [...] Orders: Ambulatory referral to Endocrinology Thyroid Function [place]; Future Thyroglobulin antibodies; Future Assessment & Plan (03/03/2025 9:16 AM CDT): Orders: Ambulatory referral to Endocrinology; Future Assessment & Plan (12/21/2024 12:26 PM CDT): Assessment & Plan (07/22/2023 3:38 PM LEGAL STENOGRAPHER): Chronic, stable Managed by oncology Continue to monitor Assessment & Plan (05/30/2022 10:12 AM CDT): Chronic, stable Follows with oncology Continue synthroid Assessment & Plan (04/25/2021 2:10 PM CDT): Continue levothyroxine at current dose Continue to follow with Dr Barclay Resolved Problems Problem Noted Date Diagnosed Date Resolved Date Hypokalemia 06/02/2023 07/22/2024 Assessment & Plan (07/22/2023 3:38 PM LEGAL STENOGRAPHER): Chronic,s table Continue replacement History of torsades de pointes 05/08/2021 07/22/2024 Assessment & Plan (07/22/2023 3:38 PM LEGAL STENOGRAPHER): Chronic, stable Managed by cardiology S/p pacemaker Assessment & Plan (05/30/2022 10:12 AM CDT): S/p pacemaker Continue to follow with cardiology Allergic rhinitis 04/25/2021 07/22/2024 Assessment & Plan (07/22/2023 3:29 PM LEGAL STENOGRAPHER): Chronic, stable Asymptomatic Continue to monitor Assessment [...] Description 04/04/2025 8:30 AM CDT Office Visit [address] [phone] Angela Garrison PA Myalgia (Primary Dx); Acute right-sided thoracic back pain; Renal cyst; Mixed hyperlipidemia; Statin intolerance; Postoperative hypothyroidism; History of thyroid cancer 03/24/2025 Telephone [facility] Specialists of [address] [address] Candi Le MD Med Management 03/22/2025 8:00 AM CDT Office Visit [facility] Specialists of [address] [address] Candi Le MD Postoperative hypothyroidism; History of thyroid cancer 03/18/2025 Results Follow-Up [address] [phone] Amarilis Mcfarlane MD Thyroid Function [place] 03/15/2025 Orders Only [address] [phone] Amarilis Mcfarlane MD Postoperative hypothyroidism 03/15/[address] [phone] Amarilis Mcfarlane MD Labs Only 03/03/2025 9:35 AM CDT Lab [facility] [address] [place] [address] Palpitation 03/03/2025 9:00 AM CDT Office Visit [address] [phone] Christine Katz PA Postoperative hypothyroidism (Primary Dx); History of thyroid cancer; Palpitation 03/03/2025 Results Follow-Up [address] [phone] Christine Katz PA Magnesium, Basic metabolic panel, eGFR 02/24/2025 Results Follow-Up [address] [phone] Christine Katz PA Thyroid Function [place] 01/28/2025 Orders Only [address] [phone] Amarilis Mcfarlane MD Acute cystitis with hematuria (Primary Dx); Postoperative hypothyroidism 01/25/2025 Results Follow-Up [address] [phone] Amarilis Mcfarlane MD Thyroid Function [place] from Last 3 Months Immunizations Immunization Administration [...] CAD. Heart attack Mother age [address] Hypertension Mother Breast cancer Sister Relation Name [...] on file Legal Sex Female 7:51 AM LEGAL STENOGRAPHER Gender Identity Female 06/06/2023 10:34 AM CDT [...] to Health Maintenance Results * Thyroid Function [place] (03/17/2025 8:29 AM CDT) TSH 3.69 0.40 - 4.50 mIU/L [facility] Blood 03/17/2025 8:29 AM CDT 03/17/2025 8:30 AM CDT us Amarilis Mcfarlane MD LAB BLOOD ORDERABLE S Final Result [facility] [address] [place] [address] * (ABNORMAL) eGFR (03/03/2025 9:40 AM CDT) [...] reviewed 2021. Testing performed by: [facility], [address] [place] [address], [place]., [address] Blood 03/03/2025 9:40 AM CDT 03/03/2025 10:09 AM CDT us Christine PIZARRO LAB BLOOD ORDERABLES Final Resul t Performing Organization Address [facility] Co de Phone Number [address] [address] * ALT (03/03/2025 9:40 AM CDT) ALT 10 7 - 45 Units/L Comment:Testing performed by : [address] [address] Blood 03/03/2025 9:40 AM CDT 03/03/2025 10:09 AM CDT us Amarilis Mcfarlane MD LAB BLOOD ORDERABLE S Final Result Performing Organization Address [facility] de Phone Number [address] [address] * AST (03/03/2025 9:40 AM CDT) AST 16 10 - 45 Units/L Comment:Testing performed by : [address] [address] Blood 03/03/2025 9:40 AM CDT 03/03/2025 10:09 AM CDT us Amarilis Mcfarlane MD LAB BLOOD ORDERABLE S Final Result Performing Organization Address [facility] de Phone Number [address] [address] * Magnesium (03/03/2025 9:40 AM CDT) Magnesium 2.2 1.4 - 2.5 mg/dL Comment:Testing performed by : [address] [address] Blood 03/03/2025 9:40 AM CDT 03/03/2025 10:09 AM CDT us Christine PIZARRO LAB BLOOD ORDERABLES Final Resul t Performing Organization Address [facility] Co de Phone Number [address] [address] * Creatine kinase (CK), total (03/03/2025 9:40 AM CDT) CK 132 30 - 200 Units/L Comment:Testing performed by : [address] [address] Blood 03/03/2025 9:40 AM CDT 03/03/2025 10:09 AM CDT us Amarilis Mcfarlane MD LAB BLOOD ORDERABLE S Final Result Performing Organization Address [facility] Co de Phone Number [address] [address] * (ABNORMAL) Basic metabolic panel (03/03/2025 9:40 AM CDT) Sodium 143 135 - 145 mmol/L Comment:Testing performed by : [address] [address] Potassium, pl 4.3 3.3 - 4.9 mmol/L [facility] Comment:Testing performed by : [address] [address] Chloride 105 97 - 110 mmol/L SH[facility]ON Comment:Testing performed by : [address] [address] CO2 28 22 - 32 mmol/L [facility] Comment:Testing performed by : [address] [address] Anion gap 10 2 - 15 mmol/L [facility]ON Comment:Testing performed by : [address] [address] BUN 19 6 - 25 mg/dL SH[facility]ON Comment:Testing performed by : [address] [address] Creatinine 1.08 0.60 - 1.10 mg/dL [facility]ON Comment:Testing performed by : [address] [address] Glucose 67(L) 70 - 199 mg/dL SHARON [...] was last revised 2022. Testing performed by: [address] [address] Calcium 9.1 8.5 - 10.3 mg/dL [facility] Comment:Testing performed by : [address] [address] Blood 03/03/2025 9:40 AM CDT 03/03/2025 10:09 AM CDT us Christine PIZARRO LAB BLOOD ORDERABLES Final Resul t SH[facility]ON [address] [facility] [place] [address] * Thyroid Function [place] (02/23/2025 7:53 AM CDT) TSH 2.25 0.40 - 4.50 mIU/L [facility] Blood 02/23/2025 7:53 AM CDT 02/23/2025 7:53 AM CDT us Amarilis Mcfarlane MD LAB BLOOD ORDERABLE S Final Result [facility] [address] [place] [phone] * (ABNORMAL) Thyroid Function [place] (01/24/2025 10:05 AM CDT) Pathologist [facility] TSH 0.39(L) 0.40 - 4.50 mIU/L [facility] Blood 01/24/2025 10:0 5 AM CDT 01/24/2025 10:05 AM CDT Christine PIZARRO LAB BLOOD ORDERABLES Final Resul t Performing Organization Address [facility]/ZIP Co de Phone Number [facility] [address] [place] [address] * T4, free (01/24/2025 10:05 AM CDT) Pathologist [facility] Free T4 1.7 0.8 - 1.8 ng/dL [facility] 01/24/2025 10:0 5 AM CDT 01/24/2025 10:05 AM CDT Christine PIZARRO LAB BLOOD ORDERABLES Final Resul t Performing Organization Address [facility] de Phone Number [facility] [address] [place] [address] * HM MAMMOGRAPHY (12/27/2024 1:02 PM CDT) Historical Provider HEALTH MAINTENANCE Final Result * Hepatitis C antibody (06/04/2022 9:22 AM CDT) Pathologist [facility] Hep C Ab NON-REACTI VE NON-REACT UMESH [facility] SIGNAL TO CUT-OFF 0.01 <1.00 [facility] Comment: HCV antibody was non-reactive. There is no laboratory evidence of HCV infection. In most cases, no further action is required. However, if recent HCV exposure is suspected, a test for HCV RNA (test code 09652) is suggested. For additional information please refer to http://education.myJambi/faq/BIW15y1 (This link is being provided for informational/ educational purposes only.) Blood 06/04/2022 9:22 AM CDT 06/04/2022 9:25 AM CDT Narrative [facility] - 06/05/2022 10:11 AM CDT FASTING:YES FASTING: YES Amarilis Mcfarlane MD LAB MICROBIOLOGY - GENERAL ORDERABLES Final Result [facility] [address] [place] [address] * Dexa Axial Skeleton Bone Density 1 or 2 Site (01/31/2022 9:03 AM CDT) Anatomical Region Laterality Modality Body N/A Mammography 01/31/2022 3:21 PM CDT Narrative 01/31/2022 3:21 PM CDT EXAM DESCRIPTION: DEXA AXIAL SKELETON BONE DENSITY 1 OR MORE SITES REASON FOR STUDY: 66 y/o year old F with given history of screening. Purification Director/Model: AppSlingr A (S/N [id number]) CLINICAL INFORMATION: Current height: 65 inches Maximum [...] Amrita Dennison M.D. TB: TB Report ID: [id number] Reading Location: [facility] EMERGENCY [facility]PARTMENT Procedure Note MiddletonAmrita MD - 01/31/2022 EXAM DESCRIPTION: DEXA AXIAL SKELETON BONE DENSITY 1 OR MORE SITES REASON FOR STUDY: 66 y/o year old F with given history ofscreening. Purification Director/Model: Holodscovered A (S/N [id number]) CLINICAL INFORMATION: Current height: 65 inches Maximum [...] Amrita Dennison M.D. TB: TB Report ID: [id number] [facility] Amarilis Mcfarlane MD IMG DXA PROCEDURES Final Result * Colonoscopy (06/27/2021) Anatomical Region Laterality Modality Other Historical Provider ENDOSCOPY PROCEDURES Milagros l Result from Last 3 Months or Most Recently Relevant to Health Maintenance Insurance MEDICARE [facility] MEDICARE [facility] [place] [address] Care Teams Prop And Scenery Maker Relationship Specialty Start Date End Date Amarilis Mcfarlane MD [address] [place] [address] PCP - General Family Medicine 06/29/20 Bayron Barclay DO [address] [place] [address] MEDICAL ONCOLOGY, [facility] [address] [place] [address] Medical Oncologist/Basket Hand Braider Hematology and Oncology 04/28/23 Christine Katz PA [address] [place] [address] Physician Music Composer Family Medicine 03/03/25
--- OUTSIDE RECORDS SUMMARY | 2025-04-07 07:31 | XMS_ITS | Referral Summary ---
Author Organization [facility] Address [address] [place] [address] Care Team Providers Care Mid Level Developer Name Role Phone Amarilis Mcfarlane MD Primary Care Provi julito Bayron Barclay DO Unavailable [phone] Christine Katz PA Unavailable Encounters Date Type Department Care Team Description 04/04/2025 8:30 AM CDT Office Visit [facility] Family Medicine [address] [phone] Angela Garrison PA Myalgia (Primary Dx); Acute right-sided thoracic back pain; Renal cyst; Mixed hyperlipidemia; Statin intolerance; Postoperative hypothyroidism; History of thyroid cancer 03/24/2025 Telephone [facility] Specialists of [address] [address] Candi Le MD Med Management 03/22/2025 8:00 AM CDT Office Visit [facility] Specialists of [address] [address] Candi Le MD Postoperative hypothyroidism; History of thyroid cancer 03/18/2025 Results Follow-Up [facility] Medicine [address] [address] Amarilis Mcfarlane MD Thyroid Function [place] 03/15/2025 Orders Only [address] [phone] Amarilis Mcfarlane MD Postoperative hypothyroidism 03/15/[address] [phone] Amarilis Mcfarlane MD Labs Only 03/03/2025 Results Follow-Up [address] [phone] Christine Katz PA Magnesium, Basic metabolic panel, eGFR 03/03/2025 9:35 AM CDT Lab [facility] [address] [place] [address] Palpitation 03/03/2025 9:00 AM CDT Office Visit [address] [phone] Christine Katz PA Postoperative hypothyroidism (Primary Dx); History of thyroid cancer; Palpitation 02/24/2025 Results Follow-Up [address] [phone] Christine Katz PA Thyroid Function [place] 01/28/2025 Orders Only [address] [address] Amarilis Mcfarlane MD Acute cystitis with hematuria (Primary Dx); Postoperative hypothyroidism 01/25/2025 Results Follow-Up [address] [address] Amarilis Mcfarlane MD Thyroid Function [place] from Last 3 Months Allergies Active Allergy [...] 1 tablet (88 mcg total) by mouth plugging machine operator before breakfast 90 tablet 1 025 Active [...] 1 tablet (125 mcg total) by mouth plugging machine operator before breakfast Thyroid Function [place]; Future Erythrocyte sedimentation rate; Future Comprehensive metabolic panel; Future BMI 28.0-28.9,adult 10/04/2024 Assessment & Plan (10/04/2024 2:48 PM BLOW MOLD OPERATOR): BMI Follow-up includes: education provided. Pericardial [...] (12/08/2024 3:09 PM CDT): Orders: Thyroid Function [place]; Future Assessment & Plan (11/25/2024 11:51 AM CDT): Orders: Synthroid 125 mcg tablet; Take 1 tablet (125 mcg total) by mouth plugging machine operator before breakfast Thyroid Function [place]; Future Erythrocyte sedimentation rate; Future Comprehensive metabolic panel; Future Assessment & Plan (10/04/2024 2:50 PM BLOW MOLD OPERATOR): Chronic. Elevated mildly at last 2 lab checks. - Increase levothyroxine from 100-112 mcg daily - Repeat labs in 6 weeks Tingling in extremities 01/01/2024 Bilateral carpal tunnel syndrome 01/01/2024 Sphincter of Oddi dysfunction 07/22/2023 Overview (07/22/2024): Followed by GI Primary hypertension 05/26/2023 Assessment & Plan (12/08/2024 3:09 PM CDT): Assessment & Plan (10/04/2024 2:52 PM BLOW MOLD OPERATOR): Chronic. Mostly controlled. Patient's average readings [...] week. Assessment & Plan (07/22/2023 3:39 PM BLOW MOLD OPERATOR): Chronic, stabe Continue current regimen Assessment & Plan (06/10/2023 11:28 AM CDT): Chronic, improved Continue losartan Continue clonidine only if needed Continue to follow with Cardiology Update me with any changes Call for questions Low bone mass 05/30/2022 Assessment & Plan (10/04/2024 2:49 PM BLOW MOLD OPERATOR): Chronic. Discussed recommendation for 500 mg of calcium daily or 3 servings of calcium in diet daily. Discussed recommendation for vitamin-D 7714-3171 international units daily. She may try to get this all from a multivitamin. Assessment & Plan (07/22/2023 3:39 PM BLOW MOLD OPERATOR): Chronic, stable Continue vitamin d Follow up testing ordered Assessment & Plan (05/30/2022 10:13 AM CDT): Continue vitamin d, calcium Strength training, walking H/O cardiac arrest 11/13/2021 Assessment & Plan (07/22/2023 3:37 PM BLOW MOLD OPERATOR): Chronic, stable Managed by cardiology Update me with any changes or concerns Assessment & Plan (05/30/2022 10:11 AM CDT): Following with cardiology Other headache syndrome 10/31/2021 Assessment & Plan (07/22/2023 3:39 PM BLOW MOLD OPERATOR): Acute, resolved Continue to monitor Update me if anything changes or worsens Assessment & Plan (05/30/2022 10:14 AM CDT): Occasional headaches Keep track of headaches Avoid triggers Update me if her symptoms change or worsen Assessment & Plan (10/31/2021 1:02 PM BLOW MOLD OPERATOR): Differential migraine versus cluster versus other [...] 05/11/2021 Assessment & Plan (07/22/2023 3:40 PM BLOW MOLD OPERATOR): Chronic, stable Managed by cardiology S/p ICD placement Assessment & Plan (05/30/2022 10:13 AM CDT): S/p pacemaker Continue to follow with cardiology PVC's (premature ventricular contractions) 05/11 Assessment & Plan (07/22/2023 3:40 PM BLOW MOLD OPERATOR): Chronic, stable Managed by cardiology Update me with any changes or concerns Assessment & Plan (05/30/2022 10:13 AM CDT): S/p pacemaker Continue to follow with cardiology Nonsustained ventricular tachycardia 05/11/2021 Assessment & Plan (07/22/2023 3:39 PM BLOW MOLD OPERATOR): Chronic, stable Managed by cardiology S/p ICD placement Assessment & Plan (05/30/2022 10:13 AM CDT): S/p pacemaker Continue to follow with cardiology Family history of heart disease 05/11/2021 Assessment & Plan (07/22/2023 3:29 PM BLOW MOLD OPERATOR): Chronic, stable Managed by cardiology Continue current regimen Assessment & Plan (05/30/2022 10:10 AM CDT): Chronic, stable Continue to follow with cardiology Encounter for Medicare annual wellness exam 04/08 Overview (07/22/2024): Encouraged healthy diet and activity Please look into a power of traffic law attorney or living will Health Maintenance: Last mammogram:07/31, 08/01- WNL Last DEXA: 01/27- Low bone mass-ordered Last colonoscopy: 06/28-repeat in 10 years Last Tdap: encouraged Last pneumonia: up to date Last Shingrix: reviewed Last Flu: reviewed Last COVID: reviewed Assessment & Plan (07/22/2024 8:04 AM BLOW MOLD OPERATOR): Encouraged healthy diet and activity Please look into a power of traffic law attorney or living will Health Maintenance: Last mammogram:07/31, 08/01- WNL Last DEXA: 01/27- Low bone mass-ordered Last colonoscopy: 06/28-repeat in 10 years Last Tdap: encouraged Last pneumonia: up to date Last Shingrix: reviewed Last Flu: reviewed Last COVID: reviewed Assessment & Plan (07/22/2023 3:28 PM BLOW MOLD OPERATOR): Encouraged healthy diet and activity Please look into a power of traffic law attorney or living will Health Maintenance: Last mammogram:07/31- WNL Last DEXA: 01/27- Low bone mass Last colonoscopy: 06/28-repeat in 10 years Last Tdap: encouraged Last pneumonia: up to date Last Shingrix: reviewed Last Flu: reviewed Last COVID: reviewed Assessment & Plan (05/30/2022 10:09 AM CDT): Encouraged healthy diet and activity Please look into a power of traffic law attorney or living will Health Maintenance: Last mammogram:scheduled Last DEXA: 2020- Low bone mass Last colonoscopy: 06/28-repeat in 10 years Last Tdap: encouraged Last pneumonia: due second one Last Shingrix: reviewed Last Flu: reviewed Last COVID: reviewed Assessment & Plan (04/25/2021 2:08 PM CDT): Encouraged healthy diet and activity Please look into a power of traffic law attorney or living will Wear sun screen, [...] (heartburn) Assessment & Plan (07/22/2023 3:36 PM BLOW MOLD OPERATOR): Chronic, stable Continue prilosec for now [...] untreated Assessment & Plan (10/31/2021 1:01 PM BLOW MOLD OPERATOR): With esophagitis and gastritis on her CT scan Continue Prilosec b.i.d. 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 tactical air control party manager Update me after the visit Assessment & Plan (04/25/2021 12:16 PM CDT): Continue omeprazole Reviewed the risk and benefits of medication Grief 08/01/2020 Assessment & Plan (07/22/2023 3:37 PM BLOW MOLD OPERATOR): Chronic, stable Continue supportive care Assessment & Plan (05/30/2022 10:11 AM CDT): Improved, doing well with supportive care Assessment & Plan (04/25/2021 12:15 PM CDT): Patient with a significant amount of loss over the last year Continue supportive care Update me if her mood worsens or changes Assessment & Plan (08/01/2020 1:22 PM BLOW MOLD OPERATOR): Some of her symptoms may be related to her most recent loss- weight loss Continue to use the support around her Update me with any concerns ICD (implantable cardioverter-defibrillator) in place 05/27/2016 Overview (06/19/2022): Medtronic Dual ICD-Evera. Dx; Cardiac Arrest, [place]. DOI 07/18/2014-Dr Bell. [facility] remote is not working. Patient prefers office checks Q3 months. Assessment & Plan (11/25/2024 11:51 AM CDT): Orders: CT Coronary Calcium Scoring; Future Assessment & Plan (07/22/2023 3:38 PM BLOW MOLD OPERATOR): Chronic, stable Managed by cardiology Assessment [...] Orders: Ambulatory referral to Endocrinology Thyroid Function [place]; Future Thyroglobulin antibodies; Future Assessment & Plan (03/03/2025 9:16 AM CDT): Orders: Ambulatory referral to Endocrinology; Future Assessment & Plan (12/21/2024 12:26 PM CDT): Assessment & Plan (07/22/2023 3:38 PM BLOW MOLD OPERATOR): Chronic, stable Managed by oncology Continue to monitor Assessment & Plan (05/30/2022 10:12 AM CDT): Chronic, stable Follows with oncology Continue synthroid Assessment & Plan (04/25/2021 2:10 PM CDT): Continue levothyroxine at current dose Continue to follow with Dr Barclay Resolved Problems Problem Noted Date Diagnosed Date Resolved Date Hypokalemia 06/02/2023 07/22/2024 Assessment & Plan (07/22/2023 3:38 PM BLOW MOLD OPERATOR): Chronic,s table Continue replacement History of torsades de pointes 05/08/2021 07/22/2024 Assessment & Plan (07/22/2023 3:38 PM BLOW MOLD OPERATOR): Chronic, stable Managed by cardiology S/p pacemaker Assessment & Plan (05/30/2022 10:12 AM CDT): S/p pacemaker Continue to follow with cardiology Allergic rhinitis 04/25/2021 07/22/2024 Assessment & Plan (07/22/2023 3:29 PM BLOW MOLD OPERATOR): Chronic, stable Asymptomatic Continue to monitor Assessment & Plan (05/30/2022 10:09 AM CDT): Chronic, stable Assessment & Plan (04/25/2021 2:11 PM CDT): Continue flonase Thyroid cancer ([facility]) 04/17/2018 Cardiac arrest 05/27/2016 11/13/2021 Assessment [...] on file Legal Sex Female 7:51 AM BLOW MOLD OPERATOR Gender Identity Female 06/06/2023 10:34 AM [...] to Health Maintenance Results * Thyroid Function [place] (03/17/2025 8:29 AM CDT) TSH 3.69 0.40 - 4.50 mIU/L [facility] Blood 03/17/2025 8:29 AM CDT 03/17/2025 8:30 AM CDT us Amarilis Mcfarlane MD LAB BLOOD ORDERABLE S Final Result [facility] [address] [address] [place] [address] * (ABNORMAL) eGFR (03/03/2025 9:40 AM CDT) [...] was last reviewed 2021. Testing performed by: [address] [address] Blood 03/03/2025 9:40 AM CDT 03/03/2025 10:09 AM CDT us Christine PIZARRO LAB BLOOD ORDERABLES Final Resul t SHARON [address] [facility] Department [place] [address] * ALT (03/03/2025 9:40 AM CDT) ALT 10 7 - 45 Units/L Comment:Testing performed by : [address] [address] Blood 03/03/2025 9:40 AM CDT 03/03/2025 10:09 AM CDT Amarilis Mcfarlane MD LAB BLOOD ORDERABLE S Final Result Performing Organization Address City/[facility] Co de Phone Number [address] [address] * AST (03/03/2025 9:40 AM CDT) AST 16 10 - 45 Units/L Comment:Testing performed by : [address] [address] Blood 03/03/2025 9:40 AM CDT 03/03/2025 10:09 AM CDT us Amarilis Mcfarlane MD LAB BLOOD ORDERABLE S Final Result Performing Organization Address [facility] Co de Phone Number [address] [address] * Magnesium (03/03/2025 9:40 AM CDT) Pathologist [facility] Magnesium 2.2 1.4 - 2.5 mg/dL Comment:Testing performed by : [address] [address] Blood 03/03/2025 9:40 AM CDT 03/03/2025 10:09 AM CDT us Christine PIZARRO LAB BLOOD ORDERABLES Final Resul t Performing Organization Address [facility] Co de Phone Number [address] [address] * Creatine kinase (CK), total (03/03/2025 9:40 AM CDT) Pathologist [facility] CK 132 30 - 200 Units/L Comment:Testing performed by : [address] [address] Blood 03/03/2025 9:40 AM CDT 03/03/2025 10:09 AM CDT us Amarilis Mcfarlane MD LAB BLOOD ORDERABLE S Final Result SHARON [address] [facility] Department [place] [address] * (ABNORMAL) Basic metabolic panel (03/03/2025 9:40 AM CDT) Sodium 143 135 - 145 mmol/L Comment:Testing performed by : [address] [address] Potassium, pl 4.3 3.3 - 4.9 mmol/L SHARON Comment:Testing performed by : [address] [address] Chloride 105 97 - 110 mmol/L SHARON Comment:Testing performed by : [address] [address] CO2 28 22 - 32 mmol/L SHARON Comment:Testing performed by : [address] [address] Anion gap 10 2 - 15 mmol/L SHARON Comment:Testing performed by : [address] [address] BUN 19 6 - 25 mg/dL SHARON Comment:Testing performed by : [address] [address] Creatinine 1.08 0.60 - 1.10 mg/dL SHARON Comment:Testing performed by : [address] [address] Glucose 67(L) 70 - 199 mg/dL SHARON [...] was last revised 2022. Testing performed by: [facility], [address] [place] [address]., [address] Calcium 9.1 8.5 - 10.3 mg/dL SHARON QUINN Comment:Testing performed by : [facility], [address] [place] [address]., [address] Blood 03/03/2025 9:40 AM CDT 03/03/2025 10:09 AM CDT us Christine PIZARRO LAB BLOOD ORDERABLES Final Resul t Performing Organization Address City/[facility] Co de Phone Number SHARON QUINN [address] [facility] Department [place] [address] * Thyroid Function [place] (02/23/2025 7:53 AM CDT) TSH 2.25 0.40 - 4.50 mIU/L [facility] Blood 02/23/2025 7:53 AM CDT 02/23/2025 7:53 AM CDT us Amarilis Mcfarlane MD LAB BLOOD ORDERABLE S Final Result Performing Organization Address [facility] Co de Phone Number [facility] [address] [place] [address] * (ABNORMAL) Thyroid Function [place] (01/24/2025 10:05 AM CDT) TSH 0.39(L) 0.40 - 4.50 mIU/L [facility] Blood 01/24/2025 10:0 5 AM CDT 01/24/2025 10:05 AM CDT us Christine PIZARRO LAB BLOOD ORDERABLES Final Resul t Performing Organization Address City/[facility] Co de Phone Number [facility] [address] [place] [address] * T4, free (01/24/2025 10:05 AM CDT) Free T4 1.7 0.8 - 1.8 ng/dL [facility] 01/24/2025 10:0 5 AM CDT 01/24/2025 10:05 AM CDT Christine PIZARRO LAB BLOOD ORDERABLES Final Resul t Performing Organization Address City/[facility]/ZIP Co de Phone Number [facility] [address] [place] [address] * HM MAMMOGRAPHY (12/27/2024 1:02 PM CDT) Ivonne Merida MD HEALTH MAINTENANCE Final Result * Hepatitis C antibody (06/04/2022 9:22 AM CDT) Pathologist [facility] Hep C Ab NON-REACTI VE NON-REACT UMESH [facility] SIGNAL TO CUT-OFF 0.01 <1.00 [facility] Comment: HCV antibody was non-reactive. There is no laboratory evidence of HCV infection. In most cases, no further action is required. However, if recent HCV exposure is suspected, a test for HCV RNA (test code 59283) is suggested. For additional information please refer to http://education.[employer] Dispatch.Kiwilogic/faq/NEW80m5 (This link is being provided for informational/ educational purposes only.) Blood 06/04/2022 9:22 AM CDT 06/04/2022 9:25 AM CDT Narrative [facility] - 06/05/2022 10:11 AM CDT FASTING:YES FASTING: YES Amarilis Mcfarlane MD LAB MICROBIOLOGY - GENERAL ORDERABLES Final Result [facility] [address] [facility] [place] [address] * Dexa Axial Skeleton Bone Density 1 or 2 Site (01/31/2022 9:03 AM CDT) Anatomical Region Laterality Modality Body N/A Mammography 01/31/2022 3:21 PM CDT Narrative 01/31/2022 3:21 PM CDT EXAM DESCRIPTION: DEXA AXIAL SKELETON BONE DENSITY 1 OR MORE SITES REASON FOR STUDY: 66 y/o year old F with given history of screening. Component Design Engineer/Model: Amootoon A (S/N [id number]) CLINICAL INFORMATION: Current height: 65 inches Maximum [...] by Amrita HeathD. TB: TB Report ID: [id number] Reading Location: [facility] Procedure Note MiddletonAmrita MD - 01/31/2022 EXAM DESCRIPTION: DEXA AXIAL SKELETON BONE DENSITY 1 OR MORE SITES REASON FOR STUDY: 66 y/o year old F with given history ofscreening. Component Design Engineer/Model: Amootoon A (S/N [id number]) CLINICAL INFORMATION: Current height: 65 inches Maximum [...] Amrita Dennison M.D. TB: TB Report ID: [id number] Reading Location: [facility] Amarilis Mcfarlane MD IMG DXA PROCEDURES Final Result * Colonoscopy (06/27/2021) Anatomical Region Laterality Modality Other Historical Provider ENDOSCOPY PROCEDURES Milagros l Result from Last 3 Months or Most Recently Relevant to Health Maintenance Insurance MEDICARE [facility] MEDICARE [employer] [place] [employer]ICARE [employer] [place] Care Teams Mid Level Developer Relationship Specialty Start Date End Date Amarilis Mcfarlane MD [address] [place] [address] PCP - General Family Medicine 06/29/20 Bayron Barclay DO [address] [place] [address] MEDICAL ONCOLOGY, [facility] [address] [place] [address] Medical Oncologist/Chain Sales Representative Hematology and Oncology 04/28/23 Christine Katz PA [address] [place] [address] Physician Painting Department Supervisor Family Medicine 03/03/25
--- OUTSIDE RECORDS SUMMARY | 2025-04-07 07:31 | XMS_ITS | Encounter Summary ---
Author Organization [facility] Healthcare Address [address] [place] [address] Care Team Providers Care Driver Medic Name Role Phone Amarilis Mcfarlane MD Primary Care Provi julito Bayron Barclay DO Unavailable [phone] Christine Katz Unavailable Encounter Details Date Type Department Care Team (Late st Contact Info) Description 03/03/2025 Results Follow-Up [facility] Family Medicine [address] [address] Christine Katz PA [address] [address] Magnesium, Basic metabolic panel, eGFR [...] file Legal Sex Female 7:51 AM RN LVN Gender Identity Female 06/06/2023 10:34 AM CDT [...] on filedocumented in this encounter Care Teams Driver Medic Relationship Specialty Start Date End Date Amarilis Mcfarlane MD [address] [place] [address] PCP - General Family Medicine 06/29/20 Bayron Barclay DO [address] [place] [address] MEDICAL ONCOLOGY, [facility] [[email or web address] [address] [place] [address] Medical Oncologist/Digital Marketing Program Manager Hematology and Oncology 04/28/23 Christine Katz PA [address] [place] [address] Physician Art Class Model Family Medicine 03/03/25 documented as of this encounter
--- OUTSIDE RECORDS SUMMARY | 2025-04-07 07:31 | XMS_ITS | Encounter Summary ---
Author Organization [facility] Healthcare Address [address] [place] [address] Care Team Providers Care Java Developer Analyst Name Role Phone Amarilis Mcfarlane MD Primary Care Provi julito Bayron Barclay DO Unavailable [phone] Christine Katz Unavailable Encounter Details Date Type Department Care Team (Late st Contact Info) Description 03/18/2025 Results Follow-Up [facility] Family Medicine [address] [phone] Amarilis Mcfarlane MD [address] [address] Thyroid Function Magnet Social History Tobacco Use Types Packs/Day Years [...] on file Legal Sex Female 7:51 AM TUBE BENDING MACHINE OPERATOR Gender Identity Female 06/06/2023 10:34 AM CDT Sexual Orientation Straight 06/06/2023 10 :34 AM CDT documented as of this encounter Plan of Treatment Not on file documented as of this encounter Visit Diagnoses Not on filedocumented in this encounter Care Teams Java Developer Analyst Relationship Specialty Start Date End Date Amarilis Mcfarlane MD [address] [place] [address] PCP - General Family Medicine 06/29/20 Bayron Barclay DO [facility] MEDICAL ONCOLOGY, [facility] [address] [place], [place] [address] Medical Oncologist/Senior Technical Support Analyst Hematology and Oncology 04/28/23 Christine Katz PA [address] [place] [address] Physician Network Systems Integrator Family Medicine 03/03/25 documented as of this encounter
[2025-04-07 07:36] LABS: Hematocrit 41.7 % (37.0-47.0); Hemoglobin 14.0 g/dL (12.0-15.0); Immature Granulocyte Percent A 0.5 % (0-0.5); Lymphocytes Absolute Auto 1.26 K/mm3 (0.9-3.2); Mean Corpuscular HGB Conc 33.6 g/dl (32-36); Mean Corpuscular Hemoglobin 30.4 pg (26-34); Mean Corpuscular Volume 90.7 fl (80-100); Nucleated Red Blood Cells Absolute Auto 0.000 K/mm3 (0.0-0.012); Nucleated Red Blood Cells Perc 0.0 % (0.0-0.2); Platelet Count Result 194 k/mm3 (150-375); Red Blood Count 4.60 M/mm3 (4.2-5.4); White Blood Count 6.1 K/mm3 (4.5-10.0)
--- NOTE | 2025-04-07 07:38 | ED_ITS ---
HPI - General Adult General Chief complaint: Urogenital-Female Stated complaint: flank pain Time Seen by Provider: 04/07/25 07:25 History of Present Illness HPI narrative: Patient is a 70-year-old female who presents ER with flank pain. Ongoing over the last couple of days. Recently treated for UTI. No urinary frequency urgency or dysuria. No fevers or chills or sweats. History of renal cyst that required drainage several months ago. She had follow-up with IR last Friday but missed it because a family member and she need to go to the . She now has follow-up scheduled for May. No alleviating factors. Currently 11/15 and aching. Related Data Home Medications ?Medication ?Instructions ?Recorded ?Confirmed ?Last Taken ?Type potassium chloride 10 mEq 10 meq PO BID 08/30/21 10/26/24 10/26/24 History capsule,extended release cholecalciferol (vitamin D3) 250 2,000 mcg PO DAILY 12/04/21 10/26/24 10/26/24 History mcg (10,000 unit) capsule cyanocobalamin (vitamin B-12) 50 50 mcg PO DAILY 01/02/24 10/26/24 10/26/24 History mcg tablet omeprazole 20 mg capsule,delayed 20 mg PO DAILY PRN nausea 01/02/24 10/26/24 Unknown History release losartan 100 mg tablet 100 mg PO BID 06/25/24 10/26/24 10/26/24 History clonidine HCl 0.1 mg tablet 0.1 mg PO .prn 08/26/24 10/26/24 Unknown History dicyclomine 10 mg capsule 10 mg PO .prn abdominal discomfort 08/26/24 10/26/24 Unknown History meclizine 25 mg tablet 25 mg PO .prn Nausea 08/26/24 10/26/24 Unknown History atorvastatin 20 mg tablet 10 mg PO QPM 10/26/24 10/26/24 10/26/24 History levothyroxine 88 mcg tablet mcg 03/25/25 Unknown History (Synthroid) Allergies Allergy/AdvReac Type Severity Reaction Status Date / Time diphenhydramine (From AdvReac Severe Palpitation Verified 03/25/25 17:10 Benadryl) s erythromycin base AdvReac Severe Palpitation Verified 03/25/25 17:10 s anything prolongs QT AdvReac Unknown Uncoded 12/27/24 08:39 PMFSH Past Medical History Medical History Diarrhea Calculus of cystic duct without obstruction Rectal bleeding Abdominal pain Abnormal CT of the abdomen Neck pain Gastroesophageal reflux disease QT prolongation ICD (implantable cardioverter-defibrillator) battery depletion Torsades de pointes TMJ (dislocation of temporomandibular joint) GERD (gastroesophageal reflux disease) Thyroid cancer Surgical History Surgical History History of sphincterotomy of sphincter of Oddi Hx of cholecystectomy History of appendectomy Social History Social History Smoking status: Never smoker Alcohol intake: never Substance use: never Living arrangements: with family Gender identity (if verbalized by the patient): Female Spiritual care concerns: No Exam 2 Narrative: GENERAL: Well-appearing, well-nourished, and in no acute distress. HEAD: Normocephalic, atraumatic. ENT: Mucous membranes moist. CHEST: Clear to auscultation. No respiratory distress. HEART: Regular rate and rhythm. Normal peripheral pulses. ABDOMEN: Soft, nontender, nondistended. Right CVA tenderness EXTREMITIES: Normal range of motion. No edema. SKIN: Warm, dry, no rash. NEURO: Alert and oriented x3. PSYCH: Normal mood and affect. Course Course Emergency Course: Patient educated on imaging and lab findings. Suspect she has pain from her renal cyst. We will provide her with a disc to take to her interventional radiologist so she can hopefully get it drained soon. Vital Signs Vital signs: Vital Signs Temperature 98.2 F 04/07/25 07:23 Pulse Rate 73 04/07/25 07:23 Respiratory Rate 16 04/07/25 07:23 Blood Pressure 162/93 H 04/07/25 07:23 Pulse Oximetry 97 04/07/25 07:23 Oxygen Delivery Room Air 04/07/25 07:23 Temperature 98.2 F 04/07/25 07:23 Pulse Rate 73 04/07/25 07:23 Respiratory Rate 16 04/07/25 07:23 Blood Pressure 162/93 H 04/07/25 07:23 Pulse Oximetry 97 04/07/25 07:23 Oxygen Delivery Room Air 04/07/25 07:23 Medical Decision Making Vital Signs Vital Signs: Vital Signs Temperature 98.2 F 04/07/25 07:23 Pulse Rate 73 04/07/25 07:23 Respiratory Rate 16 04/07/25 07:23 Blood Pressure 162/93 H 04/07/25 07:23 Pulse Oximetry 97 04/07/25 07:23 Oxygen Delivery Room Air 04/07/25 07:23 Temperature 98.2 F 04/07/25 07:23 Pulse Rate 73 04/07/25 07:23 Respiratory Rate 16 04/07/25 07:23 Blood Pressure 162/93 H 04/07/25 07:23 Pulse Oximetry 97 04/07/25 07:23 Oxygen Delivery Room Air 04/07/25 07:23 Lab Data 04/07/25 07:31 04/07/25 07:31 Labs: Lab Results 04/07/25 04/07/25 Range/Units 07:31 09:03 WBC 6.1 (4.5-10.0) K/mm3 RBC 4.60 (4.2-5.4) M/mm3 Hgb 14.0 (12.0-15.0) g/dL Hct 41.7 (37.0-47.0) % MCV 90.7 (80-100) fl MCH 30.4 (26-34) pg MCHC 33.6 (32-36) g/dl RDW 12.6 (11.5-14.5) % Plt Count 194 (150-375) k/mm3 MPV 10.4 (7.4-10.4) fl Immature Gran % (Auto) 0.5 (0-0.5) % Neut % (Auto) 68.9 (45.5-73.1) % Lymph % (Auto) 20.8 (18.3-44.2) % [place] % (Auto) 7.1 (2.6-8.5) % Eos % (Auto) 2.0 (0-4.4) % Baso % (Auto) 0.7 (0.2-1.2) % Lymph # (Auto) 1.26 (0.9-3.2) K/mm3 [place] # (Auto) 0.4 (0.1-0.6) K/mm3 Eos # (Auto) 0.1 (0-0.3) K/mm3 Baso # (Auto) 0.0 (0.0-0.1) K/mm3 Abs Immat Gran (auto) 0.03 (0.00-0.031) K/mm3 Absolute Neuts (auto) 4.2 (1.3-6.7) K/mm3 Absolute Nucleated RBC 0.000 (0.0-0.012) K/mm3 Nucleated RBC % 0.0 (0.0-0.2) % Sodium 141 (137-145) mmol/L Potassium 3.5 (3.4-5.0) mmol/L Chloride 108 H (98-107) mmol/L Carbon Dioxide 25 (22-30) mmol/L Anion Gap 8 (4-12) mmol/L BUN 14 (7-17) mg/dL Creatinine 0.97 (0.7-1.0) mg/dL Estim Creat Clear Calc 45 ml/min Estimated GFR 57 L (59 - ) Glucose 96 (65-110) mg/dL Calcium 8.5 (8.4-10.2) mg/dL Total Bilirubin 0.8 (0.2-1.3) mg/dL AST 27 (14-36) U/L ALT 16 (6-35) U/L Alkaline Phosphatase 76 (38-126) U/L Total Protein 7.3 (6.3-8.2) g/dL Albumin 4.3 (3.5-5.1) g/dL Lipase 117 (23-300) U/L Urine Color Yellow (Yellow) Urine Appearance Clear (Clear) Urine pH 8.0 (5.0-9.0) Ur Specific [place] 1.010 (1.001-1.035) Urine Protein Negative (Negative) mg/dL Urine Glucose (UA) Negative (Negative) mg/dL Urine Ketones Negative (Negative) mg/dL Ur Blood (Man) Negative (Negative) Urine Nitrate Negative (Negative) Urine Bilirubin Negative (Negative) Urine Urobilinogen 0.2 (<2.0) mg/dL Leukocyte Esterase Rfl Negative (Negative) SARTHAK/UL Discharge Plan Discharge Clinical Impression: Renal cyst Patient Disposition: Home Condition: Stable Instructions: Kidney Cyst (ED) Additional Instructions: Your renal cyst has enlarged and currently measures 76 x 76 x 85 mm (anterior to posterior x medial to lateral x cranial to caudal dimension). It is recommended you follow-up with your interventional radiologist to discuss possible drainage since her having discomfort. Take Tylenol or ibuprofen as needed for pain. Return to the ER if you have any additional concerns. Patient Language: Togolese Prescriptions: No Action potassium chloride 10 mEq capsule, extended release 10 meq PO BID nitrofurantoin monohyd/m-cryst [Macrobid] 100 mg capsule 100 mg PO Q12H 5 Days Qty: 10 0RF Rx Instructions: must administer with a meal/food levothyroxine [Synthroid] 88 mcg tablet amoxicillin-pot clavulanate 875-125 mg tablet 1 tablet PO Q12H Qty: 14 0RF meclizine 25 mg tablet 25 mg PO .prn omeprazole 20 mg capsule,delayed release(DR/EC) 20 mg PO DAILY PRN (Reason: nausea) cyanocobalamin (vitamin B-12) 50 mcg Tablet 50 mcg PO DAILY losartan 100 mg tablet 100 mg PO BID dicyclomine 10 mg capsule 10 mg PO .prn clonidine HCl 0.1 mg tablet 0.1 mg PO .prn cholecalciferol (vitamin D3) 250 mcg (10,000 unit) capsule 2,000 mcg PO DAILY atorvastatin 20 mg tablet 10 mg PO QPM Follow-up/Referrals: Maeve,MD Amarilis [Primary Care Provider] - 1 Week
[2025-04-07 07:58] LABS: Alanine Aminotransferase 16 U/L (6-35); Albumin Level 4.3 g/dL (3.5-5.1); Alkaline Phosphatase 76 U/L (38-126); Anion Gap 8 mmol/L (4-12); Aspartate Amino Transferase 27 U/L (14-36); Bilirubin,Total 0.8 mg/dL (0.2-1.3); Blood Urea Nitrogen 14 mg/dL (7-17); Calcium 8.5 mg/dL (8.4-10.2); Carbon Dioxide 25 mmol/L (22-30); Chloride 108 mmol/L (98-107); Estimated CRCL calculation 45 ml/min; Estimated Glomerular Filt Rate 57; Glucose 96 mg/dL (65-110); Lipase 117 U/L (23-300); Potassium 3.5 mmol/L (3.4-5.0); Sodium 141 mmol/L (137-145); Total Protein 7.3 g/dL (6.3-8.2)
--- NOTE | 2025-04-07 08:24 | PC.NURSE ---
patient declines straight cath at this time, states she can provide a urine sample just not right now
[2025-04-07 09:23] LABS: Add Urine Microscopic? NO; Appearance Urine Clear (Clear); Glucose Urine UA Negative (Negative); Leukocyte Esterase Ur Negative LEU/UL (Negative); Nitrate Urine Negative (Negative); Specific Grav Ur 1.010 (1.001-1.035)
[2025-04-07 11:36] VITALS: BP 147/81; PULSE 89; RESP 16; TEMP 36.7; O2SAT 98
== END 2025-04-07 11:50 | disposition home or self-care (01) ==
PROVIDERS: Emergency Provider Emergency Medicine; PCP Family Medicine
DX: N28.1 Cyst of kidney, acquired (principal); K21.9 Gastro-esophageal reflux disease without esophagitis; Z85.850 Personal history of malignant neoplasm of thyroid; Z90.49 Acquired absence of other specified parts of digestive tract
CPT/HCPCS: 36415; 74176; 80053; 81003; 83690; 85025; 99284

== ENCOUNTER 2025-04-18 14:16 | Outpatient (CLI) | payer MEDICARE, OTHER, SELFPAY ==
--- OUTSIDE RECORDS SUMMARY | 2025-04-18 14:37 | XMS_ITS | Clinical Summary ---
Author Organization [facility] [employer] Address [address] [place] [address] Care Team Providers Care Qi Specialist Name Role Phone Brielle Mack MD Primary Care Provider [phone] Source Comments [facility],non-owned Affiliates and Associated Physician Practices is amultiple site organization consisting of ambulatory clinics and hospital sitesin [place], [place], [place] and [place]. This disclosure is being madepursuant to the Care Everywhere program and may not contain all information available regarding this patient. Last updated 18.[facility] Allergies Active Allergy Reactions Criticality Noted Date [...] age to complete this topic [place] [facility] [place] [address] [phone] [employer] Care Teams Qi Specialist Relationship Specialty Start Date End Date Brielle Mack MD PCP - General Family Medicine 01/08/19
--- OUTSIDE RECORDS SUMMARY | 2025-04-18 14:37 | XMS_ITS | Clinical Summary ---
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
--- OUTSIDE RECORDS SUMMARY | 2025-04-18 14:37 | XMS_ITS | Encounter Summary ---
Author Organization [facility] Care Team Providers Care Harness Worker Name Role Phone Brielle Mack MD Primary Care Provider Amarilis Mcfarlane MD Primary Care Provi julito Bayron Barclay DO Unavailable [phone] Christine Katz Unavailable Encounter Details Date Type Department Care Team (Latest Contact Info) Description 02/29/2016 Orders Only [facility]INCONV Provider, MD Ivonne [address] [place] [id number] Social History Tobacco Use Types Packs/Day Years Used Date Smoking Tobacco: Never Assessed Comments Unknown Sex and Gender Information Value Date Recorded Sex Assigned at Not on file 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 Gender Identity Female 06/06/2023 10:34 AM CDT [...] COVID: Suspected 09/13/2021 09/13/2021 09/14/2021 12:34 AM PRICING SUPERVISOR COVID: Suspected 05/25/2024 05/25/2024 05/25/2024 9:56 AM CDT documented as of this encounter Care Teams Harness Worker Relationship Specialty Start Date End Date Brielle Mack MD PCP - General 10/23/17 06/28/20 Amarilis Mcfarlane MD [address] [place], [place] [id number] PCP - General Family Medicine 06/29/20 Bayron Barclay DO [address] [place] [address] MEDICAL ONCOLOGY, [facility] [address] [place], [place] [address] Medical Oncologist/Perinatal Tech Hematology and Oncology 04/28/23 Christine Katz PA [address] [place], [place] [address] Physician Production Hardener Family Medicine 03/03/25 documented as of this encounter
--- OUTSIDE RECORDS SUMMARY | 2025-04-18 14:37 | XMS_ITS | Encounter Summary ---
Author Organization [facility] Address [address] [place] [address] Care Team Providers Care Spanish Teacher Name Role Phone Amarilis Mcfarlane MD Primary Care Provi julito Bayron Barclay DO Unavailable [phone] Christine Katz Unavailable Encounter Details Date Type Department Care Team (Late st Contact Info) Description 03/18/2025 Results Follow-Up [facility] Family Medicine [address] [phone] Amarilis Mcfarlane MD [address] [address] Thyroid Function [place] Social History Tobacco Use Types Packs/Day Years [...] on file 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 Gender Identity Female 06/06/2023 10:34 AM CDT Sexual Orientation Straight 06/06/2023 10 :34 AM CDT documented as of this encounter Plan of Treatment Not on file documented as of this encounter Visit Diagnoses Not on filedocumented in this encounter Care Teams Spanish Teacher Relationship Specialty Start Date End Date Amarilis Mcfarlane MD [address] [place] [address] PCP - General Family Medicine 06/29/20 Bayron Barclay DO [facility] MEDICAL ONCOLOGY, [facility] [address] [place], [place] [id number] Medical Oncologist/Commercial Escrow Assistant Hematology and Oncology 04/28/23 Christine Katz PA [address] [place] [address] Physician Weed Thinner Family Medicine 03/03/25 documented as of this encounter
--- OUTSIDE RECORDS SUMMARY | 2025-04-18 14:37 | XMS_ITS | Clinical Summary ---
Author Organization [facility] Address [address] [place] [address] Care Team Providers Care Travel Rn Or Name Role Phone Amarilis Mcfarlane MD Primary Care Provi julito Bayron Barclay DO Unavailable [phone] Christine Katz Unavailable Allergies Active Allergy Reactions Criticality Noted Date Comments Sulfasalazine Other (See comments) Low 06/17/2015 Episodes of Torsads - Prologs the QT interval Medications miscellaneous medical supply (Blood Pressure Cuff) miscIndications:E [...] 0.1 mg oral Daily PRN, Reported on 04/14/2025 meclizine (ANTIVERT) 25 mg tablet TAKE 1 TABLET(25 MG) BY MOUTH THREE TIMES DAILY NEEDED FOR DIZZINESS 30 tablet 025 Active Additional Information Patient taking differently: 25 mg oral 3 times daily PRN, Reported on 04/14/2025 famotidine (PEPCID) 20 mg tablet Take 1 tablet (20 mg total) by mouth 2 (two) times a day as needed for heartburn Active losartan (COZAAR) 100 mg tabletIndications :Primary hypertension Take 1 tablet (100 mg total) by mouth daily 90 tablet 2 025 Active levothyroxine (Synthroid) 88 mcg tabletIndications :Postoperative hypothyroidism Take 1 tablet (88 mcg total) by mouth calender tender before breakfast 90 tablet 1 025 Active potassium chloride ER 10 mEq CR tabletIndications :ICD (implantable cardioverter-defi brillator) in place TAKE 1 CAPSULE(10 MEQ) BY MOUTH TWICE DAILY 200 tablet/caps ule 1 025 Active Additional Information Patient taking differently: 10 mEq oral Daily, Reported on 04/14/2025 levothyroxine (SYNTHROID) 88 mcg tablet Take 0.5 tablets (44 mcg total) by mouth once a week Active cholecalciferol (VITAMIN D-3) 2000 unit capsule Take 0.5 capsules (1,000 Units total) by mouth 3 (three) times a week 2024 Discontinued(T herapy completed) potassium chloride ER 10 mEq CR tabletIndications :ICD (implantable cardioverter-defi brillator) in place Take 1 tablet/capsule (10 mEq total) by mouth daily 90 tablet/caps ule 1 024 2024 Discontinued omeprazole (PriLOSEC) 20 mg capsuleIndication s:Gastroesophagea l reflux disease without esophagitis Take 1 capsule (20 mg total) by mouth daily as needed (heartburn) 025 2024 Discontinued(T herapy completed) Active Problems Problem [...] 1 tablet (125 mcg total) by mouth calender tender before breakfast Thyroid Function [place]; Future Erythrocyte sedimentation rate; Future Comprehensive metabolic panel; Future BMI 28.0-28.9,adult 10/04/2024 Assessment & Plan (10/04/2024 2:48 PM SPINDLE CARVER): BMI Follow-up includes: education provided. Pericardial effusion [...] (12/08/2024 3:09 PM CDT): Orders: Thyroid Function [place]; Future Assessment & Plan (11/25/2024 11:51 AM CDT): Orders: Synthroid 125 mcg tablet; Take 1 tablet (125 mcg total) by mouth calender tender before breakfast Thyroid Function [place]; Future Erythrocyte sedimentation rate; Future Comprehensive metabolic panel; Future Assessment & Plan (10/04/2024 2:50 PM SPINDLE CARVER): Chronic. Elevated mildly at last 2 lab checks. - Increase levothyroxine from 100-112 mcg daily - Repeat labs in 6 weeks Tingling in extremities 01/01/2024 Bilateral carpal tunnel syndrome 01/01/2024 Sphincter of Oddi dysfunction 07/22/2023 Overview (07/22/2024): Followed by GI Primary hypertension 05/26/2023 Assessment & Plan (12/08/2024 3:09 PM CDT): Assessment & Plan (10/04/2024 2:52 PM SPINDLE CARVER): Chronic. Mostly controlled. Patient's average readings from [...] week. Assessment & Plan (07/22/2023 3:39 PM SPINDLE CARVER): Chronic, stabe Continue current regimen Assessment & Plan (06/10/2023 11:28 AM CDT): Chronic, improved Continue losartan Continue clonidine only if needed Continue to follow with Cardiology Update me with any changes Call for questions Low bone mass 05/30/2022 Assessment & Plan (10/04/2024 2:49 PM SPINDLE CARVER): Chronic. Discussed recommendation for 500 mg of calcium daily or 3 servings of calcium in diet daily. Discussed recommendation for vitamin-D 9345-1866 international units daily. She may try to get this all from a multivitamin. Assessment & Plan (07/22/2023 3:39 PM SPINDLE CARVER): Chronic, stable Continue vitamin d Follow up testing ordered Assessment & Plan (05/30/2022 10:13 AM CDT): Continue vitamin d, calcium Strength training, walking H/O cardiac arrest 11/13/2021 Assessment & Plan (07/22/2023 3:37 PM SPINDLE CARVER): Chronic, stable Managed by cardiology Update me with any changes or concerns Assessment & Plan (05/30/2022 10:11 AM CDT): Following with cardiology Other headache syndrome 10/31/2021 Assessment & Plan (07/22/2023 3:39 PM SPINDLE CARVER): Acute, resolved Continue to monitor Update me if anything changes or worsens Assessment & Plan (05/30/2022 10:14 AM CDT): Occasional headaches Keep track of headaches Avoid triggers Update me if her symptoms change or worsen Assessment & Plan (10/31/2021 1:02 PM SPINDLE CARVER): Differential migraine versus cluster versus other With [...] 05/11/2021 Assessment & Plan (07/22/2023 3:40 PM SPINDLE CARVER): Chronic, stable Managed by cardiology S/p ICD placement Assessment & Plan (05/30/2022 10:13 AM CDT): S/p pacemaker Continue to follow with cardiology PVC's (premature ventricular contractions) 05/11 Assessment & Plan (07/22/2023 3:40 PM SPINDLE CARVER): Chronic, stable Managed by cardiology Update me with any changes or concerns Assessment & Plan (05/30/2022 10:13 AM CDT): S/p pacemaker Continue to follow with cardiology Nonsustained ventricular tachycardia 05/11/2021 Assessment & Plan (07/22/2023 3:39 PM SPINDLE CARVER): Chronic, stable Managed by cardiology S/p ICD placement Assessment & Plan (05/30/2022 10:13 AM CDT): S/p pacemaker Continue to follow with cardiology Family history of heart disease 05/11/2021 Assessment & Plan (07/22/2023 3:29 PM SPINDLE CARVER): Chronic, stable Managed by cardiology Continue current [...] reviewed Assessment & Plan (07/22/2024 8:04 AM SPINDLE CARVER): Encouraged healthy diet and activity Please look into a power of environmental attorney or living will Health Maintenance: Last mammogram:07/31, 08/01- WNL Last DEXA: 01/27- Low bone mass-ordered Last colonoscopy: 06/28-repeat in 10 years Last Tdap: encouraged Last pneumonia: up to date Last Shingrix: reviewed Last Flu: reviewed Last COVID: reviewed Assessment & Plan (07/22/2023 3:28 PM SPINDLE CARVER): Encouraged healthy diet and activity Please look [...] (heartburn) Assessment & Plan (07/22/2023 3:36 PM SPINDLE CARVER): Chronic, stable Continue prilosec for now Consider [...] untreated Assessment & Plan (10/31/2021 1:01 PM SPINDLE CARVER): With esophagitis and gastritis on her CT scan Continue Prilosec b.i.d. 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 box nailer Update me after the visit Assessment & Plan (04/25/2021 12:16 PM CDT): Continue omeprazole Reviewed the risk and benefits of medication Grief 08/01/2020 Assessment & Plan (07/22/2023 3:37 PM SPINDLE CARVER): Chronic, stable Continue supportive care Assessment & Plan (05/30/2022 10:11 AM CDT): Improved, doing well with supportive care Assessment & Plan (04/25/2021 12:15 PM CDT): Patient with a significant amount of loss over the last year Continue supportive care Update me if her mood worsens or changes Assessment & Plan (08/01/2020 1:22 PM SPINDLE CARVER): Some of her symptoms may be related [...] Future Assessment & Plan (07/22/2023 3:38 PM SPINDLE CARVER): Chronic, stable Managed by cardiology Assessment & [...] Orders: Ambulatory referral to Endocrinology Thyroid Function [place]; Future Thyroglobulin antibodies; Future Assessment & Plan (03/03/2025 9:16 AM CDT): Orders: Ambulatory referral to Endocrinology; Future Assessment & Plan (12/21/2024 12:26 PM CDT): Assessment & Plan (07/22/2023 3:38 PM SPINDLE CARVER): Chronic, stable Managed by oncology Continue to monitor Assessment & Plan (05/30/2022 10:12 AM CDT): Chronic, stable Follows with oncology Continue synthroid Assessment & Plan (04/25/2021 2:10 PM CDT): Continue levothyroxine at current dose Continue to follow with Dr Barclay Resolved Problems Problem Noted Date Diagnosed Date Resolved Date Hypokalemia 06/02/2023 07/22/2024 Assessment & Plan (07/22/2023 3:38 PM SPINDLE CARVER): Chronic,s table Continue replacement History of torsades de pointes 05/08/2021 07/22/2024 Assessment & Plan (07/22/2023 3:38 PM SPINDLE CARVER): Chronic, stable Managed by cardiology S/p pacemaker Assessment & Plan (05/30/2022 10:12 AM CDT): S/p pacemaker Continue to follow with cardiology Allergic rhinitis 04/25/2021 07/22/2024 Assessment & Plan (07/22/2023 3:29 PM SPINDLE CARVER): Chronic, stable Asymptomatic Continue to monitor Assessment [...] PM CDT): Intraop. Etiology unclear Defibrillator discharge 06/17/201511/2020 Encounters Date Type Department Care Team Description 04/15/2025 7:54 AM CDT - 04/15/2025 11:59 PM CDT Hospital Encounter [address] of the abdomen Discharge Disposition: Discharge to home or self care 04/14/2025 2:00 PM CDT Office Visit [address] [address] Sylvester Blas MD Diarrhea, unspecified type (Primary Dx) 04/14/[address] [address] Amarilis Mcfarlane MD 04/13/[address] [address] Sylvester Blas MD 04/11/2025 2:00 PM CDT Office Visit [address] [address] Sylvester Blas MD Abnormal findings on diagnostic imaging of lung (Primary Dx) 04/11/[address] [address] Sylvester Blas MD 04/07/[address] [address] Amarilis Mcfarlane MD 04/04/2025 8:30 AM CDT Office Visit [address] [address] Angela Garrison PA Myalgia (Primary Dx); Acute right-sided thoracic back pain; Renal cyst; Mixed hyperlipidemia; Statin intolerance; Postoperative hypothyroidism; History of thyroid cancer 03/24/2025 Telephone [facility] of [address] [address] Candi Le MD Med Management 03/22/2025 8:00 AM CDT Office Visit [facility] [address] [address] Candi Le MD Postoperative hypothyroidism; History of thyroid cancer 03/18/2025 Results Follow-Up [address] [address] Amarilis Mcfarlane MD Thyroid Function [place] 03/15/2025 Orders Only [address] [phone] Amarilis Mcfarlane MD Postoperative hypothyroidism 03/15/[address] [address] Amarilis Mcfarlane MD Labs Only 03/03/2025 9:35 AM CDT Lab [facility] [place] [address] Palpitation 03/03/2025 9:00 AM CDT Office Visit [address] [address] Christine Katz PA Postoperative hypothyroidism (Primary Dx); History of thyroid cancer; Palpitation 03/03/2025 Results Follow-Up [address] [address] Christine Katz PA Magnesium, Basic metabolic panel, eGFR 02/24/2025 Results Follow-Up [address] [phone] Christine Katz PA Thyroid Function [place] 01/28/2025 Orders Only [address] [address] Amarilis Mcfarlane MD Acute cystitis with hematuria (Primary Dx); Postoperative hypothyroidism 01/25/2025 Results Follow-Up [address] [address] Amarilis Mcfarlane MD Thyroid Function [place] from Last 3 Months Immunizations Immunization Administration [...] ing in [place] cardiac arrest Cardiac arrest 2014 [place] ICD (implantable cardioverter-defibrillator) in place [...] CAD. Heart attack Mother age 90 of [place] Hypertension Mother Breast cancer Sister Relation Name [...] you have a drink containing alcohol? Never 04/11/2025 Q2: How many drinks containi ng alcohol do you have on a typical day when you are drinking? Patient does not drink Q3: How often do you have si x or more drinks on one occasion? Never 04/11/2025 PHQ-2 Answer Date Recorded PHQ-2 Total Score (If total score is 3 or more points, staff should administer the PHQ-9) 0 04/14/2025 PHQ-9 Answer Date Recorded PHQ-9 Total Score 3 07/22/2024 Comments No Sex and Gender Information Value Date Recorded Sex Assigned at Not on file Legal Sex Female 7:51 AM SPINDLE CARVER Gender Identity Female 06/06/2023 10:34 AM CDT Sexual Orientation Straight 06/06/2023 10 :34 AM CDT Obstetrics History Para Term AB IAB SAB Ectopic Multiple Livin g Live Births 3 3 3 Date Outcome GA Total Labor Labor/2nd/3rd Weight Sex Type Anes PTL Fela A1 A5 Name Clin Term Term Term Last Filed Vital Signs Vital Sign Reading Time Taken Comments Blood Pressure 122/78 04/14/2025 1:51 PM CDT Pulse 91 04/14/2025 1:51 PM CDT Temperature 37 C (98.6 F) 04/14/2025 1:51 PM CDT Respiratory Rate 16 04/14/2025 1:51 PM CDT Oxygen Saturation 98% 04/14/2025 1:51 PM CDT Inhaled Oxygen Concentration - - Weight 74.1 kg (163 lb 6.4 oz) 04/14/2025 1:51 P M CDT Height 165.1 cm (5' 5) 04/14/2025 1:51 PM CDT Body Mass Index 27.19 04/14/2025 1:51 PM CDT Plan of Treatment Health Maintenance [...] 07/22/2024, 07/22/2023, Additional history exists Depression Screening 04/14/2026 04/14/2025, 04/11/2025, 04/04/2025, Additional history exists Colon Cancer Screening-Colonoscopy 06/27/2031 [...] to Health Maintenance Results * Thyroid Function [place] (03/17/2025 8:29 AM CDT) TSH 3.69 0.40 - 4.50 mIU/L [facility] Blood 03/17/2025 8:29 AM CDT 03/17/2025 8:30 AM CDT us Amarilis Mcfarlane MD LAB BLOOD ORDERABLE S Final Result Performing Organization Address [facility] Co de Phone Number [employer] [address] [address] [place] [address] * (ABNORMAL) eGFR (03/03/2025 9:40 AM CDT) [...] was last reviewed 2021. Testing performed by: [address] [address] Blood 03/03/2025 9:40 AM CDT 03/03/2025 10:09 AM CDT us Christine PIZARRO LAB BLOOD ORDERABLES Final Resul t Performing Organization Address City/[facility]/ZIP Co de Phone Number SHARON [address] [facility] [place] [address] * ALT (03/03/2025 9:40 AM CDT) ALT 10 7 - 45 Units/L Comment:Testing performed by : [address] [address] Blood 03/03/2025 9:40 AM CDT 03/03/2025 10:09 AM CDT Amarilis Mcfarlane MD LAB BLOOD ORDERABLE S Final Result Performing Organization Address City/[facility]/ZIP Co de Phone Number [address] [place] [address] * AST (03/03/2025 9:40 AM CDT) Pathologist [facility] AST 16 10 - 45 Units/L Comment:Testing performed by : [address] [address] Blood 03/03/2025 9:40 AM CDT 03/03/2025 10:09 AM CDT us Amarilis Mcfarlane MD LAB BLOOD ORDERABLE S Final Result Performing Organization Address [facility] Co de Phone Number [address] [address] * Magnesium (03/03/2025 9:40 AM CDT) [facility] Magnesium 2.2 1.4 - 2.5 mg/dL Comment:Testing performed by : [address] [address] Blood 03/03/2025 9:40 AM CDT 03/03/2025 10:09 AM CDT Christine PIZARRO LAB BLOOD ORDERABLES Final Resul t Performing Organization Address [facility] Co de Phone Number [address] [address] * Creatine kinase (CK), total (03/03/2025 9:40 AM CDT) Pathologist [facility] CK 132 30 - 200 Units/L Comment:Testing performed by : [address] [address] Blood 03/03/2025 9:40 AM CDT 03/03/2025 10:09 AM CDT us Amarilis Mcfarlane MD LAB BLOOD ORDERABLE S Final Result [facility] [address] [facility] Department [place] [address] * (ABNORMAL) Basic metabolic panel (03/03/2025 9:40 AM CDT) Sodium 143 135 - 145 mmol/L Comment:Testing performed by : [address] [address] Potassium, pl 4.3 3.3 - 4.9 mmol/L SHARON Comment:Testing performed by : [address] [address] Chloride 105 97 - 110 mmol/L SHARON Comment:Testing performed by : [address] [address] CO2 28 22 - 32 mmol/L SHARON Comment:Testing performed by : [address] [address] Anion gap 10 2 - 15 mmol/L SHARON Comment:Testing performed by : [address] [address] BUN 19 6 - 25 mg/dL SHARON Comment:Testing performed by : [address] [address] Creatinine 1.08 0.60 - 1.10 mg/dL SHARON Comment:Testing performed by : [address] [address] Glucose 67(L) 70 - 199 mg/dL SHARON [...] was last revised 2022. Testing performed by: [facility], [address] [place] [address]., [address] Calcium 9.1 8.5 - 10.3 mg/dL SHARON Comment:Testing performed by : [address] [address] Blood 03/03/2025 9:40 AM CDT 03/03/2025 10:09 AM CDT us Christine PIZARRO LAB BLOOD ORDERABLES Final Resul t SHARON QUINN [address] [facility] Department [place] [address] * Thyroid Function [place] (02/23/2025 7:53 AM CDT) TSH 2.25 0.40 - 4.50 mIU/L [facility] Blood 02/23/2025 7:53 AM CDT 02/23/2025 7:53 AM CDT us Amarilis Mcfarlane MD LAB BLOOD ORDERABLE S Final Result [facility] [address] [place] [address] * (ABNORMAL) Thyroid Function [place] (01/24/2025 10:05 AM CDT) TSH 0.39(L) 0.40 - 4.50 mIU/L [facility] Blood 01/24/2025 10:0 5 AM CDT 01/24/2025 10:05 AM CDT us Christine Sterling PA LAB BLOOD ORDERABLES Final Resul t Performing Organization Address [facility] Co de Phone Number [facility] [address] [place] [address] * T4, free (01/24/2025 10:05 AM CDT) Free T4 1.7 0.8 - 1.8 ng/dL [facility] 01/24/2025 10:0 5 AM CDT 01/24/2025 10:05 AM CDT Christine PIZARRO LAB BLOOD ORDERABLES Final Resul t Performing Organization Address [facility] de Phone Number [facility] [address] [place] [address] * HM MAMMOGRAPHY (12/27/2024 1:02 PM CDT) Ivonne Provider HEALTH MAINTENANCE Final Result * Hepatitis C antibody (06/04/2022 9:22 AM CDT) Pathologist [facility] Hep C Ab NON-REACTI VE NON-REACT UMESH [facility] SIGNAL TO CUT-OFF 0.01 <1.00 [facility] Comment: HCV antibody was non-reactive. There is no laboratory evidence of HCV infection. In most cases, no further action is required. However, if recent HCV exposure is suspected, a test for HCV RNA (test code 32477) is suggested. For additional information please refer to http://education.[employer].BoxTone/faq/JEX00t2 (This link is being provided for informational/ educational purposes only.) Blood 06/04/2022 9:22 AM CDT 06/04/2022 9:25 AM CDT Narrative [facility] - 06/05/2022 10:11 AM CDT FASTING:YES FASTING: YES Amarilis Mcfarlane MD LAB MICROBIOLOGY - GENERAL ORDERABLES Final Result Performing Organization Address City/[facility] Co de Phone Number [facility] [address] [facility] [place] [address] * Dexa Axial Skeleton Bone Density 1 or 2 Site (01/31/2022 9:03 AM CDT) Anatomical Region Laterality Modality Body N/A Mammography 01/31/2022 3:21 PM CDT Narrative 01/31/2022 3:21 PM CDT EXAM DESCRIPTION: DEXA AXIAL SKELETON BONE DENSITY 1 OR MORE SITES REASON FOR STUDY: 66 y/o year old F with given history of screening. Manager Revenue/Model: Scality A (S/N [id number]) CLINICAL INFORMATION: Current height: 65 inches Maximum [...] Amrita Dennison M.D. TB: TB Report ID: [id number] Reading Location: [facility] Procedure Note MiddletonAmrita MD - 01/31/2022 EXAM DESCRIPTION: DEXA AXIAL SKELETON BONE DENSITY 1 OR MORE SITES REASON FOR STUDY: 66 y/o year old F with given history ofscreening. Manager Revenue/Model: Scality A (S/N [id number]) CLINICAL INFORMATION: Current height: 65 inches Maximum [...] Amrita Dennison M.D. TB: TB Report ID: [id number] Reading Location: [facility] Amarilis Mcfarlane MD IMG DXA PROCEDURES Final Result * Colonoscopy (06/27/2021) Anatomical Region Laterality Modality Other Historical Provider ENDOSCOPY PROCEDURES Milagros l Result from Last 3 Months or Most Recently Relevant to Health Maintenance Insurance MEDICARE [facility] MEDICARE [place] MEDICARE [place] Care Teams Travel Rn Or Relationship Specialty Start Date End Date Amarilis Mcfarlane MD [address] [place] [address] PCP - General Family Medicine 06/29/20 Bayron Barclay DO [address] [place] [address] MEDICAL ONCOLOGY, [address] [place] [address] Medical Oncologist/Wheelchair Van Driver Hematology and Oncology 04/28/23 Christine Katz PA [address] [place] [address] Physician Transplant Coordinator Family Medicine 03/03/25
--- OUTSIDE RECORDS SUMMARY | 2025-04-18 14:37 | XMS_ITS | Encounter Summary ---
Author Organization [facility] Facility Care Team Providers Care Brush Trimming Machine Setter Name Role Phone Brielle Mack MD Primary Care Provider Amarilis Mcfarlane MD Primary Care Provi julito Bayron Barclay DO Unavailable [phone] Christine Katz Unavailable Encounter Details Date Type Department Care Team (Latest Contact Info) Description 05/27/2016 Orders Only [facility] CLINCONV Provider, MD Ivonne [address] [place] [address] Social History Tobacco Use Types Packs/Day Years Used Date Smoking Tobacco: Never Assessed Comments Unknown Sex and Gender Information Value Date Recorded Sex Assigned at Not on file Legal Sex Female 7:51 AM FINANCIAL OFFICER Gender Identity Female 06/06/2023 10:34 AM [...] COVID: Suspected 09/13/2021 09/13/2021 09/14/2021 12:34 AM FINANCIAL OFFICER COVID: Suspected 05/25/2024 05/25/2024 05/25/2024 9:56 AM CDT documented as of this encounter Care Teams Brush Trimming Machine Setter Relationship Specialty Start Date End Date Brielle Mack MD PCP - General 10/23/17 06/28/20 Amarilis Mcfarlane MD [address] [place], [place] [address] PCP - General Family Medicine 06/29/20 Bayron Barclay DO [address] [place] [address] MEDICAL ONCOLOGY, [facility] [address] [place], [place] [address] Medical Oncologist/Front End Specialist Hematology and Oncology 04/28/23 Christine Katz PA [address] [place], [place] [address] Physician Police Liaison Officer Family Medicine 03/03/25 documented as of this encounter
--- OUTSIDE RECORDS SUMMARY | 2025-04-18 14:37 | XMS_ITS | Encounter Summary ---
Author Organization [facility] Facility Care Team Providers Care Systems Eng Name Role Phone Brielle Mack MD Primary Care Provider Amarilis Mcfarlane MD Primary Care Provi julito Bayron Barclay DO Unavailable [phone] Christine Katz Unavailable Encounter Details Date Type Department Care Team (Latest Contact Info) Description 07/02/2017 Orders Only [facility] CLINCONV Provider, MD Ivonne [address] [place] [address] Social History Tobacco Use Types Packs/Day Years Used Date Smoking Tobacco: Never Assessed Comments Unknown Sex and Gender Information Value Date Recorded Sex Assigned at Not on file Legal Sex Female 7:51 AM INSPECTOR EXPERIMENTAL ASSEMBLY Gender Identity Female 06/06/2023 10:34 AM CDT [...] COVID: Suspected 09/13/2021 09/13/2021 09/14/2021 12:34 AM INSPECTOR EXPERIMENTAL ASSEMBLY COVID: Suspected 05/25/2024 05/25/2024 05/25/2024 9:56 AM CDT documented as of this encounter Care Teams Systems Eng Relationship Specialty Start Date End Date Brielle Mack MD PCP - General 10/23/17 06/28/20 Amarilis Mcfarlane MD [address] [place], [place] [id number] PCP - General Family Medicine 06/29/20 Bayron Barclay DO [address] [place] [address] MEDICAL ONCOLOGY, [facility] [address] [place], [place] [phone] Medical Oncologist/Watch Repair Technician Hematology and Oncology 04/28/23 Christine Katz PA [address] [place], [place] [id number] Physician Tipple Worker Family Medicine 03/03/25 documented as of this encounter
--- OUTSIDE RECORDS SUMMARY | 2025-04-18 14:37 | XMS_ITS | Encounter Summary ---
Author Organization [facility] Facility Care Team Providers Care Supervisory Training Specialist Name Role Phone Brielle Mack MD Primary Care Provider [phone] Amarilis Mcfarlane MD Primary Care Provi julito Bayron Barclay DO Unavailable [phone] Christine Katz Unavailable Encounter Details Date Type Department Care Team (Latest Contact Info) Description 08/29/2016 Orders Only [facility] CLINCONV Provider, MD Ivonne [address] [place] [address] Social History Tobacco Use Types Packs/Day Years Used Date Smoking Tobacco: Never Assessed Comments Unknown Sex and Gender Information Value Date Recorded Sex Assigned at Not on file Legal Sex Female 7:51 AM PULVERIZER OPERATOR Gender Identity Female 06/06/2023 10:34 AM CDT Sexual Orientation Straight 06/06/2023 10 :34 AM CDT documented as of this encounter Plan of Treatment Not on file documented as of this encounter Procedures Procedure Name Priority Date/Time Associated Diagnosis Comments CARDIOLOGY REPORT 09/04/2016 12: 00 AM PULVERIZER OPERATOR CARDIOLOGY REPORT 08/29/2016 12: 00 AM PULVERIZER OPERATOR documented in this encounter Results * CARDIOLOGY REPORT (09/04/2016 12:00 AM PULVERIZER OPERATOR) Anatomical Region Laterality Modality Other Narrative 09/04/2016 12:00 AM PULVERIZER OPERATOR Ordered by an unspecified provider. us Historical Provider CV CARDIAC SERVICES PROCE DURES Final Result * CARDIOLOGY REPORT (08/29/2016 12:00 AM PULVERIZER OPERATOR) Anatomical Region Laterality Modality Other Narrative 08/29/2016 12:00 AM PULVERIZER OPERATOR Ordered by an unspecified provider. us Historical Provider CV CARDIAC SERVICES PROCE DURES Final Result documented in this encounter Visit Diagnoses Not on filedocumented in this encounter Additional Health Concerns Infection Onset Date Last Indicated Resolved Time COVID: Suspected 09/13/2021 09/13/2021 09/14/2021 12:34 AM PULVERIZER OPERATOR COVID: Suspected 05/25/2024 05/25/2024 05/25/2024 9:56 AM CDT documented as of this encounter Care Teams Supervisory Training Specialist Relationship Specialty Start Date End Date Brielle Mack MD PCP - General 10/23/17 06/28/20 Amarilis Mcfarlane MD [address] [place], [place] [address] PCP - General Family Medicine 06/29/20 Bayron Barclay DO [address] [place] [address] MEDICAL ONCOLOGY, [facility] [address] [place], [place] [id number] Medical Oncologist/Lieutenant Ballistics Hematology and Oncology 04/28/23 Christine Katz PA [address] [place], [place] [address] Physician Forest Resources Professor Family Medicine 03/03/25 documented as of this encounter
--- OUTSIDE RECORDS SUMMARY | 2025-04-18 14:37 | XMS_ITS | Encounter Summary ---
Author Organization [facility] Facility Care Team Providers Care Cardiology Tech Name Role Phone Brielle Mack MD Primary Care Provider Amarilis Mcfarlane MD Primary Care Provi julito Bayron Barclay DO Unavailable [phone] Christine Katz Unavailable Encounter Details Date Type Department Care Team (Latest Contact Info) Description 11/11/2016 Orders Only MMG CLINCONV Provider, MD Ivonne [address] [place] [address] Social History Tobacco Use Types Packs/Day Years Used Date Smoking Tobacco: Never Assessed Comments Unknown Sex and Gender Information Value Date Recorded Sex Assigned at Not on file Legal Sex Female 7:51 AM BIOMEDICAL ENGINEERING TECHNOLOGIST Gender Identity Female 06/06/2023 10:34 AM CDT Sexual Orientation Straight 06/06/2023 10 :34 AM CDT documented as of this encounter Plan of Treatment Not on file documented as of this encounter Procedures Procedure Name Priority Date/Time Associated Diagnosis Comments CARDIOLOGY REPORT 11/13/2016 12: 00 AM BIOMEDICAL ENGINEERING TECHNOLOGIST documented in this encounter Results * CARDIOLOGY REPORT (11/13/2016 12:00 AM BIOMEDICAL ENGINEERING TECHNOLOGIST) Anatomical Region Laterality Modality Other Narrative 11/13/2016 12:00 AM BIOMEDICAL ENGINEERING TECHNOLOGIST Ordered by an unspecified provider. us Historical Provider CV CARDIAC SERVICES YAMILET ZHANG Final Result documented in this encounter Visit Diagnoses Not on filedocumented in this encounter Additional Health Concerns Infection Onset Date Last Indicated Resolved Time COVID: Suspected 09/13/2021 09/13/2021 09/14/2021 12:34 AM BIOMEDICAL ENGINEERING TECHNOLOGIST COVID: Suspected 05/25/2024 05/25/2024 05/25/2024 9:56 AM CDT documented as of this encounter Care Teams Cardiology Tech Relationship Specialty Start Date End Date Brielle Mack MD PCP - General 10/23/17 06/28/20 Amarilis Mcfarlane MD [address] [place], [place] [id number] PCP - General Family Medicine 06/29/20 Bayron Barclay DO [address] [place] [address] MEDICAL ONCOLOGY, [address] [id number] Medical Oncologist/Stagecraft Teacher Hematology and Oncology 04/28/23 Christine Katz PA [address] [place], [place] [phone] Physician Weighmaster Lead Family Medicine 03/03/25 documented as of this encounter
--- OUTSIDE RECORDS SUMMARY | 2025-04-18 14:37 | XMS_ITS | Encounter Summary ---
Author Organization [facility] Healthcare Address [address] [place] [address] Care Team Providers Care Cushion Filler Name Role Phone Amarilis Mcfarlane MD Primary Care Provi julito Bayron Barclay DO Unavailable [phone] Christine Katz Unavailable Encounter Details Date Type Department Care Team (Late st Contact Info) Description 03/03/2025 Results Follow-Up [facility] Family Medicine [address] [address] Christine Katz PA [address] [address] Magnesium, Basic metabolic panel, eGFR [...] on file Legal Sex Female 7:51 AM DURABLE MEDICAL EQUIPMENT TECHNICIAN Gender Identity Female 06/06/2023 10:34 AM CDT Sexual Orientation Straight 06/06/2023 10 :34 AM CDT documented as of this encounter Functional Status * AUDIT-C Score Answer Date of Assessment Author 0 [...] on filedocumented in this encounter Care Teams Cushion Filler Relationship Specialty Start Date End Date Amarilis Mcfarlane MD [address] [place] [address] PCP - General Family Medicine 06/29/20 Bayron Barclay DO [address] [place] [address] [facility], [facility] [address] [place] [address] Medical Oncologist/Station Worker Hematology and Oncology 04/28/23 Christine Katz PA [address] [place] [address] Physician Supervisory Historian Family Medicine 03/03/25 documented as of this encounter
--- OUTSIDE RECORDS SUMMARY | 2025-04-18 14:37 | XMS_ITS | Encounter Summary ---
Author Organization [facility] Healthcare Address [address] [place] [address] Care Team Providers Care Hospitalist Nocturnist Physician Name Role Phone Amarilis Mcfarlane MD Primary Care Provi julito Bayron Barclay DO Unavailable [phone] Christine Katz Unavailable Encounter Details Date Type Department Care Team (Late st Contact Info) Description 04/14/2025 Telephone [facility] Family Medicine [address] [address] Amarilis Mcfarlane MD [address] [address] Social History Tobacco Use Types [...] file Legal Sex Female 7:51 AM MEDICAL DETAIL REPRESENTATIVE Gender Identity Female 06/06/2023 10:34 AM CDT Sexual Orientation Straight 06/06/2023 10 :34 AM CDT documented as of this encounter Miscellaneous Notes * Telephone Encounter - Jovan Parada LPN - 04/14/2025 8:59 AM CDT Message sent via my chart. * Telephone Encounter - Eli Hill - 04/14/2025 8:26 AM CDT Pt requesting to ask Dr. Sylvester Blas to place an order for a stool culture, pt stated that she is still having diarrhea issues, UTI has gotten better. Please advise pt when placed so she can have it done. documented in this encounter Plan of Treatment Not on file documented as of this encounter Visit Diagnoses Not on filedocumented in this encounter Care Teams Hospitalist Nocturnist Physician Relationship Specialty Start Date End Date Amarilis Mcfarlane MD [address] [place] [address] PCP - General Family Medicine 06/29/20 Bayron Barclay DO [address] [place] [address] MEDICAL ONCOLOGY, [facility] [address] [place], [place] [phone] Medical Oncologist/Braille Translator Hematology and Oncology 04/28/23 Christine Katz PA [address] [place] [address] Physician Diesel Power Mechanic Family Medicine 03/03/25 documented as of this encounter
--- OUTSIDE RECORDS SUMMARY | 2025-04-18 14:37 | XMS_ITS | Encounter Summary ---
Author Organization [facility] Facility Care Team Providers Care Genetic Engineer Name Role Phone Brielle Mack MD Primary Care Provider [phone] Amarilis Mcfarlane MD Primary Care Provi juliot Bayron Barclay DO Unavailable [phone] Christine Katz Unavailable Encounter Details Date Type Department Care Team (Latest Contact Info) Description 12/01/2017 Orders Only MMG CLINCONV Provider, MD Ivonne [address] [place] [address] Social History Tobacco Use Types Packs/Day Years Used Date Smoking Tobacco: Never Assessed Comments Unknown Sex and Gender Information Value Date Recorded Sex Assigned at Not on file Legal Sex Female 7:51 AM GOSPEL SINGER Gender Identity Female 06/06/2023 10:34 AM CDT [...] COVID: Suspected 09/13/2021 09/13/2021 09/14/2021 12:34 AM GOSPEL SINGER COVID: Suspected 05/25/2024 05/25/2024 05/25/2024 9:56 AM CDT documented as of this encounter Care Teams Genetic Engineer Relationship Specialty Start Date End Date Brielle Mack MD PCP - General 10/23/17 06/28/20 Amarilis Mcfarlane MD [address] [place], [place] [phone] PCP - General Family Medicine 06/29/20 Bayron Barclay DO [address] [place] [address] MEDICAL ONCOLOGY, [facility] [address] [place], [place] [phone] Medical Oncologist/Sole Dyer Hematology and Oncology 04/28/23 Christine Katz PA [address] [place], [place] [phone] Physician Machine Ii Trimmer Family Medicine 03/03/25 documented as of this encounter
[2025-04-19 12:08] LABS: Fats, Neutral Normal (.); Fats, Total Normal (.)
[2025-04-20 07:09] LABS: Calprotectin, Fecal 3190 ug/g (0-120)
== END 2025-04-18 14:17 | disposition home or self-care (01) ==
LOC: ANHLAB 14:17
PROVIDERS: PCP Family Medicine; Visit Provider Nurse Practitioner Family
DX: R19.7 Diarrhea, unspecified (principal); R19.5 Other fecal abnormalities; K21.9 Gastro-esophageal reflux disease without esophagitis
CPT/HCPCS: 82705; 83993

== ENCOUNTER 2025-05-23 08:04 | Outpatient (CLI) | payer MEDICARE, OTHER, SELFPAY ==
--- OUTSIDE RECORDS SUMMARY | 2025-05-23 08:29 | XMS_ITS | Encounter Summary ---
Author Organization [facility] Facility Care Team Providers Care Wireless Consultant Name Role Phone Brielle Mack MD Primary Care Provider Amarilis Mcfarlane MD Primary Care Provi julito Bayron Barclay DO Unavailable [phone] Christine Katz Unavailable Encounter Details Date Type Department Care Team (Latest Contact Info) Description 05/27/2016 Orders Only MMG CLINCONV Provider, MD Ivonne [address] [place] [address] Social History Tobacco Use Types Packs/Day Years Used Date Smoking Tobacco: Never Assessed Comments Unknown Sex and Gender Information Value Date Recorded Sex Assigned at Not on file Legal Sex Female 7:51 AM INSTRUCTOR KINDERGARTEN Gender Identity Female 06/06/2023 10:34 AM CDT [...] COVID: Suspected 09/13/2021 09/13/2021 09/14/2021 12:34 AM INSTRUCTOR KINDERGARTEN COVID: Suspected 05/25/2024 05/25/2024 05/25/2024 9:56 AM CDT documented as of this encounter Care Teams Wireless Consultant Relationship Specialty Start Date End Date Brielle Mack MD PCP - General 10/23/17 06/28/20 Amarilis Mcfarlane MD [address] [place], [place] [address] PCP - General Family Medicine 06/29/20 Bayron Barclay DO [address] [place] [address] MEDICAL ONCOLOGY, [facility] [address] [place], [place] [address] Medical Oncologist/Hydrotel Operator Hematology and Oncology 04/28/23 Christine Katz PA [address] [place], [place] [address] Physician Ship Design Teacher Family Medicine 03/03/25 documented as of this encounter
--- OUTSIDE RECORDS SUMMARY | 2025-05-23 08:29 | XMS_ITS | Encounter Summary ---
Author Organization [facility] Facility Care Team Providers Care Core Java Software Engineer Name Role Phone Brielle Mack MD Primary Care Provider Amarilis Mcfarlane MD Primary Care Provi julito Bayron Barclay DO Unavailable [phone] Christine Katz Unavailable Encounter Details Date Type Department Care Team (Latest Contact Info) Description 12/01/2017 Orders Only MMG CLINCONV Provider, MD Ivonne [address] [place] [address] Social History Tobacco Use Types Packs/Day Years Used Date Smoking Tobacco: Never Assessed Comments Unknown Sex and Gender Information Value Date Recorded Sex Assigned at Not on file Legal Sex Female 7:51 AM PLANNING LEAD Gender Identity Female 06/06/2023 10:34 AM CDT [...] COVID: Suspected 09/13/2021 09/13/2021 09/14/2021 12:34 AM PLANNING LEAD COVID: Suspected 05/25/2024 05/25/2024 05/25/2024 9:56 AM CDT documented as of this encounter Care Teams Core Java Software Engineer Relationship Specialty Start Date End Date Brielle Mack MD PCP - General 10/23/17 06/28/20 Amarilis Mcfarlane MD [address] [place], [place] [phone] PCP - General Family Medicine 06/29/20 Bayron Barclay DO [address] [place] [address] MEDICAL ONCOLOGY, [facility] [address] [place], [place] [phone] Medical Oncologist/Nursing Home Admissions Director Hematology and Oncology 04/28/23 Christine Kazt PA [address] [place], [place] [phone] Physician Pilot Safety Inspector Family Medicine 03/03/25 documented as of this encounter
--- OUTSIDE RECORDS SUMMARY | 2025-05-23 08:29 | XMS_ITS | Encounter Summary ---
Author Organization [facility] Healthcare Address [address] [place] [address] Care Team Providers Care Psychology Technician Name Role Phone Amarilis Mcfarlane MD Primary Care Provi julito Bayron Barclay DO Unavailable [phone] Christine Katz Unavailable Encounter Details Date Type Department Care Team (Late st Contact Info) Description 05/10/2025 Results Follow-Up [facility] Family Medicine [address] [address] Sylvester Blas MD [address] [place] [address] CT Chest WO Contrast Social History Tobacco Use Types Packs/Day Years Used Date Smoking Tobacco: Never Smokeless Tobacco: Never Alcohol Use Standard Drinks/Week Comments Never 0 (1 standard drink = 0.6 oz pur e alcohol) PHQ-2 Answer Date Recorded PHQ-2 Total Score (If total score is 3 or more points, staff should administer the PHQ-9) 0 04/20/2025 PHQ-9 Answer Date Recorded PHQ-9 Total Score 3 07/22/2024 AUDIT-C Answer Date Recorded Q1: How often do you have a drink containing alcohol? Never 04/20/2025 Q2: How many drinks containi ng alcohol do you have on a typical day when you are drinking? Patient does not drink Q3: How often do you have si x or more drinks on one occasion? Never 04/20/2025 Personal Safety Answer Date Recorded Have you ever been in or are you currently in a harmful physical or emotional relationship or is someone making you feel afraid or unsafe? Denies 05/06/2025 Comments No Sex and Gender Information Value Date Recorded Sex Assigned at Not on file Legal Sex Female 7:51 AM CHALK EXTRUDING MACHINE OPERATOR Gender Identity Female 06/06/2023 10:34 AM CDT Sexual Orientation Straight 06/06/2023 10 :34 AM CDT documented as of this encounter Miscellaneous Notes * Result Encounter Note - Sylvester Blas MD - 05/10/2025 7:25 AM CDT Repeat imaging does not reveal the incidental finding the other radiologist saw on the non dedicated chest CT. There was no nodular thickening seen. documented in this encounter Plan of Treatment Not on file documented as of this encounter Visit Diagnoses Not on filedocumented in this encounter Care Teams Psychology Technician Relationship Specialty Start Date End Date Amarilis Mcfarlane MD [address] [place] [address] PCP - General Family Medicine 06/29/20 Bayron Barclay DO [address] [place] [address] MEDICAL ONCOLOGY, [facility] [address] [place] [address] Medical Oncologist/Cleat Feeder Hematology and Oncology 04/28/23 Christine Katz PA [address] [place] [address] Physician Air Traffic Control Specialist Center Family Medicine 03/03/25 documented as of this encounter
--- OUTSIDE RECORDS SUMMARY | 2025-05-23 08:29 | XMS_ITS | Clinical Summary ---
Author Organization [facility] Address [address] [place] [address] Care Team Providers Care Sheet Writer Name Role Phone Brielle Mack MD Primary Care Provider [phone] Source Comments [facility],non-owned Affiliates and Associated Physician Practices is amultiple site organization consisting of ambulatory clinics and hospital sitesin [place], [place], [place] and [place]. This disclosure is being madepursuant to the Care Everywhere program and may not contain all information available regarding this patient. Last updated 18.[facility] Allergies Active Allergy Reactions Criticality Noted Date [...] 2006 ZOSTER VACCINE (1 of 2) 2006 DEPRESSION SCREENING 09/08/2024 COVID-19 VACCINE (1 - 4-2 5 season) 2025 INFLUENZA VACCINE (#1) 2025 06/08/2017 Respiratory Syncytial [...] to complete this topic Insurance [facility] Address: [address] [address] [employer] Care Teams Sheet Writer Relationship Specialty Start Date End Date Brielle Mack MD PCP - General Family Medicine 01/08/19
--- OUTSIDE RECORDS SUMMARY | 2025-05-23 08:29 | XMS_ITS | Encounter Summary ---
Author Organization [facility] Address [address] [place] [address] Phone Care Team Providers Care Unified Communications Engineer Name Role Phone Amarilis Mcfarlane MD Primary Care Provi julito Bayron Barclay DO Unavailable [phone] Christine Katz Unavailable Encounter Details Date Type Department Care Team (Late st Contact Info) Description 05/11/2025 Results Follow-Up [facility] Medicine Physicians [facility] Oncology [address] [facility] [address] [place] [phone] Nadira Beck RN Thyroid Social History Tobacco Use Types Packs/Day Years [...] on file Legal Sex Female 7:51 AM CHEMICAL LABORATORY TESTER Gender Identity Female 06/06/2023 10:34 AM CDT Sexual Orientation Straight 06/06/2023 10 :34 AM CDT documented as of this encounter Plan of Treatment Not on file documented as of this encounter Visit Diagnoses Not on filedocumented in this encounter Care Teams Unified Communications Engineer Relationship Specialty Start Date End Date Amarilis Mcfarlane MD [address] [place] [address] PCP - General Family Medicine 06/29/20 Bayron Barclay DO [address] [place] [address] MEDICAL ONCOLOGY, [facility] [address] [place] [address] Medical Oncologist/Vehicle Refinisher Hematology and Oncology 04/28/23 Christine Katz PA [address] [place] [address] Physician Hearing Aid Technician Family Medicine 03/03/25 documented as of this encounter
--- OUTSIDE RECORDS SUMMARY | 2025-05-23 08:29 | XMS_ITS | Encounter Summary ---
Author Organization [facility] Facility Care Team Providers Care Forestry Workers Name Role Phone Brielle Mack MD Primary Care Provider Amarilis Mcfarlane MD Primary Care Provi julito Bayron Barclay DO Unavailable [phone] Christine Katz Unavailable Encounter Details Date Type Department Care Team (Latest Contact Info) Description 02/29/2016 Orders Only MMG CLINCONV Provider, MD Ivonne [address] [place] [address] Social History Tobacco Use Types Packs/Day Years Used Date Smoking Tobacco: Never Assessed Comments Unknown Sex and Gender Information Value Date Recorded Sex Assigned at Not on file Legal Sex Female 7:51 AM MEDICAL RECORDS ANALYST Gender Identity Female 06/06/2023 10:34 AM CDT [...] 09/13/2021 09/13/2021 09/14/2021 12:34 AM MEDICAL RECORDS ANALYST COVID: Suspected 05/25/2024 05/25/2024 05/25/2024 9:56 AM CDT documented as of this encounter Care Teams Forestry Workers Relationship Specialty Start Date End Date Brielle Mack MD PCP - General 10/23/17 06/28/20 Amarilis Mcfarlane MD [address] [place], [place] [address] PCP - General Family Medicine 06/29/20 Bayron Barclay DO [address] [place] [address] MEDICAL ONCOLOGY, [facility] [address] [place], [place] [address] Medical Oncologist/Prosthetics Assistant Hematology and Oncology 04/28/23 Christine Katz PA [address] [place], [place] [address] Physician Captain Assistant Family Medicine 03/03/25 documented as of this encounter
--- OUTSIDE RECORDS SUMMARY | 2025-05-23 08:29 | XMS_ITS | Encounter Summary ---
Author Organization [facility] Facility Care Team Providers Care Gas And Oil Checker Name Role Phone Brielle Mack MD Primary Care Provider Amarilis Mcfarlane MD Primary Care Provi julito Bayron Barclay DO Unavailable [phone] Christine Katz Unavailable Encounter Details Date Type Department Care Team (Latest Contact Info) Description 11/11/2016 Orders Only MMG CLINCONV Provider, MD Ivonne [address] [place] [address] Social History Tobacco Use Types Packs/Day Years Used Date Smoking Tobacco: Never Assessed Comments Unknown Sex and Gender Information Value Date Recorded Sex Assigned at Not on file Legal Sex Female 7:51 AM MECHANICAL INTEGRITY SPECIALIST Gender Identity Female 06/06/2023 10:34 AM CDT Sexual Orientation Straight 06/06/2023 10 :34 AM CDT documented as of this encounter Plan of Treatment Not on file documented as of this encounter Procedures Procedure Name Priority Date/Time Associated Diagnosis Comments CARDIOLOGY REPORT 11/13/2016 12: 00 AM MECHANICAL INTEGRITY SPECIALIST documented in this encounter Results * CARDIOLOGY REPORT (11/13/2016 12:00 AM MECHANICAL INTEGRITY SPECIALIST) Anatomical Region Laterality Modality Other Narrative 11/13/2016 12:00 AM MECHANICAL INTEGRITY SPECIALIST Ordered by an unspecified provider. us Historical Provider CV CARDIAC SERVICES YAMILET ZHANG Final Result documented in this encounter Visit Diagnoses Not on filedocumented in this encounter Additional Health Concerns Infection Onset Date Last Indicated Resolved Time COVID: Suspected 09/13/2021 09/13/2021 09/14/2021 12:34 AM MECHANICAL INTEGRITY SPECIALIST COVID: Suspected 05/25/2024 05/25/2024 05/25/2024 9:56 AM CDT documented as of this encounter Care Teams Gas And Oil Checker Relationship Specialty Start Date End Date Brielle Mack MD PCP - General 10/23/17 06/28/20 Amarilis Mcfarlane MD [address] [place], [place] [phone] PCP - General Family Medicine 06/29/20 Bayron Barclay DO [address] [place] [address] MEDICAL ONCOLOGY, [address] [phone] Medical Oncologist/Valve Technician Hematology and Oncology 04/28/23 Christine Katz PA [address] [place], [place] [phone] Physician Song Writer Family Medicine 03/03/25 documented as of this encounter
--- OUTSIDE RECORDS SUMMARY | 2025-05-23 08:29 | XMS_ITS | Encounter Summary ---
Author Organization [facility] Healthcare Address [address] [place] [address] Care Team Providers Care Early Childhood Assistant Name Role Phone Amarilis Mcfarlane MD Primary Care Provi julito Bayron Barclay DO Unavailable [phone] Christine Katz Unavailable Encounter Details Date Type Department Care Team (Late st Contact Info) Description 05/05/2025 Telephone [facility] - Interventional Radiology [address] [place] [address] Carlton Smith, ERIC Social History Tobacco Use Types Packs/Day Years [...] on file Legal Sex Female 7:51 AM JUNIOR ACCOUNTANT Gender Identity Female 06/06/2023 10:34 AM CDT Sexual Orientation Straight 06/06/2023 10 :34 AM CDT documented as of this encounter Plan of Treatment Not on file documented as of this encounter Visit Diagnoses Not on filedocumented in this encounter Care Teams Early Childhood Assistant Relationship Specialty Start Date End Date Amarilis Mcfarlane MD [address] [place] [address] PCP - General Family Medicine 06/29/20 Bayron Barclay DO [address] [place] [address] MEDICAL ONCOLOGY, [facility] [address] [place] [address] Medical Oncologist/Taxi Servicer Hematology and Oncology 04/28/23 Christine Katz PA [address] [place], [place] [address] Physician Automotive Metalsmith Family Medicine 03/03/25 documented as of this encounter
--- OUTSIDE RECORDS SUMMARY | 2025-05-23 08:29 | XMS_ITS | Clinical Summary ---
Author Organization [facility] Care Team Providers Care Mineral Wool Insulation Supervisor Name Role Phone Unavailable Primary Care Provider Unavailabl e Social History Tobacco Use Types Packs/Day Years Used Date Smoking Tobacco: Never Assessed Comments Unknown Sex and Gender Information Value Date Recorded Sex Assigned at Not on file Legal Sex Female 8:12 AM CATECHIST Gender Identity Not on file Sexual Orientation [...]
--- OUTSIDE RECORDS SUMMARY | 2025-05-23 08:29 | XMS_ITS | Encounter Summary ---
Author Organization [facility] Care Team Providers Care Game Programmer Name Role Phone Brielle Mack MD Primary Care Provider Amarilis Mcfarlane MD Primary Care Provi julito Bayron Barclay DO Unavailable [phone] Christine Katz Unavailable Encounter Details Date Type Department Care Team (Latest Contact Info) Description 08/29/2016 Orders Only [facility] CLINCONV Provider, MD Ivonne [address] [place] [id number] Social History Tobacco Use Types Packs/Day Years Used Date Smoking Tobacco: Never Assessed Comments Unknown Sex and Gender Information Value Date Recorded Sex Assigned at Not on file Legal Sex Female 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 Gender Identity Female 06/06/2023 10:34 AM CDT Sexual Orientation Straight 06/06/2023 10 :34 AM CDT documented as of this encounter Plan of Treatment Not on file documented as of this encounter Procedures Procedure Name Priority Date/Time Associated Diagnosis Comments CARDIOLOGY REPORT 09/04/2016 12: 00 AM STUDENT ACCOUNTS MANAGER CARDIOLOGY REPORT 08/29/2016 12: 00 AM STUDENT ACCOUNTS MANAGER documented in this encounter Results * CARDIOLOGY REPORT (09/04/2016 12:00 AM STUDENT ACCOUNTS MANAGER) Anatomical Region Laterality Modality Other Narrative 09/04/2016 12:00 AM STUDENT ACCOUNTS MANAGER Ordered by an unspecified provider. us Historical Provider [facility] CARDIAC SERVICES PROCE DURES Final Result * CARDIOLOGY REPORT (08/29/2016 12:00 AM STUDENT ACCOUNTS MANAGER) Anatomical Region Laterality Modality Other Narrative 08/29/2016 12:00 AM STUDENT ACCOUNTS MANAGER Ordered by an unspecified provider. us Historical Provider [facility] CARDIAC SERVICES PROCE DURES Final Result documented in this encounter Visit Diagnoses Not on filedocumented in this encounter Additional Health Concerns Infection Onset Date Last Indicated Resolved Time COVID: Suspected 09/13/2021 09/13/2021 09/14/2021 12:34 AM STUDENT ACCOUNTS MANAGER COVID: Suspected 05/25/2024 05/25/2024 05/25/2024 9:56 AM CDT documented as of this encounter Care Teams Game Programmer Relationship Specialty Start Date End Date Brielle Mack MD PCP - General 10/23/17 06/28/20 Amarilis Mcfarlane MD [address] [place], [place] [id number] PCP - General Family Medicine 06/29/20 Bayron Barclay DO [address] [place] [address] MEDICAL ONCOLOGY, [facility] [address] [place], [place] [id number] Medical Oncologist/Buffing Wheel Inspector Hematology and Oncology 04/28/23 Christine Katz PA [address] [place], [place] [id number] Physician Deburring Machine Operator Family Medicine 03/03/25 documented as of this encounter
--- OUTSIDE RECORDS SUMMARY | 2025-05-23 08:29 | XMS_ITS | Encounter Summary ---
Author Organization [facility] Care Team Providers Care Sports Umpire Name Role Phone Brielle Mack MD Primary Care Provider Amarilis Mcfarlane MD Primary Care Provi julito Bayron Barclay DO Unavailable [phone] Christine Katz Unavailable Encounter Details Date Type Department Care Team (Latest Contact Info) Description 07/02/2017 Orders Only [facility] CLINCONV Provider, MD Ivonne [address] [place] [id number] Social History Tobacco Use Types Packs/Day Years Used Date Smoking Tobacco: Never Assessed Comments Unknown Sex and Gender Information Value Date Recorded Sex Assigned at Not on file Legal 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 Gender Identity Female 06/06/2023 10:34 [...] COVID: Suspected 09/13/2021 09/13/2021 09/14/2021 12:34 AM ASSEMBLING MACHINE OPERATOR COVID: Suspected 05/25/2024 05/25/2024 05/25/2024 9:56 AM CDT documented as of this encounter Care Teams Sports Umpire Relationship Specialty Start Date End Date Brielle Mack MD PCP - General 10/23/17 06/28/20 Amarilis Mcfarlane MD [address] [place], [place] [id number] PCP - General Family Medicine 06/29/20 Bayron Barclay DO [address] [place] [address] MEDICAL ONCOLOGY, [facility] [address] [place], [place] [phone] Medical Oncologist/Gaming Dealer Hematology and Oncology 04/28/23 Christine Katz PA [address] [place], [place] [phone] Physician Flight Follower Family Medicine 03/03/25 documented as of this encounter
--- OUTSIDE RECORDS SUMMARY | 2025-05-23 08:29 | XMS_ITS | Clinical Summary ---
Author Organization [facility] Address [address] [place] [address] Care Team Providers Care Cryptologic Technician Operator/Analyst Name Role Phone Amarilis Mcfarlane MD Primary Care Provi julito Bayron Barclay DO Unavailable [phone] Christine Katz PA Unavailable Allergies Active Allergy Reactions Criticality Noted Date Comments Diphenhydramine Palpitations High 03/25/2025 prolongs QT Erythromycin Base Palpitations High 03/25/2025 prolongs QT Sulfasalazine Other (See comments) Low 06/17/2015 Episodes of Torsads - Prologs the QT interval Medications miscellaneous medical supply (Blood Pressure Cuff) miscIndications:El evated blood pressure reading 1 arm blood pressure cuff. Check blood pressure once daily. 1 each 05/14/20 23 Active dicyclomine (BENTYL) 10 mg capsule Take 1 capsule (10 mg total) by mouth 08/25/20 23 Active cloNIDine (CATAPRES) 0.1 mg tabletIndications: Elevated blood pressure reading TAKE 1 TABLET(0.1 MG) BY MOUTH DAILY NEEDED FOR HIGH BLOOD PRESSURE 15 tablet 11/24/19 25 Active meclizine (ANTIVERT) 25 mg tablet TAKE 1 TABLET(25 MG) BY MOUTH THREE TIMES DAILY NEEDED FOR DIZZINESS 30 tablet 11/25/19 25 Active famotidine (PEPCID) 20 mg tablet Take 1 tablet (20 mg total) by mouth 2 (two) times a day as needed for heartburn Active losartan (COZAAR) 100 mg tabletIndications: Primary hypertension Take 1 tablet (100 mg total) by mouth daily 90 tablet 2 12/28/19 25 Active levothyroxine (Synthroid) 88 mcg tabletIndications: Postoperative hypothyroidism Take 1 tablet (88 mcg total) by mouth survey compiler before breakfast 90 tablet 1 01/29/20 25 Active potassium chloride ER 10 mEq CR tabletIndications: ICD (implantable cardioverter-defib rillator) in place TAKE 1 CAPSULE(10 MEQ) BY MOUTH TWICE DAILY 200 tablet/capsu le 1 03/23/20 25 Active levothyroxine (SYNTHROID) 88 mcg tablet Take 0.5 tablets (44 mcg total) by mouth once a week Active cyanocobalamin (Vitamin B-12) 50 mcg tablet Take 1 tablet (50 mcg total) by mouth 01/02/20 24 025 Discontin ued(Thera py completed ) Active Problems Problem Noted Date Diagnosed Date Abnormal CT of the chest 05/18/2025 Assessment & Plan (05/18/2025 9:10 AM CDT): Acute, new Follow up CT reviewed- normal Statin intolerance 11/25/2024 Assessment & Plan (12/21/2024 12:26 PM CDT): Myalgias are improving Assessment & Plan (11/25/2024 11:51 AM CDT): Orders: CT Coronary Calcium Scoring; Future Myalgia 11/25/2024 Assessment & Plan (12/08/2024 3:09 PM CDT): Assessment & Plan (11/25/2024 11:51 AM CDT): Orders: CT Coronary Calcium Scoring; Future Synthroid 125 mcg tablet; Take 1 tablet (125 mcg total) by mouth survey compiler before breakfast Thyroid Function Linn; Future Erythrocyte sedimentation rate; Future Comprehensive metabolic panel; Future BMI 28.0-28.9,adult 10/04/2024 Assessment & Plan (10/04/2024 2:48 PM MANAGER OF FINANCIAL REPORTING): BMI Follow-up includes: education provided. Pericardial effusion [...] Future Postoperative hypothyroidism 01/01/2024 Assessment & Plan (05/18/2025 9:10 AM CDT): Orders: Thyroid Function Linn; Future Assessment & Plan (03/25/2025 2:22 PM CDT): [...] (12/08/2024 3:09 PM CDT): Orders: Thyroid Function Linn; Future Assessment & Plan (11/25/2024 11:51 AM CDT): Orders: Synthroid 125 mcg tablet; Take 1 tablet (125 mcg total) by mouth survey compiler before breakfast Thyroid Function Linn; Future Erythrocyte sedimentation rate; Future Comprehensive metabolic panel; Future Assessment & Plan (10/04/2024 2:50 PM MANAGER OF FINANCIAL REPORTING): Chronic. Elevated mildly at last 2 lab checks. - Increase levothyroxine from 100-112 mcg daily - Repeat labs in 6 weeks Tingling in extremities 01/01/2024 Bilateral carpal tunnel syndrome 01/01/2024 Sphincter of Oddi dysfunction 07/22/2023 Overview (07/22/2024): Followed by GI Primary hypertension 05/26/2023 Assessment & Plan (05/18/2025 9:10 AM CDT): Chronic, stable Continue losartan, prn clonidine Continue to follow with cardiology Assessment & Plan (12/08/2024 3:09 PM CDT): Assessment & Plan (10/04/2024 2:52 PM MANAGER OF FINANCIAL REPORTING): Chronic. Mostly controlled. Patient's average readings from [...] week. Assessment & Plan (07/22/2023 3:39 PM MANAGER OF FINANCIAL REPORTING): Chronic, stabe Continue current regimen Assessment & Plan (06/10/2023 11:28 AM CDT): Chronic, improved Continue losartan Continue clonidine only if needed Continue to follow with Cardiology Update me with any changes Call for questions Low bone mass 05/30/2022 Assessment & Plan (10/04/2024 2:49 PM MANAGER OF FINANCIAL REPORTING): Chronic. Discussed recommendation for 500 mg of calcium daily or 3 servings of calcium in diet daily. Discussed recommendation for vitamin-D 3707-8269 international units daily. She may try to get this all from a multivitamin. Assessment & Plan (07/22/2023 3:39 PM MANAGER OF FINANCIAL REPORTING): Chronic, stable Continue vitamin d Follow up testing ordered Assessment & Plan (05/30/2022 10:13 AM CDT): Continue vitamin d, calcium Strength training, walking H/O cardiac arrest 11/13/2021 Assessment & Plan (07/22/2023 3:37 PM MANAGER OF FINANCIAL REPORTING): Chronic, stable Managed by cardiology Update me with any changes or concerns Assessment & Plan (05/30/2022 10:11 AM CDT): Following with cardiology Other headache syndrome 10/31/2021 Assessment & Plan (07/22/2023 3:39 PM MANAGER OF FINANCIAL REPORTING): Acute, resolved Continue to monitor Update me if anything changes or worsens Assessment & Plan (05/30/2022 10:14 AM CDT): Occasional headaches Keep track of headaches Avoid triggers Update me if her symptoms change or worsen Assessment & Plan (10/31/2021 1:02 PM MANAGER OF FINANCIAL REPORTING): Differential migraine versus cluster versus other With [...] 05/11/2021 Assessment & Plan (07/22/2023 3:40 PM MANAGER OF FINANCIAL REPORTING): Chronic, stable Managed by cardiology S/p ICD placement Assessment & Plan (05/30/2022 10:13 AM CDT): S/p pacemaker Continue to follow with cardiology PVC's (premature ventricular contractions) 05/11 Assessment & Plan (07/22/2023 3:40 PM MANAGER OF FINANCIAL REPORTING): Chronic, stable Managed by cardiology Update me with any changes or concerns Assessment & Plan (05/30/2022 10:13 AM CDT): S/p pacemaker Continue to follow with cardiology Nonsustained ventricular tachycardia 05/11/2021 Assessment & Plan (07/22/2023 3:39 PM MANAGER OF FINANCIAL REPORTING): Chronic, stable Managed by cardiology S/p ICD placement Assessment & Plan (05/30/2022 10:13 AM CDT): S/p pacemaker Continue to follow with cardiology Family history of heart disease 05/11/2021 Assessment & Plan (07/22/2023 3:29 PM MANAGER OF FINANCIAL REPORTING): Chronic, stable Managed by cardiology Continue current [...] reviewed Assessment & Plan (07/22/2024 8:04 AM MANAGER OF FINANCIAL REPORTING): Encouraged healthy diet and activity Please look into a power of criminal defense attorney or living will Health Maintenance: Last mammogram:07/31, 08/01- WNL Last DEXA: 01/27- Low bone mass-ordered Last colonoscopy: 06/28-repeat in 10 years Last Tdap: encouraged Last pneumonia: up to date Last Shingrix: reviewed Last Flu: reviewed Last COVID: reviewed Assessment & Plan (07/22/2023 3:28 PM MANAGER OF FINANCIAL REPORTING): Encouraged healthy diet and activity Please look [...] (heartburn) Assessment & Plan (07/22/2023 3:36 PM MANAGER OF FINANCIAL REPORTING): Chronic, stable Continue prilosec for now Consider [...] untreated Assessment & Plan (10/31/2021 1:01 PM MANAGER OF FINANCIAL REPORTING): With esophagitis and gastritis on her CT scan Continue Prilosec b.i.d. 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 ward aide Update me after the visit Assessment & Plan (04/25/2021 12:16 PM CDT): Continue omeprazole Reviewed the risk and benefits of medication Grief 08/01/2020 Assessment & Plan (07/22/2023 3:37 PM MANAGER OF FINANCIAL REPORTING): Chronic, stable Continue supportive care Assessment & Plan (05/30/2022 10:11 AM CDT): Improved, doing well with supportive care Assessment & Plan (04/25/2021 12:15 PM CDT): Patient with a significant amount of loss over the last year Continue supportive care Update me if her mood worsens or changes Assessment & Plan (08/01/2020 1:22 PM MANAGER OF FINANCIAL REPORTING): Some of her symptoms may be related [...] Future Assessment & Plan (07/22/2023 3:38 PM MANAGER OF FINANCIAL REPORTING): Chronic, stable Managed by cardiology Assessment & [...] Orders: Ambulatory referral to Endocrinology Thyroid Function Linn; Future Thyroglobulin antibodies; Future Assessment & Plan (03/03/2025 9:16 AM CDT): Orders: Ambulatory referral to Endocrinology; Future Assessment & Plan (12/21/2024 12:26 PM CDT): Assessment & Plan (07/22/2023 3:38 PM MANAGER OF FINANCIAL REPORTING): Chronic, stable Managed by oncology Continue to monitor Assessment & Plan (05/30/2022 10:12 AM CDT): Chronic, stable Follows with oncology Continue synthroid Assessment & Plan (04/25/2021 2:10 PM CDT): Continue levothyroxine at current dose Continue to follow with Dr Barclay Resolved Problems Problem Noted Date Diagnosed Date Resolved Date Hypokalemia 06/02/2023 07/22/2024 Assessment & Plan (07/22/2023 3:38 PM MANAGER OF FINANCIAL REPORTING): Chronic,s table Continue replacement History of torsades de pointes 05/08/2021 07/22/2024 Assessment & Plan (07/22/2023 3:38 PM MANAGER OF FINANCIAL REPORTING): Chronic, stable Managed by cardiology S/p pacemaker Assessment & Plan (05/30/2022 10:12 AM CDT): S/p pacemaker Continue to follow with cardiology Allergic rhinitis 04/25/2021 07/22/2024 Assessment & Plan (07/22/2023 3:29 PM MANAGER OF FINANCIAL REPORTING): Chronic, stable Asymptomatic Continue to monitor Assessment [...] Encounters Date Type Department Care Team Description 05/18/2025 8:30 AM CDT Office Visit [facility] [address] [place] [phone] Amarilis Mcfarlane MD Postoperative hypothyroidism (Primary Dx); Insomnia, unspecified type; Abnormal CT of the chest; Renal cyst, right; Primary hypertension; Diarrhea, unspecified type; Postmenopausal status 05/11/2025 Results Follow-Up [facility] [address] [place] [address] [place] [phone] Nadira Beck, ERIC US Thyroid 05/10/2025 Results Follow-Up [facility] [address] [place] [phone] Chest WO Contrast 05/06/2025 6:30 AM CDT - 05/06/2025 11:59 PM CDT Hospital Encounter [facility] - Interventional Radiology [address] [place] [phone] Renal cyst, right Discharge Disposition: Discharge to home or self care 05/05/2025 Telephone [facility] - Interventional Radiology [address] [place] [phone] Carlton Smith RN 05/05/2025 Telephone [facility] - Interventional Radiology [address] [place] [address] [phone] Carlton Smith RN 05/05/2025 Orders Only [facility] - Interventional Radiology [address] [place] [phone] Carlton Smith RN 05/03/2025 Telephone [facility] [address] [phone] Amarilis Mcfarlane MD 04/28/2025 Telephone Radiology [address] [place] [address] Bairon Schwartz MD 04/25/2025 9:45 AM CDT Office Visit [facility] [address] [facility] [address] [place] [phone] Bayron Barclay, Thyroid cancer (CMS/HCC) (HCC) (Primary Dx); History of thyroid cancer 04/22/2025 8:30 AM CDT Lab [facility] [address] [place] [phone] History of thyroid cancer 04/22/2025 8:15 AM CDT Lab [facility] [address] [place] [phone] History of thyroid cancer 04/22/2025 7:57 AM CDT - 04/22/2025 11:59 PM CDT Hospital Encounter [facility] Ultrasound [facility] [place] [address] History of thyroid cancer Discharge Disposition: Discharge to home or self care 04/22/2025 Results Follow-Up [facility] [address] [place] [address] [address], [place] [phone] Talita Preciado MA Thyroid Function Linn, Thyroglobulin antibodies 04/20/2025 2:00 PM CDT Office Visit [facility] [address] [phone] Carmelina Gonzalez NP Urinary frequency (Primary Dx); Renal cyst; Abdominal pain; Diarrhea, unspecified type; Abnormal findings on diagnostic imaging of lung 04/15/2025 7:54 AM CDT - 04/15/2025 11:59 PM CDT Hospital Encounter [address] of the abdomen Discharge Disposition: Discharge to home or self care 04/14/2025 2:00 PM CDT Office Visit [address] [phone] Sylvester Blas MD Diarrhea, unspecified type (Primary Dx) 04/14/[address] [phone] Amarilis Mcfarlane MD 04/13/[address] [phone] Sylvester Blas MD 04/11/2025 2:00 PM CDT Office Visit [address] [phone] Sylvester Blas MD Abnormal findings on diagnostic imaging of lung (Primary Dx) 04/11/[address] [phone] Sylvester Blas MD 04/07/[address] [phone] Amarilis Mcfarlane MD 04/04/2025 8:30 AM CDT Office Visit [address] [phone] Angela Garrison PA Myalgia (Primary Dx); Acute right-sided thoracic back pain; Renal cyst; Mixed hyperlipidemia; Statin intolerance; Postoperative hypothyroidism; History of thyroid cancer 03/24/2025 Telephone [facility] [address] [phone] Candi Le MD Med Management 03/22/2025 8:00 AM CDT Office Visit [facility] [address] [place] [phone] Candi Le MD Postoperative hypothyroidism; History of thyroid cancer 03/18/2025 Results Follow-Up [address] [phone] Amarilis Mcfarlane MD Thyroid Function Linn 03/15/2025 Orders Only [address] [phone] Amarilis Mcfarlane MD Postoperative hypothyroidism 03/15/[address] [phone] Amarilis Mcfarlane MD Labs Only 03/03/2025 9:35 AM CDT Lab [facility] [address] [place] [phone] Palpitation 03/03/2025 9:00 AM CDT Office Visit [address] [phone] Christine Katz PA Postoperative hypothyroidism (Primary Dx); History of thyroid cancer; Palpitation 03/03/2025 Results Follow-Up [address] [phone] Christine Katz PA Magnesium, Basic metabolic panel, eGFR 02/24/2025 Results Follow-Up [address] [phone] Christine Ktaz PA Thyroid Function Linn from Last 3 Months Immunizations Immunization Administration [...] Date Site/Laterality Comments COLONOSCOPY TONSILLECTOMY THYROIDECTOMY APPENDECTOMY US GUIDED ASPIRATION ABSCESS HEMATOMA CYST SOFT TISSUE 05/06/2025 N/A Medical History Medical History Date Comments Thyroid [...] CAD. Heart attack Mother age 90 of [place] Hypertension Mother Breast cancer Sister Relation Name Status Comments Brother 1 (Age 63) Brother 2 Alive Brother 3 Alive Father (Age 79) Mother Sister Alive Social History Tobacco Use Types Packs/Day Years Used Date Smoking Tobacco: Never Smokeless Tobacco: Never Tobacco Cessation:Counseling Given: Not Answered Alcohol Use Standard Drinks/Week Comments Never 0 (1 standard drink = 0.6 oz pur e alcohol) PHQ-2 Answer Date Recorded PHQ-2 Total Score (If total score is 3 or more points, staff should administer the PHQ-9) 0 05/18/2025 PHQ-9 Answer Date Recorded PHQ-9 Total Score 3 07/22/2024 AUDIT-C Answer Date Recorded Q1: How often do you have a drink containing alcohol? Never 05/18/2025 Q2: How many drinks containi ng alcohol do you have on a typical day when you are drinking? Patient does not drink Q3: How often do you have si x or more drinks on one occasion? Never 05/18/2025 Personal Safety Answer Date Recorded Have you ever been in or are you currently in a harmful physical or emotional relationship or is someone making you feel afraid or unsafe? Denies 05/06/2025 Comments No Sex and Gender Information Value Date Recorded Sex Assigned at Not on file Legal Sex Female 7:51 AM MANAGER OF FINANCIAL REPORTING Gender Identity Female 06/06/2023 10:34 AM CDT Sexual Orientation Straight 06/06/2023 10 :34 AM CDT Obstetrics History Para Term AB IAB SAB Ectopic Multiple Livin g Live Births 3 3 3 Date Outcome GA Total Labor Labor/2nd/3rd Weight Sex Type Anes PTL Fela A1 A5 Name Clin Term Term Term Last Filed Vital Signs Vital Sign Reading Time Taken Comments Blood Pressure 120/84 05/18/2025 8:33 AM CDT Pulse 80 05/18/2025 8:33 AM CDT Temperature 36.6 C (97.9 F) 05/18/2025 8:33 AM CDT Respiratory Rate 12 05/18/2025 8:33 AM CDT Oxygen Saturation 98% 05/18/2025 8:33 AM CDT Inhaled Oxygen Concentration - - Weight 74.4 kg (164 lb) 05/18/2025 8:33 AM CDT Height 165.1 cm (5' 5) 05/18/2025 8:33 AM CDT Body Mass Index 27.29 05/18/2025 8:33 AM CDT Plan of Treatment Health Maintenance Due Date Last Done Comments Hepatitis B Screening 1973 Zoster Vaccine (1 of 2) 2006 Osteoporosis Screening-Bone Density Scan 02/01/2024 01/31/2022 Covid-19 Vaccine (2024- 6 season) 2025 09/15/2023, 11/13/2020, 10/17/2020 Influenza Vaccine (#1) 2025 , 06/23/2023, 06/03/2022, Additional history exists Well Visit 65+ 07/22/2025 07/22/2024, 07/09, 07/22/2023, Additional history exists Breast Cancer Screening-Mammogram 12/27/2025 12/27/2024, 07/16/2024, 07/15/2023, Additional history exists Fall Risk Assessment 05/06/2026 05/06/2025, 03/22/2025, 07/22/2024, Additional history exists Depression Screening 05/18/2026 05/18/2025, 04/20/2025, 04/14/2025, Additional history exists Colon Cancer Screening-Colonoscopy 06/27/2031 06/27/2021 DTaP/Tdap/Td Vaccine (2 - Td or Tdap) 09/13/2033 09/13/2023, 09/03/2023 Colon Cancer Screening-CT Colonography Discontinued 06/27/2021 Colon Cancer Screening-DNA Stool Discontinued 06/27/20 Colon Cancer Screening-FIT Discontinued 06/27/2021 Colon Cancer Screening-Sigmoidoscopy Discontinued 06/27/2021 Hepatitis C Screening Completed 06/04/2022 Pneumococcal vaccine 65+ Completed 12/09/2022, 10/10 Procedures Procedure Name Priority Date/Time Associated Diagnosis Comments US GUIDED ASPIRATION ABSCESS HEMATOMA CYST SOFT TISSUE Schedule Routine, Read Routine (OP Routine) 05/06/2025 8:16 AM CDT Renal cyst, right US THYROID Schedule Routine, Read Routine (OP Routine) 04/22/2025 8:45 AM CDT History of thyroid cancer THYROGLOBULIN ANTIBODIES Routine 04/22/2025 8:28 AM CDT History of thyroid cancer THYROID FUNCTION CASCADE Routine 04/22/2025 8:28 AM CDT History of thyroid cancer EGFR Routine 04/22/2025 8:27 AM CDT History of thyroid cancer DIFFERENTIAL AUTO Routine 04/22/2025 8:2 7 AM CDT History of thyroid cancer CBC WITH AUTO DIFFERENTIAL Routine 04/22/2025 8:27 AM CDT History of thyroid cancer COMPREHENSIVE METABOLIC PANEL Routine 04/22/2025 8:27 AM CDT History of thyroid cancer POCT URINALYSIS DIPSTICK Routine 04/20/2025 3:28 PM CDT Urinary frequency CT CHEST WO CONTRAST Schedule Routine, Read Routine (OP Routine) 04/15/2025 8:[address] of the abdomen THYROID FUNCTION CASCADE Routine 03/17/2025 8:29 AM [...] Routine 02/23/2025 7:53 AM CDT Postoperative hypothyroidism HM MAMMOGRAPHY Routine 12/27/2024 1:02 PM CDT HEPATITIS C ANTIBODY Routine 06/04/2022 9:22 AM CDT Need for hepatitis C screening test DEXA AXIAL SKELETON BONE DENSITY 1 OR MORE SITES Schedule Routine, Read Routine (OP Routine) 01/31/2022 9:03 AM CDT Postmenopausal status COLONOSCOPY Routine 06/27/2021 from Last 3 Months or Most Recently Relevant to Health Maintenance Results * US Guided Aspiration Abscess Hematoma Cyst Soft Tissue (05/06/2025 8:16 AM CDT) Anatomical Region Laterality Modality Entire body N/A X-Ray Angiograph y 05/06/2025 8:53 AM CDT Impressions 05/06/2025 8:53 AM CDT Successful aspiration and sclerosis of large right renal cyst PLAN: If symptoms return, recommend repeat CT abdomen pelvis to assess for residual cyst. Electronically signed by: Bairon Schwartz M.D. Narrative 05/06/2025 8:53 AM CDT EXAMINATION: PERCUTANEOUS DRAINAGE (STD) HISTORY: 70-year-old female with symptomatic right renal cyst previously drained, now recurred with return of symptoms. ATTENDING PRESENCE: Bairon Schwartz M.D., the attending radiologist was present from the beginning to the end of the procedure. SEDATION: Moderate conscious sedation was administered under the attending physician's direction and continuous monitoring by a trained nurse specialist who was independent from those actually performing the procedure. The total monitored conscious time was 14minutes. TECHNIQUE: The risks, benefits and alternatives were discussed and informed consent was obtained. Prior to beginning the procedure, Mcgill Protocol was used to confirm the patient's identity and planned procedure. If fluoroscopy was used, fluoroscopy time has been recorded in the electronic medical record. Maximum sterile barriers including cap, mask, hand hygiene, sterile gloves, sterile gown, large sterile drape and 2% chlorhexidine for cutaneous antisepsis were used. The skin overlying the fluid collection in the right side was sterilely prepped, draped and infiltrated with 1% buffered lidocaine. The targeted collection was then accessed with a 18 gauge needle using imaging guidance which included ultrasound. Contrast was injected to confirm needle placement. A guidewire was advanced and coiled within the collection before dilating the tract to 8 Fr. A 8.5-Maldivian Brock-Conrad was then advanced over the guidewire. Approximately 240 mL of clear fluid drained. Repeat contrast injections showed near complete resolution of the cavity. Approximately 20 mL of alcohol were then instilled of the left nipple for 5 minutes. After 5 minutes, the alcohol was aspirated entirely. The drain was then severed and removed. A sterile dressing was applied. ESTIMATED BLOOD LOSS: Minimal.. CONDITION: Stable. DISCHARGED TO: Recovery and then to home. FINDINGS: Images from the procedure revealed a collection that was large hypoechoic right renal cyst. The fluid appeared clear serous. An approximate volume of 240 cc was drained at the time of the procedure. Sclerosis of the right renal cyst with 20 mL of alcohol. Procedure Note Bairon Schwartz MD - 05/06/2025 EXAMINATION: PERCUTANEOUS DRAINAGE (STD) HISTORY: 70-year-old female with symptomatic right renal cyst previously drained, now recurred with return of symptoms. ATTENDING PRESENCE: Bairon Schwartz M.D., the attending radiologist was present from the beginning to the end of the procedure. SEDATION: Moderate conscious sedation was administered under the attending physician's direction and continuous monitoring by a trained nurse specialist who was independent from those actually performing the procedure. The total monitored conscious time was 14minutes. TECHNIQUE: The risks, benefits and alternatives were discussed and informed consent was obtained. Prior to beginning the procedure, Mcgill Protocol was used to confirm the patient's identity and planned procedure. If fluoroscopy was used, fluoroscopy time has been recorded in the electronic medical record. Maximum sterile barriers including cap, mask, hand hygiene, sterile gloves, sterile gown, large sterile drape and 2% chlorhexidine for cutaneous antisepsis were used. The skin overlying the fluid collection in the right side was sterilely prepped, draped and infiltrated with 1% buffered lidocaine. The targeted collection was then accessed with a 18 gauge needle using imaging guidance which included ultrasound. Contrast was injected to confirm needle placement. A guidewire was advanced and coiled within the collection before dilating the tract to 8 Fr. A 8.5-Maldivian Brock-Conrad was then advanced over the guidewire. Approximately 240 mL of clear fluid drained. Repeat contrast injections showed near complete resolution of the cavity. Approximately 20 mL of alcohol were then instilled of the left nipple for 5 minutes. After 5 minutes, the alcohol was aspirated entirely. The drain was then severed and removed. A sterile dressing was applied. ESTIMATED BLOOD LOSS: Minimal.. CONDITION: Stable. DISCHARGED TO: Recovery and then to home. FINDINGS: Images from the procedure revealed a collection that was large hypoechoic right renal cyst. The fluid appeared clear serous. An approximate volume of 240 cc was drained at the time of the procedure. Sclerosis of the right renal cyst with 20 mL of alcohol. IMPRESSION: Successful aspiration and sclerosis of large right renal cyst PLAN: If symptoms return, recommend repeat CT abdomen pelvis to assess for residual cyst. Electronically signed by: Bairon Schwartz M.D. Jake Wall MD IMG US PROCEDURES Final Result * US Thyroid (04/22/2025 8:45 AM CDT) Anatomical Region Laterality Modality Head and Neck N/A Ultrasound 05/11/2025 6:20 AM CDT Narrative 05/11/2025 6:21 AM CDT EXAM DESCRIPTION: US THYROID REASON FOR STUDY: Restaging for thyroid cancer. Previous thyroidectomy. TECHNIQUE: Ultrasound of the thyroid was performed with grayscale and color doppler. COMPARISON: 04/20/2024 FINDINGS: RIGHT: The right thyroid lobe is surgically absent. No residual mass, adenopathy or fluid collection. LEFT: The left thyroid lobe is surgically absent. No residual mass, adenopathy or fluid collection. ISTHMUS: The isthmus is surgically absent. No residual mass, adenopathy or fluid collection. VASCULARITY: Normal. OTHER: No other significant finding. IMPRESSION: 1. No residual mass, adenopathy or fluid collection. REFERENCE: According to the ACR Thyroid Imaging, Reporting and Data System (TI-RADS): White Paper of the ACR TI-RADS Committee Jan, 2017 recommendations regarding the management of thyroid nodules are as follows: 1. TI-RADS 1: Risk of malignancy <2%, no FNA or follow up required. 2. TI-RADS 2: Risk of malignancy <2%, no FNA or follow up required. 3. TI-RADS 3: Risk of malignancy 2%-5%. Nodules 1.5 cm or greater follow up at 1, 3 and 5 years recommended, for nodules 2.5 cm or greater FNA recommended. 4. TI-RADS 4: Risk of malignancy 5%-20% Nodules 1.0 cm or greater follow up at 1, 2, 3 and 5 years recommended, for nodules 1.5 cm or greater FNA recommended 5. TI-RADS 5: Risk of malignancy >20%. Nodules 0.5 cm or greater annual follow up for 5 years recommended, for nodules 1.0 cm or greater FNA recommended. The ACT TI-RADS committee recommends targeting no more than two nodules for FNA. If three or more nodules meet criteria for FNA, the two with the most suspicious appearance based on ACR TI-RADS points should be sampled. THIS IS AN ELECTRONICALLY VERIFIED FINAL REPORT 05/11/2025 6:21 AM - Electronically signed by Janes Rodrigues M.D. RB: CELESTINO Report ID: [id number] Reading Location: [id number] Procedure Note Janes Rodrigues MD - 05/11/2025 EXAM DESCRIPTION: US THYROID REASON FOR STUDY: Restaging for thyroid cancer. Previous thyroidectomy. TECHNIQUE: Ultrasound of the thyroid was performed with grayscale andcolor doppler. COMPARISON: 04/20/2024 FINDINGS: RIGHT: The right thyroid lobe is surgically absent. No residual mass, adenopathy or fluid collection. LEFT: The left thyroid lobe is surgically absent. No residual mass, adenopathy or fluid collection. ISTHMUS: The isthmus is surgically absent. No residual mass, adenopathyor fluid collection. VASCULARITY: Normal. OTHER: No other significant finding. IMPRESSION: 1. No residual mass, adenopathy or fluid collection. REFERENCE: According to the ACR Thyroid Imaging, Reporting and Data System (TI-RADS): White Paper of the ACR TI-RADS Committee Jan, 2017recommendations regarding the management of thyroid nodules are as follows: 1. TI-RADS 1: Risk of malignancy <2%, no FNA or follow up required. 2. TI-RADS 2: Risk of malignancy <2%, no FNA or follow up required. 3. TI-RADS 3: Risk of malignancy 2%-5%. Nodules 1.5 cm or greater followup at 1, 3 and 5 years recommended, for nodules 2.5 cm or greater FNArecommended. 4. TI-RADS 4: Risk of malignancy 5%-20% Nodules 1.0 cm or greater followup at 1, 2, 3 and 5 years recommended, for nodules 1.5 cm or greater FNA recommended 5. TI-RADS 5: Risk of malignancy >20%. Nodules 0.5 cm or greater annual follow up for 5 years recommended, for nodules 1.0 cm or greater FNA recommended. The ACT TI-RADS committee recommends targeting no more than two nodulesfor FNA. If three or more nodules meet criteria for FNA, the two with themost suspicious appearance based on ACR TI-RADS points should be sampled. THIS IS AN ELECTRONICALLY VERIFIED FINAL REPORT 05/11/2025 6:21 AM - Electronically signed by Janes Rodrigues M.D. RB: CELESTINO Report ID: [id number] Reading Location: [place] [address] us Bayron Barclay DO [facility] [place] US PROCEDURES Final Resu lt * Thyroglobulin antibodies (04/22/2025 8:28 AM CDT) Anti-thyroglobulin <1.8 <4.0 IUnits/mL [facility] Comment: ADDITIONAL INFORMATION PLEASE NOTE: The given thyroglobulin antibody (TgAb) reference cutoff of <4.0 IU/mL is for the evaluation of autoimmune thyroiditis. A cutoff of <1.8 IU/mL may be more suitable for the detection of potential thyroglobulin antibody (TgAb) interference in thyroglobulin immunoassays. The thyroglobulin antibody testing method is an immunoenzymatic assay manufactured by [employer] and performed on the [employer] DXI 800. Values obtained from different assay methods or kits may be different and cannot be used interchangeably. The results cannot be interpreted as absolute evidence for the presence or absence of malignant disease. Test Performed by: [facility] - [address] [address] Bench Grinder: Jayson Baca Ph.D.; CLIA# [id number] Testing performed by: [facility], [address] [place] [address]., [address] Blood 04/22/2025 8:28 AM CDT 04/22/2025 8:33 AM CDT us Candi Le MD LAB BLOOD ORDERABLES Final Resul t Performing Organization Address City/[facility] Co de Phone Number SHARON [address] [place] [address] [facility] * Thyroid Function [place]inn (04/22/2025 8:28 AM CDT) TSH 2.76 0.30 - 4.20 mcIUnit/mL Comment:Testing performed by : [address] [address] Blood 04/22/2025 8:28 AM CDT 04/22/2025 8:34 AM CDT Candi Le MD LAB BLOOD ORDERABLES Final Resul t Performing Organization Address [facility] Co de Phone Number SHARON [address] [place] [address] * (ABNORMAL) eGFR (04/22/2025 8:27 AM CDT) eGFR 58(L) >=60 mL/min/1. 73 m2 Comment: Interpretive Data [...] of Race in Diagnosing Kidney Disease, JASN 202). The CKD-EPI equation should not be used for patients with unstable renal function and has not been validated in children and those over 70. Current interpretive data was last reviewed 2021. Testing performed by: [address] [address] Blood 04/22/2025 8:27 AM CDT 04/22/2025 8:46 AM CDT Bayron Barclay DO LAB BLOOD ORDERABLES Final R esult SHARON [address] [facility] Department [place] [address] * Differential, auto (04/22/2025 8:27 AM CDT) Neutrophil abs 4.09 1.50 - 6.50 K/cumm Comment:Testing performed by : [address] [address] Imm gran abs 0.04 0.00 - 0.10 K/cumm SHARON Comment:Testing performed by : [address] [address] Lymphocyte abs 1.11 0.80 - 3.30 K/cumm SHARON Comment:Testing performed by : [address] [address] Monocyte abs 0.34 0.20 - 0.80 K/cumm SHARON Comment:Testing performed by : [address] [address] Eosinophil abs 0.14 0.00 - 0.50 K/cumm SHARON Comment:Testing performed by : [address] [address] Basophil abs 0.04 0.00 - 0.10 K/cumm SHARON Comment:Testing performed by : [address] [address] Neutrophil pct 71.0 % SHARON Comment: Interpretive Data Percent cell count reference ranges are not reported, since discordance with absolute values may lead to misinterpretation of CBC data. Current Interpretive Data was last revised on 2017. Testing performed by: [address] [address] Imm gran pct 0.7 % SHARON Comment: Interpretive Data Percent cell count reference ranges are not reported, since discordance with absolute values may lead to misinterpretation of CBC data. Current Interpretive Data was last revised on 2017. Testing performed by: [address] [address] Lymphocyte pct 19.3 % [facility] Comment: Interpretive Data Percent cell count reference ranges are not reported, since discordance with absolute values may lead to misinterpretation of CBC data. Current Interpretive Data was last revised on 2017. Testing performed by: [address] [address] Monocyte pct 5.9 % [facility] Comment: Interpretive Data Percent cell count reference ranges are not reported, since discordance with absolute values may lead to misinterpretation of CBC data. Current Interpretive Data was last revised on 2017. Testing performed by: [address] [address] Eosinophil pct 2.4 % [facility] Comment: Interpretive Data Percent cell count reference ranges are not reported, since discordance with absolute values may lead to misinterpretation of CBC data. Current Interpretive Data was last revised on 2017. Testing performed by: [address] [address] Basophil pct 0.7 % [facility] Comment: Interpretive Data Percent cell count reference ranges are not reported, since discordance with absolute values may lead to misinterpretation of CBC data. Current Interpretive Data was last revised on 2017. Testing performed by: [address] [address] Blood 04/22/2025 8:27 AM CDT 04/22/2025 8:32 AM CDT us Bayron Barclay DO LAB BLOOD ORDERABLES Final R esult SHARON QUINN [address] [facility] Department [place] [address] * CBC with auto differential (04/22/2025 8:27 AM CDT) WBC 5.76 3.80 - 9.90 K/cumm Comment:Testing performed by : [address] [place]., [address] Hgb 13.9 11.9 - 15.5 g/dL SHARON Comment:Testing performed by : [address], [address] Hct 41.5 35.6 - 45.5 % SHARON Comment:Testing performed by : [address] [address] Plt 216 150 - 400 K/cumm SHARON Comment:Testing performed by : [address], [address] MPV 10.6 9.1 - 12.3 fL SHARON Comment:Testing performed by : [address], [address] RBC 4.66 3.90 - 5.20 M/cumm SHARON Comment:Testing performed by : [address], [address] MCV 89.1 81.3 - 96.4 fL SHARON Comment:Testing performed by : [address], [address] MCH 29.8 27.1 - 33.3 pg SHARON Comment:Testing performed by : [address], [address] MCHC 33.5 32.3 - 35.7 g/dL SHARON Comment:Testing performed by : [address], [address] RDW CV 12.7 11.1 - 14.9 % SHARON Comment:Testing performed by : [address], [address] RDW SD 40.4 35.7 - 48.1 fL SHARON Comment:Testing performed by : [address], [address] NRBC abs 0.00 0.00 - 0.01 K/cumm SHARON Comment:Testing performed by : [address], [address] Blood 04/22/2025 8:27 AM CDT 04/22/2025 8:32 AM CDT us Bayron Barclay DO LAB BLOOD ORDERABLES Final R esult SHARON [address] [facility] Department [place] [address] * Comprehensive metabolic panel (04/22/2025 8:27 AM CDT) Sodium 143 135 - 145 mmol/L Comment:Testing performed by : [address] [address] Potassium, pl 4.2 3.3 - 4.9 mmol/L SHARON Comment:Testing performed by : [address] [address] Chloride 105 97 - 110 mmol/L SHARON Comment:Testing performed by : [address] [address] CO2 25 22 - 32 mmol/L SHARON Comment:Testing performed by : [address] [address] Anion gap 13 2 - 15 mmol/L SHARON Comment:Testing performed by : [address] [address] BUN 15 6 - 25 mg/dL SHARON Comment:Testing performed by : [address] [address] Creatinine 1.04 0.60 - 1.10 mg/dL SHARON Comment:Testing performed by : [address] [address] Glucose 102 70 - 199 mg/dL SHARON Comment: Interpretive [...] was last revised 2022. Testing performed by: [address] [address] Calcium 9.4 8.5 - 10.3 mg/dL SHARON Comment:Testing performed by : [address] [address] Bilirubin, total 0.6 0.1 - 1.2 mg/dL SHARON Comment:Testing performed by : [address] [address] Protein, pl 7.1 6.5 - 8.5 g/dL SHARON Comment:Testing performed by : [address] [address] Albumin 4.4 3.5 - 5.0 g/dL SHARON Comment:Testing performed by : [address] [address] Alk phos 92 40 - 130 Units/L SHARON Comment:Testing performed by : [address] [address] ALT 10 7 - 45 Units/L SHARON Comment:Testing performed by : [address] [address] AST 17 10 - 45 Units/L [facility] Comment:Testing performed by : [address] [address] Blood 04/22/2025 8:27 AM CDT 04/22/2025 8:33 AM CDT Bayron Barclay DO LAB BLOOD ORDERABLES Final R esult SHARON QUINN [address] [facility] Department of Laboratories [place], [place] [id number] * POCT urinalysis dipstick (04/20/2025 3:28 PM CDT) Color, Urine, POC Yellow Clarity, ur, POC Clear Clear Glucose, ur, POC Negative Negative Bilirubin, ur, POC Negative Negative Ketones, ur, POC Negative Negative Specific [place], POC 1.030 1.003 - 1.030 Blood, ur, POC Negative Negative pH, ur, POC 6.0 5.0 - 8.0 Protein, ur, POC Negative Negative Urobilinogen, urine, POC 0.2 0.2 - 1.0 mg/dL Nitrite, ur, POC Negative Negative Leukocytes, ur, POC Negative Negative Lot Number [id number] Urine 04/20/2025 3:28 PM CDT Carmelina Gonzalez NP POINT OF CARE TEST ORDERABLE S Final Result * CT Chest WO Contrast (04/15/2025 8:10 AM CDT) Anatomical Region Laterality Modality Body N/A Computed Tomogra phy 05/06/2025 1:02 PM CDT Narrative 05/06/2025 1:38 PM CDT EXAM DESCRIPTION: CT CHEST WO CONTRAST REASON FOR STUDY: Abnormal CT chest follow-up. Follow-up of nodular pleural thickening on outside imaging (images not available). History of thyroid cancer. TECHNIQUE: CT scan of the chest performed without intravenous contrast using helical scanning technique. Reconstructed coronal and sagittal MPR images reviewed. All images stored on PACS. Automated exposure control was used as a dose optimization technique for this examination. COMPARISON: CT coronary artery calcium scoring 12/14/2024, CT chest 06/10/2014 , CT abdomen and pelvis 03/27/2024 FINDINGS: The sensitivity for detection of solid visceral lesions is diminished without the use of intravenous contrast. LUNGS: Minimal scarring in the lung apices is grossly similar. Minimal atelectasis or scarring within the lateral left lower lobe (image 89) is grossly similar to the prior study. PLEURAE: No pleural effusion. No pneumothorax. Specifically, no pleural nodularity is seen. MEDIASTINUM/OZZY: No mediastinal or hilar lymphadenopathy. HEART: Heart size is within normal limits. Small pericardial effusion. CORONARY ARTERY CALCIFICATION: Absent VASCULATURE: No thoracic aortic aneurysm. AXILLAE: No lymphadenopathy. CHEST WALL: No masses. No subcutaneous air. HARDWARE/LINES/TUBES: Left chest generator pack with with leads terminating in the right atrium and right ventricle. UPPER ABDOMEN: Prior cholecystectomy. Cyst in the upper pole of the right kidney requires no specific follow-up. MUSCULOSKELETAL: Moderate thoracic spondylosis. OTHER: No other significant abnormality. IMPRESSION: 1. No pleural nodularity is seen. If prior images become available, a direct comparison can be made if clinically warranted. 2. Minimal atelectasis or scarring within the lateral left lower lobe is grossly similar to the prior study. 3. Small pericardial effusion. THIS IS AN ELECTRONICALLY VERIFIED FINAL REPORT 05/06/2025 1:38 PM - Electronically signed by Surjit Henderson M.D. LB T: Report ID: [id number] Reading Location: [id number] Procedure Note Surjit Henderson MD - 05/06/2025 EXAM DESCRIPTION: CT CHEST WO CONTRAST REASON FOR STUDY: Abnormal CT chest follow-up. Follow-up of nodularpleural thickening on outside imaging (images not available). History of thyroid cancer. TECHNIQUE: CT scan of the chest performed without intravenous contrastusing helical scanning technique. Reconstructed coronal and sagittal MPR images reviewed. All images stored on PACS. Automated exposure control was usedas a dose optimization technique for this examination. COMPARISON: CT coronary artery calcium scoring 12/14/2024, CT chest 06/10/2014 , CT abdomen and pelvis 03/27/2024 FINDINGS: The sensitivity for detection of solid visceral lesions is diminished without the use of intravenous contrast. LUNGS: Minimal scarring in the lung apices is grossly similar. Minimal atelectasis or scarring within the lateral left lower lobe (image 89) is grossly similar to the prior study. PLEURAE: No pleural effusion. No pneumothorax. Specifically, nopleural nodularity is seen. MEDIASTINUM/OZZY: No mediastinal or hilar lymphadenopathy. HEART: Heart size is within normal limits. Small pericardial effusion. CORONARY ARTERY CALCIFICATION: Absent VASCULATURE: No thoracic aortic aneurysm. AXILLAE: No lymphadenopathy. CHEST WALL: No masses. No subcutaneous air. HARDWARE/LINES/TUBES: Left chest generator pack with with leadsterminating in the right atrium and right ventricle. UPPER ABDOMEN: Prior cholecystectomy. Cyst in the upper pole of theright kidney requires no specific follow-up. MUSCULOSKELETAL: Moderate thoracic spondylosis. OTHER: No other significant abnormality. IMPRESSION: 1. No pleural nodularity is seen. If prior images become available, a direct comparison can be made if clinically warranted. 2. Minimal atelectasis or scarring within the lateral left lower lobe is grossly similar to the prior study. 3. Small pericardial effusion. THIS IS AN ELECTRONICALLY VERIFIED FINAL REPORT 05/06/2025 1:38 PM - Electronically signed by Surjit GARCÍA T: Report ID: [id number] Reading Location: [place] [address] us Sylvester Blas MD IMG CT PROCEDURES Final Resul t * Thyroid Function [place] (03/17/2025 8:29 AM CDT) TSH 3.69 0.40 - 4.50 mIU/L [facility] Blood 03/17/2025 8:29 AM CDT 03/17/2025 8:30 AM CDT us Amarilis Mcfarlane MD LAB BLOOD ORDERABLE S Final Result [facility] [address] [place] [address] * (ABNORMAL) eGFR (03/03/2025 9:40 AM CDT) [...] last reviewed 2021. Testing performed by: [address] [address] Blood 03/03/2025 9:40 AM CDT 03/03/2025 10:09 AM CDT us Christine PIZARRO LAB BLOOD ORDERABLES Final Resul t Performing Organization Address City/[facility]/ZIP Co de Phone Number [address] [place] [address] * ALT (03/03/2025 9:40 AM CDT) ALT 10 7 - 45 Units/L Comment:Testing performed by : [address] [address] Blood 03/03/2025 9:40 AM CDT 03/03/2025 10:09 AM CDT us Amarilis Mcfarlane MD LAB BLOOD ORDERABLE S Final Result Performing Organization Address [facility] Co de Phone Number [address] [place] [address] * AST (03/03/2025 9:40 AM CDT) AST 16 10 - 45 Units/L Comment:Testing performed by : [address] [address] Blood 03/03/2025 9:40 AM CDT 03/03/2025 10:09 AM CDT us Amarilis Mcfarlane MD LAB BLOOD ORDERABLE S Final Result Performing Organization Address City/[facility] Co de Phone Number [address] [address] * Magnesium (03/03/2025 9:40 AM CDT) Magnesium 2.2 1.4 - 2.5 mg/dL Comment:Testing performed by : [address] [address] Blood 03/03/2025 9:40 AM CDT 03/03/2025 10:09 AM CDT us Christine PIZARRO LAB BLOOD ORDERABLES Final Resul t Performing Organization Address City/[facility]/ZIP Co de Phone Number [address] [place] [address] * Creatine kinase (CK), total (03/03/2025 9:40 AM CDT) CK 132 30 - 200 Units/L Comment:Testing performed by : [address] [address] Blood 03/03/2025 9:40 AM CDT 03/03/2025 10:09 AM CDT us Amarilis Mcfarlane MD LAB BLOOD ORDERABLE S Final Result Performing Organization Address [facility] Co de Phone Number [address] [address] * (ABNORMAL) Basic metabolic panel (03/03/2025 9:40 AM CDT) Sodium 143 135 - 145 mmol/L Comment:Testing performed by : [address] [address] Potassium, pl 4.3 3.3 - 4.9 mmol/L SHARON Comment:Testing performed by : [address] [address] Chloride 105 97 - 110 mmol/L SHARON Comment:Testing performed by : [address] [address] CO2 28 22 - 32 mmol/L SHARON Comment:Testing performed by : [address] [address] Anion gap 10 2 - 15 mmol/L SHARON Comment:Testing performed by : [address] [address] BUN 19 6 - 25 mg/dL SHARON Comment:Testing performed by : [address] [address] Creatinine 1.08 0.60 - 1.10 mg/dL SHARON Comment:Testing performed by : [address] [address] Glucose 67(L) 70 - 199 mg/dL SHARON [...] was last revised 2022. Testing performed by: [facility], [address] [place] [address]., [address] Calcium 9.1 8.5 - 10.3 mg/dL SHARON Comment:Testing performed by : [address] [address] Blood 03/03/2025 9:40 AM CDT 03/03/2025 10:09 AM CDT us Christine PIZARRO LAB BLOOD ORDERABLES Final Resul t [facility] [address] [facility] [place] [address] * Thyroid Function [place] (02/23/2025 7:53 AM CDT) TSH 2.25 0.40 - 4.50 mIU/L [facility] Blood 02/23/2025 7:53 AM CDT 02/23/2025 7:53 AM CDT us Amarilis Mcfarlane MD LAB BLOOD ORDERABLE S Final Result Performing Organization Address [facility] Co de Phone Number [facility] [address] [place] [address] * HM MAMMOGRAPHY (12/27/2024 1:02 PM CDT) Historical Provider MD HEALTH MAINTENANCE Final Result * Hepatitis [...] a test for HCV RNA (test code 96981) is suggested. For additional information please refer to http://education.[employer]/faq/KKH19x3 (This link is being provided for informational/ educational purposes only.) Blood 06/04/2022 9:22 AM CDT 06/04/2022 9:25 AM CDT Narrative [facility] - 06/05/2022 10:11 AM CDT FASTING:YES FASTING: YES Amarilis Mcfarlane MD LAB MICROBIOLOGY - GENERAL ORDERABLES Final Result Performing Organization Address [facility] Co de Phone Number [facility] [address] [place] [address] * Dexa Axial Skeleton Bone Density 1 or 2 Site (01/31/2022 9:03 AM CDT) Anatomical Region Laterality Modality Body N/A Mammography 01/31/2022 3:21 PM CDT Narrative 01/31/2022 3:21 PM CDT EXAM DESCRIPTION: DEXA AXIAL SKELETON BONE DENSITY 1 OR MORE SITES REASON FOR STUDY: 66 y/o year old F with given history of screening. Campaign Analyst/Model: [employer] A (S/N [id number]) CLINICAL INFORMATION: Current height: 65 inches Maximum [...] Amrita Dennison M.D. TB: TB Report ID: [id number] Reading Location: [facility] Procedure Note MiddletonAmrita MD - 01/31/2022 EXAM DESCRIPTION: DEXA AXIAL SKELETON BONE DENSITY 1 OR MORE SITES REASON FOR STUDY: 66 y/o year old F with given history ofscreening. Campaign Analyst/Model: [employer] A (S/N [id number]) CLINICAL INFORMATION: Current height: 65 inches Maximum [...] Amrita Dennison M.D. 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
[2025-05-25 06:08] LABS: Calprotectin, Fecal 49 ug/g (0-120)
== END 2025-05-23 08:05 | disposition home or self-care (01) ==
LOC: ANHLAB 08:05
PROVIDERS: PCP Family Medicine; Visit Provider Nurse Practitioner Family
DX: R10.9 Unspecified abdominal pain (principal); R19.7 Diarrhea, unspecified; R19.5 Other fecal abnormalities
CPT/HCPCS: 83993

== ENCOUNTER 2025-07-08 15:51 | Emergency (ER) | payer MEDICARE, OTHER, SELFPAY ==
--- OUTSIDE RECORDS SUMMARY | 2025-07-08 15:54 | XMS_ITS | Clinical Summary ---
Author Organization [facility] Address [address] [place] [address] Care Team Providers Care Cattle Dehorner Name Role Phone Amarilis Mcfarlane MD Primary [...] tablet TAKE 1 TABLET BY MOUTH DAILY SHIPPER/RECEIVER BEFORE BREAKFAST Active losartan (COZAAR) 100 MG tablet Take 1 tablet (100 mg total) by mouth daily. 5 Active meclizine (ANTIVERT) 25 MG tablet TAKE 1 TABLET(25 MG) BY MOUTH THREE TIMES DAILY NEEDED FOR DIZZINESS 5 Active omeprazole (PRILOSEC) 20 MG capsule Take 1 capsule (20 mg total) by mouth. 5 Active Active Problems Problem Noted Date Diagnosed Date Paroxysmal ventricular tachycardia 03/06/2025 Overview (03/06/2025): Medtronic Evera DCICD implanted 07/18/2014 for Paroxsymal VT. SSS (sick sinus syndrome) 12/10/2024 Overview (12/10/2024): Medtronic Evera ICD implanted 07/18/2014 for SSS Pericardial effusion 08/19/2024 Mixed hyperlipidemia 07/22/2024 Postoperative hypothyroidism 01/01/2024 Tingling in extremities 01/01/2024 Sphincter of Oddi dysfunction 07/22/2023 Overview (11/25/2024): Followed by GI Primary hypertension 05/26/2023 H/O cardiac arrest 11/13/2021 Family history of heart disease 05/11/2021 Nonsustained ventricular tachycardia 05/11/2021 PVC's (premature ventricular contractions) 05/11 QT prolongation 05/11/2021 GERD (gastroesophageal reflux disease) ICD (implantable cardioverter-defibrillator) in place 05/27/2016 Overview (12/10/2024): Medtronic Evera ICD implanted 07/18/2014 for SSS History of thyroid cancer 06/17/2015 Defibrillator discharge 06/17/2015 Encounters Date Type Department Care Team Description 05/30/2025 2:40 PM CDT Allied Health/Nurse Visit [facility] [address] [address] Felix Wild MD Remote Device Check 05/30/2025 Travel 04/29/2025 Telephone [facility] [address] [address] Jaki Coelho RN Question from Last 3 Months Family History Medical History Relation Comments Cancer Brother 1 Lymphoma Diabetes Brother 2 Heart Disease Brother 2 [place] Brother 2 Diabetes Brother 3 Diabetes Father Heart Disease Father [place] Father Hyperlipidemia Mother Hypertension Mother Stroke Paternal [...] on file Legal Sex Female 3:46 PM SURFACE ROOM SHOP OPTICIAN Gender Identity Not on file Sexual Orientation [...] Care Team (Late st Contact Info) Description 08/29/2025 3:05 PM SURFACE ROOM SHOP OPTICIAN Allied Health/Nurse Visit [facility] [facility] [address] [facility], [facility] [address] [place] [address] Felix Wild MD [address] [facility]. [address] [place] [address] 12/15/2025 9:45 AM CDT Office Visit [facility] [address] [facility], [place] [address] [place] [address] Felix Wild MD Three [facility]. [address] [place], [place] [address] Olesya Johnston, MOLD SPRAYER [address] [facility] [address] [place], [place] [address] Health Maintenance Due Date Last Done Comments Colorectal Cancer Screening Colonoscopy (10 Years) 1955 Hepatitis C 1974 Zoster Vaccines (1 of 2) 2006 Annual Medicare Wellness Visit 2021 COVID-19 Vaccine ( season) 2025 09/15/2023, 11/13/2020, 10/21/2020 Influenza Adult (#1) 2025 06/18/2024, 06/29/2020, 06/16/2019, Additional history exists Mammogram Screening 07/16/2026 07/16/2024, 07/15/2023, 07/12/2022, Additional history exists DTaP, Tdap and Td Vaccines (2 - Td or Tdap) 09/13/2033 09/13/2023, 09/03/2023 Dexa Scan (General) Completed 01/31/2022, Pneumococcal Vaccine: 50+ Years Completed 12/09/2022, 10/31/2021 RSV Immunization or 60+ Years Completed 09/15/2023 Hepatitis A Vaccines Aged Out No long er eligible based on patient's age to complete this topic Meningococcal B Vaccine Aged Out No l onger eligible based on patient's age to complete this topic Meningococcal Vaccine Aged Out No adamaris pam eligible based on patient's age to complete this topic RSV Immunizations Under 20 Months Aged Out No longer eligible based on patient's age to complete this topic Medical Devices Implanted Type Area Senior Front End Web Developer Device Identifier Shelf Expiration Date Model / Serial / Lot [id number]- [facility]-07/18/2014 Implanted:Qty: 1 on 07/18/2014 by Yoan Bell MD ICD [employer] CARDIAC RHYTHM AND HEART FAILURE - DIV M [id number] / [id number] / Rv Lead Rlzmnez-[id number] i-07/18/2014 Implanted:Qty: 1 on 07/18/2014 by Yoan Bell MD Lead Implant [employer] CARDIAC RHYTHM AND HEART FAILURE - DIV M [id number] / [id number] / Description:RV-[place] Ra Lead [id number] i-07/18/2014 Implanted:Qty: 1 on 07/18/2014 by Yoan Bell MD Lead Implant [employer] CARDIAC RHYTHM AND HEART FAILURE - DIV M [id number] / [id number] / Description:RA-Appendage Insurance MEDICARE [facility] Cyber-Rain Care Teams Cattle Dehorner Relationship Specialty Start Date End Date Amarilis Mcfarlane MD [address] [facility] [address] [place] [address] PCP - General FAMILY PRACTICE 12/09/24
--- OUTSIDE RECORDS SUMMARY | 2025-07-08 15:54 | XMS_ITS | Encounter Summary ---
Author Organization [facility] Facility Care Team Providers Care Manugrapher Name Role Phone Brielle Mack MD Primary Care Provider Amarilis Mcfarlane MD Primary Care Provi julito Bayron Barclay DO Unavailable [phone] Christine Roper Unavailable [phone] Encounter Details Date Type Department Care Team (Latest Contact Info) Description 08/29/2016 Orders Only [facility] CLINCONV ProviderIvonne MD [address] [place] [id number] Social History Tobacco Use Types Packs/Day Years Used Date Smoking Tobacco: Never Assessed Comments Unknown Sex and Gender Information Value Date Recorded Sex Assigned at Not on file Legal Sex Female 7:51 AM WOUND/OSTOMY CLINICAL NURSE SPECIALIST Gender Identity Female 06/06/2023 10:34 AM CDT Sexual Orientation Straight 06/06/2023 10 :34 AM CDT documented as of this encounter Plan of Treatment Not on file documented as of this encounter Procedures Procedure Name Priority Date/Time Associated Diagnosis Comments CARDIOLOGY REPORT 09/04/2016 12: 00 AM WOUND/OSTOMY CLINICAL NURSE SPECIALIST CARDIOLOGY REPORT 08/29/2016 12: 00 AM WOUND/OSTOMY CLINICAL NURSE SPECIALIST documented in this encounter Results * CARDIOLOGY REPORT (09/04/2016 12:00 AM WOUND/OSTOMY CLINICAL NURSE SPECIALIST) Anatomical Region Laterality Modality Other Narrative 09/04/2016 12:00 AM WOUND/OSTOMY CLINICAL NURSE SPECIALIST Ordered by an unspecified provider. us Historical Provider [facility] PROCE DURES Final Result * CARDIOLOGY REPORT (08/29/2016 12:00 AM WOUND/OSTOMY CLINICAL NURSE SPECIALIST) Anatomical Region Laterality Modality Other Narrative 08/29/2016 12:00 AM WOUND/OSTOMY CLINICAL NURSE SPECIALIST Ordered by an unspecified provider. us Historical Provider [facility] C[facility] PROCE DURES Final Result documented in this encounter Visit Diagnoses Not on filedocumented in this encounter Additional Health Concerns Infection Onset Date Last Indicated Resolved Time COVID: Suspected 09/13/2021 09/13/2021 09/14/2021 12:34 AM WOUND/OSTOMY CLINICAL NURSE SPECIALIST COVID: Suspected 05/25/2024 05/25/2024 05/25/2024 9:56 AM CDT documented as of this encounter Care Teams Manugrapher Relationship Specialty Start Date End Date Brielle Mack MD PCP - General 10/23/17 06/28/20 Amarilis Mcfarlane MD [address] [place], [place] [address] PCP - General Family Medicine 06/29/20 Bayron Barclay DO [address] [place] [address] MEDICAL ONCOLOGY, [facility] [address] [place], [place] [id number] Medical Oncologist/Helicopter Technician Hematology and Oncology 04/28/23 Christine Roper PA [address] [place], [place] [address] Physician Shot Hole Driller Family Medicine 03/03/25 documented as of this encounter
--- OUTSIDE RECORDS SUMMARY | 2025-07-08 15:54 | XMS_ITS | Encounter Summary ---
Author Organization [facility] Facility Care Team Providers Care Seasonal Warehouse Associate Name Role Phone Brielle Mack MD Primary Care Provider Amarilis Mcfarlane MD Primary Care Provi julito Bayron Barclay DO Unavailable [phone] Christine Roper Unavailable [phone] Encounter Details Date Type Department Care Team (Latest Contact Info) Description 05/27/2016 Orders Only [facility] CLINCONV ProviderIvonne MD [address] [place] [address] Social History Tobacco Use Types Packs/Day Years Used Date Smoking Tobacco: Never Assessed Comments Unknown Sex and Gender Information Value Date Recorded Sex Assigned at Not on file Legal Sex Female 7:51 AM COLLECTIONS ASSISTANT Gender Identity Female 06/06/2023 10:34 AM [...] COVID: Suspected 09/13/2021 09/13/2021 09/14/2021 12:34 AM COLLECTIONS ASSISTANT COVID: Suspected 05/25/2024 05/25/2024 05/25/2024 9:56 AM CDT documented as of this encounter Care Teams Seasonal Warehouse Associate Relationship Specialty Start Date End Date Brielle Mack MD PCP - General 10/23/17 06/28/20 Amarilis Mcfarlane MD [address] [place] [address] PCP - General Family Medicine 06/29/20 Bayron Barclay DO [address] [place] [address] MEDICAL ONCOLOGY, [facility] [address] [place] [address] Medical Oncologist/Help Desk Support Specialist Hematology and Oncology 04/28/23 Christine Roper PA [address] [place] [address] Physician Hr Payroll Coordinator Family Medicine 03/03/25 documented as of this encounter
--- OUTSIDE RECORDS SUMMARY | 2025-07-08 15:54 | XMS_ITS | Encounter Summary ---
Author Organization [facility] Facility Care Team Providers Care Forest Fire Prevention Manager Name Role Phone Brielle Mack MD Primary Care Provider Amarilis Mcfarlane MD Primary Care Provi julito Bayron Barclay DO Unavailable [phone] Christine Roper Unavailable [phone] Encounter Details Date Type Department Care Team (Latest Contact Info) Description 12/01/2017 Orders Only [facility] CLINCONV Provider, MD Ivonne [address] [place] [address] Social History Tobacco Use Types Packs/Day Years Used Date Smoking Tobacco: Never Assessed Comments Unknown Sex and Gender Information Value Date Recorded Sex Assigned at Not on file Legal Sex Female 7:51 AM ASSOCIATE PROFESSOR OF LIBRARY MEDIA Gender Identity Female 06/06/2023 10:34 AM CDT [...] provider. Historical Provider MD [facility] YAMILET ZHANG Final Result documented in this encounter Visit Diagnoses Not on filedocumented in this encounter Additional Health Concerns Infection Onset Date Last Indicated Resolved Time COVID: Suspected 09/13/2021 09/13/2021 09/14/2021 12:34 AM ASSOCIATE PROFESSOR OF LIBRARY MEDIA COVID: Suspected 05/25/2024 05/25/2024 05/25/2024 9:56 AM CDT documented as of this encounter Care Teams Forest Fire Prevention Manager Relationship Specialty Start Date End Date Brielle Mack MD PCP - General 10/23/17 06/28/20 Amarilis Mcfarlane MD [address] [place], [place] [phone] PCP - General Family Medicine 06/29/20 Bayron Barclay DO [address] [place] [address] MEDICAL ONCOLOGY, [facility] [address] [place], [place] [id number] Medical Oncologist/Certified Tumor Registrar Hematology and Oncology 04/28/23 Christine Roper PA [address] [place], [place] [id number] Physician Occupational Therapist Assistant Family Medicine 03/03/25 documented as of this encounter
--- OUTSIDE RECORDS SUMMARY | 2025-07-08 15:54 | XMS_ITS | Clinical Summary ---
Author Organization [facility] Address [address] [place] [address] Care Team Providers Care Microbiology Lab Manager Name Role Phone Amarilis Mcfarlane MD Primary Care Provi julito Bayron Barclay DO Unavailable [phone] Christine Roper Unavailable [phone] Allergies Active Allergy Reactions Criticality Noted Date [...] 08/25/20 23 Active cloNIDine (CATAPRES) 0.1 mg tabletIndications :Elevated blood pressure reading TAKE 1 TABLET(0.1 MG) BY MOUTH DAILY NEEDED FOR HIGH BLOOD PRESSURE 15 tablet 11/24/19 25 Active famotidine (PEPCID) 20 mg tablet Take 1 tablet (20 mg total) by mouth 2 (two) times a day as needed for heartburn Active losartan (COZAAR) 100 mg tabletIndications :Primary hypertension Take 1 tablet (100 mg total) by mouth daily 90 tablet 2 12/28/19 25 Active potassium chloride ER 10 mEq CR tabletIndications :ICD (implantable cardioverter-defi brillator) in place TAKE 1 CAPSULE(10 MEQ) BY MOUTH TWICE DAILY 200 tablet/caps ule 1 03/23/20 25 Active meclizine (ANTIVERT) 25 mg tablet TAKE 1 TABLET(25 MG) BY MOUTH THREE TIMES DAILY NEEDED FOR DIZZINESS 30 tablet 06/09/20 25 Active Synthroid 88 mcg tablet Take one tab daily and half on Friday 90 tablet 11 06/21/20 25 Active meclizine (ANTIVERT) 25 mg tablet TAKE 1 TABLET(25 MG) BY MOUTH THREE TIMES DAILY NEEDED FOR DIZZINESS 30 tablet 11/25/19 25 2024 Discontinued levothyroxine (Synthroid) 88 mcg tabletIndications :Postoperative hypothyroidism Take 1 tablet (88 mcg total) by mouth press hand supervisor before breakfast 90 tablet 1 01/29/20 25 2024 Discontinued(A lternate therapy) levothyroxine (SYNTHROID) 88 mcg tablet Take 0.5 tablets (44 mcg total) by mouth once a week 2024 Discontinued(A lternate therapy) Active Problems Problem Noted Date Diagnosed Date [...] 1 tablet (125 mcg total) by mouth press hand supervisor before breakfast Thyroid Function [place]; Future Erythrocyte sedimentation rate; Future Comprehensive metabolic panel; Future BMI 28.0-28.9,adult 10/04/2024 Assessment & Plan (10/04/2024 2:48 PM FIRE OFFICIAL): BMI Follow-up includes: education provided. Pericardial effusion [...] Future Postoperative hypothyroidism 01/01/2024 Assessment & Plan (06/21/2025 9:17 AM CDT): Her labs were reviewed with the patient, biochemically she is euthyroid. Overall she feels better however complain of occasional hot flushes and palpitation. Last TSH was in May. Will repeat TSH with reflex free T4 in 6 weeks, since patient has history of wide fluctuation in TFTs. For now she will continue Synthroid 88 mcg daily and half tablet on Friday. Proper way of taking Synthroid and how to make up for missed Synthroid was discussed. Further adjustment in dose will depend on her TFTs. Orders: TSH W/REFL FT4; Future Assessment & Plan (05/18/2025 9:10 AM CDT): Orders: Thyroid Function [place]; Future Assessment & Plan (03/25/2025 2:22 PM [...] (12/08/2024 3:09 PM CDT): Orders: Thyroid Function [place]; Future Assessment & Plan (11/25/2024 11:51 AM CDT): Orders: Synthroid 125 mcg tablet; Take 1 tablet (125 mcg total) by mouth press hand supervisor before breakfast Thyroid Function [place]; Future Erythrocyte sedimentation rate; Future Comprehensive metabolic panel; Future Assessment & Plan (10/04/2024 2:50 PM FIRE OFFICIAL): Chronic. Elevated mildly at last 2 lab [...] CDT): Assessment & Plan (10/04/2024 2:52 PM FIRE OFFICIAL): Chronic. Mostly controlled. Patient's average readings from [...] week. Assessment & Plan (07/22/2023 3:39 PM FIRE OFFICIAL): Chronic, stabe Continue current regimen Assessment & Plan (06/10/2023 11:28 AM CDT): Chronic, improved Continue losartan Continue clonidine only if needed Continue to follow with Cardiology Update me with any changes Call for questions Low bone mass 05/30/2022 Assessment & Plan (10/04/2024 2:49 PM FIRE OFFICIAL): Chronic. Discussed recommendation for 500 mg of calcium daily or 3 servings of calcium in diet daily. Discussed recommendation for vitamin-D 2570-7071 international units daily. She may try to get this all from a multivitamin. Assessment & Plan (07/22/2023 3:39 PM FIRE OFFICIAL): Chronic, stable Continue vitamin d Follow up testing ordered Assessment & Plan (05/30/2022 10:13 AM CDT): Continue vitamin d, calcium Strength training, walking H/O cardiac arrest 11/13/2021 Assessment & Plan (07/22/2023 3:37 PM FIRE OFFICIAL): Chronic, stable Managed by cardiology Update me with any changes or concerns Assessment & Plan (05/30/2022 10:11 AM CDT): Following with cardiology Other headache syndrome 10/31/2021 Assessment & Plan (07/22/2023 3:39 PM FIRE OFFICIAL): Acute, resolved Continue to monitor Update me if anything changes or worsens Assessment & Plan (05/30/2022 10:14 AM CDT): Occasional headaches Keep track of headaches Avoid triggers Update me if her symptoms change or worsen Assessment & Plan (10/31/2021 1:02 PM FIRE OFFICIAL): Differential migraine versus cluster versus other With [...] 05/11/2021 Assessment & Plan (07/22/2023 3:40 PM FIRE OFFICIAL): Chronic, stable Managed by cardiology S/p ICD placement Assessment & Plan (05/30/2022 10:13 AM CDT): S/p pacemaker Continue to follow with cardiology PVC's (premature ventricular contractions) 05/11 Assessment & Plan (07/22/2023 3:40 PM FIRE OFFICIAL): Chronic, stable Managed by cardiology Update me with any changes or concerns Assessment & Plan (05/30/2022 10:13 AM CDT): S/p pacemaker Continue to follow with cardiology Nonsustained ventricular tachycardia 05/11/2021 Assessment & Plan (07/22/2023 3:39 PM FIRE OFFICIAL): Chronic, stable Managed by cardiology S/p ICD placement Assessment & Plan (05/30/2022 10:13 AM CDT): S/p pacemaker Continue to follow with cardiology Family history of heart disease 05/11/2021 Assessment & Plan (07/22/2023 3:29 PM FIRE OFFICIAL): Chronic, stable Managed by cardiology Continue current regimen Assessment & Plan (05/30/2022 10:10 AM CDT): Chronic, stable Continue to follow with cardiology Encounter for Medicare annual wellness exam 04/08 Overview (07/22/2024): Encouraged healthy diet and activity Please look into a power of assistant prosecuting attorney or living will Health Maintenance: Last mammogram:07/31, 08/01- WNL Last DEXA: 01/27- Low bone mass-ordered Last colonoscopy: 06/28-repeat in 10 years Last Tdap: encouraged Last pneumonia: up to date Last Shingrix: reviewed Last Flu: reviewed Last COVID: reviewed Assessment & Plan (07/22/2024 8:04 AM FIRE OFFICIAL): Encouraged healthy diet and activity Please look into a power of assistant prosecuting attorney or living will Health Maintenance: Last mammogram:07/31, 08/01- WNL Last DEXA: 01/27- Low bone mass-ordered Last colonoscopy: 06/28-repeat in 10 years Last Tdap: encouraged Last pneumonia: up to date Last Shingrix: reviewed Last Flu: reviewed Last COVID: reviewed Assessment & Plan (07/22/2023 3:28 PM FIRE OFFICIAL): Encouraged healthy diet and activity Please look into a power of assistant prosecuting attorney or living will Health Maintenance: Last mammogram:07/31- WNL Last DEXA: 01/27- Low bone mass Last colonoscopy: 06/28-repeat in 10 years Last Tdap: encouraged Last pneumonia: up to date Last Shingrix: reviewed Last Flu: reviewed Last COVID: reviewed Assessment & Plan (05/30/2022 10:09 AM CDT): Encouraged healthy diet and activity Please look into a power of assistant prosecuting attorney or living will Health Maintenance: Last mammogram:scheduled Last DEXA: 2020- Low bone mass Last colonoscopy: 06/28-repeat in 10 years Last Tdap: encouraged Last pneumonia: due second one Last Shingrix: reviewed Last Flu: reviewed Last COVID: reviewed Assessment & Plan (04/25/2021 2:08 PM CDT): Encouraged healthy diet and activity Please look into a power of assistant prosecuting attorney or living will Wear sun screen, [...] (heartburn) Assessment & Plan (07/22/2023 3:36 PM FIRE OFFICIAL): Chronic, stable Continue prilosec for now Consider [...] untreated Assessment & Plan (10/31/2021 1:01 PM FIRE OFFICIAL): With esophagitis and gastritis on her CT scan Continue Prilosec b.i.d. 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 commercial hvac service technician Update me after the visit Assessment & Plan (04/25/2021 12:16 PM CDT): Continue omeprazole Reviewed the risk and benefits of medication Grief 08/01/2020 Assessment & Plan (07/22/2023 3:37 PM FIRE OFFICIAL): Chronic, stable Continue supportive care Assessment & Plan (05/30/2022 10:11 AM CDT): Improved, doing well with supportive care Assessment & Plan (04/25/2021 12:15 PM CDT): Patient with a significant amount of loss over the last year Continue supportive care Update me if her mood worsens or changes Assessment & Plan (08/01/2020 1:22 PM FIRE OFFICIAL): Some of her symptoms may be related [...] Future Assessment & Plan (07/22/2023 3:38 PM FIRE OFFICIAL): Chronic, stable Managed by cardiology Assessment & [...] Orders: Ambulatory referral to Endocrinology Thyroid Function [place]; Future Thyroglobulin antibodies; Future Assessment & Plan (03/03/2025 9:16 AM CDT): Orders: Ambulatory referral to Endocrinology; Future Assessment & Plan (12/21/2024 12:26 PM CDT): Assessment & Plan (07/22/2023 3:38 PM FIRE OFFICIAL): Chronic, stable Managed by oncology Continue to monitor Assessment & Plan (05/30/2022 10:12 AM CDT): Chronic, stable Follows with oncology Continue synthroid Assessment & Plan (04/25/2021 2:10 PM CDT): Continue levothyroxine at current dose Continue to follow with Dr Barclay Resolved Problems Problem Noted Date Diagnosed Date Resolved Date Hypokalemia 06/02/2023 07/22/2024 Assessment & Plan (07/22/2023 3:38 PM FIRE OFFICIAL): Chronic,s table Continue replacement History of torsades de pointes 05/08/2021 07/22/2024 Assessment & Plan (07/22/2023 3:38 PM FIRE OFFICIAL): Chronic, stable Managed by cardiology S/p pacemaker Assessment & Plan (05/30/2022 10:12 AM CDT): S/p pacemaker Continue to follow with cardiology Allergic rhinitis 04/25/2021 07/22/2024 Assessment & Plan (07/22/2023 3:29 PM FIRE OFFICIAL): Chronic, stable Asymptomatic Continue to monitor Assessment & Plan (05/30/2022 10:09 AM CDT): Chronic, stable Assessment & Plan (04/25/2021 2:11 PM CDT): Continue flonase Thyroid cancer ([facility]/HCC) 04/17/2018 Cardiac arrest 05/27/2016 11/13/2021 Assessment & Plan (04/25/2021 12:15 PM CDT): Continue to follow with Cardiology ICD in place Update me with any changes Assessment & Plan (01/13/2020 1:11 PM CDT): No indication for antiarrhythmics. Continue Inderal as needed for palpitations Assessment & Plan (01/07/2019 3:45 PM CDT): Intraop. Etiology unclear Defibrillator discharge 06/17/2015 090 11/2020 Encounters Date Type Department Care Team Description 07/08/2025 Telephone [facility] Medical [facility] Family Medicine [address] [phone] Amarilis Mcfarlane MD 06/21/2025 8:30 AM CDT Office Visit [facility] [address] [place] [phone] Candi Le MD Postoperative hypothyroidism (Primary Dx) 06/07/2025 12:05 PM CDT Lab [facility] Lab [address] [place] [address] Postoperative hypothyroidism 06/07/2025 Results Follow-Up [facility] of [address] [address] Talita Preciado MA Thyroid Function [place] 06/07/2025 Telephone [facility] of [address], [place] [address] Candi Le MD 06/07/2025 Telephone [facility] of [address] [phone] Candi Le MD lab order 05/25/2025 Results Follow-Up [address] [phone] mAarilis Mcfarlane MD TSH W/REFL FT4 05/23/2025 Orders Only [address] [address] Amarilis Mcfarlane MD 05/18/2025 8:30 AM CDT Office Visit [address] [address] Amarilis Mcfarlane MD Postoperative hypothyroidism (Primary Dx); Insomnia, unspecified type; Abnormal CT of the chest; Renal cyst, right; Primary hypertension; Diarrhea, unspecified type; Postmenopausal status 05/11/2025 Results Follow-Up [facility] [address] [place] [phone] Nadira Beck, ERIC Thyroid 05/10/2025 Results Follow-Up [address] [address] Chest WO Contrast 05/06/2025 6:30 AM CDT - 05/06/2025 11:59 PM CDT Hospital Encounter [facility] - Interventional Radiology [address] [place] [phone] Renal cyst, right Discharge Disposition: Discharge to home or self care 05/05/2025 Telephone [facility] - Interventional Radiology [address] [place] [phone] Carlton Smith, RN 05/05/2025 Telephone [facility] - Interventional Radiology [address] [place] [phone] Carlton Smith RN 05/05/2025 Orders Only [facility] - Interventional Radiology [address] [place] [phone] Carlton Smith, RN 05/03/2025 Telephone [facility] Medical Group Family Medicine [address] [phone] Amarilis Mcfarlane MD 04/28/2025 Telephone Radiology [address] [place] [address] Bairon Schwartz MD 04/25/2025 9:45 AM CDT Office Visit [facility] [address] [facility] [address] [place] [address] Bayron Barclay DO Thyroid cancer (CMS/HCC) (HCC) (Primary Dx); History of thyroid cancer 04/22/2025 8:30 AM CDT Lab [facility] Lab [address] [place] [address] History of thyroid cancer 04/22/2025 8:15 AM CDT Lab [facility] [address] [place] [address] History of thyroid cancer 04/22/2025 7:57 AM CDT - 04/22/2025 11:59 PM CDT Hospital Encounter [facility] Ultrasound [address] [place] [address] History of thyroid cancer Discharge Disposition: Discharge to home or self care 04/22/2025 Results Follow-Up [facility] of [address], [place] [address] Talita Preciado MA Thyroid Function [place], Thyroglobulin antibodies 04/20/2025 2:00 PM CDT Office Visit [address] [address] Carmelina Gonzalez NP Urinary frequency (Primary Dx); Renal cyst; Abdominal pain; Diarrhea, unspecified type; Abnormal findings on diagnostic imaging of lung 04/15/2025 7:54 AM CDT - 04/15/2025 11:59 PM CDT Hospital Encounter [address] of the abdomen Discharge Disposition: Discharge to home or self care 04/14/2025 2:00 PM CDT Office Visit [address] [phone] Sylvester Blas MD Diarrhea, unspecified type (Primary Dx) 04/14/[address] [address] Amarilis Mcfarlane MD 04/13/[address] [address] Sylvester Blas MD 04/11/2025 2:00 PM CDT Office Visit [address] [address] Sylvester Blas MD Abnormal findings on diagnostic imaging of lung (Primary Dx) 04/11/[address] [address] Sylvester Blas MD 04/07/[address] [address] Amarilis Mcfarlane MD from Last 3 Months Immunizations Immunization Administration [...] CAD. Heart attack Mother age 90 of [place] Hypertension Mother Breast cancer Sister Relation Name [...] on file Legal Sex Female 7:51 AM FIRE OFFICIAL Gender Identity Female 06/06/2023 10:34 AM CDT Sexual Orientation Straight 06/06/2023 10 :34 AM CDT Obstetrics History Para Term AB IAB SAB Ectopic Multiple Livin g Live Births 3 3 3 Date Outcome GA Total Labor Labor/2nd/3rd Weight Sex Type Anes PTL Fela A1 A5 Name Clin Term Term Term Last Filed Vital Signs Vital Sign Reading Time Taken Comments Blood Pressure 126/78 06/21/2025 8:33 AM CDT Pulse 68 06/21/2025 8:33 AM CDT Temperature 36.8 C (98.3 F) 06/21/2025 8:33 AM CDT Respiratory Rate 12 05/18/2025 8:33 AM CDT Oxygen Saturation 98% 05/18/2025 8:33 AM CDT Inhaled Oxygen Concentration - - Weight 77 kg (169 lb 12.8 oz) 06/21/2025 8:33 AM CDT Height 165.1 cm (5' 5) 06/21/2025 8:33 AM CDT Body Mass Index 28.26 06/21/2025 8:33 AM CDT Plan of Treatment Health [...] Associated Diagnosis Comments THYROID FUNCTION CASCADE Routine 06/07/2025 12:16 PM CDT Postoperative hypothyroidism TSH W/REFL FT4 Routine 05/23/2025 7:32 AM CDT US GUIDED ASPIRATION ABSCESS HEMATOMA CYST SOFT [...] AM CDT Abnormal CT of the abdomen HM MAMMOGRAPHY Routine 12/27/2024 1:02 PM CDT HEPATITIS C ANTIBODY Routine 06/04/2022 9:22 AM CDT Need for hepatitis C screening test DEXA AXIAL SKELETON BONE DENSITY 1 OR MORE SITES Schedule Routine, Read Routine (OP Routine) 01/31/2022 9:03 AM CDT Postmenopausal status COLONOSCOPY Routine 06/27/2021 from Last 3 Months or Most Recently Relevant to Health Maintenance Results * Thyroid Function [place] (06/07/2025 12:16 PM CDT) TSH 1.31 0.30 - 4.20 mcIUnit/mL Comment:Testing performed by : [facility], [address] [place] [address], [place]., [address] Blood 06/07/2025 12:1 6 PM CDT 06/07/2025 12:19 PM CDT us Candi Le MD LAB BLOOD ORDERABLES Final Resul t SHARON [address] [facility] Department [place] [address] * TSH W/REFL FT4 (05/23/2025 7:32 AM CDT) TSH 1.39 0.40 - 4.50 mIU/L [facility] Bill 05/23/2025 7:32 AM CDT 05/23/2025 7:33 AM CDT us Amarilis Mcfarlane MD LAB BLOOD ORDERABLE S Final Result Performing Organization Address City/[facility]/ZIP Co de Phone Number [facility] Bill [address] [place] [address] * US Guided Aspiration Abscess Hematoma Cyst [...] was obtained. Prior to beginning the procedure, [place] Protocol was used to confirm the patient's [...] dilating the tract to 8 Fr. A 8.5-Mohawk Brock-Conrad was then advanced over the guidewire. [...] was obtained. Prior to beginning the procedure, [place] Protocol was used to confirm the patient's [...] dilating the tract to 8 Fr. A 8.5-[place] Brock-Conrad was then advanced over the guidewire. [...] cyst. Electronically signed by: Bairon Schwartz M.D. us Jake Wall MD IMG US PROCEDURES Final [...] Janes Rodrigues M.D. RB: CELESTINO Report ID: [id number] Reading Location: [place] [address] Procedure Note Janes Rodrigues MD - 05/11/2025 [...] Janes Rodrigues M.D. RB: CELESTINO Report ID: [id number] Reading Location: [place] [address] Bayron Barclay DO [facility] US PROCEDURES Final Resu lt * Thyroglobulin antibodies (04/22/2025 8:28 AM CDT) Anti-thyroglobulin <1.8 <4.0 IUnits/mL [place] [facility] Comment: ADDITIONAL INFORMATION PLEASE NOTE: The given thyroglobulin antibody (TgAb) reference cutoff of <4.0 IU/mL is for the evaluation of autoimmune thyroiditis. A cutoff of <1.8 IU/mL may be more suitable for the detection of potential thyroglobulin antibody (TgAb) interference in thyroglobulin immunoassays. The thyroglobulin antibody testing method is an immunoenzymatic assay manufactured by [employer] and performed on the [employer] DXI 800. Values obtained from different assay methods or kits may be different and cannot be used interchangeably. The results cannot be interpreted as absolute evidence for the presence or absence of malignant disease. Test Performed by: [facility] [address] [place] [address] Barley Steeper: Jayson Baca Ph.D.; CLIA# [id number] Testing performed by: [address] [address] Blood 04/22/2025 8:28 AM CDT 04/22/2025 8:33 AM CDT Candi Le MD LAB BLOOD ORDERABLES Final Resul t Performing Organization Address [facility] Co de Phone Number OWEN[address] [employer] [place] [address] [place] [facility] * Thyroid Function [place] (04/22/2025 8:28 AM CDT) TSH 2.76 0.30 - 4.20 mcIUnit/mL Comment:Testing performed by : [address] [address] Blood 04/22/2025 8:28 AM CDT 04/22/2025 8:34 AM CDT Candi Le MD LAB BLOOD ORDERABLES Final Resul t Performing Organization Address City/[facility] Co de Phone Number OWEN[address] [place] [address] * (ABNORMAL) eGFR (04/22/2025 8:27 AM CDT) [...] was last reviewed 2021. Testing performed by: [address] [address] Blood 04/22/2025 8:27 AM CDT 04/22/2025 8:46 AM CDT Bayron Barclay DO LAB BLOOD ORDERABLES Final R esult [facility] [address] [facility] Department [place] [address] * Differential, auto (04/22/2025 8:27 AM CDT) Neutrophil abs 4.09 1.50 - 6.50 K/cumm Comment:Testing performed by : [address] [address] Imm gran abs 0.04 0.00 - 0.10 K/cumm SHARON Comment:Testing performed by : [address] [address] Lymphocyte abs 1.11 0.80 - 3.30 K/cumm [facility] Comment:Testing performed by : [address] [address] Monocyte abs 0.34 0.20 - 0.80 K/cumm SHARON Comment:Testing performed by : [address] [address] Eosinophil abs 0.14 0.00 - 0.50 K/cumm [facility] Comment:Testing performed by : [address] [address] Basophil abs 0.04 0.00 - 0.10 K/cumm [facility] Comment:Testing performed by : [address] [address] Neutrophil pct 71.0 % [facility] Comment: Interpretive Data Percent cell count reference ranges are not reported, since discordance with absolute values may lead to misinterpretation of CBC data. Current Interpretive Data was last revised on 2017. Testing performed by: [address] [address] Imm gran pct 0.7 % [facility] Comment: Interpretive Data Percent cell count reference ranges are not reported, since discordance with absolute values may lead to misinterpretation of CBC data. Current Interpretive Data was last revised on 2017. Testing performed by: [address] [address] Lymphocyte pct 19.3 % [facility] Comment: Interpretive Data Percent cell count reference ranges are not reported, since discordance with absolute values may lead to misinterpretation of CBC data. Current Interpretive Data was last revised on 2017. Testing performed by: [address] [address] Monocyte pct 5.9 % [facility] Comment: Interpretive Data Percent cell count reference ranges are not reported, since discordance with absolute values may lead to misinterpretation of CBC data. Current Interpretive Data was last revised on 2017. Testing performed by: [address] [address] Eosinophil pct 2.4 % [facility] Comment: Interpretive Data Percent cell count reference ranges are not reported, since discordance with absolute values may lead to misinterpretation of CBC data. Current Interpretive Data was last revised on 2017. Testing performed by: [address] [address] Basophil pct 0.7 % [facility] Comment: Interpretive Data Percent cell count reference ranges are not reported, since discordance with absolute values may lead to misinterpretation of CBC data. Current Interpretive Data was last revised on 2017. Testing performed by: [address] [address] Blood 04/22/2025 8:27 AM CDT 04/22/2025 8:32 AM CDT Bayron Barclay DO LAB BLOOD ORDERABLES Final R esult [facility] [address] [facility] Department [place] [address] * CBC with auto differential (04/22/2025 8:27 AM CDT) WBC 5.76 3.80 - 9.90 K/cumm Comment:Testing performed by : [address] [address] Hgb 13.9 11.9 - 15.5 g/dL SHARON Comment:Testing performed by : [address] [address] Hct 41.5 35.6 - 45.5 % [facility] Comment:Testing performed by : [address] [address] Plt 216 150 - 400 K/cumm SHARON Comment:Testing performed by : [address] [address] MPV 10.6 9.1 - 12.3 fL [facility] Comment:Testing performed by : [address] [address] RBC 4.66 3.90 - 5.20 M/cumm SHARON Comment:Testing performed by : [address] [address] MCV 89.1 81.3 - 96.4 fL SH[facility]ON Comment:Testing performed by : [address] [address] MCH 29.8 27.1 - 33.3 pg SHARON QUINN Comment:Testing performed by : [address] [address] MCHC 33.5 32.3 - 35.7 g/dL SH[facility] QUINN Comment:Testing performed by : [address] [address] RDW CV 12.7 11.1 - 14.9 % SHARON QUINN Comment:Testing performed by : [address] [address] [address] RDW SD 40.4 35.7 - 48.1 fL SHARON QUINN Comment:Testing performed by : [address] [address] NRBC abs 0.00 0.00 - 0.01 K/cumm SHARON QUINN Comment:Testing performed by : [address] [address] Blood 04/22/2025 8:27 AM CDT 04/22/2025 8:32 AM CDT Bayron Barclay DO LAB BLOOD ORDERABLES Final R esult Performing Organization Address City/State/[facility] Co de Phone Number SHARON [facility] Department [place] [address] * Comprehensive metabolic panel (04/22/2025 8:27 AM CDT) Sodium 143 135 - 145 mmol/L Comment:Testing performed by : [address] [address] Potassium, pl 4.2 3.3 - 4.9 mmol/L SHARON QUINN Comment:Testing performed by : [address] [address] Chloride 105 97 - 110 mmol/L SHARON Comment:Testing performed by : [address] [address] CO2 25 22 - 32 mmol/L SHARON QUINN Comment:Testing performed by : [address] [address] Anion gap 13 2 - 15 mmol/L SHARON QUINN Comment:Testing performed by : [address] [address] BUN 15 6 - 25 mg/dL SHARON QUINN Comment:Testing performed by : [address] [place] [address] Creatinine 1.04 0.60 - 1.10 mg/dL SHARON Comment:Testing performed by : [address] [address] Glucose 102 70 - 199 mg/dL SHARON [...] was last revised 2022. Testing performed by: [address] [address] Calcium 9.4 8.5 - 10.3 mg/dL SHARON Comment:Testing performed by : [address] [address] Bilirubin, total 0.6 0.1 - 1.2 mg/dL [facility] Comment:Testing performed by : [address] [address] Protein, pl 7.1 6.5 - 8.5 g/dL [facility] Comment:Testing performed by : [address] [address] Albumin 4.4 3.5 - 5.0 g/dL [facility] Comment:Testing performed by : [address] [address] Alk phos 92 40 - 130 Units/L SHARON Comment:Testing performed by : [address] [address] ALT 10 7 - 45 Units/L SHARON Comment:Testing performed by : [address] [address] AST 17 10 - 45 Units/L SHARON Comment:Testing performed by : [address] [address] Blood 04/22/2025 8:27 AM CDT 04/22/2025 8:33 AM CDT Bayron Barclay DO LAB BLOOD ORDERABLES Final R esult SHARON MH [address] [facility] Department [place] [address] * POCT urinalysis dipstick (04/20/2025 3:28 PM CDT) Color, Urine, POC Yellow Clarity, ur, POC Clear Clear Glucose, ur, POC Negative Negative Bilirubin, ur, POC Negative Negative Ketones, ur, POC Negative Negative Specific [place], POC 1.030 1.003 - 1.030 Blood, ur, POC Negative Negative pH, ur, POC 6.0 5.0 - 8.0 Protein, ur, POC Negative Negative Urobilinogen, urine, POC 0.2 0.2 - 1.0 mg/dL Nitrite, ur, POC Negative Negative Leukocytes, ur, POC Negative Negative Lot Number [id number] Urine 04/20/2025 3:28 PM CDT Carmelina Gonzalez [...] 05/06/2025 1:38 PM - Electronically signed by uSrjit Henderson M.D. T: Report ID: [id number] Reading Location: [place] [address] Procedure Note Surjit Henderson MD - 05/06/2025 [...] Surjit Henderson M.D. LB T: Report ID: [id number] Reading Location: [place] [address] Sylvester Blas MD IMG CT PROCEDURES Final Resul t * HM MAMMOGRAPHY (12/27/2024 1:02 PM CDT) [...] a test for HCV RNA (test code 59112) is suggested. For additional information please refer to http://education.MEMSIC/faq/YCJ73i5 (This link is being provided for informational/ educational purposes only.) Blood 06/04/2022 9:22 AM CDT 06/04/2022 9:25 AM CDT Narrative [facility] - 06/05/2022 10:11 AM CDT FASTING:YES FASTING: YES us Amarilis Mcfarlane MD LAB MICROBIOLOGY - GENERAL ORDERABLES Final Result [facility] [address] [address] [place] [address] * Dexa Axial Skeleton Bone Density 1 or 2 Site (01/31/2022 9:03 AM CDT) Anatomical Region Laterality Modality Body N/A Mammography 01/31/2022 3:21 PM CDT Narrative 01/31/2022 3:21 PM CDT EXAM DESCRIPTION: DEXA AXIAL SKELETON BONE DENSITY 1 OR MORE SITES REASON FOR STUDY: 66 y/o year old F with given history of screening. Regulatory Affairs Assistant/Model: [employer] A (S/N [id number]) CLINICAL INFORMATION: Current height: 65 inches Maximum [...] Amrita Dennison M.D. TB: TB Report ID: [id number] Reading Location: [facility] Procedure Note MiddletonAmrita MD - 01/31/2022 EXAM DESCRIPTION: DEXA AXIAL SKELETON BONE DENSITY 1 OR MORE SITES REASON FOR STUDY: 66 y/o year old F with given history ofscreening. Regulatory Affairs Assistant/Model: [employer] A (S/N [id number]) CLINICAL INFORMATION: Current height: 65 inches Maximum [...] Amrita Dennison M.D. TB: TB Report ID: [id number] [facility] Amarilis Mcfarlane MD IMG DXA PROCEDURES Final Result * Colonoscopy (06/27/2021) Anatomical Region Laterality Modality Other Historical Provider ENDOSCOPY PROCEDURES Milagros l Result from Last 3 Months or Most Recently Relevant to Health Maintenance Insurance MEDICARE [facility] MEDICARE [facility] MEDICARE [employer] [place] Care Teams Microbiology Lab Manager Relationship Specialty Start Date End Date Amarilis Mcfarlane MD [address] [place] [address] PCP - General Family Medicine 06/29/20 Bayron Barclay DO [address] [place] [address] MEDICAL ONCOLOGY, [facility] [address] [place] [address] Medical Oncologist/Banquet Line Cook Hematology and Oncology 04/28/23 Christine Roper PA [address] [place] [address] Physician Revolving Field Assembler Family Medicine 03/03/25
--- OUTSIDE RECORDS SUMMARY | 2025-07-08 15:54 | XMS_ITS | Encounter Summary ---
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 Gender Identity Female 06/06/2023 10:34 AM CDT Sexual Orientation Straight 06/06/2023 10 :34 AM CDT documented as of this encounter Plan of Treatment Not on file documented as of this encounter Visit Diagnoses Not on filedocumented in this encounter Care Teams Educational Fundraising Director Relationship Specialty Start Date End Date Amarilis Mcfarlane MD [address] [place] [address] PCP - General Family Medicine 06/29/20 Bayron Barclay DO [address] [place] [address] MEDICAL ONCOLOGY, [facility] [address] [place], [place] [address] Medical Oncologist/Automobile Club Membership Sales Agent Hematology and Oncology 04/28/23 Christine Roper PA [address] [place] [address] Physician Case Reviewer Family Medicine 03/03/25 documented as of this encounter
--- OUTSIDE RECORDS SUMMARY | 2025-07-08 15:54 | XMS_ITS | Encounter Summary ---
Author Organization [facility] Facility Care Team Providers Care Cnc Mill Set Up Operator Name Role Phone Brielle Mack MD Primary Care Provider Amarilis Mcfarlane MD Primary Care Provi julito Bayron Barclay DO Unavailable [phone] Christine Roper Unavailable [phone] Encounter Details Date Type Department Care Team (Latest Contact Info) Description 02/29/2016 Orders Only [facility] CLINCONV ProviderIvonne MD [address] [place] [address] Social History Tobacco Use Types Packs/Day Years Used Date Smoking Tobacco: Never Assessed Comments Unknown Sex and Gender Information Value Date Recorded Sex Assigned at Not on file Legal Sex Female 7:51 AM PHARMACEUTICAL OPERATOR Gender Identity Female 06/06/2023 10:34 AM [...] COVID: Suspected 09/13/2021 09/13/2021 09/14/2021 12:34 AM PHARMACEUTICAL OPERATOR COVID: Suspected 05/25/2024 05/25/2024 05/25/2024 9:56 AM CDT documented as of this encounter Care Teams Cnc Mill Set Up Operator Relationship Specialty Start Date End Date Brielle Mack MD PCP - General 10/23/17 06/28/20 Amarilis Mcfarlane MD [address] [place] [address] PCP - General Family Medicine 06/29/20 Bayron Barclay DO [address] [place] [address] MEDICAL ONCOLOGY, [facility] [address] [place] [address] Medical Oncologist/Software Deployment Engineer Hematology and Oncology 04/28/23 Christine Roper PA [address] [place] [address] Physician Char Dust Cleaner And Salvager Family Medicine 03/03/25 documented as of this encounter
--- OUTSIDE RECORDS SUMMARY | 2025-07-08 15:54 | XMS_ITS | Encounter Summary ---
Author Organization [facility] Healthcare Address [address] [place] [address] Care Team Providers Care Management Scientist Name Role Phone Amarilis Mcfarlane MD Primary Care Provi julito Bayron Barclay DO Unavailable [phone] Christine Roper Unavailable [phone] Encounter Details Date Type Department Care Team (Late st Contact Info) Description 05/10/2025 Results Follow-Up [facility] Medical Group Family Medicine [address] [address] Sylvester Blas MD [address] [place] [address] CT Chest WO Contrast Social [...] on file Legal Sex Female 7:51 AM TESTING LEAD Gender Identity Female 06/06/2023 10:34 AM [...] on filedocumented in this encounter Care Teams Management Scientist Relationship Specialty Start Date End Date Amarilis Mcfarlane MD [address] [place] [address] PCP - General Family Medicine 06/29/20 Bayron Barclay DO [address] [place] [address] MEDICAL ONCOLOGY, [facility] [address] [place] [address] Medical Oncologist/Coat Ironer Hand Hematology and Oncology 04/28/23 Christine Roper PA [address] [place] [address] Physician Research Aide Family Medicine 03/03/25 documented as of this encounter
--- OUTSIDE RECORDS SUMMARY | 2025-07-08 15:54 | XMS_ITS | Clinical Summary ---
Author Organization [facility] Address [address] [place] [address] Care Team Providers Care Scientific Informatics Project Leader Name Role Phone Brielle Mack MD Primary Care Provider [phone] Source Comments [facility],non-owned Affiliates and Associated Physician Practices is amultiple site organization consisting of ambulatory clinics and hospital sitesin [place], [place], [place] and [place]. This disclosure is being madepursuant to the Care Everywhere program and may not contain all information available regarding this patient. Last updated 18.[facility] Allergies Active Allergy Reactions Criticality Noted Date [...] topic Insurance [employer] HE[employer] MEDICARE Care Teams Scientific Informatics Project Leader Relationship Specialty Start Date End Date Brielle Mack MD PCP - General Family Medicine 01/08/19
--- OUTSIDE RECORDS SUMMARY | 2025-07-08 15:54 | XMS_ITS | Encounter Summary ---
Author Organization [facility] Facility Care Team Providers Care Labor Crew Supervisor Name Role Phone Brielle Mack MD Primary Care Provider Amarilis Mcfarlane MD Primary Care Provi julito Bayron Barclay DO Unavailable [phone] Christine Roper Unavailable [phone] Encounter Details Date Type Department Care Team (Latest Contact Info) Description 11/11/2016 Orders Only [facility] CLINCONV ProviderIvonne MD [address] [place] [address] Social History Tobacco Use Types Packs/Day Years Used Date Smoking Tobacco: Never Assessed Comments Unknown Sex and Gender Information Value Date Recorded Sex Assigned at Not on file Legal Sex Female 7:51 AM DIRECTOR FOOD AND BEVERAGE Gender Identity Female 06/06/2023 10:34 AM CDT Sexual Orientation Straight 06/06/2023 10 :34 AM CDT documented as of this encounter Plan of Treatment Not on file documented as of this encounter Procedures Procedure Name Priority Date/Time Associated Diagnosis Comments CARDIOLOGY REPORT 11/13/2016 12: 00 AM DIRECTOR FOOD AND BEVERAGE documented in this encounter Results * CARDIOLOGY REPORT (11/13/2016 12:00 AM DIRECTOR FOOD AND BEVERAGE) Anatomical Region Laterality Modality Other Narrative 11/13/2016 12:00 AM DIRECTOR FOOD AND BEVERAGE Ordered by an unspecified provider. Historical Provider [facility] YAMILET ZHANG Final Result documented in this encounter Visit Diagnoses Not on filedocumented in this encounter Additional Health Concerns Infection Onset Date Last Indicated Resolved Time COVID: Suspected 09/13/2021 09/13/2021 09/14/2021 12:34 AM DIRECTOR FOOD AND BEVERAGE COVID: Suspected 05/25/2024 05/25/2024 05/25/2024 9:56 AM CDT documented as of this encounter Care Teams Labor Crew Supervisor Relationship Specialty Start Date End Date Brielle Mack MD PCP - General 10/23/17 06/28/20 Amarilis Mcfarlane MD [address] [place], [place] [id number] PCP - General Family Medicine 06/29/20 Bayron Barclay DO [address] [place] [address] MEDICAL ONCOLOGY, [facility] [address] [place], [place] [id number] Medical Oncologist/Manganese Heater Hematology and Oncology 04/28/23 Christine Roper PA [address] [place], [place] [id number] Physician Microfilming Document Preparer Family Medicine 03/03/25 documented as of this encounter
--- OUTSIDE RECORDS SUMMARY | 2025-07-08 15:54 | XMS_ITS | Encounter Summary ---
Author Organization [facility] Healthcare Address [address] [place] [address] Care Team Providers Care Director Building Name Role Phone Amarilis Mcfarlane MD Primary Care Provi julito Bayron Barclay DO Unavailable [phone] Christine Roper Unavailable [phone] Encounter Details Date Type Department Care Team (Late st Contact Info) Description 05/25/2025 Results Follow-Up [facility] Medical Group Family Medicine [address] [address] Amarilis Mcfarlane MD [address] [address] TSH W/REFL FT4 Social History Tobacco Use Types Packs/Day Years [...] on file Legal Sex Female 7:51 AM EQUIP TECH Gender Identity Female 06/06/2023 10:34 AM CDT Sexual Orientation Straight 06/06/2023 10 :34 AM CDT documented as of this encounter Plan of Treatment Not on file documented as of this encounter Visit Diagnoses Not on filedocumented in this encounter Care Teams Director Building Relationship Specialty Start Date End Date Amarilis Mcfarlane MD [address] [place] [address] PCP - General Family Medicine 06/29/20 Bayron Barclay DO [address] [place] [address] MEDICAL ONCOLOGY, [facility] [address] [place] [address] Medical Oncologist/Inspector Precision Assembly Hematology and Oncology 04/28/23 Christine Roper PA [address] [place] [address] Physician Security Orderly Family Medicine 03/03/25 documented as of this encounter
--- OUTSIDE RECORDS SUMMARY | 2025-07-08 15:54 | XMS_ITS | Clinical Summary ---
Author Organization [facility] Care Team Providers Care Insole Department Worker Name Role Phone Unavailable Primary Care Provider Unavailabl e Social History Tobacco Use Types Packs/Day Years Used Date Smoking Tobacco: Never Assessed Comments Unknown Sex and Gender Information Value Date Recorded Sex Assigned at Not on file Legal Sex Female 8:12 AM SHELL MACHINE OPERATOR Gender Identity Not on file Sexual Orientation Not on file Plan of Treatment Health Maintenance Due Date Last Done Comments Hepatitis C Virus (HCV) Screening 1955 TdaP Immunization 1955 Cologuard 2001 Colonoscopy 2001 Colorectal Cancer Screening 2001 Immunochemical Fecal Occult Blood 2001 Pneumococcal Immunization (5 0+ years) (1 of 1 - PCV) 2006 Zoster Immunization (1 of 2) 2006 Influenza Immunization (#1) 05/09/202506/08, 06/29/2020 SARS-COV-2 Immunization (3 - season) 2025 11/13/2020, 10/21/2020 Respiratory Syncytial Virus (RSV) Immunization [...]
--- OUTSIDE RECORDS SUMMARY | 2025-07-08 15:54 | XMS_ITS | Encounter Summary ---
Author Organization [facility] Facility Care Team Providers Care Manager Primary Name Role Phone Brielle Mack MD Primary Care Provider [phone] Amarilis Mcfarlane MD Primary Care Provi julito Bayron Barclay DO Unavailable [phone] Christine Roper Unavailable [phone] Encounter Details Date Type Department Care Team (Latest Contact Info) Description 07/02/2017 Orders Only [facility] CLINCONV Provider, MD Ivonne [address] [place] [address] Social History Tobacco Use Types Packs/Day Years Used Date Smoking Tobacco: Never Assessed Comments Unknown Sex and Gender Information Value Date Recorded Sex Assigned at Not on file Legal Sex Female 7:51 AM CONVEYOR FEEDER OFFBEARER Gender Identity Female 06/06/2023 10:34 AM CDT [...] COVID: Suspected 09/13/2021 09/13/2021 09/14/2021 12:34 AM CONVEYOR FEEDER OFFBEARER COVID: Suspected 05/25/2024 05/25/2024 05/25/2024 9:56 AM CDT documented as of this encounter Care Teams Manager Primary Relationship Specialty Start Date End Date Brielle Mack MD PCP - General 10/23/17 06/28/20 Amarilis Mcfarlane MD [address] [place], [place] [phone] PCP - General Family Medicine 06/29/20 Bayron Barclay DO [address] [place] [address] MEDICAL [facility]COL[facility]Y, [facility] [address] [place], [place] [id number] Medical Oncologist/Incendiaries Supervisor Hematology and Oncology 04/28/23 Christine Roper PA [address] [place], [place] [phone] Physician Therapeutic Recreation Leader Family Medicine 03/03/25 documented as of this encounter
--- OUTSIDE RECORDS SUMMARY | 2025-07-08 15:54 | XMS_ITS | Encounter Summary ---
Author Organization [facility] Healthcare Address [address] [place] [address] Care Team Providers Care Automotive Manager Name Role Phone Amarilis Mcfarlane MD Primary Care Provi julito Bayron Barclay DO Unavailable [phone] Christine Roper Unavailable [phone] Encounter Details Date Type Department Care Team (Late st Contact Info) Description 07/08/[address] [facility] Medical Group Family Medicine [address] [address] Amarilis Mcfarlane MD [address] [address] Social History Tobacco Use Types [...] on file Legal Sex Female 7:51 AM SHEET SEWER Gender Identity Female 06/06/2023 10:34 AM CDT Sexual Orientation Straight 06/06/2023 10 :34 AM CDT documented as of this encounter Miscellaneous Notes * Telephone Encounter - Shari Paredes MA - 07/08/2025 3:22 PM CDT Patient calling and states she has a cough, losing since yesterday. Patient states that she did covid and flu test at home and was negative after 10 minutes. She left and came after 2 hours and it was positive. Patient retested and results came in while on the phone she said that there was a dark red line on the C and a faint line on FLU A. Patient states she is going to go to [facility] and take the test with her to see about getting tamiflu if needed. Denies body aches, chills, sweats documented in this encounter Plan of Treatment Not on file documented as of this encounter Visit Diagnoses Not on filedocumented in this encounter Care Teams Automotive Manager Relationship Specialty Start Date End Date Amarilis Mcfarlane MD [address] [place], [place] [phone] PCP - General Family Medicine 06/29/20 Bayron Barclay DO [address] [place] [address] MEDICAL ONCOLOGY, [address] [address] Medical Oncologist/Accounts Manager Hematology and Oncology 04/28/23 Christine Roper PA [address] [place] [address] Physician Railroad Car Loader Family Medicine 03/03/25 documented as of this encounter
--- OUTSIDE RECORDS SUMMARY | 2025-07-08 15:54 | XMS_ITS | Encounter Summary ---
Author Organization [facility] Address [address] [place] [address] Phone Care Team Providers Care Lead Programmer Analyst Name Role Phone Amarilis Mcfarlane MD Primary Care Provi julito Bayron Barclay DO Unavailable [phone] Christine Roper Unavailable [phone] Encounter Details Date Type Department Care Team (Late st Contact Info) Description 05/11/2025 Results Follow-Up [facility] Medicine Physicians [facility] Oncology [address] [facility] [address] [facility] [address] [place] [phone] Nadira Beck RN Thyroid Social History [...] on file Legal Sex Female 7:51 AM 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 Gender Identity Female 06/06/2023 10:34 AM CDT Sexual Orientation Straight 06/06/2023 10 :34 AM CDT documented as of this encounter Plan of Treatment Not on file documented as of this encounter Visit Diagnoses Not on filedocumented in this encounter Care Teams Lead Programmer Analyst Relationship Specialty Start Date End Date Amarilis Mcfarlane MD [address] [place] [address] PCP - General Family Medicine 06/29/20 Bayron Barclay DO [address] [place] [address] MEDICAL ONCOLOGY, [facility] [address] [place] [address] Medical Oncologist/Manager Retail Hematology and Oncology 04/28/23 Christine Roper PA [address] [place] [address] Physician Seo Professional Family Medicine 03/03/25 documented as of this encounter
[2025-07-08 16:04] VITALS: BP 122/67; PULSE 93; RESP 18; TEMP 36.9; O2SAT 99
[2025-07-08 16:14] LABS: EDCOVIDSCREEN Negative (Negative)
[2025-07-08 16:15] LABS: EDINFLUASCREEN Positive (Negative); EDINFLUBSCREEN Negative (Negative)
--- NOTE | 2025-07-08 16:30 | ED.URI ---
HPI - URI/Sore Throat General Chief Complaint: Upper Respiratory Infection Stated Complaint: Flu A Time Seen by Provider: 07/08/25 16:15 Source: patient and RN notes reviewed Mode of arrival: ambulatory Limitations: no limitations History of Present Illness HPI Narrative: 70-year-old female presents to the [facility] complaining of upper respiratory symptoms that started yesterday. Patient said she tested positive twice at home for flu A. Patient is unsure if her test was accurate. Patient had her flu shot back in May. Patient reports cough, sore throat, congestion. Patient denies any body aches, chills, fevers, nausea, vomiting, diarrhea, chest pain or shortness of breath. Patient denies any other symptoms. Patient has not take any [id number] help with symptoms. Related Data Home Medications ?Medication ?Instructions ?Recorded ?Confirmed ?Last Taken ?Type clonidine HCl 0.1 mg tablet 0.1 mg PO .prn 08/26/24 04/18/25 Unknown History dicyclomine 10 mg capsule 10 mg PO .prn abdominal discomfort 08/26/24 04/18/25 Unknown History meclizine 25 mg tablet 25 mg PO .prn Nausea 08/26/24 04/18/25 Unknown History levothyroxine 88 mcg tablet mcg 03/25/25 04/18/25 Unknown History (Synthroid) famotidine 10 mg tablet 10 mg PO DAILY 04/18/25 04/18/25 Unknown History losartan 100 mg tablet 100 mg PO DAILY 04/18/25 04/18/25 Unknown History potassium chloride 10 mEq 10 meq PO DAILY 04/18/25 04/18/25 Unknown History capsule,extended release Allergies Allergy/AdvReac Type Severity Reaction Status Date / Time diphenhydramine (From AdvReac Severe Palpitation Verified 07/08/25 15:53 Benadryl) s erythromycin base AdvReac Severe Palpitation Verified 07/08/25 15:53 s anything prolongs QT AdvReac Unknown Uncoded 04/18/25 12:56 Review of Systems Review of Systems: CONSTITUTIONAL: Denies fever, body aches, chills, or sweats. EYES: Denies visual changes, redness, or discharge. ENT: Denies rhinorrhea, or otalgia. Positive for congestion and sore throat. CARDIOVASCULAR: Denies chest pain, palpitations, or edema. RESPIRATORY: Positive for cough. Negative for wheezing or dyspnea. GASTROINTESTINAL: Denies abdominal pain, nausea, vomiting, or diarrhea. GENITOURINARY: Denies dysuria or hematuria. SKIN: Denies rash or itching. MUSCULOSKELETAL: Denies back pain, joint pain, or myalgia. NEUROLOGIC: Denies headache, numbness, or weakness. PSYCHIATRIC: Denies anxiety or depression. All other systems reviewed are negative, except as documented in HPI. [facility] Past Medical History Medical History Elevated fecal calprotectin Mucus in stool Diarrhea Calculus of cystic duct without obstruction Rectal bleeding Abdominal pain Abnormal CT of the abdomen Neck pain Gastroesophageal reflux disease QT prolongation ICD (implantable cardioverter-defibrillator) battery depletion Torsades de pointes TMJ (dislocation of temporomandibular joint) GERD (gastroesophageal reflux disease) Thyroid cancer Surgical History Surgical History History of sphincterotomy of sphincter of Oddi Hx of cholecystectomy History of appendectomy Social History Social History Smoking status: Never smoker Alcohol intake: never Substance use: never Living arrangements: with family Gender identity (if verbalized by the patient): Female Spiritual care concerns: No Comments At the time of my signature, I reviewed and agree with the nursing past medical, surgical, social, and family history. There is no relevant family history pertinent to the patient complaint. Exam Narrative: GENERAL: This is a well-nourished, well-developed adult, in no apparent distress. They are non ill-appearing, nontoxic appearing. HEAD: normocephalic, atraumatic. EYES: Sclera clear/white. Conjunctiva normal. Vision is grossly intact. Extraocular movements intact EARS: External ears normal, auditory canals clear and without drainage, TMs normal without perforation. Hearing grossly intact. NOSE: External nose normal with no obvious nasal discharge, nasal turbinates erythematous, no rhinorrhea. THROAT: Mucous membranes moist, posterior pharynx erythema without swelling. Uvula midline. Postnasal drip present. NECK: Neck supple, non-tender without lymphadenopathy, masses or thyromegaly. CARDIOVASCULAR: Regular rate and rhythm without murmurs, gallops, or rubs. RESPIRATORY: Clear to auscultation. Breath sounds equal bilaterally. No wheezes, rales, or rhonchi. SKIN: warm, Dry, intact with no suspicious lesions or rash, good texture and turgor. NEURO: awake, alert, and oriented to person, place and time. There were no obvious focal neurologic abnormalities. EXTREMITIES: No joint tenderness, effusion, or edema noted. BACK: Nontender without deformity. No CVA tenderness. Course Course Emergency Course: Portions of this record may have been created with voice recognition software Level of Care: Express Care Visit Vital Signs Vital signs: Vital Signs Temperature 98.5 F 07/08/25 16:04 Pulse Rate 93 07/08/25 16:04 Respiratory Rate 18 07/08/25 16:04 Blood Pressure 122/67 07/08/25 16:04 Pulse Oximetry 99 07/08/25 16:04 Oxygen Delivery Room Air 07/08/25 16:04 Temperature 98.5 F 07/08/25 16:04 Pulse Rate 93 07/08/25 16:04 Respiratory Rate 18 07/08/25 16:04 Blood Pressure 122/67 07/08/25 16:04 Pulse Oximetry 99 07/08/25 16:04 Oxygen Delivery Room Air 07/08/25 16:04 Reviewed MDM - URI/Sore Throat MDM Narrative Medical decision making narrative: Rapid flu a is positive. Negative flu B and COVID. Patient likely has influenza A. Patient is vaccinated, she is in the window for Tamiflu. Prescription obtain full sent to pharmacy. Discussed supportive care. Discussed physical exam findings. Advised supportive measures and signs/symptoms to go to the ER. Pt is appropriate for outpt treatment and f/u. Differential Diagnosis Differential diagnosis: Likely upper respiratory infection, sinusitis, viral infection, influenza and pharyngitis Lab Data Attestation: I reviewed the patient's lab results. Labs: Lab Results 07/08/25 Range/Units 16:11 POC Influenza A Ag Positive (Negative) POC Influenza B Ag Negative (Negative) POC SARS CoV-2 Ag Negative (Negative) Critical Care Time Critical Care Time Critical Care Time: No Discharge Plan Discharge Clinical Impression: Influenza A Patient Disposition: Home Condition: Stable Instructions: Antibiotic Form, Influenza (ED) Additional Instructions: You should avoid crowds until you are fever free for 24 hours without the use of fever reducing medications, or the symptoms are improved The flu usually last 5-7 days without complications. Tylenol or ibuprofen as needed for pain or fevers. Follow instructions on the bottle. Recommend Zyrtec (or Claritin/Bernice) for congestion. Follow instructions on the bottle. Rest and drink plenty of fluids Take Tamiflu as directed. Follow up with your primary care provider 5-7 days. Go to the ER he developed breathing problems, chest pain, nausea, vomiting, worsening symptoms, worsening fevers, weakness, confusion, or any serious concerns. Patient Language: Romansh Prescriptions: New oseltamivir [Tamiflu] 75 mg capsule 75 mg PO Q12H 5 Days Qty: 10 0RF No Action potassium chloride 10 mEq capsule, extended release 10 meq PO DAILY levothyroxine [Synthroid] 88 mcg tablet meclizine 25 mg tablet 25 mg PO .prn losartan 100 mg tablet 100 mg PO DAILY dicyclomine 10 mg capsule 10 mg PO .prn clonidine HCl 0.1 mg tablet 0.1 mg PO .prn famotidine 10 mg tablet 10 mg PO DAILY Follow-up/Referrals: Maeve,MD Amarilis [Primary Care Provider, Unknown] Time of Disposition: 16:24
== END 2025-07-08 16:28 | disposition home or self-care (01) ==
PROVIDERS: PCP Family Medicine
DX: J10.1 Influenza due to other identified influenza virus with other respiratory manifestations (principal); Z20.822 Contact with and (suspected) exposure to COVID-19; Z95.810 Presence of automatic (implantable) cardiac defibrillator; K21.9 Gastro-esophageal reflux disease without esophagitis; Z85.850 Personal history of malignant neoplasm of thyroid
CPT/HCPCS: 87426; 87804; 99213; G0463

== ENCOUNTER 2025-07-26 08:04 | Emergency (ER) | payer MEDICARE, OTHER, SELFPAY ==
--- NOTE | 2025-07-26 08:09 | ED.FEMALEGU ---
HPI - Female Genitourinary General Chief complaint: Urogenital-Female Stated complaint: UTI Time Seen by Provider: 07/26/25 08:05 Source: patient Mode of arrival: ambulatory Limitations: no limitations History of Present Illness HPI Narrative: patient is a 70-year-old female presenting for Urinary frequency and urgency since last night. Patient also has had low back pain. Denies any fever, chills, nausea, vomiting, diarrhea, blood in urine or concern for STI. Patient has frequent UTIs and has urology appointment in October. Patient was treated for UTI 07/02 with [facility]. elicited complaint: dysuria Related Data Home Medications ?Medication ?Instructions ?Recorded ?Confirmed ?Last Taken ?Type clonidine HCl 0.1 mg tablet 0.1 mg PO .prn 08/26/24 04/18/25 Unknown History meclizine 25 mg tablet 25 mg PO .prn Nausea 08/26/24 04/18/25 Unknown History levothyroxine 88 mcg tablet mcg 03/25/25 04/18/25 Unknown History (Synthroid) famotidine 10 mg tablet 10 mg PO DAILY 04/18/25 04/18/25 Unknown History losartan 100 mg tablet 100 mg PO DAILY 04/18/25 04/18/25 Unknown History potassium chloride 10 mEq 10 meq PO DAILY 04/18/25 04/18/25 Unknown History capsule,extended release Allergies Allergy/AdvReac Type Severity Reaction Status Date / Time diphenhydramine (From AdvReac Severe Palpitation Verified 07/26/25 08:06 Benadryl) s erythromycin base AdvReac Severe Palpitation Verified 07/26/25 08:06 s anything prolongs QT AdvReac Unknown Uncoded 04/18/25 12:56 Review of Systems Review of Systems: All systems reviewed & are unremarkable except as noted in HPI and below Constitutional: Constitutional: Denies chills, Denies fever(s), Denies headache(s), Denies malaise and Denies weakness Eyes: Eyes: Denies change in vision, Denies eye discharge and Denies irritation ENT: Denies otalgia, Denies headache(s), Denies nasal congestion, Denies nasal discharge, Denies sinus pain and Denies sore throat Cardiovascular: Cardiovascular: Denies chest pain, Denies edema, Denies palpitations and Denies dyspnea Respiratory: Respiratory: Denies cough and Denies dyspnea Gastrointestinal: Gastrointestinal: Denies abdominal pain, Denies diarrhea, Denies nausea and Denies vomiting Genitourinary: Genitourinary: Denies hematuria, Reports nocturia, Denies dysuria, Denies flank pain and Reports urinary urgency Musculoskeletal: Musculoskeletal: Denies back pain and Denies numbness Integumentary/Breasts: Skin/Breast: Denies pruritus and Denies rash Neurologic: Denies headache(s), Denies numbness and Denies weakness Psychiatric: Psychiatric: Reports no additional psychiatric complaints Endocrine: Endocrine: Denies palpitations PMF Past Medical History Medical History Elevated fecal calprotectin Mucus in stool Diarrhea Calculus of cystic duct without obstruction Rectal bleeding Abdominal pain Abnormal CT of the abdomen Neck pain Gastroesophageal reflux disease QT prolongation ICD (implantable cardioverter-defibrillator) battery depletion Torsades de pointes TMJ (dislocation of temporomandibular joint) GERD (gastroesophageal reflux disease) Thyroid cancer Surgical History Surgical History History of sphincterotomy of sphincter of Oddi Hx of cholecystectomy History of appendectomy Social History Social History Smoking status: Never smoker Alcohol intake: never Substance use: never Living arrangements: with family Gender identity (if verbalized by the patient): Female Spiritual care concerns: No Comments At time of signature, agree with nursing past medical, surgical, social and family history. There is no relevant family history pertinent to the presenting complaint. Exam Const: General: cooperative, healthy appearing, comfortable, no acute distress and well nourished Nutritional Appearance: well nourished Orientation/consciousness: patient oriented x3 HENMT: Head: normocephalic and atraumatic Ears: external ears normal Face/Nose/Sinus: Normal external nose present, Normal nares present and normal facial exam Face and sinus: normal facial exam Eyes: General: appearance normal, both eyes and all related structures Pupils: Equal, round and reactive pupils present EOM: EOMs intact bilaterally Neck: Neck: normal visual inspection, full ROM and supple Chest: Chest palpation & inspection: normal inspection of the chest Resp: Effort & Inspection: normal respiratory effort and able to speak in complete sentences Cardio: Rate: regular rate Rhythm: regular rhythm GI: Inspection: normal to inspection GI Palp: No abdominal tenderness and Yes Soft to palpation : General: Yes no CVA tenderness Back/Spine/Pelvis: Back: no CVA tenderness Skin: General skin exam: normal color and no rashes or lesions noted Neuro: General: patient oriented x3 and moves all extremities Cranial nerves: Yes Equal, round and reactive pupils present Extrem: General: normal to inspection and full ROM Psych: Appearance: grossly normal and well kempt Course Course Emergency Course: Patient is aware of diagnosis, understands and agrees to treatment plan. Anticipatory guidance given. Patient agrees to follow-up as directed and is aware of reasons to seek care at the emergency department. Portions of this record may have been created with voice recognition software Level of Care: Express Care Visit Vital Signs Vital signs: Vital Signs Temperature 36.5 C 07/26/25 08:10 Pulse Rate 70 07/26/25 08:10 Respiratory Rate 18 07/26/25 08:10 Blood Pressure 138/77 07/26/25 08:10 Pulse Oximetry 99 07/26/25 08:10 Oxygen Delivery Room Air 07/26/25 08:10 Temperature 36.5 C 07/26/25 08:10 Pulse Rate 70 07/26/25 08:10 Respiratory Rate 18 07/26/25 08:10 Blood Pressure 138/77 07/26/25 08:10 Pulse Oximetry 99 07/26/25 08:10 Oxygen Delivery Room Air 07/26/25 08:10 Reviewed MDM - Female Genitourinary MDM Narrative Medical decision making narrative: POC UA shows no signs of UTI and will wait for culture to give antibiotics. Patient has been drinking more tea than normal and has been packing to move for several days which may be the cause of symptoms. Encouraged patient to increase fluids and take ibuprofen. Pt well hydrated appearing, in no respiratory distress, hemodynamically stable. The patient is stable at time of discharge the clinical impression was discussed and the patient was given the opportunity to ask questions, which were addressed as completely as possible given the information available at present. Anticipatory guidance and return to care precautions were discussed and the importance of primary care follow-up was stressed and encouraged. The patient voiced understanding of the plan, indications to return, and the need for follow-up. Exam findings show no acute concerns or changes Patient is appropriate for outpatient treatment and follow-up Differential Diagnosis Differential diagnosis: Likely urinary tract infection, bacterial vaginosis, trichomoniasis, cervicitis, vaginitis and cystitis Medical Records Attestation: I reviewed the patient's medical records. Lab Data Attestation: I reviewed the patient's lab results. Labs: Lab Results 07/26/25 Range/Units 08:23 POC Urine Color Yellow POC Urine Clarity Clear POC Urine pH 7.0 POC Ur Specif [place] 1.015 POC Urine Protein Negative (Negative) POC Ur Glucose (UA) Negative (Negative) POC Urine Ketones Negative (Negative) POC Urine Blood Negative (Negative) POC Urine Nitrite Negative (Negative) POC Urine Bilirubin Negative (Negative) POC Urine Urobilinogen 0.2 POC U Leukocyte Esteras Negative (Negative) Discharge Plan Discharge Clinical Impression: Urinary urgency Patient Disposition: Home Condition: Stable Instructions: Urinary Urgency and Frequency (DC) Additional Instructions: If culture comes back with growth we will call you and start you on antibiotics. Continue with increased water intake. Take Tylenol or ibuprofen as needed for pain or fever. Follow-up with primary care provider for urine recheck or see ER visit if condition worsens with high fever, nausea, vomiting, severe back pain Patient Language: Kinyarwanda Prescriptions: No Action potassium chloride 10 mEq capsule, extended release 10 meq PO DAILY levothyroxine [Synthroid] 88 mcg tablet oseltamivir [Tamiflu] 75 mg capsule 75 mg PO Q12H 5 Days Qty: 10 0RF meclizine 25 mg tablet 25 mg PO .prn losartan 100 mg tablet 100 mg PO DAILY clonidine HCl 0.1 mg tablet 0.1 mg PO .prn famotidine 10 mg tablet 10 mg PO DAILY dicyclomine 10 mg capsule See Rx Instructions .ROUTE .COMPLEX Qty: 90 0RF Dose Instruction: TAKE 1 CAPSULE BY MOUTH THREE TIMES DAILY FOR ABDOMINAL DISCOMFORT Rx Instructions: TAKE 1 CAPSULE BY MOUTH THREE TIMES DAILY FOR ABDOMINAL DISCOMFORT Follow-up/Referrals: Maeve,MD Amarilis [Primary Care Provider, Unknown] - 3 Days Time of Disposition: 08:41
[2025-07-26 08:10] VITALS: BP 138/77; PULSE 70; RESP 18; TEMP 36.5; O2SAT 99
[2025-07-26 08:27] LABS: EDUAAPPEAR Clear; EDUABILI Negative (Negative); EDUABLOOD Negative (Negative); EDUACOLOR1 Yellow; EDUAGLUCOSE Negative (Negative); EDUAKETONE Negative (Negative); EDUALEUKO Negative (Negative); EDUANITRATE Negative (Negative); EDUAPH 7.0; EDUAPROTEIN Negative (Negative); EDUASPGRAVITY 1.015; EDUAUROBILI 0.2
== END 2025-07-26 08:45 | disposition home or self-care (01) ==
PROVIDERS: Emergency Provider Nurse Practitioner Family; PCP Family Medicine
DX: R39.15 Urgency of urination (principal); K21.9 Gastro-esophageal reflux disease without esophagitis; Z95.810 Presence of automatic (implantable) cardiac defibrillator; Z85.850 Personal history of malignant neoplasm of thyroid
CPT/HCPCS: 81003; 87086; 99213; G0463

== ENCOUNTER 2025-08-07 09:43 | Emergency (ER) | payer MEDICARE, OTHER, SELFPAY ==
--- NOTE | ~2025-08-07 | XR_ITS ---
Examination: XR toe 3rd RT min 2V Clinical History: pain with trauma Comparison: None Technique: 4 views right third toe Findings/impression: 1. No fracture or dislocation identified right third toe. Reviewed, dictated and finalized at location R. OR EDUCATION SPECIALIST
--- OUTSIDE RECORDS SUMMARY | 2025-08-07 09:45 | XMS_ITS | Clinical Summary ---
Author Organization [facility] Address [address] [place] [address] Care Team Providers Care Director [facility] Name Role Phone Amarilis Mcfarlane MD Primary Care Provi julito Bayron Barclay DO Unavailable [phone] Christine Roper PA Unavailable [phone] Allergies Active Allergy Reactions Criticality Noted [...] (10 mg total) by mouth 3 Active cloNIDine (CATAPRES) 0.1 mg tabletIndications :Elevated blood pressure reading TAKE 1 TABLET(0.1 MG) BY MOUTH DAILY NEEDED FOR HIGH BLOOD PRESSURE 15 tablet 5 Active famotidine (PEPCID) 20 mg tablet Take 1 tablet (20 mg total) by mouth 2 (two) times a day as needed for heartburn Active losartan (COZAAR) 100 mg tabletIndications :Primary hypertension Take 1 tablet (100 mg total) by mouth daily 90 tablet 2 5 Active potassium chloride ER 10 mEq CR tabletIndications :ICD (implantable cardioverter-defi brillator) in place TAKE 1 CAPSULE(10 MEQ) BY MOUTH TWICE DAILY 200 tablet/capsu le 1 5 Active meclizine (ANTIVERT) 25 mg tablet TAKE 1 TABLET(25 MG) BY MOUTH THREE TIMES DAILY NEEDED FOR DIZZINESS 30 tablet 5 Active Synthroid 88 mcg tablet Take one tab daily and half on Friday 90 tablet 11 5 Active Active Problems Problem Noted Date Diagnosed Date Renal cyst, right 08/02/2025 Statin intolerance 11/25/2024 Assessment & Plan (12/21/2024 12:26 PM CDT): Myalgias are improving Assessment & Plan (11/25/2024 11:51 AM CDT): Orders: CT Coronary Calcium Scoring; Future Myalgia 11/25/2024 Assessment & Plan (12/08/2024 3:09 PM CDT): Assessment & Plan (11/25/2024 11:51 AM CDT): Orders: CT Coronary Calcium Scoring; Future Synthroid 125 mcg tablet; Take 1 tablet (125 mcg total) by mouth dairy manufacturing technologist before breakfast Thyroid Function [place]; Future Erythrocyte sedimentation rate; Future Comprehensive metabolic panel; Future BMI 28.0-28.9,adult 10/04/2024 Assessment & Plan (10/04/2024 2:48 PM MARRIAGE PERFORMER): BMI Follow-up includes: education provided. Pericardial effusion [...] (05/18/2025 9:10 AM CDT): Orders: Thyroid Function [place]; Future Assessment & Plan (03/25/2025 2:22 PM [...] (12/08/2024 3:09 PM CDT): Orders: Thyroid Function [place]; Future Assessment & Plan (11/25/2024 11:51 AM CDT): Orders: Synthroid 125 mcg tablet; Take 1 tablet (125 mcg total) by mouth dairy manufacturing technologist before breakfast Thyroid Function [place]; Future Erythrocyte sedimentation rate; Future Comprehensive metabolic panel; Future Assessment & Plan (10/04/2024 2:50 PM MARRIAGE PERFORMER): Chronic. Elevated mildly at last 2 lab [...] CDT): Assessment & Plan (10/04/2024 2:52 PM MARRIAGE PERFORMER): Chronic. Mostly controlled. Patient's average readings from [...] week. Assessment & Plan (07/22/2023 3:39 PM MARRIAGE PERFORMER): Chronic, stabe Continue current regimen Assessment & Plan (06/10/2023 11:28 AM CDT): Chronic, improved Continue losartan Continue clonidine only if needed Continue to follow with Cardiology Update me with any changes Call for questions Low bone mass 05/30/2022 Assessment & Plan (10/04/2024 2:49 PM MARRIAGE PERFORMER): Chronic. Discussed recommendation for 500 mg of calcium daily or 3 servings of calcium in diet daily. Discussed recommendation for vitamin-D 3467-9183 international units daily. She may try to get this all from a multivitamin. Assessment & Plan (07/22/2023 3:39 PM MARRIAGE PERFORMER): Chronic, stable Continue vitamin d Follow up testing ordered Assessment & Plan (05/30/2022 10:13 AM CDT): Continue vitamin d, calcium Strength training, walking H/O cardiac arrest 11/13/2021 Assessment & Plan (07/22/2023 3:37 PM MARRIAGE PERFORMER): Chronic, stable Managed by cardiology Update me with any changes or concerns Assessment & Plan (05/30/2022 10:11 AM CDT): Following with cardiology Other headache syndrome 10/31/2021 Assessment & Plan (07/22/2023 3:39 PM MARRIAGE PERFORMER): Acute, resolved Continue to monitor Update me if anything changes or worsens Assessment & Plan (05/30/2022 10:14 AM CDT): Occasional headaches Keep track of headaches Avoid triggers Update me if her symptoms change or worsen Assessment & Plan (10/31/2021 1:02 PM MARRIAGE PERFORMER): Differential migraine versus cluster versus other With [...] 05/11/2021 Assessment & Plan (07/22/2023 3:40 PM MARRIAGE PERFORMER): Chronic, stable Managed by cardiology S/p ICD placement Assessment & Plan (05/30/2022 10:13 AM CDT): S/p pacemaker Continue to follow with cardiology PVC's (premature ventricular contractions) 05/11 Assessment & Plan (07/22/2023 3:40 PM MARRIAGE PERFORMER): Chronic, stable Managed by cardiology Update me with any changes or concerns Assessment & Plan (05/30/2022 10:13 AM CDT): S/p pacemaker Continue to follow with cardiology Nonsustained ventricular tachycardia 05/11/2021 Assessment & Plan (07/22/2023 3:39 PM MARRIAGE PERFORMER): Chronic, stable Managed by cardiology S/p ICD placement Assessment & Plan (05/30/2022 10:13 AM CDT): S/p pacemaker Continue to follow with cardiology Family history of heart disease 05/11/2021 Assessment & Plan (07/22/2023 3:29 PM MARRIAGE PERFORMER): Chronic, stable Managed by cardiology Continue current regimen Assessment & Plan (05/30/2022 10:10 AM CDT): Chronic, stable Continue to follow with cardiology Encounter for Medicare annual wellness exam 04/08 Overview (08/02/2025): Encouraged healthy diet and activity Please look into a power of tax attorney or living will Health Maintenance: Last Pap 04/28- NILM, Neg HPV Last mammogram:07/31, 08/01- WNL-diagnostic studies at [place] in December- qill request Last DEXA: 01/27- Low bone mass-ordered Last colonoscopy: 06/28-repeat in 10 years Last Tdap: encouraged Last pneumonia: up to date Last Shingrix: reviewed Last Flu: reviewed Last COVID: reviewed Assessment & Plan (08/02/2025 9:50 AM MARRIAGE PERFORMER): Encouraged healthy diet and activity Please look into a power of tax attorney or living will Health Maintenance: Last Pap 04/28- NILM, Neg HPV Last mammogram:07/31, 08/01- WNL-diagnostic studies at [place] in December- qill request Last DEXA: 01/27- Low bone mass-ordered Last colonoscopy: 06/28-repeat in 10 years Last Tdap: encouraged Last pneumonia: up to date Last Shingrix: reviewed Last Flu: reviewed Last COVID: reviewed Assessment & Plan (07/22/2024 8:04 AM MARRIAGE PERFORMER): Encouraged healthy diet and activity Please look into a power of tax attorney or living will Health Maintenance: Last mammogram:07/31, 08/01- WNL Last DEXA: 01/27- Low bone mass-ordered Last colonoscopy: 06/28-repeat in 10 years Last Tdap: encouraged Last pneumonia: up to date Last Shingrix: reviewed Last Flu: reviewed Last COVID: reviewed Assessment & Plan (07/22/2023 3:28 PM MARRIAGE PERFORMER): Encouraged healthy diet and activity Please look into a power of tax attorney or living will Health Maintenance: Last mammogram:07/31- WNL Last DEXA: 01/27- Low bone mass Last colonoscopy: 06/28-repeat in 10 years Last Tdap: encouraged Last pneumonia: up to date Last Shingrix: reviewed Last Flu: reviewed Last COVID: reviewed Assessment & Plan (05/30/2022 10:09 AM CDT): Encouraged healthy diet and activity Please look into a power of tax attorney or living will Health Maintenance: Last mammogram:scheduled Last DEXA: 2020- Low bone mass Last colonoscopy: 06/28-repeat in 10 years Last Tdap: encouraged Last pneumonia: due second one Last Shingrix: reviewed Last Flu: reviewed Last COVID: reviewed Assessment & Plan (04/25/2021 2:08 PM CDT): Encouraged healthy diet and activity Please look into a power of tax attorney or living will Wear sun screen, [...] (heartburn) Assessment & Plan (07/22/2023 3:36 PM MARRIAGE PERFORMER): Chronic, stable Continue prilosec for now Consider [...] untreated Assessment & Plan (10/31/2021 1:01 PM MARRIAGE PERFORMER): With esophagitis and gastritis on her CT scan Continue Prilosec b.i.d. 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 securities vault supervisor Update me after the visit Assessment & Plan (04/25/2021 12:16 PM CDT): Continue omeprazole Reviewed the risk and benefits of medication Grief 08/01/2020 Assessment & Plan (07/22/2023 3:37 PM MARRIAGE PERFORMER): Chronic, stable Continue supportive care Assessment & Plan (05/30/2022 10:11 AM CDT): Improved, doing well with supportive care Assessment & Plan (04/25/2021 12:15 PM CDT): Patient with a significant amount of loss over the last year Continue supportive care Update me if her mood worsens or changes Assessment & Plan (08/01/2020 1:22 PM MARRIAGE PERFORMER): Some of her symptoms may be related to her most recent loss- weight loss Continue to use the support around her Update me with any concerns ICD (implantable cardioverter-defibrillator) in place 05/27/2016 Overview (06/19/2022): Medtronic Dual ICD-Evera. Dx; Cardiac Arrest, [place]. DOI 07/18/2014-Dr Bell. Carelink remote is not working. Patient prefers office checks Q3 months. Assessment & Plan (08/02/2025 9:54 AM MARRIAGE PERFORMER): Chronic, stable Continue to follow with [place] Assessment & Plan (11/25/2024 11:51 AM CDT): Orders: CT Coronary Calcium Scoring; Future Assessment & Plan (07/22/2023 3:38 PM MARRIAGE PERFORMER): Chronic, stable Managed by cardiology Assessment & [...] Orders: Ambulatory referral to Endocrinology Thyroid Function [place]; Future Thyroglobulin antibodies; Future Assessment & Plan (03/03/2025 9:16 AM CDT): Orders: Ambulatory referral to Endocrinology; Future Assessment & Plan (12/21/2024 12:26 PM CDT): Assessment & Plan (07/22/2023 3:38 PM MARRIAGE PERFORMER): Chronic, stable Managed by oncology Continue to monitor Assessment & Plan (05/30/2022 10:12 AM CDT): Chronic, stable Follows with oncology Continue synthroid Assessment & Plan (04/25/2021 2:10 PM CDT): Continue levothyroxine at current dose Continue to follow with Dr Barclay Resolved Problems Problem Noted Date Diagnosed Date Resolved Date Abnormal CT of the chest 05/18/2025 Assessment & Plan (05/18/2025 9:10 AM CDT): Acute, new Follow up CT reviewed- normal Hypokalemia 06/02/2023 07/22/2024 Assessment & Plan (07/22/2023 3:38 PM MARRIAGE PERFORMER): Chronic,s table Continue replacement History of torsades de pointes 05/08/2021 07/22/2024 Assessment & Plan (07/22/2023 3:38 PM MARRIAGE PERFORMER): Chronic, stable Managed by cardiology S/p pacemaker Assessment & Plan (05/30/2022 10:12 AM CDT): S/p pacemaker Continue to follow with cardiology Allergic rhinitis 04/25/2021 07/22/2024 Assessment & Plan (07/22/2023 3:29 PM MARRIAGE PERFORMER): Chronic, stable Asymptomatic Continue to monitor Assessment & Plan (05/30/2022 10:09 AM CDT): Chronic, stable Assessment & Plan (04/25/2021 2:11 PM CDT): Continue flonase Thyroid cancer ([facility]) 04/17/2018 Cardiac arrest 05/27/2016 11/13/2021 Assessment & Plan (04/25/2021 12:15 PM CDT): Continue to follow with Cardiology ICD in place Update me with any changes Assessment & Plan (01/13/2020 1:11 PM CDT): No indication for antiarrhythmics. Continue Inderal as needed for palpitations Assessment & Plan (01/07/2019 3:45 PM CDT): Intraop. Etiology unclear Defibrillator discharge 06/17/20150 11/2020 Encounters Date Type Department Care Team Description 08/02/2025 9:30 AM MARRIAGE PERFORMER Office Visit [facility] [address] [place] [phone] Amarilis Mcfarlane MD Encounter for Medicare annual wellness exam (Primary Dx); Postoperative hypothyroidism; Primary hypertension; QT prolongation; Mixed hyperlipidemia; History of thyroid cancer; ICD (implantable cardioverter-defibril lator) in place; Low bone mass; Gastroesophageal reflux disease without esophagitis; Torsades de pointes (HCC); Renal cyst, right; Postmenopausal status; Cervical cancer screening 07/21/2025 Results Follow-Up [facility] [address] [phone] Talita Preciado MA Thyroid Function [place], T4, free 07/19/2025 7:55 AM MARRIAGE PERFORMER Lab [facility] [address] [place] [id number] 07/19/2025 7:40 AM MARRIAGE PERFORMER Lab [facility] [address] [place] [id number] Mixed hyperlipidemia; Primary hypertension; Elevated glucose 07/19/2025 Results Follow-Up [address] [phone] Amarilis Mcfarlane MD Comprehensive metabolic panel, CBC with auto differential, Lipid panel, Additional followed-up results: 4 07/14/[address] [phone] Amarilis Mcfarlane MD 07/08/[address] [phone] Amarilis Mcfarlane MD 06/21/2025 8:30 AM CDT Office Visit [facility] [address] [phone] Candi Le MD Postoperative hypothyroidism (Primary Dx) 06/07/2025 12:05 PM CDT Lab [facility] [address] [place] [id number] Postoperative hypothyroidism 06/07/2025 Results Follow-Up [facility] [address] [phone] Talita Preciado MA Thyroid Function [place] 06/07/2025 Telephone [facility] [address] [place] [address] Candi Le MD 06/07/2025 Telephone [facility] [address] [phone] Candi Le MD lab order 05/25/2025 Results Follow-Up [address] [phone] Amarilis Mcfarlane MD TSH W/REFL FT4 05/23/2025 Orders Only [address] [phone] Amarilis Mcfarlane MD 05/18/2025 8:30 AM CDT Office Visit [address] [phone] Amarilis Mcfarlane MD Postoperative hypothyroidism (Primary Dx); Insomnia, unspecified type; Abnormal CT of the chest; Renal cyst, right; Primary hypertension; Diarrhea, unspecified type; Postmenopausal status 05/11/2025 Results Follow-Up [facility] Oncology [address] [place] [phone] aNdira Beck RN US Thyroid 05/10/2025 Results Follow-Up [address] [phone] Chest WO Contrast from Last 3 Months Immunizations Immunization Administration Dates Next Due Influenza, Quad, Adjuvantate d, Intramuscular 06/23/2023,06/03/2022,06/25/2021 Influenza, Quadrivalent, Rec ombinant, Egg Free, Preservative Free, Intramuscular 06/29/2020 Influenza, Quadrivalent, Spl it, Preservative Free, Intramuscular 06/16/2019 Influenza, Trivalent, Adjuva nted, Intramuscular 05/27/2025,06/18/2024 Influenza, Unspecified 06/10/2023(Deferr ed: Patient ill today),05/26/2023(Deferred: [...] arrhythmia Hx of thyroid cancer QT prolongation 2013 TRansient, reult ing in [place] cardiac arrest [...] CAD. Heart attack Mother age 90 of [place] Hypertension Mother Breast cancer Sister Relation Name [...] points, staff should administer the PHQ-9) 0 08/02/2025 PHQ-9 Answer Date Recorded PHQ-9 Total Score [...] on file Legal Sex Female 7:51 AM MARRIAGE PERFORMER Gender Identity Female 06/06/2023 10:34 AM CDT Sexual Orientation Straight 06/06/2023 10 :34 AM CDT Obstetrics History Para Term AB IAB SAB Ectopic Multiple Livin g Live Births 3 3 3 Date Outcome GA Total Labor Labor/2nd/3rd Weight Sex Type Anes PTL Fela A1 A5 Name Clin Term Term Term Last Filed Vital Signs Vital Sign Reading Time Taken Comments Blood Pressure 122/72 08/02/2025 9:15 AM MARRIAGE PERFORMER Pulse 84 08/02/2025 9:15 AM MARRIAGE PERFORMER Temperature 36.4 C (97.5 F) 08/02/2025 9:15 AM MARRIAGE PERFORMER Respiratory Rate 16 08/02/2025 9:15 AM MARRIAGE PERFORMER Oxygen Saturation 97% 08/02/2025 9:15 AM MARRIAGE PERFORMER Inhaled Oxygen Concentration - - Weight 78.1 kg (172 lb 3.2 oz) 08/02/2025 9:15 A M MARRIAGE PERFORMER Height 165.1 cm (5' 5) 08/02/2025 9:15 AM MARRIAGE PERFORMER Body Mass Index 28.66 08/02/2025 9:15 AM MARRIAGE PERFORMER Plan of Treatment Health Maintenance Due Date Last Done Comments Hepatitis B Screening 1974 Zoster Vaccine (1 of 2) 2006 Osteoporosis Screening-Bone Density Scan 02/01/2024 01/31/2022 Covid-19 Vaccine (2024-2 6 season) 2025 09/15/2023, 11/13/2020, 10/17/2020 Breast Cancer Screening-Mammogram 12/27/2025 12/27/2024, 07/16/2024, 07/15/2023, Additional history exists Depression Screening 08/02/2026 08/02/2025, 05/18/2025, 04/20/2025, Additional history exists Fall Risk Assessment 08/02/2026 08/02/2025, 05/06/2025, 03/22/2025, Additional history exists Well Visit 65+ 08/02/2026 08/02/2025, 07/09, 07/22/2023, Additional history exists Colon Cancer Screening-Colonoscopy 06/27/2031 06/27/2021 DTaP/Tdap/Td Vaccine (2 - Td or Tdap) 09/13/2033 09/13/2023, 09/03/2023 Colon Cancer Screening-CT Colonography Discontinued 06/27/2021 Colon Cancer Screening-DNA Stool Discontinued 06/27/20 Colon Cancer Screening-FIT Discontinued 06/27/2021 Colon Cancer Screening-Sigmoidoscopy Discontinued 06/27/2021 Hepatitis C Screening Completed 06/04/2022 Pneumococcal vaccine 65+ Completed 12/09/2022, 10/10 Influenza Vaccine Completed 05/27/2025, , 06/23/2023, Additional history exists Procedures Procedure Name Priority Date/Time Associated Diagnosis Comments EGFR Routine 07/19/2025 8:27 AM MARRIAGE PERFORMER Mixed hyperlipidemia DIFFERENTIAL AUTO Routine 07/19/2025 8:2 7 AM MARRIAGE PERFORMER Primary hypertension HEMOGLOBIN A1C Routine 07/19/2025 8:27 AM MARRIAGE PERFORMER Elevated glucose ALBUMIN CREATININE RATIO, URINE Routine 07/19/2025 8:27 AM MARRIAGE PERFORMER Primary hypertension LIPID PANEL Routine 07/19/2025 8:27 AM MARRIAGE PERFORMER Mixed hyperlipidemia CBC WITH AUTO DIFFERENTIAL Routine 07/19/2025 8:27 AM MARRIAGE PERFORMER Primary hypertension COMPREHENSIVE METABOLIC PANEL Routine 07/19/2025 8:27 AM MARRIAGE PERFORMER Mixed hyperlipidemia T4, FREE Routine 07/19/2025 7:57 AM MARRIAGE PERFORMER THYROID FUNCTION CASCADE Routine 07/19/2025 7:57 AM MARRIAGE PERFORMER THYROID FUNCTION CASCADE Routine 06/07/2025 12:16 PM CDT Postoperative hypothyroidism TSH W/REFL FT4 Routine 05/23/2025 7:32 AM CDT HM MAMMOGRAPHY Routine 12/27/2024 1:02 PM CDT HEPATITIS C ANTIBODY Routine 06/04/2022 9:22 AM CDT Need for hepatitis C screening test DEXA AXIAL SKELETON BONE DENSITY 1 OR MORE SITES Schedule Routine, Read Routine (OP Routine) 01/31/2022 9:03 AM CDT Postmenopausal status COLONOSCOPY Routine 06/27/2021 from Last 3 Months or Most Recently Relevant to Health Maintenance Results * eGFR (07/19/2025 8:27 AM MARRIAGE PERFORMER) eGFR 69 >=60 mL/min/1. 73 m2 Comment: Interpretive Data [...] last reviewed 2021. Testing performed by: [facility], [address] [place] [address], [place]., [address] Blood 07/19/2025 8:27 AM MARRIAGE PERFORMER 07/19/2025 8:55 AM MARRIAGE PERFORMER us Amarilis Mcfarlane MD LAB BLOOD ORDERABLE S Final Result [facility] [address] [facility] Department [place] [address] * Differential, auto (07/19/2025 8:27 AM MARRIAGE PERFORMER) Neutrophil abs 3.30 1.50 - 6.50 K/cumm Comment:Testing performed by : [address] [address] Imm gran abs 0.02 0.00 - 0.10 K/cumm [facility] Comment:Testing performed by : [address] [address] Lymphocyte abs 1.17 0.80 - 3.30 K/cumm [facility] Comment:Testing performed by : [address] [address] Monocyte abs 0.37 0.20 - 0.80 K/cumm [facility] Comment:Testing performed by : [address] [address] Eosinophil abs 0.19 0.00 - 0.50 K/cumm [facility]ON Comment:Testing performed by : [address] [address] Basophil abs 0.04 0.00 - 0.10 K/cumm [facility] Comment:Testing performed by : [address] [address] Neutrophil pct 64.8 % [facility] Comment: Interpretive Data Percent cell count reference ranges are not reported, since discordance with absolute values may lead to misinterpretation of CBC data. Current Interpretive Data was last revised on 2017. Testing performed by: [address] [address] Imm gran pct 0.4 % [facility] Comment: Interpretive Data Percent cell count reference ranges are not reported, since discordance with absolute values may lead to misinterpretation of CBC data. Current Interpretive Data was last revised on 2017. Testing performed by: [address] [address] Lymphocyte pct 23.0 % [facility] Comment: Interpretive Data Percent cell count reference ranges are not reported, since discordance with absolute values may lead to misinterpretation of CBC data. Current Interpretive Data was last revised on 2017. Testing performed by: [address] [address] Monocyte pct 7.3 % [facility] Comment: Interpretive Data Percent cell count reference ranges are not reported, since discordance with absolute values may lead to misinterpretation of CBC data. Current Interpretive Data was last revised on 2017. Testing performed by: [address] [address] Eosinophil pct 3.7 % [facility] Comment: Interpretive Data Percent cell count reference ranges are not reported, since discordance with absolute values may lead to misinterpretation of CBC data. Current Interpretive Data was last revised on 2017. Testing performed by: [address] [address] Basophil pct 0.8 % [facility] Comment: Interpretive Data Percent cell count reference ranges are not reported, since discordance with absolute values may lead to misinterpretation of CBC data. Current Interpretive Data was last revised on 2017. Testing performed by: [address] [address] Blood 07/19/2025 8:27 AM MARRIAGE PERFORMER 07/19/2025 8:55 AM MARRIAGE PERFORMER us Amarilis Mcfarlane MD LAB BLOOD ORDERABLE S Final Result [facility] [address] [facility] Department [place] [address] * CBC with auto differential (07/19/2025 8:27 AM MARRIAGE PERFORMER) WBC 5.09 3.80 - 9.90 K/cumm Comment:Testing performed by : [address] [address] Hgb 14.1 11.9 - 15.5 g/dL [facility] Comment:Testing performed by : [address] [address] Hct 43.1 35.6 - 45.5 % [facility] Comment:Testing performed by : [address], [address] Plt 241 150 - 400 K/cumm [facility] Comment:Testing performed by : [address], [address] MPV 10.9 9.1 - 12.3 fL [facility] Comment:Testing performed by : [address], [address] RBC 4.70 3.90 - 5.20 M/cumm [facility] Comment:Testing performed by : [address], [address] MCV 91.7 81.3 - 96.4 fL [facility] Comment:Testing performed by : [address], [address] MCH 30.0 27.1 - 33.3 pg [facility] Comment:Testing performed by : [address], [address] MCHC 32.7 32.3 - 35.7 g/dL [facility] Comment:Testing performed by : [address], [address] RDW CV 12.7 11.1 - 14.9 % [facility]ON Comment:Testing performed by : [address], [address] RDW SD 42.5 35.7 - 48.1 fL [facility] Comment:Testing performed by : [address], [address] NRBC abs 0.00 0.00 - 0.01 K/cumm [facility] Comment:Testing performed by : [address], [address] Blood 07/19/2025 8:27 AM MARRIAGE PERFORMER 07/19/2025 8:55 AM MARRIAGE PERFORMER us Amarilis Mcfarlane MD LAB BLOOD ORDERABLE S Final Result [facility] [address] [facility] [place] [address] * Albumin Creatinine Ratio, Urine (07/19/2025 8:27 AM MARRIAGE PERFORMER) Albumin Ur <12.0 mg/L Comment: Interpretive Data No reference range established. Current interpretive data was last revised 2019. Testing performed by: [address] [address] Creatinine Ur 99.2 mg/dL [facility]ON Comment: Interpretive Data No reference range established. Current interpretive data was last revised 2019. Testing performed by: [address] [address] Albumin Creatinine Ratio, Ur <12 1 - 29 mg/g [facility] Comment:Testing performed by : [address] [address] Urine 07/19/2025 8:27 AM MARRIAGE PERFORMER 07/19/2025 9:52 AM MARRIAGE PERFORMER us Amarilis Mcfarlane MD LAB URINE ORDERABLE S Final Result [facility] [address] [facility] [place] [address] * Hemoglobin A1c (07/19/2025 8:27 AM MARRIAGE PERFORMER) Pathologist [facility] Hgb A1C 5.2 4.0 - 5.6 % Comment:Testing performed by : [address] [address] Estimated Average Glucose 103 mg/dL [facility] Comment: The ADA recommends reporting an estimated Average Glucose (eAG) with all Hemoglobin A1c results using the equation derived from a study of 507 normal and diabetic adults. Minority populations were underrepresented and children were not included. (Diabetes Care 31:7120-4828, 2008). The eAG is not equivalent to a fasting glucose. Testing performed by: [address] [address] Blood 07/19/2025 8:27 AM MARRIAGE PERFORMER 07/19/2025 8:55 AM MARRIAGE PERFORMER us Amarilis Mcfarlane MD LAB BLOOD ORDERABLE S Final Result SHARON 0609 [facility] Department [place] [address] * Lipid panel (07/19/2025 8:27 AM MARRIAGE PERFORMER) Cholesterol 187 30 - 199 mg/dL Comment: Interpretive Data Ages < or = 19 years Acceptable: <170 mg/dL Borderline high: 170-199 mg/dL High: >or= 200 mg/dL Ages > or = 20 years Desirable: <200 mg/dL Borderline high: 200-239 mg/dL High: >or= 240 mg/dL Literature References: 1. Expert Panel on Integrated Guidelines for Cardiovascular Health and Risk Reduction in Children and Adolescents. Pediatrics 2011;128:S213 2. NCEP Expert Panel. Circulation 2004;110:227 Current Interpretive Data was last revised on 2018. Testing performed by: [address] [address] Triglycerides 103 <=149 mg/dL SHARON Comment: Interpretive Data Ages < or = 9 years Acceptable: <75 mg/dL Borderline high: 75-99 mg/dL High: >or= 100 mg/dL Ages 10 to 20 years Acceptable: <90 mg/dL Borderline high: 90-129 mg/dL High: >or= 130 mg/dL Ages > or = 20 years Desirable: <150 mg/dL Borderline high: 150-199 mg/dL High: 200-499 mg/dL Very high: >or= 499 mg/dL Literature References: 1. Expert Panel on Integrated Guidelines for Cardiovascular Health and Risk Reduction in Children and Adolescents. Pediatrics 2011;128:S213 2. NCEP Expert Panel. Circulation 2004;110:227 Current Interpretive Data was last revised on 2018. Testing performed by: [address] [address] HDL 65 >=40 mg/dL SHARON Comment: Interpretive Data Ages < or = 19 years Acceptable: >45 mg/dL Borderline low: 40-45 mg/dL Low: <40 mg/dL Ages > or = 20 years Desirable: >or= 60 mg/dL Low: <40 mg/dL Literature References: 1. Expert Panel on Integrated Guidelines for Cardiovascular Health and Risk Reduction in Children and Adolescents. Pediatrics 2011;128:S213 2. NCEP Expert Panel. Circulation 2004;110:227 Current Interpretive Data was last revised on 2018. Testing performed by: [address] [address] LDL, calculated 104 <=129 mg/dL SHARON QUINN Comment: Interpretive Data Ages < or = 19 years Acceptable: <110 mg/dL Borderline high: 110-129 mg/dL High: >or= 130 mg/dL Ages > or = 20 years Optimal: <100 mg/dL Near optimal: 100-129 mg/dL Borderline high: 130-159 mg/dL High: >160 mg/dL Calculated using the Donovan LDL-C estimating equation. This equation was implemented on 2024. Prior to this date LDL-C was estimated using the Friedewald equation. Literature References: 1. Expert Panel on Integrated Guidelines for Cardiovascular Health and Risk Reduction in Children and Adolescents. Pediatrics 2011;128:S213 2. NCEP Expert Panel. Circulation 2004;110:227 3. Donovan Chavez et al. LEXX Cardiol. 2020 January 06;5(5):540-548. doi: 10.1001/jamacardio.2020.0013 Current Interpretive Data was last revised on 2024. Testing performed by: [address] [address] Non-HDL Cholesterol 122 mg/dL SHARON QUINN Comment: Interpretive Data Ages < or = 19 years Acceptable: <120 mg/dL Borderline high: 120-144 mg/dL High: >145 mg/dL Ages > or = 20 years When triglycerides are >200 mg/dL, Non-HDL cholesterol is a secondary target of therapy with treatment goals that are 30 mg/dL greater than the LDL cholesterol target. Literature References: 1. Expert Panel on Integrated Guidelines for Cardiovascular Health and Risk Reduction in Children and Adolescents. Pediatrics 2011;128:S213 2. NCEP Expert Panel. Circulation 2004;110:227 Current Interpretive Data was last revised on 2018. Testing performed by: [address] [address] Chol/HDL ratio 3 SHARON Comment:Testing performed by : [address] [address] Blood 07/19/2025 8:27 AM MARRIAGE PERFORMER 07/19/2025 8:55 AM MARRIAGE PERFORMER us Amarilis Mcfarlane MD LAB BLOOD ORDERABLE S Final Result SHARON 8910 [facility] Department [place] [address] * Comprehensive metabolic panel (07/19/2025 8:27 AM MARRIAGE PERFORMER) Sodium 144 135 - 145 mmol/L Comment:Testing performed by : [address] [address] Potassium, pl 4.5 3.3 - 4.9 mmol/L SHARON Comment:Testing performed by : [address] [address] Chloride 108 97 - 110 mmol/L SHARON Comment:Testing performed by : [address] [address] CO2 27 22 - 32 mmol/L SHARON Comment:Testing performed by : [address] [address] Anion gap 9 2 - 15 mmol/L SHARON Comment:Testing performed by : [address] [address] BUN 18 6 - 25 mg/dL SHARON Comment:Testing performed by : [address] [address] Creatinine 0.90 0.60 - 1.10 mg/dL SHARON Comment:Testing performed by : [address] [address] Glucose 84 70 - 199 mg/dL SHARON Comment: Interpretive [...] last revised 2022. Testing performed by: [facility], [address] [place] [address]., [address] Calcium 8.8 8.5 - 10.3 mg/dL SHARON Comment:Testing performed by : [address] [address] Bilirubin, total 0.6 0.1 - 1.2 mg/dL SHARON Comment:Testing performed by : [address] [address] Protein, pl 6.8 6.5 - 8.5 g/dL SHARON Comment:Testing performed by : [address] [address] Albumin 4.4 3.5 - 5.0 g/dL SHARON Comment:Testing performed by : [address] [address] Alk phos 92 40 - 130 Units/L SHARON Comment:Testing performed by : [address] [address] ALT 12 7 - 45 Units/L SHARON Comment:Testing performed by : [address] [address] AST 19 10 - 45 Units/L SHARON Comment:Testing performed by : [address] [address] Blood 07/19/2025 8:27 AM MARRIAGE PERFORMER 07/19/2025 8:55 AM MARRIAGE PERFORMER us Amarilis Mcfarlane MD LAB BLOOD ORDERABLE S Final Result SHARON 3356 [facility] Department [place] [address] * Thyroid Function [place] (07/19/2025 7:57 AM MARRIAGE PERFORMER) TSH 1.45 0.30 - 4.20 mcIUnit/mL Comment:Testing performed by : [address] [address] Blood 07/19/2025 7:57 AM MARRIAGE PERFORMER 07/19/2025 8:53 AM MARRIAGE PERFORMER us Candi Le MD LAB BLOOD ORDERABLES Final Resul t [address] [place] [address] * T4, free (07/19/2025 7:57 AM MARRIAGE PERFORMER) Pathologist [facility] Free T4 1.67 0.90 - 1.70 ng/dL Comment:Testing performed by : [address] [address] Blood 07/19/2025 7:57 AM MARRIAGE PERFORMER 07/19/2025 8:53 AM MARRIAGE PERFORMER us Candi Le MD LAB BLOOD ORDERABLES Final Resul t Performing Organization Address [facility] Co de Phone Number [address] [place] [address] * Thyroid Function [place] (06/07/2025 12:16 PM CDT) Pathologist [facility] TSH 1.31 0.30 - 4.20 mcIUnit/mL Comment:Testing performed by : [address] [address] Blood 06/07/2025 12:1 6 PM CDT 06/07/2025 12:19 PM CDT us Candi Le MD LAB BLOOD ORDERABLES Final Resul t [address] [place] [address] * TSH W/REFL FT4 (05/23/2025 7:32 AM CDT) TSH 1.39 0.40 - 4.50 mIU/L [facility] 05/23/2025 7:32 AM CDT 05/23/2025 7:33 AM CDT Amarilis Mcfarlane MD LAB BLOOD ORDERABLE S Final Result Performing Organization Address City/[facility]/ZIP Co de Phone Number [facility] [address] [place] [address] * HM MAMMOGRAPHY (12/27/2024 1:02 PM CDT) [...] a test for HCV RNA (test code 93973) is suggested. For additional information please refer to http://education.FilesX/faq/YBS30p2 (This link is being provided for informational/ educational purposes only.) Blood 06/04/2022 9:22 AM CDT 06/04/2022 9:25 AM CDT Narrative [facility] - 06/05/2022 10:11 AM CDT FASTING:YES FASTING: YES Amarilis Mcfarlane MD LAB MICROBIOLOGY - GENERAL ORDERABLES Final Result Performing Organization Address [facility]/ZIP Co de Phone Number [facility] [address] [place] [address] * Dexa Axial Skeleton Bone Density 1 or 2 Site (01/31/2022 9:03 AM CDT) Anatomical Region Laterality Modality Body N/A Mammography 01/31/2022 3:21 PM CDT Narrative 01/31/2022 3:21 PM CDT EXAM DESCRIPTION: DEXA AXIAL SKELETON BONE DENSITY 1 OR MORE SITES REASON FOR STUDY: 66 y/o year old F with given history of screening. 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 TB: TB Report ID: [id number] Reading Location: [facility] Procedure Note MiddletonAmrita MD - 01/31/2022 EXAM DESCRIPTION: DEXA AXIAL SKELETON BONE DENSITY 1 OR MORE SITES REASON FOR STUDY: 66 y/o year old F with given history ofscreening. 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 TB: TB Report ID: [id number] Reading Location: [facility] Amarilis Mcfarlane MD IMG DXA PROCEDURES Final Result * Colonoscopy (06/27/2021) Anatomical Region Laterality Modality Other Historical Provider ENDOSCOPY PROCEDURES Milagros l Result from Last 3 Months or Most Recently Relevant to Health Maintenance Insurance MEDICARE [facility] MEDICARE [place] MEDICARE [place] Care Teams Director Multiple Sclerosis Center Relationship Specialty Start Date End Date Amarilis Mcfarlane MD [address] [place] [address] PCP - General Family Medicine 06/29/20 Bayron Barclay DO [address] [place] [address] MEDICAL ONCOLOGY, [facility] [address] [place] [address] Medical Oncologist/Sand Mill Operator Facing Sand Hematology and Oncology 04/28/23 Christine Roper PA [address] [place] [address] Physician Music Executive Family Medicine 03/03/25
--- OUTSIDE RECORDS SUMMARY | 2025-08-07 09:45 | XMS_ITS | Clinical Summary ---
Author Organization [facility] Care Team Providers Care Web Knitter Name Role Phone Unavailable Primary Care Provider Unavailabl e Social History Tobacco Use Types Packs/Day Years Used Date Smoking Tobacco: Never Assessed Comments Unknown Sex and Gender Information Value Date Recorded Sex Assigned at Not on file Legal Sex Female 8:12 AM HYDROMETER FINISHER Gender Identity Not on file Sexual Orientation [...]
--- OUTSIDE RECORDS SUMMARY | 2025-08-07 09:45 | XMS_ITS | Encounter Summary ---
Author Organization [facility] Facility Care Team Providers Care Web Support Engineer Name Role Phone Brielle Mack MD Primary Care Provider [phone] Amarilis Mcfarlane MD Primary Care Provi julito Bayron Barclay DO Unavailable [phone] Christine Roper Unavailable [phone] Encounter Details Date Type Department Care Team (Latest Contact Info) Description 11/11/2016 Orders Only [facility] CLINCONV ProviderIvonne MD [address] [place] [address] Social History Tobacco Use Types Packs/Day Years Used Date Smoking Tobacco: Never Assessed Comments Unknown Sex and Gender Information Value Date Recorded Sex Assigned at Not on file Legal Sex Female 7:51 AM WIND PROJECT MANAGER Gender Identity Female 06/06/2023 10:34 AM CDT Sexual Orientation Straight 06/06/2023 10 :34 AM CDT documented as of this encounter Functional Status documented as of this encounter Plan of Treatment Not on file documented as of this encounter Procedures Procedure Name Priority Date/Time Associated Diagnosis Comments CARDIOLOGY REPORT 11/13/2016 12: 00 AM WIND PROJECT MANAGER documented in this encounter Results * CARDIOLOGY REPORT (11/13/2016 12:00 AM WIND PROJECT MANAGER) Anatomical Region Laterality Modality Other Narrative 11/13/2016 12:00 AM WIND PROJECT MANAGER Ordered by an unspecified provider. Historical Provider [facility] CARDIAC SERVICES YAMILET ZHANG Final Result documented in this encounter Visit Diagnoses Not on filedocumented in this encounter Additional Health Concerns Infection Onset Date Last Indicated Resolved Time COVID: Suspected 09/13/2021 09/13/2021 09/14/2021 12:34 AM WIND PROJECT MANAGER COVID: Suspected 05/25/2024 05/25/2024 05/25/2024 9:56 AM CDT documented as of this encounter Care Teams Web Support Engineer Relationship Specialty Start Date End Date Brielle Mack MD PCP - General 10/23/17 06/28/20 Amarilis Mcfarlane MD [address] [place] [address] PCP - General Family Medicine 06/29/20 Bayron Barclay DO [address] [place] [address] MEDICAL ONCOLOGY, [facility] [address] [place] [address] Medical Oncologist/On Site Coordinator Hematology and Oncology 04/28/23 Christine Roper PA [address] [place], [place] [address] Physician Slubber Tender Family Medicine 03/03/25 documented as of this encounter
--- OUTSIDE RECORDS SUMMARY | 2025-08-07 09:45 | XMS_ITS | Clinical Summary ---
Author Organization [facility] Address [address] [place] [address] Care Team Providers Care Automation Test Engineer Name Role Phone Amarilis Mcfarlane MD [...] tablet TAKE 1 TABLET BY MOUTH DAILY ADMINISTRATION PROFESSIONAL BEFORE BREAKFAST Active losartan (COZAAR) 100 MG [...] Encounters Date Type Department Care Team Description 07/15/2025 Telephone [facility] [address] Jaki Coelho RN Question 05/30/2025 2:40 PM CDT Allied Health/Nurse Visit [facility] [address] Felix Wild MD Remote Device Check 05/30/2025 Travel from Last 3 Months Family History Medical History Relation Comments Cancer Brother 1 Lymphoma Diabetes Brother 2 Heart Disease Brother 2 MN Brother 2 Diabetes Brother 3 Diabetes Father Heart Disease Father [place] Father Hyperlipidemia Mother Hypertension Mother Stroke Paternal [...] on file Legal Sex Female 3:46 PM MARBLE FINISHER Gender Identity Not on file Sexual [...] st Contact Info) Description 08/29/2025 3:05 PM MARBLE FINISHER Allied Health/Nurse Visit [facility] [address] [place] [address] Felix Wild MD Three [facility]. [address] [place] [address] 12/15/2025 9:45 AM CDT Office Visit [facility] [place] [address] [place] [address] Felix Wild MD [facility]. [address] [place], [place] [address] Olesya Johnston, HOSPITAL PHARMACIST [address] [facility] [address] [place], [place] [address] Health Maintenance Due Date Last Done Comments [...] this topic Medical Devices Implanted Type Area Preparole Counseling Aide Device Identifier Shelf Expiration Date Model / Serial / Lot Hsc-Eek-Vlmdv- [facility]-07/18/2014 Implanted:Qty: 1 on 07/18/2014 by Yona Bell MD ICD [employer] CARDIAC RHYTHM AND HEART FAILURE - DIV M [id number] / [id number] / Rv Lead Xqhmmer-Jss-Ps i-07/18/2014 Implanted:Qty: 1 on 07/18/2014 by Yoan Bell MD Lead Implant [employer] CARDIAC RHYTHM AND HEART FAILURE - DIV M [id number] / [id number] / Description:RV-[place] Ra Lead Vskhuld-Tdc-Ez i-07/18/2014 Implanted:Qty: 1 on 07/18/2014 by Yoan Bell MD Lead Implant [employer] CARDIAC RHYTHM AND HEART FAILURE - DIV M [id number] / [id number] / Description:RA-Appendage Insurance [place] [address] [place] [id number] Emerald [employer] [facility] Eveo Care Teams Automation Test Engineer Relationship Specialty Start Date End Date Amarilis Mcfarlane MD [address] [facility] [address] [place] [address] PCP - General FAMILY PRACTICE 12/09/24
--- OUTSIDE RECORDS SUMMARY | 2025-08-07 09:45 | XMS_ITS | Encounter Summary ---
Author Organization [facility] Facility Care Team Providers Care Corporate Statistical Financial Analyst Name Role Phone Brielle Mack MD Primary Care Provider [phone] Amarilis Mcfarlane MD Primary Care Provi julito Bayron Barclay DO Unavailable [phone] Christine Roper Unavailable [phone] Encounter Details Date Type Department Care Team (Latest Contact Info) Description 12/01/2017 Orders Only [facility] CLINCONV ProviderIvonne MD [address] [place] [address] Social History Tobacco Use Types Packs/Day Years Used Date Smoking Tobacco: Never Assessed Comments Unknown Sex and Gender Information Value Date Recorded Sex Assigned at Not on file Legal Sex Female 7:51 AM TANDEM MILL OPERATOR Gender Identity Female 06/06/2023 10:34 AM [...] COVID: Suspected 09/13/2021 09/13/2021 09/14/2021 12:34 AM TANDEM MILL OPERATOR COVID: Suspected 05/25/2024 05/25/2024 05/25/2024 9:56 AM CDT documented as of this encounter Care Teams Corporate Statistical Financial Analyst Relationship Specialty Start Date End Date Brielle Mack MD PCP - General 10/23/17 06/28/20 Amarilis Mcfarlane MD [address] [place] [address] PCP - General Family Medicine 06/29/20 Bayron Barclay DO [address] [place] [address] MEDICAL ONCOLOGY, [facility] [address] [place] [address] Medical Oncologist/Training Personnel Supervisor Hematology and Oncology 04/28/23 Christine Roper PA [address] [place], [place] [address] Physician Director Hr Communications Family Medicine 03/03/25 documented as of this encounter
--- OUTSIDE RECORDS SUMMARY | 2025-08-07 09:45 | XMS_ITS | Encounter Summary ---
Author Organization [facility] Address [address] [place] [address] Care Team Providers Care Lopper Name Role Phone Amarilis Mcfarlane MD Primary Care Provi julito Bayron Barclay DO Unavailable [phone] Christine Roper Unavailable [phone] Encounter Details Date Type Department Care Team (Late st Contact Info) Description 05/05/2025 Telephone [facility] - Interventional Radiology [address] [place] [address] Carlton Smith, ERIC Social History [...] file Legal Sex Female 7:51 AM DIRECTOR OF PUBLICATIONS Gender Identity Female 06/06/2023 10:34 AM CDT Sexual Orientation Straight 06/06/2023 10 :34 AM CDT documented as of this encounter Functional Status * Question Answer Date of Assessment Author MAP (mmHg) 98 05/06/2025 8:45 AM CDT Laxmi Baron RN * Kat Fall Risk Question Answer Date of Assessment Author History of Falling 0 05/06/2025 7:16 AM SAQIBT Kristin Duenas RN Secondary Diagnosis 15 05/06/2025 7:16 AM CD T Kristin Duenas RN Ambulatory Aids 0 05/06/2025 7:16 AM CDT Kristin Nj RN Intravenous Therapy/Heparin/Saline Lock 20 05/06/2025 7:16 AM Kristin Nesbitt RN Gait/Transferring 0 05/06/2025 7:16 AM Kristin Nesbitt RN Mental Status 0 05/06/2025 7:16 AM SAQIBT Kristin Roth RN Morse Fall Risk Score (Score >= 45 places fall precaution order) 35 05/06/2025 7:16 AM Kristin Nesbitt RN Prior Fall Event (Autopopulated from EMR) None found 05/06/2025 7:16 AM Robin Nesbitt RN documented as of this encounter Plan of Treatment Not on file documented as of this encounter Visit Diagnoses Not on filedocumented in this encounter Care Teams Lopper Relationship Specialty Start Date End Date Amarilis Mcfarlane MD [facility] [address] [place] [address] PCP - General Family Medicine 06/29/20 Bayron Barclay DO [address] DIV IM MEDICAL ONCOLOGY, [facility] [address] [place], [place] [id number] Medical Oncologist/Kennel Aide Hematology and Oncology 04/28/23 Christine Roper PA [address] [place] [address] Physician Fire Alarm Installer Family Medicine 03/03/25 documented as of this encounter
--- OUTSIDE RECORDS SUMMARY | 2025-08-07 09:45 | XMS_ITS | Clinical Summary ---
Author Organization [facility] Address [address] [place] [address] Care Team Providers Care Scientific Research Manager Name Role Phone Brielle Mack MD Primary Care Provider [phone] Source Comments [facility],non-owned Affiliates and Associated Physician Practices is amultiple site organization consisting of ambulatory clinics and hospital sitesin [place], [place], [place] and [place]. This disclosure is being madepursuant to the Care Everywhere program and may not contain all information available regarding this patient. Last updated 18.[facility] Allergies Active Allergy Reactions Criticality Noted Date [...] DEPRESSION SCREENING 09/08/2024 COVID-19 VACCINE (1 - 5-2 6 season) 2025 INFLUENZA VACCINE (#1) 2025 06/08/2017 [...] Insurance [employer] HE[employer] MEDICARE Care Teams Scientific Research Manager Relationship Specialty Start Date End Date Brielle Mack MD PCP - General Family Medicine 01/08/19
--- OUTSIDE RECORDS SUMMARY | 2025-08-07 09:45 | XMS_ITS | Encounter Summary ---
Author Organization [facility] Facility Care Team Providers Care Commercial Sewing Instructor Name Role Phone Brielle Mack MD Primary Care Provider [phone] Amarilis Mcfarlane MD Primary Care Provi julito Bayron Barclay DO Unavailable [phone] Christine Roper Unavailable [phone] Encounter Details Date Type Department Care Team (Latest Contact Info) Description 07/02/2017 Orders Only [facility] CLINCONV Provider, MD Ivonne [address] [place] [address] Social History Tobacco Use Types Packs/Day Years Used Date Smoking Tobacco: Never Assessed Comments Unknown Sex and Gender Information Value Date Recorded Sex Assigned at Not on file Legal Sex Female 7:51 AM RHEOLOGIST Gender Identity Female 06/06/2023 10:34 AM CDT [...] COVID: Suspected 09/13/2021 09/13/2021 09/14/2021 12:34 AM RHEOLOGIST COVID: Suspected 05/25/2024 05/25/2024 05/25/2024 9:56 AM CDT documented as of this encounter Care Teams Commercial Sewing Instructor Relationship Specialty Start Date End Date Brielle Mack MD PCP - General 10/23/17 06/28/20 Amarilis Mcfarlane MD [address] [place], [place] [phone] PCP - General Family Medicine 06/29/20 Bayron Barclay DO [address] [place] [address] MEDICAL ONCOLOGY, [facility] [address] [place], [place] [phone] Medical Oncologist/Automotive Porter Hematology and Oncology 04/28/23 Christine Roper PA [address] [place], [place] [phone] Physician Hourly Sales Staff Family Medicine 03/03/25 documented as of this encounter
--- OUTSIDE RECORDS SUMMARY | 2025-08-07 09:45 | XMS_ITS | Encounter Summary ---
Author Organization [facility] Facility Care Team Providers Care Skip Hoist Engineer Name Role Phone Brielle Mack MD Primary Care Provider Amarilis Mcfarlane MD Primary Care Provi julito Bayron Barclay DO Unavailable [phone] Christine Roper Unavailable [phone] Encounter Details Date Type Department Care Team (Latest Contact Info) Description 05/27/2016 Orders Only [facility] CLINCONV ProviderIvonne MD [address] [place] [address] Social History Tobacco Use Types Packs/Day Years Used Date Smoking Tobacco: Never Assessed Comments Unknown Sex and Gender Information Value Date Recorded Sex Assigned at Not on file Legal Sex Female 7:51 AM FOOD SERVICE KITCHEN SUPERVISOR Gender Identity Female 06/06/2023 10:34 AM [...] us Historical Provider CV CARDIAC SERVICES PROCE DURPETR Final Result * CARDIOLOGY REPORT (05/27/2016 12:00 AM CDT) Anatomical Region Laterality Modality Other Narrative 05/27/2016 12:00 AM CDT Ordered by an unspecified provider. us Historical Provider CV CARDIAC SERVICES PROCE DURES Final Result documented in this encounter Visit Diagnoses Not on filedocumented in this encounter Additional Health Concerns Infection Onset Date Last Indicated Resolved Time COVID: Suspected 09/13/2021 09/13/2021 09/14/2021 12:34 AM FOOD SERVICE KITCHEN SUPERVISOR COVID: Suspected 05/25/2024 05/25/2024 05/25/2024 9:56 AM CDT documented as of this encounter Care Teams Skip Hoist Engineer Relationship Specialty Start Date End Date Brielle Mack MD PCP - General 10/23/17 06/28/20 Amarilis Mcfarlane MD [address] [place], [place] [phone] PCP - General Family Medicine 06/29/20 Bayron Barclay DO [address] [place] [address] MEDICAL ONCOLOGY, [facility] [address] [place], [place] [phone] Medical Oncologist/Delivery Man Hematology and Oncology 04/28/23 Christine Roper PA [address] [place], [place] [id number] Physician Equipment Processor Family Medicine 03/03/25 documented as of this encounter
--- OUTSIDE RECORDS SUMMARY | 2025-08-07 09:45 | XMS_ITS | Encounter Summary ---
Author Organization [facility] Facility Care Team Providers Care Fare Register Repairer Name Role Phone Brielle Mack MD Primary Care Provider Amarilis Mcfarlane MD Primary Care Provi julito Bayron Barclay DO Unavailable [phone] Christine Roper Unavailable [phone] Encounter Details Date Type Department Care Team (Latest Contact Info) Description 02/29/2016 Orders Only [facility] CLINCONV ProviderIvonne MD [address] [place] [id number] Social History Tobacco Use Types Packs/Day Years Used Date Smoking Tobacco: Never Assessed Comments Unknown Sex and Gender Information Value Date Recorded Sex Assigned at Not on file Legal Sex Female 7:51 AM AIRCRAFT PNEUDRAULIC SYSTEMS MECHANIC Gender Identity Female 06/06/2023 10:34 AM CDT [...] COVID: Suspected 09/13/2021 09/13/2021 09/14/2021 12:34 AM AIRCRAFT PNEUDRAULIC SYSTEMS MECHANIC COVID: Suspected 05/25/2024 05/25/2024 05/25/2024 9:56 AM CDT documented as of this encounter Care Teams Fare Register Repairer Relationship Specialty Start Date End Date Brielle Mack MD PCP - General 10/23/17 06/28/20 Amarilis Mcfarlane MD [address] [place] [address] PCP - General Family Medicine 06/29/20 Bayron Barclay DO [address] [place] [address] MEDICAL ONCOLOGY, [facility] [address] [place] [address] Medical Oncologist/Production Superintendent Hematology and Oncology 04/28/23 Christine Roper PA [address] [place] [address] Physician Still Operator Helper Family Medicine 03/03/25 documented as of this encounter
--- OUTSIDE RECORDS SUMMARY | 2025-08-07 09:45 | XMS_ITS | Encounter Summary ---
Author Organization [facility] Facility Care Team Providers Care Fur Buyer Name Role Phone Brielle Mack MD Primary Care Provider Amarilis Mcfarlane MD Primary Care Provi julito Bayron Barclay DO Unavailable [phone] Christine Roper Unavailable [phone] Encounter Details Date Type Department Care Team (Latest Contact Info) Description 08/29/2016 Orders Only [facility] CLINCONV ProviderIvonne MD [address] [place] [address] Social History Tobacco Use Types Packs/Day Years Used Date Smoking Tobacco: Never Assessed Comments Unknown Sex and Gender Information Value Date Recorded Sex Assigned at Not on file Legal Sex Female 7:51 AM TABLE SAW OPERATOR Gender Identity Female 06/06/2023 10:34 AM CDT Sexual Orientation Straight 06/06/2023 10 :34 AM CDT documented as of this encounter Plan of Treatment Not on file documented as of this encounter Procedures Procedure Name Priority Date/Time Associated Diagnosis Comments CARDIOLOGY REPORT 09/04/2016 12: 00 AM TABLE SAW OPERATOR CARDIOLOGY REPORT 08/29/2016 12: 00 AM TABLE SAW OPERATOR documented in this encounter Results * CARDIOLOGY REPORT (09/04/2016 12:00 AM TABLE SAW OPERATOR) Anatomical Region Laterality Modality Other Narrative 09/04/2016 12:00 AM TABLE SAW OPERATOR Ordered by an unspecified provider. us Historical Provider [facility] CARDIAC SERVICES PROCE DURES Final Result * CARDIOLOGY REPORT (08/29/2016 12:00 AM TABLE SAW OPERATOR) Anatomical Region Laterality Modality Other Narrative 08/29/2016 12:00 AM TABLE SAW OPERATOR Ordered by an unspecified provider. us Historical Provider CV CARDIAC SERVICES PROCE DURES Final Result documented in this encounter Visit Diagnoses Not on filedocumented in this encounter Additional Health Concerns Infection Onset Date Last Indicated Resolved Time COVID: Suspected 09/13/2021 09/13/2021 09/14/2021 12:34 AM TABLE SAW OPERATOR COVID: Suspected 05/25/2024 05/25/2024 05/25/2024 9:56 AM CDT documented as of this encounter Care Teams Fur Buyer Relationship Specialty Start Date End Date Brielle Mack MD PCP - General 10/23/17 06/28/20 Amarilis Mcfarlane MD [address] [place], [place] [id number] PCP - General Family Medicine 06/29/20 Bayron Barclay DO [address] [place] [address] MEDICAL ONCOLOGY, [facility] [address] [place], [place] [id number] Medical Oncologist/Woodwind Instrument Repairer Hematology and Oncology 04/28/23 Christine Roper PA [address] [place], [place] [address] Physician Development Associate Family Medicine 03/03/25 documented as of this encounter
--- OUTSIDE RECORDS SUMMARY | 2025-08-07 09:47 | XMS_ITS | Encounter Summary ---
Author Organization [facility] Healthcare Address [address] [place] [address] Care Team Providers Care Environmental Geologist Name Role Phone Amarilis Mcfarlane MD Primary Care Provi julito Bayron Barclay DO Unavailable [phone] Christine Roper Unavailable [phone] Encounter Details Date Type Department Care Team (Late st Contact Info) Description 07/19/2025 Results Follow-Up [facility] Family Medicine [address] [id number] Amarilis Mcfarlane MD [address] [address] Comprehensive metabolic panel, CBC with auto differential, Lipid panel, Additional followed-up results: 4 Social History Tobacco Use Types Packs/Day Years [...] on file Legal Sex Female 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 Gender Identity Female 06/06/2023 10:34 AM CDT Sexual Orientation Straight 06/06/2023 10 :34 AM CDT documented as of this encounter Plan of Treatment Not on file documented as of this encounter Visit Diagnoses Not on filedocumented in this encounter Care Teams Environmental Geologist Relationship Specialty Start Date End Date Amarilis Mcfarlane MD [address] [place] [address] PCP - General Family Medicine 06/29/20 Bayron Barclay DO [address] [place] [address] MEDICAL ONCOLOGY, [facility] [address] [place] [address] Medical Oncologist/Fare Enforcement Officer Hematology and Oncology 04/28/23 Christine Roper PA [address] [place] [address] Physician Business Account Executive Family Medicine 03/03/25 documented as of this encounter
[2025-08-07 09:50] VITALS: BP 101/79; PULSE 75; RESP 18; TEMP 35.9; O2SAT 100
--- NOTE | 2025-08-07 09:56 | ED.SKABFB ---
HPI - Skin/Abscess/Foreign Bdy General Chief complaint: Skin/Abscess/Foreign Body Stated complaint: RT Foot Infection patient presents to the [facility] with complaints redness, bruising, swelling to right middle toe. Bruising and swelling with slight pain started about 2-3 weeks ago after patient stubbed this toe. Noted 2 days ago started with increased swelling and redness to the area, patient noted she did have an Augmentin at home but only 1 tablet she did take this Robbin evening and yesterday and today symptoms are improved. Patient concerned and believe she needs another full round of antibiotics. Denies numbness or tingling in foot or toes. Related Data Home Medications ?Medication ?Instructions ?Recorded ?Confirmed ?Last Taken ?Type clonidine HCl 0.1 mg tablet 0.1 mg PO .prn 08/26/24 04/18/25 Unknown History levothyroxine 88 mcg tablet mcg 03/25/25 04/18/25 Unknown History (Synthroid) famotidine 10 mg tablet 10 mg PO DAILY 04/18/25 04/18/25 Unknown History losartan 100 mg tablet 100 mg PO DAILY 04/18/25 04/18/25 Unknown History potassium chloride 10 mEq 10 meq PO DAILY 04/18/25 04/18/25 Unknown History capsule,extended release Allergies Allergy/AdvReac Type Severity Reaction Status Date / Time diphenhydramine (From AdvReac Severe Palpitation Verified 07/26/25 08:06 Benadryl) s erythromycin base AdvReac Severe Palpitation Verified 07/26/25 08:06 s anything prolongs QT AdvReac Unknown Uncoded 04/18/25 12:56 Review of Systems Constitutional: Constitutional: Reports as per HPI, Denies chills, Denies fatigue, Denies fever(s) and Denies weakness Eyes: Eyes: Reports no additional eye complaints ENT: Reports system reviewed and no additional complaints, except as documented Cardiovascular: Cardiovascular: Reports no additional cardiovascular complaints Respiratory: Respiratory: Reports no additional respiratory complaints Gastrointestinal: Gastrointestinal: Reports no additional gastrointestinal complaints Genitourinary: Genitourinary: Reports no additional female genitourinary complaints Musculoskeletal: Musculoskeletal: Reports as per HPI, Reports arthralgias, Reports joint swelling and Denies muscle cramps Comments: right 3rd toe Integumentary/Breasts: Skin/Breast: Denies pruritus, Reports erythema, Denies rash and Denies skin ulcer Comments: bruising right middle toe Neurologic: Denies numbness and Denies weakness Psychiatric: Psychiatric: Reports no additional psychiatric complaints Endocrine: Endocrine: Reports no additional endocrine complaints Hematologic/Lymphatic: Hematologic/Lymphatic: Reports no additional hematologic/lymphatic complaints Allergic/Immunologic: Allergic/Immunologic: Reports no additional allergic/immunologic complaints [facility] Past Medical History Medical History Elevated fecal calprotectin Mucus in stool Diarrhea Calculus of cystic duct without obstruction Rectal bleeding Abdominal pain Abnormal CT of the abdomen Neck pain Gastroesophageal reflux disease QT prolongation ICD (implantable cardioverter-defibrillator) battery depletion Torsades de pointes TMJ (dislocation of temporomandibular joint) GERD (gastroesophageal reflux disease) Thyroid cancer Surgical History Surgical History History of sphincterotomy of sphincter of Oddi Hx of cholecystectomy History of appendectomy Social History Social History Smoking status: Never smoker Alcohol intake: never Substance use: never Living arrangements: with family Gender identity (if verbalized by the patient): Female Spiritual care concerns: No Exam Const: General: healthy appearing and no acute distress Nutritional Appearance: well nourished Orientation/consciousness: patient oriented x3 Limitations: no limitations Resp: Effort & Inspection: normal respiratory effort Auscultation: clear to auscultation bilaterally Cardio: Rate: regular rate Rhythm: regular rhythm Skin: General skin exam: normal color Rashes: no rashes Wounds: no wounds Other: diffuse edema, erythema, and ecchymosis to right distal 3rd toe around the nail. No fluctuance or pointing noted. No crusting or drainage noted. Neuro: General: patient oriented x3 Speech: normal speech Gait exam (Neuro): Normal gait present Extrem: Right lower extremity: foot Details: normal capillary refill, abnormal to inspection, tenderness Location: of another digit Location: the 3rd digit, abnormal ROM of toe (3rd toe only ) Details: pain with active ROM and pain with passive ROM, warmth Location: of another digit Location: the 3rd digit, edema Location: of another digit Location: the 3rd digit, ecchymosis (3rd toe only ) and vascular exam Details: dorsalis pedis pulse present, posterior tibial pulse present and normal capillary refill; no foreign bodies and no puncture wound Psych: Mental Status: mental status grossly normal Affect: normal affect Attitude: cooperative Course Course Level of Care: Express Care Visit Vital Signs Vital signs: Vital Signs Temperature 96.7 F L 08/07/25 09:50 Pulse Rate 75 08/07/25 09:50 Respiratory Rate 18 08/07/25 09:50 Blood Pressure 101/79 08/07/25 09:50 Pulse Oximetry 100 08/07/25 09:50 Oxygen Delivery Room Air 08/07/25 09:50 Temperature 96.7 F L 08/07/25 09:50 Pulse Rate 75 08/07/25 09:50 Respiratory Rate 18 08/07/25 09:50 Blood Pressure 101/79 08/07/25 09:50 Pulse Oximetry 100 08/07/25 09:50 Oxygen Delivery Room Air 08/07/25 09:50 MDM - Skin/Abscess/Foreign Bdy MDM Narrative Medical decision making narrative: X-rays ordered due to trauma. Recommended warm soaks and antibiotics for infection. The patient was evaluated by myself in the express care. History is obtained from patient who is an independent historian and physical exam was performed. Available medical records were reviewed at this time. Exam findings show no acute concerns or changes; patient is non-toxic appearing and is in no distress. Patient is appropriate for outpatient treatment and follow-up. I have evaluated and discussed social determinants of health with the patient that could potentially impact subsequent diagnosis and treatment plans. Differential diagnosis and treatment plan were discussed with the patient. Patient agrees with discussion and after shared medical decision making agrees with plan of care. All questions were answered to the patient's satisfaction. Differential Diagnosis Differential diagnosis: Likely abscess of skin or subcutaneous tissue, urticaria, allergic reaction to drug, cellulitis and contact dermatitis Medical Records Attestation: I reviewed the patient's medical records. Imaging Data Attestation: I personally reviewed and interpreted this imaging study as follows: My impression: no fracture noted, arthritic changes throughout Radiologist's impression: Findings/impression: 1. No fracture or dislocation identified right third toe. Reviewed, dictated and finalized at location R. N IRONER OPERATOR Discharge Plan Discharge Clinical Impression: Cellulitis of third toe, right Patient Disposition: Home Condition: Stable Instructions: Antibiotic Form, Cellulitis (ED) Additional Instructions: No fracture noted on your x-ray Clean with soap and water only; Avoid using alcohol and peroxide. Elevate the affected area if possible Alternate Tylenol/ibuprofen for as needed for pain Acetaminophen(Tylenol) 650-1000mg every 4-6hours with max of 4000mg/day. Nonsteroidal anti-inflammatory agent (NSAIDs-ibuprofen): 400mg every 4-6hours with max 2400mg/day Take antibiotic until it's gone. Please schedule a follow up visit with your personal physician for further evaluation and treatment within 3-5days OR if your symptoms persist, change or worsen significantly before you can contact your personal physician then please, without delay, go to the emergency department for further evaluation. Patient Language: Persian Prescriptions: New cephalexin 500 mg capsule 500 mg PO Q12H Qty: 20 0RF No Action potassium chloride 10 mEq capsule, extended release 10 meq PO DAILY levothyroxine [Synthroid] 88 mcg tablet losartan 100 mg tablet 100 mg PO DAILY clonidine HCl 0.1 mg tablet 0.1 mg PO .prn famotidine 10 mg tablet 10 mg PO DAILY dicyclomine 10 mg capsule See Rx Instructions .ROUTE .COMPLEX Qty: 90 0RF Dose Instruction: TAKE 1 CAPSULE BY MOUTH THREE TIMES DAILY FOR ABDOMINAL DISCOMFORT Rx Instructions: TAKE 1 CAPSULE BY MOUTH THREE TIMES DAILY FOR ABDOMINAL DISCOMFORT Follow-up/Referrals: Maeve,MD Amarilis [Primary Care Provider, Unknown] Time of Disposition: 10:16
== END 2025-08-07 10:24 | disposition home or self-care (01) ==
PROVIDERS: Emergency Provider Nurse Practitioner Family; PCP Family Medicine
DX: L03.031 Cellulitis of right toe (principal); K21.9 Gastro-esophageal reflux disease without esophagitis; Z95.810 Presence of automatic (implantable) cardiac defibrillator; Z85.850 Personal history of malignant neoplasm of thyroid
CPT/HCPCS: 73660; 99213; G0463